=== PATIENT | male | born 1965 | race Caucasian/White ===

== ENCOUNTER 2022-03-11 10:38 | Emergency (ER) | payer OTHER, SELFPAY ==
--- NOTE | ~2022-03-11 | XR_ITS ---
EXAMINATION: XR FOOT, RIGHT CLINICAL INFORMATION: Stepped on screw COMPARISON: None TECHNIQUE: AP, lateral, and oblique views of the right foot. XR/XR foot RT 2V FINDINGS/IMPRESSION: Metallic screw projects into the soft tissues of the underside of the foot. There is no underlying osseous injury. Posterior and plantar calcaneal enthesophytes. No gross ankle joint effusion.
[2022-03-11 10:48] VITALS: BP 127/80; PULSE 82; RESP 16; TEMP 36.5; O2SAT 95; BMI 37.3
--- NOTE | 2022-03-11 10:54 | ED_ITS ---
HPI - General Adult General Chief complaint: General Medical Stated complaint: Screw in R foot Time Seen by Provider: 03/11/22 10:54 Source: patient Mode of arrival: ambulatory Limitations: no limitations History of Present Illness HPI narrative: Patient is a 57 year old male presenting to the emergency department today with a screw in his right foot. Patient states that he was walking barefoot when he stepped on a screw and now it is stuck in his foot. Patient states that his house is currently under construction and that is why a screw was left out. Patient denies any dizziness, lightheadedness, abdominal pain, nausea, vomiting, fever, chills, blurry vision, double vision, loss of vision, chest pain, difficulty breathing, shortness of breath, back pain, night sweats, pain with urination, increased urinary frequency, increased urinary urgency, blood in his urine or stool, syncope or a near syncopal episode, bowel incontinence, bladder incontinence, bowel retention, bladder retention, or any other complaints at this time. Patient states that he is not sure of his last tetanus shot and is considered a pre-diabetic. Onset (ago): minute(s) Location: right and lower extremity (foot) Radiation: non-radiation Severity: mild Severity scale (1-10): 3 Quality: dull Pain Consistency: constant Relieving factors: none Exacerbating factors: none Associated symptoms: denies other symptoms Treatments prior to arrival: none Related Data Previous Rx's Medication Instructions Recorded cephalexin 500 mg capsule 500 mg PO Q6H 10 days #40 caps 03/11/22 ciprofloxacin HCl 500 mg tablet 500 mg PO BID 10 days #20 tabs 03/11/22 (Cipro) Allergies Allergy/AdvReac Type Severity Reaction Status Date / Time No Known Allergies Allergy Unverified 04/01/20 16:10 [No Known Allergies*] Review of Systems Constitutional: Constitutional: Reports no additional constitutional complaints, Denies chills, Denies fever(s) and Denies night sweats Eyes: Eyes: Reports no additional eye complaints, Denies blurry vision, Denies change in vision, Denies diplopia, Denies eye discharge, Denies loss of vision and Denies eye pain ENT: Denies dizziness Cardiovascular: Cardiovascular: Reports no additional cardiovascular complaints, Denies chest pain, Denies lightheadedness, Denies Loss of Consciousness and Denies dyspnea Respiratory: Respiratory: Reports no additional respiratory complaints and Denies dyspnea Gastrointestinal: Gastrointestinal: Reports no additional gastrointestinal complaints, Denies abdominal pain, Denies melena, Denies hematochezia, Denies change in bowel habits and Denies change in stool character Genitourinary: Genitourinary: Reports no additional male genitourinary complaints, Denies hematuria, Denies oliguria, Denies difficulty urinating, Denies dysuria, Denies urinary frequency, Denies urinary hesitancy, Denies urinary incontinence and Denies urinary urgency Musculoskeletal: Musculoskeletal: Reports no additional musculoskeletal complaints, Denies numbness and Denies tingling Comments: screw in bottom of right foot Neurologic: Denies dizziness, Denies loss of vision, Denies numbness and Denies tingling Psychiatric: Psychiatric: Reports no additional psychiatric complaints Endocrine: Endocrine: Reports no additional endocrine complaints Hematologic/Lymphatic: Hematologic/Lymphatic: Reports no additional hematologic/lymphatic complaints Allergic/Immunologic: Allergic/Immunologic: Reports no additional allergic/immunologic complaints PMFSH Past Medical History Attestation statement: The following information was validated with the patient. Source: old records reviewed Social History Social History Advance Directives: Yes Advance Directives Information Provided: Yes Advance Directives on File: No Physical Exam ED Vital Signs: Vital Signs - 24 hr 03/11/22 10:48 Temperature 97.7 F Pulse Rate 82 Respiratory Rate 16 Blood Pressure 127/80 Pulse Oximetry 95 Oxygen Delivery Method Room Air BMI result Body Mass Index 37.3 Const General: cooperative, no acute distress, alert and awake Nutritional Appearance: well nourished Orientation/consciousness: patient oriented x3 Limitations: no limitations HENVT Head: Yes normal to inspection and Yes atraumatic Ears: hearing grossly normal bilaterally and external ears normal General nose exam: Normal external nose present, no nasal discharge noted and no epistaxis Face and sinus: Yes normal facial exam, No abrasion and No laceration Mouth: Normal oral and palatal mucosa present, no drooling and no muffled voice Eyes General: appearance normal, both eyes and all related structures Periorbital: periorbital findings normal Eyelids: Yes eyelids normal Conjunctivae: conjunctivae normal Pupils: Equal, round and reactive pupils present EOM: EOMs intact bilaterally Neck Neck: Yes normal visual inspection, Yes full ROM and Yes no lymphadenopathy Chest Chest palpation & inspection: normal inspection of the chest Resp Effort & Inspection: normal respiratory effort and able to speak in complete sentences Auscultation: clear to auscultation bilaterally Cardio Rate: regular rate Rhythm: regular rhythm GI Inspection: Yes normal to inspection Neuro General: patient oriented x3 and moves all extremities Cranial nerves: Yes Equal, round and reactive pupils present Cognition (Neuro): normal cognition Motor exam (neuro): 5/5 motor strength present throughout Sensory Exam: Normal double simultaneous stimulation for sensation Coordination: [id number] test normal Extrem Other: screw impaled in the plantar aspect of the right foot General: Yes full ROM and Yes capillary refill normal Psych Appearance: grossly normal Mental Status: mental status grossly normal Affect: normal affect Attitude: cooperative Thought process: Normal thought process present Thought content: Normal thought content present Insight: Good insight present (Psych) Procedures Foreign Body Removal Time Out Performed: yes Site: right and foot Description of foreign body: other (screw) Sedation/Analgesia: none Technique: manual removal and irrigation Confirmed by:: direct visualization Complications: none Post-procedure exam: awake, alert Neurovascular: normal distal pulse, normal capillary fill, distal light touch sensation intact, distal motor function normal, no signs of compartment syndrome and no change from pre-procedure Medical Decision Making MDM Narrative Medical decision making narrative: Patient is a 57 year old male presenting to the emergency department today with a screw in his right foot. Patient's physical exam showed a screw impaled in the plantar aspect of the right foot, no active bleeding around the screw. Patient's right foot x-ray showed a metallic screw projecting into the soft tissue. I explained my physical exam findings as well as all test results to the patient. I answered all questions asked by the patient. The screw was removed, without incident. I stressed the importance of the patient taking his medication as prescribed. I stressed the importance of the patient following up with his primary care provider. I stressed the importance of the patient returning to the emergency department immediately if his symptoms were to worsen or if he were to develop any dizziness, shortness of breath, difficulty breathing, chest pain, blurry vision, loss of vision, nausea, vomiting, abdominal pain, fever, chills, back pain, or any other complaints. Patient verbalized agreement and understanding with this treatment plan and discharge. Differential Diagnosis Differential Diagnosis: foreign body removal Medical Records Medical records reviewed: Yes I reviewed the patient's medical records. Imaging Data Right foot x-ray: Attestation: I personally reviewed and interpreted this imaging study as follows: My impression: Screw in soft tissue. Radiologist's impression: Vent. Rate: 078 BPM ? ? Atrial Rate: 078 BPM P-R Int: 160 ms? QRS Dur: 080 ms QT Int: 392 ms ? ? ? P-R-T Axes: 054 057 042 degrees QTc Int: 446 ms ? Normal sinus rhythm Normal ECG When compared with ECG of 10-SEP-2020 06:14, No significant change was found Discharge Plan Discharge Clinical Impression: Foreign body in foot Patient Disposition: Home, Self-Care Instructions: Puncture Wound (ED) Additional Instructions: Do NOT soak the punctured area. Keep the punctured area covered. Perform daily wound checks and daily dressing changes. Follow up with your primary care provider. Return to the emergency department immediately if your symptoms worsen or if you develop any dizziness, shortness of breath, difficulty breathing, ch est pain, blurry vision, loss of vision, nausea, vomiting, abdominal pain, fever, chills, back pain, or any other complaints. Prescriptions: New cephalexin 500 mg capsule 500 mg PO Q6H 10 Days Qty: 40 0RF ciprofloxacin HCl [Cipro] 500 mg tablet 500 mg PO BID 10 Days Qty: 20 0RF Referrals: [facility] [Provider Group] (Call to establish and follow up with a primary care provider. If you already have a primary care provider, please follow up with them. ) [facility] [facility] [place] [Provider Group] (Call to establish and follow up with a primary care provider. If you already have a primary care provider, please follow up with them. ) [facility] [Provider Group] (Call to establish and follow up with a primary care provider. If you already have a primary care provider, please follow up with them. ) Kamron Hyde DPM [Physician] - Interventions: ED Discharge Assessment Last Done: 03/11/22 11:59 Discharge Date/Time: 03/11/22 12:02 Print Language: Azeri
[2022-03-11] MEDS: Diphth,Pertus(ACell),Tet Adult 0.5 ML SYRINGE IM (11:40)
== END 2022-03-11 12:02 | disposition home or self-care (01) ==
PROVIDERS: Emergency Provider Emergency Medicine
DX: S91.341A Puncture wound with foreign body, right foot, initial encounter (principal); W45.8XXA Other foreign body or object entering through skin, initial encounter; Y93.H3 Activity, building and construction; Y92.019 Unspecified place in single-family (private) house as the place of occurrence of the external cause; Y99.9 Unspecified external cause status
CPT/HCPCS: 73620; 90471; 90715; 99282; 99284

== ENCOUNTER 2022-05-04 06:17 | Emergency (ER) | payer OTHER, SELFPAY ==
--- NOTE | ~2022-05-04 | US_ITS ---
EXAMINATION: US VENOUS ULTRASOUND WITH DOPPLER LOWER EXTREMITY, RIGHT CLINICAL INFORMATION: Right lower extremity pain with weightbearing COMPARISON: None TECHNIQUE: Ultrasound of the deep veins is performed from the hip to the calf with compression sonography and color and pulse Doppler assessment. Spectral analysis with color-flow imaging is performed. FINDINGS: There is normal venous compression and respiratory variation and augmented flow. The visualized common femoral vein, superficial femoral vein, profunda femoral vein, popliteal vein, and the trifurcation region shows no evidence of deep venous thrombosis. There is no significant popliteal fossa cyst. The contralateral left common femoral vein appears normal. If the patient's symptoms persist, followup ultrasound in 5 days 7 days might be of value to exclude proximal propagation from a non-visualized calf vein. US/US venous duplex LE RT IMPRESSION: No DVT demonstrated in the right lower extremity.
[2022-05-04 06:24] VITALS: BP 117/75; PULSE 109; RESP 20; TEMP 36.8; O2SAT 97; BMI 36.1
[2022-05-04 08:00] VITALS: BP 105/68; PULSE 91; RESP 14; TEMP 36.8; O2SAT 97
--- NOTE | 2022-05-04 08:12 | ED.EXTPRO ---
HPI - Extremity Problem General Chief complaint: Extremity Problem Stated complaint: leg pain radiates up Time Seen by Provider: 05/04/22 08:02 Source: patient Mode of arrival: ambulatory Limitations: no limitations History of Present Illness HPI Narrative: Patient is a 57-year-old male who presents emergency department for evaluation of atraumatic right leg pain. He reports at 1900 last night he was lying in bed when he realized he began developing right knee pain that was radiating up to the right thigh in towards his right hip. Today he states the pain is mostly within the thigh. He feels it is more painful with weight-bearing. Denies any prior history of pain like this in the past. He trialed Advil this morning without significant improvement. Denies fevers, chills, redness, warmth, rashes, wounds or lesions, numbness, tingling, swelling, fall or injury. Denies chest pain, shortness of breath, difficulty breathing. Denies history of DVT/PE, coagulation disorder, recent prolonged immobilization, surgery, personal history of cancer. Reports a history of arthritis to the knee but this does not feel typical of pain he has experienced in the past. He does report that a few months ago she stepped on a screw that was imbedded into the right foot, he came to the emergency department have that removed and had his tetanus vaccine updated at that time. Related Data Previous Rx's Medication Instructions Recorded cephalexin 500 mg capsule 500 mg PO Q6H 10 days #40 caps 03/11/22 ciprofloxacin HCl 500 mg tablet 500 mg PO BID 10 days #20 tabs 03/11/22 (Cipro) Allergies Allergy/AdvReac Type Severity Reaction Status Date / Time No Known Allergies Allergy Unverified 04/01/20 16:10 [No Known Allergies*] Review of Systems Review of Systems: Constitutional: No weight loss, fever, chills, weakness or fatigue. Skin: No rash or itching. Cardiovascular: No chest pain, chest pressure or chest discomfort. No palpitations or pedal edema. Respiratory: No shortness of breath, cough or sputum production. Gastrointestinal: No anorexia, nausea, vomiting or diarrhea. No abdominal pain or blood in stool. Genitourinary: No burning micturition. No urinary frequency or incontinence. Musculoskeletal: Positive muscle pain. Psychiatric: No depression or anxiety. Yes all other systems are reviewed and are negative PMFSH Past Medical History Attestation statement: The following information was validated with the patient. Source: old records reviewed Social History Social History Advance Directives: Yes Advance Directives Information Provided: Yes Advance Directives on File: No Physical Exam Vital Signs: Vital Signs: Last Vital Signs Temp 98.1 F 05/04/22 12:01 Pulse 101 H 05/04/22 12:01 Resp 15 05/04/22 12:01 BP 115/78 05/04/22 12:01 Pulse Ox 98 05/04/22 12:01 O2 Del Method 05/04/22 12:01 BMI result Body Mass Index 36.1 Appearance: Alert.?Oriented to person, place and time. No acute distress.?Normal affect. Eyes: Pupils equal, round and reactive to light.? ENT: Pharynx normal.?? Neck: Normal inspection.? Neck supple.?? CVS: Heart sounds normal. Normal heart rate and rhythm.? Pulses normal.?? Respiratory: No respiratory distress.? Lung sounds clear to auscultation bilaterally?? Abdomen: Soft and non-tender. Normoactive bowel sounds. Skin: Skin warm and dry.? Normal skin color.? Extremities: No lower extremity edema.? No calf ttp. 2+ DP/PT pulse bilaterally. Full AROM to the right hip knee and ankle intact. Neuro: Moves all extremities spontaneously. Sensation intact bilaterally. CN II-XII intact. No focal neuro deficits. Ambulates with normal steady gait. Course Course Course Narrative: Patient is a 57-year-old male with a past medical history of hypertension, hypercholesterolemia, glucose intolerance, anxiety who presents emergency department for evaluation of atraumatic right leg pain. Upon physical exam there are no abnormal findings. Extremities neurovascularly intact distally. No fevers, chills, redness, warmth, rash, does not appear consistent with an infectious etiology. He is able to ambulate with a steady gait though this does exacerbate his pain. Will obtain CBC, CMP, CPK, ultrasound venous duplex to exclude DVT. Reevaluation(s) Reevaluation #1: CBC reveals a normocytic anemia and leukocytosis at 14.1. No signs of infectious process no fever, chills, recent upper respiratory or GI symptoms, no dysuria or urinary frequency. Denies any recent known tick bites, or history of Lyme. CMP reveals acute kidney injury with BUN of 40 and creatinine of 1.46, patient received 1 L normal saline IVF, magnesium is low at 1.4 will replace with 2 g IV, CK 224. Will plan to repeat labs after IV fluids and magnesium. Ultrasound the right lower extremity reveals no DVT. Reevaluation #2: Magnesium is normalized, renal function with improvement. Suspect that myalgias were secondary to hypomagnesemia was well as dehydration. Patient with improvement in pain, currently 2/10. Ambulatory with a steady gait. Discussed plan of care for discharge home, outpatient follow-up with primary care provider. Reviewed worsens then return to emergency department for. All questions were answered, patient was discharged home in stable condition. Time: 14:24 MDM - Extremity (Nontraumatic) Medical Records Attestation: I reviewed the patient's medical records. Lab Data Attestation: I reviewed the patient's lab results. Result diagrams: 05/04/22 09:18 05/04/22 13:19 Labs: Lab Results 05/04/22 05/04/22 05/04/22 Range/Units 09:18 09:18 09:24 WBC 14.1 H (4.8-10.8) X10*3/uL RBC 4.53 L (4.60-5.80) X10*6/uL Hgb 13.1 L (14.0-18.0) g/dl Hct 38.1 L (42.0-52.0) % MCV 84.1 (80.0-98.0) fL MCH 28.9 (27.0-33.0) pg MCHC 34.4 (31.0-36.0) g/dl RDW 13.2 (11.0-16.0) % Plt Count 211 (160-400) X10*3/uL MPV 10.2 (9.4-12.4) fL Immature Gran % (Auto) 1.5 H (0.0-0.4) % Neut % (Auto) 75.5 H (45-73) % Lymph % (Auto) 12.9 L (20-40) % [place] % (Auto) 8.8 (2-11) % Eos % (Auto) 0.9 (0-4) % Baso % (Auto) 0.4 (0-2) % Lymph # (Auto) 1.8 (1.2-4.9) X10*3/uL [place] # (Auto) 1.2 (0.1-1.2) X10*3/uL Eos # (Auto) 0.1 (0.0-0.4) X10*3/uL Baso # (Auto) 0.1 (0.0-0.2) X10*3/uL Abs Immat Gran (auto) 0.21 H (0.00-0.03) X10*3/uL Absolute Neuts (auto) 10.6 H (2.0-8.3) x10*3/uL Absolute Nucleated RBC 0.000 (0.0-0.012) X10*3/uL Nucleated RBC % (auto) 0.0 (0.0-0.2) /100WBC Sodium 138 (135-145) mmol/L Potassium 3.8 (3.3-5.1) mmol/L Chloride 103 (96-108) mmol/L Carbon Dioxide 22 (22-29) mmol/L Anion Gap 17 (12-20) BUN 40 H (9-16) mg/dL Creatinine 1.46 H (0.5-1.4) mg/dL Estim Creat Clear Calc 64.4 Estimated GFR 50 Random Glucose 124 H (60-115) mg/dL Calcium 9.2 (8.4-10.2) mg/dL Magnesium 1.4 L* (1.6-2.6) mg/dL Total Bilirubin 0.8 (0.0-1.0) mg/dL AST 27 (5-37) U/L ALT 55 H (0-40) U/L Alkaline Phosphatase 82 (39-117) U/L Total Creatine Kinase 224 H (38-174) U/L Total Protein 7.4 (6.5-8.0) g/dL Albumin 4.5 (3.5-5.0) g/dL Urine Color Yellow Urine Appearance Clear Urine pH 5.0 (5.0-9.0) Ur Specific [place] 1.025 (1.005-1.025) Urine Protein Negative (Neg-Trace) mg/dL Urine Glucose (UA) Negative (Negative) mg/dL Urine Ketones Trace (Negative) mg/dL Urine Blood Negative (Negative) Urine Nitrite Negative (Negative) Ur Leukocyte Esterase Negative (Negative) 05/04/22 Range/Units 13:19 WBC (4.8-10.8) X10*3/uL RBC (4.60-5.80) X10*6/uL Hgb (14.0-18.0) g/dl Hct (42.0-52.0) % MCV (80.0-98.0) fL MCH (27.0-33.0) pg MCHC (31.0-36.0) g/dl RDW (11.0-16.0) % Plt Count (160-400) X10*3/uL MPV (9.4-12.4) fL Immature Gran % (Auto) (0.0-0.4) % Neut % (Auto) (45-73) % Lymph % (Auto) (20-40) % [place] % (Auto) (2-11) % Eos % (Auto) (0-4) % Baso % (Auto) (0-2) % Lymph # (Auto) (1.2-4.9) X10*3/uL [place] # (Auto) (0.1-1.2) X10*3/uL Eos # (Auto) (0.0-0.4) X10*3/uL Baso # (Auto) (0.0-0.2) X10*3/uL Abs Immat Gran (auto) (0.00-0.03) X10*3/uL Absolute Neuts (auto) (2.0-8.3) x10*3/uL Absolute Nucleated RBC (0.0-0.012) X10*3/uL Nucleated RBC % (auto) (0.0-0.2) /100WBC Sodium 141 (135-145) mmol/L Potassium 3.8 (3.3-5.1) mmol/L Chloride 103 (96-108) mmol/L Carbon Dioxide 25 (22-29) mmol/L Anion Gap 17 (12-20) BUN 34 H (9-16) mg/dL Creatinine 1.33 (0.5-1.4) mg/dL Estim Creat Clear Calc 70.7 Estimated GFR 55 Random Glucose 107 (60-115) mg/dL Calcium 9.2 (8.4-10.2) mg/dL Magnesium 1.6 (1.6-2.6) mg/dL Total Bilirubin 1.0 (0.0-1.0) mg/dL AST 21 (5-37) U/L ALT 48 H (0-40) U/L Alkaline Phosphatase 75 (39-117) U/L Total Creatine Kinase (38-174) U/L Total Protein 7.1 (6.5-8.0) g/dL Albumin 4.4 (3.5-5.0) g/dL Urine Color Urine Appearance Urine pH (5.0-9.0) Ur Specific [place] (1.005-1.025) Urine Protein (Neg-Trace) mg/dL Urine Glucose (UA) (Negative) mg/dL Urine Ketones (Negative) mg/dL Urine Blood (Negative) Urine Nitrite (Negative) Ur Leukocyte Esterase (Negative) Imaging Data Venous US: Radiologist's impression: US/US venous duplex LE RT IMPRESSION: No DVT demonstrated in the right lower extremity. Discharge Plan Discharge Clinical Impression: Myalgia, Acute dehydration Patient Disposition: Home, Self-Care Instructions: Dehydration (ED), Musculoskeletal Pain (ED) Additional Instructions: As we discussed, your myalgias, muscle aches, or likely secondary to the dehydration and lower magnesium levels. Your magnesium was replaced while in the emergency department any received IV fluids with improvement in her lab work. Please be sure to rest, stay well hydrated, You can take ibuprofen 200 mg, 3 tablets (600mg) every 6-8 hours as needed for pain, in addition to Tylenol 500 mg, 2 tablets (1,000mg) every 4-6 hours as needed for pain, but not to exceed 3 doses daily (3,000mg).? Contact your primary care provider to arrange for a follow-up visit next week, at that time they may consider repeating your blood work. Return to the emergency department with any new or worsening symptoms or concerns. Prescriptions: No Action cephalexin 500 mg capsule 500 mg PO Q6H 10 Days Qty: 40 0RF ciprofloxacin HCl [Cipro] 500 mg tablet 500 mg PO BID 10 Days Qty: 20 0RF Discharge Date/Time: 05/04/22 15:00
[2022-05-04 09:25] LABS: MANUAL DIFF FLAG NO
[2022-05-04 09:27] LABS: Basophils Absolute Auto 0.1 X10*3/uL (0.0-0.2); Basophils Percent Auto 0.4 % (0-2); Eosinophils Absolute Auto 0.1 X10*3/uL (0.0-0.4); Eosinophils Percent Auto 0.9 % (0-4); Hematocrit 38.1 % (42.0-52.0); Hemoglobin 13.1 g/dl (14.0-18.0); Imm Gran Abs Auto 0.21 X10*3/uL (0.00-0.03); Imm Gran Pct Auto 1.5 % (0.0-0.4); Lymphocytes Absolute Auto 1.8 X10*3/uL (1.2-4.9); Lymphocytes Percent Auto 12.9 % (20-40); Mean Corpuscular HGB Conc 34.4 g/dl (31.0-36.0); Mean Corpuscular Hemoglobin 28.9 pg (27.0-33.0); Mean Corpuscular Volume 84.1 fL (80.0-98.0); Mean Platelet Volume 10.2 fL (9.4-12.4); Monocytes Absolute Auto 1.2 X10*3/uL (0.1-1.2); Monocytes Percent Auto 8.8 % (2-11); Neutrophils Absolute Auto 10.6 x10*3/uL (2.0-8.3); Neutrophils Percent Auto 75.5 % (45-73); Platelet Count 211 X10*3/uL (160-400); Red Blood Count 4.53 X10*6/uL (4.60-5.80); Red Cell Distribution Width 13.2 % (11.0-16.0); White Blood Count 14.1 X10*3/uL (4.8-10.8)
[2022-05-04 09:37] LABS: Appearance Urine Clear; Color Urine Yellow; Glucose Urine UA Negative (Negative); Leukocyte Esterase Urine Negative (Negative); Nitrite Urine Negative (Negative); Specific Gravity - Urine 1.025 (1.005-1.025); Urine Blood Negative (Negative); Urine Ketones Trace mg/dL (Negative); Urine Protein Negative (Neg-Trace)
[2022-05-04 09:56] LABS: Alanine Aminotransferase 55 U/L (0-40); Albumin Level 4.5 g/dL (3.5-5.0); Alkaline Phosphatase 82 U/L (39-117); Anion Gap 17 (12-20); Aspartate Amino Transferase 27 U/L (5-37); Bilirubin Total 0.8 mg/dL (0.0-1.0); Blood Urea Nitrogen 40 mg/dL (9-16); Calcium 9.2 mg/dL (8.4-10.2); Carbon Dioxide 22 mmol/L (22-29); Chloride 103 mmol/L (96-108); Creatinine Clr Calc Pharmacy 64.4; Estimated Glomerular Filt Rate 50; Glucose Random 124 mg/dL (60-115); Magnesium 1.4 mg/dL (1.6-2.6); Potassium 3.8 mmol/L (3.3-5.1); Sodium 138 mmol/L (135-145); Total Protein 7.4 g/dL (6.5-8.0)
[2022-05-04] MEDS: Magnesium Sulfate/H2O 2 GM/50 ML PIGGYBACK IV (11:19)
[2022-05-04] MEDS: 0.9 % Sodium Chloride 1,000 ML 999 ML IV (11:23)
[2022-05-04 11:32] VITALS: BP 107/71; PULSE 97; RESP 14; TEMP 36.7; O2SAT 98
[2022-05-04 12:01] VITALS: BP 115/78; PULSE 101; RESP 15; TEMP 36.7; O2SAT 98
[2022-05-04 14:13] LABS: Alanine Aminotransferase 48 U/L (0-40); Albumin Level 4.4 g/dL (3.5-5.0); Alkaline Phosphatase 75 U/L (39-117); Anion Gap 17 (12-20); Aspartate Amino Transferase 21 U/L (5-37); Blood Urea Nitrogen 34 mg/dL (9-16); Calcium 9.2 mg/dL (8.4-10.2); Carbon Dioxide 25 mmol/L (22-29); Chloride 103 mmol/L (96-108); Creatinine Clr Calc Pharmacy 70.7; Estimated Glomerular Filt Rate 55; Glucose Random 107 mg/dL (60-115); Magnesium 1.6 mg/dL (1.6-2.6); Potassium 3.8 mmol/L (3.3-5.1); Sodium 141 mmol/L (135-145); Total Protein 7.1 g/dL (6.5-8.0)
== END 2022-05-04 15:00 | disposition home or self-care (01) ==
PROVIDERS: Nurse Practitioner Family; Emergency Provider Emergency Medicine
DX: M79.661 Pain in right lower leg (principal); R60.0 Localized edema; M79.10 Myalgia, unspecified site; E86.0 Dehydration; Z79.899 Other long term (current) drug therapy
CPT/HCPCS: 36415; 80053; 81003; 82550; 83735; 85025; 93971; 96365; 96366; 99283; 99284; J3475

== ENCOUNTER 2022-11-16 05:24 | Emergency (ER) | payer OTHER, SELFPAY ==
[2022-11-16 05:28] VITALS: BP 98/69; PULSE 107; RESP 18; TEMP 36.3; O2SAT 96; BMI 26.6
[2022-11-16 06:08] LABS: Basophils Absolute Auto 0.1 X10*3/uL (0.0-0.2); Basophils Percent Auto 0.7 % (0-2); Eosinophils Absolute Auto 0.2 X10*3/uL (0.0-0.4); Hematocrit 38.1 % (42.0-52.0); Imm Gran Abs Auto 0.06 X10*3/uL (0.00-0.03); Imm Gran Pct Auto 0.6 % (0.0-0.4); Lymphocytes Percent Auto 19.1 % (20-40); MANUAL DIFF FLAG NO; Mean Corpuscular HGB Conc 34.1 g/dl (31.0-36.0); Mean Corpuscular Hemoglobin 28.7 pg (27.0-33.0); Mean Corpuscular Volume 84.1 fL (80.0-98.0); Monocytes Percent Auto 9.3 % (2-11); Neutrophils Percent Auto 68.3 % (45-73); Platelet Count 235 X10*3/uL (160-400); Red Blood Count 4.53 X10*6/uL (4.60-5.80); Red Cell Distribution Width 13.2 % (11.0-16.0); White Blood Count 10.3 X10*3/uL (4.8-10.8)
[2022-11-16 06:08] LABS: Appearance Urine Clear; Color Urine Yellow; Glucose Urine UA Negative (Negative); Leukocyte Esterase Urine Trace (Negative); Nitrite Urine Negative (Negative); UMIC TRIGGER UACC YES; Urine Blood Negative (Negative); Urine Ketones Negative (Negative); Urine Protein Negative (Neg-Trace)
[2022-11-16 06:11] LABS: Bacteria Urine None Seen (None Seen); Hyaline Casts Urine 0-2 /LPF (0-2); RBC Urine 0-2 /HPF (0-2); Squamous Epithelial Cell Urine 0-2 /HPF (0-2); WBC Urine 0-5 /HPF (0-5)
[2022-11-16 06:28] LABS: Alanine Aminotransferase 30 U/L (0-40); Albumin Level 4.3 g/dL (3.5-5.0); Alkaline Phosphatase 66 U/L (39-117); Anion Gap 15 (12-20); Aspartate Amino Transferase 16 U/L (5-37); Bilirubin Direct 0.2 mg/dL (0.0-0.5); Bilirubin Total 0.8 mg/dL (0.0-1.0); Blood Urea Nitrogen 41 mg/dL (9-16); Calcium 9.6 mg/dL (8.4-10.2); Carbon Dioxide 25 mmol/L (22-29); Chloride 101 mmol/L (96-108); Creatinine Clr Calc Pharmacy 61.7; Estimated Glomerular Filt Rate 56; Glucose Random 146 mg/dL (60-115); Lipase 16 U/L (8-78); Potassium 3.6 mmol/L (3.3-5.1); Sodium 137 mmol/L (135-145); Total Protein 6.6 g/dL (6.5-8.0)
[2022-11-16 06:42] VITALS: BP 114/81; PULSE 101; RESP 14; TEMP 36.6; O2SAT 96
--- NOTE | 2022-11-16 07:09 | ED.ABDPAIN ---
HPI - Abdominal Pain General Chief Complaint: Abdominal Pain Stated Complaint: left sided pain Time Seen by Provider: 11/16/22 07:03 Source: patient Mode of arrival: ambulatory Limitations: no limitations History of Present Illness HPI narrative: 57-year-old male with a history of uncomplicated diverticulitis here with complaints of left lower quadrant abdominal pain which began yesterday with no radiation, no associated fevers, vomiting, urinary symptoms, diarrhea or constipation. Patient reports this pain feels very similar to his previous history of diverticulitis Related Data Previous Rx's Medication Instructions Recorded cephalexin 500 mg capsule 500 mg PO Q6H 10 days #40 caps 03/11/22 ciprofloxacin HCl 500 mg tablet 500 mg PO BID 10 days #20 tabs 03/11/22 (Cipro) amoxicillin 875 mg-potassium 1 tab PO BID #14 tabs 11/16/22 clavulanate 125 mg tablet Allergies Allergy/AdvReac Type Severity Reaction Status Date / Time No Known Allergies Allergy Unverified 04/01/20 16:10 [No Known Allergies*] Review of Systems Review of Systems Yes all other systems are reviewed and are negative Constitutional: Reports no additional constitutional complaints, Denies body ache(s), Denies chills, Denies fever(s), Denies headache(s) and Denies weakness Eyes: Reports no additional eye complaints and Denies change in vision Reports system reviewed and no additional complaints, except as documented, Denies dizziness, Denies headache(s), Denies nasal congestion, Denies nasal discharge and Denies neck pain Cardiovascular: Reports no additional cardiovascular complaints, Denies chest pain, Denies leg edema and Denies dyspnea Respiratory: Reports no additional respiratory complaints, Denies cough and Denies dyspnea Gastrointestinal: Reports no additional gastrointestinal complaints, Reports abdominal pain, Denies diarrhea, Denies nausea and Denies vomiting Genitourinary: Denies urinary incontinence Musculoskeletal: Reports no additional musculoskeletal complaints, Denies back pain, Denies arthralgias, Denies joint swelling, Denies neck pain, Denies numbness and Denies tingling Skin/Breast: Reports system reviewed and no additional complaints, except as docu and Denies rash Reports system reviewed and no additional complaints, except as documented, Denies dizziness, Denies headache(s), Denies numbness, Denies tingling and Denies weakness [facility] Past Medical History Attestation statement: The following information was validated with the patient. Source: old records reviewed and nursing notes reviewed Social History Social History Advance Directives: No Advance Directives Information Provided: Yes Physical Exam ED Vital Signs: Vital Signs - 24 hr 11/16/22 05:28 11/16/22 06:42 Temperature 97.3 F 97.9 F Pulse Rate 107 H 101 H Respiratory Rate 18 14 Blood Pressure 98/69 114/81 Pulse Oximetry 96 96 Oxygen Delivery Method Room Air Room Air BMI result Body Mass Index 26.6 Const General: cooperative, healthy appearing, comfortable and no acute distress Orientation/consciousness: patient oriented x3 Limitations: no limitations HENMT Head: Yes normal to inspection Ears: hearing grossly normal bilaterally Eyes General: appearance normal, both eyes and all related structures Pupils: Equal, round and reactive pupils present Neck Neck: Yes normal visual inspection and Yes full ROM Chest Chest palpation & inspection: normal inspection of the chest Resp Effort & Inspection: normal respiratory effort Auscultation: clear to auscultation bilaterally Cardio Rate: regular rate Rhythm: regular rhythm Peripheral pulses: Peripheral pulses 2+ throughout GI Inspection: Yes normal to inspection Palpation (GI): Soft to palpation, Tenderness to palpation present (GI) in the LLQ; Velasquez's sign negative, obturator sign negative, psoas sign negative, with no rebound tenderness and Rovsing's sign negative and no guarding Auscultation: normal bowel sounds Back/Spine/Pelvis Thoracic/Lumbar Spine: thoracic and lumbar spine normal to inspection Skin General skin exam: no rashes or lesions noted Neuro General: patient oriented x3 and moves all extremities Cranial nerves: Yes Equal, round and reactive pupils present Cognition (Neuro): normal cognition Gait exam (Neuro): Normal gait present Extrem General: Yes normal to inspection, Yes no pedal edema and Yes no calf tenderness Medical Decision Making Medical Decision Making MDM Narrative: 57 yo male with history of uncomplicated diverticulitis here with complaints of left lower quadrant abdominal pain since yesterday with no other associated systemic symptoms. On exam patient has some mild tenderness the left lower quadrant with no rebound or guarding. Overall nontoxic appearing. Patient reports feels very similar to previous episodes of diverticulitis. Patient had labs and a UA ordered from triage. this was reviewed and there is no signs of leukocytosis or shift. Normal BMP. UA negative for infection. Discussed with patient this is likely diverticulitis I have low suspicion for abscess, perforation, appendicitis. discussed with patient at this time I do not feel that a CT scan is necessary. I would initiate oral antibiotics for the next 7 days for presumed diverticulitis as patient clinically has diverticulitis. Patient is agreeable with this plan of care. I did recommend that he return for any worsening pain, fever or vomiting because at that time we may consider obtaining a CT scan. Patient is comfortable with this plan of care Differential Diagnosis Differential Diagnoses: The differential diagnosis associated with the presentation includes see above Lab Data MDM Lab Attestation statement: I reviewed the patient's lab results. 11/16/22 05:55 11/16/22 05:56 Labs: Lab Results 11/16/22 11/16/22 11/16/22 Range/Units 05:55 05:56 05:59 WBC 10.3 (4.8-10.8) X10*3/uL RBC 4.53 L (4.60-5.80) X10*6/uL Hgb 13.0 L (14.0-18.0) g/dl Hct 38.1 L (42.0-52.0) % MCV 84.1 (80.0-98.0) fL MCH 28.7 (27.0-33.0) pg MCHC 34.1 (31.0-36.0) g/dl RDW 13.2 (11.0-16.0) % Plt Count 235 (160-400) X10*3/uL MPV 10.0 (9.4-12.4) fL Immature Gran % (Auto) 0.6 H (0.0-0.4) % Neut % (Auto) 68.3 (45-73) % Lymph % (Auto) 19.1 L (20-40) % [place] % (Auto) 9.3 (2-11) % Eos % (Auto) 2.0 (0-4) % Baso % (Auto) 0.7 (0-2) % Lymph # (Auto) 2.0 (1.2-4.9) X10*3/uL [place] # (Auto) 1.0 (0.1-1.2) X10*3/uL Eos # (Auto) 0.2 (0.0-0.4) X10*3/uL Baso # (Auto) 0.1 (0.0-0.2) X10*3/uL Abs Immat Gran (auto) 0.06 H (0.00-0.03) X10*3/uL Absolute Neuts (auto) 7.0 (2.0-8.3) x10*3/uL Absolute Nucleated RBC 0.000 (0.0-0.012) X10*3/uL Nucleated RBC % (auto) 0.0 (0.0-0.2) /100WBC Sodium 137 (135-145) mmol/L Potassium 3.6 (3.3-5.1) mmol/L Chloride 101 (96-108) mmol/L Carbon Dioxide 25 (22-29) mmol/L Anion Gap 15 (12-20) BUN 41 H (9-16) mg/dL Creatinine 1.32 (0.5-1.4) mg/dL Estim Creat Clear Calc 61.7 Estimated GFR 56 Random Glucose 146 H (60-115) mg/dL Calcium 9.6 (8.4-10.2) mg/dL Total Bilirubin 0.8 (0.0-1.0) mg/dL Direct Bilirubin 0.2 (0.0-0.5) mg/dL AST 16 (5-37) U/L ALT 30 (0-40) U/L Alkaline Phosphatase 66 (39-117) U/L Total Protein 6.6 (6.5-8.0) g/dL Albumin 4.3 (3.5-5.0) g/dL Lipase 16 (8-78) U/L Urine Color Yellow Urine Appearance Clear Urine pH 6.0 (5.0-9.0) Ur Specific [place] 1.020 (1.005-1.025) Urine Protein Negative (Neg-Trace) mg/dL Urine Glucose (UA) Negative (Negative) mg/dL Urine Ketones Negative (Negative) mg/dL Urine Blood Negative (Negative) Urine Nitrite Negative (Negative) Ur Leukocyte Esterase Trace H (Negative) Urine RBC 0-2 (0-2) /HPF Urine WBC 0-5 (0-5) /HPF Ur Squamous Epith Cells 0-2 (0-2) /HPF Urine Bacteria None Seen (None Seen) Hyaline Casts 0-2 (0-2) /LPF Tests considered The following testing was considered but not selected: considered CT scan but low concern for appendicitis, bowel perforation, abscess- this was discussed with patient Prescription Management I considered prescription management with: Antibiotic Discharge Plan Discharge Clinical Impression: Diverticulitis Patient Disposition: Home, Self-Care Instructions: Diverticulitis (ED) Additional Instructions: at this time we do not feel that you need to have a CT scan of your abdomen. However if your pain was to worsen or you were to develop fever or vomiting at that time we would consider obtaining a CT scan. Please return if those symptoms develop Prescriptions: New amoxicillin-pot clavulanate 875-125 mg tablet 1 tab PO BID Qty: 14 0RF No Action cephalexin 500 mg capsule 500 mg PO Q6H 10 Days Qty: 40 0RF ciprofloxacin HCl [Cipro] 500 mg tablet 500 mg PO BID 10 Days Qty: 20 0RF Referrals: Physician,Unknown J [Primary Care Provider] - 1 week Stand Alone Forms: Work/School Release Interventions: ED Discharge Assessment Last Done: 11/16/22 07:14 Discharge Date/Time: 11/16/22 07:16
== END 2022-11-16 07:16 | disposition home or self-care (01) ==
PROVIDERS: Emergency Provider Emergency Medicine
DX: K57.92 Diverticulitis of intestine, part unspecified, without perforation or abscess without bleeding (principal); R10.32 Left lower quadrant pain
CPT/HCPCS: 36415; 80048; 80076; 81001; 83690; 85025; 99283

== ENCOUNTER 2023-02-27 05:36 | Inpatient (IN) | payer OTHER, SELFPAY ==
[2023-02-27] VITALS (8 sets, daily range): BP systolic 103–141; BP diastolic 58–89; PULSE 65–97; RESP 16–18; TEMP 36.3–36.7; O2SAT 94–98; BMI 35.1; BMI 37.5
--- NOTE | ~2023-02-27 | CT_ITS ---
EXAMINATION: CT ABDOMEN AND PELVIS WITH CONTRAST CLINICAL INFORMATION: Left lower quadrant abdominal pain. History of diverticulitis. COMPARISON: None available. TECHNIQUE: Multidetector volumetric images were obtained from the superior aspect of the liver through the pubic symphysis following administration 85 mL of Omnipaque 350 intravenous contrast. Sagittal and coronal reformatted images were obtained on the technologist's workstation. Oral contrast: No This CT examination was performed using dose optimization techniques as appropriate, variously including the following: *Automated exposure control *Adjustment of mA and/or kV according to patient size (this includes techniques or standardized protocols for targeted exams where dose is matched to indication/reason for exam; i.e. extremities or head) *Use of iterative reconstruction technique DLP: 1050 mGy-cm FINDINGS: PROTOZOOLOGIST: Nonobstructive bowel pattern. Mild scoliosis. Degenerative changes mild vertebral body height losses lower thoracic and L1 vertebral bodies. Degenerative changes. LUNG BASES: Bilateral lower lobe atelectasis, right greater than left. 7 mm subpleural medial right lower lobe nodule, 6:23. Nonenlarged heart. No pericardial effusion. LIVER, GALLBLADDER, AND BILIARY TREE: Diffuse hypoattenuation to the liver parenchyma. No focal hepatic lesion or biliary ductal dilatation is present. The gallbladder is unremarkable with no evidence of radiopaque gallstones, gallbladder wall thickening, or obvious pericholecystic inflammatory changes. PANCREAS: Unremarkable. SPLEEN: Splenic calcifications. ADRENAL GLANDS: Unremarkable. KIDNEYS AND URETERS: The kidneys are normal in size, shape, and attenuation. No hydronephrosis, hydroureter, or calculi seen. Nonspecific mild perinephric stranding. BLADDER: Unremarkable. GASTROINTESTINAL TRACT: Stomach is decompressed. Bowel pattern is nonobstructive. Unremarkable appendix is seen. Mild fecal retention. Diverticulosis is seen with diffuse sigmoid colonic wall thickening and pericolonic inflammatory changes. No free fluid or fluid collections/abscesses. Microperforations are suspected but no agustin pneumoperitoneum. ABDOMINAL WALL: Small fat filled umbilical hernia. LYMPH NODES: No pathologic lymphadenopathy. VASCULAR: Atherosclerotic calcifications nonaneurysmal aorta with patency of the mesenteric vessels. Unremarkable inferior vena cava and iliac veins. Patent portal system. PELVIC VISCERA: Unremarkable. OSSEOUS STRUCTURES: Mild scoliosis. Degenerative changes. No suspicious osseous lesions. CT/CT abdomen pelvis w IV con IMPRESSION: Acute diverticulitis. Possible microperforations but no drainable abscess. Hepatic steatosis. 7 mm right lower lobe subpleural pulmonary nodule. Per Fleischner criteria, if patient is low risk,, CT in 18-24 months is optional. In unknown risk and high risk patients, CT at 6-[address] at 18-24 months.
[2023-02-27 06:26] LABS: MANUAL DIFF FLAG NO
[2023-02-27 06:27] LABS: Appearance Urine Clear; Basophils Absolute Auto 0.1 X10*3/uL (0.0-0.2); Basophils Percent Auto 0.5 % (0-2); Color Urine Yellow; Eosinophils Absolute Auto 0.1 X10*3/uL (0.0-0.4); Glucose Urine UA Negative (Negative); Hematocrit 39.4 % (42.0-52.0); Hemoglobin 13.3 g/dl (14.0-18.0); Imm Gran Pct Auto 0.9 % (0.0-0.4); Leukocyte Esterase Urine Negative (Negative); Lymphocytes Absolute Auto 1.7 X10*3/uL (1.2-4.9); Lymphocytes Percent Auto 14.2 % (20-40); Mean Corpuscular HGB Conc 33.8 g/dl (31.0-36.0); Mean Corpuscular Hemoglobin 28.2 pg (27.0-33.0); Mean Corpuscular Volume 83.7 fL (80.0-98.0); Mean Platelet Volume 9.8 fL (9.4-12.4); Monocytes Absolute Auto 1.1 X10*3/uL (0.1-1.2); Monocytes Percent Auto 9.1 % (2-11); Neutrophils Absolute Auto 8.6 x10*3/uL (2.0-8.3); Neutrophils Percent Auto 74.3 % (45-73); Nitrite Urine Negative (Negative); Platelet Count 176 X10*3/uL (160-400); Red Blood Count 4.71 X10*6/uL (4.60-5.80); Specific Gravity - Urine 1.025 (1.005-1.025); Urine Blood Negative (Negative); Urine Ketones Negative (Negative); Urine Protein Trace mg/dL (Neg-Trace); White Blood Count 11.6 X10*3/uL (4.8-10.8)
--- NOTE | 2023-02-27 06:39 | PC.NURSE ---
Pt ambulated from the waiting room, pt states he has a hx of diverticulitis, and that it feels similar to that. Pt reports 9/10 sharp, tender LLQ pain, worsens with movement, LBM 4 am normal per pt. Denies N/V. Urine/blood collected, and sent to lab. [facility]ct[facility].
--- NOTE | 2023-02-27 06:40 | ED_ITS ---
HPI - Abdominal Pain General Chief Complaint: Abdominal Pain Stated Complaint: Abdominal pain Time Seen by Provider: 02/27/23 06:35 Source: patient, RN notes reviewed and old records reviewed Mode of arrival: ambulatory History of Present Illness HPI narrative: 58-year-old male with a past medical history of diverticulitis presenting to the ED complaining of left lower quadrant abdominal pain and nausea since yesterday. Admits pain is similar to prior diverticulitis flares. Denies fever/ chills, vomiting, diarrhea /constipation, dysuria / hematuria, flank pain MD elicited complaint: abdominal pain Related Data Home Medications Medication Instructions Recorded Confirmed acetaminophen 325 mg tablet 650 mg PO Q6H PRN Pain 02/27/23 02/27/23 (Tylenol) bupropion HCl 300 mg 24 hr tablet, 300 mg PO BEDTIME 02/27/23 02/27/23 extended release chlorthalidone 25 mg tablet 25 mg PO BEDTIME 02/27/23 02/27/23 diphenhydramine HCl 25 mg capsule 25 mg PO TID PRN Itching 02/27/23 02/27/23 (Benadryl) ibuprofen 200 mg tablet (Advil) 400 mg PO Q8H PRN Pain 02/27/23 02/27/23 lorazepam 2 mg tablet 2 mg PO BID@2000,0100 PRN Sleep 02/27/23 02/27/23 losartan 50 mg tablet 50 mg PO BEDTIME 02/27/23 02/27/23 metformin 500 mg tablet 500 mg PO BID 02/27/23 02/27/23 sildenafil 50 mg tablet 50 mg PO DAILY PRN intercourse 02/27/23 02/27/23 simvastatin 80 mg tablet 80 mg PO BEDTIME 02/27/23 02/27/23 Allergies Allergy/AdvReac Type Severity Reaction Status Date / Time No Known Allergies Allergy Verified 02/27/23 05:53 [No Known Allergies*] Review of Systems Review of Systems Constitutional: No Fever, No Chills, No Fatigue, No Malaise ENT/Mouth: No Ear Pain, No sore throat, No Rhinorrhea, No Swallowing Difficulty Eyes: No Eye Pain, No Swelling, No Redness, No Vision Changes Cardiovascular: No Chest Pain, No SOB, No Edema, No Palpitations Respiratory: No Cough, No Sputum, No Dyspnea Gastrointestinal: + Nausea, No Vomiting, No Diarrhea, No Constipation, + Abdominal pain Genitourinary: No Dysuria, No Urinary Frequency, No Hematuria, No Flank Pain, No Urinary Flow Changes, No Hesitancy Musculoskeletal: No joint pain, No Myalgias, No Joint Swelling Skin: No Skin Lesions, No rash Neuro: No Weakness, No Dizziness, No Headache Yes all other systems are reviewed and are negative Constitutional: Reports as per [facility] Past Medical History Attestation statement: The following information was validated with the patient. Source: old records reviewed Medical History (Updated 02/27/23 @ 12:48 by GAGAN Emanuel) Acute diverticulitis Borderline diabetes mellitus Erectile dysfunction HLD (hyperlipidemia) HTN (hypertension) Type 2 diabetes mellitus Social History Social History Household Members: Family Housing: House Do you presently have visiting nurse or other home services: No Alcohol intake: never Patient Tobacco Use Status: Never used Tobacco Smoked in Last 30 Days: No Use of substances other than those prescribed or required for medical reasons: No Have you been hit, kicked, punched, or otherwise hurt by someone within the past year? If so, by whom?: No Do you feel safe in your current relationship?: Yes Is there a partner from a previous relationship who is making you feel unsafe now?: No Are you made to feel afraid or neglected: No Advance Directives: No Advance Directives Information Provided: Yes Do you have thoughts of harming others: None Do you have a plan to hurt others: No Plan Recently lost weight without trying: No Poor oral hygiene: No Physical Exam ED Vital Signs: Vital Signs - 24 hr 02/27/23 05:50 02/27/23 07:55 02/27/23 09:26 Temperature 97.9 F 98.1 F 97.9 F Pulse Rate 97 84 85 Respiratory Rate 18 18 18 Blood Pressure 129/83 141/89 H Pulse Oximetry 94 98 96 Oxygen Delivery Method Room Air Room Air Room Air 02/27/23 11:32 Temperature 97.9 F Pulse Rate 77 Respiratory Rate 16 Blood Pressure 136/79 Pulse Oximetry 97 Oxygen Delivery Method Room Air BMI result Body Mass Index 35.1 Const General: cooperative, healthy appearing and no acute distress Orientation/consciousness: patient oriented x3 Limitations: no limitations HENMT Head: Yes normal to inspection and Yes atraumatic Ears: hearing grossly normal bilaterally General nose exam: Normal external nose present Face and sinus: Yes normal facial exam Eyes General: appearance normal, both eyes and all related structures EOM: EOMs intact bilaterally Neck Neck: Yes normal visual inspection and Yes no meningeal signs Resp Effort & Inspection: normal respiratory effort and no respiratory distress Auscultation: clear to auscultation bilaterally Cardio Rate: regular rate Heart sounds: S1 normal heart sound present and S2 normal heart sound present GI Inspection: Yes normal to inspection Palpation (GI): Soft to palpation, Tenderness to palpation present (GI) in the LLQ and suprapubicly; with no rebound tenderness, no guarding and not rigid General: Yes no CVA tenderness Back/Spine/Pelvis Back: no CVA tenderness Skin Rashes: no rashes Wounds: no wounds Neuro General: patient oriented x3, tone normal and no meningeal signs Cranial nerves: Yes CN's II-XII intact bilaterally Gait exam (Neuro): Normal gait present Extrem General: Yes normal to inspection Course Course Course Narrative: -[id number]-- leukocytosis of 11.6. H&H stable. BUN chronically elevated. CT abdomen pelvis w IV con IMPRESSION: Acute diverticulitis. Possible microperforations but no drainable abscess. Hepatic steatosis. 7 mm right lower lobe subpleural pulmonary nodule. Per Fleischner criteria, if patient is low risk,, CT in 18-24 months is optional. In unknown risk and high risk patients, CT at 6-[address] at 18-24 months. > Will consult General surgery Dr. Flores Medical Decision Making Medical Decision Making MDM Narrative: 58-year-old male with a past medical history of diverticulitis presenting to the ED complaining of left lower quadrant abdominal pain and nausea since yesterday. On exam vital signs stable, NAD, nontoxic appearing, abdomen soft left lower quadrant /suprapubic tenderness, no rebound or guarding, no CVAT. Concern for diverticulitis/colitis vs UTI or appendicitis. Lower suspicion for renal stone /pyelo, pancreatitis, cholecystitis /thigh cyst or SBO Plan: Labs, UA, CT AP, IVF, pain control, re-evaluate Please refer to course for remaining clinical decision making, interpretation of labs/imaging results, and discussions with consultants and/or family members. Differential Diagnosis Differential Diagnoses: The differential diagnosis associated with the presentation includes As above Admission/Observation Consideration of admission/observation: Escalation of care including admission/observation considered Lab Data MDM Lab Attestation statement: I reviewed the patient's lab results. 02/27/23 06:19 02/27/23 06:19 Labs: Lab Results 02/27/23 02/27/23 02/27/23 Range/Units 06:19 06:19 06:19 WBC 11.6 H (4.8-10.8) X10*3/uL RBC 4.71 (4.60-5.80) X10*6/uL Hgb 13.3 L (14.0-18.0) g/dl Hct 39.4 L (42.0-52.0) % MCV 83.7 (80.0-98.0) fL MCH 28.2 (27.0-33.0) pg MCHC 33.8 (31.0-36.0) g/dl RDW 13.0 (11.0-16.0) % Plt Count 176 D (160-400) X10*3/uL MPV 9.8 (9.4-12.4) fL Immature Gran % (Auto) 0.9 H (0.0-0.4) % Neut % (Auto) 74.3 H (45-73) % Lymph % (Auto) 14.2 L (20-40) % [place] % (Auto) 9.1 (2-11) % Eos % (Auto) 1.0 (0-4) % Baso % (Auto) 0.5 (0-2) % Lymph # (Auto) 1.7 (1.2-4.9) X10*3/uL [place] # (Auto) 1.1 (0.1-1.2) X10*3/uL Eos # (Auto) 0.1 (0.0-0.4) X10*3/uL Baso # (Auto) 0.1 (0.0-0.2) X10*3/uL Abs Immat Gran (auto) 0.10 H (0.00-0.03) X10*3/uL Absolute Neuts (auto) 8.6 H (2.0-8.3) x10*3/uL Absolute Nucleated RBC 0.000 (0.0-0.012) X10*3/uL Nucleated RBC % (auto) 0.0 (0.0-0.2) /100WBC Sodium 137 (135-145) mmol/L Potassium 3.4 (3.3-5.1) mmol/L Chloride 103 (96-108) mmol/L Carbon Dioxide 25 (22-29) mmol/L Anion Gap 12 (12-20) BUN 26 H (9-16) mg/dL Creatinine 1.31 (0.5-1.4) mg/dL Estim Creat Clear Calc 69.8 Estimated GFR 56 Random Glucose 154 H (60-115) mg/dL Estimat Average Glucose mg/dL Hemoglobin A1c % % Lactic Acid (0.5-2.0) mmol/L Calcium 9.6 (8.4-10.2) mg/dL Total Bilirubin 0.6 (0.0-1.0) mg/dL Direct Bilirubin 0.2 (0.0-0.5) mg/dL AST 12 (5-37) U/L ALT 24 (0-40) U/L Alkaline Phosphatase 84 (39-117) U/L Total Protein 7.2 (6.5-8.0) g/dL Albumin 4.1 (3.5-5.0) g/dL Lipase 14 (8-78) U/L Urine Color Yellow Urine Appearance Clear Urine pH 6.0 (5.0-9.0) Ur Specific [place] 1.025 (1.005-1.025) Urine Protein Trace (Neg-Trace) mg/dL Urine Glucose (UA) Negative (Negative) mg/dL Urine Ketones Negative (Negative) mg/dL Urine Blood Negative (Negative) Urine Nitrite Negative (Negative) Ur Leukocyte Esterase Negative (Negative) 02/27/23 02/27/23 Range/Units 06:19 09:09 WBC (4.8-10.8) X10*3/uL RBC (4.60-5.80) X10*6/uL Hgb (14.0-18.0) g/dl Hct (42.0-52.0) % MCV (80.0-98.0) fL MCH (27.0-33.0) pg MCHC (31.0-36.0) g/dl RDW (11.0-16.0) % Plt Count (160-400) X10*3/uL MPV (9.4-12.4) fL Immature Gran % (Auto) (0.0-0.4) % Neut % (Auto) (45-73) % Lymph % (Auto) (20-40) % [place] % (Auto) (2-11) % Eos % (Auto) (0-4) % Baso % (Auto) (0-2) % Lymph # (Auto) (1.2-4.9) X10*3/uL [place] # (Auto) (0.1-1.2) X10*3/uL Eos # (Auto) (0.0-0.4) X10*3/uL Baso # (Auto) (0.0-0.2) X10*3/uL Abs Immat Gran (auto) (0.00-0.03) X10*3/uL Absolute Neuts (auto) (2.0-8.3) x10*3/uL Absolute Nucleated RBC (0.0-0.012) X10*3/uL Nucleated RBC % (auto) (0.0-0.2) /100WBC Sodium (135-145) mmol/L Potassium (3.3-5.1) mmol/L Chloride (96-108) mmol/L Carbon Dioxide (22-29) mmol/L Anion Gap (12-20) BUN (9-16) mg/dL Creatinine (0.5-1.4) mg/dL Estim Creat Clear Calc Estimated GFR Random Glucose (60-115) mg/dL Estimat Average Glucose 143 mg/dL Hemoglobin A1c % 6.6 % Lactic Acid 1.6 (0.5-2.0) mmol/L Calcium (8.4-10.2) mg/dL Total Bilirubin (0.0-1.0) mg/dL Direct Bilirubin (0.0-0.5) mg/dL AST (5-37) U/L ALT (0-40) U/L Alkaline Phosphatase (39-117) U/L Total Protein (6.5-8.0) g/dL Albumin (3.5-5.0) g/dL Lipase (8-78) U/L Urine Color Urine Appearance Urine pH (5.0-9.0) Ur Specific [place] (1.005-1.025) Urine Protein (Neg-Trace) mg/dL Urine Glucose (UA) (Negative) mg/dL Urine Ketones (Negative) mg/dL Urine Blood (Negative) Urine Nitrite (Negative) Ur Leukocyte Esterase (Negative) Radiology Impression Discussion of test interpretation with radiology: I have reviewed the radiologist's reading. External Record Review External record reviewed: Inpatient record, Office record, Outpatient record, Prior outpatient labs, Prior outpatient radiology, Primary care record and Outside ED record Tests considered The following testing was considered but not selected: As above Prescription Management I considered prescription management with: Pain Medication and Antibiotic Medications Administered Generic Name Dose Route Start Last Admin Trade Name Freq PRN Reason Stop Dose Admin Acetaminophen 650 mg 02/27/23 12:22 02/27/23 12:52 Acetaminophen 325 Mg Tablet PO 650 mg Q6H PRN Administration Pain, Mild (Pain Scale 1-3) Heparin Sodium (Porcine) 5,000 unit 02/27/23 12:30 02/27/23 12:52 Heparin Sodium,Porcine 5,000 Unit/Ml Vial SUBCUT 5,000 unit Q12H ERASTO Administration Piperacillin Sod/Tazobactam 100 mls @ 200 mls/hr 02/27/23 15:30 02/27/23 16:32 Sod 4.5 gm/ Sodium Chloride IV Infused Q6H ERASTO Infusion Morphine Sulfate 2 mg 02/27/23 12:22 02/27/23 14:03 Morphine Sulfate 4 Mg/Ml Cartridge IVPUSH 2 mg Q4H PRN Administration Pain, Severe (Pain Scale 7-10) Protocol Ondansetron HCl 4 mg 02/27/23 12:22 02/27/23 14:03 Ondansetron Hcl 4 Mg/2 Ml Vial IVPUSH 4 mg Q8H PRN Administration Nausea and Vomiting Sodium Chloride 3 ml 02/27/23 16:00 02/27/23 15:03 0.9 % Sodium Chloride Flush 3 Ml Syringe IVFLUSH 3 ml QSHIFT ERASTO Administration Discontinued Medications Generic Name Dose Route Start Last Admin Trade Name Freq PRN Reason Stop Dose Admin Sodium Chloride 1,000 mls @ 999 mls/hr 02/27/23 07:00 02/27/23 08:48 Ns IV 02/27/23 08:00 Infused .Q1H1M ERASTO Infusion Piperacillin Sod/Tazobactam 50 mls @ 100 mls/hr 02/27/23 08:52 08/15/23 10:36 Sod 3.375 gm/ Sodium Chloride IV 02/27/23 09:21 Infused ONCE ONE Infusion Iohexol 85 ml 02/27/23 08:09 02/27/23 08:10 Iohexol 350 Mg/Ml 100 Ml Infus..Btl IV 02/27/23 08:10 85 ml ONCE ONE Administration Ketorolac Tromethamine 15 mg 02/27/23 06:48 02/27/23 07:16 Ketorolac Tromethamine 15 Mg/Ml Vial IVPUSH 02/27/23 06:49 15 mg ONCE ONE Administration Ondansetron HCl 4 mg 02/27/23 06:48 02/27/23 07:16 Ondansetron Hcl 4 Mg/2 Ml Vial IVPUSH 02/27/23 06:49 4 mg ONCE ONE Administration Critical Care Time Critical Care Time Critical Care Time: Yes Total Critical Care Time: 45 Attestation: I have personally provided critical care time exclusive of time spent on separately billable procedures. Time includes review of lab data, radiology results, discussion with consultants, and monitoring for potential decompensation. Intervention performed as documented. Discharge Plan Discharge Clinical Impression: Acute diverticulitis Patient Disposition: Admitted As Inpatient Interventions: Admission Worksheet (ED) Last Done: 02/27/23 16:28 Discharge Date/Time: 02/27/23 16:29
[2023-02-27 06:42] LABS: Alanine Aminotransferase 24 U/L (0-40); Albumin Level 4.1 g/dL (3.5-5.0); Alkaline Phosphatase 84 U/L (39-117); Anion Gap 12 (12-20); Aspartate Amino Transferase 12 U/L (5-37); Bilirubin Direct 0.2 mg/dL (0.0-0.5); Bilirubin Total 0.6 mg/dL (0.0-1.0); Blood Urea Nitrogen 26 mg/dL (9-16); Calcium 9.6 mg/dL (8.4-10.2); Carbon Dioxide 25 mmol/L (22-29); Chloride 103 mmol/L (96-108); Creatinine Clr Calc Pharmacy 69.8; Estimated Glomerular Filt Rate 56; Glucose Random 154 mg/dL (60-115); Lipase 14 U/L (8-78); Potassium 3.4 mmol/L (3.3-5.1); Sodium 137 mmol/L (135-145); Total Protein 7.2 g/dL (6.5-8.0)
[2023-02-27] MEDS: 0.9 % Sodium Chloride 1,000 ML 999 ML IV (07:16)
[2023-02-27] MEDS: Ketorolac Tromethamine 15 MG/ML VIAL IVPUSH (07:16)
[2023-02-27] MEDS: ondansetron HCL 4 MG/2 ML VIAL IVPUSH ×2 (07:16→14:03)
--- NOTE | 2023-02-27 07:22 | PC.NURSE ---
Addendum entered by Allie Harrington RN 02/27/23 07:23: #20 IV placed Original Note: patient resting in bed awaiting ct scan, 18# IV placed in the lateral L AC
[2023-02-27] MEDS: iohexoL 350 MG/ML 100 ML INFUS..BTL 85 ML IV (08:10)
[2023-02-27 09:25] LABS: Lactic Acid 1.6 mmol/L (0.5-2.0)
--- NOTE | 2023-02-27 09:26 | PHA.MEDREC ---
Pharmacy Consult ? Medication Reconciliation Pharmacy has completed the medication reconciliation. Spoke to patient to confirm meds.
--- NOTE | 2023-02-27 09:27 | PM.CNGS ---
History of Present Illness Consult details Consult date: 02/27/23 Narrative: The patient is a 58-year-old gentleman presenting with his 3rd episode of sigmoid diverticulitis. He reports his 1st was approximately 8-10 years ago and does not recall the details of the 2nd episode. Patient notes that there is no family history of inflammatory bowel disease or GI malignancy, and that his last colonoscopy at [facility] was approximately 4 years ago. Patient notes that he started becoming obstipated yesterday morning and had progressive left lower quadrant pain that was localized. He is passing gas but denies any blood per rectum. He notes he had a bowel movement that was nonbloody but then at 04:00 o'clock this morning. Patient's past medical history includes prediabetes, he does not know his hemoglobin A1c, hypertension, hypercholesterolemia, he notes that he believes he has obstructive sleep apnea and the study was done years ago, however he never obtained or receive the results. 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 of Systems Review of Systems: Yes all other systems are reviewed and are negative Constitutional: Constitutional: Reports as per [facility] Social History Social History Alcohol intake: never Smoked in Last 30 Days: No Use of substances other than those prescribed or required for medical reasons: No Advance Directives: No Advance Directives Information Provided: Yes Meds Allergies Allergy/AdvReac Type Severity Reaction Status Date / Time No Known Allergies Allergy Verified 02/27/23 05:53 [No Known Allergies*] Active Medications: Current Medications Pharmacy Consult (Consult Rx Perform Med Rec) 1 each MISCELLANE ONCE STA Stop: 02/27/23 08:57 Home Medications Medication Instructions Recorded Confirmed Last Taken Type acetaminophen 325 mg tablet 650 mg PO Q6H PRN Pain 02/27/23 02/27/23 Unknown History (Tylenol) bupropion HCl 300 mg 24 hr tablet, 300 mg PO BEDTIME 02/27/23 02/27/23 02/26/23 History extended release chlorthalidone 25 mg tablet 25 mg PO BEDTIME 02/27/23 02/27/23 02/26/23 History diphenhydramine HCl 25 mg capsule 25 mg PO TID PRN Itching 02/27/23 02/27/23 Unknown History (Benadryl) ibuprofen 200 mg tablet (Advil) 400 mg PO Q8H PRN Pain 02/27/23 02/27/23 Unknown History lorazepam 2 mg tablet 1 mg PO BID@2000,0100 PRN Sleep 02/27/23 02/27/23 Unknown History losartan 50 mg tablet 50 mg PO BEDTIME 02/27/23 02/27/23 02/26/23 History metformin 500 mg tablet 500 mg PO BID 02/27/23 02/27/23 02/26/23 History sildenafil 50 mg tablet 50 mg PO DAILY PRN intercourse 02/27/23 02/27/23 Unknown History simvastatin 80 mg tablet 80 mg PO BEDTIME 02/27/23 02/27/23 02/26/23 History Physical Exam Vital Signs: Vital Signs: Last Vital Signs Temp 98.1 F 02/27/23 07:55 Pulse 84 02/27/23 07:55 Resp 18 02/27/23 07:55 BP 129/83 02/27/23 05:50 Pulse Ox 98 02/27/23 07:55 O2 Del Method Room Air 02/27/23 07:55 BMI result Body Mass Index 35.1 The patient is non-toxic & in good spirits NC/AT, PERRLA, EOMI Mood, affect & judgment all appear appropriate Sclera anicteric conjunctiva pink and moist Oropharynx is clear with no aphthous ulcers, Mallampati class 4, mucous membranes moist Neck is supple with no masses, adenopathy or bruits Thyroid is nontender and free of dominant masses Heart is regular, normal S1-S2 no rubs or murmurs Lungs are clear and equal anteriorly with no audible wheezing, rubs or dullness to percussion Abdomen is obese with no demonstrable hernias. Localized left lower quadrant pain with no peritoneal sign is present. The remaining abdomen is nontender with no peritoneal sign. No HSM, rebound, rigidity, guarding, masses or bruits are present. Rectal exam is deferred Skin has good turgor and is free of rashes Extremities free of cyanosis clubbing edema Results Labs 02/27/23 06:19 08/15/23 06:19 Labs: Abnormal lab results 02/27/23 02/27/23 Range/Units 06:19 06:19 WBC 11.6 H (4.8-10.8) X10*3/uL Hgb 13.3 L (14.0-18.0) g/dl Hct 39.4 L (42.0-52.0) % Immature Gran % (Auto) 0.9 H (0.0-0.4) % Neut % (Auto) 74.3 H (45-73) % Lymph % (Auto) 14.2 L (20-40) % Abs Immat Gran (auto) 0.10 H (0.00-0.03) X10*3/uL Absolute Neuts (auto) 8.6 H (2.0-8.3) x10*3/uL BUN 26 H (9-16) mg/dL Random Glucose 154 H (60-115) mg/dL Short CBC 02/27/23 Range/Units 06:19 WBC 11.6 H (4.8-10.8) X10*3/uL Hgb 13.3 L (14.0-18.0) g/dl Hct 39.4 L (42.0-52.0) % Plt Count 176 D (160-400) X10*3/uL BMP 02/27/23 06:19 Sodium 137 Potassium 3.4 Chloride 103 Carbon Dioxide 25 BUN 26 H Creatinine 1.31 Calcium 9.6 Liver Function 02/27/23 Range/Units 06:19 Total Bilirubin 0.6 (0.0-1.0) mg/dL Direct Bilirubin 0.2 (0.0-0.5) mg/dL AST 12 (5-37) U/L ALT 24 (0-40) U/L Alkaline Phosphatase 84 (39-117) U/L Albumin 4.1 (3.5-5.0) g/dL Urine 02/27/23 Range/Units 06:19 Urine Color Yellow Urine Appearance Clear Urine pH 6.0 (5.0-9.0) Ur Specific [place] 1.025 (1.005-1.025) Urine Protein Trace (Neg-Trace) mg/dL Urine Glucose (UA) Negative (Negative) mg/dL All other labs normal. HbA1C pending Imaging Abdomen CT scan report/results: report reviewed and image reviewed CT scan - pelvis: report reviewed and image reviewed Assessment and Plan (1) Acute diverticulitis: Status: Acute (2) Borderline diabetes mellitus: Status: Acute (3) HTN (hypertension): Status: Acute (4) Obesity due to excess calories with serious comorbidity: Status: Acute (5) Dehydration: Status: Acute Plan While the CT demonstrates a contained perforation, the patient's abdominal exam is reassuring and the patient does not need emergent exploration. Patient does need an interval colonoscopy in several months given his anemia on today's exam and also to exclude malignancy and confirm the diagnosis. The option of an elective resection can be discussed after that, however, current dated do not endorse sigmoid colectomy based on number of diverticulitis episodes but rather based on patient needs/expectations. Would recommend NPO for 24 hours and reassessment, IV Zosyn and monitoring of his comorbidities. I have ordered a hemoglobin A1c cyst the patient's pre diabetes is being managed with metformin on an outpatient basis. Time Spent With Patient Time: Total time managing care of this patient today ____ minutes. Procedures Date of Service Date of Service: 02/27/23
[2023-02-27] MEDS: Piperacillin Sodium/Tazobactam 3.375 GM in 0.9 % Sodium Chloride 50 ML IV (09:35)
--- NOTE | 2023-02-27 10:09 | PC.NURSE ---
patient resting in bed, shows no signs of distress, call flores within reach.
[2023-02-27 10:19] LABS: Estimated Average Glucose 143 mg/dL; Hemoglobin A1c % 6.6 %
--- NOTE | 2023-02-27 12:35 | PM.IMHP ---
History of Present Illness Date of Service: 02/27/23 Attending physician on admission: Jose Serra Chief Complaint: abd pain 58 year old male with history htn, hld, ed, type 2 diabetes, mood disorder, and history uncomplicated diverticulitis presented to the ED for evaluation of LLQ pain that started around noon yesterday. He is here today with his daughter. OStates today that has been some additional cramping across the low abdomen with radiation to the left side. Reports pain is 10/10 at times. He is passing gas and moving bowels. No fevers, chills, nausea, vomiting, diarrhea, constipation, melena, or hematochezia. Has had diverticulitis 3 times without complication and states feels similar. Last colonoscopy was about 7 years ago and questions polyps. On arrival, VSS. Mild leukocytosis of 11.6. Renal function baseline, lytes normal. Hgb A1c 6.6%. lactic acid 1.6. UA unremarkable. CT abd/pelvis shows acute diverticulitis with possible microperforations but no drainable abscess. There is also 7mm RUL pulmonary nodule, repeat CT 18-24 months. In the ED received IV zosyn, torodol, and IVF. Evaluated by gen surgery who does not feel case is surgical at this time but recommending admission for IV abx and NPO. He is also complaining of right shoulder pain. He is 6w post op from rotator cuff repair. Review of Systems Review of Systems: General: No fevers, malaise, unintentional weight loss HEENT: No blurred vision, diplopia. No sore throat, nasal congestion, rhinorrhea, sinus pain, ear pain Cardiovascular: No chest pain, palpitations, or leg edema Respiratory: No shortness of breath, wheezing, cough GI: +abd pain. No nausea, vomiting, diarrhea, constipation, melena, hematochezia : No dysuria, hematuria, increased urinary frequency, decreased urinary output MSK: No myalgia, back pain Neuro: No headaches, weakness, paresthesias Skin: No rashes or lesions [facility]LY [facility], [facility] Medical History (Updated 02/27/23 @ 12:48 by GAGAN Emanuel) Acute diverticulitis Borderline diabetes mellitus Erectile dysfunction HLD (hyperlipidemia) HTN (hypertension) Type 2 diabetes mellitus Social History Alcohol intake: never Smoked in Last 30 Days: No Use of substances other than those prescribed or required for medical reasons: No Advance Directives: No Advance Directives Information Provided: Yes Meds Allergies Allergy/AdvReac Type Severity Reaction Status Date / Time No Known Allergies Allergy Verified 02/27/23 05:53 [No Known Allergies*] Active Medications: Current Medications Acetaminophen (Acetaminophen 325 Mg Tablet) 650 mg PO Q6H PRN PRN Reason: Pain, Mild (Pain Scale 1-3) Bupropion HCl (Bupropion Hcl Xl 300 Mg Tab.Er.24h) 300 mg PO BEDTIME ERASTO Diphenhydramine HCl (Diphenhydramine Hcl 25 Mg Capsule) 25 mg PO TID PRN PRN Reason: Itching Heparin Sodium (Porcine) (Heparin Sodium,Porcine 5,000 Unit/Ml Vial) 5,000 unit SUBCUT Q12H ERASTO Piperacillin Sod/Tazobactam (Sod 4.5 gm/ Sodium Chloride) 100 mls @ 200 mls/hr IV Q6H ERASTO Lorazepam (Lorazepam 1 Mg Tablet) 2 mg PO BID@2000,0100 PRN PRN Reason: Sleep Losartan Potassium (Losartan Potassium 50 Mg Tablet) 50 mg PO BEDTIME ERASTO; Protocol Morphine Sulfate (Morphine Sulfate 4 Mg/Ml Cartridge) 2 mg IVPUSH Q4H PRN; Protocol PRN Reason: Pain, Severe (Pain Scale 7-10) Non-Formulary Medication (Chlorthalidone) 25 mg PO BEDTIME ERASTO Non-Formulary Medication (Simvastatin) 80 mg PO BEDTIME ERASTO Ondansetron HCl (Ondansetron Hcl 4 Mg/2 Ml Vial) 4 mg IVPUSH Q8H PRN PRN Reason: Nausea and Vomiting Oxycodone HCl (Oxycodone Hcl Immed Release 5 Mg Tablet) 5 mg PO Q6H PRN PRN Reason: Pain, Moderate(Pain Scale 4-6) Sodium Chloride (0.9 % Sodium Chloride Flush 3 Ml Syringe) 3 ml IVFLUSH QSHIFT [facility] Home Medications Medication Instructions Recorded Confirmed Last Taken Type acetaminophen 325 mg tablet 650 mg PO Q6H PRN Pain 02/27/23 02/27/23 Unknown History (Tylenol) bupropion HCl 300 mg 24 hr tablet, 300 mg PO BEDTIME 02/27/23 02/27/23 02/26/23 History extended release chlorthalidone 25 mg tablet 25 mg PO BEDTIME 02/27/23 02/27/23 02/26/23 History diphenhydramine HCl 25 mg capsule 25 mg PO TID PRN Itching 02/27/23 02/27/23 Unknown History (Benadryl) ibuprofen 200 mg tablet (Advil) 400 mg PO Q8H PRN Pain 02/27/23 02/27/23 Unknown History lorazepam 2 mg tablet 2 mg PO BID@2000,0100 PRN Sleep 02/27/23 02/27/23 Unknown History losartan 50 mg tablet 50 mg PO BEDTIME 02/27/23 02/27/23 02/26/23 History metformin 500 mg tablet 500 mg PO BID 02/27/23 02/27/23 02/26/23 History sildenafil 50 mg tablet 50 mg PO DAILY PRN intercourse 02/27/23 02/27/23 Unknown History simvastatin 80 mg tablet 80 mg PO BEDTIME 02/27/23 02/27/23 02/26/23 History Physical Exam Vital Signs and Narrative: Vital Signs: Last Vital Signs Temp 97.9 F 02/27/23 11:32 Pulse 77 02/27/23 11:32 Resp 16 02/27/23 11:32 BP 136/79 02/27/23 11:32 Pulse Ox 97 02/27/23 11:32 O2 Del Method Room Air 02/27/23 11:32 BMI result Body Mass Index 35.1 Results Labs 02/27/23 06:19 02/27/23 06:19 Labs: Laboratory Results - last 24 hr 02/27/23 02/27/23 02/27/23 06:19 06:19 06:19 MCV 83.7 MCH 28.2 MCHC 33.8 RDW 13.0 Plt Count 176 D MPV 9.8 Immature Gran % (Auto) 0.9 H Neut % (Auto) 74.3 H Lymph % (Auto) 14.2 L [place] % (Auto) 9.1 Eos % (Auto) 1.0 Baso % (Auto) 0.5 Lymph # (Auto) 1.7 [place] # (Auto) 1.1 Eos # (Auto) 0.1 Baso # (Auto) 0.1 Abs Immat Gran (auto) 0.10 H Absolute Neuts (auto) 8.6 H Absolute Nucleated RBC 0.000 Nucleated RBC % (auto) 0.0 Anion Gap 12 Estim Creat Clear Calc 69.8 Estimated GFR 56 Random Glucose 154 H Estimat Average Glucose Hemoglobin A1c % Lactic Acid Calcium 9.6 Total Bilirubin 0.6 Direct Bilirubin 0.2 AST 12 ALT 24 Alkaline Phosphatase 84 Total Protein 7.2 Albumin 4.1 Lipase 14 Urine Color Yellow Urine Appearance Clear Urine pH 6.0 Ur Specific [place] 1.025 Urine Protein Trace Urine Glucose (UA) Negative Urine Ketones Negative Urine Blood Negative Urine Nitrite Negative Ur Leukocyte Esterase Negative 02/27/23 02/27/23 06:19 09:09 MCV MCH MCHC RDW Plt Count MPV Immature Gran % (Auto) Neut % (Auto) Lymph % (Auto) [place] % (Auto) Eos % (Auto) Baso % (Auto) Lymph # (Auto) [place] # (Auto) Eos # (Auto) Baso # (Auto) Abs Immat Gran (auto) Absolute Neuts (auto) Absolute Nucleated RBC Nucleated RBC % (auto) Anion Gap Estim Creat Clear Calc Estimated GFR Random Glucose Estimat Average Glucose 143 Hemoglobin A1c % 6.6 Lactic Acid 1.6 Calcium Total Bilirubin Direct Bilirubin AST ALT Alkaline Phosphatase Total Protein Albumin Lipase Urine Color Urine Appearance Urine pH Ur Specific [place] Urine Protein Urine Glucose (UA) Urine Ketones Urine Blood Urine Nitrite Ur Leukocyte Esterase Imaging Radiologist's Impressions: Impressions Abdomen/Pelvis CT 02/27/23 08:10 IMPRESSION: Acute diverticulitis. Possible microperforations but no drainable abscess. Hepatic steatosis. 7 mm right lower lobe subpleural pulmonary nodule. Per Fleischner criteria, if patient is low risk,, CT in 18-24 months is optional. In unknown risk and high risk patients, CT at 6-[address] at 18-24 months. Assessment and Plan (1) Acute diverticulitis: Status: Acute Plan 58 year old male with history htn, hld, ed, type 2 diabetes, mood disorder, and history uncomplicated diverticulitis admitted for diverticulitis with possible microperforation #Acute diverticulitis -CT abd/pelvis shows acute diverticulitis with possible microperforation but no abscess -Mild leukocytosis 11.6. No sepsis -IV zosyn (initiated 02/27) -Keep NPO per general surgery (small sips clears with meds and ice chips ok) -Not surgical at this time, gen surgery will follow -Pain management with pain scale -Follow cbc, cultures #Newly diagnosed type 2 diabetes -A1c 6.6% -POC glucose -advance to diabetetic diet -Humalog on sliding scale, hold metformin (was being managed for prediabetes) #HTN -reasonably controlled -continue home meds #HLD -continue statin #Mood disorder -continue home meds DVT prophylaxis- heparin Full code Pt requires inpt stay at least 2 midnights for management of acute diverticulitis with possible microperforations requiring iv abx and close monitoring as well as expert consultation. Time Spent With Patient Time: Total time managing care of this patient today ____ minutes. Quality Stroke Does the patient have a stroke diagnosis?: No VTE Prior VTE?: No VTE Risk Level:: Medical - moderate - high VTE Device Contraindication: Treatment Not Indicated VTE Drug Contraindication: N/A - Med Ordered
[2023-02-27] MEDS: Heparin Sodium,Porcine 5,000 UNIT/ML VIAL 5000 UNIT SUBCUT (12:52)
[2023-02-27] MEDS: Acetaminophen 325 MG TABLET 650 MG PO ×2 (12:52→20:57)
[2023-02-27] MEDS: Morphine Sulfate 4 MG/ML CARTRIDGE 2 MG IVPUSH ×2 (14:03→19:41)
[2023-02-27 14:46] LABS: Glucose, Whole Blood 105 mg/dL (60-115)
[2023-02-27] MEDS: Piperacillin Sodium/Tazobactam 4.5 GM in 0.9 % Sodium Chloride 100 ML IV ×2 (15:03→20:58)
[2023-02-27] MEDS: 0.9 % Sodium Chloride Flush 3 ML SYRINGE IVFLUSH (15:03)
--- NOTE | 2023-02-27 16:12 | MHC.EDTECH ---
THIS PCT ASSUMED CARE OF PATIENT AT 1500 ,VITALS SIGN TAKEN ,PT HAS A BED ON MED SURGE WAITING TO GO UP .
[2023-02-27 16:44] LABS: Glucose, Whole Blood 107 mg/dL (60-115)
[2023-02-27] MEDS: 0.9 % Sodium Chloride 1,000 ML 100 ML IVCONT (20:00)
[2023-02-27 20:17] LABS: Glucose, Whole Blood 112 mg/dL (60-115)
[2023-02-27] MEDS: Losartan Potassium 50 MG TABLET PO (20:58)
[2023-02-27] MEDS: buPROPion HCl XL 300 MG TAB.ER.24H PO (20:58)
[2023-02-27] MEDS: hydroCHLOROthiazide 25 MG TABLET PO (20:58)
[2023-02-27] MEDS: oxyCODONE HCl Immed Release 5 MG TABLET PO (20:58)
[2023-02-27] MEDS: Atorvastatin Calcium 40 MG TABLET PO (20:58)
[2023-02-28] MEDS: Heparin Sodium,Porcine 5,000 UNIT/ML VIAL 5000 UNIT SUBCUT ×2 (00:43→12:37)
[2023-02-28] MEDS: LORazepam 1 MG TABLET 2 MG PO (00:47)
[2023-02-28] MEDS: Piperacillin Sodium/Tazobactam 4.5 GM in 0.9 % Sodium Chloride 100 ML IV ×4 (03:32→21:22)
[2023-02-28 04:00] VITALS: BP 94/57; PULSE 88; RESP 18; TEMP 36.9; O2SAT 94
[2023-02-28 05:48] LABS: MANUAL DIFF FLAG NO
[2023-02-28 05:57] LABS: Basophils Percent Auto 0.4 % (0-2); Eosinophils Absolute Auto 0.2 X10*3/uL (0.0-0.4); Eosinophils Percent Auto 2.2 % (0-4); Hematocrit 35.1 % (42.0-52.0); Hemoglobin 11.4 g/dl (14.0-18.0); Imm Gran Abs Auto 0.09 X10*3/uL (0.00-0.03); Imm Gran Pct Auto 1.2 % (0.0-0.4); Lymphocytes Absolute Auto 1.8 X10*3/uL (1.2-4.9); Lymphocytes Percent Auto 22.6 % (20-40); Mean Corpuscular HGB Conc 32.5 g/dl (31.0-36.0); Mean Corpuscular Volume 86.2 fL (80.0-98.0); Mean Platelet Volume 9.9 fL (9.4-12.4); Monocytes Absolute Auto 0.6 X10*3/uL (0.1-1.2); Monocytes Percent Auto 7.8 % (2-11); Neutrophils Absolute Auto 5.1 x10*3/uL (2.0-8.3); Neutrophils Percent Auto 65.8 % (45-73); Platelet Count 174 X10*3/uL (160-400); Red Blood Count 4.07 X10*6/uL (4.60-5.80); Red Cell Distribution Width 13.2 % (11.0-16.0); White Blood Count 7.7 X10*3/uL (4.8-10.8)
[2023-02-28 06:13] LABS: Anion Gap 15 (12-20); Blood Urea Nitrogen 24 mg/dL (9-16); Calcium 8.9 mg/dL (8.4-10.2); Carbon Dioxide 25 mmol/L (22-29); Chloride 103 mmol/L (96-108); Creatinine Clr Calc Pharmacy 72.8; Estimated Glomerular Filt Rate 57; Glucose Random 108 mg/dL (60-115); Potassium 3.8 mmol/L (3.3-5.1); Sodium 139 mmol/L (135-145)
[2023-02-28] MEDS: 0.9 % Sodium Chloride 1,000 ML 100 ML IVCONT ×2 (07:35→20:34)
[2023-02-28 07:42] VITALS: BP 111/71; PULSE 76; RESP 17; TEMP 36.2; O2SAT 97
[2023-02-28] MEDS: Morphine Sulfate 4 MG/ML CARTRIDGE 2 MG IVPUSH ×2 (07:43→12:36)
--- NOTE | 2023-02-28 07:47 | PM.PNGS ---
Subjective Subjective Date of Service: 02/28/23 Patient reports: no new complaints, feels better and still having pain Interval history: The patient was admitted overnight and placed on bowel rest. He reports that he is doing better but notes 5/10 pain. He denies any new complaints such as chest pain, difficulty breathing or shortness of breath. He is passing gas at but is not had a bowel movement. He denies any bloating, nausea or vomit Physical Exam Vital Signs: Vital Signs: Last Vital Signs Temp 97.2 F 02/28/23 07:42 Pulse 76 02/28/23 07:42 Resp 17 02/28/23 07:42 BP 111/71 02/28/23 07:42 Pulse Ox 97 02/28/23 07:42 O2 Del Method Room Air 02/28/23 07:42 BMI result Body Mass Index 37.5 On exam, he is nontoxic He is anicteric, he is in no acute respiratory distress His abdomen is obese and soft with slightly less left lower quadrant tenderness. The pain is local with no peritoneal irritation to percussion. Objective Data Active Medications Acetaminophen (Acetaminophen 325 Mg Tablet) 650 mg PO Q6H PRN PRN Reason: Pain, Mild (Pain Scale 1-3) Last Admin: 02/27/23 20:57 Dose: 650 mg Documented By: EDER Atorvastatin Calcium (Atorvastatin Calcium 40 Mg Tablet) 40 mg PO BEDTIME [facility] Last Admin: 02/27/23 20:58 Dose: 40 mg Documented By: EDER Bupropion HCl (Bupropion Hcl Xl 300 Mg Tab.Er.24h) 300 mg PO BEDTIME [facility] Last Admin: 02/27/23 20:58 Dose: 300 mg Documented By: EDER Dextrose (Dextrose 50 % 25 Gm/50 Ml Syringe) 25 gm IVPUSH Q15M PRN; Protocol PRN Reason: per Hypoglycemia Standing Ord. Diphenhydramine HCl (Diphenhydramine Hcl 25 Mg Capsule) 25 mg PO TID PRN PRN Reason: Itching Glucose (Glucose Gel 15 Gm Gel..Gram.) 15 gm PO Q15M PRN; Protocol PRN Reason: per Hypoglycemia Standing Ord. Heparin Sodium (Porcine) (Heparin Sodium,Porcine 5,000 Unit/Ml Vial) 5,000 unit SUBCUT Q12H [facility] Last Admin: 02/28/23 00:43 Dose: 5,000 unit Documented By: EDER Hydrochlorothiazide (Hydrochlorothiazide 25 Mg Tablet) 25 mg PO BEDTIME [facility] Last Admin: 02/27/23 20:58 Dose: 25 mg Documented By: EDER Piperacillin Sod/Tazobactam (Sod 4.5 gm/ Sodium Chloride) 100 mls @ 200 mls/hr IV Q6H [facility] Last Infusion: 02/28/23 04:08 Dose: 0 mls/hr Documented By: EDER Sodium Chloride (Ns) 1,000 mls @ 100 mls/hr IVCONT .Q10H [facility] Last Admin: 02/28/23 07:35 Dose: 100 mls/hr Documented By: JAYDON Insulin Human Lispro (Insulin Lispro 100 Unit/Ml 3 Ml Vial) 0 unit SUBCUT QIDACHS [facility]; Protocol Last Admin: 02/28/23 07:46 Dose: Not Given Documented By: JAYDON Non-Admin Reason: No Insulin Coverage Lorazepam (Lorazepam 1 Mg Tablet) 2 mg PO BID@2000,0100 PRN PRN Reason: Sleep Last Admin: 02/28/23 00:47 Dose: 2 mg Documented By: EDER Losartan Potassium (Losartan Potassium 50 Mg Tablet) 50 mg PO BEDTIME [facility]; Protocol Last Admin: 02/27/23 20:58 Dose: 50 mg Documented By: EDER Morphine Sulfate (Morphine Sulfate 4 Mg/Ml Cartridge) 2 mg IVPUSH Q4H PRN; Protocol PRN Reason: Pain, Severe (Pain Scale 7-10) Last Admin: 02/28/23 07:43 Dose: 2 mg Documented By: JAYDON Ondansetron HCl (Ondansetron Hcl 4 Mg/2 Ml Vial) 4 mg IVPUSH Q8H PRN PRN Reason: Nausea and Vomiting Last Admin: 02/27/23 14:03 Dose: 4 mg Documented By: CAROL ANN Oxycodone HCl (Oxycodone Hcl Immed Release 5 Mg Tablet) 5 mg PO Q6H PRN PRN Reason: Pain, Moderate(Pain Scale 4-6) Last Admin: 02/27/23 20:58 Dose: 5 mg Documented By: EDER Sodium Chloride (0.9 % Sodium Chloride Flush 3 Ml Syringe) 3 ml IVFLUSH QSHIFT [facility] Last Admin: 02/28/23 07:32 Dose: Not Given Documented By: JAYDON Non-Admin Reason: IV Running Labs 02/28/23 05:02 02/28/23 05:02 Labs: Laboratory Results - last 24 hr 02/27/23 02/27/23 02/27/23 06:19 09:09 14:41 MCV MCH MCHC RDW Plt Count MPV Immature Gran % (Auto) Neut % (Auto) Lymph % (Auto) [place] % (Auto) Eos % (Auto) Baso % (Auto) Lymph # (Auto) [place] # (Auto) Eos # (Auto) Baso # (Auto) Abs Immat Gran (auto) Absolute Neuts (auto) Absolute Nucleated RBC Nucleated RBC % (auto) Anion Gap Estim Creat Clear Calc Estimated GFR POC Glucose 105 Random Glucose Estimat Average Glucose 143 Hemoglobin A1c % 6.6 Lactic Acid 1.6 Calcium 02/27/23 02/27/23 02/28/23 16:41 20:07 05:02 MCV 86.2 MCH 28.0 MCHC 32.5 RDW 13.2 Plt Count 174 MPV 9.9 Immature Gran % (Auto) 1.2 H Neut % (Auto) 65.8 Lymph % (Auto) 22.6 [place] % (Auto) 7.8 Eos % (Auto) 2.2 Baso % (Auto) 0.4 Lymph # (Auto) 1.8 [place] # (Auto) 0.6 Eos # (Auto) 0.2 Baso # (Auto) 0.0 Abs Immat Gran (auto) 0.09 H Absolute Neuts (auto) 5.1 Absolute Nucleated RBC 0.000 Nucleated RBC % (auto) 0.0 Anion Gap Estim Creat Clear Calc Estimated GFR POC Glucose 107 112 Random Glucose Estimat Average Glucose Hemoglobin A1c % Lactic Acid Calcium 02/28/23 05:02 MCV MCH MCHC RDW Plt Count MPV Immature Gran % (Auto) Neut % (Auto) Lymph % (Auto) [place] % (Auto) Eos % (Auto) Baso % (Auto) Lymph # (Auto) [place] # (Auto) Eos # (Auto) Baso # (Auto) Abs Immat Gran (auto) Absolute Neuts (auto) Absolute Nucleated RBC Nucleated RBC % (auto) Anion Gap 15 Estim Creat Clear Calc 72.8 Estimated GFR 57 POC Glucose Random Glucose 108 Estimat Average Glucose Hemoglobin A1c % Lactic Acid Calcium 8.9 D Procedures Date of Service Date of Service: 02/28/23 Progress Note: A&P Assessment and plan (1) Acute diverticulitis: Status: Acute (2) Obesity due to excess calories with serious comorbidity: Status: Acute (3) HTN (hypertension): Status: Acute (4) HLD (hyperlipidemia): Status: Acute (5) Dehydration: Status: Acute Plan While the patient reports interval improvement, he still reports pain, so I would continue NPO except for sips of water and ice chips and reassess him in 24 hours. Please contact if there are questions or significant changes in the patient. I also reviewed with him that following discharge she will need a new colonoscopy since his last 1 is several years old and confirming the diagnosis and excluding malignancy is required. Will continue to follow. Time Spent With Patient Time: Total time managing care of this patient today ____ minutes. Quality Stroke Does the patient have a stroke diagnosis?: No VTE Prior VTE?: No VTE Risk Level:: Medical - moderate - high VTE Device Contraindication: Treatment Not Indicated VTE Drug Contraindication: N/A - Med Ordered
[2023-02-28 08:01] LABS: Glucose, Whole Blood 114 mg/dL (60-115)
[2023-02-28] MEDS: Acetaminophen 325 MG TABLET 650 MG PO ×2 (10:35→18:14)
--- NOTE | 2023-02-28 11:19 | MHC.CM.PN ---
pt will be dcd home no servceis
[2023-02-28 11:40] LABS: Glucose, Whole Blood 100 mg/dL (60-115)
--- NOTE | 2023-02-28 13:34 | HO.PM.IMPN ---
Subjective Subjective Date of Service: 02/28/23 Interval History: abd pain Review of Systems Abdominal pain somewhat better still has tenderness. No nausea or vomiting No fever Physical Exam Vital Signs: Vital Signs: Last Vital Signs Temp 97.2 F 02/28/23 07:42 Pulse 76 02/28/23 07:42 Resp 17 02/28/23 07:42 BP 111/71 02/28/23 07:42 Pulse Ox 97 02/28/23 07:42 O2 Del Method Room Air 02/28/23 07:42 BMI result Body Mass Index 37.5 Appearance: Alert.? Oriented X3.? not in distress. cvs: rrr, [id number] , no murmur res: clear to auscultation ,no rhonchii or wheezing abd: no rebound or guarding ,still LLQ tender somewhat improvin, bs present. ext pulses present , no cyanosis. neuro: axo3 , nonfocal. Objective Data Active Medications Acetaminophen (Acetaminophen 325 Mg Tablet) 650 mg PO Q6H PRN PRN Reason: Pain, Mild (Pain Scale 1-3) Last Admin: 02/28/23 10:35 Dose: 650 mg Documented By: JAYDON Atorvastatin Calcium (Atorvastatin Calcium 40 Mg Tablet) 40 mg PO BEDTIME [facility] Last Admin: 02/27/23 20:58 Dose: 40 mg Documented By: EDER Bupropion HCl (Bupropion Hcl Xl 300 Mg Tab.Er.24h) 300 mg PO BEDTIME [facility] Last Admin: 02/27/23 20:58 Dose: 300 mg Documented By: EDER Dextrose (Dextrose 50 % 25 Gm/50 Ml Syringe) 25 gm IVPUSH Q15M PRN; Protocol PRN Reason: per Hypoglycemia Standing Ord. Diphenhydramine HCl (Diphenhydramine Hcl 25 Mg Capsule) 25 mg PO TID PRN PRN Reason: Itching Glucose (Glucose Gel 15 Gm Gel..Gram.) 15 gm PO Q15M PRN; Protocol PRN Reason: per Hypoglycemia Standing Ord. Heparin Sodium (Porcine) (Heparin Sodium,Porcine 5,000 Unit/Ml Vial) 5,000 unit SUBCUT Q12H [facility] Last Admin: 02/28/23 12:37 Dose: 5,000 unit Documented By: JAYDON Hydrochlorothiazide (Hydrochlorothiazide 25 Mg Tablet) 25 mg PO BEDTIME [facility] Last Admin: 02/27/23 20:58 Dose: 25 mg Documented By: EDER Piperacillin Sod/Tazobactam (Sod 4.5 gm/ Sodium Chloride) 100 mls @ 200 mls/hr IV Q6H [facility] Last Infusion: 02/28/23 10:19 Dose: 0 mls/hr Documented By: JAYDON Sodium Chloride (Ns) 1,000 mls @ 100 mls/hr IVCONT .Q10H [facility] Last Admin: 02/28/23 07:35 Dose: 100 mls/hr Documented By: JAYDON Insulin Human Lispro (Insulin Lispro 100 Unit/Ml 3 Ml Vial) 0 unit SUBCUT QIDACHS [facility]; Protocol Last Admin: 02/28/23 11:54 Dose: Not Given Documented By: JAYDON Non-Admin Reason: No Insulin Coverage Lorazepam (Lorazepam 1 Mg Tablet) 2 mg PO BID@2000,0100 PRN PRN Reason: Sleep Last Admin: 02/28/23 00:47 Dose: 2 mg Documented By: EDER Losartan Potassium (Losartan Potassium 50 Mg Tablet) 50 mg PO BEDTIME [facility]; Protocol Last Admin: 02/27/23 20:58 Dose: 50 mg Documented By: EDER Morphine Sulfate (Morphine Sulfate 4 Mg/Ml Cartridge) 2 mg IVPUSH Q4H PRN; Protocol PRN Reason: Pain, Severe (Pain Scale 7-10) Last Admin: 02/28/23 12:36 Dose: 2 mg Documented By: JAYDON Ondansetron HCl (Ondansetron Hcl 4 Mg/2 Ml Vial) 4 mg IVPUSH Q8H PRN PRN Reason: Nausea and Vomiting Last Admin: 02/27/23 14:03 Dose: 4 mg Documented By: CAROL ANN Oxycodone HCl (Oxycodone Hcl Immed Release 5 Mg Tablet) 5 mg PO Q6H PRN PRN Reason: Pain, Moderate(Pain Scale 4-6) Last Admin: 02/27/23 20:58 Dose: 5 mg Documented By: EDER Sodium Chloride (0.9 % Sodium Chloride Flush 3 Ml Syringe) 3 ml IVFLUSH QSHIFT [facility] Last Admin: 02/28/23 07:32 Dose: Not Given Documented By: JAYDON Non-Admin Reason: IV Running Labs 02/28/23 05:02 02/28/23 05:02 Labs: Laboratory Results - last 24 hr 02/27/23 02/27/23 02/27/23 14:41 16:41 20:07 MCV MCH MCHC RDW Plt Count MPV Immature Gran % (Auto) Neut % (Auto) Lymph % (Auto) [place] % (Auto) Eos % (Auto) Baso % (Auto) Lymph # (Auto) [place] # (Auto) Eos # (Auto) Baso # (Auto) Abs Immat Gran (auto) Absolute Neuts (auto) Absolute Nucleated RBC Nucleated RBC % (auto) Anion Gap Estim Creat Clear Calc Estimated GFR POC Glucose 105 107 112 Random Glucose Calcium 02/28/23 02/28/23 02/28/23 05:02 05:02 07:42 MCV 86.2 MCH 28.0 MCHC 32.5 RDW 13.2 Plt Count 174 MPV 9.9 Immature Gran % (Auto) 1.2 H Neut % (Auto) 65.8 Lymph % (Auto) 22.6 [place] % (Auto) 7.8 Eos % (Auto) 2.2 Baso % (Auto) 0.4 Lymph # (Auto) 1.8 [place] # (Auto) 0.6 Eos # (Auto) 0.2 Baso # (Auto) 0.0 Abs Immat Gran (auto) 0.09 H Absolute Neuts (auto) 5.1 Absolute Nucleated RBC 0.000 Nucleated RBC % (auto) 0.0 Anion Gap 15 Estim Creat Clear Calc 72.8 Estimated GFR 57 POC Glucose 114 Random Glucose 108 Calcium 8.9 D 02/28/23 11:27 MCV MCH MCHC RDW Plt Count MPV Immature Gran % (Auto) Neut % (Auto) Lymph % (Auto) [place] % (Auto) Eos % (Auto) Baso % (Auto) Lymph # (Auto) [place] # (Auto) Eos # (Auto) Baso # (Auto) Abs Immat Gran (auto) Absolute Neuts (auto) Absolute Nucleated RBC Nucleated RBC % (auto) Anion Gap Estim Creat Clear Calc Estimated GFR POC Glucose 100 Random Glucose Calcium Microbiology Microbiology Results: Microbiology 02/27/23 09:09 Blood Culture - Preliminary Blood - Venous No growth after 24 hours. 02/27/23 09:09 Blood Culture - Preliminary Blood - Venous No growth after 24 hours. 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 No sepsis Follow cultures Keep NPO per general surgery (small sips clears with meds and ice chips ok),IV zosyn (initiated 02/27),Pain management with pain scale Not surgical at this time, gen surgery -continue above mangement. Newly diagnosed type 2 diabetes -A1c 6.6% -POC glucose -advance to diabetetic diet -Humalog on sliding scale, hold metformin (was being managed for prediabetes) HTN-reasonably controlled -continue home meds HLD -continue statin Mood disorder -continue home meds Ct abd Incidental findin mm right lower lobe subpleural pulmonary nodule. Per Fleischner criteria, if patient is low risk,, CT in 18-24 months is optional. In unknown risk and high risk patients, CT at 6-[address] at 18-24 months. DVT prophylaxis- heparin Full code [facility] need:Acute diverticulitis-need iv antibiotics ,still did not able to take diet ,blood cultures pending Time Spent With Patient Time: Total time managing care of this patient today ____ minutes. Quality Stroke Does the patient have a stroke diagnosis?: No VTE Prior VTE?: No VTE Risk Level:: Medical - moderate - high VTE Device Contraindication: Treatment Not Indicated VTE Drug Contraindication: N/A - Med Ordered
[2023-02-28 15:42] VITALS: BP 134/74; PULSE 73; RESP 20; TEMP 36.3; O2SAT 97
[2023-02-28 16:18] LABS: Glucose, Whole Blood 88 mg/dL (60-115)
[2023-02-28] MEDS: ondansetron HCL 4 MG/2 ML VIAL IVPUSH (17:00)
[2023-02-28 19:32] VITALS: BP 118/69; PULSE 67; RESP 20; TEMP 36.5; O2SAT 96
[2023-02-28 20:14] LABS: Glucose, Whole Blood 90 mg/dL (60-115)
[2023-02-28] MEDS: Atorvastatin Calcium 40 MG TABLET PO (21:22)
[2023-02-28] MEDS: buPROPion HCl XL 300 MG TAB.ER.24H PO (21:22)
[2023-02-28] MEDS: Losartan Potassium 50 MG TABLET PO (21:22)
[2023-03-01] MEDS: Heparin Sodium,Porcine 5,000 UNIT/ML VIAL 5000 UNIT SUBCUT ×3 (00:42→22:19)
[2023-03-01] MEDS: oxyCODONE HCl Immed Release 5 MG TABLET PO (00:42)
[2023-03-01 03:45] VITALS: BP 142/80; PULSE 83; RESP 16; TEMP 36.9; O2SAT 96
[2023-03-01] MEDS: Piperacillin Sodium/Tazobactam 4.5 GM in 0.9 % Sodium Chloride 100 ML IV ×4 (03:45→22:20)
[2023-03-01] MEDS: Acetaminophen 325 MG TABLET 650 MG PO ×2 (03:56→14:22)
[2023-03-01 07:27] VITALS: BP 128/80; PULSE 78; RESP 18; TEMP 36.2; O2SAT 97
[2023-03-01] MEDS: ondansetron HCL 4 MG/2 ML VIAL IVPUSH (07:34)
--- NOTE | 2023-03-01 07:38 | PM.PNGS ---
Subjective Subjective Date of Service: 03/01/23 Patient reports: no new complaints, feels better, pain is less, flatus and bowel movement Interval history: The patient reports that he is improved since his evaluation yesterday. There is some residual left lower quadrant discomfort but no severe pain; he reports that he is passing gas and had a bowel movement. He otherwise denies new complaints of chest pain, difficulty breathing, shortness of breath or localizing neurologic symptoms. He is hopeful to have clear liquids today. Physical Exam Vital Signs: Vital Signs: Last Vital Signs Temp 97.2 F 03/01/23 07:27 Pulse 78 03/01/23 07:27 Resp 18 03/01/23 07:27 BP 128/80 03/01/23 07:27 Pulse Ox 97 03/01/23 07:27 O2 Del Method Room Air 03/01/23 07:27 BMI result Body Mass Index 37.5 On exam he is nontoxic and in surprisingly good spirits His sclera remain anicteric He is in no acute respiratory distress His abdomen remains obese and soft with last left lower quadrant tenderness and no peritoneal signs. There is no diffuse abdominal tenderness and is exam is improved from yesterday Objective Data Active Medications Acetaminophen (Acetaminophen 325 Mg Tablet) 650 mg PO Q6H PRN PRN Reason: Pain, Mild (Pain Scale 1-3) Last Admin: 03/01/23 03:56 Dose: 650 mg Documented By: EDER Atorvastatin Calcium (Atorvastatin Calcium 40 Mg Tablet) 40 mg PO BEDTIME [facility] Last Admin: 02/28/23 21:22 Dose: 40 mg Documented By: EDER Bupropion HCl (Bupropion Hcl Xl 300 Mg Tab.Er.24h) 300 mg PO BEDTIME [facility] Last Admin: 02/28/23 21:22 Dose: 300 mg Documented By: EDER Dextrose (Dextrose 50 % 25 Gm/50 Ml Syringe) 25 gm IVPUSH Q15M PRN; Protocol PRN Reason: per Hypoglycemia Standing Ord. Diphenhydramine HCl (Diphenhydramine Hcl 25 Mg Capsule) 25 mg PO TID PRN PRN Reason: Itching Glucose (Glucose Gel 15 Gm Gel..Gram.) 15 gm PO Q15M PRN; Protocol PRN Reason: per Hypoglycemia Standing Ord. Heparin Sodium (Porcine) (Heparin Sodium,Porcine 5,000 Unit/Ml Vial) 5,000 unit SUBCUT Q12H [facility] Last Admin: 03/01/23 00:42 Dose: 5,000 unit Documented By: EDER Hydrochlorothiazide (Hydrochlorothiazide 25 Mg Tablet) 25 mg PO BEDTIME [facility] Last Admin: 02/28/23 21:23 Dose: Not Given Documented By: EDER Non-Admin Reason: Decreased Blood Pressure Piperacillin Sod/Tazobactam (Sod 4.5 gm/ Sodium Chloride) 100 mls @ 200 mls/hr IV Q6H [facility] Last Infusion: 03/01/23 04:26 Dose: 0 mls/hr Documented By: EDER Sodium Chloride (Ns) 1,000 mls @ 100 mls/hr IVCONT .Q10H [facility] Last Infusion: 03/01/23 04:26 Dose: 100 mls/hr Documented By: EDER Insulin Human Lispro (Insulin Lispro 100 Unit/Ml 3 Ml Vial) 0 unit SUBCUT QIDACHS [facility]; Protocol Last Admin: 03/01/23 07:28 Dose: Not Given Documented By: JADYON Non-Admin Reason: No Insulin Coverage Lorazepam (Lorazepam 1 Mg Tablet) 2 mg PO BID@2000,0100 PRN PRN Reason: Sleep Last Admin: 02/28/23 00:47 Dose: 2 mg Documented By: EDER Losartan Potassium (Losartan Potassium 50 Mg Tablet) 50 mg PO BEDTIME [facility]; Protocol Last Admin: 02/28/23 21:22 Dose: 50 mg Documented By: EDER Morphine Sulfate (Morphine Sulfate 4 Mg/Ml Cartridge) 2 mg IVPUSH Q4H PRN; Protocol PRN Reason: Pain, Severe (Pain Scale 7-10) Last Admin: 02/28/23 12:36 Dose: 2 mg Documented By: JAYDON Ondansetron HCl (Ondansetron Hcl 4 Mg/2 Ml Vial) 4 mg IVPUSH Q8H PRN PRN Reason: Nausea and Vomiting Last Admin: 03/01/23 07:34 Dose: 4 mg Documented By: JAYDON Oxycodone HCl (Oxycodone Hcl Immed Release 5 Mg Tablet) 5 mg PO Q6H PRN PRN Reason: Pain, Moderate(Pain Scale 4-6) Last Admin: 03/01/23 00:42 Dose: 5 mg Documented By: EDER Sodium Chloride (0.9 % Sodium Chloride Flush 3 Ml Syringe) 3 ml IVFLUSH QSHIFT [facility] Last Admin: 03/01/23 06:56 Dose: Not Given Documented By: JAYDON Non-Admin Reason: IV Running Labs 02/28/23 05:02 02/28/23 05:02 Labs: Laboratory Results - last 24 hr 02/28/23 02/28/23 02/28/23 07:42 11:27 16:00 POC Glucose 114 100 88 02/28/23 19:59 POC Glucose 90 Microbiology Microbiology Results: Microbiology 02/27/23 09:09 Blood Culture - Preliminary Blood - Venous No growth after 24 hours. 02/27/23 09:09 Blood Culture - Preliminary Blood - Venous No growth after 24 hours. Procedures Date of Service Date of Service: 03/01/23 Progress Note: A&P Assessment and plan (1) Acute diverticulitis: Status: Acute (2) Obesity due to excess calories with serious comorbidity: Status: Acute (3) Dehydration: Status: Acute (4) HLD (hyperlipidemia): Status: Acute (5) HTN (hypertension): Status: Acute Plan start clears as ordered earlier today The importance of a repeat colonoscopy to confirm the diagnosis of diverticulosis/itis and exclude malignancy was again discussed. Options of aggressive discharge later today if he is tolerating note liquids was discussed; given the presenting pain and symptoms, I would be recommended to advance his diet slowly and reconsider discharge tomorrow. The patient agrees with this plan. Time Spent With Patient Time: Total time managing care of this patient today ____ minutes. Quality Stroke Does the patient have a stroke diagnosis?: No VTE Prior VTE?: No VTE Risk Level:: Medical - moderate - high VTE Device Contraindication: Treatment Not Indicated VTE Drug Contraindication: N/A - Med Ordered
[2023-03-01 07:52] LABS: Glucose, Whole Blood 86 mg/dL (60-115)
--- NOTE | 2023-03-01 11:21 | HO.PM.IMPN ---
Subjective Subjective Date of Service: 03/01/23 Interval History: improving, interested in clears today Physical Exam Vital Signs: Vital Signs: Last Vital Signs Temp 97.2 F 03/01/23 07:27 Pulse 78 03/01/23 07:27 Resp 18 03/01/23 07:27 BP 128/80 03/01/23 07:27 Pulse Ox 97 03/01/23 07:27 O2 Del Method Room Air 03/01/23 07:27 BMI result Body Mass Index 37.5 On exam he is nontoxic and in surprisingly good spirits His sclera remain anicteric He is in no acute respiratory distress His abdomen remains obese and soft with last left lower quadrant tenderness and no peritoneal signs. There is no diffuse abdominal tenderness and is exam is improved from yesterday Objective Data Active Medications Acetaminophen (Acetaminophen 325 Mg Tablet) 650 mg PO Q6H PRN PRN Reason: Pain, Mild (Pain Scale 1-3) Last Admin: 03/01/23 03:56 Dose: 650 mg Documented By: EDER Atorvastatin Calcium (Atorvastatin Calcium 40 Mg Tablet) 40 mg PO BEDTIME [facility]ST[facility] Last Admin: 02/28/23 21:22 Dose: 40 mg Documented By: EDER Bupropion HCl (Bupropion Hcl Xl 300 Mg Tab.Er.24h) 300 mg PO BEDTIME ERASTO Last Admin: 02/28/23 21:22 Dose: 300 mg Documented By: EDER Dextrose (Dextrose 50 % 25 Gm/50 Ml Syringe) 25 gm IVPUSH Q15M PRN; Protocol PRN Reason: per Hypoglycemia Standing Ord. Diphenhydramine HCl (Diphenhydramine Hcl 25 Mg Capsule) 25 mg PO TID PRN PRN Reason: Itching Glucose (Glucose Gel 15 Gm Gel..Gram.) 15 gm PO Q15M PRN; Protocol PRN Reason: per Hypoglycemia Standing Ord. Heparin Sodium (Porcine) (Heparin Sodium,Porcine 5,000 Unit/Ml Vial) 5,000 unit SUBCUT Q12H [facility] Last Admin: 03/01/23 00:42 Dose: 5,000 unit Documented By: EDER Hydrochlorothiazide (Hydrochlorothiazide 25 Mg Tablet) 25 mg PO BEDTIME [facility] Last Admin: 02/28/23 21:23 Dose: Not Given Documented By: EDER Non-Admin Reason: Decreased Blood Pressure Piperacillin Sod/Tazobactam (Sod 4.5 gm/ Sodium Chloride) 100 mls @ 200 mls/hr IV Q6H [facility] Last Infusion: 03/01/23 10:40 Dose: 0 mls/hr Documented By: JAYDON Sodium Chloride (Ns) 1,000 mls @ 100 mls/hr IVCONT .Q10H [facility] Last Infusion: 03/01/23 10:39 Dose: 0 mls/hr Documented By: JAYDON Insulin Human Lispro (Insulin Lispro 100 Unit/Ml 3 Ml Vial) 0 unit SUBCUT QIDACHS [facility]; Protocol Last Admin: 03/01/23 07:28 Dose: Not Given Documented By: JAYDON Non-Admin Reason: No Insulin Coverage Lorazepam (Lorazepam 1 Mg Tablet) 2 mg PO BID@2000,0100 PRN PRN Reason: Sleep Last Admin: 02/28/23 00:47 Dose: 2 mg Documented By: EDER Losartan Potassium (Losartan Potassium 50 Mg Tablet) 50 mg PO BEDTIME [facility]; Protocol Last Admin: 02/28/23 21:22 Dose: 50 mg Documented By: EDER Morphine Sulfate (Morphine Sulfate 4 Mg/Ml Cartridge) 2 mg IVPUSH Q4H PRN; Protocol PRN Reason: Pain, Severe (Pain Scale 7-10) Last Admin: 02/28/23 12:36 Dose: 2 mg Documented By: JAYDON Ondansetron HCl (Ondansetron Hcl 4 Mg/2 Ml Vial) 4 mg IVPUSH Q8H PRN PRN Reason: Nausea and Vomiting Last Admin: 03/01/23 07:34 Dose: 4 mg Documented By: JAYDON Oxycodone HCl (Oxycodone Hcl Immed Release 5 Mg Tablet) 5 mg PO Q6H PRN PRN Reason: Pain, Moderate(Pain Scale 4-6) Last Admin: 03/01/23 00:42 Dose: 5 mg Documented By: EDER Sodium Chloride (0.9 % Sodium Chloride Flush 3 Ml Syringe) 3 ml IVFLUSH QSHIFT [facility] Last Admin: 03/01/23 06:56 Dose: Not Given Documented By: JAYDON Non-Admin Reason: IV Running Labs 02/28/23 05:02 02/28/23 05:02 Labs: Laboratory Results - last 24 hr 02/28/23 02/28/23 02/28/23 11:27 16:00 19:59 POC Glucose 100 88 90 03/01/23 07:27 POC Glucose 86 Microbiology Microbiology Results: Microbiology 02/27/23 09:09 Blood Culture - Preliminary Blood - Venous No growth after 48 hours. 02/27/23 09:09 Blood Culture - Preliminary Blood - Venous No growth after 48 hours. Assessment and Plan (1) Acute diverticulitis: Status: Acute (2) Obesity due to excess calories with serious comorbidity: Status: Acute Assessment and Plan: 58 year old male with history htn, hld, ed, type 2 diabetes, mood disorder, and history uncomplicated diverticulitis admitted with abd pain, found to have diverticulitis with possible microperforation Acute diverticulitis CT abd/pelvis shows acute diverticulitis with possible microperforation but no abscess zosyn, advancing to clears gen surgery following - no indication for surgery at this time Newly diagnosed type 2 diabetes -A1c 6.6% -POC glucose -advance to diabetetic diet -Humalog on sliding scale, hold metformin (was being managed for prediabetes) HTN-reasonably controlled -continue losartan HLD -continue statin Mood disorder -continue wellbutrin Ct abd Incidental findin mm right lower lobe subpleural pulmonary nodule. Per Fleischner criteria, if patient is low risk,, CT in 18-24 months is optional. In unknown risk and high risk patients, CT at 6-[address] at 18-24 months. DVT prophylaxis- heparin Full code reason for continued hospitalization:awaiting tolerance of po Time Spent With Patient Time: Total time managing care of this patient today ____ minutes. Quality Stroke Does the patient have a stroke diagnosis?: No VTE Prior VTE?: No VTE Risk Level:: Medical - moderate - high VTE Device Contraindication: Treatment Not Indicated VTE Drug Contraindication: N/A - Med Ordered
[2023-03-01 11:40] LABS: Glucose, Whole Blood 101 mg/dL (60-115)
[2023-03-01 15:26] VITALS: BP 142/80; PULSE 67; RESP 20; TEMP 36.3; O2SAT 98
[2023-03-01 16:22] LABS: Glucose, Whole Blood 114 mg/dL (60-115)
[2023-03-01 20:00] VITALS: BP 132/69; PULSE 78; RESP 20; TEMP 36.3; O2SAT 98
[2023-03-01 20:51] LABS: Glucose, Whole Blood 127 mg/dL (60-115)
[2023-03-01] MEDS: LORazepam 1 MG TABLET 2 MG PO (22:19)
[2023-03-01] MEDS: buPROPion HCl XL 300 MG TAB.ER.24H PO (22:19)
[2023-03-01] MEDS: Losartan Potassium 50 MG TABLET PO (22:19)
[2023-03-01] MEDS: Atorvastatin Calcium 40 MG TABLET PO (22:19)
[2023-03-01] MEDS: hydroCHLOROthiazide 25 MG TABLET PO (22:19)
[2023-03-01] MEDS: 0.9 % Sodium Chloride Flush 3 ML SYRINGE IVFLUSH (22:21)
[2023-03-02] MEDS: Piperacillin Sodium/Tazobactam 4.5 GM in 0.9 % Sodium Chloride 100 ML IV ×2 (03:39→09:39)
[2023-03-02 03:45] VITALS: BP 125/85; PULSE 80; RESP 20; TEMP 36.3; O2SAT 95
[2023-03-02 04:00] VITALS: RESP 18
[2023-03-02 05:45] LABS: Hematocrit 37.8 % (42.0-52.0); Hemoglobin 12.8 g/dl (14.0-18.0); Mean Corpuscular HGB Conc 33.9 g/dl (31.0-36.0); Mean Corpuscular Hemoglobin 28.4 pg (27.0-33.0); Mean Platelet Volume 10.1 fL (9.4-12.4); Platelet Count 206 X10*3/uL (160-400); Red Cell Distribution Width 12.8 % (11.0-16.0); White Blood Count 6.9 X10*3/uL (4.8-10.8)
[2023-03-02 06:02] LABS: Anion Gap 15 (12-20); Blood Urea Nitrogen 18 mg/dL (9-16); Carbon Dioxide 26 mmol/L (22-29); Chloride 102 mmol/L (96-108); Creatinine Clr Calc Pharmacy 76.3; Estimated Glomerular Filt Rate 60; Glucose Fasting 122 mg/dL (60-99); Potassium 3.7 mmol/L (3.3-5.1); Sodium 139 mmol/L (135-145)
--- NOTE | 2023-03-02 07:05 | PM.PNGS ---
Subjective Subjective Date of Service: 03/02/23 Patient reports: no new complaints, feels better and tolerating a regular diet Interval history: The patient is tolerating his advanced diet and having no other symptoms such as chest pain, difficulty breathing, shortness of breath. His abdominal pain is completely resolved and he is passing gas and moving his bowels. Physical Exam Vital Signs: Vital Signs: Last Vital Signs Temp 97.3 F 03/02/23 03:45 Pulse 80 03/02/23 03:45 Resp 18 03/02/23 04:00 BP 125/85 03/02/23 03:45 Pulse Ox 95 03/02/23 03:45 O2 Del Method Room Air 03/02/23 03:45 BMI result Body Mass Index 37.5 On exam, he is nontoxic He is in good spirits He is anicteric He is in no acute respiratory distress His abdomen remains obese and is soft with no tenderness. No peritoneal sign is pressed Objective Data Active Medications Acetaminophen (Acetaminophen 325 Mg Tablet) 650 mg PO Q6H PRN PRN Reason: Pain, Mild (Pain Scale 1-3) Last Admin: 03/01/23 14:22 Dose: 650 mg Documented By: JAYDON Atorvastatin Calcium (Atorvastatin Calcium 40 Mg Tablet) 40 mg PO BEDTIME [facility] Last Admin: 03/01/23 22:19 Dose: 40 mg Documented By: EDER Bupropion HCl (Bupropion Hcl Xl 300 Mg Tab.Er.24h) 300 mg PO BEDTIME [facility] Last Admin: 03/01/23 22:19 Dose: 300 mg Documented By: EDER Dextrose (Dextrose 50 % 25 Gm/50 Ml Syringe) 25 gm IVPUSH Q15M PRN; Protocol PRN Reason: per Hypoglycemia Standing Ord. Diphenhydramine HCl (Diphenhydramine Hcl 25 Mg Capsule) 25 mg PO TID PRN PRN Reason: Itching Glucose (Glucose Gel 15 Gm Gel..Gram.) 15 gm PO Q15M PRN; Protocol PRN Reason: per Hypoglycemia Standing Ord. Heparin Sodium (Porcine) (Heparin Sodium,Porcine 5,000 Unit/Ml Vial) 5,000 unit SUBCUT Q12H [facility] Last Admin: 03/01/23 22:19 Dose: 5,000 unit Documented By: EDER Hydrochlorothiazide (Hydrochlorothiazide 25 Mg Tablet) 25 mg PO BEDTIME [facility] Last Admin: 03/01/23 22:19 Dose: 25 mg Documented By: EDER Piperacillin Sod/Tazobactam (Sod 4.5 gm/ Sodium Chloride) 100 mls @ 200 mls/hr IV Q6H [facility] Last Infusion: 03/02/23 04:09 Dose: 0 mls/hr Documented By: EDER Insulin Human Lispro (Insulin Lispro 100 Unit/Ml 3 Ml Vial) 0 unit SUBCUT QIDACHS [facility]; Protocol Last Admin: 03/01/23 20:52 Dose: Not Given Documented By: EDER Non-Admin Reason: No Insulin Coverage Lorazepam (Lorazepam 1 Mg Tablet) 2 mg PO BID@2000,0100 PRN PRN Reason: Sleep Last Admin: 03/01/23 22:19 Dose: 2 mg Documented By: EDER Losartan Potassium (Losartan Potassium 50 Mg Tablet) 50 mg PO BEDTIME [facility]; Protocol Last Admin: 03/01/23 22:19 Dose: 50 mg Documented By: EDER Morphine Sulfate (Morphine Sulfate 4 Mg/Ml Cartridge) 2 mg IVPUSH Q4H PRN; Protocol PRN Reason: Pain, Severe (Pain Scale 7-10) Last Admin: 02/28/23 12:36 Dose: 2 mg Documented By: JAYDON Ondansetron HCl (Ondansetron Hcl 4 Mg/2 Ml Vial) 4 mg IVPUSH Q8H PRN PRN Reason: Nausea and Vomiting Last Admin: 03/01/23 07:34 Dose: 4 mg Documented By: JAYDON Oxycodone HCl (Oxycodone Hcl Immed Release 5 Mg Tablet) 5 mg PO Q6H PRN PRN Reason: Pain, Moderate(Pain Scale 4-6) Last Admin: 03/01/23 00:42 Dose: 5 mg Documented By: EDER Sodium Chloride (0.9 % Sodium Chloride Flush 3 Ml Syringe) [facility] Last Admin: 03/01/23 22:21 Dose: 3 ml Documented By: EDER Labs 03/02/23 05:06 03/02/23 05:06 Labs: Laboratory Results - last 24 hr 03/01/23 03/01/23 03/01/23 07:27 11:32 16:14 MCV MCH MCHC RDW Plt Count MPV Absolute Nucleated RBC Nucleated RBC % (auto) Anion Gap Estim Creat Clear Calc Estimated GFR POC Glucose 86 101 114 Fasting Glucose Calcium 03/01/23 03/02/23 03/02/23 20:37 05:06 05:06 MCV 84.0 MCH 28.4 MCHC 33.9 RDW 12.8 Plt Count 206 MPV 10.1 Absolute Nucleated RBC 0.000 Nucleated RBC % (auto) 0.0 Anion Gap 15 Estim Creat Clear Calc 76.3 Estimated GFR 60 POC Glucose 127 H Fasting Glucose 122 H Calcium 10.0 D Microbiology Microbiology Results: Microbiology 02/27/23 09:09 Blood Culture - Preliminary Blood - Venous No growth after 48 hours. 02/27/23 09:09 Blood Culture - Preliminary Blood - Venous No growth after 48 hours. Procedures Date of Service Date of Service: 03/02/23 Progress Note: A&P Assessment and plan (1) Acute diverticulitis: Status: Acute (2) Obesity due to excess calories with serious comorbidity: Status: Acute (3) HTN (hypertension): Status: Acute (4) HLD (hyperlipidemia): Status: Acute Plan Instructions regarding diet, stool softeners or laxatives like MiraLax were reviewed and apparently understood. The importance of follow-up with his PCP for referral back to [facility] regarding colonoscopy to confirm the diagnosis was discussed. The patient's obesity and increased risk for polyps and colorectal cancer was discussed and the patient seems to understand the importance. Alternately, the patient wishes to transfer his care to a local GI, he has than option. Surgically stable for discharge. Time Spent With Patient Time: Total time managing care of this patient today ____ minutes. Quality Stroke Does the patient have a stroke diagnosis?: No VTE Prior VTE?: No VTE Risk Level:: Medical - moderate - high VTE Device Contraindication: Treatment Not Indicated VTE Drug Contraindication: N/A - Med Ordered
[2023-03-02 07:30] VITALS: BP 131/81; PULSE 68; RESP 18; TEMP 36.2; O2SAT 95
[2023-03-02 07:54] LABS: Glucose, Whole Blood 135 mg/dL (60-115)
--- NOTE | 2023-03-02 08:17 | HO.PM.IMPN ---
Subjective Subjective Date of Service: 03/02/23 Physical Exam Vital Signs: Vital Signs: Last Vital Signs Temp 97.2 F 03/02/23 07:30 Pulse 68 03/02/23 07:30 Resp 18 03/02/23 07:30 BP 131/81 03/02/23 07:30 Pulse Ox 95 03/02/23 07:30 O2 Del Method Room Air 03/02/23 07:30 BMI result Body Mass Index 37.5 Objective Data Active Medications Acetaminophen (Acetaminophen 325 Mg Tablet) 650 mg PO Q6H PRN PRN Reason: Pain, Mild (Pain Scale 1-3) Last Admin: 03/01/23 14:22 Dose: 650 mg Documented By: JAYDON Atorvastatin Calcium (Atorvastatin Calcium 40 Mg Tablet) 40 mg PO BEDTIME [facility] Last Admin: 03/01/23 22:19 Dose: 40 mg Documented By: EDER Bupropion HCl (Bupropion Hcl Xl 300 Mg Tab.Er.24h) 300 mg PO BEDTIME [facility] Last Admin: 03/01/23 22:19 Dose: 300 mg Documented By: EDER Dextrose (Dextrose 50 % 25 Gm/50 Ml Syringe) 25 gm IVPUSH Q15M PRN; Protocol PRN Reason: per Hypoglycemia Standing Ord. Diphenhydramine HCl (Diphenhydramine Hcl 25 Mg Capsule) 25 mg PO TID PRN PRN Reason: Itching Glucose (Glucose Gel 15 Gm Gel..Gram.) 15 gm PO Q15M PRN; Protocol PRN Reason: per Hypoglycemia Standing Ord. Heparin Sodium (Porcine) (Heparin Sodium,Porcine 5,000 Unit/Ml Vial) 5,000 unit SUBCUT Q12H [facility] Last Admin: 03/01/23 22:19 Dose: 5,000 unit Documented By: EDER Hydrochlorothiazide (Hydrochlorothiazide 25 Mg Tablet) 25 mg PO BEDTIME [facility] Last Admin: 03/01/23 22:19 Dose: 25 mg Documented By: EDER Piperacillin Sod/Tazobactam (Sod 4.5 gm/ Sodium Chloride) 100 mls @ 200 mls/hr IV Q6H [facility] Last Infusion: 03/02/23 04:09 Dose: 0 mls/hr Documented By: EDER Insulin Human Lispro (Insulin Lispro 100 Unit/Ml 3 Ml Vial) 0 unit SUBCUT QIDACHS [facility]; Protocol Last Admin: 03/01/23 20:52 Dose: Not Given Documented By: EDER Non-Admin Reason: No Insulin Coverage Lorazepam (Lorazepam 1 Mg Tablet) 2 mg PO BID@2000,0100 PRN PRN Reason: Sleep Last Admin: 03/01/23 22:19 Dose: 2 mg Documented By: EDER Losartan Potassium (Losartan Potassium 50 Mg Tablet) 50 mg PO BEDTIME [facility]; Protocol Last Admin: 03/01/23 22:19 Dose: 50 mg Documented By: EDER Morphine Sulfate (Morphine Sulfate 4 Mg/Ml Cartridge) 2 mg IVPUSH Q4H PRN; Protocol PRN Reason: Pain, Severe (Pain Scale 7-10) Last Admin: 02/28/23 12:36 Dose: 2 mg Documented By: JAYDON Ondansetron HCl (Ondansetron Hcl 4 Mg/2 Ml Vial) 4 mg IVPUSH Q8H PRN PRN Reason: Nausea and Vomiting Last Admin: 03/01/23 07:34 Dose: 4 mg Documented By: JAYDON Oxycodone HCl (Oxycodone Hcl Immed Release 5 Mg Tablet) 5 mg PO Q6H PRN PRN Reason: Pain, Moderate(Pain Scale 4-6) Last Admin: 03/01/23 00:42 Dose: 5 mg Documented By: EDER Sodium Chloride (0.9 % Sodium Chloride Flush 3 Ml Syringe) 3 ml IVFLUSH [facility] Last Admin: 03/01/23 22:21 Dose: 3 ml Documented By: EDER Labs 03/02/23 05:06 03/02/23 05:06 Labs: Laboratory Results - last 24 hr 03/01/23 03/01/23 03/01/23 11:32 16:14 20:37 MCV MCH MCHC RDW Plt Count MPV Absolute Nucleated RBC Nucleated RBC % (auto) Anion Gap Estim Creat Clear Calc Estimated GFR POC Glucose 101 114 127 H Fasting Glucose Calcium 03/02/23 03/02/23 03/02/23 05:06 05:06 07:29 MCV 84.0 MCH 28.4 MCHC 33.9 RDW 12.8 Plt Count 206 MPV 10.1 Absolute Nucleated RBC 0.000 Nucleated RBC % (auto) 0.0 Anion Gap 15 Estim Creat Clear Calc 76.3 Estimated GFR 60 POC Glucose 135 H Fasting Glucose 122 H Calcium 10.0 D Microbiology Microbiology Results: Microbiology 02/27/23 09:09 Blood Culture - Preliminary Blood - Venous No growth after 48 hours. 02/27/23 09:09 Blood Culture - Preliminary Blood - Venous No growth after 48 hours. Assessment and Plan Time Spent With Patient Time: Total time managing care of this patient today ____ minutes. Quality Stroke Does the patient have a stroke diagnosis?: No VTE Prior VTE?: No VTE Risk Level:: Medical - moderate - high VTE Device Contraindication: Treatment Not Indicated VTE Drug Contraindication: N/A - Med Ordered
[2023-03-02] MEDS: 0.9 % Sodium Chloride Flush 3 ML SYRINGE IVFLUSH (09:39)
[2023-03-02 11:44] LABS: Glucose, Whole Blood 162 mg/dL (60-115)
[2023-03-02] MEDS: Insulin Lispro 100 UNIT/ML 3 ML VIAL SUBCUT (11:51)
[2023-03-02] MEDS: Heparin Sodium,Porcine 5,000 UNIT/ML VIAL 5000 UNIT SUBCUT (11:59)
--- NOTE | 2023-03-02 12:15 | P.DS_ITS ---
DS: Providers Provider Date of Service: 03/02/23 Date of admission: 02/27/23 12:23 Date of discharge: 03/02/23 Primary care physician: Unknown Physician Admitting clinician: Meli Khanna Attending physician on admission: Jose Serra Consults: 02/27/23 08:56 Consult to General Surgery Stat Consulting Provider: [facility] General Surgeons Reason for consultation: Acute diverticulitis with microperforation Has provider been notified: Yes Attending physician on discharge: Jose Serra Discharging clinician: Meli Khanna DS: Diagnosis Discharge Diagnosis (1) Acute diverticulitis: Status: Acute (2) Obesity due to excess calories with serious comorbidity: Status: Acute (3) HTN (hypertension): Status: Acute (4) HLD (hyperlipidemia): Status: Acute DS: Summary Hospital Course Hospital Course: HPI and admission 02/27/23 by this author: Chief Complaint: abd pain 58 year old male with history htn, hld, ed, type 2 diabetes, mood disorder, and history uncomplicated diverticulitis presented to the ED for evaluation of LLQ pain that started around noon yesterday. He is here today with his daughter. OStates today that has been some additional cramping across the low abdomen with radiation to the left side. Reports pain is 10/10 at times. He is passing gas and moving bowels. No fevers, chills, nausea, vomiting, diarrhea, constipation, melena, or hematochezia. Has had diverticulitis 3 times without complication and states feels similar. Last colonoscopy was about 7 years ago and questions polyps. On arrival, VSS. Mild leukocytosis of 11.6. Renal function baseline, lytes normal. Hgb A1c 6.6%. lactic acid 1.6. UA unremarkable. CT abd/pelvis shows acute diverticulitis with possible microperforations but no drainable abscess. There is also 7mm RUL pulmonary nodule, repeat CT 18-24 months. In the ED received IV zosyn, torodol, and IVF. Evaluated by gen surgery who does not feel case is surgical at this time but recommending admission for IV abx and NPO. He is also complaining of right shoulder pain. He is 6w post op from rotator cuff repair. Hospital course: Hospital course uneventful. Patient was evaluated by General surgery given ques tion of micro perforation noted with the acute diverticulitis on CT scan though no drainable abscess was appreciated. Abdominal exam was benign and he is not felt to be a surgical candidate. He was treated conservatively with IV Zosyn as well as antiemetics and IV pain medication. He was initially NPO but diet was gradually advanced to clear liquids tendon soft low residue diet with good tolerance. Mild leukocytosis on admission of 11.6 resolved. Pain is well controlled on day of discharge and he has not required any narcotic medication in the last 30 hours. Patient reported having ?prediabetes? on admission there was being treated with metformin. Hemoglobin A1c was obtained and was 6.6% consistent with type 2 diabetes. Glucose levels remained well controlled throughout admission with 1 episode of hyperglycemia 162 treated with Humalog per sliding scale. The patient is advised that he should follow up with Gastroenterology for repeat colonoscopy as this is his 3rd recurrence of diverticulitis and he is at increased risk for colorectal cancer given history of polyps. Referral has been placed to gastroenterology. He is advised to follow-up with his PCP soon. Patient is also noted to be severely obese with BMI greater than 37 and weight loss efforts were discussed. Status at Discharge Functional status at discharge: independent ambulation Overall status at discharge: patient is progressing back to baseline Time Spent with Patient Time attestation: Total time managing care of this patient today ____ minutes. Discharge coordination time: Greater than 30 minutes Quality: Safe Use of Opioids Does Pt have an Active Cancer Diagnosis on the Problem List?: No Quality: Stroke Does the patient have a stroke diagnosis?: No Physical Exam Vital Signs: Vital Signs: Last Vital Signs Temp 97.2 F 03/02/23 07:30 Pulse 68 03/02/23 07:30 Resp 18 03/02/23 07:30 BP 131/81 03/02/23 07:30 Pulse Ox 95 03/02/23 07:30 O2 Del Method Room Air 03/02/23 07:30 BMI result Body Mass Index 37.5 Constitutional - Awake and Alert, No apparent distress Eyes - PERRLA, EOMI Cardiovascular - S1S2, RRR, No edema Respiratory - Normal lung expansion, Normal respiratory effort, No respiratory distress, CTA bilaterally Gastrointestinal - NT / ND; +BS; No rebound or guarding Extremities - no calf tenderness bilaterally, no swelling Skin - Warm/Dry Neurological - Alert & oriented x3 Psychological - Appropriate affect DS: Data Data Completed and Pending Labs on day of discharge: Laboratory Results - last 24 hr 03/01/23 03/01/23 03/02/23 16:14 20:37 05:06 WBC 6.9 RBC 4.50 L Hgb 12.8 L Hct 37.8 L MCV 84.0 MCH 28.4 MCHC 33.9 RDW 12.8 Plt Count 206 MPV 10.1 Absolute Nucleated RBC 0.000 Nucleated RBC % (auto) 0.0 Sodium Potassium Chloride Carbon Dioxide Anion Gap BUN Creatinine Estim Creat Clear Calc Estimated GFR POC Glucose 114 127 H Fasting Glucose Calcium 03/02/23 03/02/23 03/02/23 05:06 07:29 11:40 WBC RBC Hgb Hct MCV MCH MCHC RDW Plt Count MPV Absolute Nucleated RBC Nucleated RBC % (auto) Sodium 139 Potassium 3.7 Chloride 102 Carbon Dioxide 26 Anion Gap 15 BUN 18 H Creatinine 1.24 Estim Creat Clear Calc 76.3 Estimated GFR 60 POC Glucose 135 H 162 H Fasting Glucose 122 H Calcium 10.0 D Preliminary micro results at discharge 02/27/23 09:09 Blood Culture - Preliminary Blood - Venous No growth after 48 hours. 02/27/23 09:09 Blood Culture - Preliminary Blood - Venous No growth after 48 hours. Discharge Plan Discharge Anticipated Discharge Date/Time: 03/02/23 12:06 Patient Disposition: Home, Self-Care Discharge Diagnosis: diverticulitis Referrals: Physician,Unknown J [Primary Care Provider] - 1 Week Discharge Medications: New amoxicillin-pot clavulanate 875-125 mg tablet 1 tab PO Q12H Qty: 14 0RF Rx Instructions: Take with food Continued losartan 50 mg tablet 50 mg PO BEDTIME metformin 500 mg tablet 500 mg PO BID sildenafil 50 mg tablet 50 mg PO DAILY PRN (Reason: intercourse) chlorthalidone 25 mg tablet 25 mg PO BEDTIME simvastatin 80 mg tablet 80 mg PO BEDTIME lorazepam 2 mg tablet 2 mg PO BID@2000,0100 PRN (Reason: Sleep) bupropion HCl 300 mg tablet extended release 24 hr 300 mg PO BEDTIME acetaminophen [Tylenol] 325 mg Tablet 650 mg PO Q6H PRN (Reason: Pain) diphenhydramine HCl [Benadryl] 25 mg Capsule 25 mg PO TID PRN (Reason: Itching) ibuprofen [Advil] 200 mg Tablet 400 mg PO Q8H PRN (Reason: Pain) Discharge Orders: Discharge Order (Routine); Ordered 03/02/23 Ordered By: Meli Khanna Diet: Diabetic diet Activity on Discharge: As tolerated Stand Alone Forms: Patient Portal Discharge page Care Plan Goals: Continue treating diverticulitis with antibiotics Health Concerns: Acute, recurrent diverticulitis Plan of Treatment: Diverticulitis -treated with IV Zosyn for management of the acute diverticulitis with resolution of pain -weaned from pain medication -diet advanced with good tolerance -complete course of antibiotics with Augmentin 875 mg twice daily. Recommend taking this medication with food and eating yogurt for probiotics on a daily basis. The most common side effect with this medication is diarrhea. -follow-up with Gastroenterology soon for colonoscopy. Referral has been placed. Depending on insurance, PCP may need to place referral as well Type 2 diabetes -well controlled -highest glucose level while inpatient was 162. You manage with insulin in the hospital. Resume metformin as prescribed on discharge Severe obesity -BMI greater than 37 -continue working on healthy lifestyle modifications with strict compliance to diabetic diet and increase activity levels as tolerated. Limit calorie intake Assessment: As above Patient Instructions: Diverticulitis Diet (DC)
--- NOTE | 2023-03-02 12:52 | MHC.CM.PN ---
PT WILL DC HOME TODAY WITH NO SERVICES PT TO ARRANGE TRANSPORT
== END 2023-03-02 14:45 | disposition home or self-care (01) | DRG 244 ==
LOC: HO.ED 08:56 → HO.EDOVER 12:38 → HO.S3 14:47
PROVIDERS: Internal Medicine; Physician Assistant; Admitting Provider Physician Assistant; Emergency Provider Internal Medicine; Visit Provider Physician Assistant
DX: K57.20 Diverticulitis of large intestine with perforation and abscess without bleeding (principal); E11.9 Type 2 diabetes mellitus without complications; E78.5 Hyperlipidemia, unspecified; F39 Unspecified mood [affective] disorder; E66.09 Other obesity due to excess calories; Z68.37 Body mass index [BMI] 37.0-37.9, adult; E86.0 Dehydration; I10 Essential (primary) hypertension; Z79.84 Long term (current) use of oral hypoglycemic drugs; Z79.899 Other long term (current) drug therapy
CPT/HCPCS: 36415; 74177; 80048; 80076; 81003; 82947; 83036; 83605; 83690; 85025; 85027; 87040; 99285; J1643; J1885; J2270; J2405; J2543; Q9967

== ENCOUNTER → 2023-02-27 06:13 | Outpatient (BNV) | payer OTHER, SELFPAY | PROVIDERS: Emergency Provider Internal Medicine; Visit Provider Surgery | DX: K57.92 Diverticulitis of intestine, part unspecified, without perforation or abscess without bleeding (principal); E66.09 Other obesity due to excess calories; I10 Essential (primary) hypertension; E78.5 Hyperlipidemia, unspecified | CPT/HCPCS: 99231; 99232; 99284 ==

== ENCOUNTER → 2023-02-27 12:23 | Outpatient (BNV) | payer OTHER, SELFPAY | PROVIDERS: Admitting Provider Physician Assistant; Emergency Provider Internal Medicine; Visit Provider Physician Assistant | DX: K57.92 Diverticulitis of intestine, part unspecified, without perforation or abscess without bleeding (principal); I10 Essential (primary) hypertension; E66.09 Other obesity due to excess calories; Z68.37 Body mass index [BMI] 37.0-37.9, adult; E78.5 Hyperlipidemia, unspecified | CPT/HCPCS: 99223; 99232; 99239 ==

== ENCOUNTER 2023-06-26 15:00 | Outpatient (AMB) | payer OTHER, SELFPAY ==
--- NOTE | 2023-06-26 15:25 | MHC.PC.OV ---
Vital Signs 06/26/23 15:30 Height 5 ft 7 in Weight 221 lb BMI 34.6 BP 112/86 Blood Pressure Location Lt brachial Position Sitting Pulse 78 Pulse Source Palpation Intake Visit Reasons: LEAK HUNTER/Diverticulitis Intake Note: Patient is a new patient here to establish care for HTN, Insomnia and ТАТЬЯНА. Transferring care from [facility]. Medical records have been requested and received. Biometric Screener Required: No Accompanied by: Self / Same As Patient Allergies No Known Allergies [No Known Allergies*] Allergy (Verified 06/26/23 15:47) Medication List - Last Reconciled 06/26/23 by Jas Byrd PA-C acetaminophen (Tylenol) 650 mg PO Q6H PRN bupropion HCl 300 mg PO BEDTIME chlorthalidone 25 mg PO BEDTIME lorazepam 2 mg PO BID@1999,0100 PRN losartan 50 mg PO BEDTIME metformin 500 mg PO BID sildenafil 50 mg PO DAILY PRN simvastatin 80 mg PO BEDTIME Tobacco use date assessed: 06/26/23 Dental Screening Dental Screen Date: 06/26/23 Did you have a dental visit in the last 12 months?: Yes Did you have a dental problem in the last 6 months where you did not have access to dental care?: No Was dental information given to patient?: Patient has dentist HPI LEAK HUNTER/Diverticulitis HPI Details Patient is a 58-year-old male here today for new patient visit. Most recent primary care was at [facility]. Patient has a past medical history significant for hypertension, hyperlipidemia, diverticulosis ТАТЬЯНА type 2 diabetes. .. Type 2 diabetes: Patient continues on metformin 500 b.i.d.. Today's A1c is 6.5. .. Obesity: He does understand his BMI is over 30 and understands he needs to be more physically active in order to reduce his weight. He has been able to lose a significant amount of weight in the past by dieting and exercising. He would like to try this again. We did discuss new diabetic medication with added benefit of weight loss like Ozempic or Trulicity a patient would like to consider at a later date. .. ELIJAH: Continues to suffer with the generalized anxiety disorder. He continues on Wellbutrin which has been helpful for his anxiety. Was prescribed lorazepam 4 mg at night to help sleep. He reports he continues to have anxiety due to stress concerning his son battles with addiction.. He does understand benzodiazepines are habit-forming and is likely already dependent on benzodiazepine. He is interested weaning down on lower dose and trying a different medication for his insomnia. -- > of note he is concerned about some memory issues otherwise no other neurological deficits. We did discuss benzodiazepine use again and this likely the cause of his memory issue. .. Diverticulitis: Has had 2 episodes of diverticulitis that required ER evaluation and antibiotics. He is interested in establishing care with a gas line servicer. Did have a colonoscopy at age 50. PLAN: Advised to continue high-fiber diet, will supply patient with antibiotics for emergency use only. .. Hypertension: Blood pressure today in office acceptable. He continues on losartan 50 mg with good effect. .. Pulmonary nodule: Does report having a history of a pulmonary nodule in the left lung at 7 mm. He would like to continue following this. He is a previous smoker for 30 years and quit 8 years ago. [facility] Medical History (Updated 06/27/23 @ 07:27 by Jas Byrd PA-C) Erectile dysfunction HLD (hyperlipidemia) Type 2 diabetes mellitus HTN (hypertension) Borderline diabetes mellitus Acute diverticulitis Family History Mother Lung cancer Father Diabetes Bladder cancer Heart attack Brother Hypertension Diabetes Maternal Grandmother Hypertension Arthritis Maternal Aunt Family history of malignant neoplasm of female breast Social History Household Members: Family Housing: House Do you presently have visiting nurse or other home services: No Alcohol intake: never Patient Tobacco Use Status: Former Tobacco user (8 years ago) Tobacco use type: Cigarette e-Cigarette/Vaping Use: Never Used service: No Current occupational status: employed Cognitive needs: No Hearing needs: No Vision needs: Yes Questionnaire PHQ-9 Over the last 2 weeks, how often have you been bothered by any of the following problems? 1. Little interest or pleasure in doing things: not at all 2. Feeling down, depressed, or hopeless: not at all 3. Trouble falling or staying asleep, or sleeping too much: not at all 4. Feeling tired or having little energy: not at all 5. Poor appetite or overeating: not at all 6. Feeling bad about yourself - or that you are a failure or have let yourself or your family down: not at all 7. Trouble concentrating on things, such as reading the newspaper or watching television: not at all 8. Moving or speaking so slowly that other people could have noticed. Or the opposite - being so fidgety or restless that you have been moving around a lot more than usual: not at all 9. Thoughts that you would be better off or of hurting yourself in some way: not at all Total score: 0 Depression Screening Interpretation: Negative Depression Screening Done: Yes [id number] - PHQ-9 Billing: Yes Source: Developed by Drs. Hoang Sheffield, Samantha Barreto, Ben Niño and colleagues, with an educational salomon from [employer]. Thrive Questionnaire Date Thrive assessed: 06/26/23 I am a: Patient What is your living situation today?: I have a steady place to live Within the past 12 months, did the food you bought not last and you didn't have the money to get more?: Never true Within the past 12 months, did you worry whether your food would run out before you got money to buy more?: Never true Do you have trouble paying for medicines?: No Do you have trouble getting transportation to medical appointments?: No Do you have trouble paying your heating and electricity bill?: No Do you have trouble taking care of your child, family member or friend?: No Do you have trouble with day-to-day activities such as bathing, preparing meals, shopping, managing finances, etc.?: No Are you currently unemployed and looking for a job?: No Are you interested in more education?: No Please select the resources that you would like help with: None Currently or been in a relationship where the following occur: no concerns reported AUDIT C Alcohol Use Questionnaire (AUDIT-C) 1. How often do you have a drink containing alcohol?: Never 3. How often do you have six or more drinks on one occasion?: Never Total Score: 0 ELIJAH-7 AMB Questionnaire ELIJAH-7 Date ELIJAH - 7 assessed: 06/26/23 Feeling nervous, anxious, or on edge: 2 = More than half the days Not being able to stop or control worryin = Not at all Worrying too much about different things: 2 = More than half the days Trouble relaxin = More than half the days Being so restless that it is hard to sit still: 0 = Not at all Becoming easily annoyed or irritable: 0 = Not at all Feeling afraid as if something awful might happen: 0 = Not at all Total ELIJAH-7 score (0-4 normal; 5-9 mild; 10-14 moderate; 15-21 severe): 6 Source: Developed by Drs. Hoang Sheffield, Samantha Barreto, Ben Niño and colleagues, with an educational salomon from [employer]. ELIJAH-7 Assessment Billing ELIJAH-7 Assessment Tool: ELIJAH-7 Assessment 62163 Review of Systems Const Denies headache(s) Eyes Denies loss of vision ENT Denies vertigo, Denies dizziness, Denies headache(s) and Denies sore throat Card Denies chest pain, Denies leg edema and Denies lightheadedness Resp Denies cough, Denies hemoptysis and Denies wheezing GI Denies abdominal pain, Denies melena, Denies constipation, Denies diarrhea and Denies vomiting Denies dysuria, Denies urinary frequency and Denies urinary urgency Musc Denies arthralgias, Denies joint swelling, Denies numbness and Denies tingling Neuro Denies Abnormal speech present, Denies behavioral changes, Denies vertigo, Denies dizziness, Denies headache(s), Denies loss of vision, Denies memory loss, Denies numbness and Denies tingling Psych Denies anxiety, Denies behavioral changes, Denies depression, Denies memory loss and Denies panic attacks Awais/Lymph Denies easy bleeding and Denies easy bruising Aller/Immun Denies wheezing Physical exam (Primary Care) Vital Signs: Last Vital Signs Pulse 78 06/26/23 15:30 BP 112/86 06/26/23 15:30 BMI result Body Mass Index 34.6 BMI Assessment/Plan discussion: High Tobacco/Smoking Status: Tobacco use Status Tobacco use date assessed 06/26/23 06/26/23 15:36 Patient Tobacco Use Status Former Tobacco user (8 years 06/26/23 15:36 ago) Tobacco use type Cigarette 06/26/23 15:36 e-Cigarette/Vaping Use Never Used 06/26/23 15:36 PHQ-9: PHQ-9 Score PHQ-9: Total score 0 06/26/23 16:23 Depression Screening Interpretation: Negative Thrive Assessment: Date of Thrive Assessment Date Thrive assessed 06/26/23 06/26/23 15:36 Currently or been in a relationship where the following occur: no concerns reported Const Other: Obese General: healthy appearing, no acute distress, alert and awake Nutritional Appearance: well nourished Orientation/consciousness: oriented to person, oriented to place and oriented to time HENMT Ears: TM's normal bilaterally General nose exam: Normal nasal mucous membranes and turbinates present Eyes Conjunctivae: conjunctivae normal Sclerae: sclerae normal Pupils: Equal, round and reactive pupils present Neck Neck: Yes no lymphadenopathy and Yes no JVD Thyroid: Thyroid normal Carotids: no bruits Resp Effort & Inspection: normal respiratory effort and not tachypneic Auscultation: no crackles, no rales, no rhonchi and no wheezes Cardio Rate: regular rate Rhythm: regular rhythm Heart sounds: no murmurs and normal S1 and S2 GI Palpation (GI): Soft to palpation, nontender, no hepatomegaly and no splenomegaly Auscultation: normal bowel sounds Skin General skin exam: no rashes or lesions noted and dry skin Neuro General: oriented to person, oriented to place and oriented to time Cranial nerves: Yes Equal, round and reactive pupils present Speech: No Abnormal speech present Gait exam (Neuro): Normal gait present Motor exam (neuro): no tremor noted Extrem Right upper extremity: full ROM Left upper extremity: full ROM Right lower extremity: full ROM; no edema Left lower extremity: full ROM; no edema Psych Mental Status: mental status grossly normal Speech and movement: Normal speech and movement present Affect: normal affect Attitude: cooperative Thought process: Normal thought process present Office Procedures Flu Questionnaire Does the patient have a severe egg allergy?: No Does the patient have severe life threatening allergies?: No Does the patient have a fever or illness today?: No Has the patient ever had Guillain-Cofield Syndrome?: No Has the patient ever had any past reaction to a flu shot?: No Results AMB Hemoglobin A1c AMB Hemoglobin A1c 6.5 % Last Edit by ALEX Patterson on 06/26/23 15:39 Immunizations flu vacc [id number] 6mos up(PF) 60 mcg(15 mcgx4)/0.5 mL IM syringe Performing Provider: Jas Byrd PA-C [facility] Administered by: ALEX Patterson on 06/26/23 16:30 Dose Route Admin Location Dispensed Lot Number Expiration Date NDC Water Restoration Technician 0.5 mL IM Left Deltoid 0.5 mL [id number] 01/13/24 [id number] CISSOID VIS Given Date VIS Provided VIS Publication Date 06/26/23 Single Vaccine 21 Eligibility Eligibility Date Funding Source Not [facility] Eligible 06/26/23 Private Results Reviewed Results Reviewed: Laboratory Last Values Hgb A1c (Clinic) 6.5 % (4.0-6.0) H 06/26/23 15:24 Assessment and Plan Assessment & Plan (1) HTN (hypertension): Code(s): I10 - Essential (primary) hypertension Qualifiers: Hypertension type: primary hypertension Qualified Code(s): I10 - Essential (primary) hypertension Plan: Blood pressure today in office acceptable. Will continue his current dose of antihypertensive medication with goal blood pressure to remain below 140/90 (2) ТАТЬЯНА (obstructive sleep apnea): Code(s): G47.33 - Obstructive sleep apnea (adult) (pediatric) Plan: Patient does report getting sleep study that did show obstructive sleep apnea. Has not been able to establish care with a security control room officer. He does have a history of smoking and has a pulmonary nodule in his left lung that should be followed due to his years of smoking. Will refer to pulmonology (3) ELIJAH (generalized anxiety disorder): Code(s): F41.1 - Generalized anxiety disorder Plan: He does continue to suffer with anxiety we, worse at night with racing thoughts and difficulties with sleeping. Has been using lorazepam 2-4 mg at night for quite a while now and does understand he is likely dependent on benzodiazepines. He would like to wean down to lower dose of benzodiazepines. Prescribe lorazepam 1 mg b.i.d. to start using a lower dose of 1 mg in hopes he can wean down to lower doses.. Will like to try trazodone 50 mg at night to help him sleep. (4) Insomnia: Code(s): G47.00 - Insomnia, unspecified Qualifiers: Insomnia type: primary Qualified Code(s): F51.01 - Primary insomnia Plan: As above will try trazodone 50 mg to help sleep. (5) Memory impairment: Code(s): R41.3 - Other amnesia Plan: Has been noting memory impairment over last few months. We did discuss that this could be a side effect of benzodiazepines. He is somewhat concerned about brain tumor as his mother had brain tumor that was metastatic from lung.. This is fairly rare and patient does understand this. No other neurological deficits reported. (6) Type 2 diabetes mellitus: Code(s): E11.9 - Type 2 diabetes mellitus without complications Qualifiers: Diabetes mellitus complication status: with hyperglycemia Diabetes mellitus half-way insulin use: without half-way use Qualified Code(s): E11.65 - Type 2 diabetes mellitus with hyperglycemia Plan: Patient's type 2 diabetes well controlled. Today's A1c is 6.5. Patient continues on metformin 500 mg b.i.d.. Advised on being more adherent to a diabetic diet and trying to be more physically active to reduce his weight. Goal A1c is to remain below 7.0. (7) Pulmonary nodules: Code(s): R91.8 - Other nonspecific abnormal finding of lung field Plan: As per HPI patient does have a history of pulmonary nodule 7 mm in the left lung. He was followed by his previous PCP. He would like to establish care with a security control room officer due to his obstructive sleep apnea as well. (8) Obese: Code(s): E66.9 - Obesity, unspecified Qualifiers: Obesity type: due to excess calories Obesity classification: adult class 1 (BMI 30 - 34.9) Serious obesity comorbidity presence: with serious comorbidity Body mass index: BMI 34.0-34.9 Qualified Code(s): E66.09 - Other obesity due to excess calories; Z68.34 - Body mass index [BMI] 34.0-34.9, adult Plan: Patient does understand his BMI is over 30 will work on being more physically active and adapting to better eating habits to reduce his weight (9) Acute diverticulitis: Code(s): K57.92 - Diverticulitis of intestine, part unspecified, without perforation or abscess without bleeding Plan: Patient has had 2 episodes of acute diverticulitis over the last 2 years that required ER evaluation and antibiotics. He has had colonoscopy at age 50. He would like to establish care with a gas line servicer for new colonoscopy Currently doing well without any abdominal pain or diarrhea. . Advised on continuing high-fiber diet, will supply patient with emergency antibiotic as he is well aware of his symptoms of acute flare of diverticulitis per Orders: Orders Comprehensive Woodman. Panel Fast 06/26/23 I10 - Essential (primary) hypertension Influenza [id number] Immunization 06/26/23 Z23 - Encounter for immunization AMB Hemoglobin A1c 06/26/23 E11.9 - Type 2 diabetes mellitus without complications Lipid Panel 06/26/23 E78.5 - Hyperlipidemia, unspecified Microalbumin, Random (w Creat) 06/26/23 I10 - Essential (primary) hypertension Prostate Specific Antigen Scr 06/26/23 R91.8 - Other nonspecific abnormal finding of lung field, Z12.5 - Encounter for screening for malignant neoplasm of prostate Referrals Gastroenterology Referral K57.92 - Diverticulitis of intestine, part unspecified, without perforation or abscess without bleeding Pulmonology Referral R91.8 - Other nonspecific abnormal finding of lung field Medications: New amoxicillin-pot clavulanate 875-125 mg 1 tab PO Q12H 7 days 14 tabs 0RF K57.92 - Diverticulitis of intestine, part unspecified, without perforation or abscess without bleeding trazodone 50 mg PO BEDTIME 90 days 90 tabs 1RF F51.01 - Primary insomnia lorazepam 1 mg PO BID 30 days 60 tabs 2RF anxiety F41.1 - Generalized anxiety disorder Coding Level of Care Code New Pt Level 4 (39097) Diagnoses Primary hypertension I10 Hypertension type: primary hypertension ТАТЬЯНА (obstructive sleep apnea) G47.33 ELIJAH (generalized anxiety disorder) F41.1 Primary insomnia F51.01 Insomnia type: primary Memory impairment R41.3 Type 2 diabetes mellitus with hyperglycemia, without long-term current use of insulin E11.65 Diabetes mellitus complication status: with hyperglycemia Diabetes mellitus half-way insulin use: without half-way use Pulmonary nodules R91.8 Class 1 obesity due to excess calories with serious comorbidity and body mass index (BMI) of 34.0 to 34.9 in adult E66.09; Z68.34 Obesity type: due to excess calories Obesity classification: adult class 1 (BMI 30 - 34.9) Serious obesity comorbidity presence: with serious comorbidity Body mass index: BMI 34.0-34.9 Acute diverticulitis K57.92 Additional Codes ELIJAH-7 Assessment Billing - ELIJAH-7 Assessment Tool: ELIJAH-7 Assessment [id number] ([id number])
[2023-06-26 15:30] VITALS: BP 112/86; PULSE 78; BMI 34.6
== END 2023-06-26 16:28 | disposition home or self-care (01) ==
PROVIDERS: PCP Physician Assistant; Visit Provider Physician Assistant
DX: E11.9 Type 2 diabetes mellitus without complications (principal); Z23 Encounter for immunization
CPT/HCPCS: 83036; 90471; 90686; 99204

== ENCOUNTER 2023-08-14 09:38 | Outpatient (AMB) | payer OTHER, SELFPAY ==
[2023-08-14 10:08] VITALS: BP 122/82; PULSE 87; O2SAT 98; BMI 34.2
--- NOTE | 2023-08-14 10:08 | MHC.PC.OV ---
Vital Signs 08/14/23 10:08 Height 5 ft 7 in Weight 218 lb 6 oz BMI 34.2 BP 122/82 Blood Pressure Location Lt brachial Position Sitting Pulse 87 Pulse Source Pulse Oximeter Pulse Oximetry (%) 98 Oxygen Delivery Method Room Air Intake Visit Reasons: Cataract surgery-08/15 Intake Note: Patient is here for a Pre-op for Cataract surgery scheduled with Dr. Coates on 08/15/23. 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: No Accompanied by: Self / Same As Patient Allergies No Known Allergies [No Known Allergies*] Allergy (Verified 08/14/23 10:27) Medication List - Last Reconciled 08/14/23 by Jas Byrd PA-C bupropion HCl 300 mg PO BEDTIME chlorthalidone 25 mg PO BEDTIME lorazepam 1 mg PO BID 30 days losartan 50 mg PO BEDTIME meloxicam 15 mg PO DAILY metformin 500 mg PO BID sildenafil 50 mg PO DAILY PRN simvastatin 80 mg PO BEDTIME trazodone 50 mg PO BEDTIME 90 days Tobacco use date assessed: 08/14/23 Dental Screening Dental Screen Date: 08/14/23 Did you have a dental visit in the last 12 months?: Yes Did you have a dental problem in the last 6 months where you did not have access to dental care?: No Was dental information given to patient?: Patient has dentist HPI Cataract surgery-08/15 HPI Details Patient is a 58-year-old male here today for a preop visit. Patient has a past medical history significant for hypertension, hyperlipidemia, diverticulosis ТАТЬЯНА type 2 diabetes. Patient has no history of CVA, VT or Congestive heart failure. Patient not on any anticoagulation or anti-platelet therapy. .. Type 2 diabetes: Patient continues on metformin 500 b.i.d.. Most recent A1c of 6.5 . .. Hypertension: Patient's blood pressure acceptable today in office. Continues on losartan 50 mg daily. .. Obesity: Has lost a few lb since last office visit. He recently started a vegetarian diet . [facility] Medical History (Updated 08/14/23 @ 10:38 by Jas Byrd PA-C) Erectile dysfunction HLD (hyperlipidemia) Type 2 diabetes mellitus HTN (hypertension) Borderline diabetes mellitus Acute diverticulitis Family History Mother Lung cancer Father Diabetes Bladder cancer Heart attack Brother Hypertension Diabetes Maternal Grandmother Hypertension Arthritis Maternal Aunt Family history of malignant neoplasm of female breast Social History Household Members: Family Housing: House Do you presently have visiting nurse or other home services: No Alcohol intake: never Patient Tobacco Use Status: Former Tobacco user (8 years ago) Tobacco use type: Cigarette e-Cigarette/Vaping Use: Never Used service: No Current occupational status: employed Cognitive needs: No Hearing needs: No Vision needs: Yes Questionnaire PHQ-9 Over the last 2 weeks, how often have you been bothered by any of the following problems? 1. Little interest or pleasure in doing things: not at all 2. Feeling down, depressed, or hopeless: not at all 3. Trouble falling or staying asleep, or sleeping too much: not at all 4. Feeling tired or having little energy: not at all 5. Poor appetite or overeating: not at all 6. Feeling bad about yourself - or that you are a failure or have let yourself or your family down: not at all 7. Trouble concentrating on things, such as reading the newspaper or watching television: not at all 8. Moving or speaking so slowly that other people could have noticed. Or the opposite - being so fidgety or restless that you have been moving around a lot more than usual: not at all 9. Thoughts that you would be better off or of hurting yourself in some way: not at all Total score: 0 Depression Screening Interpretation: Negative Depression Screening Done: Yes 53558 - PHQ-9 Billing: Yes Source: Developed by Drs. Hoang Sheffield, Samantha Barreto, Ben Niño and colleagues, with an educational salomon from [employer]. Thrive Questionnaire Date Thrive assessed: 08/14/23 I am a: Patient What is your living situation today?: I have a steady place to live Within the past 12 months, did the food you bought not last and you didn't have the money to get more?: Never true Within the past 12 months, did you worry whether your food would run out before you got money to buy more?: Never true Do you have trouble paying for medicines?: No Do you have trouble getting transportation to medical appointments?: No Do you have trouble paying your heating and electricity bill?: No Do you have trouble taking care of your child, family member or friend?: No Do you have trouble with day-to-day activities such as bathing, preparing meals, shopping, managing finances, etc.?: No Are you currently unemployed and looking for a job?: No Are you interested in more education?: No Please select the resources that you would like help with: None Currently or been in a relationship where the following occur: no concerns reported THRIVE Score: 0 AUDIT C Alcohol Use Questionnaire (AUDIT-C) 1. How often do you have a drink containing alcohol?: Never 3. How often do you have six or more drinks on one occasion?: Never Total Score: 0 ELIJAH-7 AMB Questionnaire ELIJAH-7 Date ELIJAH - 7 assessed: 08/14/23 Feeling nervous, anxious, or on edge: 0 = Not at all Not being able to stop or control worryin = Not at all Worrying too much about different things: 0 = Not at all Trouble relaxin = Not at all Being so restless that it is hard to sit still: 0 = Not at all Becoming easily annoyed or irritable: 0 = Not at all Feeling afraid as if something awful might happen: 0 = Not at all Total ELIJAH-7 score (0-4 normal; 5-9 mild; 10-14 moderate; 15-21 severe): 0 Source: Developed by Drs. Hoang Sheffield, Samantha Barreto, Ben Niño and colleagues, with an educational salomon from [employer]. ELIJAH-7 Assessment Billing ELIJAH-7 Assessment Tool: ELIJAH-7 Assessment 61826 Review of Systems Const Denies headache(s) Eyes Denies loss of vision ENT Denies vertigo, Denies dizziness, Denies headache(s) and Denies sore throat Card Denies chest pain, Denies leg edema and Denies lightheadedness Resp Denies cough, Denies hemoptysis and Denies wheezing GI Denies abdominal pain, Denies melena, Denies constipation, Denies diarrhea and Denies vomiting Denies dysuria, Denies urinary frequency and Denies urinary urgency Musc Denies arthralgias, Denies joint swelling, Denies numbness and Denies tingling Neuro Denies Abnormal speech present, Denies behavioral changes, Denies vertigo, Denies dizziness, Denies headache(s), Denies loss of vision, Denies memory loss, Denies numbness and Denies tingling Psych Denies anxiety, Denies behavioral changes, Denies depression, Denies memory loss and Denies panic attacks Awais/Lymph Denies easy bleeding and Denies easy bruising Aller/Immun Denies wheezing Physical exam (Primary Care) Vital Signs: Last Vital Signs Pulse 87 08/14/23 10:08 BP 122/82 08/14/23 10:08 Pulse Ox 98 08/14/23 10:08 Oxygen Delivery Method Room Air 08/14/23 10:08 BMI result Body Mass Index 34.2 BMI Assessment/Plan discussion: High Tobacco/Smoking Status: Tobacco use Status Tobacco use date assessed 08/14/23 08/14/23 10:15 Patient Tobacco Use Status Former Tobacco user (8 years 08/14/23 10:15 ago) Tobacco use type Cigarette 08/14/23 10:15 e-Cigarette/Vaping Use Never Used 08/14/23 10:15 PHQ-9: PHQ-9 Score PHQ-9: Total score 0 08/14/23 10:22 Depression Screening Interpretation: Negative Thrive Assessment: Date of Thrive Assessment Date Thrive assessed 08/14/23 08/14/23 10:15 Currently or been in a relationship where the following occur: no concerns reported Const Other: Obese General: healthy appearing, no acute distress, alert and awake Nutritional Appearance: well nourished Orientation/consciousness: oriented to person, oriented to place and oriented to time HENMT Ears: TM's normal bilaterally General nose exam: Normal nasal mucous membranes and turbinates present Eyes Conjunctivae: conjunctivae normal Sclerae: sclerae normal Pupils: Equal, round and reactive pupils present Neck Neck: Yes no lymphadenopathy and Yes no JVD Thyroid: Thyroid normal Carotids: no bruits Resp Effort & Inspection: normal respiratory effort and not tachypneic Auscultation: no crackles, no rales, no rhonchi and no wheezes Cardio Rate: regular rate Rhythm: regular rhythm Heart sounds: no murmurs and normal S1 and S2 GI Palpation (GI): Soft to palpation, nontender, no hepatomegaly and no splenomegaly Auscultation: normal bowel sounds Skin General skin exam: no rashes or lesions noted and dry skin Neuro General: oriented to person, oriented to place and oriented to time Cranial nerves: Yes Equal, round and reactive pupils present Speech: No Abnormal speech present Gait exam (Neuro): Normal gait present Motor exam (neuro): no tremor noted Extrem Right upper extremity: full ROM Left upper extremity: full ROM Right lower extremity: full ROM; no edema Left lower extremity: full ROM; no edema Psych Mental Status: mental status grossly normal Speech and movement: Normal speech and movement present Affect: normal affect Attitude: cooperative Thought process: Normal thought process present Assessment and Plan Assessment & Plan (1) Pre-op evaluation: Code(s): Z01.818 - Encounter for other preprocedural examination Plan: Patient's most recent labs and vitals are stable. Patient is medically clear for needed cataract removal. (2) Type 2 diabetes mellitus: Code(s): E11.9 - Type 2 diabetes mellitus without complications Qualifiers: Diabetes mellitus halfway insulin use: without manager long term care use Diabetes mellitus complication status: with hyperglycemia Qualified Code(s): E11.65 - Type 2 diabetes mellitus with hyperglycemia Plan: Patient's type 2 diabetes well controlled on current therapies. Goal A1c is to remain below 7.0. (3) Cataract: Code(s): H26.9 - Unspecified cataract Qualifiers: Cataract type: age-related Age-related cataract type: other Laterality: right Qualified Code(s): H25.89 - Other age-related cataract Plan: As above Coding Level of Care Code Est Pt Level 3 (40772) Diagnoses Pre-op evaluation Z01.818 Type 2 diabetes mellitus with hyperglycemia, without long-term current use of insulin E11.65 Diabetes mellitus halfway insulin use: without halfway use Diabetes mellitus complication status: with hyperglycemia Other age-related cataract of right eye H25.89 Cataract type: age-related Age-related cataract type: other Laterality: right Additional Codes ELIJAH-7 Assessment Billing - ELIJAH-7 Assessment Tool: ELIJAH-7 Assessment 98263 ([id number])
== END 2023-08-14 10:37 | disposition home or self-care (01) ==
PROVIDERS: PCP Physician Assistant; Visit Provider Physician Assistant
DX: Z01.818 Encounter for other preprocedural examination (principal); E11.65 Type 2 diabetes mellitus with hyperglycemia; H25.89 Other age-related cataract
CPT/HCPCS: 99213

== ENCOUNTER 2023-08-17 14:56 | Outpatient (REF) | payer OTHER, SELFPAY ==
[2023-08-17 18:15] LABS: Iron 76 mcg/dL (45-160); Percent Iron Saturation 22 % (15-50); Total Iron Binding Capacity 338 mcg/dL (228-428); Unsaturated Iron Binding 262 ug/dL
[2023-08-17 18:32] LABS: Ferritin 340 ng/mL (20-250)
[2023-08-17 18:43] LABS: Folate 11.6 ng/mL (> or = 4.0); Vitamin B12 1058 pg/mL (200-900)
[2023-08-20 13:54] LABS: Immunoglobulin A 276 mg/dL (47-310)
[2023-08-20 19:18] LABS: Transglutaminase IgA <1.0 U/mL
== END 2023-08-17 14:57 | disposition home or self-care (01) ==
LOC: HO.LAB 14:56
PROVIDERS: PCP Physician Assistant; Visit Provider Internal Medicine
DX: D64.9 Anemia, unspecified (principal); K57.92 Diverticulitis of intestine, part unspecified, without perforation or abscess without bleeding
CPT/HCPCS: 36415; 82607; 82728; 82746; 82784; 83540; 86364

== ENCOUNTER 2023-08-17 14:56 | Outpatient (AMB) | payer OTHER, SELFPAY ==
--- NOTE | 2023-08-17 15:17 | MHC.OFFVIS ---
Intake Vital Signs 08/17/23 15:18 Height 5 ft 7 in Weight 220 lb 7.396 oz BMI 34.5 BP 137/87 Blood Pressure Location Lt brachial Position Sitting Pulse 88 Intake Visit Reasons: Diverticulitis of intestine, part unspecified Intake Note: Ross presents in the office as a new patient for diverticulitis. CC: He states that he is not having pains in the stomach usually but today he has gotten a weird feeling in the left side of his abdomen. He states he has had 3 episodes and he knows when they are coming on but he does not think this pain is related. Health Director Required: No Allergies No Known Allergies [No Known Allergies*] Allergy (Verified 08/17/23 15:18) HPI HPI Comments History of Present Illness Details This is a 58-year-old gentleman with past medical history of lung nodules, hyperlipidemia, cataracts, prediabetes, who presents to our office to establish care after current diverticulitis. Patient was admitted to [facility] last year for acute complicated diverticulitis with contained microperforation. This was managed conservatively with IV antibiotics. He reports that was his 3rd attack of acute diverticulitis over the past 5 years. He otherwise does not report any abdominal pain, nausea, vomiting, changes in bowel habits or blood in stool. Has not noticed any association of food with his flare-ups, but has cut down on meat since his last admission. Last colo was when he was 50 at [facility], was given a 10 year recall. No family history of colorectal cancer. Labs show chronic anemia since 2021, however this is normocytic with a normal RDW. [facility] Medical History Erectile dysfunction HLD (hyperlipidemia) Type 2 diabetes mellitus HTN (hypertension) Borderline diabetes mellitus Acute diverticulitis Surgical History Hx of colonoscopy Family History Mother Lung cancer Father Diabetes Bladder cancer Heart attack Brother Hypertension Diabetes Maternal Grandmother Hypertension Arthritis Maternal Aunt Family history of malignant neoplasm of female breast Social History Household Members: Family Housing: House Do you presently have visiting nurse or other home services: No Alcohol intake: never Patient Tobacco Use Status: Former Tobacco user (8 years ago) Tobacco use type: Cigarette e-Cigarette/Vaping Use: Never Used service: No Current occupational status: employed Cognitive needs: No Hearing needs: No Vision needs: Yes Review of Systems Const All systems reviewed & are unremarkable except as noted in HPI and below Physical Exam Vital Signs: Last Vital Signs Pulse 88 08/17/23 15:18 BP 137/87 08/17/23 15:18 BMI result Body Mass Index 34.5 Gen appear: NAD HEENT: nonicteric, no cervical lymphadenopathy Chest: CTA CVS: Regular S1/S2 Abd: soft, nontender, nondistended, bowel sounds + Ext: no peripheral edema Neuro: A/Ox3, noted to move all extremities spontaneously Psych: interacting appropriately Assessment & Plan Assessment & Plan (1) Anemia: Code(s): D64.9 - Anemia, unspecified (2) Acute diverticulitis: Code(s): K57.92 - Diverticulitis of intestine, part unspecified, without perforation or abscess without bleeding Plan Patient was informed that due to history of recent diverticulitis, he will need a follow-up colonoscopy to ensure no underlying malignancy. Since he also has concurrent anemia, we will also check iron studies and celiac serology. An EGD will be added on if either of these is clinically significant. Split PEG prep instructions were reviewed with the patient and handout was provided in written. He was also counseled on other general measures to reduce his risk of future diverticulitis such as - Healthy lifestyle involving low-moderate intake of red meat - High intake of dietary fiber (~20g/day). Can be supplemented with psyllium, methylcellulose, wheat dextrin. - Vigorous physical activity roughly 20 mins per day - Maintain normal BMI - Avoid smoking. Avoid NSAIDs. - colonoscopy to be scheduled as above +/- EGD, depending on results of the blood work Follow-up after endoscopy Orders: Orders Immunoglobulin A Today D64.9 - Anemia, unspecified Ferritin Today D64.9 - Anemia, unspecified IRON PROFILE Today D64.9 - Anemia, unspecified Vitamin B12 and Folate Today D64.9 - Anemia, unspecified Transglutaminase IgA Today D64.9 - Anemia, unspecified Medications: New peg 3350-electrolytes 236-22.74-6.74 -5.86 gram (Golytely) as per split prep instructions, until fecal effluent is clear 240 mL PO Q10M 4,000 mL 0RF colonoscopy Coding Level of Care Code New Pt Level 4 (34997) Diagnoses Anemia D64.9 Acute diverticulitis K57.92
[2023-08-17 15:18] VITALS: BP 137/87; PULSE 88; BMI 34.5
== END 2023-08-17 16:48 | disposition home or self-care (01) ==
PROVIDERS: PCP Physician Assistant; Visit Provider Internal Medicine
DX: D64.9 Anemia, unspecified (principal); K57.92 Diverticulitis of intestine, part unspecified, without perforation or abscess without bleeding
CPT/HCPCS: 99204

== ENCOUNTER 2023-08-21 07:13 | Outpatient (REF) | payer OTHER, SELFPAY ==
[2023-08-21 08:34] LABS: Alanine Aminotransferase 20 U/L (0-40); Albumin Level 4.5 g/dL (3.5-5.0); Alkaline Phosphatase 76 U/L (39-117); Anion Gap 16 (12-20); Aspartate Amino Transferase 13 U/L (5-37); Blood Urea Nitrogen 26 mg/dL (9-16); Carbon Dioxide 28 mmol/L (22-29); Chloride 99 mmol/L (96-108); Cholesterol 164 mg/dL (<200); Estimated Glomerular Filt Rate 51; Glucose Fasting 118 mg/dL (60-99); HDL Cholesterol 55 mg/dL (>40); LDL Cholesterol Calculated 80 mg/dL (<100); Potassium 3.8 mmol/L (3.3-5.1); Sodium 139 mmol/L (135-145); Total Protein 7.5 g/dL (6.5-8.0); Triglycerides 145 mg/dL (<150)
[2023-08-21 08:51] LABS: Prostate Specific Antigen Scr 0.66 ng/mL (<0.05-4.0)
== END 2023-08-21 07:14 | disposition home or self-care (01) ==
LOC: HO.LAB 07:13
PROVIDERS: PCP Physician Assistant; Visit Provider Physician Assistant
DX: Z12.5 Encounter for screening for malignant neoplasm of prostate (principal); I10 Essential (primary) hypertension; E78.5 Hyperlipidemia, unspecified; R91.8 Other nonspecific abnormal finding of lung field
CPT/HCPCS: 36415; 80053; 80061; 84153

== ENCOUNTER 2023-09-11 08:17 | Outpatient (AMB) | payer OTHER, SELFPAY ==
--- NOTE | 2023-09-11 08:25 | MHC.OFFVIS ---
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 The patient is a 50-year-old gentleman former smoker who presents for evaluation of underlying pulmonary nodules and sleep apnea. Apparently the patient quit smoking many years ago. He has been taking part in the lung cancer screening program. Initially started at [place] and then ultimately moved to [facility]. We did look at his CT scan from 2021 and also from [email or web address] reason April 2023. He does have multiple pulmonary nodules some that I calcified. The largest nodule measuring 67 mm in size appears to be a granuloma. He also has granulomas in the spleen. He does have a history of living in [place] and therefore is at risk for endemic fungal infections such as histoplasmosis. He also should get tested for tuberculosis. The patient is doing well denies any respiratory complaints. He does not use any inhalers. The patient does have daytime drowsiness. He was diagnosed sleep apnea in the past and had a CPAP machine that he has not difficulty with. Therefore he stopped using it. Subsequently after that he has had some weight loss after lifestyle changes. He is lost about 10 lb. He also underwent shoulder surgery and has been sleeping on his side and avoiding sleeping on his back because of the shoulder discomfort and has also been helping his snoring. Although, he still wakes up tired and he still wakes up snoring and his Peak score is elevated 10/24. Therefore, we did talk about different alternative therapy such as mandibular device positional therapy but at the end he does need to have a sleep study. We have him get a home sleep study at this time. The patient also undergo blood work to assess for histoplasmosis serology and also T spot. As far as his CT scans he is scheduled to the lung cancer screening program at [facility] would wishes to move it to [place]. Therefore refer him to the lung cancer screening program here at [place] in order for him to get the CT scan next at our facility. [facility] Medical History (Updated 09/11/23 @ 12:58 by Kane Ceron MD) Screening for lung cancer Pulmonary nodule Erectile dysfunction HLD (hyperlipidemia) Type 2 diabetes mellitus HTN (hypertension) Borderline diabetes mellitus Acute diverticulitis Surgical History Hx of colonoscopy Family History Mother Lung cancer Father Diabetes Bladder cancer Heart attack Brother Hypertension Diabetes Maternal Grandmother Hypertension Arthritis Maternal Aunt Family history of malignant neoplasm of female breast Social History Household Members: Family Housing: House Do you presently have visiting nurse or other home services: No Alcohol intake: never Patient Tobacco Use Status: Former Tobacco user (8 years ago) Tobacco use type: Cigarette e-Cigarette/Vaping Use: Never Used service: No Current occupational status: employed Cognitive needs: No Hearing needs: No Vision needs: Yes Review of Systems Const Reports daytime sleepiness, Reports snoring and Reports weight loss ENT Denies nasal congestion Card Denies chest pain Resp Reports snoring and Denies wheezing GI Reports no additional complaints Musc Reports no additional complaints Skin/Breast Denies rash Neuro Reports no additional complaints Endo Reports no additional complaints Awais/Lymph Denies lymphadenopathy Aller/Immun Denies wheezing Physical Exam Vital Signs: Last Vital Signs Pulse 79 09/11/23 08:27 BP 118/70 09/11/23 08:27 Pulse Ox 95 09/11/23 08:27 Oxygen Delivery Method Room Air 09/11/23 08:27 BMI result Body Mass Index 32.7 Const General: comfortable HEENT Head: Yes normocephalic Neck Neck: Yes supple Chest Chest palpation & inspection: normal inspection of the chest Resp Effort & Inspection: normal respiratory effort Auscultation: clear to auscultation bilaterally Cardio Heart sounds: S1 normal heart sound present and S2 normal heart sound present GI Palpation (GI): Soft to palpation Skin General skin exam: no rashes or lesions noted Extrem General: Yes no clubbing, cyanosis or edema Assessment & Plan Assessment & Plan (1) Pulmonary nodule: Comment: calcified and non calcified nodules. +Family history, h/o smoking Code(s): R91.1 - Solitary pulmonary nodule (2) ТАТЬЯНА (obstructive sleep apnea): Code(s): G47.33 - Obstructive sleep apnea (adult) (pediatric) (3) Screening for lung cancer: Code(s): Z12.2 - Encounter for screening for malignant neoplasm of respiratory organs Plan Bloodwork Home PSG LDCT at [facility], next due 04/2024 F/U 2-3 months Orders: Orders T Spot TB Today R91.1 - Solitary pulmonary nodule RT home sleep study Today G47.33 - Obstructive sleep apnea (adult) (pediatric) Other Ref Test - [facility] Today R91.1 - Solitary pulmonary nodule Referrals Thoracic Surgery Referral Z12.2 - Encounter for screening for malignant neoplasm of respiratory organs Coding Level of Care Code New Pt Level 4 (11422) Diagnoses Pulmonary nodule R91.1 ТАТЬЯНА (obstructive sleep apnea) G47.33 Screening for lung cancer Z12.2 Time Spent (min) 40
[2023-09-11 08:27] VITALS: BP 118/70; PULSE 79; O2SAT 95; BMI 32.7
== END 2023-09-11 09:00 | disposition home or self-care (01) ==
PROVIDERS: PCP Physician Assistant; Visit Provider Hospitalist
DX: R91.1 Solitary pulmonary nodule (principal); G47.33 Obstructive sleep apnea (adult) (pediatric); Z12.2 Encounter for screening for malignant neoplasm of respiratory organs
CPT/HCPCS: 99204

== ENCOUNTER 2023-09-11 08:17 | Outpatient (REF) | payer OTHER, SELFPAY ==
[2023-09-13 21:48] LABS: TS Negative Control Passed; TS Panel A 2; TS Panel B 1; TS Positive Control Passed; TSpotTB Negative (Negative)
== END 2023-09-11 08:18 | disposition home or self-care (01) ==
LOC: HO.LAB 08:17
PROVIDERS: PCP Physician Assistant; Visit Provider Hospitalist
DX: Z11.1 Encounter for screening for respiratory tuberculosis (principal); R91.1 Solitary pulmonary nodule; G47.33 Obstructive sleep apnea (adult) (pediatric)
CPT/HCPCS: 86481; 86698

== ENCOUNTER 2023-09-20 09:01 | Outpatient (REF) | payer OTHER, SELFPAY ==
[2023-09-20 10:41] LABS: Anion Gap 11 (12-20); Blood Urea Nitrogen 26 mg/dL (9-16); Calcium 9.9 mg/dL (8.4-10.2); Carbon Dioxide 27 mmol/L (22-29); Chloride 104 mmol/L (96-108); Estimated Glomerular Filt Rate > 60; Glucose Random 112 mg/dL (60-115); Potassium 3.6 mmol/L (3.3-5.1); Sodium 138 mmol/L (135-145)
[2023-09-20 11:01] LABS: Creatinine Urine 253.53 mg/dL; Microalbum/Creatinine Ratio Ur 59.1 ug/mg cr (<30)
== END 2023-09-20 09:02 | disposition home or self-care (01) ==
LOC: HO.LAB 09:01
PROVIDERS: PCP Physician Assistant; Visit Provider Physician Assistant
DX: I10 Essential (primary) hypertension (principal); R79.89 Other specified abnormal findings of blood chemistry
CPT/HCPCS: 36415; 80048; 82043; 82570

== ENCOUNTER 2023-09-26 08:07 | Outpatient (AMB) | payer OTHER, SELFPAY ==
[2023-09-26 08:14] VITALS: BP 122/76; PULSE 80; O2SAT 98; BMI 32.7
--- NOTE | 2023-09-26 08:14 | A.OFFPC_ITS ---
Vital Signs 09/26/23 08:14 Height 5 ft 7 in Weight 209 lb BMI 32.7 BP 122/76 Blood Pressure Location Lt brachial Position Sitting Pulse 80 Pulse Source Pulse Oximeter Pulse Oximetry (%) 98 Oxygen Delivery Method Room Air Intake Visit Reasons: f/u dmii/ HLD Allergies No Known Allergies [No Known Allergies*] Allergy (Verified 09/26/23 08:40) Medication List - Last Reconciled 09/26/23 by Jas Byrd PA-C bupropion HCl 300 mg PO BEDTIME chlorthalidone 25 mg PO BEDTIME lorazepam 1 mg PO BID 30 days losartan 50 mg PO BEDTIME meloxicam 15 mg PO DAILY PRN metformin 500 mg PO BID peg 3350-electrolytes 236-22.74-6.74 -5.86 gram (Golytely) 240 mL PO Q10M sildenafil 50 mg PO DAILY PRN simvastatin 80 mg PO BEDTIME trazodone 50 mg PO BEDTIME 90 days Tobacco use date assessed: 08/14/23 Dental Screening Dental Screen Date: 09/26/23 Did you have a dental visit in the last 12 months?: Yes Did you have a dental problem in the last 6 months where you did not have access to dental care?: No Was dental information given to patient?: Patient has dentist HPI f/u dmii/ HLD HPI Details Patient is a 58-year-old male here today for a follow-up visit Patient has a past medical history significant for hypertension, hyperlipidemia, diverticulosis ТАТЬЯНА type 2 diabetes. He is recently adapting to a vegetarian diet over last 2 months and feels good. He has plateaued with his weight loss and will increase his intensity of exercise. .. Type 2 diabetes: Patient continues on metformin 500 b.i.d.. Most recent A1c of 6.2 . Noted microalbuminuria- will follow in 6 months .. Hypertension: Patient's blood pressure acceptable today in office. Continues on losartan 50 mg daily. .. Obesity: Has lost a few lb since last office visit. He recently started a vegetarian diet . Laboratory Tests 03/02/23 03/02/23 06/26/23 05:06 11:40 15:24 RBC 4.50 L Hgb 12.8 L BUN Creatinine POC Glucose 162 H Hgb A1c (Clinic) 6.5 H Cholesterol Urine Microalbumin 08/21/23 09/20/23 09/20/23 07:27 09:05 09:19 RBC Hgb BUN 26 H Creatinine 1.03 POC Glucose Hgb A1c (Clinic) Cholesterol 164 Urine Microalbumin 150.0 09/26/23 08:19 RBC Hgb BUN Creatinine POC Glucose Hgb A1c (Clinic) 6.2 H Cholesterol Urine Microalbumin [facility] Medical History (Updated 09/27/23 @ 08:43 by Jas Byrd PA-C) Screening for lung cancer Pulmonary nodule Erectile dysfunction HLD (hyperlipidemia) Type 2 diabetes mellitus HTN (hypertension) Borderline diabetes mellitus Acute diverticulitis Surgical History Hx of colonoscopy Family History Mother Lung cancer Father Diabetes Bladder cancer Heart attack Brother Hypertension Diabetes Maternal Grandmother Hypertension Arthritis Maternal Aunt Family history of malignant neoplasm of female breast Social History Household Members: Family Housing: House Do you presently have visiting nurse or other home services: No Alcohol intake: never Patient Tobacco Use Status: Former Tobacco user (8 years ago) Tobacco use type: Cigarette e-Cigarette/Vaping Use: Never Used service: No Current occupational status: employed Cognitive needs: No Hearing needs: No Vision needs: Yes Questionnaire PHQ-9 Over the last 2 weeks, how often have you been bothered by any of the following problems? 1. Little interest or pleasure in doing things: not at all 2. Feeling down, depressed, or hopeless: not at all 3. Trouble falling or staying asleep, or sleeping too much: not at all 4. Feeling tired or having little energy: not at all 5. Poor appetite or overeating: not at all 6. Feeling bad about yourself - or that you are a failure or have let yourself or your family down: not at all 7. Trouble concentrating on things, such as reading the newspaper or watching television: not at all 8. Moving or speaking so slowly that other people could have noticed. Or the opposite - being so fidgety or restless that you have been moving around a lot more than usual: not at all 9. Thoughts that you would be better off or of hurting yourself in some way: not at all Total score: 0 Depression Screening Interpretation: Negative Depression Screening Done: Yes 61102 - PHQ-9 Billing: Yes Source: Developed by Drs. Hoang Sheffield, Ben Evans and colleagues, with an educational salomon from [employer]. Thrive Questionnaire Date Thrive assessed: 08/14/23 AUDIT C Alcohol Use Questionnaire (AUDIT-C) 1. How often do you have a drink containing alcohol?: Never 3. How often do you have six or more drinks on one occasion?: Never Total Score: 0 ELIJAH-7 AMB Questionnaire ELIJAH-7 Date ELIJAH - 7 assessed: 08/14/23 Source: Developed by Drs. Hoang Sheffield, Ben Evans and colleagues, with an educational salomon from [employer]. Review of Systems Const Denies headache(s) Eyes Denies loss of vision ENT Denies vertigo, Denies dizziness, Denies headache(s) and Denies sore throat Card Denies chest pain, Denies leg edema and Denies lightheadedness Resp Denies cough, Denies hemoptysis and Denies wheezing GI Denies abdominal pain, Denies melena, Denies constipation, Denies diarrhea and Denies vomiting Denies dysuria, Denies urinary frequency and Denies urinary urgency Musc Denies arthralgias, Denies joint swelling, Denies numbness and Denies tingling Neuro Denies Abnormal speech present, Denies behavioral changes, Denies vertigo, Denie s dizziness, Denies headache(s), Denies loss of vision, Denies memory loss, Denies numbness and Denies tingling Psych Denies anxiety, Denies behavioral changes, Denies depression, Denies memory loss and Denies panic attacks Awais/Lymph Denies easy bleeding and Denies easy bruising Aller/Immun Denies wheezing Physical exam (Primary Care) Vital Signs: Last Vital Signs Pulse 80 09/26/23 08:14 BP 122/76 09/26/23 08:14 Pulse Ox 98 09/26/23 08:14 Oxygen Delivery Method Room Air 09/26/23 08:14 BMI result Body Mass Index 32.7 Tobacco/Smoking Status: Tobacco use Status Tobacco use date assessed 08/14/23 09/26/23 08:18 Patient Tobacco Use Status Former Tobacco user (8 years 09/26/23 08:18 ago) Tobacco use type Cigarette 09/26/23 08:18 e-Cigarette/Vaping Use Never Used 09/26/23 08:18 PHQ-9: PHQ-9 Score PHQ-9: Total score 0 09/26/23 08:39 Depression Screening Interpretation: Negative Thrive Assessment: Date of Thrive Assessment Date Thrive assessed 08/14/23 09/26/23 08:18 Const General: healthy appearing, no acute distress, alert and awake Nutritional Appearance: well nourished Orientation/consciousness: oriented to person, oriented to place and oriented to time HENMT Ears: TM's normal bilaterally General nose exam: Normal nasal mucous membranes and turbinates present Eyes Conjunctivae: conjunctivae normal Sclerae: sclerae normal Pupils: Equal, round and reactive pupils present Neck Neck: Yes no lymphadenopathy and Yes no JVD Thyroid: Thyroid normal Carotids: no bruits Resp Effort & Inspection: normal respiratory effort and not tachypneic Auscultation: no crackles, no rales, no rhonchi and no wheezes Cardio Rate: regular rate Rhythm: regular rhythm Heart sounds: no murmurs and normal S1 and S2 GI Palpation (GI): Soft to palpation, nontender, no hepatomegaly and no splenomegaly Auscultation: normal bowel sounds Skin General skin exam: no rashes or lesions noted and dry skin Neuro General: oriented to person, oriented to place and oriented to time Cranial nerves: Yes Equal, round and reactive pupils present Speech: No Abnormal speech present Gait exam (Neuro): Normal gait present Motor exam (neuro): no tremor noted Extrem Right upper extremity: full ROM Left upper extremity: full ROM Right lower extremity: full ROM; no edema Left lower extremity: full ROM; no edema Psych Mental Status: mental status grossly normal Speech and movement: Normal speech and movement present Affect: normal affect Attitude: cooperative Thought process: Normal thought process present Results AMB Hemoglobin A1c AMB Hemoglobin A1c 6.2 % Last Edit by PASQUALE Valadez on 09/26/23 08:3 2 Results Reviewed Results Reviewed: Laboratory Last Values Hgb A1c (Clinic) 6.2 % (4.0-6.0) H 09/26/23 08:19 Assessment and Plan Assessment & Plan (1) HTN (hypertension): Code(s): I10 - Essential (primary) hypertension Qualifiers: Hypertension type: primary hypertension Qualified Code(s): I10 - Essential (primary) hypertension Plan: Blood pressure today in office acceptable. Will continue his current dose of antihypertensive medication with goal blood pressure to remain below 140/90 (2) ELIJAH (generalized anxiety disorder): Code(s): F41.1 - Generalized anxiety disorder Plan: He does continue to suffer with anxiety we, worse at night with racing thoughts and difficulties with sleeping. Has been using lorazepam 2-4 mg at night for quite a while now and does understand he is likely dependent on benzodiazepines. He would like to wean down to lower dose of benzodiazepines. Prescribe lorazepam 1 mg b.i.d. to start using a lower dose of 1 mg in hopes he can wean down to lower doses.. Will like to try trazodone 50 mg at night to help him sleep. (3) Type 2 diabetes mellitus: Code(s): E11.9 - Type 2 diabetes mellitus without complications Qualifiers: Diabetes mellitus complication status: with hyperglycemia Diabetes mellitus prison insulin use: without prison use Qualified Code(s): E11.65 - Type 2 diabetes mellitus with hyperglycemia Plan: Patient's type 2 diabetes well controlled. Most recent A1c acceptable. Will reduce his metformin to 500 q.d.... Advised on being more adherent to a diabetic diet and trying to be more physically active to reduce his weight. Goal A1c is to remain below 7.0. (4) Obese: Code(s): E66.9 - Obesity, unspecified Qualifiers: Body mass index: BMI 34.0-34.9 Obesity classification: adult class 1 (BMI 30 - 34.9) Obesity type: due to excess calories Serious obesity comorbidity presence: with serious comorbidity Qualified Code(s): E66.09 - Other obesity due to excess calories; Z68.34 - Body mass index [BMI] 34.0-34.9, adult Plan: Patient does understand his BMI is over 30 will work on being more physically active and adapting to better eating habits to reduce his weight. Continues on a vegetarian diet (5) Microalbuminuria: Code(s): R80.9 - Proteinuria, unspecified Plan: Noted moderate microalbuminuria. Will continue to follow. Continues on Arb. Diabetes and hypertension seemingly to be controlled. Orders: Orders Lipid Panel 6 Months E78.5 - Hyperlipidemia, unspecified AMB Hemoglobin A1c 09/26/23 Z13.9 - Encounter for screening, unspecified Hemoglobin A1c 6 Months E11 - Type 2 diabetes mellitus with hyperglycemia Comprehensive [place]. Panel Fast 6 Months - Type 2 diabetes mellitus with hyperglycemia Microalbumin, Random (w Creat) 6 Months I10 - Essential (primary) hypertension Medications: Changed From metformin 500 mg PO BID - Type 2 diabetes mellitus with hyperglycemia To metformin 500 mg PO DAILY - Type 2 diabetes mellitus with hyperglycemia Coding Level of Care Code Est Pt Level 4 (90417) Diagnoses Primary hypertension I10 Hypertension type: primary hypertension ELIJAH (generalized anxiety disorder) F41.1 Type 2 diabetes mellitus with hyperglycemia, without long-term current use of insulin Diabetes mellitus complication status: with hyperglycemia 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
== END 2023-09-26 08:56 | disposition home or self-care (01) ==
PROVIDERS: PCP Physician Assistant; Visit Provider Physician Assistant
DX: E11.65 Type 2 diabetes mellitus with hyperglycemia (principal)
CPT/HCPCS: 83036; 99214

== ENCOUNTER 2023-10-23 07:02 | Day surgery (SDC) | payer OTHER, SELFPAY ==
[2023-10-19 07:45] VITALS: BMI 34.5
--- NOTE | 2023-10-22 10:46 | HO.ANESPROP2 ---
Documented by User: Shwetha Gomez NP 10/22/23 10:46 HPI - Anesthesia Eval Consult details Narrative: 58yo M for Colonoscopy PMFSH Active Problems Active Problems: All Active Problems Microalbuminuria (Acute) Screening for lung cancer (Acute) Pulmonary nodule (Acute) Elevated serum creatinine (Acute) Anemia (Acute) Cataract (Acute) Pre-op evaluation (Acute) Obese (Acute) Pulmonary nodules (Acute) Type 2 diabetes mellitus (Acute) Memory impairment (Acute) Insomnia (Acute) ELIJAH (generalized anxiety disorder) (Acute) ТАТЬЯНА (obstructive sleep apnea) (Acute) Acute diverticulitis (Acute) Obesity due to excess calories with serious comorbidity (Acute) Dehydration (Acute) HLD (hyperlipidemia) (Acute) HTN (hypertension) (Acute) Past Medical History Medical History Screening for lung cancer Pulmonary nodule Erectile dysfunction HLD (hyperlipidemia) Type 2 diabetes mellitus HTN (hypertension) Borderline diabetes mellitus Acute diverticulitis Family History Family History Mother Lung cancer Father Diabetes Bladder cancer Heart attack Brother Hypertension Diabetes Maternal Grandmother Hypertension Arthritis Maternal Aunt Family history of malignant neoplasm of female breast Surgical History Surgical History Hx of colonoscopy Social History Social History Household Members: Family Housing: House Do you presently have visiting nurse or other home services: No Alcohol intake: never Patient Tobacco Use Status: Former Tobacco user Tobacco use type: Cigarette e-Cigarette/Vaping Use: Never Used Are you DNR?: No Advance Directives: No Advance Directives Information Provided: Yes Nutrition Risks: No Nutritional Risk service: No Current occupational status: employed Cognitive needs: No Hearing needs: No Vision needs: Yes Meds Allergies Allergy/AdvReac Type Severity Reaction Status Date / Time No Known Allergies Allergy Verified 10/23/23 07:14 [No Known Allergies*] Home Medications ?Medication ?Instructions ?Recorded ?Confirmed ?Last Taken ?Type bupropion HCl 300 mg 24 hr tablet, 150 mg PO BEDTIME 02/27/23 10/23/23 02/26/23 History extended release chlorthalidone 25 mg tablet 25 mg PO BEDTIME 02/27/23 10/23/23 02/26/23 History simvastatin 80 mg tablet 80 mg PO BEDTIME 02/27/23 10/23/23 02/26/23 History meloxicam 15 mg tablet 15 mg PO DAILY PRN Pain, Mild 09/11/23 10/23/23 Unknown History metformin 500 mg tablet 500 mg PO DAILY 09/26/23 10/23/23 Unknown History Exam Height,Weight and Vital Signs: Height 5 ft 7 in Weight 99.79 kg Assessment and Plan Assessment Anesthesia Assessment: Chart Reviewed Documented by User: Elisha Mayes MD 10/23/23 08:08 [facility] Past Medical History Medical History Screening for lung cancer Pulmonary nodule Erectile dysfunction HLD (hyperlipidemia) Type 2 diabetes mellitus HTN (hypertension) Borderline diabetes mellitus Acute diverticulitis Family History Family History Mother Lung cancer Father Diabetes Bladder cancer Heart attack Brother Hypertension Diabetes Maternal Grandmother Hypertension Arthritis Maternal Aunt Family history of malignant neoplasm of female breast Surgical History Surgical History Hx of colonoscopy History of Problems with Anesthesia: No Social History Social History Household Members: Family Housing: House Do you presently have visiting nurse or other home services: No Alcohol intake: never Patient Tobacco Use Status: Former Tobacco user Tobacco use type: Cigarette e-Cigarette/Vaping Use: Never Used Are you DNR?: No Advance Directives: No Advance Directives Information Provided: Yes Nutrition Risks: No Nutritional Risk service: No Current occupational status: employed Cognitive needs: No Hearing needs: No Vision needs: Yes Meds Allergies Allergy/AdvReac Type Severity Reaction Status Date / Time No Known Allergies Allergy Verified 10/23/23 07:14 [No Known Allergies*] Home Medications ?Medication ?Instructions ?Recorded ?Confirmed ?Last Taken ?Type bupropion HCl 300 mg 24 hr tablet, 150 mg PO BEDTIME 02/27/23 10/23/23 02/26/23 History extended release chlorthalidone 25 mg tablet 25 mg PO BEDTIME 02/27/23 10/23/23 02/26/23 History simvastatin 80 mg tablet 80 mg PO BEDTIME 02/27/23 10/23/23 02/26/23 History meloxicam 15 mg tablet 15 mg PO DAILY PRN Pain, Mild 09/11/23 10/23/23 Unknown History metformin 500 mg tablet 500 mg PO DAILY 09/26/23 10/23/23 Unknown History Exam Airway Mallampati Class: III TM Dist: >3cm Neck ROM: Full Loose/Missing/Broken Teeth: No Heart: RRR Lungs: CTA Assessment and Plan Assessment Anesthesia Assessment: Anesthesia Plan Discussed Final Anesthetic Review History of Problems with Anesthesia: No NPO: Yes ASA Class: II Final Preanesthetic Review: Meds/Allgs Chart Reviewed, Consent Obtained/Reviewed and Anes Risks/Benef Reviewed Patient Risk: Low Procedure Risk: Low Anesthetic Plan Anesthetic Plan: MAC: Disposition: Standard PACU
[2023-10-23 07:16] VITALS: BMI 33.4
[2023-10-23] MEDS: Lactated Ringers 1,000 ML 100 ML IVCONT (07:20)
[2023-10-23 07:29] LABS: Glucose, Whole Blood 120 mg/dL (60-115)
[2023-10-23 07:45] VITALS: BP 101/74; PULSE 95; RESP 18; TEMP 36.7; O2SAT 97
--- NOTE | 2023-10-23 08:22 | P.OP_ITS ---
Operative Note Operative Note Date of Service: 10/23/23 Narrative: Procedure: Colonoscopy Indication: Hx of diverticulitis Endoscopist: Sruthi Piña MD Anesthesia Provider: Herminia Chirinos CRNA Anesthesia type: MAC Instrument: Olympus [id number]-H190L Consent: Indication, risks vs benefits, and alternatives were discussed with the patient who gave written informed consent to proceed. EKG, pulse, pulse oximetry and blood pressure were monitored throughout the procedure. Please see anesthesia flowsheet. Procedure: The patient was brought to the procedure room and placed in the left lateral decubitus position. IV medications were administered by the anesthesia provider in attendance. A digital rectal exam was performed which was normal. A distal attachment cap was affixed to the tip of the scope and the colonoscope was then inserted through the anus and advanced through the colon to the cecum at 80cm,and terminal ileum. Ileocecal valve and appendiceal orifice were identified. Mucosa was carefully examined under high definition white light as the instrument was slowly withdrawn in a retrograde panoramic fashion. Retroflexion was performed in rectum. The procedure was not difficult. There were no immediate obvious complications. The quality of the prep was BBPS: 3+2+3 = adequate Withdrawal time 8 minutes. Limitations: No limitations. Findings: Mucosa: Normal to cecum and terminal ileum. Protruding lesions: * Large internal hemorrhoids without stigmata of recent bleeding. Excavated lesions: * Moderate to severe diverticulosis of left colon. Impression: 1. Normal colon and terminal ileum mucosa 2. Diverticulosis 3. Internal hemorrhoids Recommendations: -increase fiber intake -avoid constipation and straining -consider surgical referral if has >2 attacks of diverticulitis in a year -repeat colonoscopy in 10 years for asymptomatic colorectal cancer screening
--- NOTE | 2023-10-23 08:22 | MHC.SHP ---
Pre-Procedural Eval Section A - 24 Hr Update-Section A only Date of Service: 10/23/23 Section B - Complete if H&P > 30 days Chief Complaint: Diverticulitis of intestine, part unspecified Details of Present Illness: Erectile dysfunction HLD (hyperlipidemia) Type 2 diabetes mellitus HTN (hypertension) Borderline diabetes mellitus Acute diverticulitis Surgical History Hx of colonoscopy Family History Mother Lung cancer Father Diabetes Bladder cancer Heart attack Brother Hypertension Diabetes Maternal Grandmother Hypertension Arthritis Maternal Aunt Family history of malignant neoplasm of female breast Allergies: Allergies Allergy/AdvReac Type Severity Reaction Status Date / Time No Known Allergies Allergy Verified 10/23/23 07:14 [No Known Allergies*] Review of Systems Review of Systems Comment: Ten point ROS negative Exam Exam Comment: Gen appear: No acute distress HEENT: no icterus Chest: No overt resp distress Abd: soft, nontender, nondistended Psych: Stable affect, answering questions appropriately Neuro: A/Ox3 noted to move all extremities spontaneously Ext: no peripheral edema Plan Diagnosis/Plan: Unchanged I have reviewed the history and physical and performed a pertinent physical examination on my patient. No changes have occurred unless specified. Time Spent With Patient Time: Total time managing care of this patient today ____ minutes.
[2023-10-23 08:59] VITALS: BP 98/56; PULSE 86; RESP 16; TEMP 36.8; O2SAT 95
[2023-10-23 09:14] VITALS: BP 99/63; PULSE 74; RESP 20; TEMP 36.6; O2SAT 95
== END 2023-10-23 09:55 | disposition home or self-care (01) ==
PROVIDERS: PCP Physician Assistant; Visit Provider Internal Medicine
PROC: 0DJD8ZZ Inspection of Lower Intestinal Tract, Via Natural or Artificial Opening Endoscopic (ICD-10-PCS; CPT 45378; principal; 2023-10-23 08:20)
DX: Z12.11 Encounter for screening for malignant neoplasm of colon (principal); Z87.19 Personal history of other diseases of the digestive system; K57.30 Diverticulosis of large intestine without perforation or abscess without bleeding; D64.9 Anemia, unspecified; K64.8 Other hemorrhoids; I10 Essential (primary) hypertension; E78.5 Hyperlipidemia, unspecified; E11.9 Type 2 diabetes mellitus without complications; N52.9 Male erectile dysfunction, unspecified; R91.8 Other nonspecific abnormal finding of lung field; Z79.84 Long term (current) use of oral hypoglycemic drugs; Z79.899 Other long term (current) drug therapy; Z87.891 Personal history of nicotine dependence
CPT/HCPCS: 45378; 82947; J2704

== ENCOUNTER → 2023-10-23 07:02 | Outpatient (BNV) | payer OTHER, SELFPAY | PROVIDERS: PCP Physician Assistant; Visit Provider Internal Medicine | DX: K57.92 Diverticulitis of intestine, part unspecified, without perforation or abscess without bleeding (principal); K64.8 Other hemorrhoids | CPT/HCPCS: 45378 ==

== ENCOUNTER → 2023-10-24 08:56 | Outpatient (REF) | payer OTHER, SELFPAY | LOC: HO.SL 08:56 | PROVIDERS: PCP Physician Assistant; Visit Provider Hospitalist | DX: G47.33 Obstructive sleep apnea (adult) (pediatric) (principal) | CPT/HCPCS: 95806 ==

== ENCOUNTER → 2023-10-24 09:10 | Outpatient (BNV) | payer OTHER, SELFPAY | PROVIDERS: PCP Physician Assistant; Visit Provider Internal Medicine | DX: G47.33 Obstructive sleep apnea (adult) (pediatric) (principal) | CPT/HCPCS: 95806 ==

== ENCOUNTER 2023-11-15 13:00 | Outpatient (AMB) | payer OTHER, SELFPAY ==
--- NOTE | 2023-11-15 13:10 | MHC.OFFVIS ---
Vital Signs 11/15/23 13:11 Height 5 ft 7 in Weight 207 lb BMI 32.4 Pulse 92 Pulse Source Pulse Oximeter Pulse Oximetry (%) 97 Oxygen Delivery Method Room Air Intake Visit Reasons: ТАТЬЯНА/Sleep Study Follow Up Dolly Pusher Required: No Allergies No Known Allergies [No Known Allergies*] Allergy (Verified 11/15/23 13:12) HPI Comments Details: The patient is a 58-year-old gentleman former smoker who presents for evaluation of underlying pulmonary nodules and sleep apnea. Apparently the patient quit smoking many years ago. He has been taking part in the lung cancer screening program. Initially started at [place] and then ultimately moved to [facility]. We did look at his CT scan from 2021 and also from [facility] reason April 2023. He does have multiple pulmonary nodules some that I calcified. The largest nodule measuring 67 mm in size appears to be a granuloma. He also has granulomas in the spleen. He does have a history of living in [place] and therefore is at risk for endemic fungal infections such as histoplasmosis. He also should get tested for tuberculosis. The patient is doing well denies any respiratory complaints. He does not use any inhalers. The patient does have daytime drowsiness. He was diagnosed sleep apnea in the past and had a CPAP machine that he has not difficulty with. Therefore he stopped using it. Subsequently after that he has had some weight loss after lifestyle changes. He is lost about 10 lb. He also underwent shoulder surgery and has been sleeping on his side and avoiding sleeping on his back because of the shoulder discomfort and has also been helping his snoring. Although, he still wakes up tired and he still wakes up snoring and his [place] score is elevated 10/24. Therefore, we did talk about different alternative therapy such as mandibular device positional therapy but at the end he does need to have a sleep study. We have him get a home sleep study at this time. The patient also undergo blood work to assess for histoplasmosis serology and also T spot. As far as his CT scans he is scheduled to the lung cancer screening program at [facility] would wishes to move it to [place]. Therefore refer him to the lung cancer screening program here at [place] in order for him to get the CT scan next at our facility. 11/15/2023 the patient is here for a pulmonary follow-up visit. He continues to have daytime drowsiness. His [place] score still elevated 11/24. The patient did have a sleep study done which we reviewed in the office. His AHI is about 15 he did desaturate down to 77%. In addition to that he had episodes of tachycardia. The patient definitely needs to start CPAP therapy as soon as possible. Will go ahead and arranged with local [employer] company. In the meantime the patient did have his blood work done is T spot was negative and also the histoplasmosis serology was negative for any exposure. Therefore the etiology of the pulmonary nodules at this point is unclear. He will continue participating in the lung cancer screening program. His next CT scans going to be April 2024. the patient does have some mild crackles on examination primarily at the bases. Looking at the imaging studies last CT scan did have some slight atelectasis at the bases likely corresponding to the findings. Will plan to follow-up in 4 months. The patient will start using CPAP if he has any difficulties with the he will call for an earlier assessment. [facility] Medical History Screening for lung cancer Pulmonary nodule Erectile dysfunction HLD (hyperlipidemia) Type 2 diabetes mellitus HTN (hypertension) Borderline diabetes mellitus Acute diverticulitis Surgical History Hx of colonoscopy Family History Mother Lung cancer Father Diabetes Bladder cancer Heart attack Brother Hypertension Diabetes Maternal Grandmother Hypertension Arthritis Maternal Aunt Family history of malignant neoplasm of female breast Social History Household Members: Family Housing: House Do you presently have visiting nurse or other home services: No Alcohol intake: never Patient Tobacco Use Status: Former Tobacco user Tobacco use type: Cigarette e-Cigarette/Vaping Use: Never Used service: No Current occupational status: employed Cognitive needs: No Hearing needs: No Vision needs: Yes Review of Systems Const Reports daytime sleepiness, Reports snoring and Reports weight loss ENT Denies nasal congestion Card Denies chest pain Resp Reports snoring and Denies wheezing GI Reports no additional complaints Musc Reports no additional complaints Skin/Breast Denies rash Neuro Reports no additional complaints Endo Reports no additional complaints Awais/Lymph Denies lymphadenopathy Aller/Immun Denies wheezing Physical Exam Vital Signs: Last Vital Signs Pulse 92 11/15/23 13:11 Pulse Ox 97 11/15/23 13:11 Oxygen Delivery Method Room Air 11/15/23 13:11 BMI result Body Mass Index 32.4 Const General: comfortable HEENT Head: Yes normocephalic Neck Neck: Yes supple Chest Chest palpation & inspection: normal inspection of the chest Resp Effort & Inspection: normal respiratory effort Auscultation: rales on the left at the base Cardio Heart sounds: S1 normal heart sound present and S2 normal heart sound present GI Palpation (GI): Soft to palpation Skin General skin exam: no rashes or lesions noted Extrem General: Yes no clubbing, cyanosis or edema Assessment & Plan Assessment & Plan (1) Pulmonary nodule: Comment: calcified and non calcified nodules. +Family history, h/o smoking Code(s): R91.1 - Solitary pulmonary nodule Category: Medical (2) ТАТЬЯНА (obstructive sleep apnea): Code(s): G47.33 - Obstructive sleep apnea (adult) (pediatric) Category: Medical (3) Screening for lung cancer: Code(s): Z12.2 - Encounter for screening for malignant neoplasm of respiratory organs Category: Medical Plan start APAP ASHLI LDCT at [facility], next due 04/2024 F/U 4 months Coding Level of Care Code Est Pt Level 4 (40063) Diagnoses Pulmonary nodule R91.1 ТАТЬЯНА (obstructive sleep apnea) G47.33 Screening for lung cancer Z12.2 Time Spent (min) 18
[2023-11-15 13:11] VITALS: PULSE 92; O2SAT 97; BMI 32.4
== END 2023-11-15 13:31 | disposition home or self-care (01) ==
PROVIDERS: PCP Physician Assistant; Visit Provider Hospitalist
DX: R91.1 Solitary pulmonary nodule (principal); G47.33 Obstructive sleep apnea (adult) (pediatric); Z12.2 Encounter for screening for malignant neoplasm of respiratory organs
CPT/HCPCS: 99214

== ENCOUNTER → 2023-11-15 13:00 | Outpatient (BNVA) | payer OTHER, SELFPAY | PROVIDERS: PCP Physician Assistant; Visit Provider Hospitalist ==

== ENCOUNTER 2024-02-01 15:45 | Outpatient (AMB) | payer OTHER, SELFPAY ==
[2024-02-01 15:50] VITALS: PULSE 84; O2SAT 97; BMI 33.4
--- NOTE | 2024-02-01 15:50 | A.OFFVIS_ITS ---
Vital Signs 02/01/24 15:50 Height 5 ft 7 in Weight 213 lb BMI 33.4 Pulse 84 Pulse Source Pulse Oximeter Pulse Oximetry (%) 97 Oxygen Delivery Method Room Air Intake Visit Reasons: татьяна Processor Inspector Required: No Allergies No Known Allergies [No Known Allergies*] Allergy (Verified 02/01/24 15:51) HPI Comments Details: The patient is a 58-year-old gentleman former smoker who presents for evaluation of underlying pulmonary nodules and sleep apnea. Apparently the patient quit smoking many years ago. He has been taking part in the lung cancer screening program. Initially started at [place] and then ultimately moved to [facility]. We did look at his CT scan from 2021 and also from [facility] reason April 2023. He does have multiple pulmonary nodules some that I calcified. The largest nodule measuring 67 mm in size appears to be a granuloma. He also has granulomas in the spleen. He does have a history of living in [place] and therefore is at risk for endemic fungal infections such as histoplasmosis. He also should get tested for tuberculosis. The patient is doing well denies any respiratory complaints. He does not use any inhalers. The patient does have daytime drowsiness. He was diagnosed sleep apnea in the past and had a CPAP machine that he has not difficulty with. Therefore he stopped using it. Subsequently after that he has had some weight loss after lifestyle changes. He is lost about 10 lb. He also underwent shoulder surgery and has been sleeping on his side and avoiding sleeping on his back because of the shoulder discomfort and has also been helping his snoring. Although, he still wakes up tired and he still wakes up snoring and his [place] score is elevated 10/24. Therefore, we did talk about different alternative therapy such as mandibular device positional therapy but at the end he does need to have a sleep study. We have him get a home sleep study at this time. The patient also undergo blood work to assess for histoplasmosis serology and also T spot. As far as his CT scans he is scheduled to the lung cancer screening program at [facility] would wishes to move it to [place]. Therefore refer him to the lung cancer screening program here at [place] in order for him to get the CT scan next at our facility. 11/15/2023 the patient is here for a pulmonary follow-up visit. He continues to have daytime drowsiness. His [place] score still elevated 11/24. The patient did have a sleep study done which we reviewed in the office. His AHI is about 15 he did desaturate down to 77%. In addition to that he had episodes of tac hycardia. The patient definitely needs to start CPAP therapy as soon as possible. Will go ahead and arranged with local [employer] company. In the meantime the patient did have his blood work done is T spot was negative and also the histoplasmosis serology was negative for any exposure. Therefore the etiology of the pulmonary nodules at this point is unclear. He will continue participating in the lung cancer screening program. His next CT scans going to be April 2024. the patient does have some mild crackles on examination primarily at the bases. Looking at the imaging studies last CT scan did have some slight atelectasis at the bases likely corresponding to the findings. Will plan to follow-up in 4 months. The patient will start using CPAP if he has any difficulties with the he will call for an earlier assessment. 02/01/2024 the patient is here for a pulmonary follow-up visit. He still struggling with the CPAP some. He does want to use it he does feel better when he uses it. But he struggles with the pressure. He did try different mask currently has an N30 I mask. He feels like it fits better and he can sleep more comfortably with it. Although he has a significant air leakage because of the mouth being open. We did talk about chinstrap. I will order 1 from the [employer]. May also consider buying 1. The patient will start using it regularly. If he can not get used to the chinstrap that he may need to consider other alternatives such as mouth tape or just going back to the fullface mask. He did very well with a fullface mask as far as the pressures he has needed a pressure of 8-9 cm where with the nasal mask he needs a pressure of 12 cm. Likely from opening his mouth. The patient will be switched over to just a CPAP setting of 9 cm to minimize on the pressure and he will try this setting. He will call me a week or 2 to adjust the pressures accordingly. As far as his CT scan he is due for CAT scan soon. He is participating in the lung cancer sc reening program will arrange that for him. His respiratory exam is better he did have some crackles before but I do not appreciate any at this time. [facility] Medical History Screening for lung cancer Pulmonary nodule Erectile dysfunction HLD (hyperlipidemia) Type 2 diabetes mellitus HTN (hypertension) Borderline diabetes mellitus Acute diverticulitis Surgical History Hx of colonoscopy Family History Mother Lung cancer Father Diabetes Bladder cancer Heart attack Brother Hypertension Diabetes Maternal Grandmother Hypertension Arthritis Maternal Aunt Family history of malignant neoplasm of female breast Social History Household Members: Family Housing: House Do you presently have visiting nurse or other home services: No Alcohol intake: never Patient Tobacco Use Status: Former Tobacco user Tobacco use type: Cigarette e-Cigarette/Vaping Use: Never Used service: No Current occupational status: employed Cognitive needs: No Hearing needs: No Vision needs: Yes Review of Systems Const Reports daytime sleepiness, Reports snoring and Reports weight loss ENT Denies nasal congestion Card Denies chest pain Resp Reports snoring and Denies wheezing GI Reports no additional complaints Musc Reports no additional complaints Skin/Breast Denies rash Neuro Reports no additional complaints Endo Reports no additional complaints Awais/Lymph Denies lymphadenopathy Aller/Immun Denies wheezing Physical Exam Vital Signs: Last Vital Signs Pulse 84 02/01/24 15:50 Pulse Ox 97 02/01/24 15:50 Oxygen Delivery Method Room Air 02/01/24 15:50 BMI result Body Mass Index 33.4 Const General: comfortable HEENT Head: Yes normocephalic Neck Neck: Yes supple Chest Chest palpation & inspection: normal inspection of the chest Resp Effort & Inspection: normal respiratory effort Auscultation: clear to auscultation bilaterally and no rales Cardio Heart sounds: S1 normal heart sound present and S2 normal heart sound present GI Palpation (GI): Soft to palpation Skin General skin exam: no rashes or lesions noted Extrem General: Yes no clubbing, cyanosis or edema Assessment & Plan Assessment & Plan (1) Pulmonary nodule: Comment: calcified and non calcified nodules. +Family history, h/o smoking Code(s): R91.1 - Solitary pulmonary nodule Category: Medical (2) ТАТЬЯНА (obstructive sleep apnea): Code(s): G47.33 - Obstructive sleep apnea (adult) (pediatric) Category: Medical (3) Screening for lung cancer: Code(s): Z12.2 - Encounter for screening for malignant neoplasm of respiratory organs Category: Medical Plan adjusted APAP ->CPAP 9, needs chin strap or go back on FM LDCT at [facility], next due 04/2024 F/U 4 months Coding Level of Care Code Est Pt Level 4 (41696) Diagnoses Pulmonary nodule R91.1 ТАТЬЯНА (obstructive sleep apnea) G47.33 Screening for lung cancer Z12.2 Time Spent (min) 17
== END 2024-02-01 16:10 | disposition home or self-care (01) ==
PROVIDERS: PCP Physician Assistant; Visit Provider Hospitalist
DX: R91.1 Solitary pulmonary nodule (principal); G47.33 Obstructive sleep apnea (adult) (pediatric); Z12.2 Encounter for screening for malignant neoplasm of respiratory organs
CPT/HCPCS: 99214

== ENCOUNTER → 2024-02-01 15:45 | Outpatient (BNVA) | payer OTHER, SELFPAY | PROVIDERS: PCP Physician Assistant; Visit Provider Hospitalist ==

== ENCOUNTER 2024-03-10 12:59 | Outpatient (AMB) | payer OTHER, SELFPAY ==
--- NOTE | 2024-03-10 13:04 | MHC.OFFWIV ---
Intake Vital Signs 03/10/24 13:06 Height 5 ft 7 in Weight 236 lb BMI 37.0 BP 128/80 Blood Pressure Location Rt brachial Position Sitting Pulse 88 Pulse Source Pulse Oximeter Temp 98.5 F Temp Source Oral Pulse Oximetry (%) 97 Oxygen Delivery Method Room Air Intake Visit Reasons: EP- cramps in hands and feet Intake Note: pt c/o hands and feet cramping. Ongoing, intermittent. Patient Tobacco Use Status: Former Tobacco user Allergies No Known Allergies [No Known Allergies*] Allergy (Verified 03/10/24 13:05) Do you need a note to return to daycare/school/sports/work: No HPI EP- cramps in hands and feet HPI Details This note is constructed using voice recognition software. While every effort has been made to ensure accuracy, aerial installer errors may have been included. The patient is a 59 year old male who presents to the clinic today with bilateral hand and feet cramping intermittently for the past 3 months. 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 He has not had any numbness or tingling, injury, redness, joint swelling to the areas. Nothing seems to make it worse, and he will randomly have cramping that makes the hand feel locked. He has no history of surgery or injury to the areas. Incidentally, he also notes he had a rash onset last night where the skin felt dry and warm. He took benadryl and it seemed to help the symptoms. [facility] Medical History Screening for lung cancer Pulmonary nodule Erectile dysfunction HLD (hyperlipidemia) Type 2 diabetes mellitus HTN (hypertension) Borderline diabetes mellitus Acute diverticulitis Surgical History Hx of colonoscopy Family History Mother Lung cancer Father Diabetes Bladder cancer Heart attack Brother Hypertension Diabetes Maternal Grandmother Hypertension Arthritis Maternal Aunt Family history of malignant neoplasm of female breast Social History Household Members: Family Housing: House Do you presently have visiting nurse or other home services: No Alcohol intake: never Patient Tobacco Use Status: Former Tobacco user Tobacco use type: Cigarette e-Cigarette/Vaping Use: Never Used service: No Current occupational status: employed Cognitive needs: No Hearing needs: No Vision needs: Yes Review of Systems Const All systems reviewed & are unremarkable except as noted in HPI and below Physical Exam Vital Signs: Last Vital Signs Temp 98.5 F 03/10/24 13:06 Pulse 88 03/10/24 13:06 BP 128/80 03/10/24 13:06 Pulse Ox 97 03/10/24 13:06 Oxygen Delivery Method Room Air 03/10/24 13:06 BMI result Body Mass Index 37.0 Const General: cooperative, healthy appearing, comfortable, no acute distress and alert Orientation/consciousness: patient oriented x3 Limitations: no limitations Skin Other: Dry, flat skin to hands dorsal aspect bilaterally. General skin exam: elasticity normal and turgor normal Neuro General: patient oriented x3 Extrem Other: Strength 5/5 all extremities. No palpable deformity. Achiles intact. Negative Heather's, tinels. General: Yes normal to inspection, Yes full ROM, Yes capillary refill normal and Yes normal exam except as noted Psych Appearance: grossly normal Mental Status: mental status grossly normal Speech and movement: Normal speech and movement present Affect: normal affect Assessment & Plan Assessment & Plan (1) Hand cramp: Code(s): R25.2 - Cramp and spasm Plan: Etiology unclear, will obtain labs to rule electrolyte disturbance, especially in setting of thiazide diuretic use. Imaging deferred at this time. Advised follow up with pcp as he may require additional work up for symptoms to identify source if electrolytes normal. Plan See above for full details and plan. Orders: Orders Basic Metabolic Panel Today R25.2 - Cramp and spasm Coding Level of Care Code Est Pt Level 4 (02194) Diagnoses Hand cramp R25.2
[2024-03-10 13:06] VITALS: BP 128/80; PULSE 88; TEMP 36.9; O2SAT 97; BMI 37.0
== END 2024-03-10 13:32 | disposition home or self-care (01) ==
PROVIDERS: PCP Physician Assistant; Visit Provider Registered Nurse
DX: R25.2 Cramp and spasm (principal)
CPT/HCPCS: 99214

== ENCOUNTER 2024-03-10 13:27 | Outpatient (REF) | payer OTHER, SELFPAY ==
[2024-03-10 16:41] LABS: Anion Gap 17 (12-20); Blood Urea Nitrogen 36 mg/dL (9-16); Calcium 9.8 mg/dL (8.4-10.2); Carbon Dioxide 22 mmol/L (22-29); Chloride 102 mmol/L (96-108); Estimated Glomerular Filt Rate 48; Glucose Random 169 mg/dL (60-115); Potassium 3.5 mmol/L (3.3-5.1); Sodium 137 mmol/L (135-145)
== END 2024-03-10 13:28 | disposition home or self-care (01) ==
LOC: HO.HMGCLDS 13:27
PROVIDERS: PCP Physician Assistant; Visit Provider Registered Nurse
DX: R25.2 Cramp and spasm (principal)
CPT/HCPCS: 36415; 80048

== ENCOUNTER 2024-04-10 08:21 | Outpatient (REF) | payer OTHER, SELFPAY ==
--- NOTE | ~2024-04-10 | XR_ITS ---
EXAMINATION: XR ABDOMEN KUB CLINICAL INDICATION: Abdominal pain COMPARISON: CT abdomen and pelvis on 02/27/2023 TECHNIQUE: AP view of the abdomen. FINDINGS: The bowel gas pattern is normal with no evidence of ileus or obstruction. No unusual soft tissue calcifications are noted. The bones are unremarkable. XR/XR KUB IMPRESSION: Unremarkable examination. Electronically signed by: Shikha Haas MD 04/22/2024 04:43 PM EDT
[2024-04-10 11:03] LABS: Estimated Average Glucose 160 mg/dL; Hemoglobin A1c % 7.2 % (<6.0); Total Hemoglobin (HGBA1C) 3550.5885 umol/L
[2024-04-10 11:15] LABS: Appearance Urine Clear; Color Urine Yellow; Glucose Urine UA Negative (Negative); Leukocyte Esterase Urine Negative (Negative); Nitrite Urine Negative (Negative); PH 5.5 (5.0-9.0); Urine Blood Negative (Negative); Urine Ketones Negative (Negative); Urine Protein Trace mg/dL (Neg-Trace)
[2024-04-10 11:24] LABS: Alanine Aminotransferase 39 U/L (0-40); Albumin Level 4.4 g/dL (3.5-5.0); Alkaline Phosphatase 85 U/L (39-117); Anion Gap 14 (12-20); Aspartate Amino Transferase 16 U/L (5-37); Bilirubin Total 0.8 mg/dL (0.0-1.0); Blood Urea Nitrogen 38 mg/dL (9-16); Calcium 10.4 mg/dL (8.4-10.2); Carbon Dioxide 25 mmol/L (22-29); Chloride 102 mmol/L (96-108); Cholesterol 213 mg/dL (<200); Estimated Glomerular Filt Rate 51; Glucose Fasting 132 mg/dL (60-99); HDL Cholesterol 47 mg/dL (>40); LDL Cholesterol Calculated 135 mg/dL (<100); Potassium 3.4 mmol/L (3.3-5.1); Sodium 138 mmol/L (135-145); Total Protein 7.8 g/dL (6.5-8.0); Triglycerides 159 mg/dL (<150)
[2024-04-10 11:37] LABS: Prostate Specific Antigen Scr 0.89 ng/mL (<0.05-4.0)
[2024-04-10 11:39] LABS: Creatinine Urine 128.17 mg/dL; Microalbum/Creatinine Ratio Ur 53.8 ug/mg cr (<30)
== END 2024-04-10 08:22 | disposition home or self-care (01) ==
LOC: HO.XRAY 08:21
PROVIDERS: PCP Physician Assistant; Visit Provider Physician Assistant
DX: I10 Essential (primary) hypertension (principal); R30.0 Dysuria; N39.43 Post-void dribbling; Z12.5 Encounter for screening for malignant neoplasm of prostate; E78.5 Hyperlipidemia, unspecified; E11.65 Type 2 diabetes mellitus with hyperglycemia; R10.9 Unspecified abdominal pain
CPT/HCPCS: 36415; 74018; 80053; 80061; 81003; 82043; 82570; 83036; 84153

== ENCOUNTER 2024-04-10 08:21 | Outpatient (AMB) | payer OTHER, SELFPAY ==
--- NOTE | 2024-04-10 08:36 | MHC.PC.OV ---
Vital Signs 04/10/24 08:38 Height 5 ft 7 in Weight 226 lb BMI 35.4 BP 128/82 Blood Pressure Location Lt brachial Position Sitting Pulse 116 H Pulse Source Pulse Oximeter Pulse Oximetry (%) 95 Intake Visit Reasons: f/u DMII/ HTN Allergies No Known Allergies [No Known Allergies*] Allergy (Verified 04/10/24 08:44) Medication List - Last Reconciled 04/10/24 by Jas Byrd PA-C bupropion HCl XL 150 mg PO BEDTIME buspirone 5 mg PO BID 30 days chlorthalidone 25 mg PO BEDTIME 90 days CPAP (CPAP Machine/Device) As directed fluticasone propionate 50 mcg/actuation 2 sprays intranasal DAILY 30 days lorazepam 1 mg PO BID 30 days losartan 50 mg PO BEDTIME meloxicam 15 mg PO DAILY PRN metformin 500 mg PO DAILY sildenafil 50 mg PO DAILY PRN simvastatin 80 mg PO BEDTIME trazodone 50 mg PO BEDTIME 90 days Tobacco use date assessed: 08/14/23 Dental Screening Dental Screen Date: 09/26/23 HPI f/u DMII/ HTN HPI Details Patient is a 59-year-old male here today for a follow-up visit Patient has a past medical history significant for hypertension, hyperlipidemia, diverticulosis ТАТЬЯНА type 2 diabetes. Concern--> reports continues to have concerned about his memory. We did discuss his uncontrolled obstructive sleep apnea and years of being on a benzodiazepine may be the cause of his memory issues. He is willing to try to wean his dose of lorazepam down to 0.5 mg b.i.d. speak with his masonry teacher about other methods on treating his obstructive sleep apnea. He also reports having some urinary leakage over last few months in his concerned about this also had episode of left lower back and flank pain when he came back from in overseas trip to [place]. PLAN: Will send for x-ray of kidneys urinary bladder evaluate for kidney stone .. Type 2 diabetes: Patient continues on metformin 500 b.i.d.. Most recent A1c of 6.2 . Noted microalbuminuria- will follow in 6 months. Most recent labs do show a small increase in his creatinine. Will hold his chlorthalidone for now to see if renal functions improved. He also does report having muscle cramps in his hands and lower extremities which may be related to chlorthalidone. .. Hypertension: Patient's blood pressure acceptable today in office. Continues on losartan 50 mg daily. .. Obesity: He has unfortunately gained weight since last office visit. He is not on a vegetarian diet anymore. He does understand he needs to work on lifestyle modifications to reduce his weight. [facility] Medical History Screening for lung cancer Pulmonary nodule Erectile dysfunction HLD (hyperlipidemia) Type 2 diabetes mellitus HTN (hypertension) Borderline diabetes mellitus Acute diverticulitis Surgical History Hx of colonoscopy Family History Mother Lung cancer Father Diabetes Bladder cancer Heart attack Brother Hypertension Diabetes Maternal Grandmother Hypertension Arthritis Maternal Aunt Family history of malignant neoplasm of female breast Social History Household Members: Family Housing: House Do you presently have visiting nurse or other home services: No Alcohol intake: never Patient Tobacco Use Status: Former Tobacco user Tobacco use type: Cigarette e-Cigarette/Vaping Use: Never Used service: No Current occupational status: employed Cognitive needs: No Hearing needs: No Vision needs: Yes Questionnaire Thrive Questionnaire Date Thrive assessed: 08/14/23 Are you currently unemployed and looking for a job?: No ELIJAH-7 AMB Questionnaire ELIJAH-7 Date ELIJAH - 7 assessed: 08/14/23 Source: Developed by Drs. Hoang Sheffield, Samantha Barreto, Ben Niño and colleagues, with an educational salomon from [employer]. Review of Systems Const Denies headache(s) Eyes Denies loss of vision ENT Denies vertigo, Denies dizziness, Denies headache(s) and Denies sore throat Card Denies chest pain, Denies leg edema and Denies lightheadedness Resp Denies cough, Denies hemoptysis and Denies wheezing GI Denies abdominal pain, Denies melena, Denies constipation, Denies diarrhea and Denies vomiting Denies dysuria, Denies urinary frequency and Denies urinary urgency Musc Denies arthralgias, Denies joint swelling, Denies numbness and Denies tingling Neuro Denies Abnormal speech present, Denies behavioral changes, Denies vertigo, Denies dizziness, Denies headache(s), Denies loss of vision, Denies memory loss, Denies numbness and Denies tingling Psych Denies anxiety, Denies behavioral changes, Denies depression, Denies memory loss and Denies panic attacks Awais/Lymph Denies easy bleeding and Denies easy bruising Aller/Immun Denies wheezing Physical exam (Primary Care) Vital Signs: Last Vital Signs Pulse 116 H 04/10/24 08:38 BP 128/82 04/10/24 08:38 Pulse Ox 95 04/10/24 08:38 BMI result Body Mass Index 35.4 Tobacco/Smoking Status: Tobacco use Status Tobacco use date assessed 08/14/23 04/10/24 08:37 Patient Tobacco Use Status Former Tobacco user 04/10/24 08:37 Tobacco use type Cigarette 04/10/24 08:37 e-Cigarette/Vaping Use Never Used 04/10/24 08:37 Thrive Assessment: Date of Thrive Assessment Date Thrive assessed 08/14/23 04/10/24 08:37 Const General: healthy appearing, no acute distress, alert and awake Nutritional Appearance: well nourished Orientation/consciousness: oriented to person, oriented to place and oriented to time HENMT Ears: TM's normal bilaterally General nose exam: Normal nasal mucous membranes and turbinates present Eyes Conjunctivae: conjunctivae normal Sclerae: sclerae normal Pupils: Equal, round and reactive pupils present Neck Neck: Yes no lymphadenopathy and Yes no JVD Thyroid: Thyroid normal Carotids: no bruits Resp Effort & Inspection: normal respiratory effort and not tachypneic Auscultation: no crackles, no rales, no rhonchi and no wheezes Cardio Rate: regular rate Rhythm: regular rhythm Heart sounds: no murmurs and normal S1 and S2 GI Palpation (GI): Soft to palpation, nontender, no hepatomegaly and no splenomegaly Auscultation: normal bowel sounds Skin General skin exam: no rashes or lesions noted and dry skin Neuro General: oriented to person, oriented to place and oriented to time Cranial nerves: Yes Equal, round and reactive pupils present Speech: No Abnormal speech present Gait exam (Neuro): Normal gait present Motor exam (neuro): no tremor noted Extrem Right upper extremity: full ROM Left upper extremity: full ROM Right lower extremity: full ROM; no edema Left lower extremity: full ROM; no edema Psych Mental Status: mental status grossly normal Speech and movement: Normal speech and movement present Affect: normal affect Attitude: cooperative Thought process: Normal thought process present Results AMB Hemoglobin A1c AMB Hemoglobin A1c 7.2 % Last Edit by Maggie Dawson CMA on 04/10/24 08:48 Results Reviewed Results Reviewed: Laboratory Last Values Hgb A1c (Clinic) 7.2 % (4.0-6.0) H 04/10/24 08:44 Assessment and Plan Assessment & Plan (1) HTN (hypertension): Code(s): I10 - Essential (primary) hypertension Qualifiers: Hypertension type: primary hypertension Qualified Code(s): I10 - Essential (primary) hypertension Plan: Blood pressure today in office acceptable. Will hold his chlorthalidone as he has been having some muscle cramps in his hands and lower extremities. Also was found a small impairment in his renal function. Will get repeat labs Goal blood pressure to be below 140/90 (2) ELIJAH (generalized anxiety disorder): Code(s): F41.1 - Generalized anxiety disorder Plan: He does continue to suffer with anxiety we, worse at night with racing thoughts and difficulties with sleeping. Has been using lorazepam 2-4 mg at night for quite a while now and does understand he is likely dependent on benzodiazepines. He would like to wean down to lower dose of benzodiazepines. He is now willing to reduce his lorazepam down to 0.5 mg b.i.d... He has been started on BuSpar 5 mg b.i.d. though only takes it once a day. He unfortunately continues to have difficulty with his sleep and does not feel trazodone has been helpful. Was transitioned to using hydroxyzine 25-50 mg before bed to help sleep. (3) Type 2 diabetes mellitus: Code(s): E11.9 - Type 2 diabetes mellitus without complications Qualifiers: Diabetes mellitus complication status: with hyperglycemia Diabetes mellitus mcfp insulin use: without termite control representative use Qualified Code(s): E11.65 - Type 2 diabetes mellitus with hyperglycemia Plan: Patient's type 2 diabetes well controlled. Today's A1c up at 7.2 from 6.2. He understands his lifestyle and diet has been poor as of late. Advised on being more adherent to a diabetic diet and trying to be more physically active to reduce his weight. Goal A1c is to remain below 7.0. (4) Obese: Code(s): E66.9 - Obesity, unspecified Qualifiers: Body mass index: BMI 34.0-34.9 Obesity classification: adult class 1 (BMI 30 - 34.9) Obesity type: due to excess calories Serious obesity comorbidity presence: with serious comorbidity Qualified Code(s): E66.09 - Other obesity due to excess calories; Z68.34 - Body mass index [BMI] 34.0-34.9, adult Plan: Unfortunately has gained weight since last office visit. Patient does understand his BMI is over 30 will work on being more physically active and adapting to better eating habits to reduce his weight. Has stopped his vegetarian diet (5) Microalbuminuria: Code(s): R80.9 - Proteinuria, unspecified Plan: Noted moderate microalbuminuria. Will continue to follow. Continues on Arb. Diabetes and hypertension seemingly to be controlled. (6) Urinary leakage: Code(s): R32 - Unspecified urinary incontinence Qualifiers: Urinary Incontinence type: post-void dribbling Qualified Code(s): N39.43 - Post-void dribbling (7) Left flank pain: Code(s): R10.9 - Unspecified abdominal pain (8) Memory impairment: Code(s): R41.3 - Other amnesia Plan: We did discuss his family history of Alzheimer's. He does report his mom had brain cancer due to Mets from lung. We had long discussion about the possibility of benzodiazepines and uncontrolled obstructive sleep apnea causing some cognitive impairment for him. Will try to work on weaning his benzodiazepine dose. Orders: Orders XR KUB Today R10.9 - Unspecified abdominal pain UA CC w/rflx Micro + Cult Today N39.43 - Post-void dribbling, R30.0 - Dysuria AMB Hemoglobin A1c Today E11.65 - Type 2 diabetes mellitus with hyperglycemia Prostate Specific Antigen Scr Today N39.43 - Post-void dribbling, Z12.5 - Encounter for screening for malignant neoplasm of prostate Medications: New hydroxyzine HCl 25 mg PO BEDTIME 30 tabs 0RF 30 days F51.01 - Primary insomnia lorazepam 0.5 mg PO BID 60 tabs 1RF anxiety 30 days F41.1 - Generalized anxiety disorder Discontinued lorazepam Discontinued Reason: Doctor's Order 1 mg PO BID 30 days 60 tabs 2RF anxiety F41.1 - Generalized anxiety disorder On Hold trazodone Hold Comment: Doctor's Order 50 mg PO BEDTIME 90 days 90 tabs 1RF F51.01 - Primary insomnia chlorthalidone Hold Comment: Doctor's Order 25 mg PO BEDTIME 90 days 90 tabs 1RF I10 - Essential (primary) hypertension Patient Instructions: Goal: Blood pressure to be below 140/90 Barriers: Adherence to physical activity and healthy eating habits Coding Level of Care Code Est Pt Level 4 (78569) Diagnoses Primary hypertension I10 Hypertension type: primary hypertension ELIJAH (generalized anxiety disorder) F41.1 Type 2 diabetes mellitus with hyperglycemia, without long-term current use of insulin E11.65 Diabetes mellitus complication status: with hyperglycemia Diabetes mellitus termite control representative insulin use: without termite control representative use Class 1 obesity due to excess calories with serious comorbidity and body mass index (BMI) of 34.0 to 34.9 in adult E66.09; Z68.34 Body mass index: BMI 34.0-34.9 Obesity classification: adult class 1 (BMI 30 - 34.9) Obesity type: due to excess calories Serious obesity comorbidity presence: with serious comorbidity Microalbuminuria R80.9 Post-void dribbling N39.43 Urinary Incontinence type: post-void dribbling Left flank pain R10.9 Memory impairment R41.3
[2024-04-10 08:38] VITALS: BP 128/82; PULSE 116; O2SAT 95; BMI 35.4
== END 2024-04-10 10:48 | disposition home or self-care (01) ==
PROVIDERS: PCP Physician Assistant; Visit Provider Physician Assistant
DX: I10 Essential (primary) hypertension (principal); F41.1 Generalized anxiety disorder; E11.65 Type 2 diabetes mellitus with hyperglycemia; E66.09 Other obesity due to excess calories; Z68.34 Body mass index [BMI] 34.0-34.9, adult; R80.9 Proteinuria, unspecified; N39.43 Post-void dribbling; R10.9 Unspecified abdominal pain; R41.3 Other amnesia

== ENCOUNTER 2024-04-25 09:18 | Outpatient (AMB) | payer OTHER, SELFPAY ==
--- NOTE | 2024-04-25 07:45 | A.OFFVIS_ITS ---
Intake Visit Reasons: Former Smoker Allergies No Known Allergies [No Known Allergies*] Allergy (Verified 04/10/24 08:44) HPI HPI Former Smoker: Details: Initial visit for this 59yo former smoker with a 50PYH. Patient started smoking at age 16 for 35 years at 1.5ppd. He quit 8 years ago in 2016. . Denies marijuana use. Denies second hand smoke exposure. Denies exposure to chemicals or substances like asbestos. . Reports family history of lung cancer. Mother passed at 59yo. Phi week is the 30yr anniversary of her passing. Patient feeling anxious. Denies personal history of cancers. . Denies chest CT in last year. 04/18/[address] [place] [facility] showed multiple small nodules . Denies recent travel outside the [place]. Denies recent respiratory illness or recent hospitalization for respiratory issues. Denies testing positive for COVID. Admits receiving COVID Vaccine. . Histroy of ТАТЬЯНА - not tolerating CPAP. Has follow up with tmd teacher next week to discuss alternatives. Denies fever, chills, new/worsening cough, hemoptysis, hoarseness or dysphagia. Denies significant chest pain, significant dyspnea or unintentional weight loss. Patient Lung Cancer Screening Questionnaire reviewed with patient by provider. . Shared Decision Making Completed. Patient meets criteria. Discussed in detail with patient, the risk vs benefit of LDCT screening. Patient consents to proceed with scan. Discussed smoking cessation. [facility] Medical History (Updated 04/25/24 @ 09:30 by Meli Orta PA-C) ТАТЬЯНА (obstructive sleep apnea) Pulmonary nodules Obese Personal history of nicotine dependence Erectile dysfunction HLD (hyperlipidemia) Type 2 diabetes mellitus HTN (hypertension) Acute diverticulitis Surgical History (Updated 04/25/24 @ 09:39 by Meli Orta PA-C) History of repair of right rotator cuff History of left knee surgery History of colonoscopy Family History Mother Lung cancer Father Diabetes Bladder cancer Heart attack Brother Hypertension Diabetes Maternal Grandmother Hypertension Arthritis Maternal Aunt Family history of malignant neoplasm of female breast Social History (Updated 04/25/24 @ 09:30 by Meli Orta PA-C) Household Members: Family Housing: House Do you presently have visiting nurse or other home services: No Alcohol intake: never Patient Tobacco Use Status: Former Tobacco user Years Smoked: (onset 16yo, 1.5ppd x 35yrs, 50pyh, quit 2016) e-Cigarette/Vaping Use: Never Used service: No Current occupational status: employed Cognitive needs: No Hearing needs: No Vision needs: Yes Assessment & Plan Assessment & Plan (1) Personal history of nicotine dependence: Comment: (onset 16yo, 1.5ppd x 35yrs, 50pyh, quit 2016, +fam hx lung ca mom) Code(s): Z87.891 - Personal history of nicotine dependence Category: Medical Plan: - SDM visit completed today in office. - Patient meets criteria for LDCT for lung cancer screening purposes and is asymptomatic. - Smoking cessation counseling offered. Patients can always call [phone]. - Will arrange for a LDCT scan of the chest for screening purposes at [facility]. - Risks, benefits, and alternatives were discussed in detail and the patient agrees to proceed. - Risks discussed include but are not limited to: radiation exposure, anxiety during testing and while awaiting results, false negatives, false positives and possibility of additional intervention such as further imaging or surgical procedures for benign disease. - Benefits are obviously detection of lung cancer at an early stage which can lead to improved outcomes. - Discussed the importance of screening program compliance with adherence to yearly LDCT scan as scheduled - or sooner interval scans for personalized screening regimen. - Discussed follow up plan. Our office will send a letter discussing results and if needed set up phone call and office visit based on CT findings. - Patient educated on results categorization and the management decisions for suspicious findings potentially found on the screening LDCT scan. Any patient with a Lung RADS score of 3 or 4 will be reviewed by a multidisciplinary team at [facility] to form a plan of action in regards to scan findings. - If further work up is warranted for a suspicious lung finding this will be followed by the Lung Cancer Screening program in conjunction with the Thoracic Surgery Department at [facility]. - A copy of the office note and LDCT will be sent to the patient's PCP - as well as documentation on any associated further plans of care. - Incidental findings on LDCT are the PCP's responsibility. These findings are indicated with an S finding on the LDCT Assessment. A note discussing the findings will be sent to the PCP who is then responsible for further management. - All questions answered.? Coding Level of Care Code Lung Cancer Screening G0296 Diagnoses Personal history of nicotine dependence Z87.891
== END 2024-04-25 09:27 | disposition home or self-care (01) ==
PROVIDERS: PCP Physician Assistant; Visit Provider Physician Assistant Medical
DX: Z87.891 Personal history of nicotine dependence (principal)
CPT/HCPCS: G0296

== ENCOUNTER → 2024-04-25 09:18 | Outpatient (BNVA) | payer OTHER, SELFPAY | PROVIDERS: PCP Physician Assistant; Visit Provider Physician Assistant Medical | DX: Z87.891 Personal history of nicotine dependence (principal) | CPT/HCPCS: G0296 ==

== ENCOUNTER 2024-05-01 10:05 | Outpatient (AMB) | payer OTHER, SELFPAY ==
[2024-05-01 10:10] VITALS: BP 134/78; PULSE 87; O2SAT 98; BMI 38.1
--- NOTE | 2024-05-01 10:10 | MHC.OFFVIS ---
Vital Signs 05/01/24 10:10 Height 5 ft 7 in Weight 243 lb 2.718 oz BMI 38.1 BP 134/78 Blood Pressure Location Lt brachial Position Sitting Pulse 87 Pulse Source Pulse Oximeter Pulse Oximetry (%) 98 Oxygen Delivery Method Room Air Intake Visit Reasons: татьяна Coffee Grower Required: No Allergies No Known Allergies [No Known Allergies*] Allergy (Verified 05/01/24 10:13) HPI Comments Details: The patient is a 59-year-old gentleman former smoker who presents for evaluation of underlying pulmonary nodules and sleep apnea. Apparently the patient quit smoking many years ago. He has been taking part in the lung cancer screening program. Initially started at [place] and then ultimately moved to [facility]. We did look at his CT scan from 2021 and also from [facility] reason April 2023. He does have multiple pulmonary nodules some that I calcified. The largest nodule measuring 67 mm in size appears to be a granuloma. He also has granulomas in the spleen. He does have a history of living in [place] and therefore is at risk for endemic fungal infections such as histoplasmosis. He also should get tested for tuberculosis. The patient is doing well denies any respiratory complaints. He does not use any inhalers. The patient does have daytime drowsiness. He was diagnosed sleep apnea in the past and had a CPAP machine that he has not difficulty with. Therefore he stopped using it. Subsequently after that he has had some weight loss after lifestyle changes. He is lost about 10 lb. He also underwent shoulder surgery and has been sleeping on his side and avoiding sleeping on his back because of the shoulder discomfort and has also been helping his snoring. Although, he still wakes up tired and he still wakes up snoring and his Pine Top score is elevated 05/08. Therefore, we did talk about different alternative therapy such as mandibular device positional therapy but at the end he does need to have a sleep study. We have him get a home sleep study at this time. The patient also undergo blood work to assess for histoplasmosis serology and also T spot. As far as his CT scans he is scheduled to the lung cancer screening program at [facility] would wishes to move it to [place]. Therefore refer him to the lung cancer screening program here at [place] in order for him to get the CT scan next at our facility. 11/15/2023 the patient is here for a pulmonary follow-up visit. He continues to have daytime drowsiness. His Pine Top score still elevated 11/24. The patient did have a sleep study done which we reviewed in the office. His AHI is about 15 he did desaturate down to 77%. In addition to that he had episodes of tachycardia. The patient definitely needs to start CPAP therapy as soon as possible. Will go ahead and arranged with local [employer] company. In the meantime the patient did have his blood work done is T spot was negative and also the histoplasmosis serology was negative for any exposure. Therefore the etiology of the pulmonary nodules at this point is unclear. He will continue participating in the lung cancer screening program. His next CT scans going to be April 2024. the patient does have some mild crackles on examination primarily at the bases. Looking at the imaging studies last CT scan did have some slight atelectasis at the bases likely corresponding to the findings. Will plan to follow-up in 4 months. The patient will start using CPAP if he has any difficulties with the he will call for an earlier assessment. 02/01/2024 the patient is here for a pulmonary follow-up visit. He still struggling with the CPAP some. He does want to use it he does feel better when he uses it. But he struggles with the pressure. He did try different mask currently has an N30 I mask. He feels like it fits better and he can sleep more comfortably with it. Although he has a significant air leakage because of the mouth being open. We did talk about chinstrap. I will order 1 from the [employer]. May also consider buying 1. The patient will start using it regularly. If he can not get used to the chinstrap that he may need to consider other alternatives such as mouth tape or just going back to the fullface mask. He did very well with a fullface mask as far as the pressures he has needed a pressure of 8-9 cm where with the nasal mask he needs a pressure of 12 cm. Likely from opening his mouth. The patient will be switched over to just a CPAP setting of 9 cm to minimize on the pressure and he will try this setting. He will call me a week or 2 to adjust the pressures accordingly. As far as his CT scan he is due for CAT scan soon. He is participating in the lung cancer screening program will arrange that for him. His respiratory exam is better he did have some crackles before but I do not appreciate any at this time. 05/01/2024 the patient is here for a pulmonary follow-up visit. He has been having issues with CPAP. He has been having hard time using specially since she had a sick family member. His dog is been sick with seizures. Been keeping him up at nighttime. Hopefully we can start using the CPAP soon. He has been noticing some increased weight gain to increased daytime drowsiness with an Pine Top elevated Pine Top score of 12/24. In addition to that he has been noticing increasing tachycardia and lower extremity edema. This left lower extremity also has some area of tenderness over the medial lower part of the ankle. He does have some pitting edema. He has not had a cardiac workup in some time. The patient does take cardioprotective medications. I explained to him the importance of using CPAP specially if there is a cardiac issue going on. He is going to start using it. In addition to that he is waiting for the lung cancer screening CT scan. Scheduled for April. He has a 0.5 cm pulmonary nodule that needs follow-up. Will again call his insurance company to make sure his approve in order to order it. Once he gets it done will compare. The patient also has been developing shortness of breath with activity. Moderate severity. Will plan to do pulmonary function studies prior to the next visit. In addition to that the patient is going to work on weight management. And again the cardiac workup would be helpful. [facility] Medical History (Updated 05/01/24 @ 10:41 by Kane Ceron MD) Dyspnea ТАТЬЯНА (obstructive sleep apnea) Pulmonary nodules Obese Personal history of nicotine dependence Erectile dysfunction HLD (hyperlipidemia) Type 2 diabetes mellitus HTN (hypertension) Acute diverticulitis Surgical History (Updated 04/25/24 @ 09:45 by Meli Orta PA-C) History of repair of right rotator cuff History of left knee surgery History of colonoscopy Family History Mother Lung cancer Father Diabetes Bladder cancer Heart attack Brother Hypertension Diabetes Maternal Grandmother Hypertension Arthritis Maternal Aunt Family history of malignant neoplasm of female breast Social History (Updated 04/25/24 @ 09:30 by Meli Orta PA-C) Household Members: Family Housing: House Do you presently have visiting nurse or other home services: No Alcohol intake: never Patient Tobacco Use Status: Former Tobacco user Years Smoked: (onset 16yo, 1.5ppd x 35yrs, 50pyh, quit 2016) e-Cigarette/Vaping Use: Never Used service: No Current occupational status: employed Cognitive needs: No Hearing needs: No Vision needs: Yes Review of Systems Const Reports daytime sleepiness, Reports snoring and Reports weight gain ENT Denies nasal congestion Card Denies chest pain Resp Reports snoring and Denies wheezing GI Reports no additional complaints Musc Reports no additional complaints Skin/Breast Denies rash Neuro Reports no additional complaints Endo Reports no additional complaints Awais/Lymph Denies lymphadenopathy Aller/Immun Denies wheezing Physical Exam Const General: comfortable HEENT Head: Yes normocephalic Neck Neck: Yes supple Chest Chest palpation & inspection: normal inspection of the chest Resp Effort & Inspection: normal respiratory effort Auscultation: clear to auscultation bilaterally and no rales Cardio Heart sounds: S1 normal heart sound present and S2 normal heart sound present GI Palpation (GI): Soft to palpation Skin General skin exam: no rashes or lesions noted Extrem General: Yes no clubbing, cyanosis or edema Assessment & Plan Assessment & Plan (1) Pulmonary nodule: Comment: (calcified and non calcified nodules; former smoker +family hx lung ca mom) Code(s): R91.1 - Solitary pulmonary nodule Category: Medical (2) ТАТЬЯНА (obstructive sleep apnea): Comment: (not tolerating CPAP) Code(s): G47.33 - Obstructive sleep apnea (adult) (pediatric) Category: Medical (3) Screening for lung cancer: Code(s): Z12.2 - Encounter for screening for malignant neoplasm of respiratory organs Category: Medical (4) Dyspnea: Code(s): R06.00 - Dyspnea, unspecified Category: Medical Qualifiers: Dyspnea type: dyspnea on exertion Qualified Code(s): R06.09 - Other forms of dyspnea Plan adjusted APAP ->CPAP 9-->APAP 6-8, needs chin strap or go back [place] [facility] [place] due 04/2024 EKG, likely will need a cardiac evaluation PFTs in 3 months F/U 3-4 months Orders: Orders PFT pulmonary function test 3 Months R06.09 - Other forms of dyspnea Coding Level of Care Code Est Pt Level 4 (15317) Diagnoses Pulmonary nodule R91.1 АТТЬЯНА (obstructive sleep apnea) G47.33 Screening for lung cancer Z12.2 Dyspnea on exertion R06.09 Dyspnea type: dyspnea on exertion Time Spent (min) 17
== END 2024-05-01 10:30 | disposition home or self-care (01) ==
PROVIDERS: PCP Physician Assistant; Visit Provider Hospitalist
DX: R91.1 Solitary pulmonary nodule (principal); G47.33 Obstructive sleep apnea (adult) (pediatric); Z12.2 Encounter for screening for malignant neoplasm of respiratory organs; R06.09 Other forms of dyspnea
CPT/HCPCS: 99214

== ENCOUNTER → 2024-05-01 10:05 | Outpatient (BNVA) | payer OTHER, SELFPAY | PROVIDERS: PCP Physician Assistant; Visit Provider Hospitalist ==

== ENCOUNTER 2024-05-09 08:18 | Outpatient (AMB) | payer OTHER, SELFPAY ==
--- NOTE | 2024-05-09 08:24 | MHC.OFFWIV ---
Intake Vital Signs 05/09/24 08:26 Height 5 ft 7 in Weight 240 lb 2 oz BMI 37.6 BP 122/80 Blood Pressure Location Rt brachial Position Sitting Pulse 79 Pulse Source Pulse Oximeter Pulse Oximetry (%) 98 Oxygen Delivery Method Room Air Intake Visit Reasons: EP pain & swollen LT ankle Intake Note: Patient here for left ankle swelling that has been present for a few weeks. he also mentions having slight SOB. Patient Tobacco Use Status: Former Tobacco user Allergies No Known Allergies [No Known Allergies*] Allergy (Verified 05/09/24 08:26) Do you need a note to return to daycare/school/sports/work: No HPI HPI Comments History of Present Illness Details This is a 59-year-old male who presented to the walk-in clinic complaining of left lower extremity swelling and pain. He states he first noticed this about 1 week ago while pulmonology appointment. He denies any trauma/injury to the left lower extremity. He denies any recent surgeries but he did travel to [place] approximately 1 month prior to his symptoms starting. Patient states he did start to develop mild shortness of breath approximately 1 week ago, as well He states his shortness of breath mostly occurs with exertion and is very mild at this point. Patient states he called his primary care physician as well as his chief construction inspector who recommended he go to the emergency room or the walk-in clinic to rule out DVT. Patient's recent pulmonology note from 05/01/2024 was reviewed and the patient did complain of some shortness of breath with exertion at that appointment, as well. The patient's chief construction inspector thought that this could be related to his inability to use CPAP overnight. The patient also informed the chief construction inspector of his lower extremity edema and weight gain and the patient's chief construction inspector recommended a cardiology workup. [facility] Medical History (Updated 05/07/24 @ 10:26 by Kane Ceron MD) Lower extremity edema Dyspnea ТАТЬЯНА (obstructive sleep apnea) Pulmonary nodules Obese Personal history of nicotine dependence Erectile dysfunction HLD (hyperlipidemia) Type 2 diabetes mellitus HTN (hypertension) Acute diverticulitis Surgical History (Updated 04/25/24 @ 09:45 by Meli Orta PA-C) History of repair of right rotator cuff History of left knee surgery History of colonoscopy Family History Mother Lung cancer Father Diabetes Bladder cancer Heart attack Brother Hypertension Diabetes Maternal Grandmother Hypertension Arthritis Maternal Aunt Family history of malignant neoplasm of female breast Social History (Updated 04/25/24 @ 09:30 by Meli Orta PA-C) Household Members: Family Housing: House Do you presently have visiting nurse or other home services: No Alcohol intake: never Patient Tobacco Use Status: Former Tobacco user Years Smoked: (onset 16yo, 1.5ppd x 35yrs, 50pyh, quit 2016) e-Cigarette/Vaping Use: Never Used service: No Current occupational status: employed Cognitive needs: No Hearing needs: No Vision needs: Yes Review of Systems Const All systems reviewed & are unremarkable except as noted in HPI and below Reports no additional complaints Eyes Reports no additional complaints ENT Reports no additional complaints Card Reports no additional complaints Resp Reports no additional complaints GI Reports no additional complaints Reports no additional complaints Musc Reports no additional complaints Skin/Breast Reports system reviewed and no additional complaints, except as documented Neuro Reports no additional complaints Psych Reports no additional complaints Endo Reports no additional complaints Awais/Lymph Reports no additional complaints Aller/Immun Reports no additional complaints Physical Exam Vital Signs: Last Vital Signs Pulse 79 05/09/24 08:26 BP 122/80 05/09/24 08:26 Pulse Ox 98 05/09/24 08:26 Oxygen Delivery Method Room Air 05/09/24 08:26 BMI result Body Mass Index 37.6 Const Other: Vital signs reviewed. Constitutional: Non-toxic appearing. No acute distress. Well-developed and well-nourished. HEENT: Normocephalic and atraumatic. Skin: Warm and dry. No rashes or lesions noted. Neck: Full and painless range of motion. No cervical lymphadenopathy. Cardio: Regular rate and rhythm. No murmurs, gallops, or rubs. No lower extremity edema. No JVD. There is 1+ pitting edema of the left lower extremity and the left calf is greater in circumference than the right calf. There is some tenderness to palpation of the medial aspect of the left ankle but no calf tenderness to palpation. Pulmonary: No respiratory distress. No accessory muscle usage. Clear to auscultation bilaterally without wheezing, crackles, or rhonchi. Patient walked from his examination room to the radiology department without any evidence of dyspnea or increased work of breathing. Gastrointestinal: Soft, nontender, and nondistended in all 4 quadrants. Musculoskeletal: Normal range of motion in joints throughout the body. No deformity or other signs of injury. Neuro: Alert and oriented x4. Cranial nerves 2-12 grossly intact. No focal deficits appreciated. Psych: Normal mood and affect. Office Procedures EKG Details: Normal sinus rhythm at 78 beats per minute with left axis deviation, no acute ischemic changes, no ST elevations or ST-T wave changes [id number], Complete Assessment & Plan Assessment & Plan (1) Dyspnea: Code(s): R06.00 - Dyspnea, unspecified Qualifiers: Dyspnea type: dyspnea on exertion Qualified Code(s): R06.09 - Other forms of dyspnea (2) Left leg swelling: Code(s): M79.89 - Other specified soft tissue disorders Plan This is a 59-year-old male with history of essential hypertension, hyperlipidemia, type 2 diabetes mellitus who presented to the walk-in clinic complaining of left lower extremity swelling and mild dyspnea with exertion x1 week. The patient had been evaluated as pulmonology office 1 week ago who recommended cardiology workup although this has not been done as of yet. Patient called his primary care physician as well as his chief construction inspector who recommended he present to the walk-in clinic for an ultrasound to rule out DVT. I did explain to the patient that there is also concern for pulmonary embolism given his shortness of breath and this can not be ruled out at the walk-in clinic. Patient would prefer to have the ultrasound done here. The patient is not tachycardic or hypoxic at this time. His lungs are clear to auscultation bilaterally. A two-view chest x-ray was obtained at the walk-in clinic, which shows some possible atelectasis but otherwise negative for acute cardiopulmonary process. An ultrasound venous duplex of left lower extremity obtained to rule out deep vein thrombosis. If positive, patient will require emergency room evaluation to rule out pulmonary embolism and the patient was made aware of this. I did encourage the patient to proceed directly to the emergency room so he can have the ultrasound and CTA at the same time; however, patient again would prefer to start with the ultrasound and only proceed to the ER if necessary. Orders: Orders XR chest 2V Today R06.02 - Shortness of breath US venous duplex LE LT Today M79.89 - Other specified soft tissue disorders AMB EKG-In Office Today R06.02 - Shortness of breath Coding Level of Care Code Est Pt Level 3 (27094) Diagnoses Dyspnea on exertion R06.09 Dyspnea type: dyspnea on exertion Left leg swelling M79.89 CPT Codes EKG - CPT: 23901-[id number], Complete ([id number])
[2024-05-09 08:26] VITALS: BP 122/80; PULSE 79; O2SAT 98; BMI 37.6
== END 2024-05-09 09:15 | disposition home or self-care (01) ==
PROVIDERS: PCP Physician Assistant; Visit Provider Physician Assistant Medical
DX: R06.09 Other forms of dyspnea (principal); M79.89 Other specified soft tissue disorders

== ENCOUNTER → 2024-05-09 08:18 | Outpatient (BNVA) | payer OTHER, SELFPAY | PROVIDERS: PCP Physician Assistant; Visit Provider Physician Assistant Medical ==

== ENCOUNTER 2024-05-09 08:48 | Outpatient (REF) | payer OTHER, SELFPAY ==
--- NOTE | ~2024-05-09 | US_ITS ---
EXAMINATION: US TRIPLEX LOWER EXTREMITY, LEFT CLINICAL INFORMATION: Left lower extremity duplex COMPARISON: Left lower extremity duplex on 02/29/2020 TECHNIQUE: Color-flow triplex imaging with spectral analysis and compression Doppler were performed on the left lower extremity. FINDINGS: Respiratory variation, normal compression and augmented flow are noted throughout the left lower extremity. The visualized common femoral vein, superficial femoral vein, profunda femoral vein, popliteal vein and midcalf peroneal and posterior tibial venous segments show no evidence of deep venous thrombosis. There is no Ruffin's cyst. Left groin lymph node- prominent but stable. US/US venous duplex LE LT IMPRESSION: No evidence of deep venous thrombosis involving the left lower extremity. Electronically signed by: Shikha Haas MD 05/09/2024 10:54 AM EDT
--- NOTE | ~2024-05-09 | XR_ITS ---
EXAMINATION: XR CHEST CLINICAL INFORMATION: Shortness of breath. COMPARISON: CT chest dated 05/28/2019. TECHNIQUE: 2 views of the chest were obtained. FINDINGS: Hypoinflation of the lungs. No focal airspace consolidation. No pleural effusion or pneumothorax. Stable cardiomediastinal silhouette. XR/XR chest 2V IMPRESSION: Hypoinflation of the lungs without focal airspace consolidation. Electronically signed by: Travis Villarreal MD 05/09/2024 10:13 AM EDT
== END 2024-05-09 08:49 | disposition home or self-care (01) ==
LOC: HO.HMGCX 08:48
PROVIDERS: PCP Physician Assistant; Visit Provider Physician Assistant Medical
DX: R06.02 Shortness of breath (principal); M79.89 Other specified soft tissue disorders; R06.09 Other forms of dyspnea
CPT/HCPCS: 71046; 93005; 93971

== ENCOUNTER 2024-05-09 09:34 | Outpatient (REF) | payer OTHER, SELFPAY | END 2024-05-09 09:35 | disposition home or self-care (01) | LOC: HO.US 09:34 | PROVIDERS: PCP Physician Assistant; Visit Provider Physician Assistant Medical | DX: Z13.89 Encounter for screening for other disorder (principal) ==

== ENCOUNTER 2024-06-10 16:19 | Outpatient (REF) | payer OTHER, SELFPAY ==
--- NOTE | ~2024-06-10 | CT_ITS ---
EXAMINATION: CT LOW-DOSE SCREENING CHEST WITHOUT CONTRAST CLINICAL INFORMATION: Personal history of nicotine dependence. The patient has a 45 pack-year history of smoking, having quit 8 years ago. COMPARISON: X-ray chest 05/09/2024. CT chest 05/28/2019. TECHNIQUE: Multidetector volumetric CT imaging of the chest is performed on a Siemens SOMATOM Definition scanner without contrast using low dose technique. Additional 2D coronal and sagittal reformatted images and axial 3D maximum intensity projection (MIP) images are generated on the CT workstation. This CT examination was performed using dose optimization techniques as appropriate, variously including the following: *Automated exposure control *Adjustment of mA and/or kV according to patient size (this includes techniques or standardized protocols for targeted exams where dose is matched to indication/reason for exam; i.e. extremities or head) *Use of iterative reconstruction technique TOTAL EXAM DLP: 70 mGy-cm. CTDIvol: 2.35 mGy. FINDINGS: PULMONARY NODULES: -5 mm nodule anterolateral right upper lobe (series 5, image 140), possibly within a bronchus. -4 mm calcified granuloma abutting the anterior pleural surface right upper lobe (series 5, image 166). There are a few additional calcified granuloma in both lungs. Largest is in the right costophrenic sulcus medially. These are benign. -4 mm nodule superior segment right lower lobe, possibly within a bronchus (series 5, image 215). -2 mm nodule right middle lobe anteriorly (series 5, image 244). -5 mm average diameter nodule left upper lobe, lingular segment (series 5, image 224). -Average diameter is 6 mm nodule left costophrenic sulcus (series 5, image 331). LUNGS: -There is minimal centrilobular emphysema. -Lungs otherwise clear. Minor atelectasis or scarring in the inferior right middle lobe and lingula. Minor gravity dependent atelectasis lower lobes. -Small airways appear normal. -Central airways are patent. -No effusion or pneumothorax. No pleural abnormalities. MEDIASTINUM: -Normal thyroid. -No adenopathy. -Aorta demonstrates mild calcific atheromatous change without aneurysm. -Name pulmonary artery is normal in size. -Heart size is normal. No pericardial effusion. -Mild thickening of the mid and distal esophagus present suggesting possible esophagitis. GE junction is normal. CORONARY ARTERY CALCIFICATION: Mild to moderate calcification present, most significant RCA and LAD. CHEST WALL/AXILLA: Unremarkable. UPPER ABDOMEN: -There are granulomas in the spleen. -Remainder upper abdominal structures appear normal. OSSEOUS STRUCTURES: -No suspicious lytic or blastic bone lesions. -Mild degenerative spinal changes. CT/CT lung screening IMPRESSION: 1. Scattered pulmonary nodules measuring up to 6 mm in the left costophrenic sulcus. 2. Scattered calcified granuloma which are benign. 3. Mild centrilobular emphysema. No active lung disease seen. 4. Additional ancillary findings as discussed. ASSESSMENT: 1. Lung-RADS Category 3: Probably benign findings. Six-month follow-up CT recommended. If stable becomes Lung-RADS category 2. 2. Lung-RADS Category S: None. RECOMMENDATION: A 6-month follow up low-dose lung CT scan is recommended. An order for CT LUNG CANCER SCREENING SHORT INTERVAL FOLLOWUP ([id number]) can be placed. Electronically signed by: Obdulio Rodriguez MD 06/25/2024 09:18 AM MARISOL LARSON
== END 2024-06-10 16:20 | disposition home or self-care (01) ==
LOC: HO.CT 16:19
PROVIDERS: PCP Physician Assistant; Visit Provider Physician Assistant Medical
DX: Z12.2 Encounter for screening for malignant neoplasm of respiratory organs (principal); Z87.891 Personal history of nicotine dependence
CPT/HCPCS: 71271

== ENCOUNTER → 2024-06-10 16:20 | Outpatient (BNV) | payer OTHER, SELFPAY | PROVIDERS: PCP Physician Assistant; Visit Provider Radiology Diagnostic Radiology | DX: R91.8 Other nonspecific abnormal finding of lung field (principal); Z87.891 Personal history of nicotine dependence | CPT/HCPCS: 71271 ==

== ENCOUNTER 2024-07-02 13:57 | Outpatient (AMB) | payer OTHER, SELFPAY ==
--- OUTSIDE RECORDS SUMMARY | 2024-07-02 14:00 | XMS_ITS ---
Author Name [facility] Organization Unknown History of Medication Use Medication Directions Dispensed Refills Start Date End Date Stat sildenafil (VIAGRA) 50 MG tablet Take 1 tablet (50 mg total) by mouth daily as needed for erectile dysfunction. 12/14/2022 active buPROPion (WELLBUTRIN XL) 300 MG 24 hr tablet TAKE 1 TABLET (300 MG TOTAL) BY MOUTH EVERY MORNING. SWALLOW WHOLE DO NOT CRUSH, CHEW, OR DIVIDE. 12/14/2022 aborted losartan (COZAAR) 50 MG tablet TAKE 1 TABLET BY MOUTH EVERY DAY 12/14/2022 active diclofenac enteric coated (VOLTAREN) 75 MG EC tablet Take 1 tablet (75 mg total) by mouth 2 (two) times a day. 12/14/2022 active sildenafil (VIAGRA) 50 MG tablet TAKE 1 TABLET BY MOUTH DAILY NEEDED FOR ERECTILE DYSFUNCTION 04/21/2023 active amoxicillin-clavulana te (AUGMENTIN) 875-125 MG per tablet Take 1 tablet by mouth 2 (two) times a day. 04/21/2023 active LORazepam (ATIVAN) 2 MG tablet TAKE 1 TABLET BY MOUTH AT 8PM FOR SLEEP. THEN TAKE A SECOND TABLET NEEDED UPON AWAKENING AT 1AM 12/14/2022 active metFORMIN (GLUCOPHAGE) 500 MG tablet TAKE 1 TABLET BY MOUTH TWICE A DAY WITH MEALS 12/14/2022 active mometasone (ELOCON) 0.1 % lotion APPLY TO AFFECTED AREAS ON SCALP TWICE DAILY FOR 2 WEEKS, BREAK 1 WEEK AND REPEAT NEEDED 12/14/2022 active losartan (COZAAR) 50 MG tablet Take 1 tablet (50 mg total) by mouth daily. 04/21/2023 active simvastatin (ZOCOR) 80 MG tablet TAKE 1 TABLET BY MOUTH EVERY DAY EVERY NIGHT 12/14/2022 active calcium gluconate 9.3 mg/mL Ca++ Take 1 capsule by mouth daily. 04/21/2023 active chlorthalidone (HYGROTON) 25 MG tablet Take 1 tablet (25 mg total) by mouth daily. 12/14/2022 active Problems Problem Status Onset Date Problem Type Date of Resoluti on Source BMI 36.0-36.9,adult active 2022-06-09 [facility] Type 2 diabetes mellitus without complication, without long-term current use of insulin active 2022-06-09 ProblemAct [facility] Erectile dysfunction active 2021-07-18 ProblemAct [facility] Lung nodule active 2019-05-21 ProblemAct [facility] Insomnia active 2019-04-07 ProblemAct [facility] Lumbar radiculopathy active 2020-08-23 ProblemAct [facility] Nocturia active 2021-06-08 ProblemAct [facility] Elevated serum creatinine active 2022-06-09 ProblemAct [facility] Hypertension active 2021-06-08 ProblemAct [facility] ТАТЬЯНА (obstructive sleep apnea) active 2019-03-13 ProblemAct [facility] Chronic pain of left knee active 2019-04-07 ProblemAct [facility] COPD (chronic obstructive pulmonary disease) active 2019-05-21 [facility] Immun[facility] Vaccine Date Source Lot Number Status Influenza (AFLURIA/FLUZONE) Inactivated/Split Quadrivalent with Preservative IM 03/19/2012 [facility] [id number] completed Covid-19 MRNA Vaccine - Pfiz er 12+ (Purple Cap) 09/29/2020 [facility] [id number] completed Covid-19 MRNA Vaccine - Pfiz er 12+ (Purple Cap) 10/20/2020 [facility] [id number] completed Tdap 03/31/2008 [facility] completed Covid-19 MRNA Vaccine - Pfiz er 12+ (Purple Cap) 07/18/2021 [facility] [id number] completed Influenza Inactivated/Split Preservative Free IM 07/18/2021 [facility] [id number] completed
[2024-07-02 14:24] VITALS: BP 146/88; PULSE 84; O2SAT 97; BMI 37.0
--- NOTE | 2024-07-02 14:24 | MHC.PC.OV ---
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 Required: No Accompanied by: Self / Same As Patient Allergies No Known Allergies [No Known Allergies*] Allergy (Verified 07/02/24 14:34) Medication List - Last Reconciled 07/02/24 by Jas Byrd PA-C bupropion HCl XL 150 mg PO BEDTIME buspirone 5 mg PO BID 30 days chlorthalidone 25 mg PO BEDTIME 90 days CPAP (CPAP Machine/Device) As directed fluticasone propionate 50 mcg/actuation 2 sprays intranasal DAILY 30 days hydroxyzine HCl 25 mg PO BEDTIME 30 days lorazepam 0.5 mg PO BID 30 days losartan 50 mg PO BEDTIME meloxicam 15 mg PO DAILY PRN metformin 500 mg PO DAILY semaglutide (Ozempic) 0.5 mg (0.736 mL) subcut QWEEK 4 weeks sildenafil 50 mg PO DAILY PRN simvastatin 80 mg PO BEDTIME trazodone 50 mg PO BEDTIME 90 days Tobacco use date assessed: 08/14/23 Dental Screening Dental Screen Date: 09/26/23 HPI Follow-up labs, hypertension HPI Details Patient is a 59-year-old male here today for a follow-up visit Patient has a past medical history significant for hypertension, hyperlipidemia, diverticulosis ТАТЬЯНА type 2 diabetes. Recently got low-dose CT scan of chest is which did show multiple nodules. Repeat CT recommended in 6 months. .. Anxiety: Has drastically reduce the amount of lorazepam using. Has tried buspirone 5 mg b.i.d. though had side effect of sleeping disturbance. He would like to return back to trazodone 50 mg which had helped him with his sleep in the past. .. Type 2 diabetes: Patient continues on metformin 500 b.i.d.. Today's A1c is 7.5. Will increase his Ozempic dose to 1 mg weekly for better glycemic control. Noted microalbuminuria- will follow in 6 months. Most recent labs do show a small increase in his creatinine. .. Hypertension: Patient's blood pressure acceptable today in office. Continues on losartan 50 mg daily. Has return back to using chlorthalidone and reports his blood pressures have been better. .. Obesity: He has unfortunately gained weight since last office visit. He is not on a vegetarian diet anymore. He does understand he needs to work on lifestyle modifications to reduce his weight. [facility] Medical History (Updated 07/02/24 @ 14:53 by Jas Byrd PA-C) Lower extremity edema Dyspnea ТАТЬЯНА (obstructive sleep apnea) Pulmonary nodules Obese Personal history of nicotine dependence Erectile dysfunction HLD (hyperlipidemia) Type 2 diabetes mellitus HTN (hypertension) Acute diverticulitis Surgical History History of repair of right rotator cuff History of left knee surgery History of colonoscopy Family History Mother Lung cancer Father Diabetes Bladder cancer Heart attack Brother Hypertension Diabetes Maternal Grandmother Hypertension Arthritis Maternal Aunt Family history of malignant neoplasm of female breast Social History Household Members: Family Housing: House Do you presently have visiting nurse or other home services: No Alcohol intake: never Patient Tobacco Use Status: Former Tobacco user Years Smoked: (onset 16yo, 1.5ppd x 35yrs, 50pyh, quit 2015) e-Cigarette/Vaping Use: Never Used service: No Current occupational status: employed Cognitive needs: No Hearing needs: No Vision needs: Yes Questionnaire Thrive Questionnaire Date Thrive assessed: 08/14/23 Are you currently unemployed and looking for a job?: No AUDIT C Alcohol Use Questionnaire (AUDIT-C) 2. How many drinks containing alcohol do you have on a typical day when you are drinking?: 1 or 2 3. How often do you have six or more drinks on one occasion?: Never Total Score: 0 ELIJAH-7 AMB Questionnaire ELIJAH-7 Date ELIJAH - 7 assessed: 08/14/23 Source: Developed by Drs. Hoang Sheffield, Samantha Barreto, Ben Niño and colleagues, with an educational salomon from [employer]. Review of Systems Const Denies headache(s) Eyes Denies loss of vision ENT Denies vertigo, Denies dizziness, Denies headache(s) and Denies sore throat Card Denies chest pain, Denies leg edema and Denies lightheadedness Resp Denies cough, Denies hemoptysis and Denies wheezing GI Denies abdominal pain, Denies melena, Denies constipation, Denies diarrhea and Denies vomiting Denies dysuria, Denies urinary frequency and Denies urinary urgency Musc Denies arthralgias, Denies joint swelling, Denies numbness and Denies tingling Neuro Denies Abnormal speech present, Denies behavioral changes, Denies vertigo, Denies dizziness, Denies headache(s), Denies loss of vision, Denies memory loss, Denies numbness and Denies tingling Psych Denies anxiety, Denies behavioral changes, Denies depression, Denies memory loss and Denies panic attacks Awais/Lymph Denies easy bleeding and Denies easy bruising Aller/Immun Denies wheezing Physical exam (Primary Care) Vital Signs: Last Vital Signs Pulse 84 07/02/24 14:24 BP 146/88 H 07/02/24 14:24 Pulse Ox 97 07/02/24 14:24 Oxygen Delivery Method Room Air 07/02/24 14:24 BMI result Body Mass Index 37.0 BMI Assessment/Plan discussion: High BMI High, discussed plan: lifestyle, weight reduction, dietary and physical activity Tobacco/Smoking Status: Tobacco use Status Tobacco use date assessed 08/14/23 07/02/24 14:26 Patient Tobacco Use Status Former Tobacco user 07/02/24 14:26 Tobacco use type 05/01/24 10:06 e-Cigarette/Vaping Use Never Used 07/02/24 14:26 Thrive Assessment: Date of Thrive Assessment Date Thrive assessed 08/14/23 07/02/24 14:26 Const General: healthy appearing, no acute distress, alert and awake Nutritional Appearance: well nourished Orientation/consciousness: oriented to person, oriented to place and oriented to time HENMT Ears: TM's normal bilaterally General nose exam: Normal nasal mucous membranes and turbinates present Eyes Conjunctivae: conjunctivae normal Sclerae: sclerae normal Pupils: Equal, round and reactive pupils present Neck Neck: Yes no lymphadenopathy and Yes no JVD Thyroid: Thyroid normal Carotids: no bruits Resp Effort & Inspection: normal respiratory effort and not tachypneic Auscultation: no crackles, no rales, no rhonchi and no wheezes Cardio Rate: regular rate Rhythm: regular rhythm Heart sounds: no murmurs and normal S1 and S2 GI Palpation (GI): Soft to palpation, nontender, no hepatomegaly and no splenomegaly Auscultation: normal bowel sounds Skin General skin exam: no rashes or lesions noted and dry skin Neuro General: oriented to person, oriented to place and oriented to time Cranial nerves: Yes Equal, round and reactive pupils present Speech: No Abnormal speech present Gait exam (Neuro): Normal gait present Motor exam (neuro): no tremor noted Extrem Right upper extremity: full ROM Left upper extremity: full ROM Right lower extremity: full ROM; no edema Left lower extremity: full ROM; no edema Psych Mental Status: mental status grossly normal Speech and movement: Normal speech and movement present Affect: normal affect Attitude: cooperative Thought process: Normal thought process present Office Procedures Flu Questionnaire Does the patient have a severe egg allergy?: No Does the patient have severe life threatening allergies?: No Does the patient have a fever or illness today?: No Has the patient ever had Guillain-[place] Syndrome?: No Has the patient ever had any past reaction to a flu shot?: No Results AMB Hemoglobin A1c AMB Hemoglobin A1c 7.5 % Last Edit by ALEX Patterson on 07/02/24 15:20 Immunizations Fluarix Triv [id number] (PF) 45 mcg (15 mcg x 3)/0.5 mL IM syringe Performing Provider: Jas Byrd PA-C [facility] Administered by: ALEX Patterson on 07/02/24 14:33 Dose Route Admin Location Dispensed Lot Number Expiration Date [facility] Valve Tester 0.5 mL IM Left Deltoid 0.5 mL [id number] 01/12/25 [id number] [facility] VIS Given Date VIS Provided VIS Publication Date 07/02/24 Single Vaccine 21 Eligibility Eligibility Date Funding Source Not [facility] Eligible 07/02/24 Private Coding Level of Care Code Est Pt Level 4 (44801) Diagnoses Type 2 diabetes mellitus with hyperglycemia, without long-term current use of insulin E11.65 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 insulin use: without [place] use Diabetes mellitus complication status: with hyperglycemia Gastroesophageal reflux disease without esophagitis K21.9 Esophagitis presence: without esophagitis Mixed hyperlipidemia E78.2 Hyperlipidemia type: mixed hyperlipidemia Primary hypertension I10 Hypertension type: primary hypertension Class 2 obesity E66.812 ELIJAH (generalized anxiety disorder) F41.1 Assessment & Plan Assessment & Plan (1) Type 2 diabetes mellitus: Code(s): E11.9 - Type 2 diabetes mellitus without complications Category: Medical Qualifiers: 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 insulin use: without [place] [facility] use Diabetes mellitus complication status: with hyperglycemia Qualified Code(s): E11.65 - Type 2 diabetes mellitus with hyperglycemia Plan: Patient's type 2 diabetes suboptimally controlled with an A1c today is 7.5. Will increase his Ozempic dose to 1 mg weekly for better glycemic control and more weight loss. Goal A1c is to be below 7.0 (2) GERD (gastroesophageal reflux disease): Code(s): K21.9 - Gastro-esophageal reflux disease without esophagitis Category: Medical Qualifiers: Esophagitis presence: without esophagitis Qualified Code(s): K21.9 - Gastro-esophageal reflux disease without esophagitis Plan: Patient reports having GERD symptoms as of late. Will supply patient with a omeprazole to use on a daily/ p.r.n. basis. (3) HLD (hyperlipidemia): Code(s): E78.5 - Hyperlipidemia, unspecified Category: Medical Qualifiers: Hyperlipidemia type: mixed hyperlipidemia Qualified Code(s): E78.2 - Mixed hyperlipidemia Plan: Patient's most recent lipid panel showing elevated total cholesterol and LDL. Patient continues on high dose statin. He will continue working on lifestyle and dietary modifications. Goal LDL to be below 100 (4) HTN (hypertension): Code(s): I10 - Essential (primary) hypertension Category: Medical Qualifiers: Hypertension type: primary hypertension Qualified Code(s): I10 - Essential (primary) hypertension Plan: Patient's blood pressure acceptable today in office. Will continue him on his current dose of losartan and chlorthalidone. Goal blood pressures to remain below 140/90 (5) Class 2 obesity: Code(s): E66.812 - Obesity, class 2 Category: Medical Plan: Patient does understand his BMI is over 35 and will work on being more physically active and adapting to better eating habits to reduce his weight (6) ELIJAH (generalized anxiety disorder): Code(s): F41.1 - Generalized anxiety disorder Category: Medical Plan: Patient reports his anxiety has been fairly well controlled though still from time to time has several sleeping. Will like to return back to using trazodone 50 mg before bed. He is drastically reduced the amount of benzodiazepine he was using though still will like to have lorazepam on hand . Orders: Orders Influenza [id number] Immunization Today Z23 - Encounter for immunization AMB Hemoglobin A1c Today E11.65 - Type 2 diabetes mellitus with hyperglycemia Medications: New omeprazole 20 mg PO DAILY 90 days 90 caps 1RF K21.9 - Gastro-esophageal reflux disease without esophagitis semaglutide (Ozempic) 1 mg (0.75 mL) subcut QWEEK 4 weeks 3 mL 1RF E11.65 - Type 2 diabetes mellitus with hyperglycemia Refilled lorazepam 0.5 mg PO BID 30 days 60 tabs 1RF anxiety F41.1 - Generalized anxiety disorder Discontinued buspirone Discontinued Reason: Doctor's Order 5 mg PO BID 30 days 60 tabs 3RF F41.1 - Generalized anxiety disorder On Hold semaglutide (Ozempic) Hold Comment: Doctor's Order 0.5 mg (0.736 mL) subcut QWEEK 4 weeks 3 mL 3RF E11.65 - Type 2 diabetes mellitus with hyperglycemia Resumed trazodone 50 mg PO BEDTIME 90 days 90 tabs 1RF F51.01 - Primary insomnia trazodone 50 mg PO BEDTIME 90 days 90 tabs 1RF F51.01 - Primary insomnia
[2024-07-02 14:43] VITALS: BP 136/80
== END 2024-07-02 14:52 | disposition home or self-care (01) ==
PROVIDERS: PCP Physician Assistant; Visit Provider Physician Assistant
DX: E11.65 Type 2 diabetes mellitus with hyperglycemia (principal); K21.9 Gastro-esophageal reflux disease without esophagitis; E66.812 Obesity, class 2; Z68.37 Body mass index [BMI] 37.0-37.9, adult; F41.1 Generalized anxiety disorder; E78.2 Mixed hyperlipidemia; I10 Essential (primary) hypertension; Z23 Encounter for immunization

== ENCOUNTER → 2024-07-02 13:57 | Outpatient (BNVA) | payer OTHER, SELFPAY | PROVIDERS: PCP Physician Assistant; Visit Provider Physician Assistant | DX: I10 Essential (primary) hypertension (principal); E11.65 Type 2 diabetes mellitus with hyperglycemia; K21.9 Gastro-esophageal reflux disease without esophagitis; E78.2 Mixed hyperlipidemia; E66.812 Obesity, class 2; Z68.37 Body mass index [BMI] 37.0-37.9, adult; F41.1 Generalized anxiety disorder; Z23 Encounter for immunization; G47.33 Obstructive sleep apnea (adult) (pediatric); R91.8 Other nonspecific abnormal finding of lung field; Z79.84 Long term (current) use of oral hypoglycemic drugs; Z79.899 Other long term (current) drug therapy | CPT/HCPCS: 83036; 90471; 90656 ==

== ENCOUNTER 2024-09-02 08:28 | Outpatient (AMB) | payer OTHER, SELFPAY ==
[2024-09-02 08:34] VITALS: BP 108/70; PULSE 84; O2SAT 97; BMI 38.0
--- NOTE | 2024-09-02 08:34 | A.OFFVIS_ITS ---
Vital Signs 09/02/24 08:34 Height 5 ft 7 in Weight 242 lb 8.136 oz BMI 38.0 BP 108/70 Blood Pressure Location Rt brachial Position Sitting Pulse 84 Pulse Source Pulse Oximeter Pulse Oximetry (%) 97 Oxygen Delivery Method Room Air Intake Visit Reasons: татьяна Allergies No Known Allergies [No Known Allergies*] Allergy (Verified 09/02/24 08:36) HPI Comments Details: The patient is a 59-year-old gentleman former smoker who presents for evaluation of underlying pulmonary nodules and sleep apnea. Apparently the patient quit smoking many years ago. He has been taking part in the lung cancer screening program. Initially started at [facility] and then ultimately moved to [facility]. We did look at his CT scan from 2021 and also from [facility] April 2023. He does have multiple pulmonary nodules some that I calcified. The largest nodule measuring 67 mm in size appears to be a granuloma. He also has granulomas in the spleen. He does have a history of living in [place] and therefore is at risk for endemic fungal infections such as histoplasmosis. He also should get tested for tuberculosis. The patient is doing well denies any respiratory complaints. He does not use any inhalers. The patient does have daytime drowsiness. He was diagnosed sleep apnea in the past and had a CPAP machine that he has not difficulty with. Therefore he stopped using it. Subsequently after that he has had some weight loss after lifestyle changes. He is lost about 10 lb. He also underwent shoulder surgery and has been sleeping on his side and avoiding sleeping on his back because of the shoulder discomfort and has also been helping his snoring. Although, he still wakes up tired and he still wakes up snoring and his [place] score is elevated 10/24. Therefore, we did talk about different alternative therapy such as mandibular device positional therapy but at the end he does need to have a sleep study. We have him get a home sleep study at this time. The patient also undergo blood work to assess for histoplasmosis serology and also T spot. As far as his CT scans he is scheduled to the lung cancer screening program at [facility] would wishes to move it to [facility]. Therefore refer him to the lung cancer screening program here at [facility] in order for him to get the CT scan next at our facility. 11/15/2023 the patient is here for a pulmonary follow-up visit. He continues to have daytime drowsiness. His [place] score still elevated 11/24. The patient did have a sleep study done which we reviewed in the office. His AHI is about 15 he did desaturate down to 77%. In addition to that he had episodes of tachycardia. The patient definitely needs to start CPAP therapy as soon as possible. Will go ahead and arranged with local [employer] company. In the meantime the patient did have his blood work done is T spot was negative and also the histoplasmosis serology was negative for any exposure. Therefore the etiology of the pulmonary nodules at this point is unclear. He will continue participating in the lung cancer screening program. His next CT scans going to be April 2024. the patient does have some mild crackles on examination primarily at the bases. Looking at the imaging studies last CT scan did have some slight atelectasis at the bases likely corresponding to the findings. Will plan to follow-up in 4 months. The patient will start using CPAP if he has any difficulties with the he will call for an earlier assessment. 02/01/2024 the patient is here for a pulmonary follow-up visit. He still struggling with the CPAP some. He does want to use it he does feel better when he uses it. But he struggles with the pressure. He did try different mask currently has an N30 I mask. He feels like it fits better and he can sleep more comfortably with it. Although he has a significant air leakage because of the mouth being open. We did talk about chinstrap. I will order 1 from the [employer]. May also consider buying 1. The patient will start using it regularly. If he can not get used to the chinstrap that he may need to consider other alternatives such as mouth tape or just going back to the fullface mask. He did very well with a fullface mask as far as the pressures he has needed a pressure of 8-9 cm where with the nasal mask he needs a pressure of 12 cm. Likely from opening his mouth. The patient will be switched over to just a CPAP setting of 9 cm to minimize on the pressure and he will try this setting. He will call me a week or 2 to adjust the pressures accordingly. As far as his CT scan he is due for CAT scan soon. He is participating in the lung cancer screening program will arrange that for him. His respiratory exam is better he did have some crackles before but I do not appreciate any at this time. 05/01/2024 the patient is here for a pulmonary follow-up visit. He has been having issues with CPAP. He has been having hard time using specially since she had a sick family member. His dog is been sick with seizures. Been keeping him up at nighttime. Hopefully we can start using the CPAP soon. He has been noticing some increased weight gain to increased daytime drowsiness with an [place] elevated [place] score of 12/24. In addition to that he has been noticing increasing tachycardia and lower extremity edema. This left lower ex tremity also has some area of tenderness over the medial lower part of the ankle. He does have some pitting edema. He has not had a cardiac workup in some time. The patient does take cardioprotective medications. I explained to him the importance of using CPAP specially if there is a cardiac issue going on. He is going to start using it. In addition to that he is waiting for the lung cancer screening CT scan. Scheduled for April. He has a 0.5 cm pulmonary nodule that needs follow-up. Will again call his insurance company to make sure his approve in order to order it. Once he gets it done will compare. The patient also has been developing shortness of breath with activity. Moderate severity. Will plan to do pulmonary function studies prior to the next visit. In addition to that the patient is going to work on weight management. And again the cardiac workup would be helpful. 09/02/2024 the patient is here for a pulmonary follow-up visit. Overall he is doing okay. He has not been able to tolerate CPAP and actually returned it. He can not tolerate multiple masks and he just can not get used to it. He is trying positional therapy. We did talk about oral mandibular device. He is going to talk to his dentist. In the meantime we did repeat his sleep study and he did have significant hypoxia. Once he continues to lose weight and considers different alternative therapies for sleep apnea we can consider perform an overnight oximetry to make sure that he is not as hypoxic. Patient already has significant cardiovascular risk factors with diabetes and hypertension. The patient also had a CT scan of the chest to the lung cancer screening program. He had multiple pulmonary nodules. Largest 1 6 mm in size. It was consider rests 3 is going to have a CT scan sometime in September. He is also scheduled for PFTs coming up. The patient quit smoking which is reassuring. He is going to work on lifestyle changes. Will follow-up in 6 months. If any issues arise prior to that he will call for an earlier assessment. For [facility] Medical History (Updated 07/02/24 @ 14:53 by Jas Byrd PA-C) Lower extremity edema Dyspnea ТАТЬЯНА (obstructive sleep apnea) Pulmonary nodules Obese Personal history of nicotine dependence Erectile dysfunction HLD (hyperlipidemia) Type 2 diabetes mellitus HTN (hypertension) Acute diverticulitis Surgical History History of repair of right rotator cuff History of left knee surgery History of colonoscopy Family History Mother Lung cancer Father Diabetes Bladder cancer Heart attack Brother Hypertension Diabetes Maternal Grandmother Hypertension Arthritis Maternal Aunt Family history of malignant neoplasm of female breast Social History Household Members: Family Housing: House Do you presently have visiting nurse or other home services: No Alcohol intake: never Patient Tobacco Use Status: Former Tobacco user Years Smoked: (onset 16yo, 1.5ppd x 35yrs, 50pyh, quit 2015) e-Cigarette/Vaping Use: Never Used service: No Current occupational status: employed Cognitive needs: No Hearing needs: No Vision needs: Yes Review of Systems Const Reports daytime sleepiness, Reports snoring and Reports weight gain ENT Denies nasal congestion Card Denies chest pain Resp Reports snoring and Denies wheezing GI Reports no additional complaints Musc Reports no additional complaints Skin/Breast Denies rash Neuro Reports no additional complaints Endo Reports no additional complaints Awais/Lymph Denies lymphadenopathy Aller/Immun Denies wheezing Physical Exam Vital Signs: Last Vital Signs Pulse 84 09/02/24 08:34 BP 108/70 09/02/24 08:34 Pulse Ox 97 09/02/24 08:34 Oxygen Delivery Method Room Air 09/02/24 08:34 BMI result Body Mass Index 38.0 Const General: comfortable HEENT Head: Yes normocephalic Neck Neck: Yes supple Chest Chest palpation & inspection: normal inspection of the chest Resp Effort & Inspection: normal respiratory effort Auscultation: clear to auscultation bilaterally and no rales Cardio Heart sounds: S1 normal heart sound present and S2 normal heart sound present GI Palpation (GI): Soft to palpation Skin General skin exam: no rashes or lesions noted Extrem General: Yes no clubbing, cyanosis or edema Assessment & Plan Assessment & Plan (1) Pulmonary nodule: Comment: (calcified and non calcified nodules; former smoker +family hx lung ca mom) Code(s): R91.1 - Solitary pulmonary nodule Category: Medical (2) ТАТЬЯНА (obstructive sleep apnea): Comment: (not tolerating CPAP) Code(s): G47.33 - Obstructive sleep apnea (adult) (pediatric) Category: Medical (3) Screening for lung cancer: Code(s): Z12.2 - Encounter for screening for malignant neoplasm of respiratory organs Category: Medical (4) Dyspnea: Code(s): R06.00 - Dyspnea, unspecified Category: Medical Qualifiers: Dyspnea type: dyspnea on exertion Qualified Code(s): R06.09 - Other forms of dyspnea Plan stopped APAP, positoinal therapy consider repeating overnight oximetry in the future LDCT at [facility] [place], CT chest in the Spring 2024 F/U 4-6 months Coding Level of Care Code Est Pt Level 4 (81329) Diagnoses Pulmonary nodule R91.1 ТАТЬЯНА (obstructive sleep apnea) G47.33 Screening for lung cancer Z12.2 Dyspnea on exertion R06.09 Dyspnea type: dyspnea on exertion Time Spent (min) 16
--- OUTSIDE RECORDS SUMMARY | 2024-09-02 08:47 | XMS_ITS | Encounter Summary ---
Author Organization [facility] Address [address] [place] [address] Care Team Providers Care Media Developer Name Role Phone Orlin Chambers MD Primary Care Provider [phone] Encounter Details Date Type Department Care Team (Late st Contact Info) Description 09/05/2022 Scanned Document [facility] 10 100 [facility] 203 [place] [address] Orlin Chambers MD 100 [facility] 203 [place] [address] Social History Tobacco Use Types Packs/Day Years Used Date Smoking Tobacco: Former Cigarettes 1.5 30 0 04/06/1985 - 04/06/2015 Smokeless Tobacco: Never Alcohol Use Standard Drinks/Week Comments Not Currently 0 (1 standard drink = 0.6 oz pur e alcohol) Sex and Gender Information Value Date Recorded Sex Assigned at Not on file Gender Identity Male 06/07/2021 6:00 PM EST Sexual Orientation Homosexual (lesbian or chopra) 0 07/17/2021 6:18 PM EST documented as of this encounter Plan of Treatment Not on file documented as of this encounter Visit Diagnoses Not on filedocumented in this encounter Care Teams Media Developer Relationship Specialty Start Date End Date Orlin Chambers MD [address] [address] PCP - General Family Medicine 01/29/19 08/16/23 Juma Harrington [facility] Pulmonary Medicine 11/23/21 documented as of this encounter
--- OUTSIDE RECORDS SUMMARY | 2024-09-02 08:47 | XMS_ITS | Encounter Summary ---
Author Organization [facility] Address [address] [place] [address] Care Team Providers Care Inspector [employer] Name Role Phone Orlin Chambers MD Primary Care Provider [phone] Reason for Visit * Reason Comments Medication Refill Encounter Details Date Type Department Care Team (Late st Contact Info) Description 04/10/2023 Refill [facility] [address] [address] Orlin Chambers MD 100 [facility] 203 [place] [address] Insomnia, unspecified type Social History Tobacco Use Types Packs/Day Years [...] documented as of this encounter Visit Diagnoses Diagnosis Insomnia, unspecified type documented in this encounter Care Teams Inspector [employer] Relationship Specialty Start Date End Date Orlin Chambers MD 100 [place] [address] PCP - General Family Medicine 01/29/19 08/16/23 Juma Harrington [facility] Pulmonary Medicine 11/23/21 documented as of this encounter
--- OUTSIDE RECORDS SUMMARY | 2024-09-02 08:47 | XMS_ITS | Encounter Summary ---
Author Organization [facility] Address [address] [place] [address] Care Team Providers Care Instruments Sales Representative Name Role Phone Orlin Chambers MD Primary Care Provider Encounter Details Date Type Department Care Team (Late st Contact Info) Description 10/06/2022 Scanned Document [facility] [address] [place] [address] [facility] [address] [address] Social History Tobacco Use Types Packs/Day Years [...] on filedocumented in this encounter Care Teams Instruments Sales Representative Relationship Specialty Start Date End Date Orlin Chambers MD [address] [address] PCP - General Family Medicine 01/29/19 08/16/23 Juma Harrington [facility] Pulmonary Medicine 11/23/21 documented as of this encounter
--- OUTSIDE RECORDS SUMMARY | 2024-09-02 08:47 | XMS_ITS | Encounter Summary ---
Author Organization [facility] Address [address] [place] [address] Care Team Providers Care Teletype Telegrapher Name Role Phone Orlin Chambers MD Primary Care Provider [phone] Encounter Details Date Type Department Care Team (Late st Contact Info) Description 02/27/2023 Scanned Document [facility] EMERGENCY MED SCAN Emergency Medicine, Scan Social History Tobacco Use Types Packs/Day Years [...] on filedocumented in this encounter Care Teams Teletype Telegrapher Relationship Specialty Start Date End Date Orlin Chambers MD [address] [place] [address] PCP - General Family Medicine 01/29/19 08/16/23 Juma Harrington [facility] Pulmonary Medicine 11/23/21 documented as of this encounter
--- OUTSIDE RECORDS SUMMARY | 2024-09-02 08:47 | XMS_ITS | Encounter Summary ---
Author Organization [facility] Address [address] [place] [address] Care Team Providers Care Locate Technician Name Role Phone Orlin Chambers MD Primary Care Provider [phone] Reason for Visit * Reason Onset Date Comments Medication Refill 04/12/2023 Encounter Details Date Type Department Care Team (Late st Contact Info) Description 04/12/2023 Refill [facility] [address] [place] [address] 203 [place] [address] Orlin Chambers MD 100 [facility] Liam 203 [place], [place] [phone] Insomnia, unspecified type Social History Tobacco Use [...] type documented in this encounter Care Teams Locate Technician Relationship Specialty Start Date End Date Orlin Chambers MD 100 [place] [address] PCP - General Family Medicine 01/29/19 08/16/23 Juma Harrington [facility] Pulmonary Medicine 11/23/21 documented as of this encounter
--- OUTSIDE RECORDS SUMMARY | 2024-09-02 08:47 | XMS_ITS | Encounter Summary ---
Author Organization [facility] Address [address] [place] [address] Care Team Providers Care Dry Chain Operator Name Role Phone Orlin Chambers MD Primary Care Provider [phone] Reason for Visit * Reason Onset Date Comments Medication Refill 04/10/2023 Encounter Details Date Type Department Care Team (Late st Contact Info) Description 04/10/2023 Refill [facility] [address] [place] [address] 203 [place] [address] Orlin Chambers MD 100 [facility] Liam 203 [place], [place] [id number] Insomnia, unspecified type Social History Tobacco Use [...] type documented in this encounter Care Teams Dry Chain Operator Relationship Specialty Start Date End Date Orlin Chambers MD 100 [place] [address] PCP - General Family Medicine 01/29/19 08/16/23 Juma Harrington [facility] Pulmonary Medicine 11/23/21 documented as of this encounter
--- OUTSIDE RECORDS SUMMARY | 2024-09-02 08:47 | XMS_ITS | Encounter Summary ---
Author Organization [facility] Address [address] [place] [address] Care Team Providers Care Maintenance Clerk Name Role Phone Orlin Chambers MD Primary Care Provider Encounter Details Date Type Department Care Team (Late st Contact Info) Description 08/29/2022 Scanned Document [facility] ORTHO SURGERY SCAN [place], [facility] [address] [address] Social History Tobacco Use Types Packs/Day Years [...] on filedocumented in this encounter Care Teams Maintenance Clerk Relationship Specialty Start Date End Date Orlin Chambers MD [address] [place] [address] 203 [place] [address] PCP - General Family Medicine 01/29/19 08/16/23 Juma Harrington [facility] Pulmonary Medicine 11/23/21 documented as of this encounter
--- OUTSIDE RECORDS SUMMARY | 2024-09-02 08:47 | XMS_ITS | Encounter Summary ---
Author Organization [facility] Address [address] [place] [address] Care Team Providers Care Director Of Restaurant Name Role Phone Orlin Chambers MD Primary Care Provider Encounter Details Date Type Department Care Team (Late st Contact Info) Description 10/06/2022 Scanned Document [facility] ORTHO SURGERY SCAN [place], [facility] [address] [address] Social History Tobacco Use Types Packs/Day Years [...] on filedocumented in this encounter Care Teams Director Of Restaurant Relationship Specialty Start Date End Date Orlin Chambers MD [address] [place] [address] 203 [place] [address] PCP - General Family Medicine 01/29/19 08/16/23 Juma Harrington [facility] Pulmonary Medicine 11/23/21 documented as of this encounter
--- OUTSIDE RECORDS SUMMARY | 2024-09-02 08:47 | XMS_ITS | Encounter Summary ---
Author Organization [facility] Address [address] [place] [address] Care Team Providers Care Brass Instrument Repair Technician Name Role Phone Orlin Chambers MD Primary Care Provider [phone] Reason for Visit * Reason Comments Medication Refill Encounter Details Date Type Department Care Team (Late st Contact Info) Description 04/12/2023 Refill [facility] [address] [address] Orlin Chambers MD 100 [facility] Liam 203 [place] [address] Insomnia, unspecified type Social History Tobacco Use [...] type documented in this encounter Care Teams Brass Instrument Repair Technician Relationship Specialty Start Date End Date Orlin Chambers MD 100 [place] [address] PCP - General Family Medicine 01/29/19 08/16/23 Juma Harrington [facility] Pulmonary Medicine 11/23/21 documented as of this encounter
--- OUTSIDE RECORDS SUMMARY | 2024-09-02 08:47 | XMS_ITS | Encounter Summary ---
Author Organization [facility] Address [address] [place] [address] Care Team Providers Care Sales And Events Coordinator Name Role Phone Orlin Chambers MD Primary Care Provider Reason for Visit * Reason Comments Medication Refill Encounter Details Date Type Department Care Team (Late st Contact Info) Description 10/09/2022 Refill [facility] 10 100 [facility] [address] [place] [address] Anayeli Del Rosario APRN 100 [facility] Liam 203 [place], [place] [phone] Anxiety Social History Tobacco Use Types Packs/Day Years [...] as of this encounter Visit Diagnoses Diagnosis Anxiety Anxiety state, unspecified documented in this encounter Care Teams Sales And Events Coordinator Relationship Specialty Start Date End Date Orlin Chambers MD [address] [address] PCP - General Family Medicine 01/29/19 08/16/23 Juma Harrington [facility] Pulmonary Medicine 11/23/21 documented as of this encounter
--- OUTSIDE RECORDS SUMMARY | 2024-09-02 08:47 | XMS_ITS | Encounter Summary ---
Author Organization [facility] Address [address] [place] [address] Care Team Providers Care Clinical Systems Educator Name Role Phone Orlin Chambers MD Primary Care Provider [phone] Encounter Details Date Type Department Care Team (Late st Contact Info) Description 02/27/2023 Scanned Document [facility] EMERGENCY MED SCAN Emergency Medicine, Scan [...] on filedocumented in this encounter Care Teams Clinical Systems Educator Relationship Specialty Start Date End Date Orlin Chambers MD [address] [place] [address] PCP - General Family Medicine 01/29/19 08/16/23 Juma Harrington [facility] Pulmonary Medicine 11/23/21 documented as of this encounter
--- OUTSIDE RECORDS SUMMARY | 2024-09-02 08:48 | XMS_ITS | Encounter Summary ---
Author Organization [facility] Address [address] [place] [address] Care Team Providers Care Plate Molder Name Role Phone Orlin Chambers MD Primary Care Provider Encounter Details Date Type Department Care Team (Late st Contact Info) Description 01/30/2023 Scanned Document [facility] ORTHO SURGERY SCAN [place], [facility] [address] [address] Social History Tobacco Use Types Packs/Day Years [...] on filedocumented in this encounter Care Teams Plate Molder Relationship Specialty Start Date End Date Orlin Chambers MD [address] [place] [address] 203 [place] [address] PCP - General Family Medicine 01/29/19 08/16/23 Juma Harrington [facility] Pulmonary Medicine 11/23/21 documented as of this encounter
--- OUTSIDE RECORDS SUMMARY | 2024-09-02 08:48 | XMS_ITS | Encounter Summary ---
Author Organization [facility] Address [address] [place] [id number] Care Team Providers Care One Piece Expansion Maker Hand Name Role Phone Orlin Chambers MD Primary Care Provider [phone] Reason for Visit * Reason Comments Medication Refill Encounter Details Date Type Department Care Team (Late st Contact Info) Description 09/12/[address] [facility] 10 100 [facility] [address] [place] [address] Anayeli Del Rosario, SYSTEMS ANALYST DEVELOPER 100 [facility] [address] [place], [place] [phone] Anxiety Social History Tobacco Use Types Packs/Day Years Used Date Smoking Tobacco: Never Smokeless Tobacco: Never Alcohol Use Standard Drinks/Week Comments Not Currently 0 (1 standard drink = 0.6 oz pur e alcohol) Sex and Gender Information Value Date Recorded Sex Assigned at Not on file Gender Identity Male 06/07/2021 6:00 PM EST Sexual Orientation Homosexual (lesbian or chopra) 0 07/17/2021 6:18 PM EST documented as of this encounter Miscellaneous Notes * Telephone Encounter - Sabine Garcia RN - 09/14/2019 2:48 PM EST already sent documented in this encounter Plan of Treatment Not on file documented as of this encounter Visit Diagnoses Diagnosis Anxiety Anxiety state, unspecified documented in this encounter Care Teams One Piece Expansion Maker Hand Relationship Specialty Start Date End Date Orlin Chambers MD [address] [id number] PCP - General Family Medicine 01/29/19 08/16/23 Juma Harrington [facility] Pulmonary Medicine 11/23/21 documented as of this encounter
--- OUTSIDE RECORDS SUMMARY | 2024-09-02 08:48 | XMS_ITS | Encounter Summary ---
Author Organization [facility] Address [address] [place] [id number] Care Team Providers Care Automatic Beam Warper Tender Name Role Phone Orlin Chambers MD Primary Care Provider Encounter Details Date Type Department Care Team (Late st Contact Info) Description 06/03/2019 Scanned Document [facility] [address] [address] Provider, Generic Social History Tobacco Use Types Packs/Day Years [...] on filedocumented in this encounter Care Teams Automatic Beam Warper Tender Relationship Specialty Start Date End Date Orlin Chambers MD 100 [facility] [address] [place], [place] [phone] PCP - General Family Medicine 01/29/19 08/16/23 Juma Harrington [facility] Pulmonary Medicine 11/23/21 documented as of this encounter
--- OUTSIDE RECORDS SUMMARY | 2024-09-02 08:48 | XMS_ITS | Data Portability ---
Author Organization [facility], Main Office Address [address] [place] [address] Care Team Providers Care Employment Recruiter Name Role Phone RYAN BUSTOS Primary Care Provider Assessment Encounter Date Assessment Date Assessment LastModified by Organization Details LastModified Time 05/12/2014 05/12/2014 Obesity and smoking remain most concerning risks.? ? ? phelmuth Not available 05/14/2014 19:51:49 08/25/2015 08/25/2015 Reviewed concerns about CV risk. will repeat labs as ordered and have him follow home BP. Return with BP readings in 3 mos.? ? ? phelmuth Not available 08/25/2015 21:59:58 Plan of Treatment Reminders Order Date Submit Date Provider Last Modified By Organization Details Last Modified Time Details Appointments None recor ded. Lab lipid panel , serum 2015 016 [email or web address] os Not available 6 16:16:21 BMP, serum or plasm a 2015 016 [email or web address] os Not available 6 16:16:21 HbA1c (hemo globi n A1c), blood 2015 016 [email or web address] os Not available 6 16:16:21 CBC w/ auto diff 2015 016 [email or web address] os Not available 6 16:16:21 CBC w/ auto diff 2014 015 phelmuth Not available 5 12:23:20 CMP, serum or plasm a 2014 015 phelmuth Not available 5 12:23:20 lipid panel , serum 2013 014 phelmuth Not available 4 19:52:00 ALT (harshad ine amino trans feras e), body fluid 2013 014 pheuth Not available 4 19:52:00 BMP, serum or plasm a 2013 014 [facility] Not available 4 19:52:00 Referral gastr marjorie fong ist refer ral 2015 016 jourdan [facility], [address] [place], [address], 6 11:02:[address]/di etiti an refer ral 2015 016 [facility] Not available 6 21:59:[address]/di etiti an refer ral 2013 014 [facility] Not available 4 19:52:00 Procedures colon oscop y scree farhana (PROC ) - Due for scree nign colon oscop y and has had diver tic x 2 in last 6 month s. 2014 [facility] [address] [place] [address], [address], 6 11:22:40 Surgeries None recor ded. Imaging elect arvin lópez am 2015 016 [facility] In-Office Order, Internal Use Only DO Not Attach Compendium DO Not Attach Compendium, Do Not Delete/merge, [id number] 6 21:59:57 Medication Orders bupro pion HCl XL 300 mg 24 hr table t, exten ded relea se 2015 016 [id number], [address] [facility], [place], [address], 6 21:59:58 omepr azole 20 mg table t,bryan ny relea se 2015 016 [id number], [address] [place], [address], 6 21:59:57 simva stati n 80 mg table t 2015 016 [id number], [address] [place], [address], 6 21:59:57 chlor thali done 25 mg table t 2015 016 [id number], [address] [place], [address], 6 21:59:57 Cipro 500 mg table t 2014 015 bsolivanmatt os [id number], [address] [place], [address], 6 09:13:40 metro nidaz ole 500 mg table t 2014 015 bsolivanmatt os [id number], [address] [place], [address], 6 09:13:40 Patient Targets Encounter Date Encounter Id Patient Goals Patient Target Last Modified By Organization Details Last Modified Time 05/12/2014 [id number] Ongoing of Microalbumin/Cr eatinine Ratio yearly Not available Not available Not available Ongoing of Blood Pressure 140 / 90 Not available Not available Not available Ongoing of Hemoglobin A1C 2 times per yr Not available Not available Not available Ongoing of Hemoglobin A1C <7 Not available Not available Not available Ongoing of LDL Direct < 100 Not available Not available Not available Pt advised and agrees to weekly aerobic exercise of 150 minutes to lower blood glucose, decrease carbohydrate intake to no more than 25 % of total carbs per day adopt the plate method of eating , and monitor blood glucose as directed Bring meter and/or readings to your appointments [facility] Not available 05/14/2014 19:51:49 08/25/2015 [id number] care home goal of Blood Pressure 140 / 90 Not available Not available Not available [employer] goal of Exercise level Not available Not available Not available care home goal of Tobacco Smoking Status Not available Not available Not available Pt advised and agrees to eat a low salt low fat diet; to do moderate exercise (such as walking) 150 minutes per week; to limit alcohol intake (goal of 2 drinks per day or less for men or 1 for woman). and to monitor dietary sodium. Will monitor home blood pressures and bring readings to appointments. [facility] Not available 08/25/2015 21:59:58 Patient Instructions Encounter Date Encounter Id Patient Instructions Last Modified By Organization Details Last Modified Time 05/12/2014 [id number] deciding about u sing medicines to quit smoking phelmuth Not available 05/14/2014 19:52:00 Quitting Tobacco : [facility] 05/14/2014 19:52:00 low back pain: exercises pheuth Not available 05/14/2014 19:52:00 exercise program : getting started pheuth Not available 05/14/2014 19:52:00 high blood press ure: care instructions [facility] Not available 05/14/2014 19:52:00 learning about h igh blood pressure [facility] available 05/14/2014 19:52:00 starting a weigh t loss plan: care instructions [facility] Not available 05/14/2014 19:52:00 Nutrition Referr al and Weight Management Follow-up Information [facility] Not available 05/14/2014 19:52:00 Medications were reviewed at this visit and reconciled. Changes in the active medications are reflected in the current medication list and discussed with patient (or caregiver) with instructions for follow up as needed. Printed medication list provided to the patient as part of the visit summary. [facility] Not [facility] 05/14/2014 19:51:49 11/02/2014 [id number] diverticulitis: care instructions [email or web address] Not available 11/02/2014 10:30:33 learning about diverticulosis and diverticulitis [email or web address] Not available 11/02/2014 10:30:33 PT to FU with PC P in 1 month, beforehand if persistent of worsening pain, fever, vomiting, bloody/black stool.? ? ? [email or web address] Not available 11/02/2014 10:30:02 05/28/2015 [id number] Colon Cancer Screening [facility] [email or web address] Not available 05/31/2015 15:33:50 learning about c olon cancer phelmuth Not available 05/29/2015 12:23:20 To call or retur n for worsening or concerns [email or web address] Not available 05/28/2015 16:41:03 Go to ER if worsening abdominal pain, fever or persistent vomiting. I have reviewed the note and agree with the assessment and plan of care. phelmuth Not available 05/29/2015 12:23:21 08/25/2015 [id number] deciding about u sing medicines to quit smoking phelmuth Not available 08/25/2015 21:59:57 Quitting Tobacco : Care Instructions phelmuth Not available 08/25/2015 21:59:58 gastroesophageal reflux disease (GERD): care instructions [facility] 08/25/2015 21:59:57 learning about h igh blood sugar phelmuth Not available 08/25/2015 21:59:57 fatigue: care instructions [facility] Not available 08/25/2015 21:59:57 Colon Cancer Screening [facility] phelmuth Not available 08/25/2015 21:59:57 learning about c olon cancer phelmuth Not available 08/25/2015 21:59:57 high blood press ure: care instructions [facility] Not available 08/25/2015 21:59:57 learning about h igh blood pressure phelmuth Not available 08/25/2015 21:59:57 starting a weigh t loss plan: care instructions [facility] Not available 08/25/2015 21:59:57 Nutrition Referr al and Weight Management Follow-up Information [facility] Not available 08/25/2015 21:59:57 Continue to emi tor home blood pressures and bring to next appointment. [facility] Not available 08/25/2015 10:11:42 Medications were reviewed at this visit and reconciled. Changes in the active medications are reflected in the current medication list and discussed with patient (or caregiver) with instructions for follow up as needed. Printed medication list provided to the patient as part of the visit summary. [facility] Not available 08/25/2015 10:11:42 Reason for Referral Food Technology Teacher/dietitian Refer ral for Body mass index 30+ - obesity Referring Physician: Ryan Bustos, Internal Medicine, Encounter Date: 05/12/2014 Referring Physician: Ryan dean, Internal Medicine, Encounter Date: 08/25/2015 Food Technology Teacher/dietitian Refer ral for Body mass index 30+ - obesity Referring Physician: Ryan Bustos, Internal Medicine, Encounter Date: 08/25/2015 Results Created Date Observation Date Name Description Value Unit Range Abnormal Flag Note LastModifiedBy Organization Detail LastModifiedTime 08/25/19 16 08/25/2015 elect rocar diogr am Rate & Rhythm Not Available In-Off ice Order Internal Use Only DO Not Attach Compendium DO Not Attach Compendium, Do Not Delete/merge, [id number] 08/25/2015 09:20:03 08/25/19 16 08/25/2015 elect rocar diogr am QRS Not Available In-Office Order Internal Use Only DO Not Attach Compendium DO Not Attach Compendium, Do Not Delete/merge, [id number] 08/25/2015 09:20:03 08/25/19 16 08/25/2015 elect rocar diogr am GA Interval Not Available In-Off ice Order Internal Use Only DO Not Attach Compendium DO Not Attach Compendium, Do Not Delete/merge, [id number] 08/25/2015 09:20:03 08/25/19 16 08/25/2015 elect rocar diogr am QRS Duration Not Available In-Of fice Order Internal Use Only DO Not Attach Compendium DO Not Attach Compendium, Do Not Delete/merge, [id number] 08/25/2015 09:20:03 08/25/19 16 08/25/2015 elect rocar diogr am QT Interval Not Available In-Off ice Order Internal Use Only DO Not Attach Compendium DO Not Attach Compendium, Do Not Delete/merge, [id number] 08/25/2015 09:20:03 05/12/20 14 05/12/2014 lipid panel , serum cholesterol, total 154 mg/dL (<200) Not Available [facility] [address] [place], [address], 05/25/2014 15:11:14 05/12/20 14 05/12/2014 lipid panel , serum triglyceride 118 mg/dL (<150) Not Available [facility] [address] [place], [address], 05/25/2014 15:11:14 05/12/20 14 05/12/2014 lipid panel , serum HDL chol 45 mg/dL (>39) Not Available [facility] [address] [place], [address], 05/25/2014 15:11:14 05/12/20 14 05/12/2014 lipid panel , serum LDL cholesterol, calculated 85 mg/dL (0-130 ) Not Available [facility] [address] [place], [address], 05/25/2014 15:11:14 05/12/20 14 05/12/2014 lipid panel , serum non HDL cholesterol (calc) 109 mg/dL (<160) Not Available [facility] [address] [place], [address], 05/25/2014 15:11:14 05/12/20 14 05/12/2014 BMP, serum or plasm a glucose 89 mg/dL (70-99 ) Not Available [facility] [address] [place], [address], 05/25/2014 15:11:13 05/12/20 14 05/12/2014 BMP, serum or plasm a BUN 21 mg/dL (6-20) high Not Available [facility] [address] [place], [address], 05/25/2014 15:11:13 05/12/20 14 05/12/2014 BMP, serum or plasm a creatinine 1.1 mg/dL (0.7-1 .2) Not Available [facility] [address] [place], [address], 05/25/2014 15:11:13 05/12/20 14 05/12/2014 BMP, serum or plasm a sodium 140 mmol/ L (133-1 45) Not Available [facility] [address] [place], [address], 05/25/2014 15:11:13 05/12/20 14 05/12/2014 BMP, serum or plasm a potassium 4.3 mmol/ L (3.6-5 .2) Not Available [facility] [address] [place], [address], 05/25/2014 15:11:13 05/12/20 14 05/12/2014 BMP, serum or plasm a chloride 99 mmol/ L (98-10 7) Not Available [facility] [address] [place], [address], 05/25/2014 15:11:13 05/12/20 14 05/12/2014 BMP, serum or plasm a bicarbonate 30 mmol/ L (22-29 ) high Not Available [facility] [address] [place], [address], 05/25/2014 15:11:13 05/12/20 14 05/12/2014 BMP, serum or plasm a anion gap 11 (4-17) Not Available [facility] [address] [place], [address], 05/25/2014 15:11:13 05/12/20 14 05/12/2014 BMP, serum or plasm a calcium 9.9 mg/dL (8.6-1 0.5) Not Available [facility] [address] [place], [address], 05/25/2014 15:11:13 05/12/20 14 05/12/2014 BMP, serum or plasm a est GFR non >60 mL/mi n/1.7 3_M2 THE MDRD STUDY 'S ESTIM ATED GFR EQUAT ION HAS NOT BEEN VALID ATED IN CHILD MOOSE (<18 YRS), PREGN ANT WOMEN , THE ELDER LY (AGE >70 YRS), RACIA L OR ETHNI C SUBGR OUPS OTHER THAN CAUCA SIANS AND AFRIC AN AMERI CANS. Not Available [facility] [address] [place], [address], 05/25/2014 15:11:13 05/12/20 14 05/12/2014 BMP, serum or plasm a est GFR >60 mL/mi n/1.7 3_M2 THE MDRD STUDY 'S ESTIM ATED GFR EQUAT ION HAS NOT BEEN VALID ATED IN CHILD MOOSE (<18 YRS), PREGN ANT WOMEN , THE ELDER LY (AGE >70 YRS), RACIA L OR ETHNI C SUBGR OUPS OTHER THAN CAUCA SIASOSA AND AFRIC AN AMERI CANS. Not Available [facility] [address] [place], [address], 05/25/2014 15:11:13 05/12/20 14 05/12/2014 ALT (harshad ine amino trans feras e), serum or plasm a ALT 23 U/L (0-41) Not Available [facility] [address] [place], [address], 05/25/2014 15:11:12 05/28/20 15 05/28/2015 CBC w/ auto diff WBC 13.5 K/mm3 (4.0-1 1.0) high Not Available [facility] [address] [place], [address], 05/28/2015 19:59:07 05/28/20 15 05/28/2015 CBC w/ auto diff RBC 5.12 M/mm3 (4.70- 6.10) Not Available [facility] [address] [place], [address], 05/28/2015 19:59:07 05/28/20 15 05/28/2015 CBC w/ auto diff HGB 15.2 gm/dL (14.0- 18.0) Not Available [facility] [address] [place], [address], 05/28/2015 19:59:07 05/28/20 15 05/28/2015 CBC w/ auto diff HCT 44.2 % (42.0- 52.0) Not Available [facility] [address] [place], [address], 05/28/2015 19:59:07 05/28/20 15 05/28/2015 CBC w/ auto diff MCV 86.3 fL (80.0- 94.0) Not Available [facility] [address] [place], [address], 05/28/2015 19:59:07 05/28/20 15 05/28/2015 CBC w/ auto diff MCH 29.7 pg (27.0- 34.0) Not Available [facility] [address] [place], [address], 05/28/2015 19:59:07 05/28/20 15 05/28/2015 CBC w/ auto diff MCHC 34.4 % (33.0- 37.0) Not Available [facility] [address] [place], [address], 05/28/2015 19:59:07 05/28/20 15 05/28/2015 CBC w/ auto diff plt 198 K/mm3 (150-4 60) Not Available [facility] [address] [place], [address], 05/28/2015 19:59:07 05/28/20 15 05/28/2015 CBC w/ auto diff RDW-SD 39.5 fL (<47.0 ) Not Available [facility] [address] [place], [address], 05/28/2015 19:59:07 05/28/20 15 05/28/2015 CBC w/ auto diff MPV 11.2 fL (9.4-1 2.4) Not Available [facility] [address] [place], [address], 05/28/2015 19:59:07 05/28/20 15 05/28/2015 CBC w/ auto diff automated NRBC 0.0 #/100 _WBC' s Not Available [facility] [address] [place], [address], 05/28/2015 19:59:07 05/28/20 15 05/28/2015 CBC w/ auto diff abs. NRBC 0.0 K/mm3 Not Available [facility] [address] [place], [address], 05/28/2015 19:59:07 05/28/20 15 05/28/2015 CBC w/ auto diff neut # 10.2 K/mm3 (1.3-7 .0) high Not Available [facility] [address] [place], [address], 05/28/2015 19:59:07 05/28/20 15 05/28/2015 CBC w/ auto diff lymph # 2.2 K/mm3 (0.8-3 .1) Not Available [facility] [address] [place], [address], 05/28/2015 19:59:07 05/28/20 15 05/28/2015 CBC w/ auto diff mono# 1.0 K/mm3 (0.4-1 .3) Not Available [facility] [address] [place], [address], 05/28/2015 19:59:07 05/28/20 15 05/28/2015 CBC w/ auto diff eo # 0.1 K/mm3 (0.0-0 .4) Not Available [facility] [address] [place], [address], 05/28/2015 19:59:07 05/28/20 15 05/28/2015 CBC w/ auto diff baso # 0.0 K/mm3 (0.0-0 .1) Not Available [facility] [address], [address], 05/28/2015 19:59:07 05/28/20 15 05/28/2015 CBC w/ auto diff abs. imm gran 0.1 K/mm3 Not Available [facility] [address] [place], [address], 05/28/2015 19:59:07 05/28/20 15 05/28/2015 CBC w/ auto diff neut 74.5 % (44-76 ) Not Available [facility] [address] [place], [address], 05/28/2015 19:59:07 05/28/20 15 05/28/2015 CBC w/ auto diff lymph 15.9 % (15-43 ) Not Available [facility] [address] [place], [address], 05/28/2015 19:59:07 05/28/20 15 05/28/2015 CBC w/ auto diff monocyte 7.7 % (4.5-1 0.5) Not Available [facility] [address] [place], [address], 05/28/2015 19:59:07 05/28/20 15 05/28/2015 CBC w/ auto diff eo 0.9 % (0-6) Not Available [facility] [address] [place], [address], 05/28/2015 19:59:07 05/28/20 15 05/28/2015 CBC w/ auto diff baso 0.3 % (0-2) Not Available [facility] [address] [place], [address], 05/28/2015 19:59:07 05/28/20 15 05/28/2015 CBC w/ auto diff imm gran 0.7 % (0.0-0 .6) high Not Available [facility] [address] [place], [address], 05/28/2015 19:59:07 05/28/20 15 05/28/2015 CMP, serum or plasm a glucose 121 mg/dL (70-99 ) high Not Available [facility] [address] [place], [address], 05/28/2015 20:18:24 05/28/20 15 05/28/2015 CMP, serum or plasm a BUN 23 mg/dL (6-20) high Not Available [facility] [address] [place], [address], 05/28/2015 20:18:24 05/28/20 15 05/28/2015 CMP, serum or plasm a creatinine 1.2 mg/dL (0.7-1 .2) Not Available [facility] [address] [place], [address], 05/28/2015 20:18:24 05/28/20 15 05/28/2015 CMP, serum or plasm a sodium 141 mmol/ L (133-1 45) Not Available [facility] [address] [place], [address], 05/28/2015 20:18:24 05/28/20 15 05/28/2015 CMP, serum or plasm a potassium 3.7 mmol/ L (3.6-5 .2) Not Available [facility] [address] [place], [address], 05/28/2015 20:18:24 05/28/20 15 05/28/2015 CMP, serum or plasm a chloride 98 mmol/ L (98-10 7) Not Available [facility] [address] [place], [address], 05/28/2015 20:18:24 05/28/20 15 05/28/2015 CMP, serum or plasm a bicarbonate 30 mmol/ L (22-29 ) high Not Available [facility] [address] [place], [address], 05/28/2015 20:18:24 05/28/20 15 05/28/2015 CMP, serum or plasm a anion gap 13 (4-17) Not Available [facility] [address] [place], [address], 05/28/2015 20:18:24 05/28/20 15 05/28/2015 CMP, serum or plasm a albumin 4.8 gm/dL (3.4-4 .8) Not Available [facility] [address] [place], [address], 05/28/2015 20:18:24 05/28/20 15 05/28/2015 CMP, serum or plasm a calcium 9.8 mg/dL (8.6-1 0.5) Not Available [facility] [address] [place], [address], 05/28/2015 20:18:24 05/28/20 15 05/28/2015 CMP, serum or plasm a bilirubin,to gregory 0.7 mg/dL (0-1.2 ) Not Available [facility] [address] [place], [address], 05/28/2015 20:18:24 05/28/20 15 05/28/2015 CMP, serum or plasm a total protein 7.4 gm/dL (6.2-8 .2) Not Available [facility] [address] [place], [address], 05/28/2015 20:18:24 05/28/20 15 05/28/2015 CMP, serum or plasm a Ag ratio 1.8 Not Available [facility] [address] [place], [address], 05/28/2015 20:18:24 05/28/20 15 05/28/2015 CMP, serum or plasm a AST 19 U/L (0-38) Not Available [facility] [address] [place], [address], 05/28/2015 20:18:24 05/28/20 15 05/28/2015 CMP, serum or plasm a alk phos 63 U/L (40-12 9) Not Available [facility] [address] [place], [address], 05/28/2015 20:18:24 05/28/20 15 05/28/2015 CMP, serum or plasm a ALT 28 U/L (0-41) Not Available [facility] [address] [place], [address], 05/28/2015 20:18:24 05/28/20 15 05/28/2015 CMP, serum or plasm a est GFR non >60 mL/mi n/1.7 3_M2 THE MDRD STUDY 'S ESTIM ATED GFR EQUAT ION HAS NOT BEEN VALID ATED IN CHILD MOOSE (<18 YRS), PREGN ANT WOMEN , THE ELDER LY (AGE >70 YRS), RACIA L OR ETHNI C SUBGR OUPS OTHER THAN CAUCA SIASOSA AND AFRIC AN AMERI CANS. Not Available [facility] [address] [place], [address], 05/28/2015 20:18:24 05/28/20 15 05/28/2015 CMP, serum or plasm a est GFR >60 mL/mi n/1.7 3_M2 THE MDRD STUDY 'S ESTIM ATED GFR EQUAT ION HAS NOT BEEN VALID ATED IN CHILD MOOSE (<18 YRS), PREGN ANT WOMEN , THE ELDER LY (AGE >70 YRS), RACIA L OR ETHNI C SUBGR OUPS OTHER THAN CAUCA SIANS AND AFRIC AN AMERI CANS. Not Available [facility] [address] [place], [address], 05/28/2015 20:18:24 11/10/19 15 10/30/2014 imagi ng/di ledaos tic resul t No observ ation record ed. phelmuth Not Available 2015 09:50:37 08/25/19 16 elect arvin diogr am No observ ation record ed. [email or web address] Not Available 2015 09:41:39 Result Notes None recorded. Problems Name Problem SNOMED Code Status Onset Date Resolution Date Notes Provider Name and Address Organization Details Recorded Time Sprains and strains of joints and adjacent muscles Completed 201102/19/2014 RECORDED 04/23/20 12 9:33AM BY DIXON HOLLAND MA, ANNOTATI ON/ADDEN DUM BLAYNE Hurtado [facility] 6 09:33:55 Bicipita l tenosyno vitis [id number] Completed 201202/19/2014 IMPRESSI ON: AT ATTACHME NT AT ELBOW. CONTINUE ALEVE; RECORDED 10/24/19 13 10:00AM BY HIEN MANNING MA, ANNOTATI ON/ADDEN DUM BLAYNE Hrutado [facility] 6 09:33:55 Carpal tunnel syndrome [id number] Active [address] [facility] 6 09:33:55 Chest pain [id number] Completed 201102/19/2014 RECORDED 04/23/20 12 9:33AM BY DIXON HOLLAND MA, LETTY ON/[facility] Closed fracture of lower end of radius AND ulna 74298502 Completed 200802/19/2014 RECORDED 05/20/20 09 8:20AM BY RYAN BUSTOS MD, LETTY ON/ADDEN [facility]UM [facility] 6 09:[facility]:55 Disorder of kidney and/or ureter [id number] Completed 200802/19/2014 IMPRESSI ON: CREATINI NE 1.4 (11/2006) ; RECORDED 05/20/20 09 8:20AM BY RYAN BUSTOS MD, LETTY ON/ADDEN DUM [facility] 6 09:33:55 Edema [id number] Completed 200802/19/2014 RECORDED 05/20/20 09 7:44AM BY HIEN MANNING MA, ANNOTATI ON/ADDEN DUM [facility] 6 09:33:55 Influenz a vaccine needed [id number] Completed 201102/19/2014 RECORDED 03/19/20 12 8:37AM BY NADYA CAMILO, OFFICE VISIT [facility] 6 09:33:55 Follow-u p encounte r Completed 201102/19/2014 RECORDED 03/19/20 12 8:24AM BY LETTY LUNA ON/ADDEN DUM [facility] 6 09:[facility]:55 Adult health examinat ion Completed 201102/19/2014 RECORDED 04/23/20 12 9:33AM BY DIXON HOLLAND MA, ANNOTJEANNIE ON/ADDEN DUM [place] Hurtado, [facility] 6 09:33:55 General examinat ion of patient Completed 200702/19/2014 RECORDED 07/14/20 08 7:03AM BY LETTY FU ON/ADDEN DUM [place] Hurtado, [facility] 6 09:33:55 Hypercho lesterol emia [id number] Completed 201202/19/2014 RECORDED 11/26/19 13 1:46PM BY DIXON HOLLAND MA, LETTY ON/ADDEN DUM Hien Rivera-M B[place]NE rico, [facility] 6 09:33:54 Hypersom donis 84435388 Completed 201102/19/2014 RECORDED 06/18/20 12 7:23AM BY LETTY BERNAL ON/ADDEN DUM Hien Rivera-BLAYNE Humphrey, [facility] 6 09:33:55 Epidermo id cyst of skin [id number] Completed 201102/19/2014 RECORDED 03/19/20 12 8:24AM BY LETTY LUNA ON/ADDEN DUM [place] Hurtado, [facility] 6 09:33:55 Renewal of prescrip tion Completed 201202/19/2014 RECORDED 11/26/19 13 1:46PM BY DIXON HOLLAND MA, LETTY ON/ADDEN DUM [place] Hurtado, [facility] 6 09:33:55 Administ ration of bacteria l and viral vaccine Completed 200702/19/2014 RECORDED 03/31/20 08 7:18AM BY HIEN MANNING MA, OFFICE VISIT BLAYNE Hurtado [facility] 6 09:33:55 Hyperhid rosis [id number] Completed 201102/19/2014 RECORDED 04/23/20 12 9:33AM BY DIXON HOLLAND MA, ANNOTJEANNIE ON/ADDEN DUM [place]NE Hurtado, [facility] 6 09:33:55 Tobacco user [id number] Completed 201102/19/2014 RECORDED 03/19/20 12 8:24AM BY LETTY LUNA ON/ADDEN DUM BLAYNE Hurtado, [facility] 6 09:33:55 Sprain of foot 41157923 Completed 201102/19/2014 RECORDED 03/19/20 12 8:24AM BY LETTY LUNA ON/ADDEN DUM BLAYNE Hurtado, [facility] 6 09:33:55 Sprains and strains of joints and adjacent muscles Completed 201102/20/2014 RECORDED 04/23/20 12 9:33AM BY DIXON HOLLAND MA, ANNOTATI ON/ADDEN DUM [place] Hurtado, [facility] 6 09:33:55 Bicipita l tenosyno vitis [id number] Completed 201202/20/2014 IMPRESSI ON: AT ATTACHME NT AT ELBOW. CONTINUE ALEVE; RECORDED 10/24/19 13 10:00AM BY HIEN MANNING MA, LETTY ON/ADDEN DUM [place] Hurtado, [facility] 6 09:33:55 Chest pain 83947131 Completed 201102/20/2014 RECORDED 04/23/20 12 9:33AM BY DIXON HOLLAND MA, LETTY ON/ADDEN DUM BLAYNE Hurtado, [facility] 6 09:33:55 Closed fracture of lower end of radius AND ulna 01990743 Completed 200802/20/2014 RECORDED 05/20/20 09 8:20AM BY RYAN BUSTOS MD, ANNOTJEANNIE ON/ADDEN DUM BLAYNE Hurtado, [facility] 6 09:33:55 Disorder of kidney and/or ureter 782090187 Completed 200802/20/2014 IMPRESSI ON: CREATINI NE 1.4 (11/2006) ; RECORDED 05/20/20 09 8:20AM BY RYAN BUSTOS MD, LETTY ON/ADDEN DUM BLAYNE Hurtado, [facility] 6 09:33:55 Edema [id number] Completed 200802/20/2014 RECORDED 05/20/20 09 7:44AM BY HIEN MANNING MA, ANNOTATI ON/ADDEN DUM BLAYNE Hurtado, [facility] 6 09:33:55 Influenz a vaccine needed [id number] 06 Completed 201102/20/2014 RECORDED 03/19/20 12 8:37AM BY NADYA CAMILO, OFFICE VISIT BLAYNE Hurtado, [facility] 6 09:33:55 Follow-u p encounte r Completed 201102/20/2014 RECORDED 03/19/20 12 8:24AM BY LETTY LUNA ON/ADDEN DUM BLAYNE Hurtado, [facility] 6 09:33:55 Adult health examinat ion Completed 201102/20/2014 RECORDED 04/23/20 12 9:33AM BY DIXON HOLLAND MA, LETTY ON/ADDEN DUM BLAYNE Hurtado, [facility] 6 09:33:55 General examinat ion of patient Completed 200702/20/2014 RECORDED 07/14/20 08 7:03AM BY LETTY FU ON/ADDEN DUM BLAYNE Hurtado, [facility] 6 09:33:55 Hypercho lesterol emia 01111016 Completed 201202/20/2014 RECORDED 11/26/19 13 1:46PM BY DIXON HOLLAND MA, LETTY ON/ADDEN DUM BLAYNE Hurtado, [facility] 6 09:33:54 Hypersom donis 36459895 Completed 201102/20/2014 RECORDED 06/18/20 12 7:23AM BY LETTY BERNAL ON/ADDEN DUM [facility] 6 09:[facility] Epidermo id cyst of skin 767224628 Completed 201102/20/2014 RECORDED 03/19/20 12 8:24AM BY LETTY LUNA ON/ADDEN DUM BLAYNE Hurtado, [facility] 6 09:33:55 Renewal of prescrip tion Completed 201202/20/2014 RECORDED 11/26/19 13 1:46PM BY DIXON HOLLAND MA, LETTY ON/ADDEN DUM BLAYNE Hurtado, [facility] 6 09:33:55 Administ ration of bacteria l and viral vaccine Completed 200702/20/2014 RECORDED 03/31/20 08 7:18AM BY HIEN MANNING MA, OFFICE VISIT BLAYNE Hurtado, [facility] 6 09:33:55 Hyperhid rosis 927864089 Completed 201102/20/2014 RECORDED 04/23/20 12 9:33AM BY DIXON HOLLAND MA, LETTY ON/ADDEN DUM BLAYNE Hurtado, [facility] 6 09:33:55 Tobacco user [id number] Completed 201102/20/2014 RECORDED 03/19/20 12 8:24AM BY LETTY LUNA ON/ADDEN DUM [facility] 6 09:[facility]:55 Sprain of foot 87877844 Completed 201102/20/2014 RECORDED 03/19/20 12 8:24AM BY LETTY LUNA ON/ADDEN DUM BLAYNE Hurtado, [facility] 6 09:33:55 Body mass index 30+ - obesity 711252841 Active BLAYNE Hurtado, [facility] 6 09:33:55 Low back pain 252794684 Active BLAYNE Hurtado, [facility] 6 09:33:55 Divertic ulitis of colon 031990285 Active BLAYNE Hurtado, [facility] 6 09:33:55 Fatigue 53936315 [facility] 6 09:[facility]:55 Hypergly cemia 92913689 Active BLAYNE Hurtado, [facility] 6 09:33:55 Sprains and strains of joints and adjacent muscles Completed 201101/27/2014 RECORDED 04/23/20 12 9:33AM BY DIXON HOLLAND MA, ANNOTATI ON/ADDEN DUM BLAYNE Hurtado, [facility] 6 09:33:55 Acute prostati tis 31800091 Active 2013 IMPRESSI ON: WE DISCUSSE D TREATING FOR STD OR NOT GIVEN THAT HE IS MSM AND IS AT RISK. HE DOES NOT FEEL HE IS AT RISK AND WOULD LIKE TO DO THE NON-STD TREATMEN T. WILL TEST. HE WILL CALL IN 3 DAYS IF NOT IMPROVIN G AND WOULD CONSIDER STD PROSTATI TS TREATMEN T IF NOT IMPROVIN G. CASE DISCUSSE D WITH DR. BUSTOS; RECORDED 01/10/20 14 1:21PM BY HIEN MANNING MA, OFFICE VISIT BLAYNE Hurtado, [facility] 6 09:33:55 Bicipita l tenosyno vitis 37706809 Completed 201201/27/2014 IMPRESSI ON: AT ATTACHME NT AT ELBOW. CONTINUE ALEVE; RECORDED 10/24/19 13 10:00AM BY HIEN MANNING MA, ANNOTATI ON/ADDEN DUM BLAYNE Hurtado, [facility] 6 09:33:55 Biliuria 43390077 Active 2013 BLAYNE Hurtado, [facility] 6 09:33:55 Carpal tunnel syndrome 63107964 Completed 200801/27/2014 RECORDED 05/20/20 09 8:20AM BY RYAN BUSTOS MD, ANNOTATI ON/ADDEN DUM BLAYNE Hurtado, [facility] 6 09:33:55 Chest pain 53734655 Completed 201101/27/2014 RECORDED 04/23/20 12 9:33AM BY DIXON HOLLAND MA, ANNOTATI ON/ADDEN DUM BLAYNE Hurtado, [facility] 6 09:33:55 Chronic tension- type headache 442299138 Active 2013 BLAYNE Hurtado, [facility] 6 09:33:55 Closed fracture of lower end of radius AND ulna 42585724 Completed 200801/27/2014 RECORDED 05/20/20 09 8:20AM BY RYAN BUSTOS MD, ANNOTATI ON/ADDEN DUM BLAYNE Hurtado, [facility] 6 09:33:55 Depressi ve disorder 76492460 Active 2013 BLAYNE Hurtado, [facility] 6 09:33:55 Disorder of kidney and/or ureter 308787503 Completed 200801/27/2014 IMPRESSI ON: CREATINI NE 1.4 (11/2006) ; RECORDED 05/20/20 09 8:20AM BY RYAN BUSTOS MD, ANNOTJEANNIE ON/ADDEN DUM BLAYNE Hurtado [facility] 6 09:33:55 Edema 650033100 Completed 200801/27/2014 RECORDED 05/20/20 09 7:44AM BY HIEN MANNING MA, ANNOTATI ON/ADDEN DUM BLAYNE Hurtado [facility] 6 09:33:55 Gastroes ophageal reflux disease 778275228 Active 2013 BLAYNE Hurtado, [facility] 6 09:33:55 Malaise and fatigue 132593059 Active [address] [facility] 6 09:33:55 Influenz a vaccine needed 73496764107 06 Completed 201101/27/2014 RECORDED 03/19/20 12 8:37AM BY NADYA CAMILO, OFFICE VISIT BLAYNE Hurtado [facility] 6 09:33:55 Follow-u p encounte r Completed 201101/27/2014 RECORDED 03/19/20 12 8:24AM BY LETTY LUNA ON/ADDEN DUM BLAYNE Hurtado [facility] 6 09:33:55 Adult health examinat ion Completed 201101/27/2014 RECORDED 04/23/20 12 9:33AM BY DIXON HOLLAND MA, ANNOTATI ON/ADDEN DUM Hien Nicole-M BLAYNE rico, [facility] 6 09:33:55 General examinat ion of patient Completed 200701/27/2014 RECORDED 07/14/20 08 7:03AM BY BLAYNE [place], ANNOTATI ON/ADDEN DUM Hien Nicole-M BLAYNE rico, [facility] 6 09:33:55 Hypercho lesterol emia 54747853 Completed 201201/27/2014 RECORDED 11/26/19 13 1:46PM BY DIXON HOLLAND MA, ANNOTJEANNIE ON/ADDEN DUM Hien Rivera-M BLAYNE rico, [facility] 6 09:33:54 Hyperlip idemia 06791663 Active 2013 Hien Rivera-BLAYNE Humphrey, [facility] 6 09:33:54 Hypersom donis 84505707 Completed 201101/27/2014 RECORDED 06/18/20 12 7:23AM BY JERAMIE MUNIZ I, ANNOTATI ON/ADDEN DUM Hien Rivera-BLAYNE Humphrey, [facility] 6 09:33:55 Essentia l hyperten duglas 68420038 Active 2013 Hien Rivera-M BLAYNE rico, [facility] 6 09:33:55 Epidermo id cyst of skin 905902955 Completed 201101/27/2014 RECORDED 03/19/20 12 8:24AM BY NADYA CAMILO, ANNOTJEANNIE ON/ADDEN DUM Hien Sevillaivan-M BLAYNE rico, [facility] 6 09:33:55 Insomnia 901008950 Active 2013 HienBLAYNE Sloan, [facility] 6 09:33:55 Renewal of prescrip tion Completed 201201/27/2014 RECORDED 11/26/19 13 1:46PM BY DIXON HOLLAND MA, ANNOTATI ON/ADDEN DUM BLAYNE Hurtado, [facility] 6 09:33:55 Fibromyo sitis 82171176 Active 2013 BLAYNE Hurtado, [facility] 6 09:33:55 Administ ration of bacteria l and viral vaccine Completed 200701/27/2014 RECORDED 03/31/20 08 7:18AM BY HIEN MANNING MA, OFFICE VISIT BLAYNE Hurtado, [facility] 6 09:33:55 Hyperhid rosis 737369891 Completed 201101/27/2014 RECORDED 04/23/20 12 9:33AM BY DIXON HOLLAND MA, LETTY ON/ADDEN DUM BLAYNE Hurtado, [facility] 6 09:33:55 Obesity 301345099 Active 2013 STORY: RECENT INCREASE IN HIS WEIGHT.; RECORDED 01/10/20 14 1:21PM BY HIEN MANNING MA, OFFICE VISIT BLAYNE Hurtado, [facility] 6 09:33:55 Tobacco user [id number] Completed 201101/27/2014 RECORDED 03/19/20 12 8:24AM BY LETTY LUNA ON/ADDEN DUM BLAYNE Hurtado, [facility] 6 09:33:55 History of clinical finding in subject 169733382 Active 2011 BLAYNE Hurtado, [facility] 6 09:33:55 Proteinu brandon 25595135 Active 2013 BLAYNE Hurtado, [facility] 6 09:33:55 Psychose xual dysfunct ion associat ed with inhibite d libido 029174636 Active [address] [facility] 6 09:33:55 Sprain of foot 56521383 Completed 201101/27/2014 RECORDED 03/19/20 12 8:24AM BY LETTY LUNA ON/ADDEN DUM BLAYNE Hurtado [facility] 6 09:33:55 Tobacco dependen ce syndrome 55117651 Active [address] [facility] 6 09:33:55 Problem Notes None recorded. Procedures Surgical History Date Name Laterality Status Provider Name and Address Organization Details Recorded Time 6 Colonoscopy completed Analisa Miller [facility] 12/06/2015 16:58:34 3 Vasectomy completed [facility] 05/12/2014 08:16:32 5 Circumcision completed [facility] 05/12/2014 08:16:32 Imaging Results Imaging Date Name Status LastModified by Organization Details LastModified Time 10/30/2014 imaging/diagnostic result completed [facility] Information not available 08/25/2015 09:50:37 08/25/2015 electrocardiogram completed [facility] Informa tion not available 08/25/2015 09:41:39 Procedure Notes None recorded. Medical Equipment None Reported. Allergies Allergen ID Allergen Name Allergen Category Reaction Reaction Severity Criticality Documentation Date Start Date Code Code System Note Provider Name and Address Organization Details Recorded Time 1997 aspirin medicatio n nausea Not available Not available 01/27/2014 1191 [employer] Pat Lemos, [facility] [address] [address], [place], [id number], [facility] [place] 5 16:39:27 Medications Name Sig Start Date Stop Date Status Note LastModified by Organization Details LastModified Time cyclobenz aprine 10 mg tablet active Not Available Not Available No t Available Viagra 50 mg tablet Take 1 tablet every day by oral route as needed for 30 days. 2013 active Not Available Not Available Not Avai lable topiramat e 25 mg tablet ESCALATI NG DOSE BELOW 09/21 completed RECORDED 11/29/19 11 9:47AM BY RYAN BUSTOS MD, MEDICATI ON AUTO-KAMLESH CTIVATIO N;TAKE ONE AT BEDTIME FOR 7 DAYS, THEN ONE 2 TIMES DAILY FOR 7 DAYS, THEN 1 IN THE AM AND 2 AT BEDTIME FOR 7 DAYS, THEN SWITCH TO 50MG PRESCRIP TION. Not Available Not Available Not Available metronida zole 500 mg tablet Take 1 tablet every 8 hours by oral route as directed for 10 days. 2014 active Not Available Not Available Not Avai lable chlorthal idone 25 mg tablet TAKE 1 TABLET BY MOUTH EVERY DAY active Not Available Not Available No t Available simvastat in 80 mg tablet TAKE 1 TABLET BY MOUTH EVERY DAY active Not Available Not Available No t Available butalbita l-acetami nophen-ca ffeine 50 mg-325 mg-40 mg tablet EVERY 4 HOURS NEEDED FOR TENSION HEADACHE 08/31 completed RECORDED 09/05/19 11 5:15PM BY JERAMIE MUNIZ I, MEDICATI ON AUTO-KAMLESH CTIVATIO N; Not Available Not Available Not Available Flagyl 250 mg tablet Take 1 tablet every 6 hours by oral route. active Not Available Not Available No t Available lorazepam 2 mg tablet TAKE 1 TABLET BY MOUTH AT BEDTIME active Not Available Not Available No t Available cephalexi n 500 mg capsule Take 1 capsule 6 times a day by oral route. active Not Available Not Available No t Available Cipro 500 mg tablet Take 1 tablet every 12 hours by oral route as directed for 10 days. 2014 active Not Available Not Available Not Avai lable omeprazol e 20 mg capsule,d elayed release TAKE ONE CAPSULE BY MOUTH EVERY DAY active Not Available Not Available No t Available isomethep tene-dich loralphen -acetamin ophen 65 mg-100 mg-325 mg capsule FOUR TIMES DAILY, NEEDED 11/20 completed RECORDED 11/21/19 12 9:02AM BY RYAN BUSTOS MD, ANNOTATI ON/ADDEN DUM; Not Available Not Available Not Available cephalexi n 500 mg tablet THREE TIMES DAILY 12/29 completed RECORDED 01/07/20 10 10:46AM BY LESA MARINELLI PA-C, MEDICATI ON AUTO-KAMLESH CTIVATIO N; Not Available Not Available Not Available lorazepam 1 mg tablet THREE TIMES DAILY, NEEDED 03/19 completed RECORDED 03/19/20 12 8:31AM BY NADYA CAMILO, OFFICE VISIT;#9 GIVEN AT ER VISIT Not Available Not Available Not Available lisinopri l 10 mg-hydroc hlorothia zide 12.5 mg tablet QD 05/20 completed RECORDED 05/20/20 09 8:31AM BY HIEN MANNING MA, OFFICE VISIT; Not Available Not Available Not Available naproxen 500 mg tablet active Not Available Not Available Not Available bupropion HCl XL 300 mg 24 hr tablet, extended release Take 1 tablet every day by oral route for 90 days. active Not Available Not Available No t Available topiramat e 50 mg tablet TWO TIMES DAILY 11/20 completed RECORDED 11/21/19 12 9:02AM BY RYAN BUSTOS MD, ANNOTATI ON/ADDEN DUM; Not Available Not Available Not Available Roxicodon e 1-2 tabs po every 4 hr as needed active Not Available Not Available No t Available omeprazol e TWO TIMES DAILY 2012 active RECORDED 11/28/19 13 1:03PM BY RYAN BUSTOS MD, REFILL REQUEST; Not Available Not Available Not Available blood pressure monitor DAILY MONITORI NG OF BP FOR HTN 10/04 completed RECORDED 10/08/19 10 8:36AM BY HIEN MANNING MA, MEDICATI ON AUTO-KAMLESH CTIVATIO N; Not Available Not Available Not Available varenicli ne tartrate 1 mg tablet BID 08/19 completed RECORDED 08/19/19 13 3:34PM BY DIXON HOLLAND MA, OFFICE VISIT; Not Available Not Available Not Available Chantix Starting Month Toni 0.5 mg (11)-1 mg (42) tablets in dose pack TWO TIMES DAILY, NEEDED 07/18 completed RECORDED 07/19/19 13 8:38AM BY RYAN BUSTOS MD, MEDICATI ON AUTO-KAMLESH CTIVATIO N; Not Available Not Available Not Available Elastic Wrist Splint Support QHS, DX: CARPAL TUNNEL SYNDROME 12/19 completed RECORDED 12/23/19 10 8:48AM BY HIEN MANNING MA, MEDICATI ON AUTO-KAMLESH CTIVATIO N; Not Available Not Available Not Available omeprazol e 20 mg tablet,de layed release Take 1 tablet every day by oral route for 90 days. 2015 active Not Available Not Available Not Avai lable Vitals Date Recorded Oxygen saturation Oxygen saturation in Arterial blood by Pulse oximetry Body weight Body temperature Heart rate Body mass index (BMI) Body height Systolic blood pressure Diastolic blood pressure Provider Name and Address Organization Details Last Updated DateTime 4 97 % 97 % 08114.6 5874 g 98.1 [degF] 64 /min 31.2 kg/m2 171.45 cm 115 mm[Hg] 74 mm[Hg] Dixon Holland [facility] [place] 4 08:21:21 Date Recorded Oxygen saturation Oxygen saturation in Arterial blood by Pulse oximetry Body weight Heart rate Body mass index (BMI) Body height Body temperature Systolic blood pressure Diastolic blood pressure Provider Name and Address Organization Details Last Updated DateTime 5 96 % 96 % 966580. 80383 g 80 /min 36.1 kg/m2 171.45 cm 97.9 [degF] 110 mm[Hg] 70 mm[Hg] Elsa Conrad MA [facility] [place] 5 09:52:32 Date Recorded Body weight Oxygen saturation Oxygen saturation in Arterial blood by Pulse oximetry Body height Body mass index (BMI) Body temperature Heart rate Systolic blood pressure Diastolic blood pressure Provider Name and Address Organization Details Last Updated DateTime 5 277825. 03005 g 96 % 96 % 171.45 cm 36.7 kg/m2 96.3 [degF] 98 /min 117 mm[Hg] 80 mm[Hg] Elsa Conrad MA [facility] 5 16:28:18 Date Recorded Body height Body mass index (BMI) Body weight Oxygen saturation Oxygen saturation in Arterial blood by Pulse oximetry Heart rate Body temperature Systolic blood pressure Diastolic blood pressure Provider Name and Address Organization Details Last Updated DateTime 6 171.45 cm 36.3 kg/m2 041270. 77489 g 97 % 97 % 88 /min 98.1 [degF] 134 mm[Hg] 82 mm[Hg] Hien rico MA [facility] 6 09:20:03 Social History Question Answer Notes LastModified by Organizat ion Details LastModified Time Tobacco Smoking Status Current Every Day Smoker Dixon nagel [facility] 05/12/2014 08:16:25 Do You Have An Advance Directive? No Information not available 05/12/2014 What Is Your Level Of Alcohol Consumption? Occasional Information not available 05/12/2014 Animal Exposure? Yes Informat ion not available 05/12/2014 Is Blood Transfusion Acceptable In An Emergency? Yes Information not available 05/12/2014 What Is Your Level Of Caffeine Consumption? Moderate Information not available 05/12/2014 How Much Tobacco Do You Chew? None Information not available 05/12/2014 Are You Currently Employed? Yes Information not available 05/12/2014 What Type Of Diet Are You Following? REGULAR Information not available 05/12/2014 Which Illicit Or Recreational Drugs Have You Used? 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 No Information not available 05/12/2014 Are There Any Guns Present In Your Home? No Information not available 05/12/2014 What Is Your Home Situation? Other Information not available 05/12/2014 Legally Blind In One Or Both Eyes? No Information not available 05/12/2014 Live Alone Or With Others? With Others Information not available 08/25/2015 Do You Take Precautions To Prevent Distracted Driving? Yes Information not available 08/25/2015 How Often Do You Need To Have Someone Help You When You Read Instructions, Pamphlets, Or Other Written Material From Your Doctor Or Pharmacy? Never Information not available 08/25/2015 Marital Status Informatio n not available 05/12/2014 Total Number Of Stairs In Home 10 Information not available 05/12/2014 How Many Children Do You Have? 3 Information not available 05/12/2014 Do You Use Protection During Sex? Usually Information not available 05/12/2014 Difficulty Reading? No Information not available 05/12/2014 What Is Your Relationship Status? Information not available 05/12/2014 Seat Belts Used Routinely Yes Information not available 05/12/2014 Are You Sexually Active? Yes Information not available 08/25/2015 Smoke Alarm In Home Yes Information not available 08/25/2015 At What Age Did You Start Smoking Tobacco? 16 Information not available 08/25/2015 Are You Passively Exposed To Smoke? No Information not available 08/25/2015 How Much Tobacco Do You Smoke? 1 PPD Information not available 08/25/2015 Do You Use Any Illicit Or Recreational Drugs? No Information not available 05/12/2014 Do You Use Sunscreen Routinely? No Information not available 05/12/2014 How Many Years Have You Smoked Tobacco? 34 Information not available 08/25/2015 Sex: Unknown Functional Status Question Answer Note LastModified by Organization D etails LastModified Time Do you have difficulty walking or climbing stairs? No Information not available 05/12/2014 [address]y [address] at night? Yes Information not available 05/12/2014 Are you able to care for yourself? Yes Information n ot available 05/12/2014 Do you have difficulty dressing or bathing? No Information not available 05/12/2014 What is your exercise level? None Information not available 05/12/2014 Mental Status Question Answer Note LastModified by Organization D etails LastModified Time Do you have difficulty concentrating, remembering or making decisions? Yes Information no t available 05/12/2014 Family History Relationship Description Onset Age of this Age Resolved Age Notes LastModified by Organization Details LastModified Time Son Alcohol abuse 17 abolcun Not available 2014 16:28:18 Son Substance abuse 17 abolcun Not available 2014 16:28:18 Mother Malignant tumor of lung 58 59 abolcun Not available 2014 09:55:52 Father Diabetes mellitus 60 73 abolcun Not available 2014 09:55:52 Father Heart disease abolcun Not available 2014 16:28:18 Brother Diabetes mellitus 40 abolcun Not available 2014 16:28:18 Brother Allergy abolcun Not available 05/28/2015 16:28:18 Medical History Condition Response Other N Gout N Kidney Stones N Blood Diseases N Hyperthyroidism N Breast Cancer N Depression N COPD N Lung Disease N Hypothyroidism N Defects or Inherited Disease N Anesthesia Complications N Headaches/Migraines N Varicose Veins N Anxiety Disorder N Obesity N Vision or Eye Problems Y Arthritis N Head Injury/Concussion N Polyps N Infertility N Congenital Anomalies N Acid Reflux (GERD) Y Cancer N Stroke N ADHD N Endometriosis N High Cholesterol Y Liver Disease N Fibromyalgia N Kidney Disease N Heart Problems N Ear or Hearing Problems N Hospitalizations N Thyroid Problems N GI Problems N Acne N Eating Disorder N Skin Problems N Anemia N Constipation N Bladder Problems N Mental Illness N Ovarian Cancer N Diabetes N Blood Transfusions N Seizures/Epilepsy N Tuberculosis N AIDS/HIV N Congestive Heart Failure (CHF) N Eczema N Diverticulitis N Abuse/Domestic Violence N Asthma N Allergies N Reflux/GERD N Hepatitis N Pulmonary Embolism N Hypertension Y Chicken Pox N Autism Spectrum Disorder (ASD) N Osteoporosis N Immunizations Vaccine Type Date Status Note Provider Nam e and Address Organization Details Recorded Time Tdap 8 completed Not Available [facility] 01/27/2014 13:31:33 Influenza, split virus, trivalent, preservative 2 completed Not Available [facility] 01/27/2014 13:31:33 Influenza, split virus, trivalent, PF 4 completed Not Available [facility] 08/02/2019 02:21:57 Past Encounters Encounter ID Performer Location Encounter Start Date Encounter Closed Date Diagnosis/Indication Diagnosis SNOMED-CT Code Diagnosis ICD10 Code Diagnosis Note [id number] [facility] [address] [place] [address] 11/14/2006 00:00:00 [id number] [facility] [address] [facility] [address] [place] [address] 03/31/2008 00:00:00 [id number] [facility] [address] [facility],[address] [place] [address] 07/14/2008 00:00:00 [id number] [facility] [address] [facility] [address] [place] [address] 09/23/2008 00:00:00 [id number] [facility] [address] [facility] [address] [place] [address] 10/09/2008 00:00:00 [id number] [facility] [address] [facility] [address] [place] [address] 10/29/2008 00:00:00 [id number] [facility] [address] [facility] [address] [place] [address] 12/24/2008 00:00:00 [id number] [facility] [address] [place] [address] 02/01/2009 00:00:00 [id number] [facility] [address] [place] [address] 05/20/2009 00:00:00 [id number] [facility] [address] [facility] [address] [place] [address] 08/26/2009 00:00:00 [id number] [facility] [address] [place] [address] 09/30/2009 00:00:00 [id number] [facility] [address] [place] [address] 12/22/2009 00:00:00 [id number] [facility] [address] [place] [address] 01/24/2010 00:00:00 [id number] [facility] [address] [place] [address] 06/07/2010 00:00:00 [id number] [facility] [address] [facility] [address] [place] [address] 08/30/2010 00:00:00 [id number] [facility] [address] [facility],[address] [place] [address] 11/21/2011 00:00:00 [id number] [facility] [address] [facility] [address] [place] [address] 03/19/2012 00:00:00 [id number] [facility] [address] [facility],[address] [place] [address] 04/23/2012 00:00:00 [id number] [facility] [address] [facility],[address] [place] [address] 06/18/2012 00:00:00 [id number] [facility] [address] [facility] [address] [place] [address] 08/19/2012 00:00:00 [id number] [facility] [address] [facility],[address] [place] [id number] 11/25/2012 00:00:00 [id number] [employer] [address] [facility] [place] [address] 01/09/2014 00:00:00 [id number] Main Office [address] [place] [address] 05/12/2014 08:03:54 05/12/2014 09:32:08 Adult health examination [id number] Needs infl uenza immunization 279021477 Body mass index 30+ - obesity 496264159 Tobacco de pendence syndrome 68023181 Essential hypertension 19454021 Low back pain 640640657 Hyperlipidemia 27333793 [id number] Ryan Bustos MD Main Office [address] [address] [place] [address] 11/02/2014 09:42:42 11/02/2014 10:19:22 Diverticulitis of colon 783521311 symptomati c improvemen t on abx, complete course of antibiotic [id number] Ryan Bustos MD Main Office [address] [address] [place] [address] 05/28/2015 16:19:08 05/28/2015 16:57:55 Diverticulitis of colon 439666136 K57.32 Patient w/ hx diverticul itis via CT in October, presents with the same symptoms. He does meet criterai for outpatient treatment. Will treat with cipro and flagyl x 10 days and have him f/u at that point. Should he have worsenign sx- fever > 102.5, N/V/D, unable to keep anything down he will go to ED. Stay well hydrated, clear liquids/ bland foods and advance as tolerated. He will need to see GI for screeing colonoscop y and for f/u of this. He verbalizes understand ing and agrees with plan. Screening for malignant neoplasm of colon 379858410 Z12.11 [id number] Ryan Bustos MD Main Office [address] [address] [place] [address] 08/25/2015 09:09:08 08/25/2015 10:14:52 Essential hypertension 40824763 I10 Screening for malignant neoplasm of colon 650464178 Z12.11 Hyperglycemia 26494405 R 73.9 Hyperlipidemia 20541591 E78.5 Malaise and fatigue 2717 01919 R53.83 Tobacco de pendence syndrome 62011962 F17.290 Gastroesop hageal reflux disease 712889827 K21.9 Body mass index 30+ - obesity 744919676 Z68.36 Health Concerns Section Related Observation LastModified by Organization Detai ls LastModified Time None Recorded Concern Status LastModified by Organization Details LastModified Time None Recorded Advance Directives Directive N: Payers Encounter Date Sequence Insurance Name Policy Number Policy Salazar Covered Member ID Salazar Member ID Guarantor Name 05/12/2014 1 [facility] (PPO) [id number] Ross PalBro [place] [id number] Ross Gilbert s 11/02/2014 1 [facility] (PPO) [id number] Ross PalBro ok [id number] Ross Gilbert s 05/28/2015 1 [facility] (PPO) [id number] Ross PalBro ok [id number] Ross Gilbert s 08/25/2015 1 [facility] (PPO) [id number] Ross PalBro ok [id number] Ross Gilbert s Notes Date Note Type Note Provider Name and Address Organization Details Recorded Time 11/02/2014 text/html H/o LLQ abdomina l pain started 3 days ago while visiting family in [place], progressively worsened within 2 hours. He went to ER, CT/labs done(in chart), dx with diverticulitis, given IVF/abx, sent home with PO cephalexin and metronidazole. Today he reports that pain has improved but still has some LLQ discomfort and that worsens when he stands up. No previous h/o diverticulitis but he did has similar but less severe symptoms about 2 months ago that resolved on its own within a few days without medical intervention. He denies fever, vomiting, diarrhea, hematachezia, melena. He is tolerating PO fluids. Ryan Bustos MD [address] [facility] [address], [place], [address], [facility] 11/02/2014 12:34:39 08/25/2015 text/html Notes symptoms o f chest pain over the last day. no association with exercise, eating, stress. Some GERD symptoms. notes no dyspnea, nausea, vomiting, diaphoresis. Dejuan has not been here for routine care in some time. Discussed need to monitor labs while he is being treated for HTN and hyperlipidemia. Notes that he is still smoking. Hoping to quit and reports high motivation. Did not tolerate Chantix because of distressing dreams. Ryan Bustos MD [address] [address], [place], [address], [facility] 08/25/2015 22:00:19 08/25/2015 text/html HeadacheReported bypatient.Notes:Notes posterior headaches without aura approx 2 times per week. Respond to OTC NSAIDs.Hypertension F/UReported bypatient.Associated Symptoms:no dizziness; no lightheadedness; no chest pain; no shortness of breath; no palpitations; no edema; no calf pain with exertion Lifestyle:limiting/bhavesh iding salt;not exercising regularly Medications:taking medications as directed; no side effects from medicationNotes:Not following home BP. Reports good medication adherence. Reviewed concerns about weight gain. Ryan Bustos MD [address] [address], [place], [address], [facility] 08/25/2015 22:00:19
--- OUTSIDE RECORDS SUMMARY | 2024-09-02 08:48 | XMS_ITS | Encounter Summary ---
Author Organization [facility] Address [address] [place] [address] Care Team Providers Care Vegetable Tester Name Role Phone Orlin Chambers MD Primary Care Provider [phone] Reason for Visit * Reason Comments Medication Refill Encounter Details Date Type Department Care Team (Late st Contact Info) Description 11/04/2019 Refill [facility]rell[facility] 10 100 [facility] 203 [place] [id number] Anayeli Del Rosario APRN 100 [facility] Liam [address] [place], [place] [id number] Anxiety Social History Tobacco Use Types Packs/Day [...] unspecified documented in this encounter Care Teams Vegetable Tester Relationship Specialty Start Date End Date Orlin Chambers MD [address] [address] PCP - General Family Medicine 01/29/19 08/16/23 Juma Harrington [facility] Pulmonary Medicine 11/23/21 documented as of this encounter
--- OUTSIDE RECORDS SUMMARY | 2024-09-02 08:48 | XMS_ITS | Encounter Summary ---
Author Organization [facility] Address [address] [place] [address] Care Team Providers Care Electronic Controls Repairer Supervisor Name Role Phone Orlin Chambers MD Primary Care Provider Encounter Details Date Type Department Care Team (Late st Contact Info) Description 01/25/2023 Scanned Document [facility] ORTHO SURGERY SCAN [place] [address] [address] Social History Tobacco Use Types Packs/Day Years [...] on filedocumented in this encounter Care Teams Electronic Controls Repairer Supervisor Relationship Specialty Start Date End Date Orlin Chambers MD [address] [place] [address] 203 [place] [address] PCP - General Family Medicine 01/29/19 08/16/23 Juma Harrington [facility] Pulmonary Medicine 11/23/21 documented as of this encounter
--- OUTSIDE RECORDS SUMMARY | 2024-09-02 08:48 | XMS_ITS | Encounter Summary ---
Author Organization [facility] Address [address] [place] [address] Care Team Providers Care Emergency Department Physician Name Role Phone Orlin Chambers MD Primary Care Provider [phone] Reason for Visit * Reason Comments Medication Refill Encounter Details Date Type Department Care Team (Late st Contact Info) Description 08/04/2019 Refill [facility] [address] [address] Orlin Chambers MD 100 [facility] [address] [place] [address] Insomnia, unspecified type Social History Tobacco Use [...] encounter Miscellaneous Notes * Telephone Encounter - Jenna Willett LPN - 08/05/2019 9:05 AM EST Please refill if appropriate. documented in this encounter Plan of Treatment Not on file documented as of this encounter Visit Diagnoses Diagnosis Insomnia, unspecified type documented in this encounter Care Teams Emergency Department Physician Relationship Specialty Start Date End Date Orlin Chambers MD [address] [address] PCP - General Family Medicine 01/29/19 08/16/23 Juma Harrington [facility] Pulmonary Medicine 11/23/21 documented as of this encounter
--- OUTSIDE RECORDS SUMMARY | 2024-09-02 08:48 | XMS_ITS | Encounter Summary ---
Author Organization [facility] Address [address] [place] [address] Care Team Providers Care Lens Blank Gauger Name Role Phone Orlin Chambers MD Primary Care Provider [phone] Reason for Visit * Reason Onset Date Comments Medication Refill 11/10/2022 Encounter Details Date Type Department Care Team (Late st Contact Info) Description 11/10/2022 Refill [facility] [address] [place] [address] 203 [place] [address] Orlin Chambers MD 100 [facility] Liam [address] [place], [place] [phone] Insomnia, unspecified type Social History Tobacco Use [...] encounter Miscellaneous Notes * Telephone Encounter - Pa Walden RN - 11/13/2022 11:27 AM EDT Duplicate documented in this encounter Plan of Treatment Not on file documented as of this encounter Visit Diagnoses Diagnosis Insomnia, unspecified type documented in this encounter Care Teams Lens Blank Gauger Relationship Specialty Start Date End Date Orlin Chambers MD 100 [place] [address] PCP - General Family Medicine 01/29/19 08/16/23 Juma Harrington [facility] Pulmonary Medicine 11/23/21 documented as of this encounter
--- OUTSIDE RECORDS SUMMARY | 2024-09-02 08:48 | XMS_ITS | Encounter Summary ---
Author Organization [facility] Address [address] [place] [address] Care Team Providers Care Editor Publications Name Role Phone Unavailable Primary Care Provider Unavailabl e Encounter Details Date Type Department Care Team ([facility] st Contact Info) Description 11/05/2023 Scanned Document [facility] CARDIOLOGY SCAN Cardiology, Scan Social History Tobacco Use Types Packs/Day [...] on filedocumented in this encounter Care Teams Editor Publications Relationship Specialty Start Date End Date Juma Harrington [facility] Pulmonary Medicine 11/23/21 documented as of this encounter
--- OUTSIDE RECORDS SUMMARY | 2024-09-02 08:48 | XMS_ITS | Encounter Summary ---
Author Organization [facility] Address [address] [place] [address] Care Team Providers Care Retort Engineer Name Role Phone Orlin Chambers MD Primary Care Provider [phone] Reason for Visit * Reason Onset Date Comments Medication Refill 11/13/2022 Encounter Details Date Type Department Care Team (Late st Contact Info) Description 11/13/2022 Refill [facility] [address] [place] [address] 203 [place] [address] Orlin Chambers MD 100 [facility] [address] [place], [place] [phone] Insomnia, unspecified type Social History Tobacco Use [...] type documented in this encounter Care Teams Retort Engineer Relationship Specialty Start Date End Date Orlin Chambers MD 100 [place] [address] PCP - General Family Medicine 01/29/19 08/16/23 Juma Harrington [facility] Pulmonary Medicine 11/23/21 documented as of this encounter
--- OUTSIDE RECORDS SUMMARY | 2024-09-02 08:48 | XMS_ITS | Encounter Summary ---
Author Organization [facility] Address [address] [place] [address] Care Team Providers Care Vacuum System Tester Name Role Phone Orlin Chambers MD Primary Care Provider [phone] Encounter Details Date Type Department Care Team (Late st Contact Info) Description 02/27/2023 Scanned Document [facility] EMERGENCY MED SCAN Emergency Medicine, Scan [...] on filedocumented in this encounter Care Teams Vacuum System Tester Relationship Specialty Start Date End Date Orlin Chambers MD [address] [place] [address] PCP - General Family Medicine 01/29/19 08/16/23 Juma Harrington [facility] Pulmonary Medicine 11/23/21 documented as of this encounter
--- OUTSIDE RECORDS SUMMARY | 2024-09-02 08:48 | XMS_ITS | Clinical Summary ---
Author Organization [facility] Address [address] [place] [address] Care Team Providers Care Golf Manager Name Role Phone Pcp, No MD Primary Care Provider Unavailabl e Medications chlorthalidone (HYGROTON) 25 mg tablet TAKE 1 TABLET BY ORAL ROUTE EVERY DAY 90 tablet 1 01/21/2018 Active meloxicam (MOBIC) 15 mg tablet TAKE 1 TABLET BY MOUTH EVERY DAY 30 tablet 02/11/2018 Active LORazepam (ATIVAN) 1 mg tablet Take 1 mg by mouth daily. 05/10/2017 Active simvastatin (ZOCOR) 80 mg tablet TAKE 1 TABLET BY MOUTH EVERY DAY AT NIGHT 30 tablet 08/27/2018 Active Social History Tobacco Use Types Packs/Day Years Used Date Smoking Tobacco: Never Assessed Sex and Gender Information Value Date Recorded Sex Assigned at Not on file Legal Sex Male 12:04 PM EST Gender Identity Not on file Sexual Orientation Not on file Plan of Treatment Health Maintenance Due Date Last Done Comments CT Colonography 1965 Colonoscopy 1965 Colorectal Cancer Screening 1965 FIT-DNA (Cologuard) 1965 FIT 1965 FOBT 1965 Flex Sigmoidoscopy - 5y 1965 HIV Screening 1965 Hepatitis B Vaccines (1 of 3 - 19+ 3-dose series) 02/16/1984 Zoster Vaccines (1 of 2) 2015 COVID-19 Vaccine ( - 2023-2 5 season) 2024 Influenza Vaccine (#1) 2024 07/18/2021 DTaP,Tdap,and Td Vaccines (2 - Td or Tdap) 06/20/2026 06/20/2016 HPV Vaccines Aged Out No longer eligi ble based on patient's age to complete this topic Hepatitis A Vaccines Aged Out No long er eligible based on patient's age to complete this topic MMR Vaccines Aged Out No longer eligi ble based on patient's age to complete this topic Meningococcal Vaccine Aged Out No silver svitlana eligible based on patient's age to complete this topic Pneumococcal Vaccine: Pediat rics (0 to 5 Years) and At-Risk Patients (6 to 64 Years) Aged Out No longer eligi ble based on patient's age to complete this topic Care Teams Golf Manager Relationship Specialty Start Date End Date PcpVonda MD [address] [place] [address] PCP - General Internal Medicine 02/21/21
--- OUTSIDE RECORDS SUMMARY | 2024-09-02 08:48 | XMS_ITS | Clinical Summary ---
Author Organization [facility] Address [address] [place] [address] Care Team Providers Care Program Rep Name Role Phone Unavailable Primary Care Provider Unavailabl e Allergies Active Allergy Reactions Criticality Noted Date Comments Aspirin GI Intolerance/Nausea/Vomiting Low 05/01 Medications Medication Sig Dispensed Refills Start Date End Date Status metFORMIN (GLUCOPHAGE) 500 MG tabletIndications:Typ e 2 diabetes mellitus without complication, without long-term current use of insulin (HCC) TAKE 1 TABLET BY MOUTH TWICE A DAY WITH MEALS 180 tablet 1 10/10/2022 Active chlorthalidone (HYGROTON) 25 MG tabletIndications:Ess ential hypertension Take 1 tablet (25 mg total) by mouth daily. 90 tablet 1 02/25/2023 Active amoxicillin-clavulana te (AUGMENTIN) 875-125 MG per tabletIndications:LLQ pain Take 1 tablet by mouth 2 (two) times a day. 20 tablet 02/27/2023 Active calcium gluconate 9.3 mg/mL Ca++ Take 1 capsule by mouth daily. Active buPROPion (WELLBUTRIN XL) 300 MG 24 hr tabletIndications:Anx iety Take 1 tablet (300 mg total) by mouth every morning. Swallow whole; do not crush, chew, or divide. 90 tablet 1 04/17/2023 Active simvastatin (ZOCOR) 80 MG tabletIndications:Hyp erlipidemia, unspecified hyperlipidemia type TAKE 1 TABLET BY MOUTH EVERY NIGHT 90 tablet 3 04/27/2023 Active LORazepam (ATIVAN) 2 MG tabletIndications:Ins omnia, unspecified type TAKE 1 TABLET BY MOUTH AT 8PM FOR SLEEP. THEN TAKE A SECOND TABLET NEEDED UPON AWAKENING AT 1AM 60 tablet 05/31/2023 Active sildenafil (VIAGRA) 50 MG tabletIndications:Ere ctile dysfunction, unspecified erectile dysfunction type TAKE 1 TABLET BY MOUTH DAILY NEEDED FOR ERECTILE DYSFUNCTION. 10 tablet 1 05/31/2023 Active losartan (COZAAR) 50 MG tabletIndications:Hyp ertension, unspecified type TAKE 1 TABLET BY MOUTH EVERY DAY 90 tablet 1 08/17/2023 Active Active Problems Problem Noted Date Diagnosed Date BMI 36.0-36.9,adult 06/09/2022 Type 2 diabetes mellitus wit hout complication, without long-term current use of insulin 06/09/2022 Elevated serum creatinine 06/09/2022 Erectile dysfunction 07/18/2021 Hypertension 06/08/2021 Nocturia 06/08/2021 Lumbar radiculopathy 08/23/2020 COPD (chronic obstructive pulmonary disease) 12/2018 Lung nodule 05/21/2019 Chronic pain of left knee 04/07/2019 Overview (04/07/2019): Referral to ortho Insomnia 04/07/2019 ТАТЬЯНА (obstructive sleep apnea) 03/13/2019 Assessment & Plan (03/13/2019 3:12 PM EDT): Consider CPAP once sleep study has been reviewed. Resolved Problems Problem Noted Date Diagnosed Date Resolved Date Depression 06/08/2021 07/18/2021 Simple chronic bronchitis 03/13/2019 Assessment & Plan (03/13/2019 3:13 PM EDT): Plan is to monitor no active medications Immunizations Name Administration Dates Next Due Covid-19 MRNA Vaccine - Pfiz er 12+ (Purple Cap) 07/18/2021,10/20/2020,09/29/2020 Influenza (AFLURIA/FLUZONE) Inactivated/Split Quadrivalent with Preservative IM 03/19/2012 Influenza Inactivated/Split Preservative Free IM 07/18/2021 Tdap 03/31/2008 Family History Medical History Relation Name Comments Diabetes Brother Jacobo Hypertension Brother Jacobo Cancer, Bladder Father Sloan Diabetes Father Sloan Heart attack Father Sloan Breast cancer Maternal Aunt Karsten Arthritis Maternal Grandmother Sari Hypertension Maternal Grandmother Sari Lung cancer Mother Karishma Relation Name Status Comments Brother Jacobo Alive Father Sloan Maternal Aunt Karsten Maternal Grandmother Sari Mother Karishma Social History Tobacco Use Types Packs/Day Years Used Date Smoking Tobacco: Former Cigarettes 1.5 30 0 04/06/1985 - 04/06/2015 Smokeless Tobacco: Never Tobacco Cessation:Counseling Given: Not Answered Alcohol Use Standard Drinks/Week Comments Not Currently 0 (1 standard drink = 0.6 oz pur e alcohol) Sex and Gender Information Value Date Recorded Sex Assigned at Not on file Gender Identity Male 06/07/2021 6:00 PM EST Sexual Orientation Homosexual (lesbian or chopra) 0 07/17/2021 6:18 PM EST Last Filed Vital Signs Vital Sign Reading Time Taken Comments Blood Pressure 108/80 03/08/2023 8:34 AM EDT Pulse 93 03/08/2023 8:34 AM EDT Temperature 36.2 ??C (97.2 ??F) 03/08/2023 8:34 AM ED T Respiratory Rate 16 03/08/2023 8:34 AM EDT Oxygen Saturation 97% 03/08/2023 8:34 AM EDT Inhaled Oxygen Concentration - - Weight 102 kg (225 lb 3.2 oz) 03/08/2023 8:34 AM EDT Height 168.9 cm (5' 6.5 ) 03/08/2023 8:34 AM EDT Body Mass Index 35.8 03/08/2023 8:34 AM EDT Plan of Treatment Health Maintenance Due Date Last Done Comments Hepatitis C Virus Screening 1965 Pneumococcal Vaccine: Pediat junito (0-5 Years) and At-Risk Patients (6 to 49 Years) (1 of 2 - PCV) 1971 Foot Exam 1975 Ophthalmology Exam 1975 HIV Screening 1978 Hepatitis B Vaccines (1 of 3 - 19+ 3-dose series) 02/16/1984 Pneumococcal Vaccines 50+ (1 of 2 - PCV) 02/16/1984 Colonoscopy 2010 Zoster (Shingles) Vaccine (1 of 2) 2015 DTaP/Tdap/Td Vaccines (2 - T d or Tdap) 03/31/2018 03/31/2008 Lung Cancer Screening (LDCT) 05/29/2020 05/29/2019, 05/28/2019 Hemoglobin A1C 12/04/2022 06/06/2022, 12/07/2021 Lipid Panel 12/07/2022 12/07/2021, 07/16, 07/02/2020 Creatinine with GFR 06/06/2023 06/06/2022, 12/07/2021, 07/29/2021, Additional history exists Microalbumin/Creatinine Rati o Urine 06/06/2023 06/06/2022 Influenza Vaccine 02/14/2024 07/18/2021, , 03/19/2012 COVID-19 Vaccine (2023-2 5 season) 2024 07/18/2021, 10/20/2020, 09/29/2020 Procedures Procedure Name Priority Date/Time Associated Diagnosis Comments MICROALBUMIN, CREATININE, URINE, RANDOM Routine 06/06/2022 8:55 AM EST Type 2 diabetes mellitus without complication, without long-term current use of insulin (HCC) HEMOGLOBIN A1C Routine 06/06/2022 8:55 AM EST Type 2 diabetes mellitus without complication, without long-term current use of insulin (HCC) BASIC METABOLIC PANEL Routine 06/06/2022 8:55 AM EST Type 2 diabetes mellitus without complication, without long-term current use of insulin (HCC) LIPID PANEL REFLEX DIRECT LDL Routine 12/07/2021 8:13 AM EDT Hypertension, unspecified type Adult BMI 37.0-37.9 kg/sq m CT THORAX W/O CONTRAST Routine 05/29/2019 9:23 AM EST Lung nodule from Last 3 Months or Most Recently Relevant to Health Maintenance Results * (ABNORMAL) Microalbumin, Creatinine, Urine, Random (06/06/2022 8:55 AM EST) Pathologist [facility] [place] Creatinine, Urine, Random 242 20 - 320 mg/dL [facility] Microalbumin, Urine, Random 12.1 See Note: mg/dL [facility] Comment: Reference Range: Reference Range Not established Microalbumin/Creat inine Ratio 50(H) <30 mcg/mg creat [facility] Comment: The ADA defines abnormalities in albumin excretion as follows: Albuminuria Category ?Result (mcg/mg creatinine) Normal to Mildly increased ?? <30 Moderately increased ? 30-299 Severely increased ? > OR = 300 The ADA recommends that at least two of three specimens collected within a 3-6 month period be abnormal before considering a patient to be within a diagnostic category. Urine 06/06/2022 8:55 AM EST 06/06/2022 8:55 AM EST Narrative [facility] - 06/07/2022 4:59 PM EST FASTING:YES FASTING: YES Orlin Chambers MD URINE ORDERABLES [employer] [employer] [address] [place] [address], [place] [address] * (ABNORMAL) Hemoglobin A1c (06/06/2022 8:55 AM EST) Hemoglobin A1C 6.5(H) <5.7 % of total Hgb [facility] Comment: For someone without known diabetes, a hemoglobin A1c value of 6.5% or greater indicates that they may have diabetes and this should be confirmed with a follow-up test. For someone with known diabetes, a value <7% indicates that their diabetes is well controlled and a value greater than or equal to 7% indicates suboptimal control. A1c targets should be individualized based on duration of diabetes, age, comorbid conditions, and other considerations. Currently, no consensus exists regarding use of hemoglobin A1c for diagnosis of diabetes for children. ?? Blood specimen (specimen) Blood specimen / Unknown 06/06/2022 8:55 AM EST 06/06/2022 8:55 AM EST Narrative [facility] - 06/07/2022 4:59 PM EST FASTING:YES FASTING: YES Orlin Chambers MD LAB BLOOD ORDERABLES Performing Organization Address City/[facility]/ZIP Co de Phone Number [employer] [address] [address] * (ABNORMAL) Basic Metabolic Panel (06/06/2022 8:55 AM EST) Glucose 129(H) 65 - 99 mg/dL [facility] Comment: ? Fasting reference interval For someone without known diabetes, a glucose value >125 mg/dL indicates that they may have diabetes and this should be confirmed with a follow-up test. Blood Urea Nitrogen (BUN) 33(H) 7 - 25 mg/dL [facility] Creatinine 1.49(H) 0.70 - 1.30 mg/dL [facility] Creatinine w/ eGFR 54(L) > OR = 60 mL/min/1.7 3m2 [facility] Comment: The eGFR is based on the CKD-EPI 2020 equation. To calculate the new eGFR from a previous Creatinine or Cystatin C result, go to https://www.kidney.org/professionals/ kdoqi/gfr%5Fcalculator BUN/Creatinine Ratio 22 6 - 22 (calc) [facility] Sodium 139 135 - 146 mmol/L [facility] Potassium 4.1 3.5 - 5.3 mmol/L [facility] Chloride 102 98 - 110 mmol/L [facility] CO2 27 20 - 32 mmol/L [facility] Calcium 9.5 8.6 - 10.3 mg/dL [facility] Blood specimen (specimen) 06/06/2022 8:55 AM EST 06/06/2022 8:55 AM EST Narrative [facility] - 06/07/2022 4:59 PM EST FASTING:YES FASTING: YES Orlin Chambers MD LAB BLOOD ORDERABLES Performing Organization Address City/[facility]/ZIP Co de Phone Number [employer] [address], [place] [address] * (ABNORMAL) Lipid Panel [facility] Direct LDL (12/07/2021 8:13 AM EDT) Cholesterol, Total 191 <200 mg/dL [facility] Cholesterol, HDL 48 > OR = 40 mg/dL [facility] Triglycerides 237(H) <150 mg/dL [facility] Comment: If a non-fasting specimen was collected, consider repeat triglyceride testing on a fasting specimen if clinically indicated. Chris et al. J. of Clin. Lipidol. 2015;9:129-169. LDL Cholesterol 107(H) mg/dL (calc) [facility] Comment: Reference range: <100 Desirable range <100 mg/dL for primary prevention; ?? <70 mg/dL for patients with CHD or diabetic patients with > or = 2 CHD risk factors. LDL-C is now calculated using the Michael-Rosario calculation, which is a validated novel method providing better accuracy than the Friedewald equation in the estimation of LDL-C. Michael SS et al. ELSY. 2013;310(19): 5929-2889 (http://education.[employer]/faq/AMA247) Cholesterol/HDL Ratio 4.0 <5.0 (calc) [facility] Non HDL Chol. (LDL+VLDL) 143(H) <130 mg/dL (calc) [facility] Comment: For patients with diabetes plus 1 major ASCVD risk factor, treating to a non-HDL-C goal of <100 mg/dL (LDL-C of <70 mg/dL) is considered a therapeutic option. Blood specimen (specimen) 12/07/2021 8:13 AM EDT 12/07/2021 8:13 AM EDT Narrative [facility] - 12/08/2021 12:09 AM EDT FASTING:YES FASTING: YES Orlin Chambers MD LAB BLOOD ORDERABLES [employer] [address], [place] [address] * CT Thorax w/o contrast (05/29/2019 9:23 AM EST) Anatomical Region Laterality Modality Chest Computed Tomogra phy 05/28/2019 9:15 AM EST 05/28/2019 9:15 AM EST Impressions 05/29/2019 9:23 AM EST 1. Multiple small bilateral pulmonary nodules measuring up to 7 mm within the left costophrenic angle. Comparison to prior imaging is recommended to evaluate for interval change. According to the UPDATED 2017 Fleischner Society recommendations, the advised follow up imaging for multiple solid nodules, the largest measuring 6 mm or greater, is: LOW-RISK PATIENT: CT at 3-6 months, then consider CT at 18-24 months from initial examination. HIGH-RISK PATIENT: CT at 3-6 months, then at 18-24 months from initial examination. 2. Tiny splenic calcifications, consistent with prior granulomatous disease. 3. Diverticulosis. Thank you for referring your patient to us, Travis Villarreal MD [phone] (Electronically Signed - 05/29/2019 09:23) Copy: ORLIN CHAMBERS DO [facility] [address] [employer] [facility] [facility] [place] [address] PATIENT , ?? Narrative 05/29/2019 9:23 AM EST EXAMINATION: CT CHEST WITHOUT CONTRAST CLINICAL INFORMATION: Left lower lobe pulmonary nodule. COMPARISON: No relevant prior studies are available for comparison. TECHNIQUE: Multidetector volumetric CT imaging of the chest was done. Axial MIP volume rendering provided. Sagittal and coronal reformatted images were obtained. DLP: 523.69 mGy-cm FINDINGS: SUPERVISOR RIPRAP PLACING: Unremarkable. LUNGS: There is a 3 mm nodule medially within the right upper lobe (axial image 151/505). There is an adjacent 1-2 mm nodule (axial image 158/505). There is an irregular 0.6 cm nodule within the right upper lobe (axial image 180/505). There is a 3 mm subpleural nodule along the superior aspect of the right mediastinum (axial image 207/505). There is a 2-3 mm central right upper lobe nodule (axial image 271/505). There is a 2 mm right upper lobe nodule more anteriorly (axial image 279/505). There is a 6 mm subpleural calcified granuloma within the right costophrenic angle (axial image 398/505). There is a 2 mm anterior left upper lobe pulmonary nodule (axial image 117/505). There is a 3 mm nodule within the apex of the left lower lobe (axial image 187/505). There is a 2 mm nodule anteriorly within the left upper lobe (axial image 217/505). There is a 4 mm nodule laterally within the left upper lobe (axial image 259/505). There is a 3 mm nodule within the left costophrenic angle (axial image 335/505). There is a 7 mm subpleural nodule within the left costophrenic angle (axial image 363/505). No large pulmonary mass or confluent airspace consolidation. ?? PLEURA: No pleural effusion or pneumothorax. No pleural mass or thickening. MEDIASTINUM: No cardiomegaly. No significant pericardial effusion. No thoracic aortic dilatation. No significant mediastinal or hilar lymphadenopathy. CHEST WALL/AXILLAE: No lymphadenopathy. ?? THYROID: Atrophic. UPPER ABDOMEN: Tiny calcifications within the splenic parenchyma, consistent with prior granulomatous disease. Diverticulosis. Otherwise, the visualized upper abdominal structures are unremarkable. ?? OSSEOUS STRUCTURES: No lytic or blastic osseous lesion. ?? Procedure Note Travis Villarreal MD - 05/29/2019 EXAMINATION: CT CHEST WITHOUT CONTRAST CLINICAL INFORMATION: Left lower lobe pulmonary nodule. COMPARISON: No relevant prior studies are available for comparison. TECHNIQUE: Multidetector volumetric CT imaging of the chest was done. Axial MIPvolume rendering provided. Sagittal and coronal reformatted images were obtained. DLP: 523.69 mGy-cm FINDINGS: SUPERVISOR RIPRAP PLACING: Unremarkable. LUNGS: There is a 3 mm nodule medially within the right upper lobe(axial image 151/505). There is an adjacent 1-2 mm nodule (axial /505). There is an irregular 0.6 cm nodule within the right upper lobe (axialimage 180/505). There is a 3 mm subpleural nodule along the superior aspect ofthe right mediastinum (axial image 207/505). There is a 2-3 mm central rightupper lobe nodule (axial image 271/505). There is a 2 mm right upper lobenodule more anteriorly (axial image 279/505). There is a 6 mm subpleuralcalcified granuloma within the right costophrenic angle (axial image 398/505). There is a 2 mm anterior left upper lobe pulmonary nodule (axial image 117/505). There is a 3 mm nodule within the apex of the left lower lobe(axial image 187/505). There is a 2 mm nodule anteriorly within the left upperlobe (axial image 217/505). There is a 4 mm nodule laterally within the leftupper lobe (axial image 259/505). There is a 3 mm nodule within the left costophrenic angle (axial image 335/505). There is a 7 mm subpleuralnodule within the left costophrenic angle (axial image 363/505). No large pulmonary mass or confluent airspace consolidation. PLEURA: No pleural effusion or pneumothorax. No pleural mass orthickening. MEDIASTINUM: No cardiomegaly. No significant pericardial effusion. Nothoracic aortic dilatation. No significant mediastinal or hilar lymphadenopathy. CHEST WALL/AXILLAE: No lymphadenopathy. THYROID: Atrophic. UPPER ABDOMEN: Tiny calcifications within the splenic parenchyma,consistent with prior granulomatous disease. Diverticulosis. Otherwise, thevisualized upper abdominal structures are unremarkable. OSSEOUS STRUCTURES: No lytic or blastic osseous lesion. IMPRESSION: 1. Multiple small bilateral pulmonary nodules measuring up to 7 mm withinthe left costophrenic angle. Comparison to prior imaging is recommended to evaluate for interval change. According to the UPDATED 2017 [facility] recommendations, the advised follow up imaging for multiple solid nodules,the largest measuring 6 mm or greater, is: LOW-RISK PATIENT: CT at 3-6 months, then consider CT at 18-24 monthsfrom initial examination. HIGH-RISK PATIENT: CT at 3-6 months, then at 18-24 months from initial examination. 2. Tiny splenic calcifications, consistent with prior granulomatousdisease. 3. Diverticulosis. Thank you for referring your patient to us, Travis Villarreal MD [phone] (Electronically Signed - 05/29/2019 09:23) Copy: ORLIN CHAMBERS DO [facility] [address] [facility] [address] PATIENT , Kelly Bustillo MD IMG CT ORDERABLES from Last 3 Months or Most Recently Relevant to Health Maintenance Care Teams Program Rep Relationship Specialty Start Date End Date Juma Harrington [facility] Pulmonary Medicine 11/23/21
--- OUTSIDE RECORDS SUMMARY | 2024-09-02 08:48 | XMS_ITS | Encounter Summary ---
Author Organization [facility] Address [address] [place] [address] Care Team Providers Care Manager Inventory Name Role Phone Orlin Chambers MD Primary Care Provider [phone] Reason for Visit * Reason Comments Medication Refill Encounter Details Date Type Department Care Team (Late st Contact Info) Description 08/04/2019 Refill [facility] 10 100 [facility] [address] [place] [address] Anayeli Del Rosario, FRYLINE ATTENDANT 100 [facility] [address] [place], [place] [id number] Hyperlipidemia, unspecified hyperlipidemia type Social History Tobacco Use Types Packs/Day [...] Encounter - Jenna Willett LPN - 08/05/2019 9:04 AM EST Please refill if appropriate. No lipid panel on file. documented in this encounter Plan of Treatment Not on file documented as of this encounter Visit Diagnoses Diagnosis Hyperlipidemia, unspecified hyperlipidemia type documented in this encounter Care Teams Manager Inventory Relationship Specialty Start Date End Date Orlin Chambers MD [address] [place] [address] PCP - General Family Medicine 01/29/19 08/16/23 Juma Harrington [facility] Pulmonary Medicine 11/23/21 documented as of this encounter
--- OUTSIDE RECORDS SUMMARY | 2024-09-02 08:49 | XMS_ITS | Encounter Summary ---
Author Organization [facility] Address [address] [place] [address] Care Team Providers Care Toy Trains And Accessories Salesperson Name Role Phone Orlin Chambers MD Primary Care Provider Encounter Details Date Type Department Care Team (Late st Contact Info) Description 09/08/2020 Scanned Document [facility] [address] [place] [id number] Provider, External, [address] [place] [address] Social History Tobacco Use Types Packs/Day Years Used Date Smoking Tobacco: Never Smokeless Tobacco: Never Alcohol Use Standard Drinks/Week Comments Not Currently 0 (1 standard drink = 0.6 oz pur e alcohol) Sex and Gender Information Value Date Recorded Sex Assigned at Not on file Gender Identity Male 06/07/2021 6:00 PM EST Sexual Orientation Homosexual (lesbian or chopra) 0 07/17/2021 6:18 PM EST COVID-19 Exposure Response Date Recorded In the last month, have you been in contact with someone who was confirmed or suspected to have Coronavirus / COVID-19? Unable to assess 08/23/2020 1:36 PM EST documented as of this encounter Plan of Treatment Not on file documented as of this encounter Visit Diagnoses Not on filedocumented in this encounter Care Teams Toy [employer] Accessories Salesperson Relationship Specialty Start Date End Date Orlin Chambers MD [address] [place] [address] PCP - General Family Medicine 01/29/19 08/16/23 Juma Harrington [facility] Pulmonary Medicine 11/23/21 documented as of this encounter
--- OUTSIDE RECORDS SUMMARY | 2024-09-02 08:49 | XMS_ITS | Clinical Summary ---
Author Organization [facility] Address [address] [place] [address] Care Team Providers Care Materials Branch Chief Name Role Phone Orlin Chambers Primary Care Provider [phone] Allergies No known active allergies Medications Medication Sig Dispensed Refills Start Date End Date Status chlorthalidone (HYGROTON) 25 MG tablet daily. 0 01/21/2018 Active simvastatin (ZOCOR) 80 MG tablet daily. 0 08/27/2018 Active LORazepam (ATIVAN) 1 MG tablet Take 1 mg by mouth. 0 05/10/2017 Active oxyCODONE-acetaminophe n (PERCOCET) 5-325 MG per tablet 1-2 PO Q4-6 HOURS PRN 20 tablet 0 06/03/2019 Active Active Problems No known active problems Social History Tobacco Use Types Packs/Day Years Used Date Smoking Tobacco: Former Smokeless Tobacco: Never Comments:Mar 2017 Alcohol Use Standard Drinks/Week Comments Yes 0 (1 standard drink = 0.6 oz pur e alcohol) rare < 1 per month Sex and Gender Information Value Date Recorded Sex Assigned at Male 05/08/2019 9:46 AM EDT Gender Identity Male 05/09/2019 3:57 PM EDT Sexual Orientation Not on file Last Filed Vital Signs Vital Sign Reading Time Taken Comments Blood Pressure 110/80 06/03/2019 10:18 AM EST Pulse 73 06/03/2019 10:18 AM EST Temperature 36.1 ??C (97 ??F) 06/03/2019 10:00 AM EST Respiratory Rate 14 06/03/2019 10:18 AM EST Oxygen Saturation 97% 06/03/2019 10:18 AM EST Inhaled Oxygen Concentration - - Weight 99.8 kg (220 lb) 05/29/2019 4:15 PM EST Height 171.5 cm (5' 7.5 ) 05/29/2019 4:15 PM EST Body Mass Index 33.95 05/29/2019 4:15 PM EST Plan of Treatment Health Maintenance Due Date Last Done Comments Hepatitis B Vaccines (1 of 3 - 3-dose series) 1965 Hepatitis C Screening 1965 COVID-19 Vaccine (#1) 1965 Depression Screening 1977 BMI Counseling 1983 Preventative Health Evaluation 1983 Colon Cancer Screening (Colonoscopy) 2010 Shingrix-Zoster Vaccine (1 of 2) 2015 DTap / Tdap / Td (2 - Td or Tdap) 03/31/2018 008 Influenza Vaccine (#1) 2024 03/19/2012 Pneumococcal Vaccine Aged Out No long er eligible based on patient's age to complete this topic RSV Ped < 20 months Aged Out No longe r eligible based on patient's age to complete this topic Care Teams Materials Branch Chief Relationship Specialty Start Date End Date Orlin Chambers DO PCP - General Family Medicine 06/17/18
--- OUTSIDE RECORDS SUMMARY | 2024-09-02 08:49 | XMS_ITS | Encounter Summary ---
Author Organization [facility] Address [address] [place] [address] Care Team Providers Care Paste Mixer Liquid Name Role Phone Orlin Chambers MD Primary Care Provider [phone] Encounter Details Date Type Department Care Team (Late st Contact Info) Description 10/18/2020 Scanned Document [facility] 10 100 [facility] 203 [place] [address] Michael Sweeney MD [address] [place] [address] [address] [place] [address] Social History Tobacco Use Types Packs/Day Years [...] on filedocumented in this encounter Care Teams Paste Mixer Liquid Relationship Specialty Start Date End Date Orlin Chambers MD 100 [facility] [address] [place], [place] [id number] PCP - General Family Medicine 01/29/19 08/16/23 Juma Harrington [facility] Pulmonary Medicine 11/23/21 documented as of this encounter
--- OUTSIDE RECORDS SUMMARY | 2024-09-02 08:49 | XMS_ITS | Encounter Summary ---
Author Organization [facility] Address [address] [place] [address] Care Team Providers Care Rn Ed Name Role Phone Orlin Chambers MD Primary Care Provider [phone] Encounter Details Date Type Department Care Team (Late st Contact Info) Description 11/01/2020 Scanned Document [facility] ORTHO SURGERY SCAN Orthopedic Surgery, Scan Social History Tobacco Use Types Packs/Day [...] on filedocumented in this encounter Care Teams Rn Ed Relationship Specialty Start Date End Date Orlin Chambers MD [address] [address] PCP - General Family Medicine 01/29/19 08/16/23 Juma Harrington [facility] Pulmonary Medicine 11/23/21 documented as of this encounter
--- OUTSIDE RECORDS SUMMARY | 2024-09-02 08:49 | XMS_ITS | Encounter Summary ---
Author Organization [facility] Address [address] [place] [address] Care Team Providers Care Needle Punch Machine Operator Name Role Phone Orlin Chambers MD Primary Care Provider Encounter Details Date Type Department Care Team (Late st Contact Info) Description 08/24/2020 Scanned Document [facility] [address] [place] [phone] Provider, External, [address] [place] [address] Social History Tobacco Use Types Packs/Day Years [...] on filedocumented in this encounter Care Teams Needle Punch Machine Operator Relationship Specialty Start Date End Date Orlin Chambers MD 100 [place] [address] PCP - General Family Medicine 01/29/19 08/16/23 Juma Harrington [facility] Pulmonary Medicine 11/23/21 documented as of this encounter
--- OUTSIDE RECORDS SUMMARY | 2024-09-02 08:49 | XMS_ITS | Encounter Summary ---
Author Organization [facility] Address [address] [place] [address] Care Team Providers Care Parcel Post Delivery Name Role Phone Orlin Chambers MD Primary Care Provider [phone] Encounter Details Date Type Department Care Team (Late st Contact Info) Description 05/25/2019 Scanned Document [facility] Pulmonary and Critical Care- [address] [phone] Kelly Bustillo MD [address] [place] [address] Social History Tobacco Use Types Packs/Day Years [...] on filedocumented in this encounter Care Teams Parcel Post Delivery Relationship Specialty Start Date End Date Orlin Chambers MD [address] [place] [id number] PCP - General Family Medicine 01/29/19 08/16/23 Juma Harrington [facility] Pulmonary Medicine 11/23/21 documented as of this encounter
--- OUTSIDE RECORDS SUMMARY | 2024-09-02 08:49 | XMS_ITS | Encounter Summary ---
Author Organization [facility] Address [address] [place] [address] Care Team Providers Care Rehanger Name Role Phone Orlin Chambers MD Primary Care Provider [phone] Encounter Details Date Type Department Care Team (Late st Contact Info) Description 01/29/2019 Scanned Document [facility] 10 100 [facility] [address] [place] [address] Provider, Hortencia, [address] [place] [address] Social History Tobacco Use Types Packs/Day Years [...] on filedocumented in this encounter Care Teams Rehanger Relationship Specialty Start Date End Date Orlin Chambers MD 100 [facility] [address] [place], [place] [id number] PCP - General Family Medicine 01/29/19 08/16/23 Juma Harrington [facility] Pulmonary Medicine 11/23/21 documented as of this encounter
--- OUTSIDE RECORDS SUMMARY | 2024-09-02 08:49 | XMS_ITS | Encounter Summary ---
Author Organization [facility] Address [address] [place] [address] Care Team Providers Care Engineering Design Supervisor Name Role Phone Orlin Chambers MD Primary Care Provider Reason for Visit * Reason Comments Medication Refill Encounter Details Date Type Department Care Team (Late st Contact Info) Description 02/01/2020 Refill [facility] 10 100 [facility] [address] [place] [address] Anayeli Del Rosario, REY 100 [facility] [address] [place], [place] [phone] Anxiety Social History Tobacco Use Types Packs/Day [...] encounter Miscellaneous Notes * Telephone Encounter - Lauryn Palumbo RN - 02/01/2020 9:55 PM EDT appt needed last visit May 2019 documented in this encounter Plan of Treatment Not on file documented as of this encounter Visit Diagnoses Diagnosis Anxiety Anxiety state, unspecified documented in this encounter Care Teams Engineering Design Supervisor Relationship Specialty Start Date End Date Orlin Chambers MD [address] [address] PCP - General Family Medicine 01/29/19 08/16/23 Juma Harrington [facility] Pulmonary Medicine 11/23/21 documented as of this encounter
--- OUTSIDE RECORDS SUMMARY | 2024-09-02 08:49 | XMS_ITS | Clinical Summary ---
Author Organization [facility] Address [address] [place] [address] Care Team Providers Care Chief Yeoman Name Role Phone Orlin Chambers DO Primary Care Provider [phone] Surgical History Surgery Date Site/Laterality Comments WISDOM TOOTH EXTRACTION PROCEDURE:WISDOM TOOTH EXTRACTION KNEE ARTHROSCOPY 06/03/2019 Left PROCEDURE:KNEE ARTHROSCOPY;COMMENT:Procedure: LEFT KNEE ARTHROSCOPY, PARTIAL MEDIAL MENISCECTOMY; Surgeon: David Pack MD; Location: [facility] AMBULATORY SURGERY; Service: CSMI; Laterality: Left; Medical History Medical History Date Comments Hypertension DX:Hypertension Hyperlipidemia DX:Hyperlipidemi a Anxiety DX:Anxiety Social History Tobacco Use Types Packs/Day Years Used Date Smoking Tobacco: Former Smokeless Tobacco: Never Alcohol Use Standard Drinks/Week Comments Yes 0 (1 standard drink = 0.6 oz pur e alcohol) Sex and Gender Information Value Date Recorded Sex Assigned at Not on file Legal Sex Male 7:47 PM EST Gender Identity Not on file Sexual Orientation Not on file Obstetrics History Plan of Treatment Health Maintenance Due Date Last Done Comments DTaP,Tdap,and Td Vaccines (1 - Tdap) 02/16/1984 Hepatitis B Vaccines (1 of 3 - 19+ 3-dose series) 02/16/1984 Pneumococcal Vaccine: 50+ Ye ars (1 of 1 - PCV) 2015 Zoster Vaccines (1 of 2) 2015 COVID-19 Vaccine ( - 2023-2 5 season) 2024 Influenza Vaccine (#1) 2024 RSV Immunization Patients 60 + Years Old (1 - 1-dose 75+ series) 02/16/2040 HIB Vaccines Aged Out No longer eligi ble based on patient's age to complete this topic HPV Vaccines Aged Out No longer eligi ble based on patient's age to complete this topic Hepatitis A Vaccines Aged Out No long er eligible based on patient's age to complete this topic IPV Vaccines Aged Out No longer eligi ble based on patient's age to complete this topic MMR Vaccines Aged Out No longer eligi ble based on patient's age to complete this topic Meningococcal ACWY Vaccine Aged Out N o longer eligible based on patient's age to complete this topic Meningococcal B Vacine Aged Out No lo nger eligible based on patient's age to complete this topic Pneumococcal Vaccine: Pediat rics (0 to 5 Years) and At-Risk Patients (6 to 64 Years) Aged Out No longer eligible b ased on patient's age to complete this topic RSV Immunization Patients Un cindy 20 months Aged Out No longer eligible b ased on patient's age to complete this topic Varicella Vaccines Aged Out No longer eligible based on patient's age to complete this topic Care Teams Chief Yeoman Relationship Specialty Start Date End Date Orlin Chambers DO [address] [place] [id number] PCP - General Family Medicine 06/17/18
--- OUTSIDE RECORDS SUMMARY | 2024-09-02 08:49 | XMS_ITS | Encounter Summary ---
Author Organization [facility] Address [address] [place] [address] Care Team Providers Care Solar Sales Associate Name Role Phone Orlin Chambers MD Primary Care Provider [phone] Encounter Details Date Type Department Care Team (Late st Contact Info) Description 12/06/2022 Scanned Document [facility] [address] [place] [phone] Cardiology, Scan Social History Tobacco Use Types [...] Exposure Response Date Recorded In the last 10 days, have yo u been in contact with someone who was confirmed or suspected to have Coronavirus/COVID-19? No / Unsure 12/06/2022 8:22 AM EDT documented as of this encounter Plan of Treatment Not on file documented as of this encounter Visit Diagnoses Not on filedocumented in this encounter Care Teams Solar Sales Associate Relationship Specialty Start Date End Date Orlin Chambers MD [address] [address] PCP - General Family Medicine 01/29/19 08/16/23 Juma Harrington [facility] Pulmonary Medicine 11/23/21 documented as of this encounter
== END 2024-09-02 09:00 | disposition home or self-care (01) ==
PROVIDERS: PCP Physician Assistant; Visit Provider Hospitalist
DX: R91.1 Solitary pulmonary nodule (principal); G47.33 Obstructive sleep apnea (adult) (pediatric); Z12.2 Encounter for screening for malignant neoplasm of respiratory organs; R06.09 Other forms of dyspnea
CPT/HCPCS: 99214

== ENCOUNTER → 2024-09-02 08:28 | Outpatient (BNVA) | payer OTHER, SELFPAY | PROVIDERS: PCP Physician Assistant; Visit Provider Hospitalist ==

== ENCOUNTER 2024-09-12 07:48 | Outpatient (REF) | payer OTHER, SELFPAY ==
--- NOTE | 2024-09-12 08:11 | PFT_ITS ---
Flows: FEV1: 100 % of predicted at 3.26 L FVC: 102 % of predicted at 4.27 L FEV1/FVC: 76 % Bronchodilator response: Absent Volumes: Total lung capacity: 92 % of predicted at 6.01 L Residual volume: 86 % of predicted at 1.70 L Slow vital capacity: 93 % of predicted at 4.30 L Expiratory reserve volume: 8 % of predicted at 0.09 L Diffusion capacity: Normal Impression: No obstructive or restrictive ventilatory defect. No bronchodilator response. Decreased expiratory reserve volume suggests extrathoracic restriction likely secondary to abdominal obesity. MTDD
[2024-09-12 08:48] VITALS: PULSE 98
[2024-09-12 10:56] LABS: Anion Gap 14 (12-20); Blood Urea Nitrogen 33 mg/dL (9-16); Calcium 10.1 mg/dL (8.4-10.2); Carbon Dioxide 25 mmol/L (22-29); Chloride 105 mmol/L (96-108); Estimated Glomerular Filt Rate > 60; Glucose Random 126 mg/dL (60-115); Potassium 3.7 mmol/L (3.3-5.1); Sodium 140 mmol/L (135-145)
== END 2024-09-12 07:49 | disposition home or self-care (01) ==
LOC: HO.RESP 07:48
PROVIDERS: Absent Provider Physician Assistant; PCP Physician Assistant; Visit Provider Hospitalist
DX: R06.09 Other forms of dyspnea (principal); R79.89 Other specified abnormal findings of blood chemistry
CPT/HCPCS: 36415; 80048; 94010; 94640; 94727; 94729

== ENCOUNTER → 2024-09-12 08:11 | Outpatient (BNV) | payer OTHER, SELFPAY | PROVIDERS: Absent Provider Physician Assistant; PCP Physician Assistant; Visit Provider Internal Medicine Pulmonary Disease | DX: R06.09 Other forms of dyspnea (principal) | CPT/HCPCS: 94060; 94727; 94729 ==

== ENCOUNTER 2024-09-30 09:03 | Outpatient (AMB) | payer OTHER, SELFPAY ==
[2024-09-30 09:12] VITALS: BP 144/84; PULSE 89; O2SAT 98; BMI 38.5
--- NOTE | 2024-09-30 09:12 | MHC.PC.OV ---
Vital Signs 09/30/24 09:12 Height 5 ft 7 in Weight 246 lb BMI 38.5 BP 144/84 H Blood Pressure Location Lt brachial Position Sitting Pulse 89 Pulse Source Pulse Oximeter Pulse Oximetry (%) 98 Oxygen Delivery Method Room Air Intake Visit Reasons: f/u DMII/ HTN Decorating Consultant Required: No Accompanied by: Self / Same As Patient Allergies No Known Allergies [No Known Allergies*] Allergy (Verified 09/30/24 09:35) Medication List - Last Reconciled 09/30/24 by Jas Byrd PA-C bupropion HCl XL 150 mg PO BEDTIME chlorthalidone 25 mg PO BEDTIME 90 days CPAP (CPAP Machine/Device) As directed fluticasone propionate 50 mcg/actuation 2 sprays intranasal DAILY 30 days hydroxyzine HCl 25 mg PO BEDTIME 30 days lorazepam 0.5 mg PO BID 30 days losartan 50 mg PO BEDTIME meloxicam 15 mg PO DAILY PRN metformin 500 mg PO DAILY omeprazole 20 mg PO DAILY 90 days semaglutide (Ozempic) 0.5 mg (0.736 mL) subcut QWEEK 4 weeks semaglutide (Ozempic) 1 mg (0.75 mL) subcut QWEEK 4 weeks sildenafil 50 mg PO DAILY PRN simvastatin 80 mg PO BEDTIME trazodone 50 mg PO BEDTIME 90 days Tobacco use date assessed: 09/30/24 Dental Screening Dental Screen Date: 09/30/24 Did you have a dental visit in the last 12 months?: Yes Did you have a dental problem in the last 6 months where you did not have access to dental care?: No Was dental information given to patient?: Patient has dentist HPI f/u DMII/ HTN HPI Details Patient is a 59-year-old male here today for a follow-up visit Patient has a past medical history significant for hypertension, obesity, anxiety hyperlipidemia, diverticulosis ТАТЬЯНА type 2 diabetes. .. Anxiety: Has drastically reduce the amount of lorazepam using. Has tried buspirone 5 mg b.i.d. though had side effect of sleeping disturbance. 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 The patient is on Ativan for anxiety-related insomnia, which contributes to memory concerns. There is a notable family history of neoplasms, specifically the patient's mother having been diagnosed with brain cancer originating in the lungs at age 59, resulting in increased apprehension concerning his identical age and memory issues. . .. Type 2 diabetes: Patient continues on metformin 500 b.i.d.. Today's A1c is 6.9. We have increased his Ozempic to 1 mg which seems to have offered him better glycemic control Noted microalbuminuria- will follow in 6 months. Most recent labs do show a small increase in his creatinine. .. Hypertension: Patient's blood pressure elevated today office. Continues on losartan 50 mg daily. Has return back to using chlorthalidone and reports his blood pressures have been better. Patient's BUN continues to be elevated over last several years. Unclear etiology to this thus will try to have him evaluated by Nephrology for possible kidney issue. Will send for renal ultrasound. PLAN: Due to the elevation in his blood pressure will start hydrochlorothiazide for better blood pressure control .. Obesity: He has unfortunately gained weight since last office visit. He is not on a vegetarian diet anymore. He does understand he needs to work on lifestyle modifications to reduce his weight. [facility] Medical History (Updated 10/01/24 @ 07:35 by Jas Byrd PA-C) Lower extremity edema Dyspnea ТАТЬЯНА (obstructive sleep apnea) Pulmonary nodules Obese Personal history of nicotine dependence Erectile dysfunction HLD (hyperlipidemia) Type 2 diabetes mellitus HTN (hypertension) Surgical History History of repair of right rotator cuff History of left knee surgery History of colonoscopy Family History Mother Lung cancer Father Diabetes Bladder cancer Heart attack Brother Hypertension Diabetes Maternal Grandmother Hypertension Arthritis Maternal Aunt Family history of malignant neoplasm of female breast Social History Household Members: Family Housing: House Do you presently have visiting nurse or other home services: No Alcohol intake: never Patient Tobacco Use Status: Former Tobacco user Years Smoked: (onset 16yo, 1.5ppd x 35yrs, 50pyh, quit 2015) e-Cigarette/Vaping Use: Never Used service: No Current occupational status: employed Cognitive needs: No Hearing needs: No Vision needs: Yes Questionnaire PHQ-9 Over the last 2 weeks, how often have you been bothered by any of the following problems? 1. Little interest or pleasure in doing things: not at all 2. Feeling down, depressed, or hopeless: not at all 3. Trouble falling or staying asleep, or sleeping too much: not at all 4. Feeling tired or having little energy: not at all 5. Poor appetite or overeating: not at all 6. Feeling bad about yourself - or that you are a failure or have let yourself or your family down: not at all 7. Trouble concentrating on things, such as reading the newspaper or watching television: not at all 8. Moving or speaking so slowly that other people could have noticed. Or the opposite - being so fidgety or restless that you have been moving around a lot more than usual: not at all 9. Thoughts that you would be better off or of hurting yourself in some way: not at all Total score: 0 Depression Screening Interpretation: Negative Depression Screening Done: Yes 18464 - PHQ-9 Billing: Yes Source: Developed by Drs. Hoang Sheffield, Samantha Barreto, Ben Niño and colleagues, with an educational salomon from [employer]. Thrive Questionnaire Date Thrive assessed: 09/30/24 I am a: Patient What is your living situation today?: I have a steady place to live Within the past 12 months, did the food you bought not last and you didn't have the money to get more?: Never true Within the past 12 months, did you worry whether your food would run out before you got money to buy more?: Never true Do you have trouble paying for medicines?: No Do you have trouble getting transportation to medical appointments?: No Do you have trouble paying your heating and electricity bill?: No Do you have trouble taking care of your child, family member or friend?: No Do you have trouble with day-to-day activities such as bathing, preparing meals, shopping, managing finances, etc.?: No Are you currently unemployed and looking for a job?: No Are you interested in more education?: No Please select the resources that you would like help with: None Currently or been in a relationship where the following occur: No concerns reported THRIVE Score: 0 AUDIT C Alcohol Use Questionnaire (AUDIT-C) 1. How often do you have a drink containing alcohol?: Monthly or less 2. How many drinks containing alcohol do you have on a typical day when you are drinking?: 1 or 2 3. How often do you have six or more drinks on one occasion?: Never Total Score: 1 ELIJAH-7 AMB Questionnaire ELIJAH-7 Date ELIJAH - 7 assessed: 09/30/24 Feeling nervous, anxious, or on edge: 0 = Not at all Not being able to stop or control worryin = Not at all Worrying too much about different things: 0 = Not at all Trouble relaxin = Not at all Being so restless that it is hard to sit still: 0 = Not at all Becoming easily annoyed or irritable: 0 = Not at all Feeling afraid as if something awful might happen: 0 = Not at all Total ELIJAH-7 score (0-4 normal; 5-9 mild; 10-14 moderate; 15-21 severe): 0 Source: Developed by Drs. Hoang Sheffield, Samantha Barreto, Ben Niño and colleagues, with an educational salomon from [employer]. ELIJAH-7 Assessment Billing ELIJAH-7 Assessment Tool: ELIJAH-7 Assessment 80145 Review of Systems Const Denies headache(s) Eyes Denies loss of vision ENT Denies vertigo, Denies dizziness, Denies headache(s) and Denies sore throat Card Denies chest pain, Denies leg edema and Denies lightheadedness Resp Denies cough, Denies hemoptysis and Denies wheezing GI Denies abdominal pain, Denies melena, Denies constipation, Denies diarrhea and Denies vomiting Denies dysuria, Denies urinary frequency and Denies urinary urgency Musc Denies arthralgias, Denies joint swelling, Denies numbness and Denies tingling Neuro Denies Abnormal speech present, Denies behavioral changes, Denies vertigo, Denies dizziness, Denies headache(s), Denies loss of vision, Denies memory loss, Denies numbness and Denies tingling Psych Denies anxiety, Denies behavioral changes, Denies depression, Denies memory loss and Denies panic attacks Awais/Lymph Denies easy bleeding and Denies easy bruising Aller/Immun Denies wheezing Physical exam (Primary Care) Vital Signs: Last Vital Signs Pulse 89 09/30/24 09:12 BP 144/84 H 09/30/24 09:12 Pulse Ox 98 09/30/24 09:12 Oxygen Delivery Method Room Air 09/30/24 09:12 BMI result Body Mass Index 38.5 BMI Assessment/Plan discussion: High BMI High, discussed plan: lifestyle, weight reduction, dietary and physical activity Tobacco/Smoking Status: Tobacco use Status Tobacco use date assessed 09/30/24 09/30/24 09:25 Patient Tobacco Use Status Former Tobacco user 09/30/24 09:13 Tobacco use type 05/01/24 10:06 e-Cigarette/Vaping Use Never Used 09/30/24 09:13 PHQ-9: PHQ-9 Score PHQ-9: Total score 0 09/30/24 09:37 Depression Screening Interpretation: Negative Thrive Assessment: Date of Thrive Assessment Date Thrive assessed 09/30/24 09/30/24 09:13 Currently or been in a relationship where the following occur: No concerns reported Const General: healthy appearing, no acute distress, alert and awake Nutritional Appearance: well nourished Orientation/consciousness: oriented to person, oriented to place and oriented to time HENMT Ears: TM's normal bilaterally General nose exam: Normal nasal mucous membranes and turbinates present Eyes Conjunctivae: conjunctivae normal Sclerae: sclerae normal Pupils: Equal, round and reactive pupils present Neck Neck: Yes no lymphadenopathy and Yes no JVD Thyroid: Thyroid normal Carotids: no bruits Resp Effort & Inspection: normal respiratory effort and not tachypneic Auscultation: no crackles, no rales, no rhonchi and no wheezes Cardio Rate: regular rate Rhythm: regular rhythm Heart sounds: no murmurs and normal S1 and S2 GI Palpation (GI): Soft to palpation, nontender, no hepatomegaly and no splenomegaly Auscultation: normal bowel sounds Skin General skin exam: no rashes or lesions noted and dry skin Neuro General: oriented to person, oriented to place and oriented to time Cranial nerves: Yes Equal, round and reactive pupils present Speech: No Abnormal speech present Gait exam (Neuro): Normal gait present Motor exam (neuro): no tremor noted Extrem Right upper extremity: full ROM Left upper extremity: full ROM Right lower extremity: full ROM; no edema Left lower extremity: full ROM; no edema Psych Mental Status: mental status grossly normal Speech and movement: Normal speech and movement present Affect: normal affect Attitude: cooperative Thought process: Normal thought process present Results AMB Hemoglobin A1c AMB Hemoglobin A1c 6.9 % Last Edit by ALEX Patterson on 09/30/24 09:35 Results Reviewed Results Reviewed: Laboratory Last Values Hgb A1c (Clinic) 6.9 % (4.0-6.0) H 09/30/24 09:17 Coding Level of Care Code Est Pt Level 4 (37284) Diagnoses Type 2 diabetes mellitus with hyperglycemia, without long-term current use of insulin E11.65 Diabetes mellitus complication status: with hyperglycemia Diabetes mellitus snf insulin use: without termite renewal inspector use Mixed hyperlipidemia E78.2 Hyperlipidemia type: mixed hyperlipidemia Primary hypertension I10 Hypertension type: primary hypertension Class 2 obesity E66.812 ELIJAH (generalized anxiety disorder) F41.1 Elevated BUN R79.9 Memory impairment R41.3 Additional Codes ELIJAH-7 Assessment Billing - ELIJAH-7 Assessment Tool: ELIJAH-7 Assessment 31004 ([id number]) PHQ-9 - 68451 - PHQ-9 Billing: Yes ([id number]) Assessment & Plan Assessment & Plan (1) Type 2 diabetes mellitus: Code(s): E11.9 - Type 2 diabetes mellitus without complications Category: Medical Qualifiers: Diabetes mellitus complication status: with hyperglycemia Diabetes mellitus termite renewal inspector insulin use: without termite renewal inspector use Qualified Code(s): E11.65 - Type 2 diabetes mellitus with hyperglycemia Plan: Patient's type 2 diabetes suboptimally controlled with an A1c today is 6.9 from 7.5. Will continue current dose of Ozempic 1 mg as it has offered better glycemic control. Goal A1c is to remain below 7.0 (2) HLD (hyperlipidemia): Code(s): E78.5 - Hyperlipidemia, unspecified Category: Medical Qualifiers: Hyperlipidemia type: mixed hyperlipidemia Qualified Code(s): E78.2 - Mixed hyperlipidemia Plan: Patient's most recent lipid panel showing elevated total cholesterol and LDL. Patient continues on high dose statin. He will continue working on lifestyle and dietary modifications. Goal LDL to be below 100 (3) HTN (hypertension): Code(s): I10 - Essential (primary) hypertension Category: Medical Qualifiers: Hypertension type: primary hypertension Qualified Code(s): I10 - Essential (primary) hypertension Plan: Patient's blood pressure slightly elevated today in office. Will add hydrochlorothiazide to his blood pressure med regime. Will consider increasing losartan dose if blood pressures remain above 140/90. Due to his chronic elevated BUN will try to set him up with a gravity prospector for further evaluation of a kidney disease. Goal blood pressures to remain below 140/90 (4) Class 2 obesity: Code(s): E66.812 - Obesity, class 2 Category: Medical Plan: Has gained weight since last office visit Patient does understand his BMI is over 35 and will work on being more physically active and adapting to better eating habits to reduce his weight (5) ELIJAH (generalized anxiety disorder): Code(s): F41.1 - Generalized anxiety disorder Category: Medical Plan: Plans include stress mitigation strategies and possibly switching to a longer-acting benzodiazepine. (6) Elevated BUN: Code(s): R79.9 - Abnormal finding of blood chemistry, unspecified Category: Medical Plan: As above Advised renal ultrasound and increased hydration to address persistent BUN level elevation. (7) Memory impairment: Code(s): R41.3 - Other amnesia Category: Medical Plan: As per HPI patient has a family history of brain cancer though was secondary to metastasis. He has been having worsening memory issues to which we are attributing to his anxiety. Recommended brain MRI due to familial neoplasm history impacting cognition. Orders: Orders MR head/brain wo con 09/30/24 R41.3 - Other amnesia, Z80.8 - Family history of malignant neoplasm of other organs or systems Complete Blood Count no Diff 3 Months I10 - Essential (primary) hypertension Comprehensive [place]. Panel Fast 3 Months I10 - Essential (primary) hypertension AMB Hemoglobin A1c 09/30/24 E11.65 - Type 2 diabetes mellitus with hyperglycemia US renal BI 09/30/24 R79.9 - Abnormal finding of blood chemistry, unspecified Lipid Panel 3 Months E78.2 - Mixed hyperlipidemia Referrals Counseling Referral F41.1 - Generalized anxiety disorder Nephrology Referral R79.9 - Abnormal finding of blood chemistry, unspecified Medications: New clonazepam 0.5 mg PO DAILY 14 tabs 0RF 14 days F41.1 - Generalized anxiety disorder hydrochlorothiazide 12.5 mg PO DAILY 90 tabs 0RF I10 - Essential (primary) hypertension Patient Instructions: Goal: A1c to remain below 7.0, blood pressure to remain below 140/90 Barrier: Adherence to physical activity and healthy eating habits
--- OUTSIDE RECORDS SUMMARY | 2024-09-30 09:37 | XMS_ITS | Encounter Summary ---
Author Organization [facility] Address [address] [place] [address] Care Team Providers Care Scouring Train Operator Name Role Phone Orlin Chambers MD Primary Care Provider [phone] Reason for Visit * Reason Onset Date Comments Medication Refill 04/12/2023 Encounter Details Date Type Department Care Team (Late st Contact Info) Description 04/12/2023 Refill [facility] [address] [place] [address] [address] [place] [address] Orlin Chambers MD 100 [facility] Liam [address] [place], [place] [id number] Insomnia, unspecified type Social History Tobacco Use [...] type documented in this encounter Care Teams Scouring Train Operator Relationship Specialty Start Date End Date Orlin Chambers MD 100 [place] [address] PCP - General Family Medicine 01/29/19 08/16/23 Juma Harrington [facility] Pulmonary Medicine 11/23/21 documented as of this encounter
--- OUTSIDE RECORDS SUMMARY | 2024-09-30 09:37 | XMS_ITS | Encounter Summary ---
Author Organization [facility] Address [address] [place] [address] Care Team Providers Care Makeup Artistry Instructor Name Role Phone Orlin Chambers MD Primary Care Provider [phone] Encounter Details Date Type Department Care Team (Late st Contact Info) Description 02/27/[address] [facility] EMERGENCY MED SCAN Emergency Medicine, Scan [...] on filedocumented in this encounter Care Teams Makeup Artistry Instructor Relationship Specialty Start Date End Date Orlin Chambers MD [address] [place] [address] PCP - General Family Medicine 01/29/19 08/16/23 Juma Harrington [facility] Pulmonary Medicine 11/23/21 documented as of this encounter
--- OUTSIDE RECORDS SUMMARY | 2024-09-30 09:37 | XMS_ITS | Encounter Summary ---
Author Organization [facility] Address [address] [place] [address] Care Team Providers Care Principal Statistical Scientist Name Role Phone Orlin Chambers MD Primary Care Provider [phone] Reason for Visit * Reason Onset Date Comments Medication Refill 04/10/2023 Encounter Details Date Type Department Care Team (Late st Contact Info) Description 04/10/2023 Refill [facility] [address] [place] [address] [address] [place] [address] Orlin Chambers MD 100 [facility] Liam [address] [place], [place] [id number] Insomnia, unspecified type Social History Tobacco Use [...] type documented in this encounter Care Teams Principal Statistical Scientist Relationship Specialty Start Date End Date Orlin Chambers MD 100 [place] [address] PCP - General Family Medicine 01/29/19 08/16/23 Juma Harrington [facility] Pulmonary Medicine 11/23/21 documented as of this encounter
--- OUTSIDE RECORDS SUMMARY | 2024-09-30 09:37 | XMS_ITS | Encounter Summary ---
Author Organization [facility] Address [address] [place] [address] Care Team Providers Care Radiation Protection Specialist Name Role Phone Orlin Chambers MD Primary Care Provider [phone] Reason for Visit * Reason Comments Medication Refill Encounter Details Date Type Department Care Team (Late st Contact Info) Description 04/12/2023 Refill [facility] [address] [address] Orlin Chambers MD 100 [facility] Liam [address] [place] [address] Insomnia, unspecified type Social History Tobacco Use [...] type documented in this encounter Care Teams Radiation Protection Specialist Relationship Specialty Start Date End Date Orlin Chambers MD 100 [place] [address] PCP - General Family Medicine 01/29/19 08/16/23 Juma Harrington [facility] Pulmonary Medicine 11/23/21 documented as of this encounter
--- OUTSIDE RECORDS SUMMARY | 2024-09-30 09:37 | XMS_ITS | Encounter Summary ---
Author Organization [facility] Address [address] [place] [address] Care Team Providers Care Preparation Supervisor Freezing Name Role Phone Orlin Chambers MD Primary Care Provider [phone] Encounter Details Date Type Department Care Team (Late st Contact Info) Description 02/27/2023 Scanned Document [facility] EMERGENCY MED SCAN Emergency Medicine, Scan Social [...] on filedocumented in this encounter Care Teams Preparation Supervisor Freezing Relationship Specialty Start Date End Date Orlin Chambers MD [address] [place] [address] PCP - General Family Medicine 01/29/19 08/16/23 Juma Harrington [facility] Pulmonary Medicine 11/23/21 documented as of this encounter
--- OUTSIDE RECORDS SUMMARY | 2024-09-30 09:38 | XMS_ITS | Encounter Summary ---
Author Organization [facility] Address [address] [place] [address] Care Team Providers Care Pig Lead Melter Helper Name Role Phone Orlin Chambers MD Primary Care Provider [phone] Reason for Visit * Reason Comments Medication Refill Encounter Details Date Type Department Care Team (Late st Contact Info) Description 04/10/2023 Refill [facility] [address] [address] Orlin Chambers MD 100 [facility] Liam [address] [place] [address] Insomnia, unspecified type Social History Tobacco Use [...] type documented in this encounter Care Teams Pig Lead Melter Helper Relationship Specialty Start Date End Date Orlin Chambers MD [address] [place] [address] PCP - General Family Medicine 01/29/19 08/16/23 Juma Harrington [facility] Pulmonary Medicine 11/23/21 documented as of this encounter
--- OUTSIDE RECORDS SUMMARY | 2024-09-30 09:38 | XMS_ITS | Clinical Summary ---
Author Organization [facility] Address [address] [place] [address] Care Team Providers Care Brands Editor Name Role Phone Pcp, No MD Primary [...] age to complete this topic Care Teams Brands Editor Relationship Specialty Start Date End Date PcpVonda MD [address] [place] [address] PCP - General Internal Medicine 02/21/21
--- OUTSIDE RECORDS SUMMARY | 2024-09-30 09:38 | XMS_ITS | Encounter Summary ---
Author Organization [facility] Address [address] [place] [address] Care Team Providers Care Field Sales Representative Name Role Phone Orlin Chambers MD Primary Care Provider [phone] Encounter Details Date Type Department Care Team (Late st Contact Info) Description 10/06/2022 Scanned Document [facility] ORTHO SURGERY SCAN [place] [address] [address] Social History Tobacco Use Types Packs/Day Years [...] on filedocumented in this encounter Care Teams Field Sales Representative Relationship Specialty Start Date End Date Orlin Chambers MD [address] [place] [address] [address] [place] [address] PCP - General Family Medicine 01/29/19 08/16/23 Juma Harrington [facility] Pulmonary Medicine 11/23/21 documented as of this encounter
--- OUTSIDE RECORDS SUMMARY | 2024-09-30 09:38 | XMS_ITS | Encounter Summary ---
Author Organization [facility] Address [address] [place] [address] Care Team Providers Care Horse Show Manager Name Role Phone Orlin Chambers MD Primary Care Provider [phone] Reason for Visit * Reason Onset Date Comments Medication Refill 11/10/2022 Encounter Details Date Type Department Care Team (Late st Contact Info) Description 11/10/2022 Refill [facility] [address] [place] [address] [address] [place] [address] Orlin Chambers MD 100 [facility] Liam [address] [place], [place] [phone] Insomnia, unspecified type Social History Tobacco Use [...] type documented in this encounter Care Teams Horse Show Manager Relationship Specialty Start Date End Date Orlin Chambers MD [address] [place] [address] PCP - General Family Medicine 01/29/19 08/16/23 Juma Harrington [facility] Pulmonary Medicine 11/23/21 documented as of this encounter
--- OUTSIDE RECORDS SUMMARY | 2024-09-30 09:38 | XMS_ITS | Encounter Summary ---
Author Organization [facility] Address [address] [place] [address] Care Team Providers Care Crane Oiler Name Role Phone Orlin Chambers MD Primary Care Provider [phone] Reason for Visit * Reason Comments Medication Refill Encounter Details Date Type Department Care Team (Late st Contact Info) Description 08/04/2019 Refill [facility] [address] [address] Orlin Chambers MD 100 [facility] Liam [address] [place] [address] Insomnia, unspecified type Social History [...] type documented in this encounter Care Teams Crane Oiler Relationship Specialty Start Date End Date Orlin Chambers MD [address] [address] PCP - General Family Medicine 01/29/19 08/16/23 Juma Harrington [facility] Pulmonary Medicine 11/23/21 documented as of this encounter
--- OUTSIDE RECORDS SUMMARY | 2024-09-30 09:38 | XMS_ITS | Encounter Summary ---
Author Organization [facility] Address [address] [place] [address] Care Team Providers Care Core Cutter And Reamer Name Role Phone Orlin Chambers MD Primary Care Provider Encounter Details Date Type Department Care Team (Late st Contact Info) Description 06/03/2019 Scanned Document [facility] [address] [address] Provider, Generic Social History Tobacco [...] on filedocumented in this encounter Care Teams Core Cutter And Reamer Relationship Specialty Start Date End Date Orlin Chambers MD 100 [facility] Liam 203 [place], [place] [phone] PCP - General Family Medicine 01/29/19 08/16/23 Juma Harrington [facility] Pulmonary Medicine 11/23/21 documented as of this encounter
--- OUTSIDE RECORDS SUMMARY | 2024-09-30 09:38 | XMS_ITS | Encounter Summary ---
Author Organization [facility] Address [address] [place] [address] Care Team Providers Care Wage And Salary Specialist Name Role Phone Orlin Chambers MD Primary Care Provider [phone] Reason for Visit * Reason Onset Date Comments Medication Refill 11/13/2022 Encounter Details Date Type Department Care Team (Late st Contact Info) Description 11/13/2022 Refill [facility] [address] [place] [address] 203 [place] [address] Orlin Chambers MD 100 [facility] Liam 203 [place], [place] [phone] Insomnia, unspecified type Social History Tobacco Use [...] type documented in this encounter Care Teams Wage And Salary Specialist Relationship Specialty Start Date End Date Orlin Chambers MD 100 [place] [address] PCP - General Family Medicine 01/29/19 08/16/23 Juma Harrington [facility] Pulmonary Medicine 11/23/21 documented as of this encounter
--- OUTSIDE RECORDS SUMMARY | 2024-09-30 09:38 | XMS_ITS | Encounter Summary ---
Author Organization [facility] Address [address] [place] [address] Care Team Providers Care Metal Melter Name Role Phone Orlin Chambers MD Primary Care Provider [phone] Encounter Details Date Type Department Care Team (Late st Contact Info) Description 08/29/2022 Scanned Document [facility] ORTHO SURGERY SCAN [place] [address] [address] Social History Tobacco Use Types Packs/Day Years [...] on filedocumented in this encounter Care Teams Metal Melter Relationship Specialty Start Date End Date Orlin Chambers MD [address] [place] [address] 203 [place] [address] PCP - General Family Medicine 01/29/19 08/16/23 Juma Harrington [facility] Pulmonary Medicine 11/23/21 documented as of this encounter
--- OUTSIDE RECORDS SUMMARY | 2024-09-30 09:38 | XMS_ITS | Encounter Summary ---
Author Organization [facility] Address [address] [place] [address] Care Team Providers Care Flat Sheet Maker Name Role Phone Unavailable Primary Care Provider Unavailabl e Encounter Details Date Type Department Care Team ([facility] st Contact Info) Description 11/05/[address] [facility] CARDIOLOGY SCAN Cardiology, Scan Social History [...] on filedocumented in this encounter Care Teams Flat Sheet Maker Relationship Specialty Start Date End Date Juma Harrington [facility] Pulmonary Medicine 11/23/21 documented as of this encounter
--- OUTSIDE RECORDS SUMMARY | 2024-09-30 09:38 | XMS_ITS | Encounter Summary ---
Author Organization [facility] Address [address] [place] [address] Care Team Providers Care Regional Airline Pilot Name Role Phone Orlin Chambers MD Primary Care Provider [phone] Reason for Visit * Reason Comments Medication Refill Encounter Details Date Type Department Care Team (Late st Contact Info) Description 10/09/[address] [facility] 10 100 [facility] [address] [place] [address] Anayeli Del Rosario APRN 100 [facility] Liam [address] [place], [place] [phone] Anxiety Social History Tobacco Use Types Packs/Day [...] unspecified documented in this encounter Care Teams Regional Airline Pilot Relationship Specialty Start Date End Date Orlin Chambers MD [address] [address] PCP - General Family Medicine 01/29/19 08/16/23 Juma Harrington [facility] Pulmonary Medicine 11/23/21 documented as of this encounter
--- OUTSIDE RECORDS SUMMARY | 2024-09-30 09:38 | XMS_ITS | Encounter Summary ---
Author Organization [facility] Address [address] [place] [address] Care Team Providers Care Conical Mixer Name Role Phone Orlin Chambers MD Primary Care Provider [phone] Reason for Visit * Reason Comments Medication Refill Encounter Details Date Type Department Care Team (Late st Contact Info) Description 09/12/2019 Refill [facility] 10 100 [facility] [address] [place] [address] Anayeli Del Rosario, CABLE ARMORER 100 [facility] Liam 203 [place], [place] [phone] Anxiety Social History Tobacco Use Types Packs/Day [...] unspecified documented in this encounter Care Teams Conical Mixer Relationship Specialty Start Date End Date Orlin Chambers MD [address] [address] PCP - General Family Medicine 01/29/19 08/16/23 Juma Harrington [facility] Pulmonary Medicine 11/23/21 documented as of this encounter
--- OUTSIDE RECORDS SUMMARY | 2024-09-30 09:38 | XMS_ITS | Encounter Summary ---
Author Organization [facility] Address [address] [place] [address] Care Team Providers Care Game Advisor Name Role Phone Orlin Chambers MD Primary Care Provider [phone] Reason for Visit * Reason Comments Medication Refill Encounter Details Date Type Department Care Team (Late st Contact Info) Description 08/04/2019 Refill [facility] 10 100 [facility] [address] [place] [address] Anayeli Del Rosario, TYPO MACHINE OPERATOR 100 [facility] Liam 203 [place], [place] [phone] Hyperlipidemia, unspecified hyperlipidemia type Social History Tobacco [...] type documented in this encounter Care Teams Game Advisor Relationship Specialty Start Date End Date Orlin Chambers MD 100 [place] [address] PCP - General Family Medicine 01/29/19 08/16/23 Juma Harrington [facility] Pulmonary Medicine 11/23/21 documented as of this encounter
--- OUTSIDE RECORDS SUMMARY | 2024-09-30 09:38 | XMS_ITS | Encounter Summary ---
Author Organization [facility] Address [address] [place] [address] Care Team Providers Care Head Of Ethics And Compliance Name Role Phone Orlin Chambers MD Primary Care Provider [phone] Reason for Visit * Reason Comments Medication Refill Encounter Details Date Type Department Care Team (Late st Contact Info) Description 11/04/2019 Refill [facility] 10 100 [facility] 203 [place] [phone] Anayeli Del Rosario APRN 100 [facility] 203 [place], [place] [phone] Anxiety Social History Tobacco Use Types Packs/Day [...] unspecified documented in this encounter Care Teams Head Of Ethics And Compliance Relationship Specialty Start Date End Date Orlin Chambers MD [address] [address] PCP - General Family Medicine 01/29/19 08/16/23 Juma Harrington [facility] Pulmonary Medicine 11/23/21 documented as of this encounter
--- OUTSIDE RECORDS SUMMARY | 2024-09-30 09:38 | XMS_ITS | Encounter Summary ---
Author Organization [facility] Address [address] [place] [address] Care Team Providers Care Electrical Service Technician Name Role Phone Orlin Chambers MD Primary Care Provider Encounter Details Date Type Department Care Team (Late st Contact Info) Description 09/05/2022 Scanned Document [facility] 10 100 [facility] 203 [place] [address] Orlin Chambers MD 100 [facility] 203 [place] [address] Social History Tobacco Use Types Packs/Day Years [...] on filedocumented in this encounter Care Teams Electrical Service Technician Relationship Specialty Start Date End Date Orlin Chambers MD [address] [address] PCP - General Family Medicine 01/29/19 08/16/23 Juma Harrington [facility] Pulmonary Medicine 11/23/21 documented as of this encounter
--- OUTSIDE RECORDS SUMMARY | 2024-09-30 09:38 | XMS_ITS | Clinical Summary ---
Author Organization [facility] Address [address] [place] [address] Care Team Providers Care Plasterer Stucco Name Role Phone Unavailable Primary Care Provider [...] Urine, Random (06/06/2022 8:55 AM EST) Pathologist [facility] Creatinine, Urine, Random 242 20 - 320 mg/dL [facility] Microalbumin, Urine, Random 12.1 See Note: mg/dL [facility] Comment: Reference Range: Reference Range Not established Microalbumin/Creat inine Ratio 50(H) <30 mcg/mg creat [facility] Comment: The ADA defines abnormalities in albumin [...] FASTING: YES Orlin Chambers MD URINE ORDERABLES [facility] [address] [place] [address], [place] [address] * (ABNORMAL) Hemoglobin A1c (06/06/2022 8:55 AM EST) Hemoglobin A1C 6.5(H) <5.7 % of total Hgb [facility] Comment: For someone without known diabetes, a [...] MD LAB BLOOD ORDERABLES Performing Organization Address City/[facility]/ZIP Co de Phone Number [facility] [address] [address] * (ABNORMAL) Basic Metabolic Panel (06/06/2022 8:55 AM EST) Glucose 129(H) 65 - 99 mg/dL [facility] Comment: ? Fasting reference interval For someone without known diabetes, a glucose value >125 mg/dL indicates that they may have diabetes and this should be confirmed with a follow-up test. Blood Urea Nitrogen (BUN) 33(H) 7 - 25 mg/dL [facility] Creatinine 1.49(H) 0.70 - 1.30 mg/dL [facility] Creatinine w/ eGFR 54(L) > OR = 60 mL/min/1.7 3m2 [facility] Comment: The eGFR is based on the CKD-EPI 2020 equation. To calculate the new eGFR from a previous Creatinine or Cystatin C result, go to https://www.kidney.org/professionals/ kdoqi/gfr%5Fcalculator BUN/Creatinine Ratio 22 6 - 22 (calc) [facility] Sodium 139 135 - 146 mmol/L [facility] Potassium 4.1 3.5 - 5.3 mmol/L [facility] Chloride 102 98 - 110 mmol/L [facility] CO2 27 20 - 32 mmol/L [facility] Calcium 9.5 8.6 - 10.3 mg/dL [facility] Blood specimen (specimen) 06/06/2022 8:55 AM EST 06/06/2022 8:55 AM EST Narrative [facility] - 06/07/2022 4:59 PM EST FASTING:YES FASTING: YES Orlin Chambers MD LAB BLOOD ORDERABLES Performing Organization Address City/[facility]/ZIP Co de Phone Number [facility] [address], [place] [address] * (ABNORMAL) Lipid Panel Reflex Direct LDL (12/07/2021 8:13 AM EDT) Cholesterol, Total 191 <200 mg/dL [facility] Cholesterol, HDL 48 > OR = 40 mg/dL [facility] Triglycerides 237(H) <150 mg/dL [facility] Comment: If a non-fasting specimen was collected, consider repeat triglyceride testing on a fasting specimen if clinically indicated. Chris et al. J. of Clin. Lipidol. 2015;9:129-169. LDL Cholesterol 107(H) mg/dL (calc) [facility] Comment: Reference range: <100 Desirable range <100 mg/dL for primary prevention; ?? <70 mg/dL for patients with CHD or diabetic patients with > or = 2 CHD risk factors. LDL-C is now calculated using the Michael-Rosario calculation, which is a validated novel method providing better accuracy than the Friedewald equation in the estimation of LDL-C. Michael SS et al. ELSY. 2013;310(19): 0026-3220 (http://education.Becovillage/faq/LEJ848) Cholesterol/HDL Ratio 4.0 <5.0 (calc) [facility] Non HDL Chol. (LDL+VLDL) 143(H) <130 mg/dL (calc) [facility] Comment: For patients with diabetes plus 1 major ASCVD risk factor, treating to a non-HDL-C goal of <100 mg/dL (LDL-C of <70 mg/dL) is considered a therapeutic option. Blood specimen (specimen) 12/07/2021 8:13 AM EDT 12/07/2021 8:13 AM EDT Narrative [facility] - 12/08/2021 12:09 AM EDT FASTING:YES FASTING: YES Orlin Chambers MD LAB BLOOD ORDERABLES [facility] [address], [place] [address] * CT Thorax w/o contrast (05/29/2019 9:23 [...] your patient to us, Travis Villarreal MD [id number] (Electronically Signed - 05/29/2019 09:23) Copy: ORLIN CHAMBERS DO [facility] 10 100 [facility] [place] [address] PATIENT , ?? Narrative 05/29/2019 9:23 AM EST EXAMINATION: CT CHEST WITHOUT CONTRAST CLINICAL INFORMATION: Left lower lobe pulmonary nodule. COMPARISON: No relevant prior studies are available for comparison. TECHNIQUE: Multidetector volumetric CT imaging of the chest was done. Axial MIP volume rendering provided. Sagittal and coronal reformatted images were obtained. DLP: 523.69 mGy-cm FINDINGS: VALIDATION INTERN: Unremarkable. LUNGS: There is a 3 mm [...] images were obtained. DLP: 523.69 mGy-cm FINDINGS: VALIDATION INTERN: Unremarkable. LUNGS: There is a 3 mm nodule medially within the right upper lobe(axial image 151/505). There is an adjacent 1-2 mm nodule (axial [id number]). There is an irregular 0.6 cm nodule [...] interval change. According to the UPDATED 2017 [facility] recommendations, the advised follow up imaging for [...] your patient to us, Travis Villarreal MD [id number] (Electronically Signed - 05/29/2019 09:23) Copy: ORLIN CHAMBERS DO [facility] 10 100 [facility] [place] [address] PATIENT , Kelly Bustillo MD IMG CT ORDERABLES from Last 3 Months or Most Recently Relevant to Health Maintenance Care Teams Plasterer Stucco Relationship Specialty Start Date End Date Juma Harrington [facility] Pulmonary Medicine 11/23/21
--- OUTSIDE RECORDS SUMMARY | 2024-09-30 09:38 | XMS_ITS | Encounter Summary ---
Author Organization [facility] Address [address] [place] [address] Care Team Providers Care Distillery Laborer Name Role Phone Orlin Chambers MD Primary Care Provider Encounter Details Date Type Department Care Team (Late st Contact Info) Description 10/06/2022 Scanned Document [facility] [address] [place] [address] [facility] [address] [address] Social History Tobacco Use Types Packs/Day Years [...] on filedocumented in this encounter Care Teams Distillery Laborer Relationship Specialty Start Date End Date Orlin Chambers MD [address] [address] PCP - General Family Medicine 01/29/19 08/16/23 Juma Harrington [facility] Pulmonary Medicine 11/23/21 documented as of this encounter
--- OUTSIDE RECORDS SUMMARY | 2024-09-30 09:39 | XMS_ITS | Encounter Summary ---
Author Organization [facility] Address [address] [place] [address] Care Team Providers Care Senior Sales Manager Name Role Phone Orlin Chambers MD Primary Care Provider [phone] Reason for Visit * Reason Comments Medication Refill Encounter Details Date Type Department Care Team (Late st Contact Info) Description 02/01/2020 Refill [facility] 10 100 [facility] [address] [place] [address] Anayeli Del Rosario, REY 100 [facility] Liam 203 [place], [place] [address] Anxiety Social History Tobacco Use Types Packs/Day [...] unspecified documented in this encounter Care Teams Senior Sales Manager Relationship Specialty Start Date End Date Orlin Chambers MD [address] [address] PCP - General Family Medicine 01/29/19 08/16/23 Juma Harrington [facility] Pulmonary Medicine 11/23/21 documented as of this encounter
--- OUTSIDE RECORDS SUMMARY | 2024-09-30 09:39 | XMS_ITS | Encounter Summary ---
Author Organization [facility] Address [address] [place] [address] Care Team Providers Care Apartment Hotel Manager Name Role Phone Orlin Chambers MD Primary Care Provider [phone] Encounter Details Date Type Department Care Team (Late st Contact Info) Description 05/25/2019 Scanned Document [facility] Pulmonary and Critical Care- [address] [address] Kelly Bustillo MD [address] [place] [address] Social History Tobacco Use Types Packs/Day Years [...] on filedocumented in this encounter Care Teams Apartment Hotel Manager Relationship Specialty Start Date End Date Orlin Chambers MD [address] [place] [id number] PCP - General Family Medicine 01/29/19 08/16/23 Juma Harrington [facility] Pulmonary Medicine 11/23/21 documented as of this encounter
--- OUTSIDE RECORDS SUMMARY | 2024-09-30 09:39 | XMS_ITS | Encounter Summary ---
Author Organization [facility] Address [address] [place] [address] Care Team Providers Care Senior Medical Writer Name Role Phone Orlin Chambers MD Primary Care Provider [phone] Encounter Details Date Type Department Care Team (Late st Contact Info) Description 11/01/2020 Scanned Document [facility] ORTHO SURGERY SCAN Orthopedic Surgery, Scan Social [...] on filedocumented in this encounter Care Teams Senior Medical Writer Relationship Specialty Start Date End Date Orlin Chambers MD [address] [address] PCP - General Family Medicine 01/29/19 08/16/23 Juma Harrington [facility] Pulmonary Medicine 11/23/21 documented as of this encounter
--- OUTSIDE RECORDS SUMMARY | 2024-09-30 09:39 | XMS_ITS | Encounter Summary ---
Author Organization [facility] Address [address] [place] [address] Care Team Providers Care Asphalt Mixing Machine Operator Name Role Phone Orlin Chambers MD Primary Care Provider Encounter Details Date Type Department Care Team (Late st Contact Info) Description 01/30/2023 Scanned Document [facility] ORTHO SURGERY SCAN [place] [address] [address] Social History Tobacco Use Types Packs/Day Years [...] on filedocumented in this encounter Care Teams Asphalt Mixing Machine Operator Relationship Specialty Start Date End Date Orlin Chambers MD [address] [place] [address] 203 [place] [address] PCP - General Family Medicine 01/29/19 08/16/23 Juma Harrington [facility] Pulmonary Medicine 11/23/21 documented as of this encounter
--- OUTSIDE RECORDS SUMMARY | 2024-09-30 09:39 | XMS_ITS | Encounter Summary ---
Author Organization [facility] Address [address] [place] [address] Care Team Providers Care Underground Production Foreperson Name Role Phone Orlin Chambers MD Primary Care Provider Encounter Details Date Type Department Care Team (Late st Contact Info) Description 09/08/2020 Scanned Document [facility] [address] [place] [address] Provider, External, [address] [place] [address] Social History Tobacco Use Types Packs/Day Years [...] on filedocumented in this encounter Care Teams Underground Production Foreperson Relationship Specialty Start Date End Date Orlin Chambers MD 100 [place] [address] PCP - General Family Medicine 01/29/19 08/16/23 Juma Harrington [facility] Pulmonary Medicine 11/23/21 documented as of this encounter
--- OUTSIDE RECORDS SUMMARY | 2024-09-30 09:39 | XMS_ITS | Encounter Summary ---
Author Organization [facility] Address [address] [place] [address] Care Team Providers Care Retail Analyst Name Role Phone Orlin Chambers MD Primary Care Provider [phone] Encounter Details Date Type Department Care Team (Late st Contact Info) Description 10/18/2020 Scanned Document [facility] 10 100 [facility] 203 [place] [address] Michael Sweeney MD [address] [place] [address] 201 [place] [address] Social History Tobacco Use Types Packs/Day Years [...] on filedocumented in this encounter Care Teams Retail Analyst Relationship Specialty Start Date End Date Orlin Chambers MD 100 [facility] Liam [address] [place], [place] [phone] PCP - General Family Medicine 01/29/19 08/16/23 Juma Harrington [facility] Pulmonary Medicine 11/23/21 documented as of this encounter
--- OUTSIDE RECORDS SUMMARY | 2024-09-30 09:39 | XMS_ITS | Encounter Summary ---
Author Organization [facility] Address [address] [place] [address] Care Team Providers Care Central Office Equipment Installer Name Role Phone Orlin Chambers MD Primary Care Provider Encounter Details Date Type Department Care Team (Late st Contact Info) Description 08/24/2020 Scanned Document [facility] [address] [place] [address] Provider, External, [address] [place] [address] Social History Tobacco Use Types Packs/Day Years [...] on filedocumented in this encounter Care Teams Central Office Equipment Installer Relationship Specialty Start Date End Date Orlin Chambers MD 100 [place] [address] PCP - General Family Medicine 01/29/19 08/16/23 Juma Harrington [facility] Pulmonary Medicine 11/23/21 documented as of this encounter
--- OUTSIDE RECORDS SUMMARY | 2024-09-30 09:39 | XMS_ITS | Encounter Summary ---
Author Organization [facility] Address [address] [place] [address] Care Team Providers Care Examination Grader Name Role Phone Orlin Chambers MD Primary Care Provider [phone] Encounter Details Date Type Department Care Team (Late st Contact Info) Description 02/27/2023 Scanned Document [facility] EMERGENCY MED SCAN Emergency Medicine, Scan [...] on filedocumented in this encounter Care Teams Examination Grader Relationship Specialty Start Date End Date Orlin Chambers MD [address] [place] [address] PCP - General Family Medicine 01/29/19 08/16/23 Juma Harrington [facility] Pulmonary Medicine 11/23/21 documented as of this encounter
--- OUTSIDE RECORDS SUMMARY | 2024-09-30 09:39 | XMS_ITS | Encounter Summary ---
Author Organization [facility] Address [address] [place] [address] Care Team Providers Care Rn Clinical Documentation Name Role Phone Orlin Chambers MD Primary Care Provider [phone] Encounter Details Date Type Department Care Team (Late st Contact Info) Description 12/06/2022 Scanned Document [facility] [address] [place] [address] Cardiology, Scan Social History Tobacco Use [...] filedocumented in this encounter Care Teams Rn Clinical Documentation Relationship Specialty Start Date End Date Orlin Chambers MD [address] [address] PCP - General Family Medicine 01/29/19 08/16/23 Juma Harrington [facility] Pulmonary Medicine 11/23/21 documented as of this encounter
--- OUTSIDE RECORDS SUMMARY | 2024-09-30 09:39 | XMS_ITS | Clinical Summary ---
Author Organization [facility] Address [address] [place] [address] Care Team Providers Care Auto Service Station Attendant Name Role Phone Orlin Chambers Primary Care Provider [phone] Allergies No known active allergies Medications Medication [...] age to complete this topic Care Teams Auto Service Station Attendant Relationship Specialty Start Date End Date Orlin Chambers DO PCP - General Family Medicine 06/17/18
--- OUTSIDE RECORDS SUMMARY | 2024-09-30 09:39 | XMS_ITS | Encounter Summary ---
Author Organization [facility] Address [address] [place] [address] Care Team Providers Care Tufter Hand Name Role Phone Orlin Chambers MD Primary Care Provider [phone] Encounter Details Date Type Department Care Team (Late st Contact Info) Description 01/29/2019 Scanned Document [facility] [place] [address] [facility] [address] [place] [address] Provider, Hortencia, [address] [place] [address] Social History Tobacco Use Types Packs/Day Years [...] on filedocumented in this encounter Care Teams Tufter Hand Relationship Specialty Start Date End Date Orlin Chambers MD [address] [facility] [address] [place], [place] [id number] PCP - General Family Medicine 01/29/19 08/16/23 Juma Harrington [facility] Pulmonary Medicine 11/23/21 documented as of this encounter
--- OUTSIDE RECORDS SUMMARY | 2024-09-30 09:39 | XMS_ITS | Encounter Summary ---
Author Organization [facility] Address [address] [place] [id number] Care Team Providers Care Residential Appraiser Name Role Phone Orlin Chambers MD Primary Care Provider Encounter Details Date Type Department Care Team (Late st Contact Info) Description 01/25/2023 Scanned Document [facility] [place] [address] [address] Social History Tobacco Use Types Packs/Day Years [...] on filedocumented in this encounter Care Teams Residential Appraiser Relationship Specialty Start Date End Date Orlin Chambers MD [address] [place] [address] [address] [place] [address] PCP - General Family Medicine 01/29/19 08/16/23 Juma Harrington [facility] Pulmonary Medicine 11/23/21 documented as of this encounter
--- OUTSIDE RECORDS SUMMARY | 2024-09-30 09:39 | XMS_ITS | Data Portability ---
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, [address] [place], [address], 6 11:02:[address]/di etiti an refer ral 2015 016 [facility] Not available 6 21:59:[address]/di etiti an refer ral 2013 014 [facility] Not available 4 19:52:00 Procedures colon oscop y scree farhana (PROC ) - Due for scree nign colon oscop y and has had diver tic x 2 in last 6 month s. 2014 [facility] [address] [place] [address], [address], 6 11:22:40 Surgeries None recor ded. Imaging elect arvin lópez am 2015 016 [facility] In-Office Order, Internal Use Only DO Not Attach Compendium DO Not Attach Compendium, Do Not Delete/merge, [id number] 6 21:59:57 Medication Orders bupro pion HCl XL 300 mg 24 hr table t, exten ded relea se 2015 016 [id number], [address], [place], [address], 6 21:59:58 omepr azole 20 mg table t,bryan ny relea se 2015 016 [id number], [address] [place], [address], 6 21:59:57 simva stati n 80 mg table t 2015 016 [id number], [address] [place], [address], 6 21:59:57 chlor thali done 25 mg table t 2015 016 [id number], [address] [place], [address], 6 21:59:57 Cipro 500 mg table t 2014 015 [email or web address] os [id number], [address] [place], [address], 6 09:13:40 metro nidaz ole 500 mg table t 2014 015 [email or web address] os [id number], [address] [place], [address], 6 09:13:40 Patient Targets Encounter Date Encounter Id Patient Goals Patient Target Last Modified By Organization Details Last Modified Time 05/12/2014 [id number] Ongoing of Microalbumin/Cr eatinine Ratio yearly Not [...] Bring meter and/or readings to your appointments [facility] Not available 05/14/2014 19:51:49 08/25/2015 [id number] residential goal of Blood Pressure 140 / 90 Not available Not available Not available 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 [facility] Not available 08/25/2015 21:59:58 Patient Instructions Encounter Date Encounter Id Patient Instructions Last Modified By Organization Details Last Modified Time 05/12/2014 [id number] deciding about u sing medicines to quit smoking phelmuth Not available 05/14/2014 19:52:00 Quitting Tobacco : [facility] 05/14/2014 19:52:00 low back pain: exercises pheuth Not available 05/14/2014 19:52:00 exercise program : getting started pheuth Not available 05/14/2014 19:52:00 high blood press ure: care instructions [facility] Not available 05/14/2014 19:52:00 learning about h igh blood pressure [facility] Not available 05/14/2014 19:52:00 starting a weigh t loss plan: care instructions [facility] Not available 05/14/2014 19:52:00 Nutrition Referr al and Weight Management Follow-up Information [facility] Not available 05/14/2014 19:52:00 Medications were reviewed at this visit and reconciled. Changes in the active medications are reflected in the current medication list and discussed with patient (or caregiver) with instructions for follow up as needed. Printed medication list provided to the patient as part of the visit summary. [facility] Not available 05/14/2014 19:51:49 11/02/2014 [id number] diverticulitis: care instructions [email or web address] Not available 11/02/2014 10:30:33 learning about diverticulosis and diverticulitis [email or web address] Not available 11/02/2014 10:30:33 PT to FU with PC P in 1 month, beforehand if persistent of worsening pain, fever, vomiting, bloody/black stool.? ? ? [email or web address] Not available 11/02/2014 10:30:02 05/28/2015 [id number] Colon Cancer Screening [facility] [email or web address] Not available 05/31/2015 15:33:50 learning about c olon cancer phelmuth Not available 05/29/2015 12:23:20 To call or retur n for worsening or concerns [email or web address] Not available 05/28/2015 16:41:03 Go to ER if worsening abdominal pain, fever or persistent vomiting. I have reviewed the note and agree with the assessment and plan of care. phelmuth Not available 05/29/2015 12:23:21 08/25/2015 [id number] deciding about u sing medicines to quit smoking phelmuth Not available 08/25/2015 21:59:57 Quitting Tobacco : Care Instructions phelmuth Not available 08/25/2015 21:59:58 gastroesophageal reflux disease (GERD): care [facility] available 08/25/2015 21:59:57 learning about h igh blood sugar phelmuth Not available 08/25/2015 21:59:57 fatigue: [facility] 08/25/2015 21:59:57 Colon Cancer Screening [facility] phelmuth Not available 08/25/2015 21:59:57 learning about c olon cancer phelmuth Not available 08/25/2015 21:59:57 high blood press ure: care instructions [facility] Not available 08/25/2015 21:59:57 learning about h igh blood pressure phelmuth Not available 08/25/2015 21:59:57 starting a weigh t loss plan: care instructions [facility] Not available 08/25/2015 21:59:57 Nutrition Referr al and Weight Management Follow-up Information [facility] Not available 08/25/2015 21:59:57 Continue to emi tor home blood pressures and bring to next appointment. [facility] Not available 08/25/2015 10:11:42 Medications were reviewed at this visit and reconciled. Changes in the active medications are reflected in the current medication list and discussed with patient (or caregiver) with instructions for follow up as needed. Printed medication list provided to the patient as part of the visit summary. 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 Refer ral for Body mass index 30+ - obesity Referring Physician: Ryan Bustos, Internal Medicine, Encounter Date: 05/12/2014 Referring Physician: Ryan dean, Internal Medicine, Encounter Date: 08/25/2015 Dry Press Operator/dietitian Refer ral for Body mass index 30+ [...] DO Not Attach Compendium, Do Not Delete/merge, [id number] 08/25/2015 09:20:03 08/25/19 16 08/25/2015 elect rocar diogr am QRS Not Available In-Office Order Internal Use Only DO Not Attach Compendium DO Not Attach Compendium, Do Not Delete/merge, [id number] 08/25/2015 09:20:03 08/25/19 16 08/25/2015 elect rocar diogr am FL Interval Not Available In-Off ice Order Internal Use Only DO Not Attach Compendium DO Not Attach Compendium, Do Not Delete/merge, [id number] 08/25/2015 09:20:03 08/25/19 16 08/25/2015 elect rocar diogr am QRS Duration Not Available In-Of fice Order Internal Use Only DO Not Attach Compendium DO Not Attach Compendium, Do Not Delete/merge, [id number] 08/25/2015 09:20:03 08/25/19 16 08/25/2015 elect rocar diogr am QT Interval Not Available In-Off ice Order Internal Use Only DO Not Attach Compendium DO Not Attach Compendium, Do Not Delete/merge, [id number] 08/25/2015 09:20:03 05/12/20 14 05/12/2014 lipid panel , serum cholesterol, total 154 mg/dL (<200) Not Available [facility] (Centralized Electronic Ordering - All Locations) Patient Can Go To The Location Of Their Choice, [id number] 05/25/2014 15:11:14 05/12/20 14 05/12/2014 lipid panel , serum triglyceride 118 mg/dL (<150) Not Available [facility] ([facility] Ordering - All Locations) Patient Can Go To The Location Of Their Choice, [id number] 05/25/2014 15:11:14 05/12/20 14 05/12/2014 lipid panel , serum HDL chol 45 mg/dL (>39) Not Available [facility] (Centralized Electronic Ordering - All Locations) Patient Can Go To The Location Of Their Choice, [id number] 05/25/2014 15:11:14 05/12/20 14 05/12/2014 lipid panel , serum LDL cholesterol, calculated 85 mg/dL (0-130 ) Not Available [facility] (Centralized Electronic Ordering - All Locations) Patient Can Go To The Location Of Their Choice, [id number] 05/25/2014 15:11:14 05/12/20 14 05/12/2014 lipid panel , serum non HDL cholesterol (calc) 109 mg/dL (<160) Not Available [facility] (Centralized Electronic Ordering - All Locations) Patient Can Go To The Location Of Their Choice, [id number] 05/25/2014 15:11:14 05/12/20 14 05/12/2014 BMP, serum or plasm a glucose 89 mg/dL (70-99 ) Not Available [facility] (Centralized Electronic Ordering - All Locations) Patient Can Go To The Location Of Their Choice, [id number] 05/25/2014 15:11:13 05/12/20 14 05/12/2014 BMP, serum or plasm a BUN 21 mg/dL (6-20) high Not Available [facility] (Centralized Electronic Ordering - All Locations) Patient Can Go To The Location Of Their Choice, [id number] 05/25/2014 15:11:13 05/12/20 14 05/12/2014 BMP, serum or plasm a creatinine 1.1 mg/dL (0.7-1 .2) Not Available [facility] (Centralized Electronic Ordering - All Locations) Patient Can Go To The Location Of Their Choice, [id number] 05/25/2014 15:11:13 05/12/20 14 05/12/2014 BMP, serum or plasm a sodium 140 mmol/ L (133-1 45) Not Available [facility] (Centralized Electronic Ordering - All Locations) Patient Can Go To The Location Of Their Choice, [id number] 05/25/2014 15:11:13 05/12/20 14 05/12/2014 BMP, serum or plasm a potassium 4.3 mmol/ L (3.6-5 .2) Not Available [facility] (Centralized Electronic Ordering - All Locations) Patient Can Go To The Location Of Their Choice, [id number] 05/25/2014 15:11:13 05/12/20 14 05/12/2014 BMP, serum or plasm a chloride 99 mmol/ L (98-10 7) Not Available [facility] (Centralized Electronic Ordering - All Locations) Patient Can Go To The Location Of Their Choice, [id number] 05/25/2014 15:11:13 05/12/20 14 05/12/2014 BMP, serum or plasm a bicarbonate 30 mmol/ L (22-29 ) high Not Available [facility] (Centralized Electronic Ordering - All Locations) Patient Can Go To The Location Of Their Choice, [id number] 05/25/2014 15:11:13 05/12/20 14 05/12/2014 BMP, serum or plasm a anion gap 11 (4-17) Not Available [facility] (Centralized Electronic Ordering - All Locations) Patient Can Go To The Location Of Their Choice, [id number] 05/25/2014 15:11:13 05/12/20 14 05/12/2014 BMP, serum or plasm a calcium 9.9 mg/dL (8.6-1 0.5) Not Available [facility] (Centralized Electronic Ordering - All Locations) Patient Can Go To The Location Of Their Choice, [id number] 05/25/2014 15:11:13 05/12/20 14 05/12/2014 BMP, serum [...] AFRIC AN AMERI CANS. Not Available [facility] (Centralized Electronic Ordering - All Locations) Patient Can Go To The Location Of Their Choice, [id number] 05/25/2014 15:11:13 05/12/20 14 05/12/2014 BMP, serum [...] AFRIC AN AMERI CANS. Not Available [facility] (Centralized Electronic Ordering - All Locations) Patient Can Go To The Location Of Their Choice, 05/25/2014 15:11:13 05/12/20 14 05/12/2014 ALT (harshad ine amino trans feras e), serum or plasm a ALT 23 U/L (0-41) Not Available [facility] (Centralized Electronic Ordering - All Locations) Patient Can Go To The Location Of Their Choice, 05/25/2014 15:11:12 05/28/20 15 05/28/2015 CBC w/ auto diff WBC 13.5 K/mm3 (4.0-1 1.0) high Not Available [facility] (Centralized Electronic Ordering - All Locations) Patient Can Go To The Location Of Their Choice, 05/28/2015 19:59:07 05/28/2005/28/2015 CBC w/ auto diff RBC 5.12 M/mm3 (4.70- 6.10) Not Available [facility] (Centralized Electronic Ordering - All Locations) Patient Can Go To The Location Of Their Choice, 05/28/2015 19:59:07 05/28/2005/28/2015 CBC w/ auto diff HGB 15.2 gm/dL (14.0- 18.0) Not Available [facility] (Centralized Electronic Ordering - All Locations) Patient Can Go To The Location Of Their Choice, 05/28/2015 19:59:07 05/28/2005/28/2015 CBC w/ auto diff HCT 44.2 % (42.0- 52.0) Not Available [facility] (Centralized Electronic Ordering - All Locations) Patient Can Go To The Location Of Their Choice, 05/28/2015 19:59:07 05/28/2005/28/2015 CBC w/ auto diff MCV 86.3 fL (80.0- 94.0) Not Available [facility] (Centralized Electronic Ordering - All Locations) Patient Can Go To The Location Of Their Choice, 05/28/2015 19:59:07 05/28/2005/28/2015 CBC w/ auto diff MCH 29.7 pg (27.0- 34.0) Not Available [facility] (Centralized Electronic Ordering - All Locations) Patient Can Go To The Location Of Their Choice, 05/28/2015 19:59:07 05/28/20 15 05/28/2015 CBC w/ auto diff MCHC 34.4 % (33.0- 37.0) Not Available [facility] (Centralized Electronic Ordering - All Locations) Patient Can Go To The Location Of Their Choice, [id number] 05/28/2015 19:59:07 05/28/2005/28/2015 CBC w/ auto diff plt 198 K/mm3 (150-4 60) Not Available [facility] (Centralized Electronic Ordering - All Locations) Patient Can Go To The Location Of Their Choice, 05/28/2015 19:59:07 05/28/2005/28/2015 CBC w/ auto diff RDW-SD 39.5 fL (<47.0 ) Not Available [facility] (Centralized Electronic Ordering - All Locations) Patient Can Go To The Location Of Their Choice, 05/28/2015 19:59:07 05/28/2005/28/2015 CBC w/ auto diff MPV 11.2 fL (9.4-1 2.4) Not Available [facility] (Centralized Electronic Ordering - All Locations) Patient Can Go To The Location Of Their Choice, 05/28/2015 19:59:07 05/28/2005/28/2015 CBC w/ auto diff automated NRBC 0.0 #/100 _WBC' s Not Available [facility] (Centralized Electronic Ordering - All Locations) Patient Can Go To The Location Of Their Choice, 05/28/2015 19:59:07 05/28/2005/28/2015 CBC w/ auto diff abs. NRBC 0.0 K/mm3 Not Available [facility] (Centralized Electronic Ordering - All Locations) Patient Can Go To The Location Of Their Choice, 05/28/2015 19:59:07 05/28/2005/28/2015 CBC w/ auto diff neut # 10.2 K/mm3 (1.3-7 .0) high Not Available [facility] (Centralized Electronic Ordering - All Locations) Patient Can Go To The Location Of Their Choice, 05/28/2015 19:59:07 05/28/2005/28/2015 CBC w/ auto diff lymph # 2.2 K/mm3 (0.8-3 .1) Not Available [facility] (Centralized Electronic Ordering - All Locations) Patient Can Go To The Location Of Their Choice, 05/28/2015 19:59:07 05/28/2005/28/2015 CBC w/ auto diff mono# 1.0 K/mm3 (0.4-1 .3) Not Available [facility] (Centralized Electronic Ordering - All Locations) Patient Can Go To The Location Of Their Choice, 05/28/2015 19:59:07 05/28/2005/28/2015 CBC w/ auto diff eo # 0.1 K/mm3 (0.0-0 .4) Not Available [facility] (Centralized Electronic Ordering - All Locations) Patient Can Go To The Location Of Their Choice, 05/28/2015 19:59:07 05/28/2005/28/2015 CBC w/ auto diff baso # 0.0 K/mm3 (0.0-0 .1) Not Available [facility] (Centralized Electronic Ordering - All Locations) Patient Can Go To The Location Of Their Choice, 05/28/2015 19:59:07 05/28/2005/28/2015 CBC w/ auto diff abs. imm gran 0.1 K/mm3 Not Available [facility] ([facility]ized [facility] Ordering - All Locations) Patient Can Go To The Location Of Their Choice, 05/28/2015 19:59:07 05/28/2005/28/2015 CBC w/ auto diff neut 74.5 % (44-76 ) Not Available [facility] (Centralized Electronic Ordering - All Locations) Patient Can Go To The Location Of Their Choice, 05/28/2015 19:59:07 05/28/2005/28/2015 CBC w/ auto diff lymph 15.9 % (15-43 ) Not Available [facility] (Centralized Electronic Ordering - All Locations) Patient Can Go To The Location Of Their Choice, 05/28/2015 19:59:07 05/28/2005/28/2015 CBC w/ auto diff monocyte 7.7 % (4.5-1 0.5) Not Available [facility] (Centralized Electronic Ordering - All Locations) Patient Can Go To The Location Of Their Choice, 05/28/2015 19:59:07 05/28/2005/28/2015 CBC w/ auto diff eo 0.9 % (0-6) Not Available [facility] (Centralized Electronic Ordering - All Locations) Patient Can Go To The Location Of Their Choice, 05/28/2015 19:59:07 05/28/2005/28/2015 CBC w/ auto diff baso 0.3 % (0-2) Not Available [facility] (Centralized Electronic Ordering - All Locations) Patient Can Go To The Location Of Their Choice, 05/28/2015 19:59:07 05/28/2005/28/2015 CBC w/ auto diff imm gran 0.7 % (0.0-0 .6) high Not Available [facility] (Centralized Electronic Ordering - All Locations) Patient Can Go To The Location Of Their Choice, 05/28/2015 19:59:07 05/28/2005/28/2015 CMP, serum or plasm a glucose 121 mg/dL (70-99 ) high Not Available [facility] (Centralized Electronic Ordering - All Locations) Patient Can Go To The Location Of Their Choice, 05/28/2015 20:18:24 05/28/2005/28/2015 CMP, serum or plasm a BUN 23 mg/dL (6-20) high Not Available [facility] (Centralized Electronic Ordering - All Locations) Patient Can Go To The Location Of Their Choice, 05/28/2015 20:18:24 05/28/2005/28/2015 CMP, serum or plasm a creatinine 1.2 mg/dL (0.7-1 .2) Not Available [facility] (Centralized Electronic Ordering - All Locations) Patient Can Go To The Location Of Their Choice, 05/28/2015 20:18:24 05/28/2005/28/2015 CMP, serum or plasm a sodium 141 mmol/ L (133-1 45) Not Available [facility] (Centralized Electronic Ordering - All Locations) Patient Can Go To The Location Of Their Choice, 05/28/2015 20:18:24 05/28/2005/28/2015 CMP, serum or plasm a potassium 3.7 mmol/ L (3.6-5 .2) Not Available [facility] (Centralized Electronic Ordering - All Locations) Patient Can Go To The Location Of Their Choice, 05/28/2015 20:18:24 05/28/2005/28/2015 CMP, serum or plasm a chloride 98 mmol/ L (98-10 7) Not Available [facility] (Centralized Electronic Ordering - All Locations) Patient Can Go To The Location Of Their Choice, 05/28/2015 20:18:24 05/28/2005/28/2015 CMP, serum or plasm a bicarbonate 30 mmol/ L (22-29 ) high Not Available [facility] (Centralized Electronic Ordering - All Locations) Patient Can Go To The Location Of Their Choice, 05/28/2015 20:18:24 05/28/2005/28/2015 CMP, serum or plasm a anion gap 13 (4-17) Not Available [facility] (Centralized Electronic Ordering - All Locations) Patient Can Go To The Location Of Their Choice, 05/28/2015 20:18:24 05/28/2005/28/2015 CMP, serum or plasm a albumin 4.8 gm/dL (3.4-4 .8) Not Available [facility] (Centralized Electronic Ordering - All Locations) Patient Can Go To The Location Of Their Choice, 05/28/2015 20:18:24 05/28/2005/28/2015 CMP, serum or plasm a calcium 9.8 mg/dL (8.6-1 0.5) Not Available [facility] (Centralized Electronic Ordering - All Locations) Patient Can Go To The Location Of Their Choice, 05/28/2015 20:18:24 05/28/2005/28/2015 CMP, serum or plasm a bilirubin,to gregory 0.7 mg/dL (0-1.2 ) Not Available [facility] (Centralized Electronic Ordering - All Locations) Patient Can Go To The Location Of Their Choice, 05/28/2015 20:18:24 05/28/2005/28/2015 CMP, serum or plasm a total protein 7.4 gm/dL (6.2-8 .2) Not Available [facility] (Centralized [facility] Ordering - All Locations) Patient Can Go To The Location Of Their Choice, 05/28/2015 20:18:24 05/28/2005/28/2015 CMP, serum or plasm a Ag ratio 1.8 Not Available [facility] (Centralized Electronic Ordering - All Locations) Patient Can Go To The Location Of Their Choice, 05/28/2015 20:18:24 05/28/2005/28/2015 CMP, serum or plasm a AST 19 U/L (0-38) Not Available [facility] (Centralized Electronic Ordering - All Locations) Patient Can Go To The Location Of Their Choice, 05/28/2015 20:18:24 05/28/20 15 05/28/2015 CMP, serum or plasm a alk phos 63 U/L (40-12 9) Not Available [facility] (Centralized Electronic Ordering - All Locations) Patient Can Go To The Location Of Their Choice, 05/28/2015 20:18:24 05/28/20 15 05/28/2015 CMP, serum or plasm a ALT 28 U/L (0-41) Not Available [facility] (Centralized Electronic Ordering - All Locations) Patient Can Go To The Location Of Their Choice, 05/28/2015 20:18:24 05/28/2005/28/2015 CMP, serum or plasm a est GFR non >60 mL/mi n/1.7 3_M2 THE MDRD STUDY 'S ESTIM ATED GFR EQUAT ION HAS NOT BEEN VALID ATED IN CHILD MOOSE (<18 YRS), PREGN ANT WOMEN , THE ELDER LY (AGE >70 YRS), RACIA L OR ETHNI C SUBGR OUPS OTHER THAN CAUCA SIANS AND AFRIC AN AMERI CANS. Not Available [facility] (Centralized Electronic Ordering - All Locations) Patient Can Go To The Location Of Their Choice, 05/28/2015 20:18:24 05/28/2005/28/2015 CMP, serum or plasm a est GFR >60 mL/mi n/1.7 3_M2 THE MDRD STUDY 'S ESTIM ATED GFR EQUAT ION HAS NOT BEEN VALID ATED IN CHILD MOOSE (<18 YRS), PREGN ANT WOMEN , THE ELDER LY (AGE >70 YRS), RACIA L OR ETHNI C SUBGR OUPS OTHER THAN CAUCA SIANS AND AFRIC AN AMERI CANS. Not Available [facility] (Centralized Electronic Ordering - All Locations) Patient Can Go To The Location Of Their Choice, 05/28/2015 20:18:24 11/10/19 15 10/30/2014 imagi ng/di agnos tic resul t No observ ation record ed. [facility] Not Available 2015 09:50:37 08/25/19 16 carol lópez am No observ ation record ed. [facility] Not Available 2015 09:41:39 Result Notes None recorded. Problems Name Problem SNOMED Code Status Onset Date Resolution Date Notes Provider Name and Address Organization Details Recorded Time Sprains and strains of joints and adjacent muscles Completed 201102/19/2014 RECORDED 04/23/20 12 9:33AM BY DIXON HOLLAND MA, ANNOTATI ON/ADDEN DUM BLAYNE Hurtado, [facility] 6 09:33:55 Bicipita l tenosyno vitis [id number] Completed 201202/19/2014 IMPRESSI ON: AT ATTACHME NT AT ELBOW. CONTINUE ALEVE; RECORDED 10/24/19 13 10:00AM BY HIEN MANNING MA, ANNOTATI ON/ADDEN DUM BLAYNE Hurtado, [facility] 6 09:33:55 Carpal tunnel syndrome [id number] Active 2013 BLAYNE Hurtado, [facility] 6 09:33:55 Chest pain [id number] Completed 201102/19/2014 RECORDED 04/23/20 12 9:33AM BY DIXON HOLLAND MA, ANNOTATI ON/ADDEN DUM BLAYNE Hurtado, [facility] 6 09:33:55 Closed fracture of lower end of radius AND ulna [id number] Completed 200802/19/2014 RECORDED 05/20/20 09 8:20AM BY RYAN BUSTOS MD, ANNOTATI ON/ADDEN DUM BLAYNE Hurtado, [facility] 6 09:33:55 Disorder of kidney and/or ureter [id number] Completed 200802/19/2014 IMPRESSI ON: CREATINI NE 1.4 (11/2006) ; RECORDED 05/20/20 09 8:20AM BY RYAN BUSTOS MD, ANNOTJEANNIE ON/ADDEN DUM BLAYNE Hurtado, [facility] 6 09:33:55 Edema [id number] Completed 200802/19/2014 RECORDED 05/20/20 09 7:44AM BY HIEN MANNING MA, ANNOTATI ON/ADDEN DUM BLAYNE Hurtado, [facility] 6 09:33:55 Influenz a vaccine needed [id number] Completed 201102/19/2014 RECORDED 03/19/20 12 8:37AM BY NADYA CAMILO, OFFICE VISIT BLAYNE Hurtado, [facility] 6 09:33:55 Follow-u p encounte r Completed 201102/19/2014 RECORDED 03/19/20 12 8:24AM BY LETTY LUNA ON/ADDEN DUM BLAYNE Hurtado, [facility] 6 09:33:55 Adult health examinat ion Completed 201102/19/2014 RECORDED 04/23/20 12 9:33AM BY DIXON HOLLAND MA, ANNOTATI ON/ADDEN DUM BLAYNE Hurtado, [facility] 6 09:33:55 General examinat ion of patient Completed 200702/19/2014 RECORDED 07/14/20 08 7:03AM BY LETTY FU ON/ADDEN DUM BLAYNE Hurtado, [facility] 6 09:33:55 Hypercho lesterol emia [id number] Completed 201202/19/2014 RECORDED 11/26/19 13 1:46PM BY DIXON HOLLAND MA ANNOTJEANNIE ON/ADDEN DUM HienBLAYNE Sloan [facility] 6 09:33:54 Hypersom donis [id number] Completed 201102/19/2014 RECORDED 06/18/20 12 7:23AM BY LETTY BERNAL ON/[facility] 09:[facility] Epidermo id cyst of skin [id number] Completed 201102/19/2014 RECORDED 03/19/20 12 8:24AM BY LETTY LUNA ON/[facility]EN [facility] 6 09:33[facility]55 Renewal of prescrip tion Completed 201202/19/2014 RECORDED 11/26/19 13 1:46PM BY DIXON HOLLAND MA, LETTY ON/ADDEN [facility] 6 09:33:[facility] Administ ration of bacteria l and viral vaccine Completed 200702/19/2014 RECORDED 03/31/20 08 7:18AM BY HIEN MANNING MA, OFFICE VISIT [facility] 6 09:33:55 Hyperhid rosis [id number] Completed 201102/19/2014 RECORDED 04/23/20 12 9:33AM BY DIXON HOLLAND MA, LETTY ON/ADDEN [facility] 6 09:33:[facility] Tobacco user [id number] Completed 201102/19/2014 RECORDED 03/19/20 12 8:24AM BY LETTY LUNA ON/ADDEN DUM BLAYNE Hurtado, [facility] 6 09:33:55 Sprain of foot 38704386 Completed 201102/19/2014 RECORDED 03/19/20 12 8:24AM BY LETTY LUNA ON/ADDEN D[facility] 09:[facility] Sprains and strains of joints and adjacent muscles Completed 201102/20/2014 RECORDED 04/23/20 12 9:33AM BY DIXON HOLLAND MA, LETTY ON/ADDEN DUM BLAYNE Hurtado, [facility] 6 09:33:55 Bicipita l tenosyno vitis 72053855 Completed 201202/20/2014 IMPRESSI ON: AT ATTACHME NT AT ELBOW. CONTINUE ALEVE; RECORDED 10/24/19 13 10:00AM BY HIEN MANNING MA, LETTY ON/ADDEN DUM BLAYNE Hurtado, [facility] 6 09:33:55 Chest pain 54814219 Completed 201102/20/2014 RECORDED 04/23/20 12 9:33AM BY DIXON HOLLAND MA, LETTY ON/ADDEN DUM [facility] 6 09:33:55 Closed fracture of lower end of radius AND ulna 27568887 Completed 200802/20/2014 RECORDED 05/20/20 09 8:20AM BY RYAN BUSTOS MD, LETTY ON/ADDEN DUM BLAYNE Hurtado, [facility] 6 09:33:55 Disorder of kidney and/or ureter 342169310 Completed 200802/20/2014 IMPRESSI ON: CREATINI NE 1.4 (11/2006) ; RECORDED 05/20/20 09 8:20AM BY RYAN BUSTOS MD, ANNOTJEANNIE ON/ADDEN DUM BLAYNE Hurtado, [facility] 6 09:33:55 Edema 080969845 Completed 200802/20/2014 RECORDED 05/20/20 09 7:44AM BY HIEN MANNING MA, ANNOTATI ON/ADDEN DUM Hien Nicole-M BLAYNE rico, [facility] 6 09:33:55 Influenz a vaccine needed [id number] 06 Completed 201102/20/2014 RECORDED 03/19/20 12 8:37AM BY NADYA CAMILO, OFFICE VISIT BLAYNE Hurtado, [facility] 6 09:33:55 Follow-u p encounte r Completed 201102/20/2014 RECORDED 03/19/20 12 8:24AM BY LETTY LUNA ON/ADDEN DUM [facility]ien Rivera[facility] 6 09:33:55 Adult health examinat ion Completed 201102/20/2014 RECORDED 04/23/20 12 9:33AM BY DIXON HOLLAND MA, ANNOTATI ON/ADDEN DUM [facility] 6 09:33:55 General examinat ion of patient Completed 200702/20/2014 RECORDED 07/14/20 08 7:03AM BY LETTY FU ON/ADDEN DUM Hien Nicole-BLAYNE Humphrey, [facility] 6 09:33:55 Hypercho lesterol emia 38109914 Completed 201202/20/2014 RECORDED 11/26/19 13 1:46PM BY DIXON HOLLAND MA, ANNOTATI ON/ADDEN DUM Hien Nicole[facility] 6 09:33:54 Hypersom donis 12785464 Completed 201102/20/2014 RECORDED 06/18/20 12 7:23AM BY LETTY BERNAL ON/ADDBLAYNE Neri, [facility] 6 09:33:55 Epidermo id cyst of skin 102156991 Completed 201102/20/2014 RECORDED 03/19/20 12 8:24AM BY LETTY LUNA ON/ADDEN DUM BLAYNE Hurtado, [facility] 6 09:33:55 Renewal of prescrip tion Completed 201202/20/2014 RECORDED 11/26/19 13 1:46PM BY DIXON HOLLAND MA, LETTY ON/ADDEN DUM BLAYNE Hurtado, [facility] 6 09:33:55 Administ ration of bacteria l and viral vaccine Completed 200702/20/2014 RECORDED 03/31/20 08 7:18AM BY HIEN MANNING MA, OFFICE VISIT BLAYNE Hurtado, [facility] 6 09:33:55 Hyperhid rosis 579108009 Completed 201102/20/2014 RECORDED 04/23/20 12 9:33AM BY DIXON HOLLAND MA, LETTY ON/ADDEN DUM [facility] 6 09:33:55 Tobacco user [id number] Completed 201102/20/2014 RECORDED 03/19/20 12 8:24AM BY LETTY LUNA ON/ADDEN DUM BLAYNE Hurtado, [facility] 6 09:33:55 Sprain of foot 76106612 Completed 201102/20/2014 RECORDED 03/19/20 12 8:24AM BY LETTY LUNA ON/ADDEN DUM BLAYNE Hurtado, [facility] 6 09:33:55 Body mass index 30+ - obesity 252159631 Active BLAYNE Hurtado, [facility] 6 09:33:55 Low back pain 386132373 Active Hien rico BLAYNE nagel, [facility] 6 09:33:55 Divertic ulitis of colon 793084934 Active Hien rico BLAYNE nagel, [facility] 6 09:33:55 Fatigue 79554894 Active Hienlynette rico BLAYNE nagel, [facility] 6 09:33:55 Hypergly cemia 78915461 Active Hien rico BLAYNE shona, [facility] 6 09:33:55 Sprains and strains of joints and adjacent muscles Completed 201101/27/2014 RECORDED 04/23/20 12 9:33AM BY DIXON HOLLAND MA, ANNOTATI ON/ADDEN DUM Hien rico BLAYNE shona, [facility] 6 09:33:55 Acute prostati tis 21708922 Active 2013 IMPRESSI ON: WE DISCUSSE D [...] HIEN MANNING MA, OFFICE VISIT BLAYNE Hurtado, [facility] 6 09:33:55 Bicipita l nonaosyno vitis 18840154 Completed 201201/27/2014 IMPRESSI ON: AT ATTACHME NT AT ELBOW. CONTINUE ALEVE; RECORDED 10/24/19 13 10:00AM BY HIEN MANNING MA, ANNOTATI ON/ADDEN DUM BLAYNE Hurtado, [facility] 6 09:33:55 Biliuria 56672426 Active 2013 BLAYNE Hurtado, [facility] 6 09:33:55 Carpal tunnel syndrome 78493814 Completed 200801/27/2014 RECORDED 05/20/20 09 8:20AM BY RYAN BUSTOS MD, ANNOTATI ON/ADDEN DUM BLAYNE Hurtado, [facility] 6 09:33:55 Chest pain 89968146 Completed 201101/27/2014 RECORDED 04/23/20 12 9:33AM BY DIXON HOLLAND MA, ANNOTATI ON/ADDEN DUM BLAYNE Hurtado, [facility] 6 09:33:55 Chronic tension- type headache 844817759 Active 2013 BLAYNE Hurtado, [facility] 6 09:33:55 Closed fracture of lower end of radius AND ulna 70199625 Completed 200801/27/2014 RECORDED 05/20/20 09 8:20AM BY RYAN BUSTOS MD, ANNOTATI ON/ADDEN DUM BLAYNE Hurtado, [facility] 6 09:33:55 Depressi ve disorder 73931659 Active 2013 BLAYNE Hurtado, [facility] 6 09:33:55 Disorder of kidney and/or ureter 066379724 Completed 200801/27/2014 IMPRESSI ON: CREATINI NE 1.4 (11/2006) ; RECORDED 05/20/20 09 8:20AM BY RYAN BUSTOS MD, ANNOTATI ON/ADDEN DUM BLAYNE Hurtado, [facility] 6 09:33:55 Edema 955824614 Completed 200801/27/2014 RECORDED 05/20/20 09 7:44AM BY HIEN MANNING MA, LETTY ON/ADDEN DUM BLAYNE Hurtado, [facility] 6 09:33:55 Gastroes ophageal reflux disease 172301718 Active 2013 BLAYNE Hurtado, [facility] 6 09:33:55 Malaise and fatigue 056176963 Active 2013 BLAYNE Hurtado, [facility] 6 09:33:55 Influenz a vaccine needed 91375217208 06 Completed 201101/27/2014 RECORDED 03/19/20 12 8:37AM BY NADYA CAMILO, OFFICE VISIT BLAYNE Hurtado, [facility] 6 09:33:55 Follow-u p encounte r Completed 201101/27/2014 RECORDED 03/19/20 12 8:24AM BY LETTY LUNA ON/ADDEN DUM [facility] 6 09:33:55 Adult health examinat ion Completed 201101/27/2014 RECORDED 04/23/20 12 9:33AM BY DIXON HOLLAND MA, ANNOTATI ON/ADDEN DUM BLAYNE Hurtado, [facility] 6 09:33:55 General examinat ion of patient Completed 200701/27/2014 RECORDED 07/14/20 08 7:03AM BY LETTY FU ON/ADDEN DUM BLAYNE Hurtado, [facility] 6 09:33:55 Hypercho lesterol emia 51059184 Completed 201201/27/2014 RECORDED 11/26/19 13 1:46PM BY DIXON HOLLAND MA, ANNOTATI ON/ADDEN DUM BLAYNE Hurtado, [facility] 6 09:33:54 Hyperlip idemia 36264834 Active 2013 BLAYNE Hurtado, [facility] 6 09:33:54 Hypersom donis 43885247 Completed 201101/27/2014 RECORDED 06/18/20 12 7:23AM BY LETTY BERNAL ON/ADDEN DUM BLAYNE Hurtado, [facility] 6 09:33:55 Essentia l hyperten duglas 24781925 Active 2013 BLAYNE Hurtado, [facility] 6 09:33:55 Epidermo id cyst of skin 415637661 Completed 201101/27/2014 RECORDED 03/19/20 12 8:24AM BY LETTY LUNA ON/ADDEN DUM BLAYNE Hurtado, [facility] 6 09:33:55 Insomnia 097060574 Active 2013 BLAYNE Hurtado, [facility] 6 09:33:55 Renewal of prescrip tion Completed 201201/27/2014 RECORDED 11/26/19 13 1:46PM BY DIXON HOLLAND MA, LETTY ON/ADDEN DUM BLAYNE Hurtado, [facility] 6 09:33:55 Fibromyo sitis 31581433 Active 2013 BLAYNE Hurtado, [facility] 6 09:33:55 Administ ration of bacteria l and viral vaccine Completed 200701/27/2014 RECORDED 03/31/20 08 7:18AM BY HIEN MANNING MA, OFFICE VISIT BLAYNE Hurtado, [facility] 6 09:33:55 Hyperhid rosis 600867278 Completed 201101/27/2014 RECORDED 04/23/20 12 9:33AM BY DIXON HOLLAND MA, ANNOTATI ON/ADDEN DUM BLAYNE Hurtado, [facility] 6 09:33:55 Obesity 366230866 Active 2013 STORY: RECENT INCREASE IN HIS WEIGHT.; RECORDED 01/10/20 14 1:21PM BY HIEN MANNING MA, OFFICE VISIT BLAYNE Hurtado, [facility] 6 09:33:55 Tobacco user [id number] Completed 201101/27/2014 RECORDED 03/19/20 12 8:24AM BY LETTY LUNA ON/ADDEN DUM BLAYNE Hurtado, [facility] 6 09:33:55 History of clinical finding in subject 543699071 Active 2011 BLAYNE Hurtado, [facility] 6 09:33:55 Proteinu brandon 22912428 Active 2013 BLAYNE Hurtado, [facility] 6 09:33:55 Psychose xual dysfunct ion associat ed with inhibite d libido 968715868 Active 2013 BLAYNE Hurtado, [facility] 6 09:33:55 Sprain of foot 15542290 Completed 201101/27/2014 RECORDED 03/19/20 12 8:24AM BY LETTY LUNA ON/ADDEN DUM BLAYNE Hurtado, [facility] 6 09:33:55 Tobacco dependen ce syndrome 83079054 Active 2013 Hien rico MA null, [facility] 6 09:33:55 Problem Notes None recorded. Procedures Surgical History Date Name Laterality Status Provider Name and Address Organization Details Recorded Time 6 Colonoscopy completed Analisa Degutis [facility] 12/06/2015 16:58:34 3 [facility] 05/12/2014 08:16:32 5 Circumcision completed [facility] 05/12/2014 08:16:32 Imaging Results Imaging Date Name Status LastModified by Organization Details LastModified Time 10/30/2014 imaging/diagnostic result completed [facility] Information not available 08/25/2015 09:50:37 08/25/2015 electrocardiogram completed [facility] Informa tion not available 08/25/2015 09:41:39 Procedure Notes None recorded. Medical Equipment None Reported. Allergies Allergen ID Allergen Name Allergen Category Reaction Reaction Severity Criticality Documentation Date Start Date Code Code System Note Provider Name and Address Organization Details Recorded Time 1997 aspirin medicatio n nausea Not available Not available 01/27/2014 1191 RxNorm DANIS Bah [address] [address], [place], [address] [place] [address] 5 16:39:27 Medications Name Sig Start Date [...] Updated DateTime 4 97 % 97 % 66941.6 5874 g 98.1 [degF] 64 /min 31.2 kg/m2 171.45 cm 115 mm[Hg] 74 mm[Hg] [facility] 4 08:21:21 Date Recorded Oxygen saturation Oxygen saturation in Arterial blood by Pulse oximetry Body weight Heart rate Body mass index (BMI) Body height Body temperature Systolic blood pressure Diastolic blood pressure Provider Name and Address Organization Details Last Updated DateTime 5 96 % 96 % 613814. 97985 g 80 /min 36.1 kg/m2 171.45 cm 97.9 [degF] 110 mm[Hg] 70 mm[Hg] Elsa Conrad MA [facility] 5 09:52:32 Date Recorded Body weight Oxygen saturation Oxygen saturation in Arterial blood by Pulse oximetry Body height Body mass index (BMI) Body temperature Heart rate Systolic blood pressure Diastolic blood pressure Provider Name and Address Organization Details Last Updated DateTime 5 697058. 85717 g 96 % 96 % 171.45 cm 36.7 kg/m2 96.3 [degF] 98 /min 117 mm[Hg] 80 mm[Hg] Elsa Conrad MA [facility] 5 16:28:18 Date Recorded Body height Body mass index (BMI) Body weight Oxygen saturation Oxygen saturation in Arterial blood by Pulse oximetry Heart rate Body temperature Systolic blood pressure Diastolic blood pressure Provider Name and Address Organization Details Last Updated DateTime 6 171.45 cm 36.3 kg/m2 985164. 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 Information not available 08/25/2015 Have There Been [...] available 05/28/2015 16:28:18 Medical History Condition Response Gout N Other N Kidney Stones N Blood Diseases N Hyperthyroidism N Breast Cancer N COPD N Depression N Lung Disease N Hypothyroidism N Defects or Inherited Disease N Anesthesia Complications N Headaches/Migraines N Anxiety Disorder N Varicose Veins N Obesity N Vision or Eye Problems [...] N Bladder Problems N Mental Illness N Diabetes N Ovarian Cancer N Blood Transfusions N Seizures/Epilepsy N Tuberculosis N AIDS/HIV N Congestive Heart Failure (CHF) N Eczema N Abuse/Domestic Violence N Diverticulitis N Asthma N Allergies N Reflux/GERD N Hepatitis N Pulmonary Embolism N Hypertension Y Chicken Pox N Autism Spectrum Disorder (ASD) N Osteoporosis N Immunizations Vaccine Type Date Status Note Provider Nam e and Address Organization Details Recorded Time Tdap 8 completed Not Available [facility] 01/27/2014 13:31:33 Influenza, split virus, trivalent, preservative 2 completed Not Available [facility] 01/27/2014 13:31:33 Influenza, split virus, trivalent, PF 4 completed Not Available [facility] 08/02/2019 02:21:57 Past Encounters Encounter ID Performer Location Encounter Start Date Encounter Closed Date Diagnosis/Indication Diagnosis SNOMED-CT Code Diagnosis ICD10 Code Diagnosis Note [id number] autoEComm erce [address] [facility] [place] [address] 11/14/2006 00:00:00 [id number] autoEComm erce [address] [facility] [place] [address] 03/31/2008 00:00:00 [id number] [place] [address] 07/14/2008 00:00:00 [id number] [address] [place] [address] 09/23/2008 00:00:00 [id number] [address] [address] [place] [address] 10/09/2008 00:00:00 [id number] [address] [address] [place] [address] 10/29/2008 00:00:[id number] [facility] [address] [place] [address] 12/24/2008 00:00:00 [id number] autoEComm erce [address] [facility] [place] [address] 02/01/2009 00:00:00 [id number] autoEComm erce [address] [facility] [place] [address] 05/20/2009 00:00:00 [id number] autoEComm erce [address] [facility] [place] [address] 08/26/2009 00:00:00 [id number] autoEComm erce [address] [facility] [place] [address] 09/30/2009 00:00:00 [id number] autoEComm erce [address] [facility] [place] [address] 12/22/2009 00:00:00 [id number] autoEComm erce [address] [facility] [place] [address] 01/24/2010 00:00:[id number] [facility] [address] [place] [address] 06/07/2010 00:00:00 [id number] autoEComm erce [address] [facility] [place] [address] 08/30/2010 00:00:00 [id number] autoEComm erce [address] [facility] [place] [address] 11/21/2011 00:00:[id number] [facility] [address] [place] [address] 03/19/2012 00:00:00 [id number] autoEComm erce [address] [facility] [place] [address] 04/23/2012 00:00:00 [id number] autoEComm erce [address] [facility] [place] [address] 06/18/2012 00:00:00 [id number] autoEComm erce [address] [facility] [place] [address] 08/19/2012 00:00:00 [id number] autoEComm erce [address] [facility] [place] [address] 11/25/2012 00:00:00 [id number] autoEComm erce [address] [facility] [place] [address] 01/09/2014 00:00:00 [id number] Main Office [address] [address] LUISANA MENDEZ, BLAYNE [address] 05/12/2014 08:03:54 05/12/2014 09:32:08 Adult health examination 437550781 Needs infl uenza immunization 217435490 Body mass index 30+ - obesity 764990153 Tobacco de pendence syndrome 83294585 Essential hypertension 17033106 Low back pain 509844492 Hyperlipidemia 11942062 [id number] Ryan Bustos MD Main Office [address] [address] LUISANA MENDEZ, BLAYNE [address] 11/02/2014 09:42:42 11/02/2014 10:19:22 Diverticulitis of colon 569933038 symptomati c improvemen t on abx, complete course of antibiotic [id number] Ryan Bustos MD Main Office [address] [address] LUISANA MENDEZ, BLAYNE [address] 05/28/2015 16:19:08 05/28/2015 16:57:55 Diverticulitis of colon 782804503 K57.32 Patient w/ hx diverticul itis via [...] plan. Screening for malignant neoplasm of colon 598793475 Z12.11 [id number] Ryan Bustos MD Main Office [address] [address] 08/25/2015 09:09:08 08/25/2015 10:14:52 Essential hypertension 09755739 I10 Screening for malignant neoplasm of colon 193655722 Z12.11 Hyperglycemia 04963384 R 73.9 Hyperlipidemia 90461779 E78.5 Malaise and fatigue 2717 [address] R53.83 Tobacco de pendence syndrome 36849798 F17.290 Gastroesop hageal reflux disease 092411881 K21.9 Body mass index 30+ - obesity 651118421 Z68.36 Health Concerns Section Related Observation LastModified by Organization Detai ls LastModified Time None Recorded Concern Status LastModified by Organization Details LastModified Time None Recorded Advance Directives Directive N: Payers Encounter Date Sequence Insurance Name Policy Number Policy Salazar Covered Member ID Salazar Member ID Guarantor Name 05/12/2014 1 [facility] [id number] Ross Mosley oks [id number] Ross Desai ks 11/02/2014 1 [facility]PPO[facility] [id number] Ross Mosley oks [id number] Ross Desai ks 05/28/2015 1 [facility]PPO[facility] [id number] Ross Chatman-Praful oks [id number] Ross Desai ks 08/25/2015 1 [facility] (O) [id number] Ross Mosley [facility] [id number] Ross Desai ks Notes Date Note Type Note Provider Name and Address Organization Details Recorded Time 11/02/2014 text/html H/o LLQ abdomina l pain started 3 days ago while visiting family in [place], progressively worsened within 2 hours. He went [...] is tolerating PO fluids. Ryan Bustos MD [address], [address], [facility] 11/02/2014 12:34:39 08/25/2015 text/html Notes symptoms o [...] of distressing dreams. Ryan Bustos MD [address], [address], [facility] 08/25/2015 22:00:19 08/25/2015 text/html HeadacheReported bypatient.Notes:Notes posterior [...] concerns about weight gain. Ryan Bustos MD [address] [address], [place], [address], [facility] 08/25/2015 22:00:19
--- OUTSIDE RECORDS SUMMARY | 2024-09-30 09:39 | XMS_ITS | Clinical Summary ---
Author Organization [facility] Address [address] [place] [address] Care Team Providers Care Clinical Advisor Name Role Phone Orlin Chambers DO Primary Care Provider [phone] Surgical History Surgery Date Site/Laterality Comments WISDOM TOOTH EXTRACTION PROCEDURE:WISDOM TOOTH EXTRACTION KNEE ARTHROSCOPY 06/03/2019 Left PROCEDURE:KNEE ARTHROSCOPY;COMMENT:Procedure: LEFT KNEE ARTHROSCOPY, PARTIAL MEDIAL MENISCECTOMY; Surgeon: David Pack MD; Location: [facility] AMBULATORY SURGERY; Service: CSMI; Laterality: Left; Medical [...] age to complete this topic Care Teams Clinical Advisor Relationship Specialty Start Date End Date Orlin Chambers DO [address] [place] [address] PCP - General Family Medicine 06/17/18
== END 2024-09-30 10:06 | disposition home or self-care (01) ==
LOC: HO.HMCH 09:03
PROVIDERS: PCP Physician Assistant; Visit Provider Physician Assistant
DX: E11.65 Type 2 diabetes mellitus with hyperglycemia (principal)

== ENCOUNTER → 2024-09-30 09:03 | Outpatient (BNVA) | payer OTHER, SELFPAY | PROVIDERS: PCP Physician Assistant; Visit Provider Physician Assistant | DX: E11.65 Type 2 diabetes mellitus with hyperglycemia (principal); E78.2 Mixed hyperlipidemia; I10 Essential (primary) hypertension; E66.812 Obesity, class 2; Z68.38 Body mass index [BMI] 38.0-38.9, adult; F41.1 Generalized anxiety disorder; R79.9 Abnormal finding of blood chemistry, unspecified; R41.3 Other amnesia | CPT/HCPCS: 83036; 96127 ==

== ENCOUNTER → 2024-10-02 19:33 | Outpatient (BNV) | payer OTHER, SELFPAY | PROVIDERS: PCP Physician Assistant; Visit Provider Radiology Diagnostic Radiology | DX: R41.3 Other amnesia (principal) | CPT/HCPCS: 70551 ==

== ENCOUNTER 2024-10-02 19:34 | Outpatient (REF) | payer OTHER, SELFPAY ==
--- NOTE | ~2024-10-02 | MR_ITS ---
EXAMINATION: MR BRAIN WITHOUT CONTRAST CLINICAL INFORMATION: Amnesia COMPARISON: None available. TECHNIQUE: MRI of the brain was obtained using routine sequences without contrast. FINDINGS: Patient's motion artifact. No acute intracranial hemorrhage, mass effect, midline shift, hydrocephalus or herniation. Negrete-white matter differentiation is normal. No restricted diffusion. Posterior cranial fossa contents demonstrated no signal abnormality or gross masses. No signal abnormality or gross volume loss in the hippocampi. Bilateral multifocal patchy and punctate deep periventricular white matter subcortical and deep white matter hyperintense T2 FLAIR signal involving centrum semiovale and alfred radiata. Flow-void signal within the main cerebral vessels is normal. Sellar/suprasellar region demonstrated no signal abnormality or masses. Craniocervical junction is intact and normal. MR/MR head/brain wo con IMPRESSION: White matter disease likely related to small vessel occlusive disease. No acute brain abnormality. No gross volume loss in the hippocampi. Electronically signed by: John Bashir MD 10/03/2024 07:51 AM EDT
--- OUTSIDE RECORDS SUMMARY | 2024-10-02 19:41 | XMS_ITS | Encounter Summary ---
Author Organization [facility] Address [address] [place] [address] Care Team Providers Care Oracle Webcenter Consultant Name Role Phone Orlin Chambers MD Primary Care Provider [phone] Encounter Details Date Type Department Care Team (Late st Contact Info) Description 10/06/2022 Scanned Document [facility] [address] [place] [address] [facility] [address] [address] Social History Tobacco Use Types Packs/Day Years [...] on filedocumented in this encounter Care Teams [employer] Consultant Relationship Specialty Start Date End Date Orlin Chambers MD [address] [address] PCP - General Family Medicine 01/29/19 08/16/23 Juma Harrington [facility] Pulmonary Medicine 11/23/21 documented as of this encounter
--- OUTSIDE RECORDS SUMMARY | 2024-10-02 19:41 | XMS_ITS | Encounter Summary ---
Author Organization [facility] Address [address] [place] [address] Care Team Providers Care Processes Chemical Design Engineer Name Role Phone Orlin Chambers MD Primary Care Provider [phone] Reason for Visit * Reason Comments Medication Refill Encounter Details Date Type Department Care Team (Late st Contact Info) Description 08/04/2019 Refill [facility] [address] [address] Orlin Chambers MD 100 [facility] [address] [place] [address] Insomnia, unspecified type Social History [...] type documented in this encounter Care Teams Processes Chemical Design Engineer Relationship Specialty Start Date End Date Orlin Chambers MD [address] [address] PCP - General Family Medicine 01/29/19 08/16/23 Juma Harrington [facility] Pulmonary Medicine 11/23/21 documented as of this encounter
--- OUTSIDE RECORDS SUMMARY | 2024-10-02 19:41 | XMS_ITS | Encounter Summary ---
Author Organization [facility] Address [address] [place] [address] Care Team Providers Care Metal Bonder Name Role Phone Orlin Chambers MD Primary Care Provider [phone] Encounter Details Date Type Department Care Team (Late st Contact Info) Description 02/27/2023 Scanned Document [facility] EMERGENCY [facility]AN Emergency Medicine, Scan [...] filedocumented in this encounter Care Teams Metal Bonder Relationship Specialty Start Date End Date Orlin Chambers MD [address] [place] [address] PCP - General Family Medicine 01/29/19 08/16/23 Juma Harrington [facility] Pulmonary Medicine 11/23/21 documented as of this encounter
--- OUTSIDE RECORDS SUMMARY | 2024-10-02 19:41 | XMS_ITS | Encounter Summary ---
Author Organization [facility] Address [address] [place] [address] Care Team Providers Care Home Teaching Grades 9 Thru 12 Teacher Name Role Phone Orlin Chambers MD Primary Care Provider Encounter Details Date Type Department Care Team (Late st Contact Info) Description 08/29/2022 Scanned Document [facility] ORTHO SURGERY [facility]AN [place] [address] [address] Social History Tobacco Use Types Packs/Day Years [...] on filedocumented in this encounter Care Teams Home Teaching Grades 9 Thru 12 Teacher Relationship Specialty Start Date End Date Orlin Chambers MD [address] [place] [address] [address] [place] [address] PCP - General Family Medicine 01/29/19 08/16/23 Juma Harrington [facility] Pulmonary Medicine 11/23/21 documented as of this encounter
--- OUTSIDE RECORDS SUMMARY | 2024-10-02 19:41 | XMS_ITS | Encounter Summary ---
Author Organization [facility] Address [address] [place] [address] Care Team Providers Care Glaze Supervisor Name Role Phone Orlin Chambers MD Primary Care Provider [phone] Reason for Visit * Reason Comments Medication Refill Encounter Details Date Type Department Care Team (Late st Contact Info) Description 08/04/2019 Refill [facility] [address] [facility] [address] [place] [address] Anayeli Del Rosario, MANAGER COUNCIL 100 [facility] [address] [place], [place] [phone] Hyperlipidemia, unspecified hyperlipidemia type Social History Tobacco [...] type documented in this encounter Care Teams Glaze Supervisor Relationship Specialty Start Date End Date Orlin Chambers MD 100 [place] [address] PCP - General Family Medicine 01/29/19 08/16/23 Juma Harrington [facility] Pulmonary Medicine 11/23/21 documented as of this encounter
--- OUTSIDE RECORDS SUMMARY | 2024-10-02 19:41 | XMS_ITS | Encounter Summary ---
Author Organization [facility] Address [address] [place] [address] Care Team Providers Care Administrative Support Technician Name Role Phone Orlin Chambers MD Primary Care Provider Encounter Details Date Type Department Care Team (Late st Contact Info) Description 06/03/2019 Scanned Document [facility] [address] [address] Provider, Generic Social History Tobacco [...] on filedocumented in this encounter Care Teams Administrative Support Technician Relationship Specialty Start Date End Date Orlin Chambers MD 100 [facility] [address] 203 [place], [place] [phone] PCP - General Family Medicine 01/29/19 08/16/23 Juma Harrington [facility] Pulmonary Medicine 11/23/21 documented as of this encounter
--- OUTSIDE RECORDS SUMMARY | 2024-10-02 19:41 | XMS_ITS | Encounter Summary ---
Author Organization [facility] Address [address] [place] [address] Care Team Providers Care Manager Center Name Role Phone Orlin Chambers MD Primary Care Provider [phone] Reason for Visit * Reason Comments Medication Refill Encounter Details Date Type Department Care Team (Late st Contact Info) Description 04/12/2023 Refill [facility] [address] [address] Orlin Chambers MD 100 [facility] [address] [place] [address] Insomnia, unspecified type Social History Tobacco Use [...] documented in this encounter Care Teams Manager Center Relationship Specialty Start Date End Date Orlin Chambers MD 100 [place] [address] PCP - General Family Medicine 01/29/19 08/16/23 Juma Harrington [facility] Pulmonary Medicine 11/23/21 documented as of this encounter
--- OUTSIDE RECORDS SUMMARY | 2024-10-02 19:41 | XMS_ITS | Encounter Summary ---
Author Organization [facility] Address [address] [place] [address] Care Team Providers Care Border Patrol Agent Name Role Phone Orlin Chambers MD Primary Care Provider [phone] Reason for Visit * Reason Comments Medication Refill Encounter Details Date Type Department Care Team (Late st Contact Info) Description 09/12/2019 Refill [facility] 10 100 [facility] [address] [place] [address] Anayeli Del Rosario, SAMPLE CHECKER 100 [facility] Liam [address] [place], [place] [phone] Anxiety Social History Tobacco Use Types Packs/Day [...] unspecified documented in this encounter Care Teams Border Patrol Agent Relationship Specialty Start Date End Date Orlin Chambers MD [address] [address] PCP - General Family Medicine 01/29/19 08/16/23 Juma Harrington [facility] Pulmonary Medicine 11/23/21 documented as of this encounter
--- OUTSIDE RECORDS SUMMARY | 2024-10-02 19:41 | XMS_ITS | Clinical Summary ---
Author Organization [facility] Address [address] [place] [address] Care Team Providers Care Kit Assembler Name Role Phone Pcp, No MD Primary [...] 3 - 19+ 3-dose series) 02/16/1984 Pneumococcal Vaccine, 50+ Ye ars (1 of 1 - [...] age to complete this topic Care Teams Kit Assembler Relationship Specialty Start Date End Date PcpVonda MD [address] [place], [place] [id number] PCP - General Internal Medicine 02/21/21
--- OUTSIDE RECORDS SUMMARY | 2024-10-02 19:41 | XMS_ITS | Encounter Summary ---
Author Organization [facility] Address [address] [place] [address] Care Team Providers Care Import Customs Clearing Agent Name Role Phone Orlin Chambers MD Primary Care Provider [phone] Encounter Details Date Type Department Care Team (Late st Contact Info) Description 10/06/2022 Scanned Document [facility] ORTHO SURGERY SCAN [place] [address] [address] Social History Tobacco Use Types Packs/Day Years [...] on filedocumented in this encounter Care Teams Import Customs Clearing Agent Relationship Specialty Start Date End Date Orlin Chambers MD [address] [place] [address] 203 [place] [address] PCP - General Family Medicine 01/29/19 08/16/23 Juma Harrington [facility] Pulmonary Medicine 11/23/21 documented as of this encounter
--- OUTSIDE RECORDS SUMMARY | 2024-10-02 19:41 | XMS_ITS | Encounter Summary ---
Author Organization [facility] Address [address] [place] [address] Care Team Providers Care Emergency Nurse Name Role Phone Orlin Chambers MD Primary Care Provider [phone] Reason for Visit * Reason Onset Date Comments Medication Refill 04/10/2023 Encounter Details Date Type Department Care Team (Late st Contact Info) Description 04/10/2023 Refill [facility] [address] [place] [address] 203 [place] [address] Orlin Chambers MD 100 [facility] Liam 203 [place], [place] [phone] Insomnia, unspecified type Social History Tobacco Use [...] documented in this encounter Care Teams Emergency Nurse Relationship Specialty Start Date End Date Orlin Chambers MD 100 [place] [address] PCP - General Family Medicine 01/29/19 08/16/23 Juma Harrington [facility] Pulmonary Medicine 11/23/21 documented as of this encounter
--- OUTSIDE RECORDS SUMMARY | 2024-10-02 19:41 | XMS_ITS | Encounter Summary ---
Author Organization [facility] Address [address] [place] [address] Care Team Providers Care Dealer Account Manager Name Role Phone Unavailable Primary Care Provider Unavailabl e Encounter Details Date Type Department Care Team ([facility] st Contact Info) Description 11/05/2023 Scanned Document [facility] CARDIOLOGY SCAN Cardiology, Scan Social History Tobacco [...] PM EST Sexual Orientation Homosexual (lesbian or chpora) 0 07/17/2021 6:18 PM EST documented as of this encounter Plan of Treatment Not on file documented as of this encounter Visit Diagnoses Not on filedocumented in this encounter Care Teams Dealer Account Manager Relationship Specialty Start Date End Date Juma Harrington [facility] Pulmonary Medicine 11/23/21 documented as of this encounter
--- OUTSIDE RECORDS SUMMARY | 2024-10-02 19:41 | XMS_ITS | Encounter Summary ---
Author Organization [facility] Address [address] [place] [address] Care Team Providers Care Nuisance Wildlife Trapper Name Role Phone Orlin Chambers MD Primary Care Provider Encounter Details Date Type Department Care Team (Late st Contact Info) Description 09/05/2022 Scanned Document [facility] 10 100 [facility] 203 [place] [address] Orlin Chambers MD 100 [facility] 203 [place] [address] Social History Tobacco Use Types Packs/Day Years [...] on filedocumented in this encounter Care Teams Nuisance Wildlife Trapper Relationship Specialty Start Date End Date Orlin Chambers MD [address] [address] PCP - General Family Medicine 01/29/19 08/16/23 Juma Harrington [facility] Pulmonary Medicine 11/23/21 documented as of this encounter
--- OUTSIDE RECORDS SUMMARY | 2024-10-02 19:41 | XMS_ITS | Encounter Summary ---
Author Organization [facility] Address [address] [place] [address] Care Team Providers Care Basket Hand Braider Name Role Phone Orlin Chambers MD Primary Care Provider [phone] Reason for Visit * Reason Onset Date Comments Medication Refill 11/13/2022 Encounter Details Date Type Department Care Team (Late st Contact Info) Description 11/13/2022 Refill [facility] [address] [place] [address] 203 [place] [address] Orlin Chambers MD 100 [facility] Liam 203 [place], [place] [phone] Insomnia, unspecified type Social History Tobacco Use [...] type documented in this encounter Care Teams Basket Hand Braider Relationship Specialty Start Date End Date Orlin Chambers MD 100 [place] [address] PCP - General Family Medicine 01/29/19 08/16/23 Juma Harrington [facility] Pulmonary Medicine 11/23/21 documented as of this encounter
--- OUTSIDE RECORDS SUMMARY | 2024-10-02 19:41 | XMS_ITS | Clinical Summary ---
Author Organization [facility] Address [address] [place] [address] Care Team Providers Care Academic Vice President Name Role Phone Unavailable Primary Care Provider [...] Urine, Random (06/06/2022 8:55 AM EST) Pathologist [facility] Creatinine, Urine, Random 242 20 - 320 mg/dL [employer] Microalbumin, Urine, Random 12.1 See Note: mg/dL [employer] Comment: Reference Range: Reference Range Not established Microalbumin/Creat inine Ratio 50(H) <30 mcg/mg creat [employer] Comment: The ADA defines abnormalities in albumin [...] FASTING: YES Orlin Chambers MD URINE ORDERABLES [employer] [address] [place] [address], [place] [address] * (ABNORMAL) Hemoglobin A1c (06/06/2022 8:55 AM EST) Hemoglobin A1C 6.5(H) <5.7 % of total Hgb [employer] Comment: For someone without known diabetes, a [...] MD LAB BLOOD ORDERABLES Performing Organization Address City/[facility] [place]/ZIP Co de Phone Number [employer] [address] [address] * (ABNORMAL) Basic Metabolic Panel (06/06/2022 8:55 AM EST) Glucose 129(H) 65 - 99 mg/dL [employer] Comment: ? Fasting reference interval For someone without known diabetes, a glucose value >125 mg/dL indicates that they may have diabetes and this should be confirmed with a follow-up test. Blood Urea Nitrogen (BUN) 33(H) 7 - 25 mg/dL [employer] Creatinine 1.49(H) 0.70 - 1.30 mg/dL [employer] Creatinine w/ eGFR 54(L) > OR = 60 mL/min/1.7 3m2 [employer] Comment: The eGFR is based on the CKD-EPI 2020 equation. To calculate the new eGFR from a previous Creatinine or Cystatin C result, go to https://www.kidney.org/professionals/ kdoqi/gfr%5Fcalculator BUN/Creatinine Ratio 22 6 - 22 (calc) [employer] Sodium 139 135 - 146 mmol/L [employer] Potassium 4.1 3.5 - 5.3 mmol/L [employer] Chloride 102 98 - 110 mmol/L [employer] CO2 27 20 - 32 mmol/L [employer] Calcium 9.5 8.6 - 10.3 mg/dL [employer] Blood specimen (specimen) 06/06/2022 8:55 AM EST 06/06/2022 8:55 AM EST Narrative [facility] - 06/07/2022 4:59 PM EST FASTING:YES FASTING: YES Orlin Chambers MD LAB BLOOD ORDERABLES Performing Organization Address City/[facility] [place]/ZIP Co de Phone Number [employer] [address], [place] [address] * (ABNORMAL) Lipid Panel [facility] Direct LDL (12/07/2021 8:13 AM EDT) Cholesterol, Total 191 <200 mg/dL [employer] Cholesterol, HDL 48 > OR = 40 mg/dL [employer] Triglycerides 237(H) <150 mg/dL [employer] Comment: If a non-fasting specimen was collected, consider repeat triglyceride testing on a fasting specimen if clinically indicated. Chris et al. J. of Clin. Lipidol. 2015;9:129-169. LDL Cholesterol 107(H) mg/dL (calc) [employer] Comment: Reference range: <100 Desirable range <100 mg/dL for primary prevention; ?? <70 mg/dL for patients with CHD or diabetic patients with > or = 2 CHD risk factors. LDL-C is now calculated using the Michael-Rosario calculation, which is a validated novel method providing better accuracy than the Friedewald equation in the estimation of LDL-C. Michael SS et al. ELSY. 2013;310(19): 3311-1616 (http://education.mobiManage/faq/QSZ834) Cholesterol/HDL Ratio 4.0 <5.0 (calc) [employer] Non HDL Chol. (LDL+VLDL) 143(H) <130 mg/dL (calc) [employer] Comment: For patients with diabetes plus 1 major ASCVD risk factor, treating to a non-HDL-C goal of <100 mg/dL (LDL-C of <70 mg/dL) is considered a therapeutic option. Blood specimen (specimen) 12/07/2021 8:13 AM EDT 12/07/2021 8:13 AM EDT Narrative [facility] - 12/08/2021 12:09 AM EDT FASTING:YES FASTING: YES Orlin Chambers MD LAB BLOOD ORDERABLES [employer] [address], [place] [address] * CT Thorax w/o contrast (05/29/2019 9:23 [...] your patient to us, Travis Villarreal MD [id number] (Electronically Signed - 05/29/2019 09:23) Copy: ORLIN CHAMBERS DO [facility] 10 100 [facility] [place] [address] PATIENT , ?? Narrative 05/29/2019 9:23 AM EST EXAMINATION: CT CHEST WITHOUT CONTRAST CLINICAL INFORMATION: Left lower lobe pulmonary nodule. COMPARISON: No relevant prior studies are available for comparison. TECHNIQUE: Multidetector volumetric CT imaging of the chest was done. Axial MIP volume rendering provided. Sagittal and coronal reformatted images were obtained. DLP: 523.69 mGy-cm FINDINGS: CYTOGENETIC TECHNOLOGIST: Unremarkable. LUNGS: There is a 3 mm [...] images were obtained. DLP: 523.69 mGy-cm FINDINGS: CYTOGENETIC TECHNOLOGIST: Unremarkable. LUNGS: There is a 3 mm nodule medially within the right upper lobe(axial image 151/505). There is an adjacent 1-2 mm nodule (axial minbd152/505). There is an irregular 0.6 cm nodule [...] interval change. According to the UPDATED 2017 [facility] recommendations, the advised follow up imaging for [...] your patient to us, Travis Villarreal MD [id number] (Electronically Signed - 05/29/2019 09:23) Copy: ORLIN CHAMBERS DO [facility] 10 100 [place] [address] PATIENT , Kelly Bustillo MD IMG CT ORDERABLES from Last 3 Months or Most Recently Relevant to Health Maintenance Care Teams Academic Vice President Relationship Specialty Start Date End Date Juma Harrington [facility] Pulmonary Medicine 11/23/21
--- OUTSIDE RECORDS SUMMARY | 2024-10-02 19:41 | XMS_ITS | Encounter Summary ---
Author Organization [facility] Address [address] [place] [address] Care Team Providers Care X Ray Developing Machine Operator Name Role Phone Orlin Chmabers MD Primary Care Provider [phone] Reason for Visit * Reason Comments Medication Refill Encounter Details Date Type Department Care Team (Late st Contact Info) Description 11/04/2019 Refill [facility] 10 100 [facility] 203 [place] [phone] Anayeli Del Rosario APRN 100 [facility] Liam 203 [place], [place] [phone] Anxiety Social History Tobacco Use Types Packs/Day [...] unspecified documented in this encounter Care Teams X Ray Developing Machine Operator Relationship Specialty Start Date End Date Orlin Chambers MD [address] [address] PCP - General Family Medicine 01/29/19 08/16/23 Juma Harrington [facility] Pulmonary Medicine 11/23/21 documented as of this encounter
--- OUTSIDE RECORDS SUMMARY | 2024-10-02 19:41 | XMS_ITS | Encounter Summary ---
Author Organization [facility] Address [address] [place] [address] Care Team Providers Care Net Sql Developer Name Role Phone Orlin Chambers MD Primary Care Provider [phone] Reason for Visit * Reason Comments Medication Refill Encounter Details Date Type Department Care Team (Late st Contact Info) Description 04/10/2023 Refill [facility] [address] [address] Orlin Chambers MD 100 [facility] Liam 203 [place] [address] Insomnia, unspecified type Social History Tobacco Use [...] type documented in this encounter Care Teams Net Sql Developer Relationship Specialty Start Date End Date Orlin Chambers MD 100 [place] [address] PCP - General Family Medicine 01/29/19 08/16/23 Juma Harrington [facility] Pulmonary Medicine 11/23/21 documented as of this encounter
--- OUTSIDE RECORDS SUMMARY | 2024-10-02 19:41 | XMS_ITS | Encounter Summary ---
Author Organization [facility] Address [address] [place] [address] Care Team Providers Care Newspaper Copy Editor Name Role Phone Orlin Chambers MD Primary Care Provider [phone] Reason for Visit * Reason Onset Date Comments Medication Refill 11/10/2022 Encounter Details Date Type Department Care Team (Late st Contact Info) Description 11/10/2022 Refill [facility] [address] [place] [address] 203 [place] [address] Orlin Chambers MD 100 [facility] Liam 203 [place], [place] [phone] Insomnia, unspecified type Social History Tobacco Use [...] type documented in this encounter Care Teams Newspaper Copy Editor Relationship Specialty Start Date End Date Orlin Chambers MD 100 [place] [address] PCP - General Family Medicine 01/29/19 08/16/23 Juma Harrington [facility] Pulmonary Medicine 11/23/21 documented as of this encounter
--- OUTSIDE RECORDS SUMMARY | 2024-10-02 19:41 | XMS_ITS | Encounter Summary ---
Author Organization [facility] Address [address] [place] [address] Care Team Providers Care Construction Electrician Name Role Phone Orlin Chambers MD Primary Care Provider [phone] Reason for Visit * Reason Comments Medication Refill Encounter Details Date Type Department Care Team (Late st Contact Info) Description 10/09/2022 Refill [facility] 10 100 [facility] [address] [place] [address] Anayeli Del Rosario APRN 100 [facility] Liam 203 [place], [place] [phone] Anxiety Social History Tobacco Use Types Packs/Day [...] PM EST Sexual Orientation Homosexual (lesbian or hcopra) 0 07/17/2021 6:18 PM EST documented as of this encounter Plan of Treatment Not on file documented as of this encounter Visit Diagnoses Diagnosis Anxiety Anxiety state, unspecified documented in this encounter Care Teams Construction Electrician Relationship Specialty Start Date End Date Orlin Chambers MD [address] [address] PCP - General Family Medicine 01/29/19 08/16/23 Juma Harrington [facility] Pulmonary Medicine 11/23/21 documented as of this encounter
--- OUTSIDE RECORDS SUMMARY | 2024-10-02 19:41 | XMS_ITS | Encounter Summary ---
Author Organization [facility] Address [address] [place] [address] Care Team Providers Care Daub Color Mixer Name Role Phone Orlin Chambers MD Primary Care Provider Reason for Visit * Reason Onset Date Comments Medication Refill 04/12/2023 Encounter Details Date Type Department Care Team (Late st Contact Info) Description 04/12/2023 Refill [facility] [address] [place] [address] 203 [place] [address] Orlin Chambers MD 100 [facility] Liam 203 [place], [place] [address] Insomnia, unspecified type Social History Tobacco Use [...] type documented in this encounter Care Teams Daub Color Mixer Relationship Specialty Start Date End Date Orlin Chambers MD 100 [place] [address] PCP - General Family Medicine 01/29/19 08/16/23 Juma Harrington [facility] Pulmonary Medicine 11/23/21 documented as of this encounter
--- OUTSIDE RECORDS SUMMARY | 2024-10-02 19:42 | XMS_ITS | Clinical Summary ---
Author Organization [facility] Address [address] [place] [address] Care Team Providers Care Administrative Specialist Name Role Phone Orlin Chambers Primary Care Provider [phone] Allergies No known active allergies Medications Medication [...] age to complete this topic Care Teams Administrative Specialist Relationship Specialty Start Date End Date Orlin Chambers DO PCP - General Family Medicine 06/17/18
--- OUTSIDE RECORDS SUMMARY | 2024-10-02 19:42 | XMS_ITS | Encounter Summary ---
Author Organization [facility] Address [address] [place] [address] Care Team Providers Care Wax Cutter Name Role Phone Orlin Chambers MD Primary Care Provider Encounter Details Date Type Department Care Team (Late st Contact Info) Description 12/06/2022 Scanned Document [facility] [address] [place] [address] Cardiology, Scan Social History Tobacco Use [...] on filedocumented in this encounter Care Teams Wax Cutter Relationship Specialty Start Date End Date Orlin Chambers MD [address] [address] PCP - General Family Medicine 01/29/19 08/16/23 Juma Harrington [facility] Pulmonary Medicine 11/23/21 documented as of this encounter
--- OUTSIDE RECORDS SUMMARY | 2024-10-02 19:42 | XMS_ITS | Encounter Summary ---
Author Organization [facility] Address [address] [place] [address] Care Team Providers Care Construction Area Manager Name Role Phone Orlin Chambers MD Primary Care Provider [phone] Encounter Details Date Type Department Care Team (Late st Contact Info) Description 05/25/2019 Scanned Document [facility] Pulmonary and Critical Care- [address] [address] Kelly Bustillo MD [address] [place] [address] Social History Tobacco Use Types Packs/Day Years [...] on filedocumented in this encounter Care Teams Construction Area Manager Relationship Specialty Start Date End Date Orlin Chambers MD [address] [place] [id number] PCP - General Family Medicine 01/29/19 08/16/23 Juma Harrington [facility] Pulmonary Medicine 11/23/21 documented as of this encounter
--- OUTSIDE RECORDS SUMMARY | 2024-10-02 19:42 | XMS_ITS | Encounter Summary ---
Author Organization [facility] Address [address] [place] [address] Care Team Providers Care Spring Fitter Name Role Phone Orlin Chambers MD Primary Care Provider [phone] Encounter Details Date Type Department Care Team (Late st Contact Info) Description 02/27/2023 Scanned Document [facility] EMERGENCY MED SCAN Emergency Medicine, [...] on filedocumented in this encounter Care Teams Spring Fitter Relationship Specialty Start Date End Date Orlin Chambers MD [address] [place] [address] PCP - General Family Medicine 01/29/19 08/16/23 Juma Harrington [facility] Pulmonary Medicine 11/23/21 documented as of this encounter
--- OUTSIDE RECORDS SUMMARY | 2024-10-02 19:42 | XMS_ITS | Encounter Summary ---
Author Organization [facility] Address [address] [place] [address] Care Team Providers Care Sorting Livestock Worker Name Role Phone Orlin Chambers MD Primary Care Provider [phone] Encounter Details Date Type Department Care Team (Late st Contact Info) Description 01/30/2023 Scanned Document [facility] ORTHO SURGERY SCAN [place], [facility] [address] [address] Social History Tobacco Use Types Packs/Day Years [...] on filedocumented in this encounter Care Teams Sorting Livestock Worker Relationship Specialty Start Date End Date Orlin Chambers MD [address] [place] [address] [address] [place] [address] PCP - General Family Medicine 01/29/19 08/16/23 Juma Harrington [facility] Pulmonary Medicine 11/23/21 documented as of this encounter
--- OUTSIDE RECORDS SUMMARY | 2024-10-02 19:42 | XMS_ITS | Encounter Summary ---
Author Organization [facility] Address [address] [place] [address] Care Team Providers Care Campus Dean Name Role Phone Orlin Chambers MD Primary Care Provider Encounter Details Date Type Department Care Team (Late st Contact Info) Description 08/24/2020 Scanned Document [facility] [address] [place] [id number] Provider, External, [address] [place] [address] Social History Tobacco Use Types Packs/Day Years [...] on filedocumented in this encounter Care Teams Campus Dean Relationship Specialty Start Date End Date Orlin Chambers MD [address] [place] [address] PCP - General Family Medicine 01/29/19 08/16/23 Juma Harrington [facility] Pulmonary Medicine 11/23/21 documented as of this encounter
--- OUTSIDE RECORDS SUMMARY | 2024-10-02 19:42 | XMS_ITS | Clinical Summary ---
Author Organization [facility] Address [address] [place] [address] Care Team Providers Care Credit Authorizer Name Role Phone Orlin Chambers DO Primary Care Provider [phone] Surgical History Surgery Date Site/Laterality Comments WISDOM TOOTH EXTRACTION PROCEDURE:WISDOM TOOTH EXTRACTION KNEE ARTHROSCOPY 06/03/2019 Left PROCEDURE:KNEE ARTHROSCOPY;COMMENT:Procedure: LEFT KNEE ARTHROSCOPY, PARTIAL MEDIAL MENISCECTOMY; Surgeon: David Pack MD; Location: [facility]; Service: [facility]; Laterality: Left; Medical [...] age to complete this topic Care Teams Credit Authorizer Relationship Specialty Start Date End Date Orlin Chambers DO [address] [place] [address] PCP - General Family Medicine 06/17/18
--- OUTSIDE RECORDS SUMMARY | 2024-10-02 19:42 | XMS_ITS | Encounter Summary ---
Author Organization [facility] Address [address] [place] [address] Care Team Providers Care Vending Technician Name Role Phone Orlin Chambers MD Primary Care Provider [phone] Reason for Visit * Reason Comments Medication Refill Encounter Details Date Type Department Care Team (Late st Contact Info) Description 02/01/2020 Refill [facility] [address] [facility] [address] [place] [address] Anayeli Del Rosario, REY 100 [facility] [address] [place], [place] [id number] Anxiety Social History Tobacco Use Types Packs/Day [...] unspecified documented in this encounter Care Teams Vending Technician Relationship Specialty Start Date End Date Orlin Chambers MD [address] [address] PCP - General Family Medicine 01/29/19 08/16/23 Juma Harrington [facility] Pulmonary Medicine 11/23/21 documented as of this encounter
--- OUTSIDE RECORDS SUMMARY | 2024-10-02 19:42 | XMS_ITS | Encounter Summary ---
Author Organization [facility] Address [address] [place] [address] Care Team Providers Care Vulcan Crewmember Name Role Phone Orlin Chambers MD Primary Care Provider Encounter Details Date Type Department Care Team (Late st Contact Info) Description 09/08/2020 Scanned Document [facility] [address] [place] [phone] Provider, External, [address] [place] [address] Social History Tobacco Use Types Packs/Day Years [...] on filedocumented in this encounter Care Teams Vulcan Crewmember Relationship Specialty Start Date End Date Orlin Chambers MD 100 [place] [address] PCP - General Family Medicine 01/29/19 08/16/23 Juma Harrington [facility] Pulmonary Medicine 11/23/21 documented as of this encounter
--- OUTSIDE RECORDS SUMMARY | 2024-10-02 19:42 | XMS_ITS | Encounter Summary ---
Author Organization [facility] Address [address] [place] [address] Care Team Providers Care Quarry Extraction Worker Name Role Phone Orlin Chambers MD Primary Care Provider Encounter Details Date Type Department Care Team (Late st Contact Info) Description 01/25/2023 Scanned Document [facility] ORTHO SURGERY SCAN [place], [facility] [address] [address] Social History Tobacco Use Types Packs/Day Years [...] on filedocumented in this encounter Care Teams Quarry Extraction Worker Relationship Specialty Start Date End Date Orlin Chambers MD [address] [place] [address] [address] [place] [address] PCP - General Family Medicine 01/29/19 08/16/23 Juma Harrington [facility] Pulmonary Medicine 11/23/21 documented as of this encounter
--- OUTSIDE RECORDS SUMMARY | 2024-10-02 19:42 | XMS_ITS | Encounter Summary ---
Author Organization [facility] Address [address] [place] [address] Care Team Providers Care Air Analysis Engineering Technician Name Role Phone Orlin Chambers MD Primary Care Provider [phone] Encounter Details Date Type Department Care Team (Late st Contact Info) Description 01/29/2019 Scanned Document [facility] 10 100 [facility] [address] [place] [address] Provider, [place], [address] [place] [address] Social History Tobacco Use Types Packs/Day Years [...] on filedocumented in this encounter Care Teams Air Analysis Engineering Technician Relationship Specialty Start Date End Date Orlin Chambers MD 100 [facility] [address] [place], [place] [phone] PCP - General Family Medicine 01/29/19 08/16/23 Juma Harrington [facility] Pulmonary Medicine 11/23/21 documented as of this encounter
--- OUTSIDE RECORDS SUMMARY | 2024-10-02 19:42 | XMS_ITS | Encounter Summary ---
Author Organization [facility] Address [address] [place] [address] Care Team Providers Care Operator Supply Name Role Phone Orlin Chambers MD Primary Care Provider [phone] Encounter Details Date Type Department Care Team (Late st Contact Info) Description 10/18/2020 Scanned Document [facility] 10 100 [facility] 203 [place] [address] Michael Sweeney MD [address] [place] [address] 201 [place] [address] Social History Tobacco Use Types Packs/Day Years [...] on filedocumented in this encounter Care Teams Operator Supply Relationship Specialty Start Date End Date Orlin Chambers MD 100 [facility] [address] [place], [place] [phone] PCP - General Family Medicine 01/29/19 08/16/23 Juma Harrington [facility] Pulmonary Medicine 11/23/21 documented as of this encounter
--- OUTSIDE RECORDS SUMMARY | 2024-10-02 19:42 | XMS_ITS | Data Portability ---
Author Organization [facility], Main Office Address [address] [place] [address] Care Team Providers Care Hot Roll Inspector Name Role Phone RYAN BUSTOS Primary Care [...] BMP, serum or plasm a 2013 014 [facility] Not available 4 19:52:00 Referral gastr marjorie fong ist refer ral 2015 016 jourdan [facility], [address] [place], [address], 6 11:02:[address]/di etiti an refer ral 2015 016 [facility] Not available 6 21:59:[address]/di etiti an refer ral 2013 014 [facility] Not available 4 19:52:00 Procedures colon oscop y scree farhana (PROC ) - Due for scree nign colon oscop y and has had diver tic x 2 in last 6 month s. 2014 015 [email or web address], [address] [place] [address], [address], 6 11:22:40 Surgeries None recor ded. Imaging elect arvin lópez am 2015 016 [facility] In-Office Order, Internal Use Only DO Not Attach Compendium DO Not Attach Compendium, Do Not Delete/merge, [id number] 6 21:59:57 Medication Orders bupro pion HCl XL 300 mg 24 hr table t, exten ded relea se 2015 016 [id number], [address], [place], [address], 6 21:59:58 omepr azole 20 mg table t,bryan ny relea se 2015 016 [id number], [address] [place], [address], 6 21:59:57 simva stati n 80 mg table t 2015 016 [id number], [address] [place], [address], 6 21:59:57 chlor thali done 25 mg table t 2015 016 [id number], [address] [place], [address], 6 21:59:57 Cipro 500 mg table t 2014 015 [email or web address] os [id number], [address] [place], [address], 6 09:13:40 metro nidaz ole 500 mg table t 2014 015 [email or web address] os [id number], [address] [place], [address], 6 09:13:40 Patient Targets Encounter Date Encounter Id Patient Goals Patient Target Last Modified By Organization Details Last Modified Time 05/12/2014 [id number] Ongoing of Microalbumin/Cr eatinine Ratio yearly Not [...] Bring meter and/or readings to your appointments [facility] Not available 05/14/2014 19:51:49 08/25/2015 [id number] snf goal of Blood Pressure 140 / 90 Not available Not available Not available couturiere goal of Exercise level Not available Not available Not available snf goal of Tobacco Smoking Status Not available [...] blood pressures and bring readings to appointments. [facility] Not available 08/25/2015 21:59:58 Patient Instructions Encounter Date Encounter Id Patient Instructions Last Modified By Organization Details Last Modified Time 05/12/2014 [id number] deciding about u sing medicines to quit smoking [facility] Not available 05/14/2014 19:52:00 Quitting Tobacco : [facility] 05/14/2014 19:52:00 low back pain: exercises pheuth Not available 05/14/2014 19:52:00 exercise program : getting started [facility] Not available 05/14/2014 19:52:00 high blood press ure: care instructions [facility] Not available 05/14/2014 19:52:00 learning about h igh blood pressure [facility] Not available 05/14/2014 19:52:00 starting a weigh t loss plan: care instructions [facility] Not available 05/14/2014 19:52:00 Nutrition Referr al and Weight Management Follow-up Information [facility] Not available 05/14/2014 19:52:00 Medications were reviewed at this visit and reconciled. Changes in the active medications are reflected in the current medication list and discussed with patient (or caregiver) with instructions for follow up as needed. Printed medication list provided to the patient as part of the visit summary. [facility] 05/14/2014 19:51:49 11/02/2014 [id number] diverticulitis: care instructions [email or web address] Not available 11/02/2014 10:30:33 learning about diverticulosis and diverticulitis [email or web address] Not available 11/02/2014 10:30:33 PT to FU with PC P in 1 month, beforehand if persistent of worsening pain, fever, vomiting, bloody/black stool.? ? ? [email or web address] Not available 11/02/2014 10:30:02 05/28/2015 [id number] Colon Cancer Screening [facility] Not available 05/31/2015 15:33:50 learning about c olon cancer phelmuth Not available 05/29/2015 12:23:20 To call or retur n for worsening or concerns [email or web address] Not available 05/28/2015 16:41:03 Go to ER if worsening abdominal pain, fever or persistent vomiting. I have reviewed the note and agree with the assessment and plan of care. [facility] Not available 05/29/2015 12:23:21 08/25/2015 [id number] deciding about u sing medicines to quit smoking p[facility] Not available 08/25/2015 21:59:57 Quitting Tobacco : Care Instructions [facility] Not available 08/25/2015 21:59:58 gastroesophageal reflux disease (GERD): care instructions [facility] Not available 08/25/2015 21:59:57 learning about h igh blood sugar [facility] Not available 08/25/2015 21:59:57 fatigue: [facility] Not [facility] 08/25/2015 21:59:57 Colon Cancer Screening [facility] Not available 08/25/2015 21:59:57 learning about c olon cancer phelm[facility] Not available 08/25/2015 21:59:57 high blood press ure: care instructions [facility] Not available 08/25/2015 21:59:57 learning about h igh blood pressure [facility] Not available 08/25/2015 21:59:57 starting a weigh t loss plan: care instructions [facility] Not available 08/25/2015 21:59:57 Nutrition Referr al and Weight Management Follow-up Information [facility] Not available 08/25/2015 21:59:57 Continue to emi tor home blood pressures and bring to next appointment. [facility] Not available 08/25/2015 10:11:42 Medications were reviewed at this visit and reconciled. Changes in the active medications are reflected in the current medication list and discussed with patient (or caregiver) with instructions for follow up as needed. Printed medication list provided to the patient as part of the visit summary. [facility] Not available 08/25/2015 10:11:42 Reason for Referral Sas Administrator/dietitian Refer ral for Body mass index 30+ - obesity Referring Physician: Ryan Bustos, Internal Medicine, Encounter Date: 05/12/2014 Referring Physician: Ryan dean, Internal Medicine, Encounter Date: 08/25/2015 Sas Administrator/dietitian Refer ral for Body mass index 30+ [...] DO Not Attach Compendium, Do Not Delete/merge, [id number] 08/25/2015 09:20:03 08/25/19 16 08/25/2015 elect rocar diogr am QRS Not Available In-Office Order Internal Use Only DO Not Attach Compendium DO Not Attach Compendium, Do Not Delete/merge, [id number] 08/25/2015 09:20:03 08/25/19 16 08/25/2015 elect rocar diogr am WI Interval Not Available In-Off ice Order Internal Use Only DO Not Attach Compendium DO Not Attach Compendium, Do Not Delete/merge, [id number] 08/25/2015 09:20:03 08/25/19 16 08/25/2015 elect rocar diogr am QRS Duration Not Available In-Of fice Order Internal Use Only DO Not Attach Compendium DO Not Attach Compendium, Do Not Delete/merge, [id number] 08/25/2015 09:20:03 08/25/19 16 08/25/2015 elect rocar diogr am QT Interval Not Available In-Off ice Order Internal Use Only DO Not Attach Compendium DO Not Attach Compendium, Do Not Delete/merge, [id number] 08/25/2015 09:20:03 05/12/20 14 05/12/2014 lipid panel , serum cholesterol, total 154 mg/dL (<200) Not Available [facility] (Centralized Electronic Ordering - All Locations) Patient Can Go To The Location Of Their Choice, [id number] 05/25/2014 15:11:14 05/12/20 14 05/12/2014 lipid panel , serum triglyceride 118 mg/dL (<150) Not Available [facility] (Centralized Electronic Ordering - All Locations) Patient Can Go To The Location Of Their Choice, [id number] 05/25/2014 15:11:14 05/12/20 14 05/12/2014 lipid panel , serum HDL chol 45 mg/dL (>39) Not Available [facility] (Centralized Electronic Ordering - All Locations) Patient Can Go To The Location Of Their Choice, [id number] 05/25/2014 15:11:14 05/12/20 14 05/12/2014 lipid panel , serum LDL cholesterol, calculated 85 mg/dL (0-130 ) Not Available [facility] (Centralized Electronic Ordering - All Locations) Patient Can Go To The Location Of Their Choice, [id number] 05/25/2014 15:11:14 05/12/20 14 05/12/2014 lipid panel , serum non HDL cholesterol (calc) 109 mg/dL (<160) Not Available [facility] (Centralized Electronic Ordering - All Locations) Patient Can Go To The Location Of Their Choice, [id number] 05/25/2014 15:11:14 05/12/20 14 05/12/2014 BMP, serum or plasm a glucose 89 mg/dL (70-99 ) Not Available [facility] (Centralized Electronic Ordering - All Locations) Patient Can Go To The Location Of Their Choice, [id number] 05/25/2014 15:11:13 05/12/20 14 05/12/2014 BMP, serum or plasm a BUN 21 mg/dL (6-20) high Not Available [facility] (Centralized Electronic Ordering - All Locations) Patient Can Go To The Location Of Their Choice, [id number] 05/25/2014 15:11:13 05/12/20 14 05/12/2014 BMP, serum or plasm a creatinine 1.1 mg/dL (0.7-1 .2) Not Available [facility] (Centralized Electronic Ordering - All Locations) Patient Can Go To The Location Of Their Choice, [id number] 05/25/2014 15:11:13 05/12/20 14 05/12/2014 BMP, serum or plasm a sodium 140 mmol/ L (133-1 45) Not Available [facility] (Centralized Electronic Ordering - All Locations) Patient Can Go To The Location Of Their Choice, [id number] 05/25/2014 15:11:13 05/12/20 14 05/12/2014 BMP, serum or plasm a potassium 4.3 mmol/ L (3.6-5 .2) Not Available [facility] (Centralized Electronic Ordering - All Locations) Patient Can Go To The Location Of Their Choice, [id number] 05/25/2014 15:11:13 05/12/20 14 05/12/2014 BMP, serum or plasm a chloride 99 mmol/ L (98-10 7) Not Available [facility] (Centralized Electronic Ordering - All Locations) Patient Can Go To The Location Of Their Choice, [id number] 05/25/2014 15:11:13 05/12/20 14 05/12/2014 BMP, serum or plasm a bicarbonate 30 mmol/ L (22-29 ) high Not Available [facility] (Centralized Electronic Ordering - All Locations) Patient Can Go To The Location Of Their Choice, [id number] 05/25/2014 15:11:13 05/12/20 14 05/12/2014 BMP, serum or plasm a anion gap 11 (4-17) Not Available [facility] (Centralized Electronic Ordering - All Locations) Patient Can Go To The Location Of Their Choice, [id number] 05/25/2014 15:11:13 05/12/20 14 05/12/2014 BMP, serum or plasm a calcium 9.9 mg/dL (8.6-1 0.5) Not Available [facility] (Centralized Electronic Ordering - All Locations) Patient Can Go To The Location Of Their Choice, [id number] 05/25/2014 15:11:13 05/12/20 14 05/12/2014 BMP, serum [...] Go To The Location Of Their Choice, [id number] 05/25/2014 15:11:13 05/12/20 14 05/12/2014 BMP, serum [...] Go To The Location Of Their Choice, [id number] 05/28/2015 19:59:07 05/28/2005/28/2015 CBC w/ auto diff [...] resul t No observ ation record ed. [facility] Not Available 2015 09:50:37 08/25/19 16 carol lópez am No observ ation record ed. [facility] Not Available 2015 09:41:39 Result Notes None recorded. Problems Name Problem SNOMED Code Status Onset Date Resolution Date Notes Provider Name and Address Organization Details Recorded Time Sprains and strains of joints and adjacent muscles Completed 201102/19/2014 RECORDED 04/23/20 12 9:33AM BY DIXON HOLLAND MA, ANNOTATI ON/ADDEN DUM BLAYNE Hurtado, [facility] 6 09:33:55 Bicipita l tenosyno vitis [id number] Completed 201202/19/2014 IMPRESSI ON: AT ATTACHME NT AT ELBOW. CONTINUE ALEVE; RECORDED 10/24/19 13 10:00AM BY HIEN MANNING MA, ANNOTATI ON/ADDEN DUM BLAYNE Hurtado, [facility] 6 09:33:55 Carpal tunnel syndrome 10182102 Active 2013 BLAYNE Hurtado, [facility] 6 09:33:55 Chest pain 70544366 Completed 201102/19/2014 RECORDED 04/23/20 12 9:33AM BY DIXON HOLLAND MA, ANNOTATI ON/ADDEN DUM BLAYNE Hurtado, [facility] 6 09:33:55 Closed fracture of lower end of radius AND ulna 71383814 Completed 200802/19/2014 RECORDED 05/20/20 09 8:20AM BY RYAN BUSTOS MD, ANNOTATI ON/ADDEN DUM BLAYNE Hurtado, [facility] 6 09:33:55 Disorder of kidney and/or ureter 122363775 Completed 200802/19/2014 IMPRESSI ON: CREATINI NE 1.4 (11/2006) ; RECORDED 05/20/20 09 8:20AM BY RYAN BUSTOS MD, ANNOTJEANNIE ON/ADDEN DUM BLAYNE Hurtado, [facility] 6 09:33:55 Edema [id number] Completed 200802/19/2014 RECORDED 05/20/20 09 7:44AM BY HIEN MANNING MA, ANNOTATI ON/ADDEN DUM BLAYNE Hurtado, [facility] 6 09:33:55 Influenz a vaccine needed [id number] 06 Completed 201102/19/2014 RECORDED 03/19/20 12 8:37AM BY NADYA CAMILO, OFFICE VISIT BLAYNE Hurtado, [facility] 6 09:33:55 Follow-u p encounte r Completed 201102/19/2014 RECORDED 03/19/20 12 8:24AM BY LETTY LUNA ON/ADDEN DUM BLAYNE Hurtado, [facility] 6 09:33:55 Adult health examinat ion Completed 201102/19/2014 RECORDED 04/23/20 12 9:33AM BY DIXON HOLLAND MA, ANNOTATI ON/ADDEN DUM BLAYNE Hurtado, [facility] 6 09:33:55 General examinat ion of patient Completed 200702/19/2014 RECORDED 07/14/20 08 7:03AM BY LETTY FU ON/ADDEN DUM BLAYNE Hurtado, [facility] 6 09:33:55 Hypercho lesterol emia 46131602 Completed 201202/19/2014 RECORDED 11/26/19 13 1:46PM BY DIXON HOLLAND MA ANNOTJEANNIE ON/ADDEN DUM HienBLAYNE Sloan [facility] 6 09:33:54 Hypersom donis 07754622 Completed 201102/19/2014 RECORDED 06/18/20 12 7:23AM BY LETTY BERNAL ON/[facility] 09:[facility] Epidermo id cyst of skin 972632552 Completed 201102/19/2014 RECORDED 03/19/20 12 8:24AM BY LETTY LUNA ON/ADDEN [facility] 09:[facility]:55 Renewal of prescrip tion Completed 201202/19/2014 RECORDED 11/26/19 13 1:46PM BY DIXON HOLLAND MA, LETTY ON/ADDEN DUM [facility] 6 09:[facility] Administ ration of bacteria l and viral vaccine Completed 200702/19/2014 RECORDED 03/31/20 08 7:18AM BY HIEN MANNING MA, OFFICE VISIT [facility] 09:[facility]:55 Hyperhid rosis 535555793 Completed 201102/19/2014 RECORDED 04/23/20 12 9:33AM BY DIXON HOLLAND MA, LETTY ON/ADDEN DUM [facility] 6 09:[facility]:55 Tobacco user [id number] Completed 201102/19/2014 RECORDED 03/19/20 12 8:24AM BY LETTY LUNA ON/ADDEN DUM BLAYNE Hurtado, [facility] 6 09:33:55 Sprain of foot 40680304 Completed 201102/19/2014 RECORDED 03/19/20 12 8:24AM BY LETTY LUNA ON/ADDEN DUM [facility] 6 09:[facility]:55 Sprains and strains of joints and adjacent muscles Completed 201102/20/2014 RECORDED 04/23/20 12 9:33AM BY DIXON HOLLAND MA, LETTY ON/ADDEN DUM BLAYNE Hurtado, [facility] 6 09:33:55 Bicipita l tenosyno vitis 72061401 Completed 201202/20/2014 IMPRESSI ON: AT ATTACHME NT AT ELBOW. CONTINUE ALEVE; RECORDED 10/24/19 13 10:00AM BY HIEN MANNING MA, LETTY ON/ADDEN DUM BLAYNE Hurtado, [facility] 6 09:33:55 Chest pain 05159822 Completed 201102/20/2014 RECORDED 04/23/20 12 9:33AM BY DIXON HOLLAND MA, LETTY ON/ADDEN DUM [facility] 6 09:33:55 Closed fracture of lower end of radius AND ulna 10819795 Completed 200802/20/2014 RECORDED 05/20/20 09 8:20AM BY RYAN BUSTOS MD, LETTY ON/ADDEN DUM BLAYNE Hurtado, [facility] 6 09:33:55 Disorder of kidney and/or ureter 670420040 Completed 200802/20/2014 IMPRESSI ON: CREATINI NE 1.4 (11/2006) ; RECORDED 05/20/20 09 8:20AM BY RYAN BUSTOS MD, ANNOTJEANNIE ON/ADDEN DUM BLAYNE Hurtado, [facility] 6 09:33:55 Edema 367293396 Completed 200802/20/2014 RECORDED 05/20/20 09 7:44AM BY HIEN MANNING MA, ANNOTATI ON/ADDEN DUM Hien Nicole-M BLAYNE rico, [facility] 6 09:33:55 Influenz a vaccine needed [id number] 06 Completed 201102/20/2014 RECORDED 03/19/20 12 8:37AM BY NADYA CAMILO, OFFICE VISIT BLAYNE Hurtado, [facility] 6 09:33:55 Follow-u p encounte r Completed 201102/20/2014 RECORDED 03/19/20 12 8:24AM BY LETTY LUNA ON/ADDEN DUM Hien Rivera[facility] 09:[facility] Adult health examinat ion Completed 201102/20/2014 RECORDED 04/23/20 12 9:33AM BY DIXON HOLLAND MA, ANNOTATI ON/ADDEN DUM [facility] 6 09:[facility] General examinat ion of patient Completed 200702/20/2014 RECORDED 07/14/20 08 7:03AM BY LETTY UF ON/ADDEN DUM Hien Nicole-BLAYNE Humphrey, [facility] 6 09:33:55 Hypercho lesterol emia 37131230 Completed 201202/20/2014 RECORDED 11/26/19 13 1:46PM BY DIXON HOLLAND MA, ANNOTATI ON/ADDEN DUM Hien [facility] 09:[facility]:54 Hypersom donis 92976825 Completed 201102/20/2014 RECORDED 06/18/20 12 7:23AM BY LETTY BERNAL ON/ADDBLAYNE Neri, [facility] 6 09:33:55 Epidermo id cyst of skin 152443995 Completed 201102/20/2014 RECORDED 03/19/20 12 8:24AM BY LETTY LUNA ON/ADDEN DUM BLAYNE Hurtado, [facility] 6 09:33:55 Renewal of prescrip tion Completed 201202/20/2014 RECORDED 11/26/19 13 1:46PM BY DIXON HOLLAND MA, LETTY ON/ADDEN DUM BLAYNE Hurtado, [facility] 6 09:33:55 Administ ration of bacteria l and viral vaccine Completed 200702/20/2014 RECORDED 03/31/20 08 7:18AM BY HIEN MANNING MA, OFFICE VISIT BLAYNE Hurtado, [facility] 6 09:33:55 Hyperhid rosis 033570436 Completed 201102/20/2014 RECORDED 04/23/20 12 9:33AM BY DIXON HOLLAND MA, LETTY ON/ADDEN DUM [facility] 09:[facility] Tobacco user [id number] Completed 201102/20/2014 RECORDED 03/19/20 12 8:24AM BY LETTY LUNA ON/ADDEN DUM BLAYNE Hurtado, [facility] 6 09:33:55 Sprain of foot 82077669 Completed 201102/20/2014 RECORDED 03/19/20 12 8:24AM BY LETTY LUNA ON/ADDEN DUM BLAYNE Hurtado, [facility] 6 09:33:55 Body mass index 30+ - obesity 009830358 Active BLAYNE Hurtado, [facility] 6 09:33:55 Low back pain 793879610 Active Hien rico BLAYNE nagel, [facility] 6 09:33:55 Divertic ulitis of colon 854781248 Active Hien rico BLAYNE nagel, [facility] 6 09:33:55 Fatigue 74788357 Active Hienlynette rico BLAYNE nagel, [facility] 6 09:33:55 Hypergly cemia 83262133 Active Hien rico BLAYNE shona, [facility] 6 09:33:55 Sprains and strains of joints and adjacent muscles Completed 201101/27/2014 RECORDED 04/23/20 12 9:33AM BY DIXON HOLLAND MA, ANNOTATI ON/ADDEN DUM Hien rico BLAYNE shona, [facility] 6 09:33:55 Acute prostati tis 02954009 Active 2013 IMPRESSI ON: WE DISCUSSE D [...] HIEN MANNING MA, OFFICE VISIT BLAYNE Hurtado, [facility] 6 09:33:55 Bicipita l nonaosyno vitis 24539458 Completed 201201/27/2014 IMPRESSI ON: AT ATTACHME NT AT ELBOW. CONTINUE ALEVE; RECORDED 10/24/19 13 10:00AM BY HIEN MANNING MA, ANNOTATI ON/ADDEN DUM BLAYNE Hurtado, [facility] 6 09:33:55 Biliuria 80013021 Active 2013 BLAYNE Hurtado, [facility] 6 09:33:55 Carpal tunnel syndrome 98318118 Completed 200801/27/2014 RECORDED 05/20/20 09 8:20AM BY RYAN BUSTOS MD, ANNOTATI ON/ADDEN DUM BLAYNE Hurtado, [facility] 6 09:33:55 Chest pain 79943745 Completed 201101/27/2014 RECORDED 04/23/20 12 9:33AM BY DIXON HOLLAND MA, ANNOTATI ON/ADDEN DUM BLAYNE Hurtado, [facility] 6 09:33:55 Chronic tension- type headache 462116004 Active 2013 BLAYNE Hurtado, [facility] 6 09:33:55 Closed fracture of lower end of radius AND ulna 81642203 Completed 200801/27/2014 RECORDED 05/20/20 09 8:20AM BY RYAN BUSTOS MD, ANNOTATI ON/ADDEN DUM BLAYNE Hurtado, [facility] 6 09:33:55 Depressi ve disorder 45331000 Active 2013 BLAYNE Hurtado, [facility] 6 09:33:55 Disorder of kidney and/or ureter 119335983 Completed 200801/27/2014 IMPRESSI ON: CREATINI NE 1.4 (11/2006) ; RECORDED 05/20/20 09 8:20AM BY RYAN BUSTOS MD, ANNOTATI ON/ADDEN DUM BLAYNE Hurtado, [facility] 6 09:33:55 Edema 519985486 Completed 200801/27/2014 RECORDED 05/20/20 09 7:44AM BY HIEN MANNING MA, LETTY ON/ADDEN DUM BLAYNE Hurtado, [facility] 6 09:33:55 Gastroes ophageal reflux disease 888796885 Active 2013 BLAYNE Hurtado, [facility] 6 09:33:55 Malaise and fatigue 173184896 Active 2013 BLAYNE Hurtado, [facility] 6 09:33:55 Influenz a vaccine needed 85382493484 06 Completed 201101/27/2014 RECORDED 03/19/20 12 8:37AM BY NADYA CAMILO, OFFICE VISIT BLAYNE Hurtado, [facility] 6 09:33:55 Follow-u p encounte r Completed 201101/27/2014 RECORDED 03/19/20 12 8:24AM BY LETTY LUNA ON/ADDEN DUM [facility] 09:[facility] Adult health examinat ion Completed 201101/27/2014 RECORDED 04/23/20 12 9:33AM BY DIXON HOLLAND MA, ANNOTATI ON/ADDEN DUM BLAYNE Hurtado, [facility] 6 09:33:55 General examinat ion of patient Completed 200701/27/2014 RECORDED 07/14/20 08 7:03AM BY LETTY FU ON/ADDEN DUM BLAYNE Hurtado, [facility] 6 09:33:55 Hypercho lesterol emia 46790401 Completed 201201/27/2014 RECORDED 11/26/19 13 1:46PM BY DIXON HOLLAND MA, ANNOTATI ON/ADDEN DUM BLAYNE Hurtado, [facility] 6 09:33:54 Hyperlip idemia 06270930 Active 2013 BLAYNE Hurtado, [facility] 6 09:33:54 Hypersom donis 24425649 Completed 201101/27/2014 RECORDED 06/18/20 12 7:23AM BY LETTY BERNAL ON/ADDEN DUM BLAYNE Hurtado, [facility] 6 09:33:55 Essentia l hyperten duglas 58025061 Active 2013 BLAYNE Hurtado, [facility] 6 09:33:55 Epidermo id cyst of skin 919530397 Completed 201101/27/2014 RECORDED 03/19/20 12 8:24AM BY LETTY LUNA ON/ADDEN DUM BLAYNE Hurtado, [facility] 6 09:33:55 Insomnia 402744890 Active 2013 BLAYNE Hurtado, [facility] 6 09:33:55 Renewal of prescrip tion Completed 201201/27/2014 RECORDED 11/26/19 13 1:46PM BY DIXON HOLLAND MA, LETTY ON/ADDEN DUM BLAYNE Hurtado, [facility] 6 09:33:55 Fibromyo sitis 85691252 Active 2013 BLAYNE Hurtado, [facility] 6 09:33:55 Administ ration of bacteria l and viral vaccine Completed 200701/27/2014 RECORDED 03/31/20 08 7:18AM BY HIEN MANNING MA, OFFICE VISIT BLAYNE Hurtado, [facility] 6 09:33:55 Hyperhid rosis 617167392 Completed 201101/27/2014 RECORDED 04/23/20 12 9:33AM BY DIXON HOLLAND MA, ANNOTATI ON/ADDEN DUM BLAYNE Hurtado, [facility] 6 09:33:55 Obesity 311702530 Active 2013 STORY: RECENT INCREASE IN HIS WEIGHT.; RECORDED 01/10/20 14 1:21PM BY HIEN MANNING MA, OFFICE VISIT BLAYNE Hurtado, [facility] 6 09:33:55 Tobacco user [id number] Completed 201101/27/2014 RECORDED 03/19/20 12 8:24AM BY LETTY LUNA ON/ADDEN DUM BLAYNE Hurtado, [facility] 6 09:33:55 History of clinical finding in subject 990845334 Active 2011 BLAYNE Hurtado, [facility] 6 09:33:55 Proteinu brandon 78537092 Active 2013 BLAYNE Hurtado, [facility] 6 09:33:55 Psychose xual dysfunct ion associat ed with inhibite d libido 400484115 Active 2013 BLAYNE Hurtado, [facility] 6 09:33:55 Sprain of foot 14281014 Completed 201101/27/2014 RECORDED 03/19/20 12 8:24AM BY LETTY LUNA ON/ADDEN DUM BLAYNE Hurtado, [facility] 6 09:33:55 Tobacco dependen ce syndrome 78293466 Active 2013 Hien rico MA null, [facility] 6 09:33:55 Problem Notes None recorded. Procedures Surgical History Date Name Laterality Status Provider Name and Address Organization Details Recorded Time 6 Colonoscopy completed Analisa Degutis [facility] 12/06/2015 16:58:34 3 Vasectomy completed [facility] 05/12/2014 08:16:32 5 [facility] [facility] 05/12/2014 08:16:32 Imaging Results Imaging Date Name Status LastModified by Organization Details LastModified Time 10/30/2014 imaging/diagnostic result completed trios Information not available 08/25/2015 09:50:37 08/25/2015 electrocardiogram completed trios Informa tion not available 08/25/2015 09:41:39 Procedure Notes None recorded. Medical Equipment None Reported. Allergies Allergen ID Allergen Name Allergen Category Reaction Reaction Severity Criticality Documentation Date Start Date Code Code System Note Provider Name and Address Organization Details Recorded Time 1997 aspirin medicatio n nausea Not available Not available 01/27/2014 1191 RxNorm DANIS Bah [address] [address], [place], [address] [place] [address] 5 16:39:27 Medications Name Sig Start Date [...] Updated DateTime 4 97 % 97 % 58809.6 5874 g 98.1 [degF] 64 /min 31.2 kg/m2 171.45 cm 115 mm[Hg] 74 mm[Hg] Dixon Rockt [facility] 4 08:21:21 Date Recorded Oxygen saturation Oxygen saturation in Arterial blood by Pulse oximetry Body weight Heart rate Body mass index (BMI) Body height Body temperature Systolic blood pressure Diastolic blood pressure Provider Name and Address Organization Details Last Updated DateTime 5 96 % 96 % 621027. 83775 g 80 /min 36.1 kg/m2 171.45 cm 97.9 [degF] 110 mm[Hg] 70 mm[Hg] Elsa Conrad MA [facility] 5 09:52:32 Date Recorded Body weight Oxygen saturation Oxygen saturation in Arterial blood by Pulse oximetry Body height Body mass index (BMI) Body temperature Heart rate Systolic blood pressure Diastolic blood pressure Provider Name and Address Organization Details Last Updated DateTime 5 169926. 42238 g 96 % 96 % 171.45 cm 36.7 kg/m2 96.3 [degF] 98 /min 117 mm[Hg] 80 mm[Hg] Elsa Conrad MA [facility] 5 16:28:18 Date Recorded Body height Body mass index (BMI) Body weight Oxygen saturation Oxygen saturation in Arterial blood by Pulse oximetry Heart rate Body temperature Systolic blood pressure Diastolic blood pressure Provider Name and Address Organization Details Last Updated DateTime 6 171.45 cm 36.3 kg/m2 812751. 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 Information not available 08/25/2015 Have There Been [...] History Condition Response Gout N Other N Blood Diseases N Kidney Stones N Hyperthyroidism N Breast Cancer N Depression [...] Recorded Time Tdap 8 completed Not Available [facility] 01/27/2014 13:31:33 Influenza, split virus, trivalent, preservative 2 completed Not Available [facility] 01/27/2014 13:31:33 Influenza, split virus, trivalent, PF 4 completed Not Available [facility] 08/02/2019 02:21:57 Past Encounters Encounter ID Performer Location Encounter Start Date Encounter Closed Date Diagnosis/Indication Diagnosis SNOMED-CT Code Diagnosis ICD10 Code Diagnosis Note [id number] autoEComm erce [address] [facility] [place] [address] 11/14/2006 00:00:00 [id number] autoEComm erce [address] [facility] [place] [address] 03/31/2008 00:00:00 [id number] [place] [address] 07/14/2008 00:00:00 [id number] [address] [place] [address] 09/23/2008 00:00:00 [id number] [address] [place] [address] 10/09/2008 00:00:00 [id number] [address] [place] [address] 10/29/2008 00:00:00 [id number] autoEComm erce [address] [facility] [address] [place] [address] 12/24/2008 00:00:00 [id number] autoEComm erce [address] [facility] [place] [address] 02/01/2009 00:00:00 [id number] autoEComm erce [address] [facility] [place] [address] 05/20/2009 00:00:00 [id number] autoEComm erce [address] [facility] [place] [address] 08/26/2009 00:00:00 [id number] autoEComm erce [address] [facility] [place] [address] 09/30/2009 00:00:00 [id number] autoEComm erce [address] [facility] [place] [address] 12/22/2009 00:00:00 [id number] autoEComm erce [address] [facility] [place] [address] 01/24/2010 00:00:00 [id number] autoEComm erce [address] [facility] [address] [place] [address] 06/07/2010 00:00:00 [id number] autoEComm erce [address] [facility] [place] [address] 08/30/2010 00:00:00 [id number] autoEComm erce [address] [facility] [place] [address] 11/21/2011 00:00:00 [id number] autoEComm erce [address] [facility] [address] [place] [address] 03/19/2012 00:00:00 [id number] autoEComm erce [address] [facility] [place] [address] 04/23/2012 00:00:00 [id number] autoEComm erce [address] [facility] [place] [address] 06/18/2012 00:00:00 [id number] autoEComm erce [address] [facility] [place] [address] 08/19/2012 00:00:00 [id number] autoEComm erce [address] [facility] [place] [address] 11/25/2012 00:00:00 [id number] autoEComm erce [address] [facility] [place] [address] 01/09/2014 00:00:00 [id number] Main Office [address] [address] [place], [place] [address] 05/12/2014 08:03:54 05/12/2014 09:32:08 Adult health examination 968288850 Needs infl uenza immunization 109150878 Body mass index 30+ - obesity 506554385 Tobacco de pendence syndrome 86019862 Essential hypertension 11439679 Low back pain 502720252 Hyperlipidemia 47723893 [id number] Ryan Bustos MD Main Office [address] [address] [place], [place] [address] 11/02/2014 09:42:42 11/02/2014 10:19:22 Diverticulitis of colon 824800677 symptomati c improvemen t on abx, complete course of antibiotic [id number] Ryan Bustos MD Main Office [address] [address] [place], [place] [address] 05/28/2015 16:19:08 05/28/2015 16:57:55 Diverticulitis of colon 698764891 K57.32 Patient w/ hx diverticul itis via [...] plan. Screening for malignant neoplasm of colon 046796989 Z12.11 [id number] Ryan Bustos MD Main Office [address] [address] 08/25/2015 09:09:08 08/25/2015 10:14:52 Essential hypertension 79204672 I10 Screening for malignant neoplasm of colon 841500231 Z12.11 Hyperglycemia 65415966 R 73.9 Hyperlipidemia 19292051 E78.5 Malaise and fatigue 2717 83536 R53.83 Tobacco de pendence syndrome 20771849 F17.290 Gastroesop hageal reflux disease 351640016 K21.9 Body mass index 30+ - obesity 622233464 Z68.36 Health Concerns Section Related Observation LastModified by Organization Detai ls LastModified Time None Recorded Concern Status LastModified by Organization Details LastModified Time None Recorded Advance Directives Directive N: Payers Encounter Date Sequence Insurance Name Policy Number Policy Salazar Covered Member ID Salazar Member ID Guarantor Name 05/12/2014 1 [facility] [id number] Ross Mosley oks [id number] Ross Desai ks 11/02/2014 [facility]PPO[facility] [id number] Ross Mosley oks [id number] Ross Desai ks 05/28/2015 1 [facility] (PPO[facility] [id number] Ross Chatman-Praful oks [id number] Ross Desai ks 08/25/2015 1 [facility] (O) [id number] [address] Mosley [facility] [id number] Ross Desai ks Notes Date Note Type Note Provider Name and Address Organization Details Recorded Time 11/02/2014 text/html H/o LLQ abdomina l pain started 3 days ago while visiting family in [place], progressively worsened within 2 hours. He went [...] tolerating PO fluids. Ryan Bustos MD [address], [address], [facility] 11/02/2014 12:34:39 08/25/2015 text/html Notes symptoms o [...] of distressing dreams. Ryan Bustos MD [address], [address], [facility] 08/25/2015 22:00:19 08/25/2015 text/html HeadacheReported bypatient.Notes:Notes posterior [...] concerns about weight gain. Ryan Bustos MD [address] [address], [place], [address], [facility] 08/25/2015 22:00:19
--- OUTSIDE RECORDS SUMMARY | 2024-10-02 19:42 | XMS_ITS | Encounter Summary ---
Author Organization [facility] Address [address] [place] [address] Care Team Providers Care Chief Credit Officer Name Role Phone Orlin Chambers MD Primary Care Provider [phone] Encounter Details Date Type Department Care Team (Late st Contact Info) Description 11/01/2020 Scanned Document [facility] ORTHO SURGERY SCAN Orthopedic Surgery, Scan Social [...] on filedocumented in this encounter Care Teams Chief Credit Officer Relationship Specialty Start Date End Date Orlin Chambers MD [address] [address] PCP - General Family Medicine 01/29/19 08/16/23 Juma Harrington [facility] Pulmonary Medicine 11/23/21 documented as of this encounter
== END 2024-10-02 19:35 | disposition home or self-care (01) ==
LOC: HO.MRI 19:34
PROVIDERS: PCP Physician Assistant; Visit Provider Physician Assistant
DX: R41.3 Other amnesia (principal); Z80.8 Family history of malignant neoplasm of other organs or systems
CPT/HCPCS: 70551

== ENCOUNTER 2024-10-17 14:33 | Outpatient (AMB) | payer OTHER, SELFPAY ==
--- NOTE | 2024-10-17 14:39 | HO.NEPHOV_ITS ---
Vital Signs 10/17/24 14:41 Height 5 ft 7 in Weight 244 lb 2 oz BMI 38.2 BP 100/70 Blood Pressure Location Rt brachial Position Sitting Pulse 106 H Pulse Source Pulse Oximeter Pulse Oximetry (%) 97 Oxygen Delivery Method Room Air Intake Visit Reasons: Abnormal finding of blood chemistry, unspecified Furniture Manager Required: No Accompanied by: Self / Same As Patient Allergies No Known Allergies [No Known Allergies*] Allergy (Verified 10/17/24 14:41) HPI Comments Details: I had the privilege of seeing Dejuan who is a 59-year-old male for CKD,hypertension and proteinuria. He has high BMI as well as ТАТЬЯНА. He had higher HbA1c which has improved. He is on GLP 1 agonist as well as metformin. His serum creatinine had been fluctuant. His BUN also has been high. He is on losartan and his BP has been at goal. He denies retinopathy, CAD, CVA, CHF, PAD, carotid stenosis or GARTH. His brother has CKD 3 and is in [place]. He does not take excessive NSAID's. He has no new bone or back pain, epistaxis, recurrent sinusitis, sore throat, skin rashes or infections. He denies using drugs and does not have any hepatitis or HIV. He maintains good hydration. He has no H/O cancer but has H/O pulmonary nodules. He denies any prostatic issues. His renal USS is pending. His serum creatinine had gone up to 1.49 [facility] Medical History (Updated 10/17/24 @ 15:11 by Dexter Serna MD) Lower extremity edema Dyspnea ТАТЬЯНА (obstructive sleep apnea) Pulmonary nodules Obese Personal history of nicotine dependence Erectile dysfunction HLD (hyperlipidemia) Type 2 diabetes mellitus HTN (hypertension) Surgical History History of repair of right rotator cuff History of left knee surgery History of colonoscopy Family History Mother Lung cancer Father Diabetes Bladder cancer Heart attack Brother Hypertension Diabetes Maternal Grandmother Hypertension Arthritis Maternal Aunt Family history of malignant neoplasm of female breast Social History Household Members: Family Housing: House Do you presently have visiting nurse or other home services: No Alcohol intake: never Patient Tobacco Use Status: Former Tobacco user Years Smoked: (onset 16yo, 1.5ppd x 35yrs, 50pyh, quit 2016) e-Cigarette/Vaping Use: Never Used service: No Current occupational status: employed Cognitive needs: No Hearing needs: No Vision needs: Yes Review of Systems Const All systems reviewed & are unremarkable except as noted in HPI and below Physical Exam Vital Signs: Last Vital Signs Pulse 106 H 10/17/24 14:41 BP 100/70 10/17/24 14:41 Pulse Ox 97 10/17/24 14:41 Oxygen Delivery Method Room Air 10/17/24 14:41 BMI result Body Mass Index 38.2 Const General: comfortable and no acute distress Orientation/consciousness: patient oriented x3 HEENT Head: Yes normocephalic Mouth: Normal oral and palatal mucosa present Eyes EOM: EOMs intact bilaterally Neck Neck: Yes supple Resp Auscultation: clear to auscultation bilaterally Cardio Jugular venous distension: no JVD Rate: regular rate GI Palpation (GI): Soft to palpation Auscultation: normal bowel sounds General: Yes no CVA tenderness Back/Spine/Pelvis Back: no CVA tenderness Skin General skin exam: no rashes or lesions noted Neuro General: patient oriented x3 and moves all extremities Extrem General: Yes no pedal edema Results Reviewed Nephrology Results: Sodium 140 mmol/L (135-145) 09/12/24 Potassium 3.7 mmol/L (3.3-5.1) 09/12/24 Chloride 105 mmol/L (96-108) 09/12/24 Carbon Dioxide 25 mmol/L (22-29) 09/12/24 BUN 33 mg/dL (9-16) H 09/12/24 Creatinine 1.19 mg/dL (0.5-1.4) 09/12/24 Calcium 10.1 mg/dL (8.4-10.2) 09/12/24 Assessment & Plan Assessment & Plan (1) CKD stage 3a, GFR 45-59 ml/min: Code(s): N18.31 - Chronic kidney disease, stage 3a Category: Medical (2) HTN (hypertension): Code(s): I10 - Essential (primary) hypertension Category: Medical Qualifiers: Hypertension type: primary hypertension Qualified Code(s): I10 - Essential (primary) hypertension (3) Microalbuminuria: Code(s): R80.9 - Proteinuria, unspecified Category: Medical Plan 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 His brother has CKD 3. His renal functions are currently stable. His BP is at goal. He has proteinuria. He is on ARB. He does not take excess NSAID's and maintains good hydration. His renal USS is pending. I ordered further work up including 24 hour urine for cr clearance. I shall consider switching his metformin to Jardiance later. I did not make any medication changes today. Answered all questions. F/U given Orders: Orders Creatinine Clearance Urine 24U 3 Weeks N18.31 - Chronic kidney disease, stage 3a Creatinine 3 Weeks N18.31 - Chronic kidney disease, stage 3a Vitamin D 25-OH Total 3 Weeks N18.31 - Chronic kidney disease, stage 3a Blood Urea Nitrogen 3 Weeks N18.31 - Chronic kidney disease, stage 3a Electrolytes 3 Weeks N18.31 - Chronic kidney disease, stage 3a Parathyroid Hormone Intact 3 Weeks N18.31 - Chronic kidney disease, stage 3a Phosphorus 3 Weeks N18.31 - Chronic kidney disease, stage 3a Coding Level of Care Code New Pt Level 4 (22368) Diagnoses CKD stage 3a, GFR 45-59 ml/min N18.31 Primary hypertension I10 Hypertension type: primary hypertension Microalbuminuria R80.9
[2024-10-17 14:41] VITALS: BP 100/70; PULSE 106; O2SAT 97; BMI 38.2
--- OUTSIDE RECORDS SUMMARY | 2024-10-17 16:05 | XMS_ITS | Encounter Summary ---
Author Organization [facility] Address [address] [place] [address] Care Team Providers Care Manager Renewable Energy Name Role Phone Orlin Chambers MD Primary Care Provider [phone] Reason for Visit * Reason Onset Date Comments Medication Refill 04/10/2023 Encounter Details Date Type Department Care Team (Late st Contact Info) Description 04/10/2023 Refill [facility] [address] [place] [address] 203 [place] [address] Orlin Chambers MD 100 [facility] [address] [place], [place] [id number] Insomnia, unspecified type Social History Tobacco Use [...] documented in this encounter Care Teams Manager Renewable Energy Relationship Specialty Start Date End Date Orlin Chambers MD 100 [place] [address] PCP - General Family Medicine 01/29/19 08/16/23 Juma Harrington [facility] Pulmonary Medicine 11/23/21 documented as of this encounter
--- OUTSIDE RECORDS SUMMARY | 2024-10-17 16:05 | XMS_ITS | Encounter Summary ---
Author Organization [facility] Address [address] [place] [address] Care Team Providers Care Quenching Machine Operator Name Role Phone Orlin Chambers MD Primary Care Provider Encounter Details Date Type Department Care Team (Late st Contact Info) Description 08/29/2022 Scanned Document [facility] ORTHO SURGERY SCAN [place] [address] [address] Social History Tobacco Use Types Packs/Day Years [...] on filedocumented in this encounter Care Teams Quenching Machine Operator Relationship Specialty Start Date End Date Orlin Chambers MD [address] [place] [address] 203 [place] [address] PCP - General Family Medicine 01/29/19 08/16/23 Juma Harrington [facility] Pulmonary Medicine 11/23/21 documented as of this encounter
--- OUTSIDE RECORDS SUMMARY | 2024-10-17 16:05 | XMS_ITS | Encounter Summary ---
Author Organization [facility] Address [address] [place] [address] Care Team Providers Care Professor Of History Name Role Phone Orlin Chambers MD Primary Care Provider [phone] Reason for Visit * Reason Comments Medication Refill Encounter Details Date Type Department Care Team (Late st Contact Info) Description 04/10/2023 Refill [facility] [address] [address] Orlin Chambers MD 100 [facility] [address] [place] [address] Insomnia, unspecified type Social History Tobacco Use [...] type documented in this encounter Care Teams Professor Of History Relationship Specialty Start Date End Date Orlin Chambers MD 100 [place] [address] PCP - General Family Medicine 01/29/19 08/16/23 Juma Harrington [facility] Pulmonary Medicine 11/23/21 documented as of this encounter
--- OUTSIDE RECORDS SUMMARY | 2024-10-17 16:05 | XMS_ITS | Encounter Summary ---
Author Organization [facility] Address [address] [place] [address] Care Team Providers Care Gravity Prospecting Observer Name Role Phone Orlni Chambers MD Primary Care Provider [phone] Encounter Details Date Type Department Care Team (Late st Contact Info) Description 02/27/2023 Scanned Document [facility] EMERGENCY MED SCAN Emergency Medicine, [...] on filedocumented in this encounter Care Teams Gravity Prospecting Observer Relationship Specialty Start Date End Date Oriln Chambers MD [address] [place] [address] PCP - General Family Medicine 01/29/19 08/16/23 Juma Harrington [facility] Pulmonary Medicine 11/23/21 documented as of this encounter
--- OUTSIDE RECORDS SUMMARY | 2024-10-17 16:05 | XMS_ITS | Encounter Summary ---
Author Organization [facility] Address [address] [place] [address] Care Team Providers Care Gum Mixer Name Role Phone Orlin Chambers MD Primary Care Provider [phone] Encounter Details Date Type Department Care Team (Late st Contact Info) Description 10/06/2022 Scanned Document [facility] ORTHO SURGERY SCAN [place], [facility] [address] [address] Social History Tobacco Use Types Packs/Day Years [...] on filedocumented in this encounter Care Teams Gum Mixer Relationship Specialty Start Date End Date Orlin Chambers MD [address] [place] [address] 203 [place] [address] PCP - General Family Medicine 01/29/19 08/16/23 Juma Harrington [facility] Pulmonary Medicine 11/23/21 documented as of this encounter
--- OUTSIDE RECORDS SUMMARY | 2024-10-17 16:05 | XMS_ITS | Encounter Summary ---
Author Organization [facility] Address [address] [place] [address] Care Team Providers Care Product Manager Name Role Phone Orlin Chambers MD Primary Care Provider [phone] Reason for Visit * Reason Onset Date Comments Medication Refill 04/12/2023 Encounter Details Date Type Department Care Team (Late st Contact Info) Description 04/12/2023 Refill [facility] [address] [place] [address] 203 [place] [address] Orlin Chambers MD 100 [facility] [address] [place], [place] [phone] Insomnia, unspecified type Social History Tobacco Use [...] type documented in this encounter Care Teams Product Manager Relationship Specialty Start Date End Date Orlin Chambers MD 100 [place] [address] PCP - General Family Medicine 01/29/19 08/16/23 Juma Harrington [facility] Pulmonary Medicine 11/23/21 documented as of this encounter
--- OUTSIDE RECORDS SUMMARY | 2024-10-17 16:05 | XMS_ITS | Encounter Summary ---
Author Organization [facility] Address [address] [place] [address] Care Team Providers Care Nursing Clinical Director Name Role Phone Orlin Chambers MD Primary Care Provider [phone] Encounter Details Date Type Department Care Team (Late st Contact Info) Description 02/27/2023 Scanned Document [facility] EMERGENCY MED SCAN Emergency Medicine, Scan [...] on filedocumented in this encounter Care Teams Nursing Clinical Director Relationship Specialty Start Date End Date Orlin Chambers MD [address] [place] [address] PCP - General Family Medicine 01/29/19 08/16/23 Juma Harrington [facility] Pulmonary Medicine 11/23/21 documented as of this encounter
--- OUTSIDE RECORDS SUMMARY | 2024-10-17 16:05 | XMS_ITS | Encounter Summary ---
Author Organization [facility] Address [address] [place] [address] Care Team Providers Care Privacy Compliance Manager Name Role Phone Orlin Chambers MD Primary Care Provider [phone] Reason for Visit * Reason Comments Medication Refill Encounter Details Date Type Department Care Team (Late st Contact Info) Description 04/12/2023 Refill [facility] [address] [address] Orlin Chambers MD 100 [facility] [address] 203 [place] [address] Insomnia, unspecified type Social History Tobacco Use [...] type documented in this encounter Care Teams Privacy Compliance Manager Relationship Specialty Start Date End Date Orlin Chambers MD 100 [place] [address] PCP - General Family Medicine 01/29/19 08/16/23 Juma Harrington [facility] Pulmonary Medicine 11/23/21 documented as of this encounter
--- OUTSIDE RECORDS SUMMARY | 2024-10-17 16:06 | XMS_ITS | Encounter Summary ---
Author Organization [facility] Address [address] [place] [address] Care Team Providers Care Legal Paraprofessional Name Role Phone Orlin Chambers MD Primary Care Provider Encounter Details Date Type Department Care Team (Late st Contact Info) Description 09/05/2022 Scanned Document [facility] [place] 10 100 [facility] [address] [place] [address] Orlin Chambers MD 100 [facility] [address] [place] [address] Social History Tobacco Use Types Packs/Day Years [...] on filedocumented in this encounter Care Teams Legal Paraprofessional Relationship Specialty Start Date End Date Orlin Chambers MD [address] [place] [address] [address] PCP - General Family Medicine 01/29/19 08/16/23 Juma [facility] Pulmonary Medicine 11/23/21 documented as of this encounter
--- OUTSIDE RECORDS SUMMARY | 2024-10-17 16:06 | XMS_ITS | Data Portability ---
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 Name Role Phone RYAN BUSTOS Primary Care [...] BMP, serum or plasm a 2013 014 [facility] Not available 4 19:52:00 Referral gastr marjorie fong ist refer ral 2015 016 jourdan [facility], [address] [place], [address], 6 11:02:[address]/di etiti an refer ral 2015 016 [facility] Not available 6 21:59:[address]/di etiti an refer ral 2013 014 [facility] Not available 4 19:52:00 Procedures colon oscop y scree farhana (PROC ) - Due for scree nign colon oscop y and has had diver tic x 2 in last 6 month s. 2014 [facility] [address] [place] [address], [address], 6 11:22:40 Surgeries None recor ded. Imaging elect arvin lópez am 2015 016 [facility] In-Office Order, Internal Use Only DO Not Attach Compendium DO Not Attach Compendium, Do Not Delete/merge, [id number] 6 21:59:57 Medication Orders bupro pion HCl XL 300 mg 24 hr table t, exten ded relea se 2015 016 [id number], [address] [facility], [place], [address], 6 21:59:58 omepr azole 20 mg table t,bryan ny relea se 2015 016 [id number], [address] [place], [address], 6 21:59:57 simva stati n 80 mg table t 2015 016 [id number], [address] [place], [address], 6 21:59:57 chlor thali done 25 mg table t 2015 016 [id number], [address] [place], [address], 6 21:59:57 Cipro 500 mg table t 2014 015 [email or web address] os [id number], [address] [place], [address], 6 09:13:40 metro nidaz ole 500 mg table t 2014 015 [email or web address] os [id number], [address] [place], [address], 6 09:13:40 Patient Targets Encounter Date Encounter Id Patient Goals Patient Target Last Modified By Organization Details Last Modified Time 05/12/2014 [id number] Ongoing of Microalbumin/Cr eatinine Ratio yearly Not [...] Bring meter and/or readings to your appointments [facility] Not available 05/14/2014 19:51:49 08/25/2015 [id number] 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 [facility] Not available 08/25/2015 21:59:58 Patient Instructions Encounter Date Encounter Id Patient Instructions Last Modified By Organization Details Last Modified Time 05/12/2014 [id number] deciding about u sing medicines to quit smoking p[facility] Not available 05/14/2014 19:52:00 Quitting Tobacco : [facility] available 05/14/2014 19:52:00 low back pain: exercises pheuth Not available 05/14/2014 19:52:00 exercise program : getting started pheuth Not available 05/14/2014 19:52:00 high blood press ure: care instructions [facility] Not available 05/14/2014 19:52:00 learning about h igh blood pressure [facility] Not available 05/14/2014 19:52:00 starting a weigh t loss plan: care instructions [facility] Not available 05/14/2014 19:52:00 Nutrition Referr al and Weight Management Follow-up Information [facility] Not available 05/14/2014 19:52:00 Medications were reviewed at this visit and reconciled. Changes in the active medications are reflected in the current medication list and discussed with patient (or caregiver) with instructions for follow up as needed. Printed medication list provided to the patient as part of the visit summary. [facility] Not available 05/14/2014 19:51:49 11/02/2014 [id number] diverticulitis: care instructions [email or web address] Not available 11/02/2014 10:30:33 learning about diverticulosis and diverticulitis Not available 11/02/2014 10:30:33 PT to FU with PC P in 1 month, beforehand if persistent of worsening pain, fever, vomiting, bloody/black stool.? ? ? [email or web address] Not available 11/02/2014 10:30:02 05/28/2015 [id number] Colon Cancer Screening [facility] Not available 05/31/2015 15:33:50 learning about c olon cancer [facility] Not available 05/29/2015 12:23:20 To call or retur n for worsening or concerns [email or web address] Not available 05/28/2015 16:41:03 Go to ER if worsening abdominal pain, fever or persistent vomiting. I have reviewed the note and agree with the assessment and plan of care. [facility] Not available 05/29/2015 12:23:21 08/25/2015 [id number] deciding about u sing medicines to quit smoking [facility] Not available 08/25/2015 21:59:57 Quitting Tobacco : Care Instructions [facility] Not available 08/25/2015 21:59:58 gastroesophageal reflux disease (GERD): care [facility] Not available 08/25/2015 21:59:57 learning about h igh blood sugar [facility] Not available 08/25/2015 21:59:57 fatigue: [facility] Not available 08/25/2015 21:59:57 Colon Cancer Screening [facility] Not available 08/25/2015 21:59:57 learning about c olon cancer [facility] Not available 08/25/2015 21:59:57 high blood press ure: care instructions [facility] Not available 08/25/2015 21:59:57 learning about h igh blood pressure [facility] Not available 08/25/2015 21:59:57 starting a weigh t loss plan: care instructions [facility] Not available 08/25/2015 21:59:57 Nutrition Referr al and Weight Management Follow-up Information [facility] Not available 08/25/2015 21:59:57 Continue to emi tor home blood pressures and bring to next appointment. [facility] Not available 08/25/2015 10:11:42 Medications were reviewed at this visit and reconciled. Changes in the active medications are reflected in the current medication list and discussed with patient (or caregiver) with instructions for follow up as needed. Printed medication list provided to the patient as part of the visit summary. 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 Body mass index 30+ - obesity Referring Physician: Ryan Bustos, Internal Medicine, Encounter Date: 05/12/2014 Referring Physician: Ryan dean, Internal Medicine, Encounter Date: 08/25/2015 Day Worker/dietitian Refer ral for Body mass index 30+ [...] DO Not Attach Compendium, Do Not Delete/merge, [id number] 08/25/2015 09:20:03 08/25/19 16 08/25/2015 elect rocar diogr am QRS Not Available In-Office Order Internal Use Only DO Not Attach Compendium DO Not Attach Compendium, Do Not Delete/merge, [id number] 08/25/2015 09:20:03 08/25/19 16 08/25/2015 elect rocar diogr am [place] Interval Not Available In-Off ice Order Internal Use Only DO Not Attach Compendium DO Not Attach Compendium, Do Not Delete/merge, [id number] 08/25/2015 09:20:03 08/25/19 16 08/25/2015 elect rocar diogr am QRS Duration Not Available In-Of fice Order Internal Use Only DO Not Attach Compendium DO Not Attach Compendium, Do Not Delete/merge, [id number] 08/25/2015 09:20:03 08/25/19 16 08/25/2015 elect rocar diogr am QT Interval Not Available In-Off ice Order Internal Use Only DO Not Attach Compendium DO Not Attach Compendium, Do Not Delete/merge, [id number] 08/25/2015 09:20:03 05/12/20 14 05/12/2014 lipid panel , serum cholesterol, total 154 mg/dL (<200) Not Available [facility] (Centralized Electronic Ordering - All Locations) Patient Can Go To The Location Of Their Choice, [id number] 05/25/2014 15:11:14 05/12/20 14 05/12/2014 lipid panel , serum triglyceride 118 mg/dL (<150) Not Available [facility] (Centralized Electronic Ordering - All Locations) Patient Can Go To The Location Of Their Choice, [id number] 05/25/2014 15:11:14 05/12/20 14 05/12/2014 lipid panel , serum HDL chol 45 mg/dL (>39) Not Available [facility] (Centralized Electronic Ordering - All Locations) Patient Can Go To The Location Of Their Choice, [id number] 05/25/2014 15:11:14 05/12/20 14 05/12/2014 lipid panel , serum LDL cholesterol, calculated 85 mg/dL (0-130 ) Not Available [facility] (Centralized Electronic Ordering - All Locations) Patient Can Go To The Location Of Their Choice, [id number] 05/25/2014 15:11:14 05/12/20 14 05/12/2014 lipid panel , serum non HDL cholesterol (calc) 109 mg/dL (<160) Not Available [facility] (Centralized Electronic Ordering - All Locations) Patient Can Go To The Location Of Their Choice, [id number] 05/25/2014 15:11:14 05/12/20 14 05/12/2014 BMP, serum or plasm a glucose 89 mg/dL (70-99 ) Not Available [facility] (Centralized Electronic Ordering - All Locations) Patient Can Go To The Location Of Their Choice, [id number] 05/25/2014 15:11:13 05/12/20 14 05/12/2014 BMP, serum or plasm a BUN 21 mg/dL (6-20) high Not Available [facility] (Centralized Electronic Ordering - All Locations) Patient Can Go To The Location Of Their Choice, [id number] 05/25/2014 15:11:13 05/12/20 14 05/12/2014 BMP, serum or plasm a creatinine 1.1 mg/dL (0.7-1 .2) Not Available [facility] (Centralized Electronic Ordering - All Locations) Patient Can Go To The Location Of Their Choice, [id number] 05/25/2014 15:11:13 05/12/20 14 05/12/2014 BMP, serum or plasm a sodium 140 mmol/ L (133-1 45) Not Available [facility] (Centralized Electronic Ordering - All Locations) Patient Can Go To The Location Of Their Choice, [id number] 05/25/2014 15:11:13 05/12/20 14 05/12/2014 BMP, serum or plasm a potassium 4.3 mmol/ L (3.6-5 .2) Not Available [facility] (Centralized Electronic Ordering - All Locations) Patient Can Go To The Location Of Their Choice, [id number] 05/25/2014 15:11:13 05/12/20 14 05/12/2014 BMP, serum or plasm a chloride 99 mmol/ L (98-10 7) Not Available [facility] (Centralized Electronic Ordering - All Locations) Patient Can Go To The Location Of Their Choice, [id number] 05/25/2014 15:11:13 05/12/20 14 05/12/2014 BMP, serum or plasm a bicarbonate 30 mmol/ L (22-29 ) high Not Available [facility] (Centralized Electronic Ordering - All Locations) Patient Can Go To The Location Of Their Choice, [id number] 05/25/2014 15:11:13 05/12/20 14 05/12/2014 BMP, serum or plasm a anion gap 11 (4-17) Not Available [facility] (Centralized Electronic Ordering - All Locations) Patient Can Go To The Location Of Their Choice, [id number] 05/25/2014 15:11:13 05/12/20 14 05/12/2014 BMP, serum or plasm a calcium 9.9 mg/dL (8.6-1 0.5) Not Available [facility] (Centralized Electronic Ordering - All Locations) Patient Can Go To The Location Of Their Choice, [id number] 05/25/2014 15:11:13 05/12/20 14 05/12/2014 BMP, serum [...] Go To The Location Of Their Choice, [id number] 05/25/2014 15:11:13 05/12/20 14 05/12/2014 BMP, serum [...] Go To The Location Of Their Choice, [id number] 05/28/2015 19:59:07 05/28/2005/28/2015 CBC w/ auto diff [...] resul t No observ ation record ed. [facility] Not Available 2015 09:50:37 08/25/19 16 carol lópez am No observ ation record ed. [facility] Not Available 2015 09:41:39 Result Notes None recorded. Problems Name Problem SNOMED Code Status Onset Date Resolution Date Notes Provider Name and Address Organization Details Recorded Time Sprains and strains of joints and adjacent muscles Completed 201102/19/2014 RECORDED 04/23/20 12 9:33AM BY DIXON HOLLAND MA, ANNOTATI ON/ADDEN DUM BLAYNE Hurtado, [facility] 6 09:33:55 Bicipita l tenosyno vitis 69156609 Completed 201202/19/2014 IMPRESSI ON: AT ATTACHME NT AT ELBOW. CONTINUE ALEVE; RECORDED 10/24/19 13 10:00AM BY HIEN MANNING MA, ANNOTATI ON/ADDEN DUM BLAYNE Hurtado, [facility] 6 09:33:55 Carpal tunnel syndrome 45871571 Active 2013 BLAYNE Hurtado, [facility] 6 09:33:55 Chest pain 51523991 Completed 201102/19/2014 RECORDED 04/23/20 12 9:33AM BY DIXON HOLLAND MA, ANNOTATI ON/ADDEN DUM BLAYNE Hurtado, [facility] 6 09:33:55 Closed fracture of lower end of radius AND ulna 70541797 Completed 200802/19/2014 RECORDED 05/20/20 09 8:20AM BY RYAN BUSTOS MD, ANNOTATI ON/ADDEN DUM BLAYNE Hurtado, [facility] 6 09:33:55 Disorder of kidney and/or ureter 999234922 Completed 200802/19/2014 IMPRESSI ON: CREATINI NE 1.4 (11/2006) ; RECORDED 05/20/20 09 8:20AM BY RYAN BUSTOS MD, ANNOTJEANNIE ON/ADDEN DUM BLAYNE Hurtado, [facility] 6 09:33:55 Edema 716088963 Completed 200802/19/2014 RECORDED 05/20/20 09 7:44AM BY HIEN MANNING MA, ANNOTATI ON/ADDEN DUM BLAYNE Hurtado, [facility] 6 09:33:55 Influenz a vaccine needed [id number] 06 Completed 201102/19/2014 RECORDED 03/19/20 12 8:37AM BY NADYA CAMILO, OFFICE VISIT BLAYNE Hurtado, [facility] 6 09:33:55 Follow-u p encounte r Completed 201102/19/2014 RECORDED 03/19/20 12 8:24AM BY LETTY LUNA ON/ADDEN DUM BLAYNE Hurtado, [facility] 6 09:33:55 Adult health examinat ion Completed 201102/19/2014 RECORDED 04/23/20 12 9:33AM BY DIXON HOLLAND MA, ANNOTATI ON/ADDEN DUM BLAYNE Hurtado, [facility] 6 09:33:55 General examinat ion of patient Completed 200702/19/2014 RECORDED 07/14/20 08 7:03AM BY LETTY FU ON/ADDEN DUM BLAYNE Hurtado, [facility] 6 09:33:55 Hypercho lesterol emia 31106850 Completed 201202/19/2014 RECORDED 11/26/19 13 1:46PM BY DIXON HOLLAND MA ANNOTJEANNIE ON/ADDEN DUM HienBLAYNE Sloan [facility] 6 09:33:54 Hypersom donis 97535376 Completed 201102/19/2014 RECORDED 06/18/20 12 7:23AM BY LETTY BERNAL [facility] 09:[facility] Epidermo id cyst of skin 667926442 Completed 201102/19/2014 RECORDED 03/19/20 12 8:24AM BY LETTY LUNA ON/ADDEN [facility] 6 09:33:55 Renewal of prescrip tion Completed 201202/19/2014 RECORDED 11/26/19 13 1:46PM BY DIXON HOLLAND MA, LETTY ON/ADDEN [facility] 6 09:33:55 Administ ration of bacteria l and viral vaccine Completed 200702/19/2014 RECORDED 03/31/20 08 7:18AM BY HIEN MANNING MA, OFFICE VISIT [facility] 6 09:33:55 Hyperhid rosis 505397625 Completed 201102/19/2014 RECORDED 04/23/20 12 9:33AM BY DIXON HOLLAND MA, LETTY ON/ADDEN [facility] 6 09:33:55 Tobacco user 624676105 Completed 201102/19/2014 RECORDED 03/19/20 12 8:24AM BY LETTY LUNA ON/ADDEN DUM BLAYNE Hurtado, [facility] 6 09:33:55 Sprain of foot 83857721 Completed 201102/19/2014 RECORDED 03/19/20 12 8:24AM BY LETTY LUNA ON/ADDEN [facility] 6 09:33:55 Sprains and strains of joints and adjacent muscles Completed 201102/20/2014 RECORDED 04/23/20 12 9:33AM BY DIXON HOLLAND MA, LETTY ON/ADDEN DUM BLAYNE Hurtado, [facility] 6 09:33:55 Bicipita l tenosyno vitis 24562789 Completed 201202/20/2014 IMPRESSI ON: AT ATTACHME NT AT ELBOW. CONTINUE ALEVE; RECORDED 10/24/19 13 10:00AM BY HIEN MANNING MA, LETTY ON/ADDEN DUM BLAYNE Hurtado, [facility] 6 09:33:55 Chest pain 70765955 Completed 201102/20/2014 RECORDED 04/23/20 12 9:33AM BY DIXON HOLLAND MA, LETTY ON/ADDEN [facility] 6 09:33:55 Closed fracture of lower end of radius AND ulna 40383543 Completed 200802/20/2014 RECORDED 05/20/20 09 8:20AM BY RYAN BUSTOS MD, LETTY ON/ADDEN DUM BLAYNE Hurtado, [facility] 6 09:33:55 Disorder of kidney and/or ureter 921765246 Completed 200802/20/2014 IMPRESSI ON: CREATINI NE 1.4 (11/2006) ; RECORDED 05/20/20 09 8:20AM BY RYAN BUSTOS MD, ANNOTJEANNIE ON/ADDEN DUM BLAYNE Hurtado, [facility] 6 09:33:55 Edema 306479803 Completed 200802/20/2014 RECORDED 05/20/20 09 7:44AM BY HIEN MANNING MA, ANNOTATI ON/ADDEN DUM Hien Nicole-M BLAYNE rico, [facility] 6 09:33:55 Influenz a vaccine needed [id number] 06 Completed 201102/20/2014 RECORDED 03/19/20 12 8:37AM BY NADYA CAMILO, OFFICE VISIT BLAYNE Hurtado, [facility] 6 09:33:55 Follow-u p encounte r Completed 201102/20/2014 RECORDED 03/19/20 12 8:24AM BY LETTY LUNA ON/ADDEN DUM [facility]ien [facility] 09:33:55 Adult health examinat ion Completed 201102/20/2014 RECORDED 04/23/20 12 9:33AM BY DIXON HOLLAND MA, ANNOTATI ON/ADDEN [facility] 6 09:33:55 General examinat ion of patient Completed 200702/20/2014 RECORDED 07/14/20 08 7:03AM BY LETTY FU ON/ADDEN DUM Hien Nicole-BLAYNE Humphrey, [facility] 6 09:33:55 Hypercho lesterol emia 49227608 Completed 201202/20/2014 RECORDED 11/26/19 13 1:46PM BY DIXON HOLLAND MA, ANNOTATI ON/ADDEN DUM [facility] 6 09:33:54 Hypersom donis 16518245 Completed 201102/20/2014 RECORDED 06/18/20 12 7:23AM BY LETTY BERNAL ON/ADDBLAYNE Neri, [facility] 6 09:33:55 Epidermo id cyst of skin 900843549 Completed 201102/20/2014 RECORDED 03/19/20 12 8:24AM BY LETTY LUNA ON/ADDEN DUM BLAYNE Hurtado, [facility] 6 09:33:55 Renewal of prescrip tion Completed 201202/20/2014 RECORDED 11/26/19 13 1:46PM BY DIXON HOLLAND MA, LETTY ON/ADDEN DUM BLAYNE Hurtado, [facility] 6 09:33:55 Administ ration of bacteria l and viral vaccine Completed 200702/20/2014 RECORDED 03/31/20 08 7:18AM BY HIEN MANNING MA, OFFICE VISIT BLAYNE Hurtado, [facility] 6 09:33:55 Hyperhid rosis 273047013 Completed 201102/20/2014 RECORDED 04/23/20 12 9:33AM BY DIXON HOLLAND MA, LETTY ON/ADDEN [facility] 6 09:33:55 Tobacco user [id number] Completed 201102/20/2014 RECORDED 03/19/20 12 8:24AM BY LETTY LUNA ON/ADDEN DUM BLAYNE Hurtado, [facility] 6 09:33:55 Sprain of foot 16930969 Completed 201102/20/2014 RECORDED 03/19/20 12 8:24AM BY LETTY LUNA ON/ADDEN DUM BLAYNE Hurtado, [facility] 6 09:33:55 Body mass index 30+ - obesity 211102827 Active BLAYNE Hurtado, [facility] 6 09:33:55 Low back pain 113442991 Active Hien rico BLAYNE nagel, [facility] 6 09:33:55 Divertic ulitis of colon 069804462 Active Hien rico BLAYNE nagel, [facility] 6 09:33:55 Fatigue 21257248 Active Hienlynette rico BLAYNE nagel, [facility] 6 09:33:55 Hypergly cemia 25916065 Active Hien rico BLAYNE shona, [facility] 6 09:33:55 Sprains and strains of joints and adjacent muscles Completed 201101/27/2014 RECORDED 04/23/20 12 9:33AM BY DIXON HOLLAND MA, ANNOTATI ON/ADDEN DUM Hien rico BLAYNE shona, [facility] 6 09:33:55 Acute prostati tis 81482703 Active 2013 IMPRESSI ON: WE DISCUSSE D [...] HIEN MANNING MA, OFFICE VISIT BLAYNE Hurtado, [facility] 6 09:33:55 Bicipita l nonaosyno vitis 48484380 Completed 201201/27/2014 IMPRESSI ON: AT ATTACHME NT AT ELBOW. CONTINUE ALEVE; RECORDED 10/24/19 13 10:00AM BY HIEN MANNING MA, ANNOTATI ON/ADDEN DUM BLAYNE Hurtado, [facility] 6 09:33:55 Biliuria 03706597 Active 2013 BLAYNE Hurtado, [facility] 6 09:33:55 Carpal tunnel syndrome 14715853 Completed 200801/27/2014 RECORDED 05/20/20 09 8:20AM BY RYAN BUSTOS MD, ANNOTATI ON/ADDEN DUM BLAYNE Hurtado, [facility] 6 09:33:55 Chest pain 82364500 Completed 201101/27/2014 RECORDED 04/23/20 12 9:33AM BY DIXON HOLLAND MA, ANNOTATI ON/ADDEN DUM BLAYNE Hurtado, [facility] 6 09:33:55 Chronic tension- type headache 876900437 Active 2013 BLAYNE Hurtado, [facility] 6 09:33:55 Closed fracture of lower end of radius AND ulna 39468734 Completed 200801/27/2014 RECORDED 05/20/20 09 8:20AM BY RYAN BUSTOS MD, ANNOTATI ON/ADDEN DUM BLAYNE Hurtado, [facility] 6 09:33:55 Depressi ve disorder 82413566 Active 2013 BLAYNE Hurtado, [facility] 6 09:33:55 Disorder of kidney and/or ureter 778963058 Completed 200801/27/2014 IMPRESSI ON: CREATINI NE 1.4 (11/2006) ; RECORDED 05/20/20 09 8:20AM BY RYAN BUSTOS MD, ANNOTATI ON/ADDEN DUM BLAYNE Hurtado, [facility] 6 09:33:55 Edema 062217740 Completed 200801/27/2014 RECORDED 05/20/20 09 7:44AM BY HIEN MANNING MA, LETTY ON/ADDEN DUM BLAYNE Hurtado, [facility] 6 09:33:55 Gastroes ophageal reflux disease 301882732 Active 2013 BLAYNE Hurtado, [facility] 6 09:33:55 Malaise and fatigue 607454162 Active 2013 BLAYNE Hurtado, [facility] 6 09:33:55 Influenz a vaccine needed 25114920834 06 Completed 201101/27/2014 RECORDED 03/19/20 12 8:37AM BY NADYA CAMILO, OFFICE VISIT BLAYNE Hurtado, [facility] 6 09:33:55 Follow-u p encounte r Completed 201101/27/2014 RECORDED 03/19/20 12 8:24AM BY LETTY LUNA ON/ADDEN [facility] 09:[facility] Adult health examinat ion Completed 201101/27/2014 RECORDED 04/23/20 12 9:33AM BY DIXON HOLLAND MA, ANNOTATI ON/ADDEN DUM BLAYNE Hurtado, [facility] 6 09:33:55 General examinat ion of patient Completed 200701/27/2014 RECORDED 07/14/20 08 7:03AM BY LETTY FU ON/ADDEN DUM BLAYNE Hurtado, [facility] 6 09:33:55 Hypercho lesterol emia 70086753 Completed 201201/27/2014 RECORDED 11/26/19 13 1:46PM BY DIXON HOLLAND MA, ANNOTATI ON/ADDEN DUM BLAYNE Hurtado, [facility] 6 09:33:54 Hyperlip idemia 61253826 Active 2013 BLAYNE Hurtado, [facility] 6 09:33:54 Hypersom donis 63470430 Completed 201101/27/2014 RECORDED 06/18/20 12 7:23AM BY LETTY BERNAL ON/ADDEN DUM BLAYNE Hurtado, [facility] 6 09:33:55 Essentia l hyperten duglas 95095480 Active 2013 BLAYNE Hurtado, [facility] 6 09:33:55 Epidermo id cyst of skin 392250344 Completed 201101/27/2014 RECORDED 03/19/20 12 8:24AM BY LETTY LUNA ON/ADDEN DUM BLAYNE Hurtado, [facility] 6 09:33:55 Insomnia 356083661 Active 2013 BLAYNE Hurtado, [facility] 6 09:33:55 Renewal of prescrip tion Completed 201201/27/2014 RECORDED 11/26/19 13 1:46PM BY DIXON HOLLAND MA, LETTY ON/ADDEN DUM BLAYNE Hurtado, [facility] 6 09:33:55 Fibromyo sitis 17927958 Active 2013 BLAYNE Hurtado, [facility] 6 09:33:55 Administ ration of bacteria l and viral vaccine Completed 200701/27/2014 RECORDED 03/31/20 08 7:18AM BY HIEN MANNING MA, OFFICE VISIT BLAYNE Hurtado, [facility] 6 09:33:55 Hyperhid rosis 054938812 Completed 201101/27/2014 RECORDED 04/23/20 12 9:33AM BY DIXON HOLLAND MA, ANNOTATI ON/ADDEN DUM BLAYNE Hurtado, [facility] 6 09:33:55 Obesity 457212484 Active 2013 STORY: RECENT INCREASE IN HIS WEIGHT.; RECORDED 01/10/20 14 1:21PM BY HIEN MANNING MA, OFFICE VISIT BLAYNE Hurtado, [facility] 6 09:33:55 Tobacco user [id number] Completed 201101/27/2014 RECORDED 03/19/20 12 8:24AM BY LETTY LUNA ON/ADDEN DUM BLAYNE Hurtado, [facility] 6 09:33:55 History of clinical finding in subject 411390364 Active 2011 BLAYNE Hurtado, [facility] 6 09:33:55 Proteinu brandon 00102390 Active 2013 BLAYNE Hurtado, [facility] 6 09:33:55 Psychose xual dysfunct ion associat ed with inhibite d libido 317510120 Active 2013 BLAYNE Hurtado, [facility] 6 09:33:55 Sprain of foot 22382666 Completed 201101/27/2014 RECORDED 03/19/20 12 8:24AM BY LETTY LUNA ON/ADDEN DUM BLAYNE Hurtado, [facility] 6 09:33:55 Tobacco dependen ce syndrome 07287036 Active 2013 Hien rico MA null, [facility] 6 09:33:55 Problem Notes None recorded. Procedures Surgical History Date Name Laterality Status Provider Name and Address Organization Details Recorded Time 6 Colonoscopy completed Analias Degutis [facility] 12/06/2015 16:58:34 3 Vasectomy completed [facility] 05/12/2014 08:16:32 5 Circumcision completed [facility] 05/12/2014 08:16:32 Imaging Results Imaging Date Name Status LastModified by Organization Details LastModified Time 10/30/2014 imaging/diagnostic result completed [facility] Information not available 08/25/2015 09:50:37 08/25/2015 electrocardiogram completed [facility] Informa tion not available 08/25/2015 09:41:39 Procedure Notes None recorded. Medical Equipment None Reported. Allergies Allergen ID Allergen Name Allergen Category Reaction Reaction Severity Criticality Documentation Date Start Date Code Code System Note Provider Name and Address Organization Details Recorded Time 1997 aspirin medicatio n nausea Not available Not available 01/27/2014 1191 RxNorm DANIS Bah [address] [address], [place], [address] [place] [address] 5 16:39:27 Medications Name Sig Start Date [...] Updated DateTime 4 97 % 97 % 77322.6 5874 g 98.1 [degF] 64 /min 31.2 kg/m2 171.45 cm 115 mm[Hg] 74 mm[Hg] Dixon Rockt [facility] 4 08:21:21 Date Recorded Oxygen saturation Oxygen saturation in Arterial blood by Pulse oximetry Body weight Heart rate Body mass index (BMI) Body height Body temperature Systolic blood pressure Diastolic blood pressure Provider Name and Address Organization Details Last Updated DateTime 5 96 % 96 % 939826. 86012 g 80 /min 36.1 kg/m2 171.45 cm 97.9 [degF] 110 mm[Hg] 70 mm[Hg] Elsa Conrad MA [facility] 5 09:52:32 Date Recorded Body weight Oxygen saturation Oxygen saturation in Arterial blood by Pulse oximetry Body height Body mass index (BMI) Body temperature Heart rate Systolic blood pressure Diastolic blood pressure Provider Name and Address Organization Details Last Updated DateTime 5 976520. 72097 g 96 % 96 % 171.45 cm 36.7 kg/m2 96.3 [degF] 98 /min 117 mm[Hg] 80 mm[Hg] Elsa Conrad MA [facility] 5 16:28:18 Date Recorded Body height Body mass index (BMI) Body weight Oxygen saturation Oxygen saturation in Arterial blood by Pulse oximetry Heart rate Body temperature Systolic blood pressure Diastolic blood pressure Provider Name and Address Organization Details Last Updated DateTime 6 171.45 cm 36.3 kg/m2 925891. 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 Information not available 08/25/2015 Have There Been [...] Recorded Time Tdap 8 completed Not Available [facility] 01/27/2014 13:31:33 Influenza, split virus, trivalent, preservative 2 completed Not Available [facility] 01/27/2014 13:31:33 Influenza, split virus, trivalent, PF 4 completed Not Available [facility] 08/02/2019 02:21:57 Past Encounters Encounter ID Performer Location Encounter Start Date Encounter Closed Date Diagnosis/Indication Diagnosis SNOMED-CT Code Diagnosis ICD10 Code Diagnosis Note [id number] autoEComm erce [address] [facility] [place] [address] 11/14/2006 00:00:00 [id number] autoEComm erce [address] [facility] [place] [address] 03/31/2008 00:00:00 [id number] [place] [address] 07/14/2008 00:00:00 [id number] [address]Comm [address] [place] [address] 09/23/2008 00:00:00 [id number] auto[address]Comm erce [address] [place] [address] 10/09/2008 00:00:00 [id number] auto[address]Comm erce [address] [place] [address] 10/29/2008 00:00:00 [id number] autoEComm erce [address] [facility] [address] [place] [address] 12/24/2008 00:00:00 [id number] autoEComm erce [address] [facility] [place] [address] 02/01/2009 00:00:00 [id number] autoEComm erce [address] [facility] [place] [address] 05/20/2009 00:00:00 [id number] autoEComm erce [address] [facility] [place] [address] 08/26/2009 00:00:00 [id number] autoEComm erce [address] [facility] [place] [address] 09/30/2009 00:00:00 [id number] autoEComm erce [address] [facility] [place] [address] 12/22/2009 00:00:00 [id number] autoEComm erce [address] [facility] [place] [address] 01/24/2010 00:00:00 [id number] autoEComm erce [address] [facility] [address] [place] [address] 06/07/2010 00:00:00 [id number] autoEComm erce [address] [facility] [place] [address] 08/30/2010 00:00:00 [id number] autoEComm erce [address] [facility] [place] [address] 11/21/2011 00:00:00 [id number] autoEComm erce [address] [facility] [address] [place] [address] 03/19/2012 00:00:00 [id number] autoEComm erce [address] [facility] [place] [address] 04/23/2012 00:00:00 [id number] autoEComm erce [address] [facility] [place] [address] 06/18/2012 00:00:00 [id number] autoEComm erce [address] [facility] [place] [address] 08/19/2012 00:00:00 [id number] autoEComm erce [address] [facility] [place] [address] 11/25/2012 00:00:00 [id number] autoEComm erce [address] [facility] [place] [address] 01/09/2014 00:00:00 [id number] Main Office [address] [address] [place], [place] [address] 05/12/2014 08:03:54 05/12/2014 09:32:08 Adult health examination [id number] Needs infl uenza immunization 968994857 Body mass index 30+ - obesity 962069493 Tobacco de pendence syndrome 73555381 Essential hypertension 30114771 Low back pain 046898353 Hyperlipidemia 05076605 [id number] Ryan Bustos MD Main Office [address] [address] [place] MENDE[place], [place] [address] 11/02/2014 09:42:42 11/02/2014 10:19:22 Diverticulitis of colon 027277763 symptomati c improvemen t on abx, complete course of antibiotic [id number] Ryan Bustos MD Main Office [address] [address] [place] MEN[place], [place] [address] 05/28/2015 16:19:08 05/28/2015 16:57:55 Diverticulitis of colon 193790289 K57.32 Patient w/ hx diverticul itis via [...] plan. Screening for malignant neoplasm of colon 207151565 Z12.11 [id number] Ryan Bustos MD Main Office [address] [address] 08/25/2015 09:09:08 08/25/2015 10:14:52 Essential hypertension 30315750 I10 Screening for malignant neoplasm of colon 904595788 Z12.11 Hyperglycemia 28256133 R 73.9 Hyperlipidemia 77901487 E78.5 Malaise and fatigue 2717 13205 R53.83 Tobacco de pendence syndrome 42649117 F17.290 Gastroesop hageal reflux disease 766344026 K21.9 Body mass index 30+ - obesity 078696082 Z68.36 Health Concerns Section Related Observation LastModified by Organization Detai ls LastModified Time None Recorded Concern Status LastModified by Organization Details LastModified Time None Recorded Advance Directives Directive N: Payers Encounter Date Sequence Insurance Name Policy Number Policy Salazar Covered Member ID Salazar Member ID Guarantor Name 05/12/2014 1 [facility]PPO[facility] [id number] Ross Mosley oks [id number] Ross Desai ks 11/02/2014 1 [facility] (PPO[facility] [id number] Ross Mosley oks [id number] Ross Desai ks 05/28/2015 1 [facility] (PPO) [id number] Ross Chatman-Praful oks [id number] Ross Desai ks 08/25/2015 1 [facility] (O) [id number] Ross Mosley [facility] [id number] Ross Desai ks Notes Date Note Type Note Provider Name and Address Organization Details Recorded Time 11/02/2014 text/html H/o LLQ abdomina l pain started 3 days ago while visiting family in [place], progressively worsened within 2 hours. He went [...] tolerating PO fluids. Ryan Bustos MD [address], [address], [facility] 11/02/2014 12:34:39 08/25/2015 text/html Notes symptoms o [...] of distressing dreams. Ryan Bustos MD [address], [address], [facility] 08/25/2015 22:00:19 08/25/2015 text/html HeadacheReported bypatient.Notes:Notes posterior [...] concerns about weight gain. Ryan Bustos MD [address] [address], [place], [address], [facility] 08/25/2015 22:00:19
--- OUTSIDE RECORDS SUMMARY | 2024-10-17 16:06 | XMS_ITS | Encounter Summary ---
Author Organization [facility] Address [address] [place] [address] Care Team Providers Care Lending Activities Supervisor Name Role Phone Orlin Chambers MD Primary Care Provider Encounter Details Date Type Department Care Team (Late st Contact Info) Description 01/25/2023 Scanned Document [facility] ORTHO SURGERY SCAN [facility] [address] [address] Social History Tobacco Use Types Packs/Day Years [...] on filedocumented in this encounter Care Teams Lending Activities Supervisor Relationship Specialty Start Date End Date Orlin Chambers MD [address] [place] [address] 203 [place] [address] PCP - General Family Medicine 01/29/19 08/16/23 Juma Harrington [facility] Pulmonary Medicine 11/23/21 documented as of this encounter
--- OUTSIDE RECORDS SUMMARY | 2024-10-17 16:06 | XMS_ITS | Encounter Summary ---
Author Organization [facility] Address [address] [place] [address] Care Team Providers Care Sand Miller Name Role Phone Unavailable Primary Care Provider Unavailabl e Encounter Details Date Type Department Care Team ([facility] st Contact Info) Description 11/05/2023 Scanned Document [facility] Cardiology, Scan Social [...] on filedocumented in this encounter Care Teams Sand Miller Relationship Specialty Start Date End Date Juma Harrington [facility] Pulmonary Medicine 11/23/21 documented as of this encounter
--- OUTSIDE RECORDS SUMMARY | 2024-10-17 16:06 | XMS_ITS | Encounter Summary ---
Author Organization [facility] Address [address] [place] [address] Care Team Providers Care On Site Soil Evaluator Name Role Phone Orlin Chambers MD Primary Care Provider Encounter Details Date Type Department Care Team (Late st Contact Info) Description 01/30/2023 Scanned Document [facility] ORTHO SURGERY SCAN [place] [address] [address] Social History Tobacco Use Types Packs/Day Years [...] on filedocumented in this encounter Care Teams On Site Soil Evaluator Relationship Specialty Start Date End Date Orlin Chambers MD [address] [place] [address] [address] [place] [address] PCP - General Family Medicine 01/29/19 08/16/23 Juma Harrington [facility] Pulmonary Medicine 11/23/21 documented as of this encounter
--- OUTSIDE RECORDS SUMMARY | 2024-10-17 16:06 | XMS_ITS | Encounter Summary ---
Author Organization [facility] Address [address] [place] [address] Care Team Providers Care Senior Marketing Manager Name Role Phone Orlin Chambers MD Primary Care Provider Encounter Details Date Type Department Care Team (Late st Contact Info) Description 10/06/2022 Scanned Document [facility] [address] [place] [address] [facility] [address] [address] Social History Tobacco Use Types Packs/Day Years [...] filedocumented in this encounter Care Teams Senior Marketing Manager Relationship Specialty Start Date End Date Orlin Chambers MD [address] [address] PCP - General Family Medicine 01/29/19 08/16/23 Juma Harrington [facility] Pulmonary Medicine 11/23/21 documented as of this encounter
--- OUTSIDE RECORDS SUMMARY | 2024-10-17 16:06 | XMS_ITS | Encounter Summary ---
Author Organization [facility] Address [address] [place] [address] Care Team Providers Care Pediatric Immunologist Name Role Phone Orlin Chambers MD Primary Care Provider [phone] Reason for Visit * Reason Comments Medication Refill Encounter Details Date Type Department Care Team (Late st Contact Info) Description 08/04/2019 Refill [facility] [address] [address] Orlin Chambers MD 100 [facility] [address] [place] [address] Insomnia, unspecified type Social History [...] type documented in this encounter Care Teams Pediatric Immunologist Relationship Specialty Start Date End Date Orlin Chambers MD [address] [address] PCP - General Family Medicine 01/29/19 08/16/23 Juma Harrington [facility] Pulmonary Medicine 11/23/21 documented as of this encounter
--- OUTSIDE RECORDS SUMMARY | 2024-10-17 16:06 | XMS_ITS | Clinical Summary ---
Author Organization [facility] Address [address] [place] [address] Care Team Providers Care Despatching And Receiving Clerk Name Role Phone Pcp, No MD Primary [...] - 2023-2 5 season) 2024 Influenza Vaccine (Season Ended) 2025 07/18/19 22 DTaP,Tdap,and Td Vaccines (2 - Td or [...] age to complete this topic Care Teams Despatching And Receiving Clerk Relationship Specialty Start Date End Date PcpVonda MD [address] [place], [place] [id number] PCP - General Internal Medicine 02/21/21
--- OUTSIDE RECORDS SUMMARY | 2024-10-17 16:06 | XMS_ITS | Encounter Summary ---
Author Organization [facility] Address [address] [place] [address] Care Team Providers Care Psychosocial Rehabilitation Counselor Name Role Phone Orlin Chambers MD Primary Care Provider [phone] Reason for Visit * Reason Comments Medication Refill Encounter Details Date Type Department Care Team (Late st Contact Info) Description 09/12/2019 Refill [facility] [address] [facility] [address] [place] [address] Anayeli Del Rosario, GRINDER AND HONER OPERATOR AUTOMATIC 100 [facility] [address] [place], [place] [id number] Anxiety Social History Tobacco Use Types Packs/Day [...] unspecified documented in this encounter Care Teams Psychosocial Rehabilitation Counselor Relationship Specialty Start Date End Date Orlin Chambers MD [address] [address] PCP - General Family Medicine 01/29/19 08/16/23 Juma Harrington [facility] Pulmonary Medicine 11/23/21 documented as of this encounter
--- OUTSIDE RECORDS SUMMARY | 2024-10-17 16:06 | XMS_ITS | Encounter Summary ---
Author Organization [facility] Address [address] [place] [address] Care Team Providers Care Lactation Specialist Name Role Phone Orlin Chambers MD Primary Care Provider [phone] Encounter Details Date Type Department Care Team (Late st Contact Info) Description 11/01/2020 Scanned Document [facility] ORTHO SURGERY SCAN Orthopedic Surgery, Scan Social [...] on filedocumented in this encounter Care Teams Lactation Specialist Relationship Specialty Start Date End Date Orlin Chambers MD [address] [address] PCP - General Family Medicine 01/29/19 08/16/23 Juma Harrington [facility] Pulmonary Medicine 11/23/21 documented as of this encounter
--- OUTSIDE RECORDS SUMMARY | 2024-10-17 16:06 | XMS_ITS | Clinical Summary ---
Author Organization [facility] Address [address] [place] [address] Care Team Providers Care Warning Analyst Name Role Phone Unavailable Primary Care Provider [...] Urine, Random (06/06/2022 8:55 AM EST) Pathologist [facility] Creatinine, Urine, Random 242 20 - 320 mg/dL [facility] Microalbumin, Urine, Random 12.1 See Note: mg/dL [facility] Comment: Reference Range: Reference Range Not established Microalbumin/Creat inine Ratio 50(H) <30 mcg/mg creat [facility] Comment: The ADA defines abnormalities in albumin [...] FASTING: YES Orlin Chambers MD URINE ORDERABLES [facility] [address] [place] [address], [place] [address] * (ABNORMAL) Hemoglobin A1c (06/06/2022 8:55 AM EST) Hemoglobin A1C 6.5(H) <5.7 % of total Hgb [facility] Comment: For someone without known diabetes, a [...] MD LAB BLOOD ORDERABLES Performing Organization Address City/[facility]/ZIP Co de Phone Number [facility] [address] [address] * (ABNORMAL) Basic Metabolic Panel (06/06/2022 8:55 AM EST) Glucose 129(H) 65 - 99 mg/dL [facility] Comment: ? Fasting reference interval For someone without known diabetes, a glucose value >125 mg/dL indicates that they may have diabetes and this should be confirmed with a follow-up test. Blood Urea Nitrogen (BUN) 33(H) 7 - 25 mg/dL [facility] Creatinine 1.49(H) 0.70 - 1.30 mg/dL [facility] Creatinine w/ eGFR 54(L) > OR = 60 mL/min/1.7 3m2 [facility] Comment: The eGFR is based on the CKD-EPI 2020 equation. To calculate the new eGFR from a previous Creatinine or Cystatin C result, go to https://www.kidney.org/professionals/ kdoqi/gfr%5Fcalculator BUN/Creatinine Ratio 22 6 - 22 (calc) [facility] Sodium 139 135 - 146 mmol/L [facility] Potassium 4.1 3.5 - 5.3 mmol/L [facility] Chloride 102 98 - 110 mmol/L [facility] CO2 27 20 - 32 mmol/L [facility] Calcium 9.5 8.6 - 10.3 mg/dL [facility] Blood specimen (specimen) 06/06/2022 8:55 AM EST 06/06/2022 8:55 AM EST Narrative [facility] - 06/07/2022 4:59 PM EST FASTING:YES FASTING: YES Orlin Chambers MD LAB BLOOD ORDERABLES Performing Organization Address City/[facility]/ZIP Co de Phone Number [facility] [address], [place] [address] * (ABNORMAL) Lipid Panel Reflex Direct LDL (12/07/2021 8:13 AM EDT) Cholesterol, Total 191 <200 mg/dL [facility] Cholesterol, HDL 48 > OR = 40 mg/dL [facility] Triglycerides 237(H) <150 mg/dL [facility] Comment: If a non-fasting specimen was collected, consider repeat triglyceride testing on a fasting specimen if clinically indicated. Chris et al. J. of Clin. Lipidol. 2015;9:129-169. LDL Cholesterol 107(H) mg/dL (calc) [facility] Comment: Reference range: <100 Desirable range <100 mg/dL for primary prevention; ?? <70 mg/dL for patients with CHD or diabetic patients with > or = 2 CHD risk factors. LDL-C is now calculated using the Michael-Rosario calculation, which is a validated novel method providing better accuracy than the Friedewald equation in the estimation of LDL-C. Michael SS et al. ELSY. 2013;310(19): 9979-2756 (http://education.Financeit/faq/XHP549) Cholesterol/HDL Ratio 4.0 <5.0 (calc) [facility] Non HDL Chol. (LDL+VLDL) 143(H) <130 mg/dL (calc) [facility] Comment: For patients with diabetes plus 1 major ASCVD risk factor, treating to a non-HDL-C goal of <100 mg/dL (LDL-C of <70 mg/dL) is considered a therapeutic option. Blood specimen (specimen) 12/07/2021 8:13 AM EDT 12/07/2021 8:13 AM EDT Narrative [facility] - 12/08/2021 12:09 AM EDT FASTING:YES FASTING: YES Orlin Chambers MD LAB BLOOD ORDERABLES [facility] [address], [place] [address] * CT Thorax w/o contrast (05/29/2019 9:23 [...] your patient to us, Travis Villarreal MD [id number] (Electronically Signed - 05/29/2019 09:23) Copy: ORLIN CHAMBERS DO [facility] 10 100 [facility] [address] PATIENT , ?? Narrative 05/29/2019 9:23 AM EST EXAMINATION: CT CHEST WITHOUT CONTRAST CLINICAL INFORMATION: Left lower lobe pulmonary nodule. COMPARISON: No relevant prior studies are available for comparison. TECHNIQUE: Multidetector volumetric CT imaging of the chest was done. Axial MIP volume rendering provided. Sagittal and coronal reformatted images were obtained. DLP: 523.69 mGy-cm FINDINGS: FIRER WATERTENDER: Unremarkable. LUNGS: There is a 3 mm [...] images were obtained. DLP: 523.69 mGy-cm FINDINGS: FIRER WATERTENDER: Unremarkable. LUNGS: There is a 3 mm nodule medially within the right upper lobe(axial image 151/505). There is an adjacent 1-2 mm nodule (axial [id number]/505). There is an irregular 0.6 cm nodule [...] interval change. According to the UPDATED 2017 [facility] recommendations, the advised follow up imaging for [...] your patient to us, Travis Villarreal MD [phone] (Electronically Signed - 05/29/2019 09:23) Copy: ORLIN CHAMBERS DO [facility] 10 100 [place] [address] PATIENT , Kelly Bustillo MD IMG CT ORDERABLES from Last 3 Months or Most Recently Relevant to Health Maintenance Care Teams Warning Analyst Relationship Specialty Start Date End Date Juma Harrington [facility] Pulmonary Medicine 11/23/21
--- OUTSIDE RECORDS SUMMARY | 2024-10-17 16:06 | XMS_ITS | Encounter Summary ---
Author Organization [facility] Address [address] [place] [address] Care Team Providers Care Commissary Agent Name Role Phone Orlin Chambers MD Primary Care Provider [phone] Reason for Visit * Reason Comments Medication Refill Encounter Details Date Type Department Care Team (Late st Contact Info) Description 08/04/2019 Refill [facility] 10 100 [facility] [address] [place] [address] Anayeli Del Rosario, SPRINKLER TRUCK DRIVER 100 [facility] [address] [place], [place] [phone] Hyperlipidemia, unspecified hyperlipidemia type Social History Tobacco [...] type documented in this encounter Care Teams Commissary Agent Relationship Specialty Start Date End Date Orlin Chambers MD 100 [place] [address] PCP - General Family Medicine 01/29/19 08/16/23 Juma Harrington [facility] Pulmonary Medicine 11/23/21 documented as of this encounter
--- OUTSIDE RECORDS SUMMARY | 2024-10-17 16:06 | XMS_ITS | Encounter Summary ---
Author Organization [facility] Address [address] [place] [address] Care Team Providers Care Bdr Name Role Phone Orlin Chambers MD Primary Care Provider [phone] Encounter Details Date Type Department Care Team (Late st Contact Info) Description 09/08/2020 Scanned Document [facility] [address] [place] [address] Provider, External, [address] [place] [address] Social History Tobacco Use Types Packs/Day Years [...] on filedocumented in this encounter Care Teams Bdr Relationship Specialty Start Date End Date Orlin Chambers MD 100 [place] [address] PCP - General Family Medicine 01/29/19 08/16/23 Juma Harrington [facility] Pulmonary Medicine 11/23/21 documented as of this encounter
--- OUTSIDE RECORDS SUMMARY | 2024-10-17 16:06 | XMS_ITS | Encounter Summary ---
Author Organization [facility] Address [address] [place] [address] Care Team Providers Care Director Community Health Nursing Name Role Phone Orlin Chambers MD Primary Care Provider [phone] Reason for Visit * Reason Onset Date Comments Medication Refill 11/10/2022 Encounter Details Date Type Department Care Team (Late st Contact Info) Description 11/10/2022 Refill [facility] [address] [place] [address] 203 [place] [address] Orlin Chambers MD 100 [facility] [address] [place], [place] [phone] Insomnia, unspecified type Social History Tobacco Use [...] type documented in this encounter Care Teams Director Community Health Nursing Relationship Specialty Start Date End Date Orlin Chambers MD 100 [place] [address] PCP - General Family Medicine 01/29/19 08/16/23 Juma Harrington [facility] Pulmonary Medicine 11/23/21 documented as of this encounter
--- OUTSIDE RECORDS SUMMARY | 2024-10-17 16:06 | XMS_ITS | Encounter Summary ---
Author Organization [facility] Address [address] [place] [address] Care Team Providers Care Film Cleaner Name Role Phone Orlin Chambers MD Primary Care Provider Encounter Details Date Type Department Care Team (Late st Contact Info) Description 08/24/2020 Scanned Document [facility] [address] [place] [address] Provider, External, [address] [place] [address] Social History Tobacco Use Types Packs/Day Years [...] on filedocumented in this encounter Care Teams Film Cleaner Relationship Specialty Start Date End Date Orlin Chambers MD 100 [place] [address] PCP - General Family Medicine 01/29/19 08/16/23 Juma Harrington [facility] Pulmonary Medicine 11/23/21 documented as of this encounter
--- OUTSIDE RECORDS SUMMARY | 2024-10-17 16:06 | XMS_ITS | Encounter Summary ---
Author Organization [facility] Address [address] [place] [address] Care Team Providers Care Forming Machine Adjuster Name Role Phone Orlin Chambers MD Primary Care Provider [phone] Encounter Details Date Type Department Care Team (Late st Contact Info) Description 06/03/2019 Scanned Document [facility] [place] [address] [address] Provider, Generic Social History Tobacco [...] on filedocumented in this encounter Care Teams Forming Machine Adjuster Relationship Specialty Start Date End Date Orlin Chambers MD 100 [facility] Liam 203 [place], [place] [phone] PCP - General Family Medicine 01/29/19 08/16/23 Juma Harrington [facility] Pulmonary Medicine 11/23/21 documented as of this encounter
--- OUTSIDE RECORDS SUMMARY | 2024-10-17 16:06 | XMS_ITS | Encounter Summary ---
Author Organization [facility] Address [address] [place] [address] Care Team Providers Care Lead Javascript Engineer Name Role Phone Orlin Chambers MD Primary Care Provider [phone] Encounter Details Date Type Department Care Team (Late st Contact Info) Description 05/25/2019 Scanned Document [facility] Pulmonary and Critical Care- [address] [address] Kelly Bustillo MD [address] [place] [address] Social History Tobacco Use Types Packs/Day Years [...] on filedocumented in this encounter Care Teams Lead Javascript Engineer Relationship Specialty Start Date End Date Orlin Chambers MD [address] [place] [id number] PCP - General Family Medicine 01/29/19 08/16/23 Juma Harrington [facility] Pulmonary Medicine 11/23/21 documented as of this encounter
--- OUTSIDE RECORDS SUMMARY | 2024-10-17 16:06 | XMS_ITS | Encounter Summary ---
Author Organization [facility] Address [address] [place] [address] Care Team Providers Care Carton Liner Name Role Phone Orlin Chambers MD Primary Care Provider Reason for Visit * Reason Comments Medication Refill Encounter Details Date Type Department Care Team (Late st Contact Info) Description 11/04/2019 Refill [facility] [place] 10 100 [facility] 203 [place] [phone] Anayeli Del Rosario APRN 100 [facility] Liam 203 [place], [place] [phone] Anxiety Social History Tobacco Use Types Packs/Day [...] unspecified documented in this encounter Care Teams Carton Liner Relationship Specialty Start Date End Date Orlin Chambers MD [address] [address] PCP - General Family Medicine 01/29/19 08/16/23 Juma Harrington [facility] Pulmonary Medicine 11/23/21 documented as of this encounter
--- OUTSIDE RECORDS SUMMARY | 2024-10-17 16:06 | XMS_ITS | Encounter Summary ---
Author Organization [facility] Address [address] [place] [address] Care Team Providers Care Electronics Engineering Technologist Name Role Phone Orlin Chambers MD Primary Care Provider [phone] Encounter Details Date Type Department Care Team (Late st Contact Info) Description 10/18/[address] [facility] [place] 10 100 [facility] 203 [place] [address] Michael Sweeney MD [address] [place] [address] 201 [place] [address] Social History Tobacco Use Types Packs/Day Years [...] on filedocumented in this encounter Care Teams Electronics Engineering Technologist Relationship Specialty Start Date End Date Orlin Chambers MD [address] [facility] Liam [address] [place], [place] [phone] PCP - General Family Medicine 01/29/19 08/16/23 Juma Harrington [facility] Pulmonary Medicine 11/23/21 documented as of this encounter
--- OUTSIDE RECORDS SUMMARY | 2024-10-17 16:06 | XMS_ITS | Encounter Summary ---
Author Organization [facility] Address [address] [place] [address] Care Team Providers Care Personal Investment Adviser Name Role Phone Orlin Chambers MD Primary Care Provider [phone] Encounter Details Date Type Department Care Team (Late st Contact Info) Description 12/06/2022 Scanned Document [facility] [address] [place] [address] Cardiology, Scan Social History Tobacco Use [...] on filedocumented in this encounter Care Teams Personal Investment Adviser Relationship Specialty Start Date End Date Orlin Chambers MD [address] [address] PCP - General Family Medicine 01/29/19 08/16/23 Juma Harrington [facility] Pulmonary Medicine 11/23/21 documented as of this encounter
--- OUTSIDE RECORDS SUMMARY | 2024-10-17 16:06 | XMS_ITS | Encounter Summary ---
Author Organization [facility] Address [address] [place] [address] Care Team Providers Care Yard Driver Name Role Phone Orlin Chambers MD Primary Care Provider Encounter Details Date Type Department Care Team (Late st Contact Info) Description 01/29/2019 Scanned Document [facility] [place] 10 100 [facility] [address] [place] [address] Provider, Hortencia, [address] [place] [address] Social History Tobacco Use Types Packs/Day Years [...] on filedocumented in this encounter Care Teams Yard Driver Relationship Specialty Start Date End Date Orlin Chambers MD 100 [facility] Liam 203 [place], [place] [phone] PCP - General Family Medicine 01/29/19 08/16/23 Juma Harrington [facility] Pulmonary Medicine 11/23/21 documented as of this encounter
--- OUTSIDE RECORDS SUMMARY | 2024-10-17 16:06 | XMS_ITS | Encounter Summary ---
Author Organization [facility] Address [address] [place] [address] Care Team Providers Care Cabbage Salter Name Role Phone Orlin Chambers MD Primary Care Provider Encounter Details Date Type Department Care Team (Late st Contact Info) Description 02/27/2023 Scanned Document [facility] Emergency Medicine, Scan [...] on filedocumented in this encounter Care Teams Cabbage Salter Relationship Specialty Start Date End Date Orlin Chambers MD [address] [place] [address] PCP - General Family Medicine 01/29/19 08/16/23 Juma Harrington [facility] Pulmonary Medicine 11/23/21 documented as of this encounter
--- OUTSIDE RECORDS SUMMARY | 2024-10-17 16:06 | XMS_ITS | Clinical Summary ---
Author Organization [facility] Address [address] [place] [address] Care Team Providers Care Mergers And Acquisitions Manager Name Role Phone Orlin Chambers DO Primary Care Provider [phone] Surgical History Surgery Date Site/Laterality Comments WISDOM TOOTH EXTRACTION PROCEDURE:WISDOM TOOTH EXTRACTION KNEE ARTHROSCOPY 06/03/2019 Left PROCEDURE:KNEE ARTHROSCOPY;COMMENT:Procedure: LEFT KNEE ARTHROSCOPY, PARTIAL MEDIAL MENISCECTOMY; Surgeon: David Pack MD; Location: [facility]; Service: [facility]; Laterality: Left; [...] 2024 Influenza Vaccine (#1) 2024 RSV Immunization Adult Patie nts (1 - 1-dose 75+ series) 02/16/2040 HIB [...] age to complete this topic Care Teams Mergers And Acquisitions Manager Relationship Specialty Start Date End Date Orlin Chambers DO [address] [place] [address] PCP - General Family Medicine 06/17/18
--- OUTSIDE RECORDS SUMMARY | 2024-10-17 16:06 | XMS_ITS | Encounter Summary ---
Author Organization [facility] Address [address] [place] [address] Care Team Providers Care Racker Octave Board Name Role Phone Orlin Chambers MD Primary Care Provider [phone] Reason for Visit * Reason Onset Date Comments Medication Refill 11/13/2022 Encounter Details Date Type Department Care Team (Late st Contact Info) Description 11/13/2022 Refill [facility] [address] [place] [address] 203 [place] [address] Orlin Chambers MD 100 [facility] Liam 203 [place], [place] [phone] Insomnia, unspecified type Social History Tobacco Use [...] type documented in this encounter Care Teams Racker Octave Board Relationship Specialty Start Date End Date Orlin Chambers MD 100 [place] [address] PCP - General Family Medicine 01/29/19 08/16/23 Juma Harrington [facility] Pulmonary Medicine 11/23/21 documented as of this encounter
--- OUTSIDE RECORDS SUMMARY | 2024-10-17 16:06 | XMS_ITS | Clinical Summary ---
Author Organization [facility] Address [address] [place] [address] Care Team Providers Care Die Trimmer Name Role Phone Orlin Chambers Primary Care Provider Allergies No known active allergies Medications Medication [...] age to complete this topic Care Teams Die Trimmer Relationship Specialty Start Date End Date Orlin Chambers DO PCP - General Family Medicine 06/17/18
--- OUTSIDE RECORDS SUMMARY | 2024-10-17 16:06 | XMS_ITS | Encounter Summary ---
Author Organization [facility] Address [address] [place] [address] Care Team Providers Care Stewardesses Teacher Name Role Phone Orlin Chambers MD Primary Care Provider [phone] Reason for Visit * Reason Comments Medication Refill Encounter Details Date Type Department Care Team (Late st Contact Info) Description 02/01/2020 Refill [facility] 10 100 [facility] [address] [place] [address] Anayeli Del Rosario, REY 100 [facility] Liam 203 [place], [place] [phone] Anxiety Social History Tobacco Use Types Packs/Day [...] unspecified documented in this encounter Care Teams Stewardesses Teacher Relationship Specialty Start Date End Date Orlin Chambers MD [address] [address] PCP - General Family Medicine 01/29/19 08/16/23 Juma Harrington [facility] Pulmonary Medicine 11/23/21 documented as of this encounter
== END 2024-10-17 15:13 | disposition home or self-care (01) ==
LOC: HO.HKA 14:33
PROVIDERS: PCP Physician Assistant; Referring Provider Physician Assistant; Visit Provider Internal Medicine Nephrology
DX: N18.31 Chronic kidney disease, stage 3a (principal); I10 Essential (primary) hypertension; R80.9 Proteinuria, unspecified
CPT/HCPCS: 99204

== ENCOUNTER → 2024-10-17 14:33 | Outpatient (BNVA) | payer OTHER, SELFPAY | PROVIDERS: PCP Physician Assistant; Referring Provider Physician Assistant; Visit Provider Internal Medicine Nephrology ==

== ENCOUNTER 2024-10-20 10:22 | Outpatient (REF) | payer OTHER, SELFPAY ==
--- NOTE | ~2024-10-20 | US_ITS ---
EXAMINATION: US KIDNEY BILATERAL HISTORY: R79.9 - Abnormal finding of blood chemistry, unspecified TECHNIQUE: Real-time grayscale ultrasound imaging of the kidneys was performed and images were reviewed. COMPARISON: Correlation is made with a CT of the abdomen with contrast dated 02/27/2023. FINDINGS: Right kidney: The right kidney measures 12.1 x 6.2 x 5.2 cm. There is mild renal cortical thinning. There are no masses. There is no hydronephrosis or renal calculi. Left Kidney: The left kidney measures 12.5 x 6.2 x 5.2 cm. There is mild renal cortical thinning. There are no masses. There is no hydronephrosis or renal calculi. US/US renal BI IMPRESSION: Mild bilateral renal cortical thinning. Otherwise unremarkable renal ultrasound. Electronically signed by: Hoang Riley MD 10/20/2024 10:50 AM EDT
--- OUTSIDE RECORDS SUMMARY | 2024-10-20 12:08 | XMS_ITS | Encounter Summary ---
Author Organization [facility] Address [address] [place] [address] Care Team Providers Care Label Machine Operator Name Role Phone Orlin Chambers MD Primary Care Provider [phone] Encounter Details Date Type Department Care Team (Late st Contact Info) Description 02/27/2023 Scanned Document [facility] EMERGENCY MED SCAN Emergency Medicine, Scan Social [...] on filedocumented in this encounter Care Teams Label Machine Operator Relationship Specialty Start Date End Date Orlin Chambers MD [address] [place] [address] PCP - General Family Medicine 01/29/19 08/16/23 Juma Harrington [facility] Pulmonary Medicine 11/23/21 documented as of this encounter
--- OUTSIDE RECORDS SUMMARY | 2024-10-20 12:08 | XMS_ITS | Encounter Summary ---
Author Organization [facility] Address [address] [place] [address] Care Team Providers Care Piano Mover Name Role Phone Orlin Chambers MD Primary Care Provider [phone] Reason for Visit * Reason Onset Date Comments Medication Refill 04/12/2023 Encounter Details Date Type Department Care Team (Late st Contact Info) Description 04/12/2023 Refill [facility] [address] [place] [address] 203 [place] [address] Orlin Chambers MD 100 [facility] Liam 203 [place], [place] [phone] Insomnia, unspecified type Social History Tobacco Use [...] type documented in this encounter Care Teams Piano Mover Relationship Specialty Start Date End Date Orlin Chambers MD 100 [place] [address] PCP - General Family Medicine 01/29/19 08/16/23 Juma Harrington [facility] Pulmonary Medicine 11/23/21 documented as of this encounter
--- OUTSIDE RECORDS SUMMARY | 2024-10-20 12:08 | XMS_ITS | Encounter Summary ---
Author Organization [facility] Address [address] [place] [address] Care Team Providers Care Collar Trimmer Name Role Phone Orlin Chambers MD Primary Care Provider Encounter Details Date Type Department Care Team (Late st Contact Info) Description 09/05/2022 Scanned Document [facility] 10 100 [facility] 203 [place] [address] Orlin Chambers MD 100 [facility] 203 [place] [address] Social History Tobacco Use Types Packs/Day Years [...] on filedocumented in this encounter Care Teams Collar Trimmer Relationship Specialty Start Date End Date Orlin Chambers MD [address] [address] PCP - General Family Medicine 01/29/19 08/16/23 Juma Harrington [facility] Pulmonary Medicine 11/23/21 documented as of this encounter
--- OUTSIDE RECORDS SUMMARY | 2024-10-20 12:08 | XMS_ITS | Encounter Summary ---
Author Organization [facility] Address [address] [place] [address] Care Team Providers Care Custom Dressmaker Name Role Phone Orlin Chambers MD Primary Care Provider [phone] Encounter Details Date Type Department Care Team (Late st Contact Info) Description 10/06/2022 Scanned Document [facility] [address] [place] [address] [facility] [address] [address] Social History Tobacco Use Types Packs/Day Years [...] on filedocumented in this encounter Care Teams Custom Dressmaker Relationship Specialty Start Date End Date Orlin Chambers MD [address] [address] PCP - General Family Medicine 01/29/19 08/16/23 Juma Harrington [facility] Pulmonary Medicine 11/23/21 documented as of this encounter
--- OUTSIDE RECORDS SUMMARY | 2024-10-20 12:08 | XMS_ITS | Encounter Summary ---
Author Organization [facility] Address [address] [place] [address] Care Team Providers Care Coding Technician Name Role Phone Orlin Chambers MD Primary Care Provider [phone] Reason for Visit * Reason Onset Date Comments Medication Refill 04/10/2023 Encounter Details Date Type Department Care Team (Late st Contact Info) Description 04/10/2023 Refill [facility] [address] [place] [address] 203 [place] [address] Orlin Chambers MD 100 [facility] Liam 203 [place], [place] [phone] Insomnia, unspecified type Social History Tobacco Use [...] type documented in this encounter Care Teams Coding Technician Relationship Specialty Start Date End Date Orlin Chambers MD 100 [place] [address] PCP - General Family Medicine 01/29/19 08/16/23 Juma Harrington [facility] Pulmonary Medicine 11/23/21 documented as of this encounter
--- OUTSIDE RECORDS SUMMARY | 2024-10-20 12:08 | XMS_ITS | Encounter Summary ---
Author Organization [facility] Address [address] [place] [address] Care Team Providers Care Stand Up Comedian Name Role Phone Orlin Chambers MD Primary Care Provider Encounter Details Date Type Department Care Team (Late st Contact Info) Description 08/29/2022 Scanned Document [facility] ORTHO SURGERY SCAN [place] [address] [address] Social History Tobacco Use Types Packs/Day Years [...] on filedocumented in this encounter Care Teams Stand Up Comedian Relationship Specialty Start Date End Date Orlin Chambers MD [address] [place] [address] 203 [place] [address] PCP - General Family Medicine 01/29/19 08/16/23 Juma Harrington [facility] Pulmonary Medicine 11/23/21 documented as of this encounter
--- OUTSIDE RECORDS SUMMARY | 2024-10-20 12:08 | XMS_ITS | Encounter Summary ---
Author Organization [facility] Address [address] [place] [address] Care Team Providers Care Business Office Associate Name Role Phone Orlin Chambers MD Primary Care Provider [phone] Reason for Visit * Reason Comments Medication Refill Encounter Details Date Type Department Care Team (Late st Contact Info) Description 10/09/2022 Refill [facility] 10 100 [facility] [address] [place] [address] Anayeli Del Rosario APRN 100 [facility] Liam 203 [place], [place] [phone] Anxiety Social History Tobacco Use Types Packs/Day [...] unspecified documented in this encounter Care Teams Business Office Associate Relationship Specialty Start Date End Date Orlin Chambers MD [address] [address] PCP - General Family Medicine 01/29/19 08/16/23 Juma Harrington [facility] Pulmonary Medicine 11/23/21 documented as of this encounter
--- OUTSIDE RECORDS SUMMARY | 2024-10-20 12:08 | XMS_ITS | Encounter Summary ---
Author Organization [facility] Address [address] [place] [address] Care Team Providers Care Senior Buyer Planner Name Role Phone Orlin Chambers MD Primary Care Provider [phone] Reason for Visit * Reason Comments Medication Refill Encounter Details Date Type Department Care Team (Late st Contact Info) Description 04/10/2023 Refill [facility] [address] [address] Orlin Chambers MD 100 [facility] Liam 203 [place] [address] Insomnia, unspecified type Social History Tobacco Use [...] type documented in this encounter Care Teams Senior Buyer Planner Relationship Specialty Start Date End Date Orlin Chambers MD 100 [place] [address] PCP - General Family Medicine 01/29/19 08/16/23 Juma Harrington [facility] Pulmonary Medicine 11/23/21 documented as of this encounter
--- OUTSIDE RECORDS SUMMARY | 2024-10-20 12:08 | XMS_ITS | Encounter Summary ---
Author Organization [facility] Address [address] [place] [address] Care Team Providers Care Rent Control Office Manager Name Role Phone Orlin Chambers MD Primary Care Provider [phone] Encounter Details Date Type Department Care Team (Late st Contact Info) Description 02/27/2023 Scanned Document [facility] EMERGENCY MED SCAN Emergency Medicine, [...] on filedocumented in this encounter Care Teams Rent Control Office Manager Relationship Specialty Start Date End Date Orlin Chambers MD [address] [place] [address] PCP - General Family Medicine 01/29/19 08/16/23 Juma Harrington [facility] Pulmonary Medicine 11/23/21 documented as of this encounter
--- OUTSIDE RECORDS SUMMARY | 2024-10-20 12:08 | XMS_ITS | Encounter Summary ---
Author Organization [facility] Address [address] [place] [address] Care Team Providers Care Freelance Translator Name Role Phone Orlin Chambers MD Primary Care Provider [phone] Reason for Visit * Reason Comments Medication Refill Encounter Details Date Type Department Care Team (Late st Contact Info) Description 04/12/2023 Refill [facility] [address] [address] Orlin Chambers MD 100 [facility] Liam 203 [place] [address] Insomnia, unspecified type Social History Tobacco Use [...] type documented in this encounter Care Teams Freelance Translator Relationship Specialty Start Date End Date Orlin Chambers MD 100 [place] [address] PCP - General Family Medicine 01/29/19 08/16/23 Juma Harrington [facility] Pulmonary Medicine 11/23/21 documented as of this encounter
--- OUTSIDE RECORDS SUMMARY | 2024-10-20 12:08 | XMS_ITS | Encounter Summary ---
Author Organization [facility] Address [address] [place] [address] Care Team Providers Care Ground School Instructor Name Role Phone Orlin Chambers MD Primary Care Provider Encounter Details Date Type Department Care Team (Late st Contact Info) Description 10/06/2022 Scanned Document [facility] ORTHO SURGERY SCAN [place], [facility] [address] [address] Social History Tobacco Use Types Packs/Day Years [...] on filedocumented in this encounter Care Teams Ground School Instructor Relationship Specialty Start Date End Date Orlin Chambers MD [address] [place] [address] 203 [place] [address] PCP - General Family Medicine 01/29/19 08/16/23 Juma Harrington [facility] Pulmonary Medicine 11/23/21 documented as of this encounter
--- OUTSIDE RECORDS SUMMARY | 2024-10-20 12:09 | XMS_ITS | Encounter Summary ---
Author Organization [facility] Address [address] [place] [address] Care Team Providers Care Lead Android Developer Name Role Phone Orlin Chambers MD Primary Care Provider [phone] Encounter Details Date Type Department Care Team (Late st Contact Info) Description 10/18/2020 Scanned Document [facility] 10 100 [facility] 203 [place] [address] Michael Sweeney MD [address] [place] [address] 201 [place] [address] Social History Tobacco Use Types Packs/Day Years [...] filedocumented in this encounter Care Teams Lead Android Developer Relationship Specialty Start Date End Date Orlin Chambers MD 100 [facility] Liam 203 [place], [place] [phone] PCP - General Family Medicine 01/29/19 08/16/23 Juma Harrington [facility] Pulmonary Medicine 11/23/21 documented as of this encounter
--- OUTSIDE RECORDS SUMMARY | 2024-10-20 12:09 | XMS_ITS | Encounter Summary ---
Author Organization [facility] Address [address] [place] [address] Care Team Providers Care Workforce Management Coordinator Name Role Phone Orlin Chambers MD Primary Care Provider [phone] Reason for Visit * Reason Onset Date Comments Medication Refill 11/10/2022 Encounter Details Date Type Department Care Team (Late st Contact Info) Description 11/10/2022 Refill [facility] [address] [place] [address] 203 [place] [address] Orlin Chambers MD 100 [facility] Liam 203 [place], [place] [phone] Insomnia, unspecified type Social History Tobacco Use [...] type documented in this encounter Care Teams Workforce Management Coordinator Relationship Specialty Start Date End Date Orlin Chambers MD 100 [place] [address] PCP - General Family Medicine 01/29/19 08/16/23 Juma Harrington [facility] Pulmonary Medicine 11/23/21 documented as of this encounter
--- OUTSIDE RECORDS SUMMARY | 2024-10-20 12:09 | XMS_ITS | Clinical Summary ---
Author Organization [facility] Address [address] [place] [address] Care Team Providers Care Piped Buttonhole Machine Operator Name Role Phone Unavailable Primary Care Provider [...] Urine, Random (06/06/2022 8:55 AM EST) Pathologist [facility] Creatinine, Urine, Random 242 20 - 320 mg/dL [facility] Microalbumin, Urine, Random 12.1 See Note: mg/dL [facility] Comment: Reference Range: Reference Range Not established Microalbumin/Creat inine Ratio 50(H) <30 mcg/mg creat [facility] Comment: The ADA defines abnormalities in albumin [...] FASTING: YES Orlin Chambers MD URINE ORDERABLES [facility] [address] [place] [address], [place] [address] * (ABNORMAL) Hemoglobin A1c (06/06/2022 8:55 AM EST) Hemoglobin A1C 6.5(H) <5.7 % of total Hgb [facility] Comment: For someone without known diabetes, a [...] MD LAB BLOOD ORDERABLES Performing Organization Address City/[facility]/ZIP Co de Phone Number [facility] [address] [phone] * (ABNORMAL) Basic Metabolic Panel (06/06/2022 8:55 AM EST) Glucose 129(H) 65 - 99 mg/dL [facility] Comment: ? Fasting reference interval For someone without known diabetes, a glucose value >125 mg/dL indicates that they may have diabetes and this should be confirmed with a follow-up test. Blood Urea Nitrogen (BUN) 33(H) 7 - 25 mg/dL [facility] Creatinine 1.49(H) 0.70 - 1.30 mg/dL [facility] Creatinine w/ eGFR 54(L) > OR = 60 mL/min/1.7 3m2 [facility] Comment: The eGFR is based on the CKD-EPI 2020 equation. To calculate the new eGFR from a previous Creatinine or Cystatin C result, go to https://www.kidney.org/professionals/ kdoqi/gfr%5Fcalculator BUN/Creatinine Ratio 22 6 - 22 (calc) [facility] Sodium 139 135 - 146 mmol/L [facility] Potassium 4.1 3.5 - 5.3 mmol/L [facility] Chloride 102 98 - 110 mmol/L [facility] CO2 27 20 - 32 mmol/L [facility] Calcium 9.5 8.6 - 10.3 mg/dL [facility] Blood specimen (specimen) 06/06/2022 8:55 AM EST 06/06/2022 8:55 AM EST Narrative [facility] - 06/07/2022 4:59 PM EST FASTING:YES FASTING: YES Orlin Chambers MD LAB BLOOD ORDERABLES Performing Organization Address City/[facility]/ZIP Co de Phone Number [facility] [address], [place] [address] * (ABNORMAL) Lipid Panel [facility] LDL (12/07/2021 8:13 AM EDT) Cholesterol, Total 191 <200 mg/dL [facility] Cholesterol, HDL 48 > OR = 40 mg/dL [facility] Triglycerides 237(H) <150 mg/dL [facility] Comment: If a non-fasting specimen was collected, consider repeat triglyceride testing on a fasting specimen if clinically indicated. Chris et al. J. of Clin. Lipidol. 2015;9:129-169. LDL Cholesterol 107(H) mg/dL (calc) [facility] Comment: Reference range: <100 Desirable range <100 mg/dL for primary prevention; ?? <70 mg/dL for patients with CHD or diabetic patients with > or = 2 CHD risk factors. LDL-C is now calculated using the Michael-Rosario calculation, which is a validated novel method providing better accuracy than the Friedewald equation in the estimation of LDL-C. Michael SS et al. ELSY. 2013;310(19): 8746-4949 (http://education.Crew/faq/IWS515) Cholesterol/HDL Ratio 4.0 <5.0 (calc) [facility] Non HDL Chol. (LDL+VLDL) 143(H) <130 mg/dL (calc) [facility] Comment: For patients with diabetes plus 1 major ASCVD risk factor, treating to a non-HDL-C goal of <100 mg/dL (LDL-C of <70 mg/dL) is considered a therapeutic option. Blood specimen (specimen) 12/07/2021 8:13 AM EDT 12/07/2021 8:13 AM EDT Narrative [facility] - 12/08/2021 12:09 AM EDT FASTING:YES FASTING: YES Orlin Chambers MD LAB BLOOD ORDERABLES [facility] [address], [place] [address] * CT Thorax w/o contrast (05/29/2019 9:23 [...] your patient to us, Travis Villarreal MD [id number] (Electronically Signed - 05/29/2019 09:23) Copy: ORLIN CHAMBERS DO [facility] [address] [place] [address] PATIENT , ?? Narrative 05/29/2019 9:23 AM EST EXAMINATION: CT CHEST WITHOUT CONTRAST CLINICAL INFORMATION: Left lower lobe pulmonary nodule. COMPARISON: No relevant prior studies are available for comparison. TECHNIQUE: Multidetector volumetric CT imaging of the chest was done. Axial MIP volume rendering provided. Sagittal and coronal reformatted images were obtained. DLP: 523.69 mGy-cm FINDINGS: DRAFT ROLLER PICKER: Unremarkable. LUNGS: There is a 3 mm [...] images were obtained. DLP: 523.69 mGy-cm FINDINGS: DRAFT ROLLER PICKER: Unremarkable. LUNGS: There is a 3 mm [...] interval change. According to the UPDATED 2017 [facility] recommendations, the advised follow up [...] your patient to us, Travis Villarreal MD [id number] (Electronically Signed - 05/29/2019 09:23) Copy: ORLIN CHAMBERS DO [facility] [address] [facility] [place] [address] PATIENT , Kelly Bustillo MD IMG CT ORDERABLES from Last 3 Months or Most Recently Relevant to Health Maintenance Care Teams Piped Buttonhole Machine Operator Relationship Specialty Start Date End Date Juma Harrington [facility] Pulmonary Medicine 11/23/21
--- OUTSIDE RECORDS SUMMARY | 2024-10-20 12:09 | XMS_ITS | Clinical Summary ---
[facility] Address [address] [place] [address] Care Team Providers Care French Comber Name Role Phone Orlin Chambers DO Primary Care Provider [phone] Surgical History Surgery Date Site/Laterality Comments WISDOM TOOTH EXTRACTION PROCEDURE:WISDOM TOOTH EXTRACTION KNEE ARTHROSCOPY 06/03/2019 Left PROCEDURE:KNEE ARTHROSCOPY;COMMENT:Procedure: LEFT KNEE ARTHROSCOPY, PARTIAL MEDIAL MENISCECTOMY; Surgeon: David Pack MD; Location: [facility]; Service: [facility]; Laterality: Left; Medical [...] age to complete this topic Care Teams French Comber Relationship Specialty Start Date End Date Orlin Chambers DO [address] [place] [id number] PCP - General Family Medicine 06/17/18
--- OUTSIDE RECORDS SUMMARY | 2024-10-20 12:09 | XMS_ITS | Encounter Summary ---
Author Organization [facility] Address [address] [place] [address] Care Team Providers Care Dredge Operator Name Role Phone Orlin Chambers MD Primary Care Provider [phone] Encounter Details Date Type Department Care Team (Late st Contact Info) Description 01/29/[address] [facility] [place] [address] [facility] [address] [place] [address] Provider, Hortencia, [address] [place] [address] Social History Tobacco Use Types Packs/Day Years [...] on filedocumented in this encounter Care Teams Dredge Operator Relationship Specialty Start Date End Date Orlin Chambers MD [address] [facility] [address] [place], [place] [phone] PCP - General Family Medicine 01/29/19 08/16/23 Juma Harrington [facility] Pulmonary Medicine 11/23/21 documented as of this encounter
--- OUTSIDE RECORDS SUMMARY | 2024-10-20 12:09 | XMS_ITS | Data Portability ---
Author Organization [facility], Main Office Address [address] [place] [address] Care Team Providers Care Sander Portable Machine Name Role Phone RYAN BUSTOS Primary Care [...] BMP, serum or plasm a 2013 014 [facility] Not available 4 19:52:00 Referral gastr marjorie fong ist refer ral 2015 016 jourdan [facility], [address] [place], [address], 6 11:02:[address]/di etiti an refer ral 2015 016 [facility] Not available 6 21:59:[address]/di etiti an refer ral 2013 014 [facility] Not available 4 19:52:00 Procedures colon oscop y scree farhana (PROC ) - Due for scree nign colon oscop y and has had diver tic x 2 in last 6 month s. 2014 [email or web address] [address] [place] [address], [address], 6 11:22:40 Surgeries None recor ded. Imaging elect arvin lópez am 2015 016 [facility] In-Office Order, Internal Use Only DO Not Attach Compendium DO Not Attach Compendium, Do Not Delete/merge, [id number] 6 21:59:57 Medication Orders bupro pion HCl XL 300 mg 24 hr table t, exten ded relea se 2015 016 [id number], [address], [place], [address], 6 21:59:58 omepr azole 20 mg table t,bryan ny relea se 2015 016 [id number], [address] [place], [address], 6 21:59:57 simva stati n 80 mg table t 2015 016 [id number], [address] [place], [address], 6 21:59:57 chlor thali done 25 mg table t 2015 016 [id number], [address] [place], [address], 6 21:59:57 Cipro 500 mg table t 2014 015 [email or web address] os [id number], [address] [place], [address], 6 09:13:40 metro nidaz ole 500 mg table t 2014 015 [email or web address] os [id number], [address] [place], [address], 6 09:13:40 Patient Targets Encounter Date Encounter Id Patient Goals Patient Target Last Modified By Organization Details Last Modified Time 05/12/2014 [id number] Ongoing of Microalbumin/Cr eatinine Ratio yearly Not [...] Bring meter and/or readings to your appointments [facility] Not available 05/14/2014 19:51:49 08/25/2015 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 [facility] Not available 08/25/2015 21:59:58 Patient Instructions Encounter Date Encounter Id Patient Instructions Last Modified By Organization Details Last Modified Time 05/12/2014 [id number] deciding about u sing medicines to quit smoking phelmuth Not available 05/14/2014 19:52:00 Quitting Tobacco : [facility] Not available 05/14/2014 19:52:00 low back pain: exercises pheuth Not available 05/14/2014 19:52:00 exercise program : getting started pheuth Not available 05/14/2014 19:52:00 high blood press ure: care instructions [facility] Not available 05/14/2014 19:52:00 learning about h igh blood pressure [facility] Not available 05/14/2014 19:52:00 starting a weigh t loss plan: care instructions [facility] Not available 05/14/2014 19:52:00 Nutrition Referr al and Weight Management Follow-up Information [facility] Not available 05/14/2014 19:52:00 Medications were reviewed at this visit and reconciled. Changes in the active medications are reflected in the current medication list and discussed with patient (or caregiver) with instructions for follow up as needed. Printed medication list provided to the patient as part of the visit summary. [facility] Not available 05/14/2014 19:51:49 11/02/2014 [id number] diverticulitis: care instructions [email or web address] Not available 11/02/2014 10:30:33 learning about diverticulosis and diverticulitis Not available 11/02/2014 10:30:33 PT to FU with PC P in 1 month, beforehand if persistent of worsening pain, fever, vomiting, bloody/black stool.? ? ? [email or web address] Not available 11/02/2014 10:30:02 05/28/2015 [id number] Colon Cancer Screening [facility] [email or web address] Not available 05/31/2015 15:33:50 learning about c olon cancer phelmuth Not available 05/29/2015 12:23:20 To call or retur n for worsening or concerns [email or web address] Not available 05/28/2015 16:41:03 Go to ER if worsening abdominal pain, fever or persistent vomiting. I have reviewed the note and agree with the assessment and plan of care. phelmuth Not available 05/29/2015 12:23:21 08/25/2015 [id number] deciding about u sing medicines to quit smoking phelmuth Not available 08/25/2015 21:59:57 Quitting Tobacco : Care Instructions phelmuth Not available 08/25/2015 21:59:58 gastroesophageal reflux disease (GERD): care instructions [facility] Not available 08/25/2015 21:59:57 learning about h igh blood sugar phelm[facility] Not available 08/25/2015 21:59:57 fatigue: care [facility] Not available 08/25/2015 21:59:57 Colon Cancer Screening [facility] Not available 08/25/2015 21:59:57 learning about c olon cancer phelmuth Not available 08/25/2015 21:59:57 high blood press ure: care instructions [facility] Not available 08/25/2015 21:59:57 learning about h igh blood pressure phelmuth Not available 08/25/2015 21:59:57 starting a weigh t loss plan: care instructions [facility] Not available 08/25/2015 21:59:57 Nutrition Referr al and Weight Management Follow-up Information [facility] Not available 08/25/2015 21:59:57 Continue to emi tor home blood pressures and bring to next appointment. [facility] Not available 08/25/2015 10:11:42 Medications were reviewed at this visit and reconciled. Changes in the active medications are reflected in the current medication list and discussed with patient (or caregiver) with instructions for follow up as needed. Printed medication list provided to the patient as part of the visit summary. [facility] Not available 08/25/2015 10:11:42 Reason for Referral Controlled Area Checker/dietitian Refer ral for Body mass index 30+ - obesity Referring Physician: Ryan Bustos, Internal Medicine, Encounter Date: 05/12/2014 Referring Physician: Ryan dean, Internal Medicine, Encounter Date: 08/25/2015 Controlled Area Checker/dietitian Refer ral for Body mass index 30+ [...] DO Not Attach Compendium, Do Not Delete/merge, [id number] 08/25/2015 09:20:03 08/25/19 16 08/25/2015 elect rocar diogr am QRS Not Available In-Office Order Internal Use Only DO Not Attach Compendium DO Not Attach Compendium, Do Not Delete/merge, [id number] 08/25/2015 09:20:03 08/25/19 16 08/25/2015 elect rocar diogr am OK Interval Not Available In-Off ice Order Internal Use Only DO Not Attach Compendium DO Not Attach Compendium, Do Not Delete/merge, [id number] 08/25/2015 09:20:03 08/25/19 16 08/25/2015 elect rocar diogr am QRS Duration Not Available In-Of fice Order Internal Use Only DO Not Attach Compendium DO Not Attach Compendium, Do Not Delete/merge, [id number] 08/25/2015 09:20:03 08/25/19 16 08/25/2015 elect rocar diogr am QT Interval Not Available In-Off ice Order Internal Use Only DO Not Attach Compendium DO Not Attach Compendium, Do Not Delete/merge, [id number] 08/25/2015 09:20:03 05/12/20 14 05/12/2014 lipid panel , serum cholesterol, total 154 mg/dL (<200) Not Available [facility] (Centralized Electronic Ordering - All Locations) Patient Can Go To The Location Of Their Choice, [id number] 05/25/2014 15:11:14 05/12/20 14 05/12/2014 lipid panel , serum triglyceride 118 mg/dL (<150) Not Available [facility] (Centralized Electronic Ordering - All Locations) Patient Can Go To The Location Of Their Choice, [id number] 05/25/2014 15:11:14 05/12/20 14 05/12/2014 lipid panel , serum HDL chol 45 mg/dL (>39) Not Available [facility] (Centralized Electronic Ordering - All Locations) Patient Can Go To The Location Of Their Choice, [id number] 05/25/2014 15:11:14 05/12/20 14 05/12/2014 lipid panel , serum LDL cholesterol, calculated 85 mg/dL (0-130 ) Not Available [facility] (Centralized Electronic Ordering - All Locations) Patient Can Go To The Location Of Their Choice, [id number] 05/25/2014 15:11:14 05/12/20 14 05/12/2014 lipid panel , serum non HDL cholesterol (calc) 109 mg/dL (<160) Not Available [facility] (Centralized Electronic Ordering - All Locations) Patient Can Go To The Location Of Their Choice, [id number] 05/25/2014 15:11:14 05/12/20 14 05/12/2014 BMP, serum or plasm a glucose 89 mg/dL (70-99 ) Not Available [facility] (Centralized Electronic Ordering - All Locations) Patient Can Go To The Location Of Their Choice, [id number] 05/25/2014 15:11:13 05/12/20 14 05/12/2014 BMP, serum or plasm a BUN 21 mg/dL (6-20) high Not Available [facility] (Centralized Electronic Ordering - All Locations) Patient Can Go To The Location Of Their Choice, [id number] 05/25/2014 15:11:13 05/12/20 14 05/12/2014 BMP, serum or plasm a creatinine 1.1 mg/dL (0.7-1 .2) Not Available [facility] (Centralized Electronic Ordering - All Locations) Patient Can Go To The Location Of Their Choice, [id number] 05/25/2014 15:11:13 05/12/20 14 05/12/2014 BMP, serum or plasm a sodium 140 mmol/ L (133-1 45) Not Available [facility] (Centralized Electronic Ordering - All Locations) Patient Can Go To The Location Of Their Choice, [id number] 05/25/2014 15:11:13 05/12/20 14 05/12/2014 BMP, serum or plasm a potassium 4.3 mmol/ L (3.6-5 .2) Not Available [facility] (Centralized Electronic Ordering - All Locations) Patient Can Go To The Location Of Their Choice, [id number] 05/25/2014 15:11:13 05/12/20 14 05/12/2014 BMP, serum or plasm a chloride 99 mmol/ L (98-10 7) Not Available [facility] (Centralized Electronic Ordering - All Locations) Patient Can Go To The Location Of Their Choice, [id number] 05/25/2014 15:11:13 05/12/20 14 05/12/2014 BMP, serum or plasm a bicarbonate 30 mmol/ L (22-29 ) high Not Available [facility] (Centralized Electronic Ordering - All Locations) Patient Can Go To The Location Of Their Choice, [id number] 05/25/2014 15:11:13 05/12/20 14 05/12/2014 BMP, serum or plasm a anion gap 11 (4-17) Not Available [facility] (Centralized Electronic Ordering - All Locations) Patient Can Go To The Location Of Their Choice, [id number] 05/25/2014 15:11:13 05/12/20 14 05/12/2014 BMP, serum or plasm a calcium 9.9 mg/dL (8.6-1 0.5) Not Available [facility] (Centralized Electronic Ordering - All Locations) Patient Can Go To The Location Of Their Choice, [id number] 05/25/2014 15:11:13 05/12/20 14 05/12/2014 BMP, serum [...] Go To The Location Of Their Choice, [id number] 05/25/2014 15:11:13 05/12/20 14 05/12/2014 BMP, serum [...] Go To The Location Of Their Choice, [id number] 05/28/2015 19:59:07 05/28/2005/28/2015 CBC w/ auto diff [...] resul t No observ ation record ed. [facility] Not Available 2015 09:50:37 08/25/19 16 carol lópez am No observ ation record ed. [facility] Not Available 2015 09:41:39 Result Notes None recorded. Problems Name Problem SNOMED Code Status Onset Date Resolution Date Notes Provider Name and Address Organization Details Recorded Time Sprains and strains of joints and adjacent muscles Completed 201102/19/2014 RECORDED 04/23/20 12 9:33AM BY DIXON HOLLAND MA, ANNOTATI ON/ADDEN DUM BLAYNE Hurtado, [facility] 6 09:33:55 Bicipita l tenosyno vitis [id number] Completed 201202/19/2014 IMPRESSI ON: AT ATTACHME NT AT ELBOW. CONTINUE ALEVE; RECORDED 10/24/19 13 10:00AM BY HIEN MANNING MA, ANNOTATI ON/ADDEN DUM BLAYNE Hurtado, [facility] 6 09:33:55 Carpal tunnel syndrome 35426678 Active 2013 BLAYNE Hurtado, [facility] 6 09:33:55 Chest pain 56139294 Completed 201102/19/2014 RECORDED 04/23/20 12 9:33AM BY DIXON HOLLAND MA, ANNOTATI ON/ADDEN DUM BLAYNE Hurtado, [facility] 6 09:33:55 Closed fracture of lower end of radius AND ulna 20664888 Completed 200802/19/2014 RECORDED 05/20/20 09 8:20AM BY RYAN BUSTOS MD, ANNOTATI ON/ADDEN DUM BLAYNE Hurtado, [facility] 6 09:33:55 Disorder of kidney and/or ureter 765893195 Completed 200802/19/2014 IMPRESSI ON: CREATINI NE 1.4 (11/2006) ; RECORDED 05/20/20 09 8:20AM BY RYAN BUSTOS MD, ANNOTJEANNIE ON/ADDEN DUM BLAYNE Hurtado, [facility] 6 09:33:55 Edema 467379477 Completed 200802/19/2014 RECORDED 05/20/20 09 7:44AM BY HIEN MANNING MA, ANNOTATI ON/ADDEN DUM BLAYNE Hurtado, [facility] 6 09:33:55 Influenz a vaccine needed [id number] 06 Completed 201102/19/2014 RECORDED 03/19/20 12 8:37AM BY NADYA CAMILO, OFFICE VISIT BLAYNE Hurtado, [facility] 6 09:33:55 Follow-u p encounte r Completed 201102/19/2014 RECORDED 03/19/20 12 8:24AM BY LETTY LUNA ON/ADDEN DUM BLAYNE Hurtado, [facility] 6 09:33:55 Adult health examinat ion Completed 201102/19/2014 RECORDED 04/23/20 12 9:33AM BY DIXON HOLLAND MA, ANNOTATI ON/ADDEN DUM BLAYNE Hurtado, [facility] 6 09:33:55 General examinat ion of patient Completed 200702/19/2014 RECORDED 07/14/20 08 7:03AM BY LETTY FU ON/ADDEN DUM BLAYNE Hurtado, [facility] 6 09:33:55 Hypercho lesterol emia 28186387 Completed 201202/19/2014 RECORDED 11/26/19 13 1:46PM BY DIXON HOLLAND MA ANNOTJEANNIE ON/ADDEN DUM HienBLAYNE Sloan [facility] 6 09:33:54 Hypersom donis 56450064 Completed 201102/19/2014 RECORDED 06/18/20 12 7:23AM BY LETTY BERNAL ON[facility] 6 09:33:55 Epidermo id cyst of skin 811460640 Completed 201102/19/2014 RECORDED 03/19/20 12 8:24AM BY LETTY LUNA ON/ADDEN [facility]UM [facility] 6 09:33:55 Renewal of prescrip tion Completed 201202/19/2014 RECORDED 11/26/19 13 1:46PM BY DIXON HOLLAND MA, LETTY ON/ADDEN DUM [facility] 6 09:33:55 Administ ration of bacteria l and viral vaccine Completed 200702/19/2014 RECORDED 03/31/20 08 7:18AM BY HIEN MANNING MA, OFFICE VISIT [facility] 6 09:33:55 Hyperhid rosis 940701688 Completed 201102/19/2014 RECORDED 04/23/20 12 9:33AM BY DIXON HOLLAND MA, LETTY ON/ADDEN DUM [facility] 6 09:33:55 Tobacco user [id number] Completed 201102/19/2014 RECORDED 03/19/20 12 8:24AM BY LETTY LUNA ON/ADDEN DUM BLAYNE Hurtado, [facility] 6 09:33:55 Sprain of foot 82427858 Completed 201102/19/2014 RECORDED 03/19/20 12 8:24AM BY LETTY LUNA ON/ADDEN DUM [facility] 6 09:33:55 Sprains and strains of joints and adjacent muscles Completed 201102/20/2014 RECORDED 04/23/20 12 9:33AM BY DIXON HOLLAND MA, LETTY ON/ADDEN DUM BLAYNE Hurtado, [facility] 6 09:33:55 Bicipita l tenosyno vitis 20974517 Completed 201202/20/2014 IMPRESSI ON: AT ATTACHME NT AT ELBOW. CONTINUE ALEVE; RECORDED 10/24/19 13 10:00AM BY HIEN MANNING MA, LETTY ON/ADDEN DUM BLAYNE Hurtado, [facility] 6 09:33:55 Chest pain 27840280 Completed 201102/20/2014 RECORDED 04/23/20 12 9:33AM BY DIXON HOLLAND MA, LETTY ON/ADDEN [facility] 6 09:33:55 Closed fracture of lower end of radius AND ulna 69226530 Completed 200802/20/2014 RECORDED 05/20/20 09 8:20AM BY RYAN BUSTOS MD, LETTY ON/ADDEN DUM BLAYNE Hurtado, [facility] 6 09:33:55 Disorder of kidney and/or ureter 975010695 Completed 200802/20/2014 IMPRESSI ON: CREATINI NE 1.4 (11/2006) ; RECORDED 05/20/20 09 8:20AM BY RYAN BUSTOS MD, ANNOTJEANNIE ON/ADDEN DUM BLAYNE Hurtado, [facility] 6 09:33:55 Edema 578913517 Completed 200802/20/2014 RECORDED 05/20/20 09 7:44AM BY HIEN MANNING MA, ANNOTATI ON/ADDEN DUM Hien Nicole-M BLAYNE rico, [facility] 6 09:33:55 Influenz a vaccine needed [id number] 06 Completed 201102/20/2014 RECORDED 03/19/20 12 8:37AM BY NADYA CAMILO, OFFICE VISIT BLAYNE Hurtado, [facility] 6 09:33:55 Follow-u p encounte r Completed 201102/20/2014 RECORDED 03/19/20 12 8:24AM BY LETTY LUNA ON/ADDEN DUM [facility]ien Rivera[facility] 6 09:33:55 Adult health examinat ion Completed 201102/20/2014 RECORDED 04/23/20 12 9:33AM BY DIXON HOLLAND MA, ANNOTATI ON/ADDEN DUM [facility] 6 09:33:55 General examinat ion of patient Completed 200702/20/2014 RECORDED 07/14/20 08 7:03AM BY LETTY FU ON/ADDEN DUM Hien Nicole-BLAYNE Humphrey, [facility] 6 09:33:55 Hypercho lesterol emia 70261760 Completed 201202/20/2014 RECORDED 11/26/19 13 1:46PM BY DIXON HOLLAND MA, ANNOTATI ON/ADDEN DUM Hien Nicole[facility] 6 09:33:54 Hypersom donis 54978329 Completed 201102/20/2014 RECORDED 06/18/20 12 7:23AM BY LETTY BERNAL ON/ADDBLAYNE Neri, [facility] 6 09:33:55 Epidermo id cyst of skin 433144654 Completed 201102/20/2014 RECORDED 03/19/20 12 8:24AM BY LETTY LUNA ON/ADDEN DUM BLAYNE Hurtado, [facility] 6 09:33:55 Renewal of prescrip tion Completed 201202/20/2014 RECORDED 11/26/19 13 1:46PM BY DIXON HOLLAND MA, LETTY ON/ADDEN DUM BLAYNE Hurtado, [facility] 6 09:33:55 Administ ration of bacteria l and viral vaccine Completed 200702/20/2014 RECORDED 03/31/20 08 7:18AM BY HIEN MANNING MA, OFFICE VISIT BLAYNE Hurtado, [facility] 6 09:33:55 Hyperhid rosis 616294730 Completed 201102/20/2014 RECORDED 04/23/20 12 9:33AM BY DIXON HOLLAND MA, LETTY ON/ADDEN DUM [facility] 6 09:33:55 Tobacco user [id number] Completed 201102/20/2014 RECORDED 03/19/20 12 8:24AM BY LETTY LUNA ON/ADDEN DUM BLAYNE Hurtado, [facility] 6 09:33:55 Sprain of foot 24225118 Completed 201102/20/2014 RECORDED 03/19/20 12 8:24AM BY LETTY LUNA ON/ADDEN DUM BLAYNE Hurtado, [facility] 6 09:33:55 Body mass index 30+ - obesity 513261409 Active BLAYNE Hurtado, [facility] 6 09:33:55 Low back pain 171902889 Active Hien rico BLAYNE nagel, [facility] 6 09:33:55 Divertic ulitis of colon 425190614 Active Hien rico BLAYNE nagel, [facility] 6 09:33:55 Fatigue 97894911 Active Hienlynette rico BLAYNE nagel, [facility] 6 09:33:55 Hypergly cemia 34573619 Active Hien rico BLAYNE shona, [facility] 6 09:33:55 Sprains and strains of joints and adjacent muscles Completed 201101/27/2014 RECORDED 04/23/20 12 9:33AM BY DIXON HOLLAND MA, ANNOTATI ON/ADDEN DUM Hien rico BLAYNE shona, [facility] 6 09:33:55 Acute prostati tis 54225667 Active 2013 IMPRESSI ON: WE DISCUSSE D [...] HIEN MANNING MA, OFFICE VISIT BLAYNE Hurtado, [facility] 6 09:33:55 Bicipita l nonaosyno vitis 65738937 Completed 201201/27/2014 IMPRESSI ON: AT ATTACHME NT AT ELBOW. CONTINUE ALEVE; RECORDED 10/24/19 13 10:00AM BY HIEN MANNING MA, ANNOTATI ON/ADDEN DUM BLAYNE Hurtado, [facility] 6 09:33:55 Biliuria 88623750 Active 2013 BLAYNE Hurtado, [facility] 6 09:33:55 Carpal tunnel syndrome 78608030 Completed 200801/27/2014 RECORDED 05/20/20 09 8:20AM BY RYAN BUSTOS MD, ANNOTATI ON/ADDEN DUM BLAYNE Hurtado, [facility] 6 09:33:55 Chest pain 56422495 Completed 201101/27/2014 RECORDED 04/23/20 12 9:33AM BY DIXON HOLLAND MA, ANNOTATI ON/ADDEN DUM BLAYNE Hurtado, [facility] 6 09:33:55 Chronic tension- type headache 600291914 Active 2013 BLAYNE Hurtado, [facility] 6 09:33:55 Closed fracture of lower end of radius AND ulna 83085676 Completed 200801/27/2014 RECORDED 05/20/20 09 8:20AM BY RYAN BUSTOS MD, ANNOTATI ON/ADDEN DUM BLAYNE Hurtado, [facility] 6 09:33:55 Depressi ve disorder 42957454 Active 2013 BLAYNE Hurtado, [facility] 6 09:33:55 Disorder of kidney and/or ureter 014920738 Completed 200801/27/2014 IMPRESSI ON: CREATINI NE 1.4 (11/2006) ; RECORDED 05/20/20 09 8:20AM BY RYAN BUSTOS MD, ANNOTATI ON/ADDEN DUM BLAYNE Hurtado, [facility] 6 09:33:55 Edema 167498116 Completed 200801/27/2014 RECORDED 05/20/20 09 7:44AM BY HIEN MANNING MA, LETTY ON/ADDEN DUM BLAYNE Hurtado, [facility] 6 09:33:55 Gastroes ophageal reflux disease 287128952 Active 2013 BLAYNE Hurtado, [facility] 6 09:33:55 Malaise and fatigue 409291459 Active 2013 BLAYNE Hurtado, [facility] 6 09:33:55 Influenz a vaccine needed [id number] 06 Completed 201101/27/2014 RECORDED 03/19/20 12 8:37AM BY NADYA CAMILO, OFFICE VISIT BLAYNE Hurtado, [facility] 6 09:33:55 Follow-u p encounte r Completed 201101/27/2014 RECORDED 03/19/20 12 8:24AM BY LETTY LUNA ON/ADDEN DUM [facility] 6 09:33:55 Adult health examinat ion Completed 201101/27/2014 RECORDED 04/23/20 12 9:33AM BY DIXON HOLLAND MA, ANNOTATI ON/ADDEN DUM BLAYNE Hurtado, [facility] 6 09:33:55 General examinat ion of patient Completed 200701/27/2014 RECORDED 07/14/20 08 7:03AM BY LETTY FU ON/ADDEN DUM BLAYNE Hurtado, [facility] 6 09:33:55 Hypercho lesterol emia 91103102 Completed 201201/27/2014 RECORDED 11/26/19 13 1:46PM BY DIXON HOLLAND MA, ANNOTATI ON/ADDEN DUM BLAYNE Hurtado, [facility] 6 09:33:54 Hyperlip idemia 15524112 Active 2013 LBAYNE Hurtado, [facility] 6 09:33:54 Hypersom donis 26787936 Completed 201101/27/2014 RECORDED 06/18/20 12 7:23AM BY LETTY BERNAL ON/ADDEN DUM BLAYNE Hurtado, [facility] 6 09:33:55 Essentia l hyperten duglas 28102760 Active 2013 BLAYNE Hurtado, [facility] 6 09:33:55 Epidermo id cyst of skin 319042100 Completed 201101/27/2014 RECORDED 03/19/20 12 8:24AM BY LETTY LUNA ON/ADDEN DUM BLAYNE Hurtado, [facility] 6 09:33:55 Insomnia 873741854 Active 2013 BLAYNE Hurtado, [facility] 6 09:33:55 Renewal of prescrip tion Completed 201201/27/2014 RECORDED 11/26/19 13 1:46PM BY DIXON HOLLAND MA, LETTY ON/ADDEN DUM BLAYNE Hurtado, [facility] 6 09:33:55 Fibromyo sitis 89568149 Active 2013 BLAYNE Hurtado, [facility] 6 09:33:55 Administ ration of bacteria l and viral vaccine Completed 200701/27/2014 RECORDED 03/31/20 08 7:18AM BY HIEN MANNING MA, OFFICE VISIT BLAYNE Hurtado, [facility] 6 09:33:55 Hyperhid rosis 461269572 Completed 201101/27/2014 RECORDED 04/23/20 12 9:33AM BY DIXON HOLLAND MA, ANNOTATI ON/ADDEN DUM BLAYNE Hurtado, [facility] 6 09:33:55 Obesity 813265526 Active 2013 STORY: RECENT INCREASE IN HIS WEIGHT.; RECORDED 01/10/20 14 1:21PM BY HIEN MANNING MA, OFFICE VISIT BLAYNE Hurtado, [facility] 6 09:33:55 Tobacco user [id number] Completed 201101/27/2014 RECORDED 03/19/20 12 8:24AM BY LETTY LUNA ON/ADDEN DUM BLAYNE Hurtado, [facility] 6 09:33:55 History of clinical finding in subject 226637245 Active 2011 BLAYNE Hurtado, [facility] 6 09:33:55 Proteinu brandon 44908822 Active 2013 BLAYNE Hurtado, [facility] 6 09:33:55 Psychose xual dysfunct ion associat ed with inhibite d libido 251447224 Active 2013 BLAYNE Hurtado, [facility] 6 09:33:55 Sprain of foot 60405777 Completed 201101/27/2014 RECORDED 03/19/20 12 8:24AM BY LETTY LUNA ON/ADDEN DUM BLAYNE Hurtado, [facility] 6 09:33:55 Tobacco dependen ce syndrome 09075130 Active 2013 Hien rico [place] null, [facility] [facility] 6 09:33:55 Problem Notes None recorded. Procedures Surgical History Date Name Laterality Status Provider Name and Address Organization Details Recorded Time 6 Colonoscopy completed Analisa Degutis [facility] 12/06/2015 16:58:34 3 Vasectomy completed [facility] 05/12/2014 08:16:32 5 Circumcision completed [facility] 05/12/2014 08:16:32 Imaging Results Imaging Date Name Status LastModified by Organization Details LastModified Time 10/30/2014 imaging/diagnostic result completed [facility] Information not available 08/25/2015 09:50:37 08/25/2015 electrocardiogram completed [facility] Informa tion not available 08/25/2015 09:41:39 Procedure Notes None recorded. Medical Equipment None Reported. Allergies Allergen ID Allergen Name Allergen Category Reaction Reaction Severity Criticality Documentation Date Start Date Code Code System Note Provider Name and Address Organization Details Recorded Time 1997 aspirin medicatio n nausea Not available Not available 01/27/2014 1191 RxNorm DANIS Bah [address] [address], [place], [address] [place] [address] 5 16:39:27 Medications Name Sig Start Date [...] Updated DateTime 4 97 % 97 % 31721.6 5874 g 98.1 [degF] 64 /min 31.2 kg/m2 171.45 cm 115 mm[Hg] 74 mm[Hg] Dixon Rockt [facility] [place] 4 08:21:21 Date Recorded Oxygen saturation Oxygen saturation in Arterial blood by Pulse oximetry Body weight Heart rate Body mass index (BMI) Body height Body temperature Systolic blood pressure Diastolic blood pressure Provider Name and Address Organization Details Last Updated DateTime 5 96 % 96 % 962892. 70588 g 80 /min 36.1 kg/m2 171.45 cm 97.9 [degF] 110 mm[Hg] 70 mm[Hg] Elsa Conrad MA [facility] 5 09:52:32 Date Recorded Body weight Oxygen saturation Oxygen saturation in Arterial blood by Pulse oximetry Body height Body mass index (BMI) Body temperature Heart rate Systolic blood pressure Diastolic blood pressure Provider Name and Address Organization Details Last Updated DateTime 5 971720. 02209 g 96 % 96 % 171.45 cm 36.7 kg/m2 96.3 [degF] 98 /min 117 mm[Hg] 80 mm[Hg] Elsa Conrad MA [facility] 5 16:28:18 Date Recorded Body height Body mass index (BMI) Body weight Oxygen saturation Oxygen saturation in Arterial blood by Pulse oximetry Heart rate Body temperature Systolic blood pressure Diastolic blood pressure Provider Name and Address Organization Details Last Updated DateTime 6 171.45 cm 36.3 kg/m2 043507. 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 08/25/2015 Have There Been [...] Diseases N Hyperthyroidism N Breast Cancer N Hypothyroidism N Lung Disease N COPD N Depression N Defects or Inherited Disease N Anesthesia [...] Recorded Time Tdap 8 completed Not Available Pending sale to [facility] 01/27/2014 13:31:33 Influenza, split virus, trivalent, preservative 2 completed Not Available Pending sale to [facility] 01/27/2014 13:31:33 Influenza, split virus, trivalent, PF 4 completed Not Available Pending sale to [facility] 08/02/2019 02:21:57 Past Encounters Encounter ID Performer Location Encounter Start Date Encounter Closed Date Diagnosis/Indication Diagnosis SNOMED-CT Code Diagnosis ICD10 Code Diagnosis Note [id number] autoEComm erce [address] [facility] [place] [address] 11/14/2006 00:00:00 [id number] autoEComm erce [address] [facility] [place] [address] 03/31/2008 00:00:00 [id number] [place] [address] 07/14/2008 00:00:00 [id number] [place] [address] 09/23/2008 00:00:00 [id number] [address] [place] [address] 10/09/2008 00:00:00 [id number] [address] [place] [address] 10/29/2008 00:00:00 [id number] autoEComm erce [address] [facility] [address] [place] [address] 12/24/2008 00:00:00 [id number] autoEComm erce [address] [facility] [place] [address] 02/01/2009 00:00:00 [id number] autoEComm erce [address] [facility] [place] [address] 05/20/2009 00:00:00 [id number] autoEComm erce [address] [facility] [place] [address] 08/26/2009 00:00:00 [id number] autoEComm erce [address] [facility] [place] [address] 09/30/2009 00:00:00 [id number] autoEComm erce [address] [facility] [place] [address] 12/22/2009 00:00:00 [id number] autoEComm erce [address] [facility] [place] [address] 01/24/2010 00:00:00 [id number] autoEComm erce [address] [facility] [address] [place] [address] 06/07/2010 00:00:00 [id number] autoEComm erce [address] [facility] [place] [address] 08/30/2010 00:00:00 [id number] autoEComm erce [address] [facility] [place] [address] 11/21/2011 00:00:00 [id number] autoEComm erce [address] [facility] [address] [place] [address] 03/19/2012 00:00:00 [id number] autoEComm erce [address] [facility] [place] [address] 04/23/2012 00:00:00 [id number] autoEComm erce [address] [facility] [place] [address] 06/18/2012 00:00:00 [id number] autoEComm erce [address] [facility] [place] [address] 08/19/2012 00:00:00 [id number] autoEComm erce [address] [facility] [place] [address] 11/25/2012 00:00:00 [id number] autoEComm erce [address] [facility] [place] [address] 01/09/2014 00:00:00 [id number] Main Office [address] [address] LUISANA MENDEZ, [place] [address] 05/12/2014 08:03:54 05/12/2014 09:32:08 Adult health examination 264136667 Needs infl uenza immunization 474121132 Body mass index 30+ - obesity 700141655 Tobacco de pendence syndrome 26159727 Essential hypertension 38885996 Low back pain 069547478 Hyperlipidemia 58907236 [id number] Ryan Bustos MD Main Office [address] [address] LUISA[place] MENDEZ, [place] [address] 11/02/2014 09:42:42 11/02/2014 10:19:22 Diverticulitis of colon 251839622 symptomati c improvemen t on abx, complete course of antibiotic [id number] Ryan Bustos MD Main Office [address] [address] LUISANA MENDEZ, [place] [address] 05/28/2015 16:19:08 05/28/2015 16:57:55 Diverticulitis of colon 134015799 K57.32 Patient w/ hx diverticul itis via [...] plan. Screening for malignant neoplasm of colon 486314282 Z12.11 [id number] Ryan Bustos MD Main Office [address] [address] 08/25/2015 09:09:08 08/25/2015 10:14:52 Essential hypertension 28424856 I10 Screening for malignant neoplasm of colon 700050736 Z12.11 Hyperglycemia 17280595 R 73.9 Hyperlipidemia 18021226 E78.5 Malaise and fatigue 2717 61285 R53.83 Tobacco de pendence syndrome 63217032 F17.290 Gastroesop hageal reflux disease 990721757 K21.9 Body mass index 30+ - obesity 872645394 Z68.36 Health Concerns Section Related Observation LastModified by Organization Detai ls LastModified Time None Recorded Concern Status LastModified by Organization Details LastModified Time None Recorded Advance Directives Directive N: Payers Encounter Date Sequence Insurance Name Policy Number Policy Salazar Covered Member ID Salazar Member ID Guarantor Name 05/12/2014 1 [facility] (PP[facility] [id number] Ross Mosley oks [id number] Ross Desai ks 11/02/2014 1 [facility] (PPO) [id number] Rsos Mosley oks [id number] Ross Desai ks 05/28/2015 1 [facility] (PPO) [id number] Ross Chatman-Praful oks [id number] Ross Desai ks 08/25/2015 1 [facility] (O) [id number] Ross Mosley [facility] [id number] Ross Desai ks Notes Date Note Type Note Provider Name and Address Organization Details Recorded Time 11/02/2014 text/html H/o LLQ abdomina l pain started 3 days ago while visiting family in [place], progressively worsened within 2 hours. He went [...] tolerating PO fluids. Ryan Bustos MD [address], [address], [facility] 11/02/2014 12:34:39 08/25/2015 text/html Notes symptoms o [...] of distressing dreams. Ryan Bustos MD [address], [address], [facility] 08/25/2015 22:00:19 08/25/2015 text/html HeadacheReported bypatient.Notes:Notes posterior [...] concerns about weight gain. Ryan Bustos MD [address] [address], [place], [address], [facility] 08/25/2015 22:00:19
--- OUTSIDE RECORDS SUMMARY | 2024-10-20 12:09 | XMS_ITS | Encounter Summary ---
Author Organization [facility] Address [address] [place] [address] Care Team Providers Care Hospital Attendant Name Role Phone Unavailable Primary Care Provider Unavailabl e Encounter Details Date Type Department Care Team ([facility] st Contact Info) Description 11/05/2023 Scanned Document [facility] CARDIOLOGY SCAN Cardiology, Scan Social History [...] on filedocumented in this encounter Care Teams Hospital Attendant Relationship Specialty Start Date End Date Juma Harrington [facility] Pulmonary Medicine 11/23/21 documented as of this encounter
--- OUTSIDE RECORDS SUMMARY | 2024-10-20 12:09 | XMS_ITS | Encounter Summary ---
Author Organization [facility] Address [address] [place] [address] Care Team Providers Care Rock Worker Name Role Phone Orlin Chambers MD Primary Care Provider [phone] Reason for Visit * Reason Comments Medication Refill Encounter Details Date Type Department Care Team (Late st Contact Info) Description 08/04/2019 Refill [facility] [address] [address] Orlin Chambers MD 100 [facility] [address] [place] [address] Insomnia, unspecified type Social History [...] type documented in this encounter Care Teams Rock Worker Relationship Specialty Start Date End Date Orlin Chambers MD [address] [address] PCP - General Family Medicine 01/29/19 08/16/23 Juma Harrington [facility] Pulmonary Medicine 11/23/21 documented as of this encounter
--- OUTSIDE RECORDS SUMMARY | 2024-10-20 12:09 | XMS_ITS | Clinical Summary ---
Author Organization [facility] Address [address] [place] [address] Care Team Providers Care Grinder Needle Tip Name Role Phone Orlin Chambers Primary Care Provider [phone] Allergies No known active allergies Medications Medication [...] age to complete this topic Care Teams Grinder Needle Tip Relationship Specialty Start Date End Date Orlin Chambers DO PCP - General Family Medicine 06/17/18
--- OUTSIDE RECORDS SUMMARY | 2024-10-20 12:09 | XMS_ITS | Encounter Summary ---
Author Organization [facility] Address [address] [place] [address] Care Team Providers Care Treatment Coordinator Name Role Phone Orlin Chambers MD Primary Care Provider [phone] Reason for Visit * Reason Onset Date Comments Medication Refill 11/13/2022 Encounter Details Date Type Department Care Team (Late st Contact Info) Description 11/13/2022 Refill [facility] [address] [place] [address] [address] [place] [address] Orlin Chambers MD 100 [facility] [address] [place], [place] [phone] Insomnia, unspecified type Social History Tobacco Use [...] type documented in this encounter Care Teams Treatment Coordinator Relationship Specialty Start Date End Date Orlin Chambers MD 100 [place] [address] PCP - General Family Medicine 01/29/19 08/16/23 Juma Harrington [facility] Pulmonary Medicine 11/23/21 documented as of this encounter
--- OUTSIDE RECORDS SUMMARY | 2024-10-20 12:09 | XMS_ITS | Encounter Summary ---
Author Organization [facility] Address [address] [place] [address] Care Team Providers Care Party Supply Specialist Name Role Phone Orlin Chambers MD Primary Care Provider [phone] Reason for Visit * Reason Comments Medication Refill Encounter Details Date Type Department Care Team (Late st Contact Info) Description 02/01/2020 Refill [facility] 10 100 [facility] [address] [place] [address] Anayeli Del Rosario, REY 100 [facility] [address] [place], [place] [phone] Anxiety Social History Tobacco Use Types Packs/Day [...] unspecified documented in this encounter Care Teams Party Supply Specialist Relationship Specialty Start Date End Date Orlin Chambers MD [address] [address] PCP - General Family Medicine 01/29/19 08/16/23 Juma Harrington [facility] Pulmonary Medicine 11/23/21 documented as of this encounter
--- OUTSIDE RECORDS SUMMARY | 2024-10-20 12:09 | XMS_ITS | Encounter Summary ---
Author Organization [facility] Address [address] [place] [address] Care Team Providers Care Cad Specialist Name Role Phone Orlin Chambers MD Primary Care Provider Encounter Details Date Type Department Care Team (Late st Contact Info) Description 05/25/2019 Scanned Document [facility] Pulmonary and Critical Care- [address] [address] Kelly Bustillo MD [address] [place] [address] Social History Tobacco Use Types Packs/Day Years [...] on filedocumented in this encounter Care Teams Cad Specialist Relationship Specialty Start Date End Date Orlin Chambers MD [address] [place] [id number] PCP - General Family Medicine 01/29/19 08/16/23 Juma Harrington [facility] Pulmonary Medicine 11/23/21 documented as of this encounter
--- OUTSIDE RECORDS SUMMARY | 2024-10-20 12:09 | XMS_ITS | Encounter Summary ---
Author Organization [facility] Address [address] [place] [address] Care Team Providers Care Wax Pattern Repairer Name Role Phone Orlin Chambers MD Primary Care Provider [phone] Reason for Visit * Reason Comments Medication Refill Encounter Details Date Type Department Care Team (Late st Contact Info) Description 11/04/2019 Refill [facility] 10 100 [facility] 203 [place] [address] Anayeli Del Rosario APRN 100 [facility] [address] [place], [place] [phone] Anxiety Social History Tobacco Use Types Packs/Day [...] unspecified documented in this encounter Care Teams Wax Pattern Repairer Relationship Specialty Start Date End Date Orlin Chambers MD [address] [address] PCP - General Family Medicine 01/29/19 08/16/23 Juma Harrington [facility] Pulmonary Medicine 11/23/21 documented as of this encounter
--- OUTSIDE RECORDS SUMMARY | 2024-10-20 12:09 | XMS_ITS | Encounter Summary ---
Author Organization [facility] Address [address] [place] [address] Care Team Providers Care Route Service Representative Name Role Phone Orlin Chambers MD Primary Care Provider Encounter Details Date Type Department Care Team (Late st Contact Info) Description 12/06/2022 Scanned Document [facility] [address] [place] [address] Cardiology, Scan Social History Tobacco Use [...] on filedocumented in this encounter Care Teams Route Service Representative Relationship Specialty Start Date End Date Orlin Chambers MD [address] [address] PCP - General Family Medicine 01/29/19 08/16/23 Juma Harrington [facility] Pulmonary Medicine 11/23/21 documented as of this encounter
--- OUTSIDE RECORDS SUMMARY | 2024-10-20 12:09 | XMS_ITS | Encounter Summary ---
Author Organization [facility] Address [address] [place] [address] Care Team Providers Care Fruit Grader Name Role Phone Orlin Chambers MD Primary Care Provider [phone] Reason for Visit * Reason Comments Medication Refill Encounter Details Date Type Department Care Team (Late st Contact Info) Description 08/04/2019 Refill [facility] 10 100 [facility] [address] [place] [address] Anayeli Del Rosario, LOCATOR SPECIALIST 100 [facility] [address] [place], [place] [phone] Hyperlipidemia, unspecified hyperlipidemia type Social History Tobacco [...] type documented in this encounter Care Teams Fruit Grader Relationship Specialty Start Date End Date Orlin Chambers MD 100 [place] [address] PCP - General Family Medicine 01/29/19 08/16/23 Juma Harrington [facility] Pulmonary Medicine 11/23/21 documented as of this encounter
--- OUTSIDE RECORDS SUMMARY | 2024-10-20 12:09 | XMS_ITS | Encounter Summary ---
Author Organization [facility] Address [address] [place] [address] Care Team Providers Care Universal Winding Machine Operator Name Role Phone Orlin Chambers MD Primary Care Provider [phone] Encounter Details Date Type Department Care Team (Late st Contact Info) Description 08/24/2020 Scanned Document [facility] [address] [place] [address] Provider, External, [address] [place] [address] Social History Tobacco Use Types Packs/Day Years [...] on filedocumented in this encounter Care Teams Universal Winding Machine Operator Relationship Specialty Start Date End Date Orlin Chambers MD 100 [place] [address] PCP - General Family Medicine 01/29/19 08/16/23 Juma Harrington [facility] Pulmonary Medicine 11/23/21 documented as of this encounter
--- OUTSIDE RECORDS SUMMARY | 2024-10-20 12:09 | XMS_ITS | Encounter Summary ---
Author Organization [facility] Address [address] [place] [address] Care Team Providers Care Drip Pumper Name Role Phone Orlin Chambers MD Primary Care Provider Encounter Details Date Type Department Care Team (Late st Contact Info) Description 01/25/2023 Scanned Document [facility] ORTHO SURGERY SCAN [place] [address] [address] Social History Tobacco Use Types Packs/Day Years [...] on filedocumented in this encounter Care Teams Drip Pumper Relationship Specialty Start Date End Date Orlin Chambers MD [address] [place] [address] 203 [place] [address] PCP - General Family Medicine 01/29/19 08/16/23 Juma Harrington [facility] Pulmonary Medicine 11/23/21 documented as of this encounter
--- OUTSIDE RECORDS SUMMARY | 2024-10-20 12:09 | XMS_ITS | Encounter Summary ---
Author Organization [facility] Address [address] [place] [address] Care Team Providers Care Kraft Mill Operator Name Role Phone Orlin Chambers MD Primary Care Provider Encounter Details Date Type Department Care Team (Late st Contact Info) Description 01/30/2023 Scanned Document [facility] ORTHO SURGERY SCAN [place] [address] [address] Social History Tobacco Use Types Packs/Day Years [...] on filedocumented in this encounter Care Teams Kraft Mill Operator Relationship Specialty Start Date End Date Orlin Chambers MD [address] [place] [address] 203 [place] [address] PCP - General Family Medicine 01/29/19 08/16/23 Juma Harrington [facility] Pulmonary Medicine 11/23/21 documented as of this encounter
--- OUTSIDE RECORDS SUMMARY | 2024-10-20 12:09 | XMS_ITS | Encounter Summary ---
Author Organization [facility] Address [address] [place] [address] Care Team Providers Care Environmental Health Aide Name Role Phone Orlin Chambers MD Primary Care Provider Encounter Details Date Type Department Care Team (Late st Contact Info) Description 06/03/2019 Scanned Document [facility] [address] [address] Provider, Generic Social History Tobacco [...] on filedocumented in this encounter Care Teams Environmental Health Aide Relationship Specialty Start Date End Date Orlin Chambers MD [address] [facility] [address] [place], [place] [phone] PCP - General Family Medicine 01/29/19 08/16/23 Juma Harrington [facility] Pulmonary Medicine 11/23/21 documented as of this encounter
--- OUTSIDE RECORDS SUMMARY | 2024-10-20 12:09 | XMS_ITS | Encounter Summary ---
Author Organization [facility] Address [address] [place] [address] Care Team Providers Care Music Executive Name Role Phone Orlin Chambers MD Primary Care Provider [phone] Encounter Details Date Type Department Care Team (Late st Contact Info) Description 02/27/2023 Scanned Document [facility] EMERGENCY MED SCAN Emergency Medicine, [...] on filedocumented in this encounter Care Teams Music Executive Relationship Specialty Start Date End Date Orlin Chambers MD [address] [place] [address] PCP - General Family Medicine 01/29/19 08/16/23 Juma Harrington [facility] Pulmonary Medicine 11/23/21 documented as of this encounter
--- OUTSIDE RECORDS SUMMARY | 2024-10-20 12:09 | XMS_ITS | Encounter Summary ---
Author Organization [facility] Address [address] [place] [address] Care Team Providers Care Rrt Name Role Phone Orlin Chambers MD Primary Care Provider [phone] Encounter Details Date Type Department Care Team (Late st Contact Info) Description 11/01/[address] [facility] ORTHO SURGERY SCAN Orthopedic Surgery, Scan Social [...] on filedocumented in this encounter Care Teams Rrt Relationship Specialty Start Date End Date Orlin Chambers MD [address] [address] PCP - General Family Medicine 01/29/19 08/16/23 Juma Harrington [facility] Pulmonary Medicine 11/23/21 documented as of this encounter
--- OUTSIDE RECORDS SUMMARY | 2024-10-20 12:09 | XMS_ITS | Clinical Summary ---
Author Organization [facility] Address [address] [place] [address] Care Team Providers Care Admissions Consultant Name Role Phone Pcp, No MD Primary [...] age to complete this topic Care Teams Admissions Consultant Relationship Specialty Start Date End Date PcpVonda MD [address] [place], [place] [id number] PCP - General Internal Medicine 02/21/21
--- OUTSIDE RECORDS SUMMARY | 2024-10-20 12:09 | XMS_ITS | Encounter Summary ---
Author Organization [facility] Address [address] [place] [address] Care Team Providers Care Strategy Associate Name Role Phone Orlin Chambers MD Primary Care Provider [phone] Reason for Visit * Reason Comments Medication Refill Encounter Details Date Type Department Care Team (Late st Contact Info) Description 09/12/2019 Refill [facility] 10 100 [facility] [address] [place] [address] Anayeli Del Rosario, POPULATION GENETICIST 100 [facility] [address] [place], [place] [phone] Anxiety Social History Tobacco Use Types Packs/Day [...] unspecified documented in this encounter Care Teams Strategy Associate Relationship Specialty Start Date End Date Orlin Chambers MD [address] [address] PCP - General Family Medicine 01/29/19 08/16/23 Juma Harrington [facility] Pulmonary Medicine 11/23/21 documented as of this encounter
--- OUTSIDE RECORDS SUMMARY | 2024-10-20 12:09 | XMS_ITS | Encounter Summary ---
Author Organization [facility] Address [address] [place] [address] Care Team Providers Care Label Remover Name Role Phone Orlin Chambers MD Primary Care Provider Encounter Details Date Type Department Care Team (Late st Contact Info) Description 09/08/2020 Scanned Document [facility] [address] [place] [address] Provider, External, [address] [place] [address] Social History Tobacco Use Types Packs/Day Years [...] filedocumented in this encounter Care Teams Label Remover Relationship Specialty Start Date End Date Orlin Chambers MD 100 [place] [address] PCP - General Family Medicine 01/29/19 08/16/23 Juma Harrington [facility] Pulmonary Medicine 11/23/21 documented as of this encounter
== END 2024-10-20 10:23 | disposition home or self-care (01) ==
LOC: HO.HMGCX 10:22
PROVIDERS: PCP Physician Assistant; Visit Provider Physician Assistant
DX: R79.9 Abnormal finding of blood chemistry, unspecified (principal)
CPT/HCPCS: 76775

== ENCOUNTER → 2024-10-20 10:25 | Outpatient (BNV) | payer OTHER, SELFPAY | PROVIDERS: PCP Physician Assistant; Visit Provider Radiology Diagnostic Radiology | DX: R79.9 Abnormal finding of blood chemistry, unspecified (principal) | CPT/HCPCS: 76775 ==

== ENCOUNTER 2024-10-27 08:03 | Outpatient (REF) | payer OTHER, SELFPAY ==
--- OUTSIDE RECORDS SUMMARY | 2024-10-27 08:17 | XMS_ITS | Encounter Summary ---
Author Organization [facility] Address [address] [place] [address] Care Team Providers Care Fabricating Machine Operator Name Role Phone Orlin Chambers MD Primary Care Provider [phone] Reason for Visit * Reason Onset Date Comments Medication Refill 04/10/2023 Encounter Details Date Type Department Care Team (Late st Contact Info) Description 04/10/2023 Refill [facility] [address] [place] [address] 203 [place] [address] Orlin Chambers MD 100 [facility] Liam 203 [place], [place] [phone] Insomnia, unspecified type Social History Tobacco Use [...] type documented in this encounter Care Teams Fabricating Machine Operator Relationship Specialty Start Date End Date Orlin Chambers MD 100 [place] [address] PCP - General Family Medicine 01/29/19 08/16/23 Juma Harrington [facility] Pulmonary Medicine 11/23/21 documented as of this encounter
--- OUTSIDE RECORDS SUMMARY | 2024-10-27 08:17 | XMS_ITS | Encounter Summary ---
Author Organization [facility] Address [address] [place] [address] Care Team Providers Care Healthcare Specialist Name Role Phone Orlin Chambers MD Primary Care Provider [phone] Encounter Details Date Type Department Care Team (Late st Contact Info) Description 02/27/2023 Scanned Document [facility] EMERGENCY MED SCAN Emergency Medicine, Scan [...] on filedocumented in this encounter Care Teams Healthcare Specialist Relationship Specialty Start Date End Date Orlin Chambers MD [address] [place] [address] PCP - General Family Medicine 01/29/19 08/16/23 Juma Harrington [facility] Pulmonary Medicine 11/23/21 documented as of this encounter
--- OUTSIDE RECORDS SUMMARY | 2024-10-27 08:17 | XMS_ITS | Encounter Summary ---
Author Organization [facility] Address [address] [place] [address] Care Team Providers Care Operations Systems Specialist Name Role Phone Orlin Chambers MD Primary Care Provider [phone] Reason for Visit * Reason Onset Date Comments Medication Refill 04/12/2023 Encounter Details Date Type Department Care Team (Late st Contact Info) Description 04/12/2023 Refill [facility] [address] [place] [address] 203 [place] [address] Orlin Chambers MD 100 [facility] Liam 203 [place], [place] [phone] Insomnia, unspecified type Social History Tobacco Use [...] type documented in this encounter Care Teams Operations Systems Specialist Relationship Specialty Start Date End Date Orlin Chambers MD 100 [place] [address] PCP - General Family Medicine 01/29/19 08/16/23 Juma Harrington [facility] Pulmonary Medicine 11/23/21 documented as of this encounter
--- OUTSIDE RECORDS SUMMARY | 2024-10-27 08:17 | XMS_ITS | Encounter Summary ---
Author Organization [facility] Address [address] [place] [address] Care Team Providers Care Solid Waste Analyst Name Role Phone Orlin Chambers MD Primary Care Provider Encounter Details Date Type Department Care Team (Late st Contact Info) Description 08/29/2022 Scanned Document [facility] ORTHO SURGERY SCAN [place] [address] [address] Social History Tobacco Use Types Packs/Day Years [...] on filedocumented in this encounter Care Teams Solid Waste Analyst Relationship Specialty Start Date End Date Orlin Chambers MD [address] [place] [address] 203 [place] [address] PCP - General Family Medicine 01/29/19 08/16/23 Juma Harrington [facility] Pulmonary Medicine 11/23/21 documented as of this encounter
--- OUTSIDE RECORDS SUMMARY | 2024-10-27 08:17 | XMS_ITS | Encounter Summary ---
Author Organization [facility] Address [address] [place] [address] Care Team Providers Care Rag Cutting Machine Operator Name Role Phone Orlin Chambers [...] on filedocumented in this encounter Care Teams Rag Cutting Machine Operator Relationship Specialty Start Date End Date Orlin Chambers MD [address] [place] [address] PCP - General Family Medicine 01/29/19 08/16/23 Juma Harrington [facility] Pulmonary Medicine 11/23/21 documented as of this encounter
--- OUTSIDE RECORDS SUMMARY | 2024-10-27 08:17 | XMS_ITS | Encounter Summary ---
Author Organization [facility] Address [address] [place] [address] Care Team Providers Care Division Service Manager Name Role Phone Orlin Chambers MD Primary Care Provider [phone] Reason for Visit * Reason Comments Medication Refill Encounter Details Date Type Department Care Team (Late st Contact Info) Description 04/10/2023 Refill [facility] [address] [address] Orlin Chambers MD 100 [facility] Liam 203 [place] [address] Insomnia, unspecified type Social History Tobacco Use [...] type documented in this encounter Care Teams Division Service Manager Relationship Specialty Start Date End Date Orlin Chambers MD 100 [place] [address] PCP - General Family Medicine 01/29/19 08/16/23 Juma Harrington [facility] Pulmonary Medicine 11/23/21 documented as of this encounter
--- OUTSIDE RECORDS SUMMARY | 2024-10-27 08:17 | XMS_ITS | Encounter Summary ---
Author Organization [facility] Address [address] [place] [address] Care Team Providers Care Business Banking Manager Name Role Phone Orlin Chambers MD Primary Care Provider Encounter Details Date Type Department Care Team (Late st Contact Info) Description 09/05/2022 Scanned Document [facility] 10 100 [facility] 203 [place] [address] Orlin Chambers MD 100 [facility] 203 [place] [address] Social History Tobacco Use Types Packs/Day Years [...] on filedocumented in this encounter Care Teams Business Banking Manager Relationship Specialty Start Date End Date Orlin Chambers MD [address] [address] PCP - General Family Medicine 01/29/19 08/16/23 Juma Harrington [facility] Pulmonary Medicine 11/23/21 documented as of this encounter
--- OUTSIDE RECORDS SUMMARY | 2024-10-27 08:17 | XMS_ITS | Encounter Summary ---
Author Organization [facility] Address [address] [place] [address] Care Team Providers Care Pinmaker Name Role Phone Orlin Chambers MD Primary Care Provider [phone] Encounter Details Date Type Department Care Team (Late st Contact Info) Description 10/06/2022 Scanned Document [facility] ORTHO SURGERY SCAN [place], [facility] [address] [address] Social History Tobacco Use Types Packs/Day Years [...] on filedocumented in this encounter Care Teams Pinmaker Relationship Specialty Start Date End Date Orlin Chambers MD [address] [place] [address] 203 [place] [address] PCP - General Family Medicine 01/29/19 08/16/23 Juma Harrington [facility] Pulmonary Medicine 11/23/21 documented as of this encounter
--- OUTSIDE RECORDS SUMMARY | 2024-10-27 08:17 | XMS_ITS | Encounter Summary ---
Author Organization [facility] Address [address] [place] [address] Care Team Providers Care Oil Burner Servicer And Installer Name Role Phone Orlin Chambers MD Primary Care Provider Encounter Details Date Type Department Care Team (Late st Contact Info) Description 10/06/2022 Scanned Document [facility] [address] [place] [address] [facility] [address] [address] Social History Tobacco Use Types Packs/Day Years [...] on filedocumented in this encounter Care Teams Oil Burner Servicer And Installer Relationship Specialty Start Date End Date Orlin Chambers MD [address] [address] PCP - General Family Medicine 01/29/19 08/16/23 Juma Harrington [facility] Pulmonary Medicine 11/23/21 documented as of this encounter
--- OUTSIDE RECORDS SUMMARY | 2024-10-27 08:17 | XMS_ITS | Encounter Summary ---
Author Organization [facility] Address [address] [place] [address] Care Team Providers Care Tyre Fitter Name Role Phone Orlin Chambers MD Primary Care Provider [phone] Reason for Visit * Reason Comments Medication Refill Encounter Details Date Type Department Care Team (Late st Contact Info) Description 04/12/2023 Refill [facility] [address] [address] Orlin Chambers MD 100 [facility] Liam 203 [place] [address] Insomnia, unspecified type Social History Tobacco Use [...] type documented in this encounter Care Teams Tyre Fitter Relationship Specialty Start Date End Date Orlin Chambers MD 100 [place] [address] PCP - General Family Medicine 01/29/19 08/16/23 Juma Harrington [facility] Pulmonary Medicine 11/23/21 documented as of this encounter
--- OUTSIDE RECORDS SUMMARY | 2024-10-27 08:17 | XMS_ITS | Encounter Summary ---
Author Organization [facility] Address [address] [place] [address] Care Team Providers Care Chief Meteorologist Name Role Phone Orlin Chambers MD Primary Care Provider [phone] Reason for Visit * Reason Comments Medication Refill Encounter Details Date Type Department Care Team (Late st Contact Info) Description 10/09/2022 Refill [facility] 10 100 [facility] [address] [place] [address] Anayeli Del Rosario APRN 100 [facility] Liam 203 [place], [place] [phone] Anxiety Social History Tobacco Use Types Packs/Day [...] unspecified documented in this encounter Care Teams Chief Meteorologist Relationship Specialty Start Date End Date Orlin Chambers MD [address] [address] PCP - General Family Medicine 01/29/19 08/16/23 Juma Harrington [facility] Pulmonary Medicine 11/23/21 documented as of this encounter
--- OUTSIDE RECORDS SUMMARY | 2024-10-27 08:18 | XMS_ITS | Encounter Summary ---
Author Organization [facility] Address [address] [place] [address] Care Team Providers Care Rail Transportation Tabeler Name Role Phone Unavailable Primary Care Provider Unavailabl e Encounter Details Date Type Department Care Team ([facility] st Contact Info) Description 11/05/2023 Scanned Document [facility] CARDIOLOGY SCAN Cardiology, Scan Social History [...] on filedocumented in this encounter Care Teams Rail Transportation Tabeler Relationship Specialty Start Date End Date Juma Harrington [facility] Pulmonary Medicine 11/23/21 documented as of this encounter
--- OUTSIDE RECORDS SUMMARY | 2024-10-27 08:18 | XMS_ITS | Encounter Summary ---
Author Organization [facility] Address [address] [place] [address] Care Team Providers Care Forestry Support Specialist Name Role Phone Orlin Chambers MD Primary Care Provider [phone] Reason for Visit * Reason Comments Medication Refill Encounter Details Date Type Department Care Team (Late st Contact Info) Description 09/12/2019 Refill [facility] 10 100 [facility] [address] [place] [address] Anayeli Del Rosario, TECHNICAL SERVICES LIBRARIAN 100 [facility] Liam 203 [place], [place] [phone] Anxiety Social History Tobacco Use Types Packs/Day [...] unspecified documented in this encounter Care Teams Forestry Support Specialist Relationship Specialty Start Date End Date Orlin Chambers MD [address] [address] PCP - General Family Medicine 01/29/19 08/16/23 Juma Harrington [facility] Pulmonary Medicine 11/23/21 documented as of this encounter
--- OUTSIDE RECORDS SUMMARY | 2024-10-27 08:18 | XMS_ITS | Clinical Summary ---
Author Organization [facility] Address [address] [place] [address] Care Team Providers Care Tax Compliance Manager Name Role Phone Unavailable Primary Care [...] Random (06/06/2022 8:55 AM EST) Pathologist [facility] Creatinine, Urine, Random 242 20 - 320 mg/dL [facility] Microalbumin, Urine, Random 12.1 See Note: mg/dL [facility] Comment: Reference Range: Reference Range Not established Microalbumin/Creat inine Ratio 50(H) <30 mcg/mg creat [facility] Comment: The ADA defines abnormalities in albumin [...] FASTING: YES Orlin Chambers MD URINE ORDERABLES [facility] [address] [place] [address], [place] [address] * (ABNORMAL) Hemoglobin A1c (06/06/2022 8:55 AM EST) Hemoglobin A1C 6.5(H) <5.7 % of total Hgb [facility] Comment: For someone without known diabetes, a [...] MD LAB BLOOD ORDERABLES Performing Organization Address City/[facility] [address]/ZIP Co de Phone Number [facility] [address] [address] * (ABNORMAL) Basic Metabolic Panel (06/06/2022 8:55 AM EST) Glucose 129(H) 65 - 99 mg/dL [facility] Comment: ? Fasting reference interval For someone without known diabetes, a glucose value >125 mg/dL indicates that they may have diabetes and this should be confirmed with a follow-up test. Blood Urea Nitrogen (BUN) 33(H) 7 - 25 mg/dL [facility] Creatinine 1.49(H) 0.70 - 1.30 mg/dL [facility] Creatinine w/ eGFR 54(L) > OR = 60 mL/min/1.7 3m2 [facility] Comment: The eGFR is based on the CKD-EPI 2020 equation. To calculate the new eGFR from a previous Creatinine or Cystatin C result, go to https://www.kidney.org/professionals/ kdoqi/gfr%5Fcalculator BUN/Creatinine Ratio 22 6 - 22 (calc) [facility] Sodium 139 135 - 146 mmol/L [facility] Potassium 4.1 3.5 - 5.3 mmol/L [facility] Chloride 102 98 - 110 mmol/L [facility] CO2 27 20 - 32 mmol/L [facility] Calcium 9.5 8.6 - 10.3 mg/dL [facility] Blood specimen (specimen) 06/06/2022 8:55 AM EST 06/06/2022 8:55 AM EST Narrative [facility] - 06/07/2022 4:59 PM EST FASTING:YES FASTING: YES Orlin Chambers MD LAB BLOOD ORDERABLES Performing Organization Address City/[facility] [address]/ZIP Co de Phone Number [facility] [address], [place] [address] * (ABNORMAL) Lipid Panel [facility] LDL (12/07/2021 8:13 AM EDT) Cholesterol, Total 191 <200 mg/dL [facility] Cholesterol, HDL 48 > OR = 40 mg/dL [facility] Triglycerides 237(H) <150 mg/dL [facility] Comment: If a non-fasting specimen was collected, consider repeat triglyceride testing on a fasting specimen if clinically indicated. Chris et al. J. of Clin. Lipidol. 2015;9:129-169. LDL Cholesterol 107(H) mg/dL (calc) [facility] Comment: Reference range: <100 Desirable range <100 mg/dL for primary prevention; ?? <70 mg/dL for patients with CHD or diabetic patients with > or = 2 CHD risk factors. LDL-C is now calculated using the Michael-Rosario calculation, which is a validated novel method providing better accuracy than the Friedewald equation in the estimation of LDL-C. Michael SS et al. ELSY. 2013;310(19): 5194-3523 (http://education.Healtheo360/faq/ZGE139) Cholesterol/HDL Ratio 4.0 <5.0 (calc) [facility] Non HDL Chol. (LDL+VLDL) 143(H) <130 mg/dL (calc) [facility] Comment: For patients with diabetes plus 1 major ASCVD risk factor, treating to a non-HDL-C goal of <100 mg/dL (LDL-C of <70 mg/dL) is considered a therapeutic option. Blood specimen (specimen) 12/07/2021 8:13 AM EDT 12/07/2021 8:13 AM EDT Narrative [facility] - 12/08/2021 12:09 AM EDT FASTING:YES FASTING: YES Orlin Chambers MD LAB BLOOD ORDERABLES [facility] [address], [place] [address] * CT Thorax w/o contrast (05/29/2019 9:23 [...] your patient to us, Travis Villarreal MD [id number] (Electronically Signed - 05/29/2019 09:23) Copy: ORLIN CHAMBERS DO [facility] 10 100 [facility] [address] PATIENT , ?? Narrative 05/29/2019 9:23 AM EST EXAMINATION: CT CHEST WITHOUT CONTRAST CLINICAL INFORMATION: Left lower lobe pulmonary nodule. COMPARISON: No relevant prior studies are available for comparison. TECHNIQUE: Multidetector volumetric CT imaging of the chest was done. Axial MIP volume rendering provided. Sagittal and coronal reformatted images were obtained. DLP: 523.69 mGy-cm FINDINGS: SILVER CLEANER: Unremarkable. LUNGS: There is a 3 mm [...] images were obtained. DLP: 523.69 mGy-cm FINDINGS: SILVER CLEANER: Unremarkable. LUNGS: There is a 3 mm nodule medially within the right upper lobe(axial image 151/505). There is an adjacent 1-2 mm nodule (axial [id number]). There is an irregular 0.6 cm nodule [...] interval change. According to the UPDATED 2017 [facility] recommendations, the advised follow up imaging [...] your patient to us, Travis Villarreal MD [id number] (Electronically Signed - 05/29/2019 09:23) Copy: ORLIN CHAMBERS DO [facility] 10 100 [place] [address] PATIENT , Kelly Bustillo MD IMG CT ORDERABLES from Last 3 Months or Most Recently Relevant to Health Maintenance Care Teams Tax Compliance Manager Relationship Specialty Start Date End Date Juma Harrington [facility] Pulmonary Medicine 11/23/21
--- OUTSIDE RECORDS SUMMARY | 2024-10-27 08:18 | XMS_ITS | Encounter Summary ---
Author Organization [facility] Address [address] [place] [address] Care Team Providers Care Perinatal Educator Name Role Phone Orlin Chambers MD Primary Care Provider Reason for Visit * Reason Onset Date Comments Medication Refill 11/13/2022 Encounter Details Date Type Department Care Team (Late st Contact Info) Description 11/13/2022 Refill [facility] [address] [place] [address] 203 [place] [address] Orlin Chambers MD 100 [facility] Liam 203 [place], [place] [phone] Insomnia, unspecified type Social History Tobacco Use [...] type documented in this encounter Care Teams Perinatal Educator Relationship Specialty Start Date End Date Orlin Chambers MD 100 [place] [address] PCP - General Family Medicine 01/29/19 08/16/23 Juma Harrington [facility] Pulmonary Medicine 11/23/21 documented as of this encounter
--- OUTSIDE RECORDS SUMMARY | 2024-10-27 08:18 | XMS_ITS | Encounter Summary ---
Author Organization [facility] Address [address] [place] [address] Care Team Providers Care Lead Press Operator Name Role Phone Orlin Chambers MD Primary Care Provider [phone] Reason for Visit * Reason Comments Medication Refill Encounter Details Date Type Department Care Team (Late st Contact Info) Description 08/04/2019 Refill [facility] 10 100 [facility] [address] [place] [address] Anayeli Del Rosario, WAITSTAFF 100 [facility] Liam 203 [place], [place] [phone] Hyperlipidemia, unspecified hyperlipidemia type Social History Tobacco [...] type documented in this encounter Care Teams Lead Press Operator Relationship Specialty Start Date End Date Orlin Chambers MD 100 [place] [address] PCP - General Family Medicine 01/29/19 08/16/23 Juma Harrington [facility] Pulmonary Medicine 11/23/21 documented as of this encounter
--- OUTSIDE RECORDS SUMMARY | 2024-10-27 08:18 | XMS_ITS | Encounter Summary ---
Author Organization [facility] Address [address] [place] [address] Care Team Providers Care Voice Engineer Name Role Phone Orlin Chambers MD Primary Care Provider [phone] Reason for Visit * Reason Comments Medication Refill Encounter Details Date Type Department Care Team (Late st Contact Info) Description 08/04/2019 Refill [facility] [address] [address] Orlin Chambers MD 100 [facility] Liam 203 [place] [address] Insomnia, unspecified type Social History [...] type documented in this encounter Care Teams Voice Engineer Relationship Specialty Start Date End Date Orlin Chambers MD [address] [address] PCP - General Family Medicine 01/29/19 08/16/23 Juma Harrington [facility] Pulmonary Medicine 11/23/21 documented as of this encounter
--- OUTSIDE RECORDS SUMMARY | 2024-10-27 08:18 | XMS_ITS | Encounter Summary ---
Author Organization [facility] Address [address] [place] [address] Care Team Providers Care Pattern Worker Name Role Phone Orlin Chambers MD Primary Care Provider [phone] Reason for Visit * Reason Comments Medication Refill Encounter Details Date Type Department Care Team (Late st Contact Info) Description 11/04/2019 Refill [facility] 10 100 [facility] 203 [place] [address] Anayeli Del Rosario APRN 100 [facility] Liam 203 [place], [place] [phone] Anxiety Social History Tobacco Use Types Packs/Day [...] unspecified documented in this encounter Care Teams Pattern Worker Relationship Specialty Start Date End Date Orlin Chambers MD [address] [address] PCP - General Family Medicine 01/29/19 08/16/23 Juma Harrington [facility] Pulmonary Medicine 11/23/21 documented as of this encounter
--- OUTSIDE RECORDS SUMMARY | 2024-10-27 08:18 | XMS_ITS | Encounter Summary ---
Author Organization [facility] Address [address] [place] [address] Care Team Providers Care Home Security Professional Name Role Phone Orlin Chambers MD Primary Care Provider Encounter Details Date Type Department Care Team (Late st Contact Info) Description 06/03/2019 Scanned Document [facility] [address] [address] Provider, Generic Social History Tobacco [...] filedocumented in this encounter Care Teams Home Security Professional Relationship Specialty Start Date End Date Orlin Chambers MD 100 [facility] Liam 203 [place], [place] [phone] PCP - General Family Medicine 01/29/19 08/16/23 Juma Harrington [facility] Pulmonary Medicine 11/23/21 documented as of this encounter
--- OUTSIDE RECORDS SUMMARY | 2024-10-27 08:18 | XMS_ITS | Clinical Summary ---
Author Organization [facility] Address [address] [place] [address] Care Team Providers Care Door Cutter Name Role Phone Pcp, No MD Primary [...] age to complete this topic Care Teams Door Cutter Relationship Specialty Start Date End Date PcpVonda MD [address] [place], [place] [id number] PCP - General Internal Medicine 02/21/21
--- OUTSIDE RECORDS SUMMARY | 2024-10-27 08:18 | XMS_ITS | Encounter Summary ---
Author Organization [facility] Address [address] [place] [address] Care Team Providers Care Mime Artist Name Role Phone Orlin Chambers MD Primary Care Provider [phone] Reason for Visit * Reason Onset Date Comments Medication Refill 11/10/2022 Encounter Details Date Type Department Care Team (Late st Contact Info) Description 11/10/2022 Refill [facility] [address] [place] [address] [address] [place] [address] Orlin Chambers MD [address] [facility] [address] [place], [place] [phone] Insomnia, unspecified type Social History Tobacco Use [...] type documented in this encounter Care Teams Mime Artist Relationship Specialty Start Date End Date Orlin Chambers MD [address] [place] [address] PCP - General Family Medicine 01/29/19 08/16/23 Juma Harrington [facility] Pulmonary Medicine 11/23/21 documented as of this encounter
--- OUTSIDE RECORDS SUMMARY | 2024-10-27 08:19 | XMS_ITS | Encounter Summary ---
Author Organization [facility] Address [address] [place] [id number] Care Team Providers Care Administrative Law Judge Name Role Phone Orlin Chambers MD Primary Care Provider [phone] Encounter Details Date Type Department Care Team (Late st Contact Info) Description 01/25/2023 Scanned Document [facility] [address] [address] Social History Tobacco Use Types Packs/Day Years [...] filedocumented in this encounter Care Teams Administrative Law Judge Relationship Specialty Start Date End Date Orlin Chambers MD [address] [place] [address] [address] [place] [address] PCP - General Family Medicine 01/29/19 08/16/23 Juma Harrington [facility] Pulmonary Medicine 11/23/21 documented as of this encounter
--- OUTSIDE RECORDS SUMMARY | 2024-10-27 08:19 | XMS_ITS | Data Portability ---
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 Name Role Phone RYAN BUSTOS Primary Care Provider [phone] Assessment Encounter Date Assessment Date Assessment LastModified [...] BMP, serum or plasm a 2013 014 [facility] Not available 4 19:52:00 Referral gastr marjorie fong ist refer ral 2015 016 jourdan [facility], [address] [place], [address], 6 11:02:[address]/di etiti an refer ral 2015 016 [facility] Not available 6 21:59:[address]/di etiti an refer ral 2013 014 [facility] Not available 4 19:52:00 Procedures colon oscop y scree farhana (PROC ) - Due for scree nign colon oscop y and has had diver tic x 2 in last 6 month s. 2014 [email or web address] [address] [place] [address], [address], 6 11:22:40 Surgeries None recor ded. Imaging elect arvin lópez am 2015 016 [facility] In-Office Order, Internal Use Only DO Not Attach Compendium DO Not Attach Compendium, Do Not Delete/merge, [id number] 6 21:59:57 Medication Orders bupro pion HCl XL 300 mg 24 hr table t, exten ded relea se 2015 016 [id number], [address], [place], [address], 6 21:59:58 omepr azole 20 mg table t,bryan ny relea se 2015 016 [id number], [address] [place], [address], 6 21:59:57 simva stati n 80 mg table t 2015 016 [id number], [address] [place], [address], 6 21:59:57 chlor thali done 25 mg table t 2015 016 [id number], [address] [place], [address], 6 21:59:57 Cipro 500 mg table t 2014 015 [email or web address] os [id number], [address] [place], [address], 6 09:13:40 metro nidaz ole 500 mg table t 2014 015 [email or web address] os [id number], [address] [place], [address], 6 09:13:40 Patient Targets Encounter Date Encounter Id Patient Goals Patient Target Last Modified By Organization Details Last Modified Time 05/12/2014 [id number] Ongoing of Microalbumin/Cr eatinine Ratio yearly Not [...] Bring meter and/or readings to your appointments [facility] Not available 05/14/2014 19:51:49 08/25/2015 [id number] skilled nursing goal of Blood Pressure 140 / 90 Not available Not available Not available 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 [facility] Not available 08/25/2015 21:59:58 Patient Instructions Encounter Date Encounter Id Patient Instructions Last Modified By Organization Details Last Modified Time 05/12/2014 [id number] deciding about u sing medicines to quit smoking phelmuth Not available 05/14/2014 19:52:00 Quitting Tobacco : [facility] Not [facility] 05/14/2014 19:52:00 low back pain: exercises pheuth Not available 05/14/2014 19:52:00 exercise program : getting started pheuth Not available 05/14/2014 19:52:00 high blood press ure: care instructions [facility] Not available 05/14/2014 19:52:00 learning about h igh blood pressure [facility] Not available 05/14/2014 19:52:00 starting a weigh t loss plan: care instructions [facility] Not available 05/14/2014 19:52:00 Nutrition Referr al and Weight Management Follow-up Information [facility] Not available 05/14/2014 19:52:00 Medications were reviewed at this visit and reconciled. Changes in the active medications are reflected in the current medication list and discussed with patient (or caregiver) with instructions for follow up as needed. Printed medication list provided to the patient as part of the visit summary. [facility] Not available 05/14/2014 19:51:49 11/02/2014 [id number] diverticulitis: care instructions [email or web address] Not available 11/02/2014 10:30:33 learning about diverticulosis and diverticulitis [email or web address] Not available 11/02/2014 10:30:33 PT to FU with PC P in 1 month, beforehand if persistent of worsening pain, fever, vomiting, bloody/black stool.? ? ? [email or web address] Not available 11/02/2014 10:30:02 05/28/2015 [id number] Colon Cancer Screening [facility] [email or web address] Not available 05/31/2015 15:33:50 learning about c olon cancer phelmuth Not available 05/29/2015 12:23:20 To call or retur n for worsening or concerns [email or web address] Not available 05/28/2015 16:41:03 Go to ER if worsening abdominal pain, fever or persistent vomiting. I have reviewed the note and agree with the assessment and plan of care. phelm[facility] Not available 05/29/2015 12:23:21 08/25/2015 [id number] deciding about u sing medicines to quit smoking phelm[facility] Not available 08/25/2015 21:59:57 Quitting Tobacco : Care Instructions p[facility] Not available 08/25/2015 21:59:58 gastroesophageal reflux disease (GERD): care [facility] Not available 08/25/2015 21:59:57 learning about h igh blood sugar phelm[facility] Not available 08/25/2015 21:59:57 fatigue: care instructions [facility] issaquahlmuth Not available 08/25/2015 21:59:57 Colon Cancer Screening [facility] phelmuth Not available 08/25/2015 21:59:57 learning about c olon cancer phelmuth Not available 08/25/2015 21:59:57 high blood press ure: care instructions [facility] Not available 08/25/2015 21:59:57 learning about h igh blood pressure phelmuth Not available 08/25/2015 21:59:57 starting a weigh t loss plan: care instructions [facility] Not available 08/25/2015 21:59:57 Nutrition Referr al and Weight Management Follow-up Information [facility] Not available 08/25/2015 21:59:57 Continue to emi tor home blood pressures and bring to next appointment. [facility] Not available 08/25/2015 10:11:42 Medications were reviewed at this visit and reconciled. Changes in the active medications are reflected in the current medication list and discussed with patient (or caregiver) with instructions for follow up as needed. Printed medication list provided to the patient as part of the visit summary. [facility] Not available 08/25/2015 10:11:42 Reason for Referral Joint Filler/dietitian Refer ral for Body mass index 30+ - obesity Referring Physician: Ryan Bustos, Internal Medicine, Encounter Date: 05/12/2014 Referring Physician: Ryan dean, Internal Medicine, Encounter Date: 08/25/2015 Joint Filler/dietitian Refer ral for Body mass index 30+ [...] DO Not Attach Compendium, Do Not Delete/merge, [id number] 08/25/2015 09:20:03 08/25/19 16 08/25/2015 elect rocar diogr am QRS Not Available In-Office Order Internal Use Only DO Not Attach Compendium DO Not Attach Compendium, Do Not Delete/merge, [id number] 08/25/2015 09:20:03 08/25/19 16 08/25/2015 elect rocar diogr am OK Interval Not Available In-Off ice Order Internal Use Only DO Not Attach Compendium DO Not Attach Compendium, Do Not Delete/merge, [id number] 08/25/2015 09:20:03 08/25/19 16 08/25/2015 elect rocar diogr am QRS Duration Not Available In-Of fice Order Internal Use Only DO Not Attach Compendium DO Not Attach Compendium, Do Not Delete/merge, [id number] 08/25/2015 09:20:03 08/25/19 16 08/25/2015 elect rocar diogr am QT Interval Not Available In-Off ice Order Internal Use Only DO Not Attach Compendium DO Not Attach Compendium, Do Not Delete/merge, [id number] 08/25/2015 09:20:03 05/12/20 14 05/12/2014 lipid panel , serum cholesterol, total 154 mg/dL (<200) Not Available [facility] (Centralized Electronic Ordering - All Locations) Patient Can Go To The Location Of Their Choice, [id number] 05/25/2014 15:11:14 05/12/20 14 05/12/2014 lipid panel , serum triglyceride 118 mg/dL (<150) Not Available [facility] (Centralized Electronic Ordering - All Locations) Patient Can Go To The Location Of Their Choice, [id number] 05/25/2014 15:11:14 05/12/20 14 05/12/2014 lipid panel , serum HDL chol 45 mg/dL (>39) Not Available [facility] (Centralized Electronic Ordering - All Locations) Patient Can Go To The Location Of Their Choice, [id number] 05/25/2014 15:11:14 05/12/20 14 05/12/2014 lipid panel , serum LDL cholesterol, calculated 85 mg/dL (0-130 ) Not Available [facility] (Centralized Electronic Ordering - All Locations) Patient Can Go To The Location Of Their Choice, [id number] 05/25/2014 15:11:14 05/12/20 14 05/12/2014 lipid panel , serum non HDL cholesterol (calc) 109 mg/dL (<160) Not Available [facility] (Centralized Electronic Ordering - All Locations) Patient Can Go To The Location Of Their Choice, [id number] 05/25/2014 15:11:14 05/12/20 14 05/12/2014 BMP, serum or plasm a glucose 89 mg/dL (70-99 ) Not Available [facility] (Centralized Electronic Ordering - All Locations) Patient Can Go To The Location Of Their Choice, [id number] 05/25/2014 15:11:13 05/12/20 14 05/12/2014 BMP, serum or plasm a BUN 21 mg/dL (6-20) high Not Available [facility] (Centralized Electronic Ordering - All Locations) Patient Can Go To The Location Of Their Choice, [id number] 05/25/2014 15:11:13 05/12/20 14 05/12/2014 BMP, serum or plasm a creatinine 1.1 mg/dL (0.7-1 .2) Not Available [facility] (Centralized Electronic Ordering - All Locations) Patient Can Go To The Location Of Their Choice, [id number] 05/25/2014 15:11:13 05/12/20 14 05/12/2014 BMP, serum or plasm a sodium 140 mmol/ L (133-1 45) Not Available [facility] (Centralized Electronic Ordering - All Locations) Patient Can Go To The Location Of Their Choice, [id number] 05/25/2014 15:11:13 05/12/20 14 05/12/2014 BMP, serum or plasm a potassium 4.3 mmol/ L (3.6-5 .2) Not Available [facility] (Centralized Electronic Ordering - All Locations) Patient Can Go To The Location Of Their Choice, [id number] 05/25/2014 15:11:13 05/12/20 14 05/12/2014 BMP, serum or plasm a chloride 99 mmol/ L (98-10 7) Not Available [facility] (Centralized Electronic Ordering - All Locations) Patient Can Go To The Location Of Their Choice, [id number] 05/25/2014 15:11:13 05/12/20 14 05/12/2014 BMP, serum or plasm a bicarbonate 30 mmol/ L (22-29 ) high Not Available [facility] (Centralized Electronic Ordering - All Locations) Patient Can Go To The Location Of Their Choice, [id number] 05/25/2014 15:11:13 05/12/20 14 05/12/2014 BMP, serum or plasm a anion gap 11 (4-17) Not Available [facility] (Centralized Electronic Ordering - All Locations) Patient Can Go To The Location Of Their Choice, [id number] 05/25/2014 15:11:13 05/12/20 14 05/12/2014 BMP, serum or plasm a calcium 9.9 mg/dL (8.6-1 0.5) Not Available [facility] (Centralized Electronic Ordering - All Locations) Patient Can Go To The Location Of Their Choice, [id number] 05/25/2014 15:11:13 05/12/20 14 05/12/2014 BMP, serum [...] Go To The Location Of Their Choice, [id number] 05/25/2014 15:11:13 05/12/20 14 05/12/2014 BMP, serum [...] Go To The Location Of Their Choice, [id number] 05/28/2015 19:59:07 05/28/2005/28/2015 CBC w/ auto diff [...] resul t No observ ation record ed. [facility] Not Available 2015 09:50:37 08/25/19 16 carol lópez am No observ ation record ed. [facility] Not Available 2015 09:41:39 Result Notes None recorded. Problems Name Problem SNOMED Code Status Onset Date Resolution Date Notes Provider Name and Address Organization Details Recorded Time Sprains and strains of joints and adjacent muscles Completed 201102/19/2014 RECORDED 04/23/20 12 9:33AM BY DIXON HOLLAND MA, ANNOTATI ON/ADDEN DUM BLAYNE Hurtado, [facility] 6 09:33:55 Bicipita l tenosyno vitis 15712217 Completed 201202/19/2014 IMPRESSI ON: AT ATTACHME NT AT ELBOW. CONTINUE ALEVE; RECORDED 10/24/19 13 10:00AM BY HIEN MANNING MA, ANNOTATI ON/ADDEN DUM BLAYNE Hurtado, [facility] 6 09:33:55 Carpal tunnel syndrome 52340696 Active 2013 BLAYNE Hurtado, [facility] 6 09:33:55 Chest pain 09133234 Completed 201102/19/2014 RECORDED 04/23/20 12 9:33AM BY DIXON HOLLAND MA, ANNOTATI ON/ADDEN DUM BLAYNE Hurtado, [facility] 6 09:33:55 Closed fracture of lower end of radius AND ulna 48001295 Completed 200802/19/2014 RECORDED 05/20/20 09 8:20AM BY RYAN BUSTOS MD, ANNOTATI ON/ADDEN DUM BLAYNE Hurtado, [facility] 6 09:33:55 Disorder of kidney and/or ureter 547395607 Completed 200802/19/2014 IMPRESSI ON: CREATINI NE 1.4 (11/2006) ; RECORDED 05/20/20 09 8:20AM BY RYAN BUSTOS MD, ANNOTJEANNIE ON/ADDEN DUM BLAYNE Hurtado, [facility] 6 09:33:55 Edema 295882281 Completed 200802/19/2014 RECORDED 05/20/20 09 7:44AM BY HIEN MANNING MA, ANNOTATI ON/ADDEN DUM BLAYNE Hurtado, [facility] 6 09:33:55 Influenz a vaccine needed [id number] 06 Completed 201102/19/2014 RECORDED 03/19/20 12 8:37AM BY NADYA CAMILO, OFFICE VISIT BLAYNE Hurtado, [facility] 6 09:33:55 Follow-u p encounte r Completed 201102/19/2014 RECORDED 03/19/20 12 8:24AM BY LETTY LUNA ON/ADDEN DUM BLAYNE Hurtado, [facility] 6 09:33:55 Adult health examinat ion Completed 201102/19/2014 RECORDED 04/23/20 12 9:33AM BY DIXON HOLLAND MA, ANNOTATI ON/ADDEN DUM BLAYNE Hurtado, [facility] 6 09:33:55 General examinat ion of patient Completed 200702/19/2014 RECORDED 07/14/20 08 7:03AM BY LETTY FU ON/ADDEN DUM BLAYNE Hurtado, [facility] 6 09:33:55 Hypercho lesterol emia 50413064 Completed 201202/19/2014 RECORDED 11/26/19 13 1:46PM BY DIXON HOLLAND MA ANNOTJEANNIE ON/ADDEN DUM HienBLAYNE Sloan [facility] 6 09:33:54 Hypersom donis 80946075 Completed 201102/19/2014 RECORDED 06/18/20 12 7:23AM BY LETTY BERNAL ON/[facility] 09:[facility] Epidermo id cyst of skin 147494874 Completed 201102/19/2014 RECORDED 03/19/20 12 8:24AM BY [...] [facility] 6 09:33:55 Hyperhid rosis 168234717 Completed 201102/19/2014 RECORDED 04/23/20 12 9:33AM BY DIXON HOLLAND MA, LETTY ON/ADDEN DUM [facility] 6 09:33:[facility] Tobacco user [id number] Completed 201102/19/2014 RECORDED 03/19/20 12 8:24AM BY LETTY LUNA ON/ADDEN DUM BLAYNE Hurtado, [facility] 6 09:33:55 Sprain of foot 06358706 Completed 201102/19/2014 RECORDED 03/19/20 12 8:24AM BY LETTY LUNA ON/ADDEN [facility] 6 09:33:55 Sprains and strains of joints and adjacent muscles Completed 201102/20/2014 RECORDED 04/23/20 12 9:33AM BY DIXON HOLLAND MA, LETTY ON/ADDEN DUM BLAYNE Hurtado, [facility] 6 09:33:55 Bicipita l tenosyno vitis 45657342 Completed 201202/20/2014 IMPRESSI ON: AT ATTACHME NT AT ELBOW. CONTINUE ALEVE; RECORDED 10/24/19 13 10:00AM BY HIEN MANNING MA, LETTY ON/ADDEN DUM BLAYNE Hurtado, [facility] 6 09:33:55 Chest pain 10856527 Completed 201102/20/2014 RECORDED 04/23/20 12 9:33AM BY DIXON HOLLAND MA, LETTY ON/ADDEN DUM [facility] 6 09:33:55 Closed fracture of lower end of radius AND ulna 60704434 Completed 200802/20/2014 RECORDED 05/20/20 09 8:20AM BY RYAN BUSTOS MD, LETTY ON/ADDEN DUM BLAYNE Hurtado, [facility] 6 09:33:55 Disorder of kidney and/or ureter 686288966 Completed 200802/20/2014 IMPRESSI ON: CREATINI NE 1.4 (11/2006) ; RECORDED 05/20/20 09 8:20AM BY RYAN BUSTOS MD, ANNOTJEANNIE ON/ADDEN DUM BLAYNE Hurtado, [facility] 6 09:33:55 Edema 951086562 Completed 200802/20/2014 RECORDED 05/20/20 09 7:44AM BY HIEN MANNING MA, ANNOTATI ON/ADDEN DUM Hien Nicole-M BLAYNE rico, [facility] 6 09:33:55 Influenz a vaccine needed [id number] 06 Completed 201102/20/2014 RECORDED 03/19/20 12 8:37AM BY NADYA CAMILO, OFFICE VISIT BLAYNE Hurtado, [facility] 6 09:33:55 Follow-u p encounte r [...] LETTY FU ON/ADDEN DUM Hien Nicole-BLAYNE Humphrey, [facility] 6 09:33:55 Hypercho lesterol emia 78033618 Completed 201202/20/2014 RECORDED 11/26/19 13 1:46PM BY DIXON HOLLAND MA, ANNOTATI ON/ADDEN DUM Hien Nicole[facility] 6 09:33:54 Hypersom donis 75060798 Completed 201102/20/2014 RECORDED 06/18/20 12 7:23AM BY LETTY BERNAL ON/ADDBLAYNE Neri, [facility] 6 09:33:55 Epidermo id cyst of skin 451991062 Completed 201102/20/2014 RECORDED 03/19/20 12 8:24AM BY LETTY LUNA ON/ADDEN DUM BLAYNE Hurtado, [facility] 6 09:33:55 Renewal of prescrip tion Completed 201202/20/2014 RECORDED 11/26/19 13 1:46PM BY DIXON HOLLAND MA, LETTY ON/ADDEN DUM BLAYNE Hurtado, [facility] 6 09:33:55 Administ ration of bacteria l and viral vaccine Completed 200702/20/2014 RECORDED 03/31/20 08 7:18AM BY HIEN MANNING MA, OFFICE VISIT BLAYNE Hurtado, [facility] 6 09:33:55 Hyperhid rosis 809075122 Completed 201102/20/2014 RECORDED 04/23/20 12 9:33AM BY DIXON HOLLAND MA, LETTY ON/ADDEN [facility] 09:33:[facility] Tobacco user [id number] Completed 201102/20/2014 RECORDED 03/19/20 12 8:24AM BY LETTY LUNA ON/ADDEN DUM BLAYNE Hurtado, [facility] 6 09:33:55 Sprain of foot 21829628 Completed 201102/20/2014 RECORDED 03/19/20 12 8:24AM BY LETTY LUNA ON/ADDEN DUM BLAYNE Hurtado, [facility] 6 09:33:55 Body mass index 30+ - obesity 522819368 Active BLAYNE Hurtado, [facility] 6 09:33:55 Low back pain 344951180 Active Hien rico BLAYNE nagel, [facility] 6 09:33:55 Divertic ulitis of colon 606178124 Active Hien rico BLAYNE nagel, [facility] 6 09:33:55 Fatigue 32711289 Active Hienlynette rico BLAYNE nagel, [facility] 6 09:33:55 Hypergly cemia 45906061 Active Hien rico BLAYNE shona, [facility] 6 09:33:55 Sprains and strains of joints and adjacent muscles Completed 201101/27/2014 RECORDED 04/23/20 12 9:33AM BY DIXON HOLLAND MA, ANNOTATI ON/ADDEN DUM Hien rico BLAYNE shona, [facility] 6 09:33:55 Acute prostati tis 78789281 Active 2013 IMPRESSI ON: WE DISCUSSE D [...] HIEN MANNING MA, OFFICE VISIT BLAYNE Hurtado, [facility] 6 09:33:55 Bicipita l nonaosyno vitis 41515068 Completed 201201/27/2014 IMPRESSI ON: AT ATTACHME NT AT ELBOW. CONTINUE ALEVE; RECORDED 10/24/19 13 10:00AM BY HIEN MANNING MA, ANNOTATI ON/ADDEN DUM BLYANE Hurtado, [facility] 6 09:33:55 Biliuria 10995510 Active 2013 BLAYNE Hurtado, [facility] 6 09:33:55 Carpal tunnel syndrome 89324151 Completed 200801/27/2014 RECORDED 05/20/20 09 8:20AM BY RYAN BUSTOS MD, ANNOTATI ON/ADDEN DUM BLAYNE Hurtado, [facility] 6 09:33:55 Chest pain 10183162 Completed 201101/27/2014 RECORDED 04/23/20 12 9:33AM BY DIXON HOLLAND MA, ANNOTATI ON/ADDEN DUM BLAYNE Hurtado, [facility] 6 09:33:55 Chronic tension- type headache 578466295 Active 2013 BLAYNE Hurtado, [facility] 6 09:33:55 Closed fracture of lower end of radius AND ulna 19084831 Completed 200801/27/2014 RECORDED 05/20/20 09 8:20AM BY RYAN BUSTOS MD, ANNOTATI ON/ADDEN DUM BLAYNE Hurtado, [facility] 6 09:33:55 Depressi ve disorder 48076337 Active 2013 BLAYNE Hurtado, [facility] 6 09:33:55 Disorder of kidney and/or ureter 518012753 Completed 200801/27/2014 IMPRESSI ON: CREATINI NE 1.4 (11/2006) ; RECORDED 05/20/20 09 8:20AM BY RYAN BUSTOS MD, ANNOTATI ON/ADDEN DUM BLAYNE Hurtado, [facility] 6 09:33:55 Edema 721805589 Completed 200801/27/2014 RECORDED 05/20/20 09 7:44AM BY HIEN MANNING MA, LETTY ON/ADDEN DUM BLAYNE Hurtado, [facility] 6 09:33:55 Gastroes ophageal reflux disease 088343747 Active 2013 BLAYNE Hurtado, [facility] 6 09:33:55 Malaise and fatigue 859250719 Active 2013 BLAYNE Hurtado, [facility] 6 09:33:55 Influenz a vaccine needed 75085302631 06 Completed 201101/27/2014 RECORDED 03/19/20 12 8:37AM BY NADYA CAMILO, OFFICE VISIT BLAYNE Hurtado, [facility] 6 09:33:55 Follow-u p encounte r Completed 201101/27/2014 RECORDED 03/19/20 12 8:24AM BY LETTY LUNA ON/ADDEN DUM [facility] Adult health examinat ion Completed 201101/27/2014 RECORDED 04/23/20 12 9:33AM BY DIXON HOLLAND MA, ANNOTATI ON/ADDEN DUM BLAYNE Hurtado, [facility] 6 09:33:55 General examinat ion of patient Completed 200701/27/2014 RECORDED 07/14/20 08 7:03AM BY LETTY FU ON/ADDEN DUM BLAYNE Hurtado, [facility] 6 09:33:55 Hypercho lesterol emia 88537013 Completed 201201/27/2014 RECORDED 11/26/19 13 1:46PM BY DIXON HOLLAND MA, ANNOTATI ON/ADDEN DUM BLAYNE Hurtado, [facility] 6 09:33:54 Hyperlip idemia 41705649 Active 2013 BLAYNE Hurtado, [facility] 6 09:33:54 Hypersom donis 79018811 Completed 201101/27/2014 RECORDED 06/18/20 12 7:23AM BY LETTY BERNAL ON/ADDEN DUM BLAYNE Hurtado, [facility] 6 09:33:55 Essentia l hyperten duglas 66231096 Active 2013 BLAYNE Hurtado, [facility] 6 09:33:55 Epidermo id cyst of skin 162025915 Completed 201101/27/2014 RECORDED 03/19/20 12 8:24AM BY LETTY LUNA ON/ADDEN DUM BLAYNE Hurtado, [facility] 6 09:33:55 Insomnia 497048859 Active 2013 BLAYNE Hurtado, [facility] 6 09:33:55 Renewal of prescrip tion Completed 201201/27/2014 RECORDED 11/26/19 13 1:46PM BY DIXON HOLLAND MA, LETTY ON/ADDEN DUM BLAYNE Hurtado, [facility] 6 09:33:55 Fibromyo sitis 92666027 Active 2013 BLAYNE Hurtado, [facility] 6 09:33:55 Administ ration of bacteria l and viral vaccine Completed 200701/27/2014 RECORDED 03/31/20 08 7:18AM BY HIEN MANNING MA, OFFICE VISIT BLAYNE Hurtado, [facility] 6 09:33:55 Hyperhid rosis 984679701 Completed 201101/27/2014 RECORDED 04/23/20 12 9:33AM BY DIXON HOLLAND MA, ANNOTATI ON/ADDEN DUM BLAYNE Hurtado, [facility] 6 09:33:55 Obesity 159759955 Active 2013 STORY: RECENT INCREASE IN HIS WEIGHT.; RECORDED 01/10/20 14 1:21PM BY HIEN MANNING MA, OFFICE VISIT BLAYNE Hurtado, [facility] 6 09:33:55 Tobacco user [id number] Completed 201101/27/2014 RECORDED 03/19/20 12 8:24AM BY LETTY LUNA ON/ADDEN DUM BLAYNE Hurtado, [facility] 6 09:33:55 History of clinical finding in subject 060793539 Active 2011 BLAYNE Hurtado, [facility] 6 09:33:55 Proteinu brandon 03574139 Active 2013 BLAYNE Hurtado, [facility] 6 09:33:55 Psychose xual dysfunct ion associat ed with inhibite d libido 383425537 Active 2013 BLAYNE Hurtado, [facility] 6 09:33:55 Sprain of foot 67182996 Completed 201101/27/2014 RECORDED 03/19/20 12 8:24AM BY LETTY LUNA ON/ADDEN DUM BLAYNE Hurtado, [facility] 6 09:33:55 Tobacco dependen ce syndrome 67294726 Active 2013 Hien rico MA null, [facility] 6 09:33:55 Problem Notes None recorded. Procedures Surgical History Date Name Laterality Status Provider Name and Address Organization Details Recorded Time 6 Colonoscopy completed Analisa Degutis [facility] 12/06/2015 16:58:34 3 Vasectomy completed [facility] 05/12/2014 08:16:32 5 Circumcision completed [facility] 05/12/2014 08:16:32 Imaging Results Imaging Date Name Status LastModified by Organization Details LastModified Time 10/30/2014 imaging/diagnostic result completed [facility] Information not available 08/25/2015 09:50:37 08/25/2015 electrocardiogram completed [facility] Informa tion not available 08/25/2015 09:41:39 Procedure Notes None recorded. Medical Equipment None Reported. Allergies Allergen ID Allergen Name Allergen Category Reaction Reaction Severity Criticality Documentation Date Start Date Code Code System Note Provider Name and Address Organization Details Recorded Time 1997 aspirin medicatio n nausea Not available Not available 01/27/2014 1191 Rx[facility] DANIS Bah [address] [address], [place], [address] [place] [address] 5 16:39:27 Medications Name Sig Start Date [...] Updated DateTime 4 97 % 97 % 45529.6 5874 g 98.1 [degF] 64 /min 31.2 kg/m2 171.45 cm 115 mm[Hg] 74 mm[Hg] Dixon Rockt [facility] 4 08:21:21 Date Recorded Oxygen saturation Oxygen saturation in Arterial blood by Pulse oximetry Body weight Heart rate Body mass index (BMI) Body height Body temperature Systolic blood pressure Diastolic blood pressure Provider Name and Address Organization Details Last Updated DateTime 5 96 % 96 % 458194. 11075 g 80 /min 36.1 kg/m2 171.45 cm 97.9 [degF] 110 mm[Hg] 70 mm[Hg] Elsa Conrad MA [facility] 5 09:52:32 Date Recorded Body weight Oxygen saturation Oxygen saturation in Arterial blood by Pulse oximetry Body height Body mass index (BMI) Body temperature Heart rate Systolic blood pressure Diastolic blood pressure Provider Name and Address Organization Details Last Updated DateTime 5 935760. 67613 g 96 % 96 % 171.45 cm 36.7 kg/m2 96.3 [degF] 98 /min 117 mm[Hg] 80 mm[Hg] Elsa Conrad MA [facility] 5 16:28:18 Date Recorded Body height Body mass index (BMI) Body weight Oxygen saturation Oxygen saturation in Arterial blood by Pulse oximetry Heart rate Body temperature Systolic blood pressure Diastolic blood pressure Provider Name and Address Organization Details Last Updated DateTime 6 171.45 cm 36.3 kg/m2 030356. 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 Information not available 08/25/2015 Have There Been [...] Problems Y Arthritis N Head Injury/Concussion N Infertility N Polyps N Congenital Anomalies N Acid Reflux (GERD) [...] Recorded Time Tdap 8 completed Not Available [facility] 01/27/2014 13:31:33 Influenza, split virus, trivalent, preservative 2 completed Not Available [facility] 01/27/2014 13:31:33 Influenza, split virus, trivalent, PF 4 completed Not Available [facility] 08/02/2019 02:21:57 Past Encounters Encounter ID Performer Location Encounter Start Date Encounter Closed Date Diagnosis/Indication Diagnosis SNOMED-CT Code Diagnosis ICD10 Code Diagnosis Note [id number] autoEComm erce [address] [facility] [place] [address] 11/14/2006 00:00:00 [id number] autoEComm erce [address] [facility] [place] [address] 03/31/2008 00:00:[id number] [place] [address] 07/14/2008 00:00:00 [id number] [address]Comm [address] [place] [address] 09/23/2008 00:00:00 [id number] auto[address]Comm erce [address] [place] [address] 10/09/2008 00:00:00 [id number] autoEComm erce [address] [place] [address] 10/29/2008 00:00:00 [id number] autoEComm erce [address] [facility] [address] [place] [address] 12/24/2008 00:00:00 [id number] autoEComm erce [address] [facility] [place] [address] 02/01/2009 00:00:00 [id number] autoEComm erce [address] [facility] [place] [address] 05/20/2009 00:00:00 [id number] autoEComm erce [address] [facility] [place] [address] 08/26/2009 00:00:00 [id number] autoEComm erce [address] [facility] [place] [address] 09/30/2009 00:00:00 [id number] autoEComm erce [address] [facility] [place] [address] 12/22/2009 00:00:00 [id number] autoEComm erce [address] [facility] [place] [address] 01/24/2010 00:00:00 [id number] autoEComm erce [address] [facility] [address] [place] [address] 06/07/2010 00:00:00 [id number] autoEComm erce [address] [facility] [place] [address] 08/30/2010 00:00:00 [id number] autoEComm erce [address] [facility] [place] [address] 11/21/2011 00:00:00 [id number] autoEComm erce [address] [facility] [address] [place] [address] 03/19/2012 00:00:00 [id number] autoEComm erce [address] [facility] [place] [address] 04/23/2012 00:00:00 [id number] autoEComm erce [address] [facility] [place] [address] 06/18/2012 00:00:00 [id number] autoEComm erce [address] [facility] [place] [address] 08/19/2012 00:00:00 [id number] autoEComm erce [address] [facility] [place] [address] 11/25/2012 00:00:00 [id number] autoEComm erce [address] [facility] [place] [address] 01/09/2014 00:00:00 [id number] Main Office [address] [address] LUISANA MENDEZ, BLAYNE [address] 05/12/2014 08:03:54 05/12/2014 09:32:08 Adult health examination 055234015 Needs infl uenza immunization 463466874 Body mass index 30+ - obesity 116018990 Tobacco de pendence syndrome 17628798 Essential hypertension 34178485 Low back pain 731955293 Hyperlipidemia 33012213 [id number] Ryan Bustos MD Main Office [address] [address] LUISANA MENDEZ, BLAY[place] [address] 11/02/2014 09:42:42 11/02/2014 10:19:22 Diverticulitis of colon 024249200 symptomati c improvemen t on abx, complete course of antibiotic [id number] Ryan Bustos MD Main Office [address] [address] LUISANA MENDEZ, BLAYNE [address] 05/28/2015 16:19:08 05/28/2015 16:57:55 Diverticulitis of colon 955349775 K57.32 Patient w/ hx diverticul itis via [...] plan. Screening for malignant neoplasm of colon 903338881 Z12.11 [id number] Ryan Bustos MD Main Office [address] [address] 08/25/2015 09:09:08 08/25/2015 10:14:52 Essential hypertension 52054130 I10 Screening for malignant neoplasm of colon 231283845 Z12.11 Hyperglycemia 82399326 R 73.9 Hyperlipidemia 91432843 E78.5 Malaise and fatigue 2717 74781 R53.83 Tobacco de pendence syndrome 66168611 F17.290 Gastroesop hageal reflux disease 344224401 K21.9 Body mass index 30+ - obesity 896163970 Z68.36 Health Concerns Section Related Observation LastModified by Organization Detai ls LastModified Time None Recorded Concern Status LastModified by Organization Details LastModified Time None Recorded Advance Directives Directive N: Payers Encounter Date Sequence Insurance Name Policy Number Policy Salazar Covered Member ID Salazar Member ID Guarantor Name 05/12/2014 1 [facility] [id number] Ross Mosley oks [id number] Ross Desai ks 11/02/2014 1 [facility] (PPO[facility] [id number] Ross Mosley oks [id number] Ross Desai ks 05/28/2015 1 [facility] (PPO) [id number] Ross Chatman-Praful oks [id number] Ross Desai ks 08/25/2015 1 [facility] (O) [id number] Ross Mosley [facility] [id number] Ross Desai ks Notes Date Note Type [...] PO fluids. Ryan Bustos MD [address], [address], [facility] 11/02/2014 12:34:39 08/25/2015 text/html Notes symptoms o [...] distressing dreams. Ryan Bustos MD [address], [address], [facility] 08/25/2015 22:00:19 08/25/2015 text/html HeadacheReported bypatient.Notes:Notes posterior [...] concerns about weight gain. Ryan Bustos MD [address] [address], [place], [address], [facility] 08/25/2015 22:00:19
--- OUTSIDE RECORDS SUMMARY | 2024-10-27 08:19 | XMS_ITS | Encounter Summary ---
Author Organization [facility] Address [address] [place] [address] Care Team Providers Care Rn Trauma Name Role Phone Orlin Chambers MD Primary Care Provider [phone] Encounter Details Date Type Department Care Team [...] filedocumented in this encounter Care Teams Rn Trauma Relationship Specialty Start Date End Date Orlin Chambers MD [address] [place] [address] PCP - General Family Medicine 01/29/19 08/16/23 Juma Harrington [facility] Pulmonary Medicine 11/23/21 documented as of this encounter
--- OUTSIDE RECORDS SUMMARY | 2024-10-27 08:19 | XMS_ITS | Encounter Summary ---
Author Organization [facility] Address [address] [place] [address] Care Team Providers Care Sales And Service Advisor Name Role Phone Orlin Chambers MD Primary Care Provider [phone] Encounter Details Date Type Department Care Team (Late st Contact Info) Description 01/29/2019 Scanned Document [facility] [place] 10 100 [facility] [address] [place] [address] Provider, Hortencia, [address] [place] [address] Social History Tobacco Use Types Packs/Day Years [...] on filedocumented in this encounter Care Teams Sales And Service Advisor Relationship Specialty Start Date End Date Orlin Chambers MD 100 [facility] [address] [place], [place] [phone] PCP - General Family Medicine 01/29/19 08/16/23 Juma Harrington [facility] Pulmonary Medicine 11/23/21 documented as of this encounter
--- OUTSIDE RECORDS SUMMARY | 2024-10-27 08:19 | XMS_ITS | Encounter Summary ---
Author Organization [facility] Address [address] [place] [address] Care Team Providers Care General Office Clerk Name Role Phone Orlin Chambers MD Primary Care Provider Encounter Details Date Type Department Care Team (Late st Contact Info) Description 01/30/2023 Scanned Document [facility] ORTHO SURGERY SCAN [facility] [address] [address] Social History Tobacco Use Types Packs/Day Years [...] on filedocumented in this encounter Care Teams General Office Clerk Relationship Specialty Start Date End Date Orlin Chambers MD [address] [place] [address] 203 [place] [address] PCP - General Family Medicine 01/29/19 08/16/23 Juma Harrington [facility] Pulmonary Medicine 11/23/21 documented as of this encounter
--- OUTSIDE RECORDS SUMMARY | 2024-10-27 08:20 | XMS_ITS | Encounter Summary ---
Author Organization [facility] Address [address] [place] [address] Care Team Providers Care Director Of Manufacturing Operations Name Role Phone Orlin Chambers MD Primary Care Provider [phone] Encounter Details Date Type Department Care Team (Late st Contact Info) Description 09/08/2020 Scanned Document [facility] [address] [place] [address] Provider, External, [address] [place] [address] Social History Tobacco Use Types Packs/Day Years [...] in this encounter Care Teams Director Of Manufacturing Operations Relationship Specialty Start Date End Date Orlin Chambers MD 100 [place] [address] PCP - General Family Medicine 01/29/19 08/16/23 Juma Harrington [facility] Pulmonary Medicine 11/23/21 documented as of this encounter
--- OUTSIDE RECORDS SUMMARY | 2024-10-27 08:20 | XMS_ITS | Encounter Summary ---
Author Organization [facility] Address [address] [place] [address] Care Team Providers Care Vaccine Key Customer Leader Name Role Phone Orlin Chambers MD Primary Care Provider [phone] Encounter Details Date Type Department Care Team (Late st Contact Info) Description 12/06/2022 Scanned Document [facility] [address] [place] [address] Cardiology, Scan Social History Tobacco Use [...] on filedocumented in this encounter Care Teams Vaccine Key Customer Leader Relationship Specialty Start Date End Date Orlin Chambers MD [address] [address] PCP - General Family Medicine 01/29/19 08/16/23 Juma Harrington [facility] Pulmonary Medicine 11/23/21 documented as of this encounter
--- OUTSIDE RECORDS SUMMARY | 2024-10-27 08:20 | XMS_ITS | Encounter Summary ---
Author Organization [facility] Address [address] [place] [address] Care Team Providers Care Group President Name Role Phone Orlin Chambers MD Primary Care Provider [phone] Reason for Visit * Reason Comments Medication Refill Encounter Details Date Type Department Care Team (Late st Contact Info) Description 02/01/2020 Refill [facility] 10 100 [facility] [address] [place] [address] Anayeli Del Rosario, REY 100 [facility] [address] [place], [place] [phone] Anxiety Social History Tobacco Use Types Packs/Day [...] unspecified documented in this encounter Care Teams Group President Relationship Specialty Start Date End Date Orlin Chambers MD [address] [address] PCP - General Family Medicine 01/29/19 08/16/23 Juma Harrington [facility] Pulmonary Medicine 11/23/21 documented as of this encounter
--- OUTSIDE RECORDS SUMMARY | 2024-10-27 08:20 | XMS_ITS | Clinical Summary ---
Author Organization [employer] [facility] Address [address] [place] [address] Care Team Providers Care Ostomy Rn Name Role Phone Orlin Chambers DO Primary Care Provider [phone] Surgical History Surgery Date Site/Laterality Comments WISDOM TOOTH EXTRACTION PROCEDURE:WISDOM TOOTH EXTRACTION KNEE ARTHROSCOPY 06/03/2019 Left PROCEDURE:KNEE ARTHROSCOPY;COMMENT:Procedure: LEFT KNEE ARTHROSCOPY, PARTIAL MEDIAL MENISCECTOMY; Surgeon: David Pack MD; Location: [facility] AMBULATORY SURGERY; Service: [facility]; Laterality: [...] season) 2024 Influenza Vaccine (Season Ended) 2025 RSV Immunization Adult Patie nts (1 - [...] age to complete this topic Meningococcal B Vaccine Aged Out No l onger eligible based on patient's age to complete [...] age to complete this topic Care Teams Ostomy Rn Relationship Specialty Start Date End Date Orlin Chambers DO [address] [place] [address] PCP - General Family Medicine 06/17/18
--- OUTSIDE RECORDS SUMMARY | 2024-10-27 08:20 | XMS_ITS | Encounter Summary ---
Author Organization [facility] Address [address] [place] [address] Care Team Providers Care Master Craftsman Name Role Phone Orlin Chambers MD Primary Care Provider Encounter Details Date Type Department Care Team (Late st Contact Info) Description 08/24/2020 Scanned Document [facility] [address] [place] [address] Provider, External, [address] [place] [address] Social History Tobacco Use Types Packs/Day Years [...] on filedocumented in this encounter Care Teams Master Craftsman Relationship Specialty Start Date End Date Orlin Chambers MD 100 [place] [address] PCP - General Family Medicine 01/29/19 08/16/23 Juma Harrington [facility] Pulmonary Medicine 11/23/21 documented as of this encounter
--- OUTSIDE RECORDS SUMMARY | 2024-10-27 08:20 | XMS_ITS | Clinical Summary ---
Author Organization [facility] Address [address] [place] [address] Care Team Providers Care Paper Cone Machine Operator Name Role Phone Orlin Chambers Primary Care Provider [phone] Allergies No known active allergies Medications Medication [...] age to complete this topic Care Teams Paper Cone Machine Operator Relationship Specialty Start Date End Date Orlin Chambers DO PCP - General Family Medicine 06/17/18
--- OUTSIDE RECORDS SUMMARY | 2024-10-27 08:20 | XMS_ITS | Encounter Summary ---
Author Organization [facility] Address [address] [place] [address] Care Team Providers Care Slinger Sequins Name Role Phone Orlin Chambers MD Primary Care Provider Encounter Details Date Type Department Care Team (Late st Contact Info) Description 10/18/2020 Scanned Document [facility] [place] 10 100 [facility] 203 [place] [address] Michael Sweeney MD [address] [place] [address] 201 [place] [address] Social History Tobacco Use Types Packs/Day Years [...] on filedocumented in this encounter Care Teams Slinger Sequins Relationship Specialty Start Date End Date Orlin Chambers MD 100 [facility] [address] [place], [place] [phone] PCP - General Family Medicine 01/29/19 08/16/23 Juma Harrington [facility] Pulmonary Medicine 11/23/21 documented as of this encounter
--- OUTSIDE RECORDS SUMMARY | 2024-10-27 08:20 | XMS_ITS | Encounter Summary ---
Author Organization [facility] Address [address] [place] [address] Care Team Providers Care Health Care Liaison Name Role Phone Orlin Chambers MD Primary Care Provider [phone] Encounter Details Date Type Department Care Team (Late st Contact Info) Description 11/01/2020 Scanned Document [facility] ORTHO SURGERY SCAN Orthopedic Surgery, Scan [...] on filedocumented in this encounter Care Teams Health Care Liaison Relationship Specialty Start Date End Date Orlin Chambers MD [address] [address] PCP - General Family Medicine 01/29/19 08/16/23 Juma Harrington [facility] Pulmonary Medicine 11/23/21 documented as of this encounter
--- OUTSIDE RECORDS SUMMARY | 2024-10-27 08:20 | XMS_ITS | Encounter Summary ---
Author Organization [facility] Address [address] [place] [address] Care Team Providers Care Gun Stock Maker Name Role Phone Orlin Chambers MD Primary Care Provider [phone] Encounter Details Date Type Department Care Team (Late st Contact Info) Description 05/25/2019 Scanned Document [facility] Pulmonary and Critical Care- [address] [address] Kelly Bustillo MD [address] [place] [address] Social History Tobacco Use Types Packs/Day Years [...] on filedocumented in this encounter Care Teams Gun Stock Maker Relationship Specialty Start Date End Date Orlin Chambers MD [address] [place] [id number] PCP - General Family Medicine 01/29/19 08/16/23 Juma Harrington [facility] Pulmonary Medicine 11/23/21 documented as of this encounter
[2024-10-27 09:26] LABS: Anion Gap 14 (12-20); Blood Urea Nitrogen 30 mg/dL (9-16); Carbon Dioxide 26 mmol/L (22-29); Chloride 102 mmol/L (96-108); Estimated Glomerular Filt Rate 55; Phosphorus 2.6 mg/dL (2.7-4.5); Sodium 138 mmol/L (135-145)
[2024-10-27 09:43] LABS: Vitamin D 25-OH Total 19.6 ng/mL (>30)
[2024-10-27 09:59] LABS: Creatinine, mg/dL 180.97
[2024-10-27 10:03] LABS: Parathyroid Hormone Intact 57.2 pg/mL (8.7-77.1)
[2024-10-27 10:52] LABS: Creatinine (CrCl) 1.34 mg/dL (0.5-1.4); Creatinine Clearance 84.4 mL/min (85-125); Creatinine, 24Hr Urine 1.6 G/Day (1.0-2.0); Total Volume 24 Hour Urine 900 mL
== END 2024-10-27 08:04 | disposition home or self-care (01) ==
LOC: HO.LAB 08:03
PROVIDERS: PCP Physician Assistant; Visit Provider Internal Medicine Nephrology
DX: N18.31 Chronic kidney disease, stage 3a (principal)
CPT/HCPCS: 36415; 80051; 82306; 82565; 82575; 83970; 84100; 84520

== ENCOUNTER 2024-11-14 15:02 | Outpatient (AMB) | payer OTHER, SELFPAY ==
--- NOTE | 2024-11-14 15:10 | HO.NEPHOV ---
Vital Signs 11/14/24 15:11 Height 5 ft 7 in Weight 241 lb BMI 37.7 BP 115/70 Blood Pressure Location Lt brachial Position Sitting Pulse 96 Pulse Source Pulse Oximeter Pulse Oximetry (%) 96 Oxygen Delivery Method Room Air Intake Visit Reasons: 1 MO FU-[facility] Clinical Research Physician Required: No Accompanied by: Self / Same As Patient Allergies No Known Allergies [No Known Allergies*] Allergy (Verified 11/14/24 15:13) Do you need a note to return to daycare/school/sports/work: No HPI Comments Details: Dejuan who is a 59-year-old male was seen in follow up for CKD,hypertension and proteinuria. He has high BMI as well as ТАТЬЯНА. He had higher HbA1c which has improved. He is on GLP 1 agonist as well as metformin. His serum creatinine had been fluctuant. His BUN also has been high. He is on losartan and his BP has been at goal. He denies retinopathy, CAD, CVA, CHF, PAD, carotid stenosis or GARTH. His brother has CKD 3 and is in [place]. He does not take excessive NSAID's. He has no new bone or back pain, epistaxis, recurrent sinusitis, sore throat, skin rashes or infections. He denies using drugs and does not have any hepatitis or HIV. He maintains good hydration. He has no H/O cancer but has H/O pulmonary nodules. He denies any prostatic issues. His renal USS showed mild bilateral renal cortical thinning. His serum creatinine is 1.34 now [facility] Medical History Lower extremity edema Dyspnea ТАТЬЯНА (obstructive sleep apnea) Pulmonary nodules Obese Personal history of nicotine dependence Erectile dysfunction HLD (hyperlipidemia) Type 2 diabetes mellitus HTN (hypertension) Surgical History History of repair of right rotator cuff History of left knee surgery History of colonoscopy Family History Mother Lung cancer Father Diabetes Bladder cancer Heart attack Brother Hypertension Diabetes Maternal Grandmother Hypertension Arthritis Maternal Aunt Family history of malignant neoplasm of female breast Social History Household Members: Family Housing: House Do you presently have visiting nurse or other home services: No Alcohol intake: never Patient Tobacco Use Status: Former Tobacco user Years Smoked: (onset 16yo, 1.5ppd x 35yrs, 50pyh, quit 2015) e-Cigarette/Vaping Use: Never Used service: No Current occupational status: employed Cognitive needs: No Hearing needs: No Vision needs: Yes Review of Systems Const All systems reviewed & are unremarkable except as noted in HPI and below Physical Exam Vital Signs: Last Vital Signs Pulse 96 11/14/24 15:11 BP 115/70 11/14/24 15:11 Pulse Ox 96 11/14/24 15:11 Oxygen Delivery Method Room Air 11/14/24 15:11 BMI result Body Mass Index 37.7 Const General: comfortable and no acute distress Orientation/consciousness: patient oriented x3 HEENT Head: Yes normocephalic Mouth: Normal oral and palatal mucosa present Eyes EOM: EOMs intact bilaterally Neck Neck: Yes supple Resp Auscultation: clear to auscultation bilaterally Cardio Jugular venous distension: no JVD Rate: regular rate GI Palpation (GI): Soft to palpation Auscultation: normal bowel sounds General: Yes no CVA tenderness Back/Spine/Pelvis Back: no CVA tenderness Skin General skin exam: no rashes or lesions noted Neuro General: patient oriented x3 and moves all extremities Extrem General: Yes no pedal edema Results Reviewed Nephrology Results: Sodium 138 mmol/L (135-145) 10/27/24 Potassium 4.0 mmol/L (3.3-5.1) 10/27/24 Chloride 102 mmol/L (96-108) 10/27/24 Carbon Dioxide 26 mmol/L (22-29) 10/27/24 BUN 30 mg/dL (9-16) H 10/27/24 Creatinine 1.34 mg/dL (0.5-1.4) 10/27/24 Calcium 10.1 mg/dL (8.4-10.2) 09/12/24 Phosphorus 2.6 mg/dL (2.7-4.5) L 10/27/24 PTH Intact 57.2 pg/mL (8.7-77.1) 10/27/24 Renal US 10/20/24 Assessment & Plan Assessment & Plan (1) CKD stage 3a, GFR 45-59 ml/min: Code(s): N18.31 - Chronic kidney disease, stage 3a Category: Medical (2) HTN (hypertension): Code(s): I10 - Essential (primary) hypertension Category: Medical Qualifiers: Hypertension type: primary hypertension Qualified Code(s): I10 - Essential (primary) hypertension Plan 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 His brother has CKD 3. His renal functions are currently stable. His BP is at goal. He has proteinuria. He is on ARB. He does not take excess NSAID's and maintains good hydration. His renal USS showed B/L cortical thinning. All the work up including 24 hour urine for cr clearance was reviewd . I shall consider switching his metformin to Jardiance at the next visit . I did not make any medication changes today. Answered all questions. F/U given Orders: Orders Creatinine 6 Months N18.31 - Chronic kidney disease, stage 3a Blood Urea Nitrogen 6 Months N18.31 - Chronic kidney disease, stage 3a Electrolytes 6 Months N18.31 - Chronic kidney disease, stage 3a Hemoglobin A1c 6 Months N18.31 - Chronic kidney disease, stage 3a Calcium 6 Months N18.31 - Chronic kidney disease, stage 3a Coding Level of Care Code Est Pt Level 4 (41326) Diagnoses CKD stage 3a, GFR 45-59 ml/min N18.31 Primary hypertension I10 Hypertension type: primary hypertension
[2024-11-14 15:11] VITALS: BP 115/70; PULSE 96; O2SAT 96; BMI 37.7
== END 2024-11-14 15:43 | disposition home or self-care (01) ==
LOC: HO.HKA 15:03
PROVIDERS: PCP Physician Assistant; Visit Provider Internal Medicine Nephrology
DX: N18.31 Chronic kidney disease, stage 3a (principal); I10 Essential (primary) hypertension
CPT/HCPCS: 99214

== ENCOUNTER 2024-11-18 07:55 | Outpatient (AMB) | payer OTHER, SELFPAY ==
--- OUTSIDE RECORDS SUMMARY | 2024-11-18 07:57 | XMS_ITS | Clinical Summary ---
Author Organization Replaced by [facility] Address [address] [place] [address] Care Team Providers Care Licensed Journeyman Electrician Name Role Phone Pcp, No MD Primary [...] age to complete this topic Care Teams Licensed Journeyman Electrician Relationship Specialty Start Date End Date PcpVonda MD [address] [place], [place] [id number] PCP - General Internal Medicine 02/21/21
--- OUTSIDE RECORDS SUMMARY | 2024-11-18 07:57 | XMS_ITS | Encounter Summary ---
Author Organization [facility] Address [address] [place] [address] Care Team Providers Care Rope Machine Setter Name Role Phone Orlin Chambers MD Primary Care Provider [phone] Reason for Visit * Reason Onset Date Comments Medication Refill 04/12/2023 Encounter Details Date Type Department Care Team (Late st Contact Info) Description 04/12/2023 [facility] [address] [place] [address] 203 [place] [address] Orlin Chambers MD 100 [facility] Liam 203 [place], [place] [phone] Insomnia, unspecified type Social History Tobacco Use Types Packs/Day Years Used Date Smoking Tobacco: Former Cigarettes 1.5 30 0 04/06/1985 - 04/06/2015 Smokeless Tobacco: Never Alcohol Use Standard Drinks/Week Comments Not Currently 0 (1 standard drink = 0.6 oz pur e alcohol) Sex and Gender Information Value Date Recorded Sex Assigned at Not on file Legal Sex Male 1:50 PM EDT Gender Identity Male 06/07/2021 6:00 PM EST Sexual Orientation Homosexual (lesbian or chopra) 0 07/17/2021 6:18 PM EST documented as of this encounter Plan of Treatment Not on file documented as of this encounter Visit Diagnoses Diagnosis Insomnia, unspecified type documented in this encounter Care Teams Rope Machine Setter Relationship Specialty Start Date End Date Orlin Chambers MD 100 [place] [address] PCP - General Family Medicine 01/29/19 08/16/23 Juma Harrington [facility] Pulmonary Medicine 11/23/21 documented as of this encounter
--- OUTSIDE RECORDS SUMMARY | 2024-11-18 07:57 | XMS_ITS | Encounter Summary ---
Author Organization [facility] Address [address] [place] [address] Care Team Providers Care Fisher Clam Name Role Phone Orlin Chambers MD Primary Care Provider [phone] Reason for Visit * Reason Onset Date Comments Medication Refill 11/13/2022 Encounter Details Date Type Department Care Team (Late st Contact Info) Description 11/13/2022 Refill [facility] [address] [place] [address] 203 [place] [address] Orlin Chambers MD 100 [facility] Liam 203 [place], [place] [phone] Insomnia, unspecified type Social History Tobacco Use [...] type documented in this encounter Care Teams Fisher Clam Relationship Specialty Start Date End Date Orlin Chambers MD 100 [place] [address] PCP - General Family Medicine 01/29/19 08/16/23 Juma Harrington [facility] Pulmonary Medicine 11/23/21 documented as of this encounter
--- OUTSIDE RECORDS SUMMARY | 2024-11-18 07:57 | XMS_ITS | Encounter Summary ---
Author Organization [facility] Address [address] [place] [address] Care Team Providers Care Veneer Jointer Offbearer Name Role Phone Orlin Chambers MD Primary Care Provider Encounter Details Date Type Department Care Team (Late st Contact Info) Description 09/05/[address] [facility] 10 100 [facility] 203 [place] [address] Orlin Chambers MD 100 [facility] Liam 203 [place] [address] Social History Tobacco Use Types Packs/Day Years [...] on filedocumented in this encounter Care Teams Veneer Jointer Offbearer Relationship Specialty Start Date End Date Orlin Chambers MD [address] [address] PCP - General Family Medicine 01/29/19 08/16/23 Juma Harrington [facility] Pulmonary Medicine 11/23/21 documented as of this encounter
--- OUTSIDE RECORDS SUMMARY | 2024-11-18 07:57 | XMS_ITS | Encounter Summary ---
Author Organization [facility] Address [address] [place] [address] Care Team Providers Care Rubber Goods Tester Name Role Phone Orlin Chambers MD Primary Care Provider [phone] Reason for Visit * Reason Onset Date Comments Medication Refill 04/10/2023 Encounter Details Date Type Department Care Team (Late st Contact Info) Description 04/10/2023 Refill [facility] [address] [place] [address] [address] [place] [address] Orlin Chambers MD 100 [facility] Liam 203 [place], [place] [phone] Insomnia, unspecified type Social History Tobacco Use [...] type documented in this encounter Care Teams Rubber Goods Tester Relationship Specialty Start Date End Date Orlin Chambers MD 100 [place] [address] PCP - General Family Medicine 01/29/19 08/16/23 Juma Harrington [facility] Pulmonary Medicine 11/23/21 documented as of this encounter
--- OUTSIDE RECORDS SUMMARY | 2024-11-18 07:57 | XMS_ITS | Encounter Summary ---
Author Organization [facility] Address [address] [place] [address] Care Team Providers Care Adobe Layer Name Role Phone Orlin Chambers MD Primary Care Provider Encounter Details Date Type Department Care Team (Late st Contact Info) Description 06/03/[address] [facility] [address] [address] Provider, Generic Social History Tobacco [...] on filedocumented in this encounter Care Teams Adobe Layer Relationship Specialty Start Date End Date Orlin Chambers MD 100 [facility] Liam 203 [place], [place] [phone] PCP - General Family Medicine 01/29/19 08/16/23 Juma Harrington [facility] Pulmonary Medicine 11/23/21 documented as of this encounter
--- OUTSIDE RECORDS SUMMARY | 2024-11-18 07:57 | XMS_ITS | Encounter Summary ---
Author Organization [facility] Address [address] [place] [address] Care Team Providers Care Cloth Feeder Name Role Phone Orlin Chambers MD Primary Care Provider [phone] Reason for Visit * Reason Onset Date Comments Medication Refill 11/10/2022 Encounter Details Date Type Department Care Team (Late st Contact Info) Description 11/10/2022 Refill [facility] [address] [place] [address] 203 [place] [address] Orlin Chambers MD 100 [facility] Liam 203 [place], [place] [phone] Insomnia, unspecified type Social History Tobacco Use [...] type documented in this encounter Care Teams Cloth Feeder Relationship Specialty Start Date End Date Orlin Chambers MD 100 [place] [address] PCP - General Family Medicine 01/29/19 08/16/23 Juma Harrington [facility] Pulmonary Medicine 11/23/21 documented as of this encounter
--- OUTSIDE RECORDS SUMMARY | 2024-11-18 07:57 | XMS_ITS | Encounter Summary ---
Author Organization [facility] Address [address] [place] [address] Care Team Providers Care Rewind Operator Name Role Phone Orlin Chambers MD Primary Care Provider [phone] Reason for Visit * Reason Comments Medication Refill Encounter Details Date Type Department Care Team (Late st Contact Info) Description 04/10/2023 Refill [facility] [address] [address] Orlin Chambers MD 100 [facility] Liam [address] [place], [place] [phone] Insomnia, unspecified type Social History Tobacco Use [...] type documented in this encounter Care Teams Rewind Operator Relationship Specialty Start Date End Date Orlin Chambers MD 100 [place] [address] PCP - General Family Medicine 01/29/19 08/16/23 Juma Harrington [facility] Pulmonary Medicine 11/23/21 documented as of this encounter
--- OUTSIDE RECORDS SUMMARY | 2024-11-18 07:57 | XMS_ITS | Encounter Summary ---
Author Organization [facility] Address [address] [place] [address] Care Team Providers Care Payroll And Benefits Specialist Name Role Phone Orlin Chambers MD Primary Care Provider Reason for Visit * Reason Comments Medication Refill Encounter Details Date Type Department Care Team (Late st Contact Info) Description 10/09/2022 Refill [facility] 10 100 [facility] [address] [place] [address] Anayeli Del Rosario APRN 100 [facility] Liam 203 [place], [place] [phone] Anxiety Social History Tobacco Use Types Packs/Day [...] unspecified documented in this encounter Care Teams Payroll And Benefits Specialist Relationship Specialty Start Date End Date Orlin Chambers MD 100 [place] [address] PCP - General Family Medicine 01/29/19 08/16/23 Juma Harrington [facility] Pulmonary Medicine 11/23/21 documented as of this encounter
--- OUTSIDE RECORDS SUMMARY | 2024-11-18 07:57 | XMS_ITS | Encounter Summary ---
Author Organization [facility] Address [address] [place] [address] Care Team Providers Care Director Prison Name Role Phone Orlin Chambers MD Primary Care Provider [phone] Encounter Details Date Type Department Care Team (Late st Contact Info) Description 02/27/2023 Scanned Document [facility] EMERGENCY MED SCAN Emergency Medicine, Scan Social [...] filedocumented in this encounter Care Teams Director Prison Relationship Specialty Start Date End Date Orlin Chambers MD [address] [place] [address] PCP - General Family Medicine 01/29/19 08/16/23 Juma Harrington [facility] Pulmonary Medicine 11/23/21 documented as of this encounter
--- OUTSIDE RECORDS SUMMARY | 2024-11-18 07:57 | XMS_ITS | Encounter Summary ---
Author Organization [facility] Address [address] [place] [address] Care Team Providers Care House Officer Name Role Phone Orlin Chambers MD Primary Care Provider Reason for Visit * Reason Comments Medication Refill Encounter Details Date Type Department Care Team (Late st Contact Info) Description 08/04/2019 Refill [facility] 10 100 [facility] [address] [place] [address] Anayeli Del Rosario, JUNIOR SALES ASSISTANT 100 [facility] Liam 203 [place], [place] [phone] Hyperlipidemia, unspecified hyperlipidemia type Social History Tobacco [...] type documented in this encounter Care Teams House Officer Relationship Specialty Start Date End Date Orlin Chambers MD 100 [place] [address] PCP - General Family Medicine 01/29/19 08/16/23 Juma Harrington [facility] Pulmonary Medicine 11/23/21 documented as of this encounter
--- OUTSIDE RECORDS SUMMARY | 2024-11-18 07:57 | XMS_ITS | Encounter Summary ---
Author Organization [facility] Address [address] [place] [address] Care Team Providers Care Manager Transition Name Role Phone Orlin Chambers MD Primary Care Provider [phone] Reason for Visit * Reason Comments Medication Refill Encounter Details Date Type Department Care Team (Late st Contact Info) Description 04/12/2023 Refill [facility] [address] [address] Orlin Chambers MD 100 [facility] Liam 203 [place], [place] [phone] Insomnia, unspecified type Social History Tobacco Use [...] documented in this encounter Care Teams Manager Transition Relationship Specialty Start Date End Date Orlin Chambers MD 100 [place] [address] PCP - General Family Medicine 01/29/19 08/16/23 Juma Harrington [facility] Pulmonary Medicine 11/23/21 documented as of this encounter
--- OUTSIDE RECORDS SUMMARY | 2024-11-18 07:57 | XMS_ITS | Encounter Summary ---
Author Organization [facility] Address [address] [place] [address] Care Team Providers Care Senior Solutions Engineer Name Role Phone Orlin Chambers MD Primary Care Provider [phone] Encounter Details Date Type Department Care Team (Late st Contact Info) Description 10/06/2022 Scanned Document [facility] ORTHO SURGERY SCAN [place] 31 [place] [address] Social History Tobacco Use Types Packs/Day Years [...] filedocumented in this encounter Care Teams Senior Solutions Engineer Relationship Specialty Start Date End Date Orlin Chambers MD [address] [place] [address] PCP - General Family Medicine 01/29/19 08/16/23 Juma Harrington [facility] Pulmonary Medicine 11/23/21 documented as of this encounter
--- OUTSIDE RECORDS SUMMARY | 2024-11-18 07:57 | XMS_ITS | Encounter Summary ---
Author Organization [facility] Address [address] [place] [address] Care Team Providers Care Utilization Review Rn Name Role Phone Orlin Chambesr MD Primary Care Provider [phone] Encounter Details Date Type Department Care Team (Late st Contact Info) Description 08/29/2022 Scanned Document [facility] ORTHO SURGERY SCAN [place], [facility] 31 [place] [address] Social History Tobacco Use Types Packs/Day Years [...] on filedocumented in this encounter Care Teams Utilization Review Rn Relationship Specialty Start Date End Date Orlin Chambers MD [address] [place] [address] PCP - General Family Medicine 01/29/19 08/16/23 Juma Harrington [facility] Pulmonary Medicine 11/23/21 documented as of this encounter
--- OUTSIDE RECORDS SUMMARY | 2024-11-18 07:57 | XMS_ITS | Encounter Summary ---
Author Organization [facility] Address [address] [place] [address] Care Team Providers Care Medicaid Service Coordinator Name Role Phone Unavailable Primary Care Provider Unavailabl e Encounter Details Date Type Department Care Team ([facility] st Contact Info) Description 11/05/[address] [facility] CARDIOLOGY SCAN Cardiology, Scan Social History [...] on filedocumented in this encounter Care Teams Medicaid Service Coordinator Relationship Specialty Start Date End Date Juma Harrington [facility] Pulmonary Medicine 11/23/21 documented as of this encounter
--- OUTSIDE RECORDS SUMMARY | 2024-11-18 07:57 | XMS_ITS | Encounter Summary ---
Author Organization [facility] Address [address] [place] [address] Care Team Providers Care Tow Motor Driver Name Role Phone Orlin Chambers MD Primary Care Provider [phone] Reason for Visit * Reason Comments Medication Refill Encounter Details Date Type Department Care Team (Late st Contact Info) Description 09/12/2019 Refill [facility] 10 100 [facility] [address] [place] [address] Anayeli Del Rosario, TRANSMITTER TESTER 100 [facility] Liam 203 [place], [place] [phone] Anxiety Social History Tobacco Use Types Packs/Day [...] unspecified documented in this encounter Care Teams Tow Motor Driver Relationship Specialty Start Date End Date Orlin Chambers MD 100 [place] [address] PCP - General Family Medicine 01/29/19 08/16/23 Juma Harrington [facility] Pulmonary Medicine 11/23/21 documented as of this encounter
--- OUTSIDE RECORDS SUMMARY | 2024-11-18 07:57 | XMS_ITS | Encounter Summary ---
Author Organization [facility] Address [address] [place] [address] Care Team Providers Care Product Support Representative Name Role Phone Orlin Chambers MD Primary Care Provider [phone] Reason for Visit * Reason Comments Medication Refill Encounter Details Date Type Department Care Team (Late st Contact Info) Description 11/04/2019 Refill [facility] 10 100 [facility] [address] [place] [address] Anayeli Del Rosario, SPRING REPAIRER HELPER HAND 100 [facility] Liam 203 [place], [place] [phone] Anxiety Social History Tobacco Use Types Packs/Day [...] unspecified documented in this encounter Care Teams Product Support Representative Relationship Specialty Start Date End Date Orlin Chambers MD [address] [address] PCP - General Family Medicine 01/29/19 08/16/23 Juma Harrington [facility] Pulmonary Medicine 11/23/21 documented as of this encounter
--- OUTSIDE RECORDS SUMMARY | 2024-11-18 07:57 | XMS_ITS | Encounter Summary ---
Author Organization [facility] Address [address] [place] [address] Care Team Providers Care Manufacturing Maintenance Mechanic Name Role Phone Orlin Chambers MD Primary Care Provider Encounter Details Date Type Department Care Team (Late st Contact Info) Description 10/06/2022 Scanned Document [facility] [address] [place] [address] [facility] [address] [address] Social History Tobacco Use Types Packs/Day Years [...] on filedocumented in this encounter Care Teams Manufacturing Maintenance Mechanic Relationship Specialty Start Date End Date Orlin Chambers MD [address] [address] PCP - General Family Medicine 01/29/19 08/16/23 Juma Harrington [facility] Pulmonary Medicine 11/23/21 documented as of this encounter
--- OUTSIDE RECORDS SUMMARY | 2024-11-18 07:57 | XMS_ITS | Encounter Summary ---
Author Organization [facility] Address [address] [place] [address] Care Team Providers Care Dyer And Washer Name Role Phone Orlin Chambers MD Primary Care Provider [phone] Encounter Details Date Type Department Care Team (Late st Contact Info) Description 02/27/2023 Scanned Document [facility] EMERGENCY MED SCAN Emergency Medicine, Scan [...] on filedocumented in this encounter Care Teams Dyer And Washer Relationship Specialty Start Date End Date Orlin Chambers MD [address] [place] [address] PCP - General Family Medicine 01/29/19 08/16/23 Juma Harrington [facility] Pulmonary Medicine 11/23/21 documented as of this encounter
--- OUTSIDE RECORDS SUMMARY | 2024-11-18 07:58 | XMS_ITS | Encounter Summary ---
Author Organization [facility] Address [address] [place] [address] Care Team Providers Care Distillery Worker Name Role Phone Orlin Chambers MD Primary Care Provider Reason for Visit * Reason Comments Medication Refill Encounter Details Date Type Department Care Team (Late st Contact Info) Description 02/01/2020 Refill [facility] 10 100 [facility] [address] [place] [address] Anayeli Del Rosario, HOUSING QUALITY STANDARD INSPECTOR 100 [facility] Liam 203 [place], [place] [phone] Anxiety Social History Tobacco Use Types Packs/Day [...] unspecified documented in this encounter Care Teams Distillery Worker Relationship Specialty Start Date End Date Orlin Chambers MD 100 [place] [address] PCP - General Family Medicine 01/29/19 08/16/23 Juma Harrington [facility] Pulmonary Medicine 11/23/21 documented as of this encounter
--- OUTSIDE RECORDS SUMMARY | 2024-11-18 07:58 | XMS_ITS | Data Portability ---
Author Organization [facility], Main Office Address [address] [place] [address] Care Team Providers Care Manager Customer Name Role Phone RYAN BUSTOS Primary Care Provider [phone] Assessment Encounter Date Assessment Date Assessment LastModified [...] serum or plasm a [address] [facility] Not available 4 19:52:00 Referral gastr marjorie fong ist refer ral 2015 016 jourdan [facility], [address] [place], [address], 6 11:02:[address]/di etiti an refer ral [address] [facility] Not available 6 21:59:[address]/di etiti an refer ral [address] [facility] Not available 4 19:52:00 Procedures colon oscop y scree farhana (PROC ) - Due for scree nign colon oscop y and has had diver tic x 2 in last 6 month s. 2014 [email or web address] [address] [place] [address], [address], 6 11:22:40 Surgeries None recor ded. Imaging elect arvin lópez am [address] [facility] In-Office Order, Internal Use Only DO Not Attach Compendium DO Not Attach Compendium, Do Not Delete/merge, [id number] 6 21:59:57 Medication Orders bupro pion HCl XL 300 mg 24 hr table t, exten ded relea se [address] [id number], [address], [place], [address], 6 21:59:58 omepr azole 20 mg table t,bryan ny relea se [address] [id number], [address] [place], [address], 6 21:59:57 simva stati n 80 mg table t [address] [id number], [address] [place], [address], 6 21:59:57 chlor thali done 25 mg table t [address] [id number], [address] [place], [address], 6 21:59:57 Cipro 500 mg table t 2014 015 [email or web address] os [id number], [address] [place], [address], 6 09:13:40 metro nidaz ole 500 mg table t 2014 015 [email or web address] os [id number], [address] [place], [address], 6 09:13:40 Patient Targets Encounter Date Encounter Id Patient Goals Patient Target Last Modified By Organization Details Last Modified Time 05/12/2014 [id number] Ongoing of Microalbumin/Cr eatinine Ratio yearly Not [...] meter and/or readings to your appointments 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 [facility] Not available 08/25/2015 21:59:58 Patient Instructions Encounter Date Encounter Id Patient Instructions Last Modified By Organization Details Last Modified Time 05/12/2014 [id number] deciding about u sing medicines to quit smoking phelmuth Not available 05/14/2014 19:52:00 Quitting Tobacco : [facility] 05/14/2014 19:52:00 low back pain: exercises pheuth Not available 05/14/2014 19:52:00 exercise program : getting started pheuth Not available 05/14/2014 19:52:00 high blood press ure: care instructions [facility] Not available 05/14/2014 19:52:00 learning about h igh blood pressure [facility] Not available 05/14/2014 19:52:00 starting a weigh t loss plan: care instructions [facility] Not available 05/14/2014 19:52:00 Nutrition Referr al and Weight Management Follow-up Information [facility] Not available 05/14/2014 19:52:00 Medications were reviewed at this visit and reconciled. Changes in the active medications are reflected in the current medication list and discussed with patient (or caregiver) with instructions for follow up as needed. Printed medication list provided to the patient as part of the visit summary. [facility] Not available 05/14/2014 19:51:49 11/02/2014 [id number] diverticulitis: care instructions [email or web address] Not available 11/02/2014 10:30:33 learning about diverticulosis and diverticulitis Not available 11/02/2014 10:30:33 PT to FU with PC P in 1 month, beforehand if persistent of worsening pain, fever, vomiting, bloody/black stool.? ? ? Not available 11/02/2014 10:30:02 05/28/2015 [id number] Colon Cancer Screening [facility] [email or web address] Not available 05/31/2015 15:33:50 learning about c olon cancer phelmuth Not available 05/29/2015 12:23:20 To call or retur n for worsening or concerns [email or web address] Not available 05/28/2015 16:41:03 Go to ER if worsening abdominal pain, fever or persistent vomiting. I have reviewed the note and agree with the assessment and plan of care. p[facility] Not available 05/29/2015 12:23:21 08/25/2015 [id number] deciding about u sing medicines to quit smoking phelm[facility] Not available 08/25/2015 21:59:57 Quitting Tobacco : Care Instructions [facility] Not available 08/25/2015 21:59:58 gastroesophageal reflux disease (GERD): care [facility] Not available 08/25/2015 21:59:57 learning about h igh blood sugar [facility] Not available 08/25/2015 21:59:57 fatigue: [facility] 08/25/2015 21:59:57 Colon Cancer Screening [facility] Not available 08/25/2015 21:59:57 learning about c olon cancer phelm[facility] Not available 08/25/2015 21:59:57 high blood press ure: care instructions [facility] Not available 08/25/2015 21:59:57 learning about h igh blood pressure [facility] Not available 08/25/2015 21:59:57 starting a weigh t loss plan: care instructions [facility] Not available 08/25/2015 21:59:57 Nutrition Referr al and Weight Management Follow-up Information [facility] Not available 08/25/2015 21:59:57 Continue to emi tor home blood pressures and bring to next appointment. [facility] Not available 08/25/2015 10:11:42 Medications were reviewed at this visit and reconciled. Changes in the active medications are reflected in the current medication list and discussed with patient (or caregiver) with instructions for follow up as needed. Printed medication list provided to the patient as part of the visit summary. 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 Body mass index 30+ - obesity Referring Physician: Ryan Bustos, Internal Medicine, Encounter Date: 05/12/2014 Referring Physician: Ryan dean, Internal Medicine, Encounter Date: 08/25/2015 Marine Steward/dietitian Refer ral for Body mass index 30+ [...] DO Not Attach Compendium, Do Not Delete/merge, [id number] 08/25/2015 09:20:03 08/25/19 16 08/25/2015 elect rocar diogr am QRS Not Available In-Office Order Internal Use Only DO Not Attach Compendium DO Not Attach Compendium, Do Not Delete/merge, [id number] 08/25/2015 09:20:03 08/25/19 16 08/25/2015 elect rocar diogr am LA Interval Not Available In-Off ice Order Internal Use Only DO Not Attach Compendium DO Not Attach Compendium, Do Not Delete/merge, [id number] 08/25/2015 09:20:03 08/25/19 16 08/25/2015 elect rocar diogr am QRS Duration Not Available In-Of fice Order Internal Use Only DO Not Attach Compendium DO Not Attach Compendium, Do Not Delete/merge, [id number] 08/25/2015 09:20:03 08/25/19 16 08/25/2015 elect rocar diogr am QT Interval Not Available In-Off ice Order Internal Use Only DO Not Attach Compendium DO Not Attach Compendium, Do Not Delete/merge, [id number] 08/25/2015 09:20:03 05/12/20 14 05/12/2014 lipid panel , serum cholesterol, total 154 mg/dL (<200) Not Available [facility] (Centralized Electronic Ordering - All Locations) Patient Can Go To The Location Of Their Choice, [id number] 05/25/2014 15:11:14 05/12/20 14 05/12/2014 lipid panel , serum triglyceride 118 mg/dL (<150) Not Available [facility] (Centralized Electronic Ordering - All Locations) Patient Can Go To The Location Of Their Choice, [id number] 05/25/2014 15:11:14 05/12/20 14 05/12/2014 lipid panel , serum HDL chol 45 mg/dL (>39) Not Available [facility] (Centralized Electronic Ordering - All Locations) Patient Can Go To The Location Of Their Choice, [id number] 05/25/2014 15:11:14 05/12/20 14 05/12/2014 lipid panel , serum LDL cholesterol, calculated 85 mg/dL (0-130 ) Not Available [facility] (Centralized Electronic Ordering - All Locations) Patient Can Go To The Location Of Their Choice, [id number] 05/25/2014 15:11:14 05/12/20 14 05/12/2014 lipid panel , serum non HDL cholesterol (calc) 109 mg/dL (<160) Not Available [facility] (Centralized Electronic Ordering - All Locations) Patient Can Go To The Location Of Their Choice, [id number] 05/25/2014 15:11:14 05/12/20 14 05/12/2014 BMP, serum or plasm a glucose 89 mg/dL (70-99 ) Not Available [facility] (Centralized Electronic Ordering - All Locations) Patient Can Go To The Location Of Their Choice, [id number] 05/25/2014 15:11:13 05/12/20 14 05/12/2014 BMP, serum or plasm a BUN 21 mg/dL (6-20) high Not Available [facility] (Centralized Electronic Ordering - All Locations) Patient Can Go To The Location Of Their Choice, [id number] 05/25/2014 15:11:13 05/12/20 14 05/12/2014 BMP, serum or plasm a creatinine 1.1 mg/dL (0.7-1 .2) Not Available [facility] (Centralized Electronic Ordering - All Locations) Patient Can Go To The Location Of Their Choice, [id number] 05/25/2014 15:11:13 05/12/20 14 05/12/2014 BMP, serum or plasm a sodium 140 mmol/ L (133-1 45) Not Available [facility] (Centralized Electronic Ordering - All Locations) Patient Can Go To The Location Of Their Choice, [id number] 05/25/2014 15:11:13 05/12/20 14 05/12/2014 BMP, serum or plasm a potassium 4.3 mmol/ L (3.6-5 .2) Not Available [facility] (Centralized Electronic Ordering - All Locations) Patient Can Go To The Location Of Their Choice, [id number] 05/25/2014 15:11:13 05/12/20 14 05/12/2014 BMP, serum or plasm a chloride 99 mmol/ L (98-10 7) Not Available [facility] (Centralized Electronic Ordering - All Locations) Patient Can Go To The Location Of Their Choice, [id number] 05/25/2014 15:11:13 05/12/20 14 05/12/2014 BMP, serum or plasm a bicarbonate 30 mmol/ L (22-29 ) high Not Available [facility] (Centralized Electronic Ordering - All Locations) Patient Can Go To The Location Of Their Choice, [id number] 05/25/2014 15:11:13 05/12/20 14 05/12/2014 BMP, serum or plasm a anion gap 11 (4-17) Not Available [facility] (Centralized Electronic Ordering - All Locations) Patient Can Go To The Location Of Their Choice, [id number] 05/25/2014 15:11:13 05/12/20 14 05/12/2014 BMP, serum or plasm a calcium 9.9 mg/dL (8.6-1 0.5) Not Available [facility] (Centralized Electronic Ordering - All Locations) Patient Can Go To The Location Of Their Choice, [id number] 05/25/2014 15:11:13 05/12/20 14 05/12/2014 BMP, serum [...] Go To The Location Of Their Choice, [id number] 05/25/2014 15:11:13 05/12/20 14 05/12/2014 BMP, serum [...] Go To The Location Of Their Choice, [id number] 05/28/2015 19:59:07 05/28/2005/28/2015 CBC w/ auto diff [...] t No observ ation record ed. [facility] Not Available 2015 09:50:37 08/25/19 16 carol lópez am No observ ation record ed. [facility] Not Available 2015 09:41:39 Result Notes None recorded. Problems Name Problem SNOMED Code Status Onset Date Resolution Date Notes Provider Name and Address Organization Details Recorded Time Sprains and strains of joints and adjacent muscles Completed 201102/19/2014 RECORDED 04/23/20 12 9:33AM BY DIXON HOLLAND MA, ANNOTATI ON/ADDEN DUM BLAYNE Hurtado, [facility] 6 09:33:55 Bicipita l tenosyno vitis [id number] Completed 201202/19/2014 IMPRESSI ON: AT ATTACHME NT AT ELBOW. CONTINUE ALEVE; RECORDED 10/24/19 13 10:00AM BY HIEN MANNING MA, ANNOTATI ON/ADDEN DUM BLAYNE Hurtado, [facility] 6 09:33:55 Carpal tunnel syndrome 39937879 Active 2013 BLAYNE Hurtado, [facility] 6 09:33:55 Chest pain 44724694 Completed 201102/19/2014 RECORDED 04/23/20 12 9:33AM BY DIXON HOLLAND MA, ANNOTATI ON/ADDEN DUM BLAYNE Hurtado, [facility] 6 09:33:55 Closed fracture of lower end of radius AND ulna 44903995 Completed 200802/19/2014 RECORDED 05/20/20 09 8:20AM BY RYAN BUSTOS MD, ANNOTATI ON/ADDEN DUM BLAYNE Hurtado, [facility] 6 09:33:55 Disorder of kidney and/or ureter 656546710 Completed 200802/19/2014 IMPRESSI ON: CREATINI NE 1.4 (11/2006) ; RECORDED 05/20/20 09 8:20AM BY RYAN BUSTOS MD, ANNOTJEANNIE ON/ADDEN DUM BLAYNE Hurtado, [facility] 6 09:33:55 Edema 607751509 Completed 200802/19/2014 RECORDED 05/20/20 09 7:44AM BY HIEN MANNING MA, ANNOTATI ON/ADDEN DUM BLAYNE Hurtado, [facility] 6 09:33:55 Influenz a vaccine needed [id number] 06 Completed 201102/19/2014 RECORDED 03/19/20 12 8:37AM BY NADYA CAMILO, OFFICE VISIT BLAYNE Hurtado, [facility] 6 09:33:55 Follow-u p encounte r Completed 201102/19/2014 RECORDED 03/19/20 12 8:24AM BY LETTY LUNA ON/ADDEN DUM BLAYNE Hurtado, [facility] 6 09:33:55 Adult health examinat ion Completed 201102/19/2014 RECORDED 04/23/20 12 9:33AM BY DIXON HOLLAND MA, ANNOTATI ON/ADDEN DUM BLAYNE Hurtado, [facility] 6 09:33:55 General examinat ion of patient Completed 200702/19/2014 RECORDED 07/14/20 08 7:03AM BY LETTY FU ON/ADDEN DUM BLAYNE Hurtado, [facility] 6 09:33:55 Hypercho lesterol emia 06304762 Completed 201202/19/2014 RECORDED 11/26/19 13 1:46PM BY DIXON HOLLAND MA ANNOTJEANNIE ON/ADDEN DUM HienBLAYNE Sloan [facility] 6 09:33:54 Hypersom donis 47371296 Completed 201102/19/2014 RECORDED 06/18/20 12 7:23AM BY LETTY BERNAL ON/[facility] 6 09:33:55 Epidermo id cyst of skin 011439941 Completed 201102/19/2014 RECORDED 03/19/20 12 8:24AM BY LETTY LUNA ON/ADDEN [facility] 6 09:33:55 Renewal of prescrip tion Completed 201202/19/2014 RECORDED 11/26/19 13 1:46PM BY DIXON HOLLAND MA, LETTY ON/ADDEN [facility]UM [facility] 6 09:33:55 Administ ration of bacteria l and viral vaccine Completed 200702/19/2014 RECORDED 03/31/20 08 7:18AM BY HIEN MANNING MA, OFFICE VISIT [facility] 6 09:33:55 Hyperhid rosis 466811934 Completed 201102/19/2014 RECORDED 04/23/20 12 9:33AM BY DIXON HOLLAND MA, LETTY ON/ADDEN DUM [facility] 6 09:33:55 Tobacco user [id number] Completed 201102/19/2014 RECORDED 03/19/20 12 8:24AM BY LETTY LUNA ON/ADDEN DUM BLAYNE Hurtado, [facility] 6 09:33:55 Sprain of foot 42586741 Completed 201102/19/2014 RECORDED 03/19/20 12 8:24AM BY LETTY LUNA ON/ADDEN [facility] 6 09:33:55 Sprains and strains of joints and adjacent muscles Completed 201102/20/2014 RECORDED 04/23/20 12 9:33AM BY DIXON HOLLAND MA, LETTY ON/ADDEN DUM BLAYNE Hurtado, [facility] 6 09:33:55 Bicipita l tenosyno vitis 25924037 Completed 201202/20/2014 IMPRESSI ON: AT ATTACHME NT AT ELBOW. CONTINUE ALEVE; RECORDED 10/24/19 13 10:00AM BY HIEN MANNING MA, LETTY ON/ADDEN DUM BLAYNE Hurtado, [facility] 6 09:33:55 Chest pain 40004956 Completed 201102/20/2014 RECORDED 04/23/20 12 9:33AM BY DIXON HOLLAND MA, LETTY ON/ADDEN [facility] 6 09:33:55 Closed fracture of lower end of radius AND ulna 49852900 Completed 200802/20/2014 RECORDED 05/20/20 09 8:20AM BY RYAN BUSTOS MD, LETTY ON/ADDEN DUM BLAYNE Hurtado, [facility] 6 09:33:55 Disorder of kidney and/or ureter 311618323 Completed 200802/20/2014 IMPRESSI ON: CREATINI NE 1.4 (11/2006) ; RECORDED 05/20/20 09 8:20AM BY RYAN BUSTOS MD, ANNOTJEANNIE ON/ADDEN DUM BLAYNE Hurtado, [facility] 6 09:33:55 Edema 887765714 Completed 200802/20/2014 RECORDED 05/20/20 09 7:44AM BY HIEN MANNING MA, ANNOTATI ON/ADDEN DUM Hien Nicole-M BLAYNE rico, [facility] 6 09:33:55 Influenz a vaccine needed [id number] 06 Completed 201102/20/2014 RECORDED 03/19/20 12 8:37AM BY NADYA CAMILO, OFFICE VISIT BALYNE Hurtado, [facility] 6 09:33:55 Follow-u p encounte r Completed 201102/20/2014 RECORDED 03/19/20 12 8:24AM BY LETTY LUNA ON/ADDEN DUM [facility]ien [facility] 6 09:33:55 Adult health examinat ion Completed 201102/20/2014 RECORDED 04/23/20 12 9:33AM BY DIXON HOLLAND MA, ANNOTATI ON/ADDEN DUM [facility] 6 09:33:55 General examinat ion of patient Completed 200702/20/2014 RECORDED 07/14/20 08 7:03AM BY LETTY FU ON/ADDEN DUM Hien Nicole-BLAYNE Humphrey, [facility] 6 09:33:55 Hypercho lesterol emia 71360906 Completed 201202/20/2014 RECORDED 11/26/19 13 1:46PM BY DIXON HOLLAND MA, ANNOTATI ON/ADDEN DUM [facility]ien [facility] 6 09:33:54 Hypersom donis 74242420 Completed 201102/20/2014 RECORDED 06/18/20 12 7:23AM BY LETTY BERNAL ON/ADDBLAYNE Neri, [facility] 6 09:33:55 Epidermo id cyst of skin 163160565 Completed 201102/20/2014 RECORDED 03/19/20 12 8:24AM BY LETTY LUNA ON/ADDEN DUM BLAYNE Hurtado, [facility] 6 09:33:55 Renewal of prescrip tion Completed 201202/20/2014 RECORDED 11/26/19 13 1:46PM BY DIXON HOLLAND MA, LETTY ON/ADDEN DUM BLAYNE Hurtado, [facility] 6 09:33:55 Administ ration of bacteria l and viral vaccine Completed 200702/20/2014 RECORDED 03/31/20 08 7:18AM BY HIEN MANNING MA, OFFICE VISIT BLAYNE Hurtado, [facility] 6 09:33:55 Hyperhid rosis 102942037 Completed 201102/20/2014 RECORDED 04/23/20 12 9:33AM BY DIXON HOLLAND MA, LETTY ON/ADDEN DUM [facility] 6 09:33:55 Tobacco user [id number] Completed 201102/20/2014 RECORDED 03/19/20 12 8:24AM BY LETTY LUNA ON/ADDEN DUM BLAYNE Hurtado, [facility] 6 09:33:55 Sprain of foot 25246442 Completed 201102/20/2014 RECORDED 03/19/20 12 8:24AM BY LETTY LUNA ON/ADDEN DUM BLAYNE Hurtado, [facility] 6 09:33:55 Body mass index 30+ - obesity 378930571 Active BLAYNE Hurtado, [facility] 6 09:33:55 Low back pain 006528354 Active Hien rico BLAYNE nagel, [facility] 6 09:33:55 Divertic ulitis of colon 129609658 Active Hien rico BLAYNE nagel, [facility] 6 09:33:55 Fatigue 23059104 Active Hienlynette rico BLAYNE nagel, [facility] 6 09:33:55 Hypergly cemia 99232775 Active Hien rico BLAYNE shona, [facility] 6 09:33:55 Sprains and strains of joints and adjacent muscles Completed 201101/27/2014 RECORDED 04/23/20 12 9:33AM BY DIXON HOLLAND MA, ANNOTATI ON/ADDEN DUM Hien rico BLAYNE shona, [facility] 6 09:33:55 Acute prostati tis 33360400 Active 2013 IMPRESSI ON: WE DISCUSSE D [...] HIEN MANNING MA, OFFICE VISIT BLAYNE Hurtado, [facility] 6 09:33:55 Bicipita l nonaosyno vitis 62138833 Completed 201201/27/2014 IMPRESSI ON: AT ATTACHME NT AT ELBOW. CONTINUE ALEVE; RECORDED 10/24/19 13 10:00AM BY HIEN MANNING MA, ANNOTATI ON/ADDEN DUM BLAYNE Hurtado, [facility] 6 09:33:55 Biliuria 00110176 Active 2013 BLAYNE Hurtado, [facility] 6 09:33:55 Carpal tunnel syndrome 47622496 Completed 200801/27/2014 RECORDED 05/20/20 09 8:20AM BY RYAN BUSTOS MD, ANNOTATI ON/ADDEN DUM BLAYNE Hurtado, [facility] 6 09:33:55 Chest pain 33864502 Completed 201101/27/2014 RECORDED 04/23/20 12 9:33AM BY DIXON HOLLAND MA, ANNOTATI ON/ADDEN DUM BLAYNE Hurtado, [facility] 6 09:33:55 Chronic tension- type headache 365473016 Active 2013 BLAYNE Hurtado, [facility] 6 09:33:55 Closed fracture of lower end of radius AND ulna 75717496 Completed 200801/27/2014 RECORDED 05/20/20 09 8:20AM BY RYAN BUSTOS MD, ANNOTATI ON/ADDEN DUM BLAYNE Hurtado, [facility] 6 09:33:55 Depressi ve disorder 01762800 Active 2013 BLAYNE Hurtado, [facility] 6 09:33:55 Disorder of kidney and/or ureter 995273377 Completed 200801/27/2014 IMPRESSI ON: CREATINI NE 1.4 (11/2006) ; RECORDED 05/20/20 09 8:20AM BY RYAN BUSTOS MD, ANNOTATI ON/ADDEN DUM BLAYNE Hurtado, [facility] 6 09:33:55 Edema 096268394 Completed 200801/27/2014 RECORDED 05/20/20 09 7:44AM BY HIEN MANNING MA, LETTY ON/ADDEN DUM BLAYNE Hurtado, [facility] 6 09:33:55 Gastroes ophageal reflux disease 852605535 Active 2013 BLAYNE Hurtado, [facility] 6 09:33:55 Malaise and fatigue 763961705 Active 2013 BLAYNE Hurtado, [facility] 6 09:33:55 Influenz a vaccine needed 14662610339 06 Completed 201101/27/2014 RECORDED 03/19/20 12 8:37AM BY NADYA CAMILO, OFFICE VISIT BLAYNE Hurtado, [facility] 6 09:33:55 Follow-u p encounte r Completed 201101/27/2014 RECORDED 03/19/20 12 8:24AM BY LETTY LUNA ON/ADDEN DUM [facility] 6 09:33:55 Adult health examinat ion Completed 201101/27/2014 RECORDED 04/23/20 12 9:33AM BY DIXON HOLLAND MA, ANNOTATI ON/ADDEN DUM BLAYNE Hurtado, [facility] 6 09:33:55 General examinat ion of patient Completed 200701/27/2014 RECORDED 07/14/20 08 7:03AM BY LETTY FU ON/ADDEN DUM BLAYNE Hurtado, [facility] 6 09:33:55 Hypercho lesterol emia 10563843 Completed 201201/27/2014 RECORDED 11/26/19 13 1:46PM BY DIXON HOLLAND MA, ANNOTATI ON/ADDEN DUM BLAYNE Hurtado, [facility] 6 09:33:54 Hyperlip idemia 91498308 Active 2013 BLAYNE Hurtado, [facility] 6 09:33:54 Hypersom donis 95778464 Completed 201101/27/2014 RECORDED 06/18/20 12 7:23AM BY LETTY BERNAL ON/ADDEN DUM BLAYNE Hurtado, [facility] 6 09:33:55 Essentia l hyperten duglas 81049927 Active 2013 BLAYNE Hurtado, [facility] 6 09:33:55 Epidermo id cyst of skin 017195135 Completed 201101/27/2014 RECORDED 03/19/20 12 8:24AM BY LETTY LUNA ON/ADDEN DUM BLAYNE Hurtado, [facility] 6 09:33:55 Insomnia 756287877 Active 2013 BLAYNE Hurtado, [facility] 6 09:33:55 Renewal of prescrip tion Completed 201201/27/2014 RECORDED 11/26/19 13 1:46PM BY DIXON HOLLAND MA, LETTY ON/ADDEN DUM BLAYNE Hurtado, [facility] 6 09:33:55 Fibromyo sitis 30983640 Active 2013 BLAYNE Hurtado, [facility] 6 09:33:55 Administ ration of bacteria l and viral vaccine Completed 200701/27/2014 RECORDED 03/31/20 08 7:18AM BY HIEN MANNING MA, OFFICE VISIT BLAYNE Hurtado, [facility] 6 09:33:55 Hyperhid rosis 304173865 Completed 201101/27/2014 RECORDED 04/23/20 12 9:33AM BY DIXON HOLLAND MA, ANNOTATI ON/ADDEN DUM BLAYNE Hurtado, [facility] 6 09:33:55 Obesity 487148378 Active 2013 STORY: RECENT INCREASE IN HIS WEIGHT.; RECORDED 01/10/20 14 1:21PM BY HIEN MANNING MA, OFFICE VISIT BLAYNE Hurtado, [facility] 6 09:33:55 Tobacco user [id number] Completed 201101/27/2014 RECORDED 03/19/20 12 8:24AM BY LETTY LUNA ON/ADDEN DUM BLAYNE Hurtado, [facility] 6 09:33:55 History of clinical finding in subject 409592181 Active 2011 BLAYNE Hurtado, [facility] 6 09:33:55 Proteinu brandon 66851018 Active 2013 BLAYNE Hurtado, [facility] 6 09:33:55 Psychose xual dysfunct ion associat ed with inhibite d libido 516674731 Active 2013 BLYANE Hurtado, [facility] 6 09:33:55 Sprain of foot 39542608 Completed 201101/27/2014 RECORDED 03/19/20 12 8:24AM BY LETTY LUNA ON/ADDEN DUM BLAYNE Hurtado, [facility] 6 09:33:55 Tobacco dependen ce syndrome 34439908 Active 2013 Hien rico MA null, [facility] 6 09:33:55 Problem Notes None recorded. Procedures Surgical History Date Name Laterality Status Provider Name and Address Organization Details Recorded Time 6 Colonoscopy completed Analisa Degutis [facility] 12/06/2015 16:58:34 3 Vasectomy completed [facility] 05/12/2014 08:16:32 5 Circumcision completed [facility] 05/12/2014 08:16:32 Imaging Results Imaging Date Name Status LastModified by Organization Details LastModified Time 10/30/2014 imaging/diagnostic result completed [facility] Information not available 08/25/2015 09:50:37 08/25/[address] [facility] Informa tion not available 08/25/2015 09:41:39 Procedure Notes None recorded. Medical Equipment None Reported. Allergies Allergen ID Allergen Name Allergen Category Reaction Reaction Severity Criticality Documentation Date Start Date Code Code System Note Provider Name and Address Organization Details Recorded Time 1997 aspirin medicatio n nausea Not available Not available 01/27/2014 1191 RxNorm DANIS Bah [address] [address], [place], [address] [place] [address] 5 16:39:27 Medications Name Sig Start Date [...] Updated DateTime 4 97 % 97 % 82482.6 5874 g 98.1 [degF] 64 /min 31.2 kg/m2 171.45 cm 115 mm[Hg] 74 mm[Hg] Dixon [facility] 4 08:21:21 Date Recorded Oxygen saturation Oxygen saturation in Arterial blood by Pulse oximetry Body weight Heart rate Body mass index (BMI) Body height Body temperature Systolic blood pressure Diastolic blood pressure Provider Name and Address Organization Details Last Updated DateTime 5 96 % 96 % 983036. 41635 g 80 /min 36.1 kg/m2 171.45 cm 97.9 [degF] 110 mm[Hg] 70 mm[Hg] Elsa Conrad MA [facility] 5 09:52:32 Date Recorded Body weight Oxygen saturation Oxygen saturation in Arterial blood by Pulse oximetry Body height Body mass index (BMI) Body temperature Heart rate Systolic blood pressure Diastolic blood pressure Provider Name and Address Organization Details Last Updated DateTime 5 058825. 38086 g 96 % 96 % 171.45 cm 36.7 kg/m2 96.3 [degF] 98 /min 117 mm[Hg] 80 mm[Hg] Elsa Conrad MA [facility] 5 16:28:18 Date Recorded Body height Body mass index (BMI) Body weight Oxygen saturation Oxygen saturation in Arterial blood by Pulse oximetry Heart rate Body temperature Systolic blood pressure Diastolic blood pressure Provider Name and Address Organization Details Last Updated DateTime 6 171.45 cm 36.3 kg/m2 883755. 31713 g 97 % 97 % 88 /min 98.1 [degF] 134 mm[Hg] 82 mm[Hg] Hien rico MA [facility] 6 09:20:03 Social History Question Answer Notes LastModified by Organizat ion Details LastModified Time Tobacco Smoking Status Current Every Day Smoker Dixon [facility] 05/12/2014 08:16:25 Do You Have An [...] not available 05/12/2014 What Is Your Occupation? [employer] Information not available 08/25/2015 Have There Been [...] LastModified by Organization Details LastModified Time Son Harmful pattern of use of alcohol 17 abolcun Not available 2014 16:28:18 Son Substance abuse 17 abolcun Not available 2014 16:28:18 Mother Malignant neoplasm of lung 58 59 abolcun Not available 2014 09:55:52 Father Diabetes mellitus 60 73 abolcun Not available 2014 09:55:52 Father Heart disease abolcun Not available 2014 16:28:18 Brother Diabetes mellitus 40 abolcun Not available 2014 16:28:18 Brother Allergy abolcun Not available 05/28/2015 16:28:18 Medical History Condition Response Other N Gout N Blood Diseases N Kidney Stones N Hyperthyroidism N Breast Cancer N Hypothyroidism N Lung Disease N Depression N COPD N Defects or Inherited Disease N Anesthesia [...] Recorded Time Tdap 8 completed Not Available [facility] 01/27/2014 13:31:33 Influenza, split virus, trivalent, preservative 2 completed Not Available [facility] 01/27/2014 13:31:33 Influenza, split virus, trivalent, PF 4 completed Not Available [facility] 08/02/2019 02:21:57 Past Encounters Encounter ID Performer Location Encounter Start Date Encounter Closed Date Diagnosis/Indication Diagnosis SNOMED-CT Code Diagnosis ICD10 Code Diagnosis Note [id number] autoEComm erce [address] [facility] [facility] [place] [address] 11/14/2006 00:00:00 [id number] autoEComm erce [address] [facility], [address] [place] [address] 03/31/2008 00:00:00 [id number] [place] [address] 07/14/2008 00:00:00 [id number] [place] [address] 09/23/2008 00:00:00 [id number] [address] [place] [address] 10/09/2008 00:00:00 [id number] [address] [place] [address] 10/29/2008 00:00:00 [id number] [address] [place] [address] 12/24/2008 00:00:00 [id number] autoEComm erce [address] [facility],[address] [place] [address] 02/01/2009 00:00:00 [id number] autoEComm erce [address] [facility] [address] [place] [address] 05/20/2009 00:00:00 [id number] autoEComm erce [address] [facility] [address] [place] [address] 08/26/2009 00:00:00 [id number] autoEComm erce [address] [facility],[address] [place] [address] 09/30/2009 00:00:00 [id number] autoEComm erce [address] [facility] [address] [place] [address] 12/22/2009 00:00:00 [id number] autoEComm erce [address] [place] [address] 01/24/2010 00:00:00 [id number] autoEComm erce [address] [facility] [address] [place] [address] 06/07/2010 00:00:00 [id number] auto[address]Comm erce [address] [place] [address] 08/30/2010 00:00:00 [id number] autoEComm erce [address] [facility],[address] [place] [address] 11/21/2011 00:00:00 [id number] auto[address]Comm erce [address] [place] [address] 03/19/2012 00:00:00 [id number] autoEComm erce [address] [facility] [address] [place] [address] 04/23/2012 00:00:00 [id number] autoEComm erce [address] [facility],[address] [place] [address] 06/18/2012 00:00:00 [id number] autoEComm erce [address] [facility] [address] [place] [address] 08/19/2012 00:00:00 [id number] autoEComm erce [address] [facility],[address] [place] [address] 11/25/2012 00:00:00 [id number] autoEComm erce [address] [facility],[address] [place] [address] 01/09/2014 00:00:00 [id number] Ryan Bustos MD Main Office [address] [facility] [address] [place], [place] [address] 05/12/2014 08:03:54 05/12/2014 09:32:08 Adult health examination 302233226 Needs infl uenza immunization 464520911 Body mass index 30+ - obesity 148917304 Tobacco de pendence syndrome 75999022 Essential hypertension 18575418 Low back pain 137288899 Hyperlipidemia 45060044 [id number] DANIS Leger Main Office [address] [facility] [address] [place] [address] 11/02/2014 09:42:42 11/02/2014 10:19:22 Diverticulitis of colon 254383041 symptomati c improvemen t on abx, complete course of antibiotic [id number] DANIS Bah Main Office [address] [address] [place] [address] 05/28/2015 16:19:08 05/28/2015 16:57:55 Diverticulitis of colon 629841276 K57.32 Patient w/ hx diverticul itis via [...] plan. Screening for malignant neoplasm of colon 251550819 Z12.11 [id number] Ryan Bustos MD Main Office [address] [address] 08/25/2015 09:09:08 08/25/2015 10:14:52 Essential hypertension 07082145 I10 Screening for malignant neoplasm of colon 698323643 Z12.11 Hyperglycemia 48967232 R 73.9 Hyperlipidemia 95409618 E78.5 Malaise and fatigue 2717 35544 R53.83 Tobacco de pendence syndrome 41920038 F17.290 Gastroesop hageal reflux disease 678909706 K21.9 Body mass index 30+ - obesity 321565908 Z68.36 Health Concerns Section Related Observation LastModified by Organization Detai ls LastModified Time None Recorded Concern Status LastModified by Organization Details LastModified Time None Recorded Advance Directives Directive N: Payers Encounter Date Sequence Insurance Name Policy Number Policy Salazar Covered Member ID Salazar Member ID Guarantor Name 05/12/2014 1 [facility] (PPO) [id number] Ross Mosley oks [id number] Ross Desai ks 11/02/2014 1 [facility] (PPO) [id number] Ross Mosley oks [id number] Ross stacy 05/28/2015 1 [facility] (PPO) [id number] Ross Mosley oks [id number] Ross stacy 08/25/2015 1 [facility] (O) [id number] Ross Mosley [facility] [id number] Ross Desai tn Notes Date Note Type Note Provider Name and Address Organization Details Recorded Time 11/02/2014 text/html H/o LLQ abdomina l pain started 3 days ago while visiting family in [place], progressively worsened within 2 hours. He went [...] tolerating PO fluids. Ryan Bustos MD [address], [address], [facility] 11/02/2014 12:34:39 08/25/2015 text/html Notes symptoms o [...] of distressing dreams. Ryan Bustos MD [address], [address], [facility] 08/25/2015 22:00:19 08/25/2015 text/html HeadacheReported bypatient.Notes:Notes posterior [...] concerns about weight gain. Ryan Bustos MD [address] [address], [place], [address], [facility] 08/25/2015 22:00:19
--- OUTSIDE RECORDS SUMMARY | 2024-11-18 07:58 | XMS_ITS | Clinical Summary ---
Author Organization [facility] Address [address] [place] [address] Care Team Providers Care Armor Reconnaissance Vehicle Driver Name Role Phone Orlin Chambers Primary Care Provider [phone] Allergies No known active allergies Medications Medication [...] age to complete this topic Care Teams Armor Reconnaissance Vehicle Driver Relationship Specialty Start Date End Date Orlin Chambers DO PCP - General Family Medicine 06/17/18
--- OUTSIDE RECORDS SUMMARY | 2024-11-18 07:58 | XMS_ITS | Encounter Summary ---
Author Organization [facility] Address [address] [place] [address] Care Team Providers Care Boring Machine Operator Horizontal Name Role Phone Orlin Chambers MD Primary Care Provider Encounter Details Date Type Department Care Team (Late st Contact Info) Description 08/24/2020 Scanned Document [facility] [address] [place] [address] Provider, External, [address] [place] [address] Social History Tobacco Use Types Packs/Day Years [...] on filedocumented in this encounter Care Teams Boring Machine Operator Horizontal Relationship Specialty Start Date End Date Orlin Chambers MD [address] [place] [address] PCP - General Family Medicine 01/29/19 08/16/23 Juma Harrington [facility] Pulmonary Medicine 11/23/21 documented as of this encounter
--- OUTSIDE RECORDS SUMMARY | 2024-11-18 07:58 | XMS_ITS | Encounter Summary ---
Author Organization [facility] Address [address] [place] [address] Care Team Providers Care Peoplesoft Functional Analyst Name Role Phone Orlin Chambers MD Primary Care Provider [phone] Reason for Visit * Reason Comments Medication Refill Encounter Details Date Type Department Care Team (Late st Contact Info) Description 08/04/2019 Refill [facility] [address] [address] Orlin Chambers MD 100 [facility] [address] [place], [place] [id number] Insomnia, unspecified type Social History Tobacco Use [...] type documented in this encounter Care Teams Peoplesoft Functional Analyst Relationship Specialty Start Date End Date Orlin Chambers MD 100 [place] [address] PCP - General Family Medicine 01/29/19 08/16/23 Juma Harrington [facility] Pulmonary Medicine 11/23/21 documented as of this encounter
--- OUTSIDE RECORDS SUMMARY | 2024-11-18 07:58 | XMS_ITS | Encounter Summary ---
Author Organization [facility] Address [address] [place] [address] Care Team Providers Care Band Tacker Name Role Phone Orlin Chambers MD Primary Care Provider Encounter Details Date Type Department Care Team (Late st Contact Info) Description 09/08/2020 Scanned Document [facility] [address] [place] [address] Provider, External, [address] [place] [address] Social History Tobacco Use Types Packs/Day Years [...] on filedocumented in this encounter Care Teams Band Tacker Relationship Specialty Start Date End Date Orlin Chambers MD [address] [place] [address] PCP - General Family Medicine 01/29/19 08/16/23 Juma Harrington [facility] Pulmonary Medicine 11/23/21 documented as of this encounter
--- OUTSIDE RECORDS SUMMARY | 2024-11-18 07:58 | XMS_ITS | Encounter Summary ---
Author Organization [facility] Address [address] [place] [address] Care Team Providers Care Family And Marriage Counsellor Name Role Phone Orlin Chambers MD Primary Care Provider [phone] Encounter Details Date Type Department Care Team (Late st Contact Info) Description 11/01/2020 Scanned Document [facility]TH[facility] SURG[facility] SCAN Orthopedic Surgery, [...] on filedocumented in this encounter Care Teams Family And Marriage Counsellor Relationship Specialty Start Date End Date Orlin Chambers MD [address] [place] [address] PCP - General Family Medicine 01/29/19 08/16/23 Juma Harrington [facility] Pulmonary Medicine 11/23/21 documented as of this encounter
--- OUTSIDE RECORDS SUMMARY | 2024-11-18 07:58 | XMS_ITS | Encounter Summary ---
Author Organization [facility] Address [address] [place] [address] Care Team Providers Care Door Person Name Role Phone Orlin Chambers MD Primary Care Provider [phone] Encounter Details Date Type Department Care Team (Late st Contact Info) Description 10/18/2020 Scanned Document [facility] [address] [facility] [address] [place] [address] Michael Sweeney MD [address] [place] [address] Social History Tobacco Use Types Packs/Day Years [...] on filedocumented in this encounter Care Teams Door Person Relationship Specialty Start Date End Date Orlin Chambers MD [address] [address] PCP - General Family Medicine 01/29/19 08/16/23 Juma Harrington [facility] Pulmonary Medicine 11/23/21 documented as of this encounter
--- OUTSIDE RECORDS SUMMARY | 2024-11-18 07:58 | XMS_ITS | Encounter Summary ---
Author Organization [facility] Address [address] [place] [address] Care Team Providers Care Power Press Tender Name Role Phone Orlin Chambers MD Primary Care Provider [phone] Encounter Details Date Type Department Care Team (Late st Contact Info) Description 05/25/2019 Scanned Document [facility] Pulmonary and Critical Care- [address] [address] Kelly Bustillo MD [address] [place] [address] Social History Tobacco Use Types Packs/Day Years [...] on filedocumented in this encounter Care Teams Power Press Tender Relationship Specialty Start Date End Date Orlin Chambers MD [address] [place] [address] PCP - General Family Medicine 01/29/19 08/16/23 Juma Harrington [facility] Pulmonary Medicine 11/23/21 documented as of this encounter
--- OUTSIDE RECORDS SUMMARY | 2024-11-18 07:58 | XMS_ITS | Encounter Summary ---
Author Organization [facility] Address [address] [place] [address] Care Team Providers Care Driller'S Assistant Name Role Phone Orlin Chambers MD Primary Care Provider [phone] Encounter Details Date Type Department Care Team (Late st Contact Info) Description 01/25/2023 Scanned Document [facility] [place] [address] [place] [address] Social History Tobacco Use Types Packs/Day Years [...] on filedocumented in this encounter Care Teams Driller'S Assistant Relationship Specialty Start Date End Date Orlin Chambers MD [address] [place] [address] PCP - General Family Medicine 01/29/19 08/16/23 Juma Harrington [facility] Pulmonary Medicine 11/23/21 documented as of this encounter
--- OUTSIDE RECORDS SUMMARY | 2024-11-18 07:58 | XMS_ITS | Clinical Summary ---
Author Organization [facility] Address [address] [place] [address] Care Team Providers Care Otr Company Truck Driver Name Role Phone Unavailable Primary Care Provider Unavailabl e Allergies Active Allergy Reactions Criticality Noted Date Comments Aspirin GI Intolerance/Nausea/Vomiting Low 05/01 Medications metFORMIN (GLUCOPHAGE) 500 MG tabletIndications: Type 2 diabetes mellitus without complication, without long-term current use of insulin (HCC) TAKE 1 TABLET BY MOUTH TWICE A DAY WITH MEALS 180 tablet 1 3 Active chlorthalidone (HYGROTON) 25 MG tabletIndications: Essential hypertension Take 1 tablet (25 mg total) by mouth daily. 90 tablet 1 3 Active amoxicillin-clavul anate (AUGMENTIN) 875-125 MG per tabletIndications: LLQ pain Take 1 tablet by mouth 2 (two) times a day. 20 tablet 3 Active calcium gluconate 9.3 mg/mL Ca++ Take 1 capsule by mouth daily. Active buPROPion (WELLBUTRIN XL) 300 MG 24 hr tabletIndications: Anxiety Take 1 tablet (300 mg total) by mouth every morning. Swallow whole; do not crush, chew, or divide. 90 tablet 1 3 Active simvastatin (ZOCOR) 80 MG tabletIndications: Hyperlipidemia, unspecified hyperlipidemia type TAKE 1 TABLET BY MOUTH EVERY NIGHT 90 tablet 3 3 Active LORazepam (ATIVAN) 2 MG tabletIndications: Insomnia, unspecified type TAKE 1 TABLET BY MOUTH AT 8PM FOR SLEEP. THEN TAKE A SECOND TABLET NEEDED UPON AWAKENING AT 1AM 60 tablet 3 Active sildenafil (VIAGRA) 50 MG tabletIndications: Erectile dysfunction, unspecified erectile dysfunction type TAKE 1 TABLET BY MOUTH DAILY NEEDED FOR ERECTILE DYSFUNCTION. 10 tablet 1 3 Active losartan (COZAAR) 50 MG tabletIndications: Hypertension, unspecified type TAKE 1 TABLET BY MOUTH EVERY DAY 90 tablet 1 4 Active Active Problems Problem Noted Date Diagnosed [...] is to monitor no active medications Immunizations Immunization Administration Dates Next Due Covid-19 MRNA Vaccine [...] Done Comments Hepatitis C Virus Screening 1965 Foot Exam 1975 Ophthalmology Exam 1975 HIV [...] exists Microalbumin/Creatinine Rati o Urine 06/06/2023 06/06/2022 COVID-19 Vaccine (2023-2 5 season) 2024 07/18/2021, 10/20/2020, 09/29/2020 Influenza Vaccine 02/13/2025 07/18/2021, , 03/19/2012 Procedures Procedure Name Priority Date/Time Associated Diagnosis [...] Creatinine, Urine, Random (06/06/2022 8:55 AM EST) Creatinine, Urine, Random 242 20 - 320 mg/dL [facility] Microalbumin, Urine, Random 12.1 See Note: mg/dL [facility] Comment: Reference Range: Reference Range Not established Microalbumin/Creat inine Ratio 50(H) <30 mcg/mg creat [facility] Comment: The ADA defines abnormalities in albumin [...] 06/07/2022 4:59 PM EST FASTING:YES FASTING: YES us Orlin Chambers MD URINE ORDERABLES Final Result [employer] [address] [place] [address], [place] [address] * (ABNORMAL) Hemoglobin A1c (06/06/2022 8:55 AM EST) Hemoglobin A1C 6.5(H) <5.7 % of total Hgb [facility] Comment: For someone without known diabetes, a [...] 06/07/2022 4:59 PM EST FASTING:YES FASTING: YES us Orlin Chambers MD LAB BLOOD ORDERABLES Final Re sult Performing Organization Address [facility]/ZIP Co de Phone Number [employer] [address], [place] [address] * (ABNORMAL) Basic Metabolic Panel (06/06/2022 8:55 AM EST) Glucose 129(H) 65 - 99 mg/dL [facility] Comment: ? Fasting reference interval For someone without known diabetes, a glucose value >125 mg/dL indicates that they may have diabetes and this should be confirmed with a follow-up test. Blood Urea Nitrogen (BUN) 33(H) 7 - 25 mg/dL [facility] Creatinine 1.49(H) 0.70 - 1.30 mg/dL [facility] Creatinine w/ eGFR 54(L) > OR = 60 mL/min/1.7 3m2 [facility] Comment: The eGFR is based on the CKD-EPI 2020 equation. To calculate the new eGFR from a previous Creatinine or Cystatin C result, go to https://www.kidney.org/professionals/ kdoqi/gfr%5Fcalculator BUN/Creatinine Ratio 22 6 - 22 (calc) [facility] Sodium 139 135 - 146 mmol/L [facility] Potassium 4.1 3.5 - 5.3 mmol/L [facility] Chloride 102 98 - 110 mmol/L [facility] CO2 27 20 - 32 mmol/L [facility] Calcium 9.5 8.6 - 10.3 mg/dL [facility] Blood specimen (specimen) 06/06/2022 8:55 AM EST 06/06/2022 8:55 AM EST Narrative [facility] - 06/07/2022 4:59 PM EST FASTING:YES FASTING: YES Orlin Chambers MD LAB BLOOD ORDERABLES Final Re sult Performing Organization Address [facility]/ZIP Co de Phone Number [employer] [address], [place] [address] * (ABNORMAL) Lipid Panel Reflex Direct LDL (12/07/2021 8:13 AM EDT) Cholesterol, Total 191 <200 mg/dL [facility] Cholesterol, HDL 48 > OR = 40 mg/dL [facility] Triglycerides 237(H) <150 mg/dL [facility] Comment: If a non-fasting specimen was collected, consider repeat triglyceride testing on a fasting specimen if clinically indicated. Chris et al. J. of Clin. Lipidol. 2015;9:129-169. LDL Cholesterol 107(H) mg/dL (calc) [facility] Comment: Reference range: <100 Desirable range <100 mg/dL for primary prevention; ?? <70 mg/dL for patients with CHD or diabetic patients with > or = 2 CHD risk factors. LDL-C is now calculated using the Michael-Rosario calculation, which is a validated novel method providing better accuracy than the Friedewald equation in the estimation of LDL-C. Michael SS et al. ELSY. 2013;310(19): 4738-1000 (http://education.Fieldglass/faq/NGD640) Cholesterol/HDL Ratio 4.0 <5.0 (calc) [facility] Non HDL Chol. (LDL+VLDL) 143(H) <130 mg/dL (calc) [facility] Comment: For patients with diabetes plus 1 major ASCVD risk factor, treating to a non-HDL-C goal of <100 mg/dL (LDL-C of <70 mg/dL) is considered a therapeutic option. Blood specimen (specimen) 12/07/2021 8:13 AM EDT 12/07/2021 8:13 AM EDT Narrative [facility] - 12/08/2021 12:09 AM EDT FASTING:YES FASTING: YES us Orlin Chambers MD LAB BLOOD ORDERABLES Final Re sult [employer] [address], [place] [address] * CT Thorax w/o contrast (05/29/2019 9:23 [...] your patient to us, Travis Villarreal MD [phone] (Electronically Signed - 05/29/2019 09:23) Copy: ORLIN CHAMBERS DO [facility] 10 100 [place] [address] PATIENT , ?? Narrative 05/29/2019 9:23 AM EST EXAMINATION: CT CHEST WITHOUT CONTRAST CLINICAL INFORMATION: Left lower lobe pulmonary nodule. COMPARISON: No relevant prior studies are available for comparison. TECHNIQUE: Multidetector volumetric CT imaging of the chest was done. Axial MIP volume rendering provided. Sagittal and coronal reformatted images were obtained. DLP: 523.69 mGy-cm FINDINGS: EXCAVATING MACHINE OPERATOR: Unremarkable. LUNGS: There is a 3 mm [...] images were obtained. DLP: 523.69 mGy-cm FINDINGS: EXCAVATING MACHINE OPERATOR: Unremarkable. LUNGS: There is a 3 mm [...] interval change. According to the UPDATED 2017 [facility] recommendations, the advised follow up imaging [...] your patient to us, Travis Villarreal MD [id number] (Electronically Signed - 05/29/2019 09:23) Copy: ORLIN CHAMBERS DO [facility] 10 100 [place] [address] PATIENT , Kelly Bustillo MD IMG CT ORDERABLES Final Result from Last 3 Months or Most Recently Relevant to Health Maintenance Insurance [employer] MEDICARE Care Teams Otr Company Truck Driver Relationship Specialty Start Date End Date [facility] 11/23/21
--- OUTSIDE RECORDS SUMMARY | 2024-11-18 07:58 | XMS_ITS | Encounter Summary ---
Author Organization [facility] Address [address] [place] [address] Care Team Providers Care Tafe Registrar Name Role Phone Orlin Chambers MD Primary Care Provider Encounter Details Date Type Department Care Team (Late st Contact Info) Description 01/30/2023 Scanned Document [facility] ORTHO SURGERY SCAN [place] [address] [place] [address] Social History Tobacco Use Types Packs/Day Years [...] on filedocumented in this encounter Care Teams Tafe Registrar Relationship Specialty Start Date End Date Orlin Chambers MD [address] [place] [address] PCP - General Family Medicine 01/29/19 08/16/23 Juma Harrington [facility] Pulmonary Medicine 11/23/21 documented as of this encounter
--- OUTSIDE RECORDS SUMMARY | 2024-11-18 07:58 | XMS_ITS | Encounter Summary ---
Author Organization [facility] Address [address] [place] [address] Care Team Providers Care Wheel Presser Name Role Phone Orlin Chambers MD Primary Care Provider [phone] Encounter Details Date Type Department Care Team [...] on filedocumented in this encounter Care Teams Wheel Presser Relationship Specialty Start Date End Date Orlin Chambers MD [address] [place] [address] PCP - General Family Medicine 01/29/19 08/16/23 Juma Harrington [facility] Pulmonary Medicine 11/23/21 documented as of this encounter
--- OUTSIDE RECORDS SUMMARY | 2024-11-18 07:58 | XMS_ITS | Clinical Summary ---
Author Organization [facility] [email or web address] [facility] Address [address] [place] [address] Care Team Providers Care Section Weaver Name Role Phone Orlin Chambers DO Primary Care Provider [phone] Surgical History Surgery Date Site/Laterality Comments WISDOM TOOTH EXTRACTION PROCEDURE:WISDOM TOOTH EXTRACTION KNEE ARTHROSCOPY 06/03/2019 Left PROCEDURE:KNEE ARTHROSCOPY;COMMENT:Procedure: LEFT KNEE ARTHROSCOPY, PARTIAL MEDIAL MENISCECTOMY; Surgeon: David Pack MD; Location: [facility] AMBUL[facility]ORY SURGERY; Service: [facility]; Laterality: Left; [...] age to complete this topic Care Teams Section Weaver Relationship Specialty Start Date End Date Orlin Chambers DO [address] [place] [address] PCP - General Family Medicine 06/17/18
--- OUTSIDE RECORDS SUMMARY | 2024-11-18 07:58 | XMS_ITS | Encounter Summary ---
Author Organization [facility] Address [address] [place] [address] Care Team Providers Care Orchestra Director Name Role Phone Orlin Chambers MD Primary Care Provider [phone] Encounter Details Date Type Department Care Team (Late st Contact Info) Description 12/06/2022 Scanned Document [facility] [address] [address] Cardiology, Scan Social History Tobacco Use [...] on filedocumented in this encounter Care Teams Orchestra Director Relationship Specialty Start Date End Date Orlin Chambers MD [address] [place] [address] PCP - General Family Medicine 01/29/19 08/16/23 Juma Harrington [facility] Pulmonary Medicine 11/23/21 documented as of this encounter
--- OUTSIDE RECORDS SUMMARY | 2024-11-18 07:58 | XMS_ITS | Encounter Summary ---
Author Organization [facility] Address [address] [place] [address] Care Team Providers Care Curator Of Collections Name Role Phone Orlin Chambers MD Primary Care Provider Encounter Details Date Type Department Care Team (Late st Contact Info) Description 01/29/2019 Scanned Document [facility] 10 100 [facility] [address] [place] [address] Provider, Hortencia, [address] [place] [address] Social History Tobacco Use Types Packs/Day Years [...] on filedocumented in this encounter Care Teams Curator Of Collections Relationship Specialty Start Date End Date Orlin Chambers MD 100 [facility] [address] [place], [place] [id number] PCP - General Family Medicine 01/29/19 08/16/23 Juma Harrington [facility] Pulmonary Medicine 11/23/21 documented as of this encounter
[2024-11-18 08:06] VITALS: BP 126/82; PULSE 80; O2SAT 94
--- NOTE | 2024-11-18 08:06 | MHC.OFFWIV ---
Intake Vital Signs 11/18/24 08:06 Weight 240 lb BP 126/82 Blood Pressure Location Rt brachial Position Sitting Pulse 80 Pulse Source Pulse Oximeter Pulse Oximetry (%) 94 Oxygen Delivery Method Room Air Intake Visit Reasons: EP severe LT hip pain going down toward ankle Intake Note: Patient here for left hip pain that radiates down the leg and making it difficult to walk or sleep. Patient Tobacco Use Status: Former Tobacco user Allergies No Known Allergies [No Known Allergies*] Allergy (Verified 11/18/24 08:08) Do you need a note to return to daycare/school/sports/work: No HPI HPI Comments History of Present Illness Details This is a 59-year-old male with a past medical history of uqk-wophghj-dhaiyckqa diabetes, hypertension and hyperlipidemia presenting for evaluation of pain radiating from his left hip to his left ankle. Patient states that he woke up with his pain on Sunday morning and denies any injury or trauma preceding the onset of his symptoms. Patient states lying or sitting down improves the pain and he has been taking ibuprofen and Tylenol. Patient describes the pain as a dull and sharp like pain and denies any low back pain, numbness or tingling. [facility] Medical History Lower extremity edema Dyspnea ТАТЬЯНА (obstructive sleep apnea) Pulmonary nodules Obese Personal history of nicotine dependence Erectile dysfunction HLD (hyperlipidemia) Type 2 diabetes mellitus HTN (hypertension) Surgical History History of repair of right rotator cuff History of left knee surgery History of colonoscopy Family History Mother Lung cancer Father Diabetes Bladder cancer Heart attack Brother Hypertension Diabetes Maternal Grandmother Hypertension Arthritis Maternal Aunt Family history of malignant neoplasm of female breast Social History Household Members: Family Housing: House Do you presently have visiting nurse or other home services: No Alcohol intake: never Patient Tobacco Use Status: Former Tobacco user Years Smoked: (onset 16yo, 1.5ppd x 35yrs, 50pyh, quit 2015) e-Cigarette/Vaping Use: Never Used service: No Current occupational status: employed Cognitive needs: No Hearing needs: No Vision needs: Yes Review of Systems Const All systems reviewed & are unremarkable except as noted in HPI and below Reports no additional complaints and Denies weakness Eyes Reports no additional complaints ENT Reports no additional complaints and Denies disequilibrium Card Reports no additional complaints Resp Reports no additional complaints GI Reports no additional complaints Reports no additional complaints Musc Reports as per HPI, Denies abnormal gait, Denies back pain, Denies arthralgias, Denies numbness, Denies tingling and Reports other (Pain radiating down left lower extremity) Skin/Breast Reports system reviewed and no additional complaints, except as documented Neuro Reports no additional complaints, Denies abnormal gait, Denies lack of coordination, Denies focal weakness, Denies numbness, Reports radicular pain, Denies tingling, Denies disequilibrium and Denies weakness Psych Reports as per HPI Endo Reports as per HPI Awais/Lymph Reports as per HPI Aller/Immun Reports as per HPI Physical Exam Const General: cooperative, healthy appearing, comfortable, no acute distress, well developed, alert, awake and Physically active Nutritional Appearance: well nourished Orientation/consciousness: patient oriented x3 Limitations: no limitations General: Yes no CVA tenderness Back/Spine/Pelvis Back: no CVA tenderness and back tenderness (Left lumbar paraspinous tenderness) Thoracic/Lumbar Spine: thoracic and lumbar spine normal to inspection, thoraco-lumbar ROM normal, paraspinal muscle tenderness (lumbar) on the left in the mid lumbar, No thoracic spinal tenderness, No lumbar spinal tenderness and No straight leg raise positive Sacroiliac joints: on the left nontender Sacrum: no ecchymosis Skin General skin exam: no rashes or lesions noted Neuro General: patient oriented x3 Motor exam (neuro): 5/5 motor strength present throughout, Normal motor muscle tone present throughout and strength normal Extrem Other: Patient ambulating independently, no ataxia, there is pain to palpation of the left paraspinous mid lumbar musculature, no midline tenderness, no sciatic notch tenderness, 5/5 strength with dorsiflexion and plantar flexion of the feet bilaterally Psych Appearance: grossly normal Mental Status: mental status grossly normal Insight: Good insight present (Psych) Judgement: Good judgement present (Psych) Assessment & Plan Assessment & Plan (1) Lumbar radiculopathy, acute: Comment: Patient's history coupled with his examination is consistent with a left lumbar radiculopathy. Patient will be discharged home with anti-inflammatories and muscle relaxants. Code(s): M54.16 - Radiculopathy, lumbar region Plan: Naprosyn 500 mg b.i.d., methocarbamol 750 q.8 hours PRN. Patient will follow up with his primary care provider in 7-10 days if his symptoms persist to obtain a referral for physical therapy consultation. Medications: New naproxen (EC-Naprosyn) 500 mg PO BID 20 tabs 0RF methocarbamol 750 mg PO Q8H 20 tabs 0RF Coding Level of Care Code Est Pt Level 4 (34785) Diagnoses Lumbar radiculopathy, acute M54.16 Time Spent (min) 20
== END 2024-11-18 08:45 | disposition home or self-care (01) ==
PROVIDERS: PCP Physician Assistant; Visit Provider Physician Assistant
DX: M54.16 Radiculopathy, lumbar region (principal)

== ENCOUNTER → 2024-11-18 07:55 | Outpatient (BNVA) | payer OTHER, SELFPAY | PROVIDERS: PCP Physician Assistant; Visit Provider Physician Assistant ==

== ENCOUNTER 2024-11-26 06:42 | Outpatient (REF) | payer OTHER, SELFPAY ==
--- NOTE | ~2024-11-26 | XR_ITS ---
EXAMINATION: Lumbar spine 4 views. CLINICAL INDICATION: Lumbar radiculopathy. COMPARISON: MRI lumbar spine 08/20/2020. FINDINGS: There is normal lumbar lordosis. There is mild levoscoliosis. The vertebral heights and alignment is normal. There are degenerative disc changes with spondylosis throughout lumbar spine. No visible acute fracture, dislocation or subluxation seen. SI joints are symmetrical and normal. No aggressive lytic or sclerotic process seen. XR/XR lumbar spine 4V min IMPRESSION: Degenerative disc changes throughout lumbar spine with ventral spondylosis. No visible acute fracture or dislocation seen. Electronically signed by: Valeriy Goodman MD 11/26/2024 08:06 AM EDT
--- OUTSIDE RECORDS SUMMARY | 2024-11-26 06:45 | XMS_ITS | Encounter Summary ---
Author Organization [facility] Address [address] [place] [address] Care Team Providers Care Cartridge Filler Name Role Phone Orlin Chambers MD Primary Care Provider Encounter Details Date Type Department Care Team (Late st Contact Info) Description 02/27/2023 Scanned Document [facility] EMERGENCY MED SCAN Emergency Medicine, [...] on filedocumented in this encounter Care Teams Cartridge Filler Relationship Specialty Start Date End Date Orlin Chambers MD [address] [place] [address] PCP - General Family Medicine 01/29/19 08/16/23 Juma Harrington [facility] Pulmonary Medicine 11/23/21 documented as of this encounter
--- OUTSIDE RECORDS SUMMARY | 2024-11-26 06:45 | XMS_ITS | Encounter Summary ---
Author Organization [facility] Address [address] [place] [address] Care Team Providers Care Materials Planning Analyst Name Role Phone Orlin Chambers MD Primary Care Provider Encounter Details Date Type Department Care Team (Late st Contact Info) Description 09/08/2020 Scanned Document [facility] [address] [place] [address] Provider, External, [address] [place] [address] Social History Tobacco Use Types Packs/Day Years [...] on filedocumented in this encounter Care Teams Materials Planning Analyst Relationship Specialty Start Date End Date Orlin Chambers MD 100 [place] [address] PCP - General Family Medicine 01/29/19 08/16/23 Juma Harrington [facility] Pulmonary Medicine 11/23/21 documented as of this encounter
--- OUTSIDE RECORDS SUMMARY | 2024-11-26 06:45 | XMS_ITS | Encounter Summary ---
Author Organization [facility] Address [address] [place] [address] Care Team Providers Care Test Architect Name Role Phone Orlin Chambers MD Primary Care Provider [phone] Encounter Details Date Type Department Care Team (Late st Contact Info) Description 12/06/2022 Scanned Document [facility] [address] [address] Cardiology, Scan Social History Tobacco [...] on filedocumented in this encounter Care Teams Test Architect Relationship Specialty Start Date End Date Orlin Chambers MD [address] [place] [address] PCP - General Family Medicine 01/29/19 08/16/23 Juma Harrington [facility] Pulmonary Medicine 11/23/21 documented as of this encounter
--- OUTSIDE RECORDS SUMMARY | 2024-11-26 06:45 | XMS_ITS | Data Portability ---
Author Organization [facility], Main Office Address [address] [place] [address] Care Team Providers Care Floral Decorator Name Role Phone RYAN BUSTOS Primary Care [...] or plasm a [address] [facility] Not available 4 19:52:00 Referral gastr marjorie fong ist refer ral 2015 016 jourdan [facility], [address] [place], [address], 6 11:02:[address]/di etiti an refer ral [address] [facility] Not available 6 21:59:[address]/di etiti an refer ral [address] [facility] Not available 4 19:52:00 Procedures colon oscop y scree farhana (PROC ) - Due for scree nign colon oscop y and has had diver tic x 2 in last 6 month s. 2014 [email or web address] [address] [place] [address], [address], 6 11:22:40 Surgeries None recor ded. Imaging elect arvin lópez am [address] [facility] In-Office Order, Internal Use Only DO Not Attach Compendium DO Not Attach Compendium, Do Not Delete/merge, [id number] 6 21:59:57 Medication Orders bupro pion HCl XL 300 mg 24 hr table t, exten ded relea se [address] [id number], [address], [place], [address], 6 21:59:58 omepr azole 20 mg table t,bryan ny relea se [address] [id number], [address] [place], [address], 6 21:59:57 simva stati n 80 mg table t [address] [id number], [address] [place], [address], 6 21:59:57 chlor thali done 25 mg table t [address] [id number], [address] [place], [address], 6 21:59:57 Cipro 500 mg table t 2014 015 [email or web address] os [id number], [address] [place], [address], 6 09:13:40 metro nidaz ole 500 mg table t 2014 015 [email or web address] os [id number], [address] [place], [address], 6 09:13:40 Patient Targets Encounter Date Encounter Id Patient Goals Patient Target Last Modified By Organization Details Last Modified Time 05/12/2014 [id number] Ongoing of Microalbumin/Cr eatinine Ratio yearly Not [...] and/or readings to your appointments 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 [facility] Not available 08/25/2015 21:59:58 Patient Instructions Encounter Date Encounter Id Patient Instructions Last Modified By Organization Details Last Modified Time 05/12/2014 [id number] deciding about u sing medicines to quit smoking phelmuth Not available 05/14/2014 19:52:00 Quitting Tobacco : [facility] 05/14/2014 19:52:00 low back pain: exercises pheuth Not available 05/14/2014 19:52:00 exercise program : getting started pheuth Not available 05/14/2014 19:52:00 high blood press ure: care instructions [facility] Not available 05/14/2014 19:52:00 learning about h igh blood pressure [facility] Not available 05/14/2014 19:52:00 starting a weigh t loss plan: care instructions [facility] Not available 05/14/2014 19:52:00 Nutrition Referr al and Weight Management Follow-up Information [facility] Not available 05/14/2014 19:52:00 Medications were reviewed at this visit and reconciled. Changes in the active medications are reflected in the current medication list and discussed with patient (or caregiver) with instructions for follow up as needed. Printed medication list provided to the patient as part of the visit summary. [facility] Not available 05/14/2014 19:51:49 11/02/2014 [id number] diverticulitis: care instructions [email or web address] Not available 11/02/2014 10:30:33 learning about diverticulosis and diverticulitis [email or web address] Not available 11/02/2014 10:30:33 PT to FU with PC P in 1 month, beforehand if persistent of worsening pain, fever, vomiting, bloody/black stool.? ? ? [email or web address] Not available 11/02/2014 10:30:02 05/28/2015 [id number] Colon Cancer Screening [facility] [email or web address] Not available 05/31/2015 15:33:50 learning about c olon cancer phelmuth Not available 05/29/2015 12:23:20 To call or retur n for worsening or concerns [email or web address] Not available 05/28/2015 16:41:03 Go to ER if worsening abdominal pain, fever or persistent vomiting. I have reviewed the note and agree with the assessment and plan of care. phelmuth Not available 05/29/2015 12:23:21 08/25/2015 [id number] deciding about u sing medicines to quit smoking phelmuth Not available 08/25/2015 21:59:57 Quitting Tobacco : Care Instructions [facility] Not available 08/25/2015 21:59:58 gastroesophageal reflux disease (GERD): [facility] Not available 08/25/2015 21:59:57 learning about h igh blood sugar phelm[facility] Not available 08/25/2015 21:59:57 fatigue: [facility] Not available 08/25/2015 21:59:57 Colon Cancer Screening [facility] Not available 08/25/2015 21:59:57 learning about c olon cancer phelmuth Not available 08/25/2015 21:59:57 high blood press ure: [facility] Not available 08/25/2015 21:59:57 learning about h igh blood pressure phelmuth Not available 08/25/2015 21:59:57 starting a weigh t loss plan: [facility] Not available 08/25/2015 21:59:57 Nutrition Referr al and Weight Management Follow-up Information [facility] Not available 08/25/2015 21:59:57 Continue to emi tor home blood pressures and bring to next appointment. [facility] Not available 08/25/2015 10:11:42 Medications were reviewed at this visit and reconciled. Changes in the active medications are reflected in the current medication list and discussed with patient (or caregiver) with instructions for follow up as needed. Printed medication list provided to the patient as part of the visit summary. [facility] Not available 08/25/2015 10:11:42 Reason for Referral Supervisor Wet Room/dietitian Refer ral for Body mass index 30+ - obesity Referring Physician: Ryan Bustos, Internal Medicine, Encounter Date: 05/12/2014 Referring Physician: Ryan dean, Internal Medicine, Encounter Date: 08/25/2015 Supervisor Wet Room/dietitian Refer ral for Body mass index 30+ [...] DO Not Attach Compendium, Do Not Delete/merge, [id number] 08/25/2015 09:20:03 08/25/19 16 08/25/2015 elect rocar diogr am QRS Not Available In-Office Order Internal Use Only DO Not Attach Compendium DO Not Attach Compendium, Do Not Delete/merge, [id number] 08/25/2015 09:20:03 08/25/19 16 08/25/2015 elect rocar diogr am MD Interval Not Available In-Off ice Order Internal Use Only DO Not Attach Compendium DO Not Attach Compendium, Do Not Delete/merge, [id number] 08/25/2015 09:20:03 08/25/19 16 08/25/2015 elect rocar diogr am QRS Duration Not Available In-Of fice Order Internal Use Only DO Not Attach Compendium DO Not Attach Compendium, Do Not Delete/merge, [id number] 08/25/2015 09:20:03 08/25/19 16 08/25/2015 elect rocar diogr am QT Interval Not Available In-Off ice Order Internal Use Only DO Not Attach Compendium DO Not Attach Compendium, Do Not Delete/merge, [id number] 08/25/2015 09:20:03 05/12/20 14 05/12/2014 lipid panel , serum cholesterol, total 154 mg/dL (<200) Not Available [facility] (Centralized Electronic Ordering - All Locations) Patient Can Go To The Location Of Their Choice, [id number] 05/25/2014 15:11:14 05/12/20 14 05/12/2014 lipid panel , serum triglyceride 118 mg/dL (<150) Not Available [facility] (Centralized Electronic Ordering - All Locations) Patient Can Go To The Location Of Their Choice, [id number] 05/25/2014 15:11:14 05/12/20 14 05/12/2014 lipid panel , serum HDL chol 45 mg/dL (>39) Not Available [facility] (Centralized Electronic Ordering - All Locations) Patient Can Go To The Location Of Their Choice, [id number] 05/25/2014 15:11:14 05/12/20 14 05/12/2014 lipid panel , serum LDL cholesterol, calculated 85 mg/dL (0-130 ) Not Available [facility] (Centralized Electronic Ordering - All Locations) Patient Can Go To The Location Of Their Choice, [id number] 05/25/2014 15:11:14 05/12/20 14 05/12/2014 lipid panel , serum non HDL cholesterol (calc) 109 mg/dL (<160) Not Available [facility] (Centralized Electronic Ordering - All Locations) Patient Can Go To The Location Of Their Choice, [id number] 05/25/2014 15:11:14 05/12/20 14 05/12/2014 BMP, serum or plasm a glucose 89 mg/dL (70-99 ) Not Available [facility] (Centralized Electronic Ordering - All Locations) Patient Can Go To The Location Of Their Choice, [id number] 05/25/2014 15:11:13 05/12/20 14 05/12/2014 BMP, serum or plasm a BUN 21 mg/dL (6-20) high Not Available [facility] (Centralized Electronic Ordering - All Locations) Patient Can Go To The Location Of Their Choice, [id number] 05/25/2014 15:11:13 05/12/20 14 05/12/2014 BMP, serum or plasm a creatinine 1.1 mg/dL (0.7-1 .2) Not Available [facility] (Centralized Electronic Ordering - All Locations) Patient Can Go To The Location Of Their Choice, [id number] 05/25/2014 15:11:13 05/12/20 14 05/12/2014 BMP, serum or plasm a sodium 140 mmol/ L (133-1 45) Not Available [facility] (Centralized Electronic Ordering - All Locations) Patient Can Go To The Location Of Their Choice, [id number] 05/25/2014 15:11:13 05/12/20 14 05/12/2014 BMP, serum or plasm a potassium 4.3 mmol/ L (3.6-5 .2) Not Available [facility] (Centralized Electronic Ordering - All Locations) Patient Can Go To The Location Of Their Choice, [id number] 05/25/2014 15:11:13 05/12/20 14 05/12/2014 BMP, serum or plasm a chloride 99 mmol/ L (98-10 7) Not Available [facility] (Centralized Electronic Ordering - All Locations) Patient Can Go To The Location Of Their Choice, [id number] 05/25/2014 15:11:13 05/12/20 14 05/12/2014 BMP, serum or plasm a bicarbonate 30 mmol/ L (22-29 ) high Not Available [facility] (Centralized Electronic Ordering - All Locations) Patient Can Go To The Location Of Their Choice, [id number] 05/25/2014 15:11:13 05/12/20 14 05/12/2014 BMP, serum or plasm a anion gap 11 (4-17) Not Available [facility] (Centralized Electronic Ordering - All Locations) Patient Can Go To The Location Of Their Choice, [id number] 05/25/2014 15:11:13 05/12/20 14 05/12/2014 BMP, serum or plasm a calcium 9.9 mg/dL (8.6-1 0.5) Not Available [facility] (Centralized Electronic Ordering - All Locations) Patient Can Go To The Location Of Their Choice, [id number] 05/25/2014 15:11:13 05/12/20 14 05/12/2014 BMP, serum [...] Go To The Location Of Their Choice, [id number] 05/25/2014 15:11:13 05/12/20 14 05/12/2014 BMP, serum [...] Go To The Location Of Their Choice, [id number] 05/28/2015 19:59:07 05/28/2005/28/2015 CBC w/ auto diff [...] No observ ation record ed. [facility] Not Available 2015 09:50:37 08/25/19 16 carol lópez am No observ ation record ed. [facility] Not Available 2015 09:41:39 Result Notes None recorded. Problems Name Problem SNOMED Code Status Onset Date Resolution Date Notes Provider Name and Address Organization Details Recorded Time Sprains and strains of joints and adjacent muscles Completed 201102/19/2014 RECORDED 04/23/20 12 9:33AM BY DIXON [place], ANNOTATI ON/ADDEN DUM BLAYNE Hurtado, [facility] 6 09:33:55 Bicipita l tenosyno vitis 90287563 Completed 201202/19/2014 IMPRESSI ON: AT ATTACHME NT AT ELBOW. CONTINUE ALEVE; RECORDED 10/24/19 13 10:00AM BY HIEN MANNING MA, ANNOTATI ON/ADDEN DUM BLAYNE Hurtado, [facility] 6 09:33:55 Carpal tunnel syndrome 63499210 Active 2013 BLAYNE Hurtado, [facility] 6 09:33:55 Chest pain 81320540 Completed 201102/19/2014 RECORDED 04/23/20 12 9:33AM BY DIXON [place] MA, ANNOTATI ON/ADDEN DUM BLAYNE Hurtado, [facility] 6 09:33:55 Closed fracture of lower end of radius AND ulna 47006272 Completed 200802/19/2014 RECORDED 05/20/20 09 8:20AM BY RYAN BUSTOS MD, ANNOTATI ON/ADDEN DUM BLAYNE Hurtado, [facility] 6 09:33:55 Disorder of kidney and/or ureter 853512992 Completed 200802/19/2014 IMPRESSI ON: CREATINI NE 1.4 (11/2006) ; RECORDED 05/20/20 09 8:20AM BY RYAN BUSTOS MD, ANNOTJEANNIE ON/ADDEN DUM BLAYNE Hurtado, [facility] 6 09:33:55 Edema 137395827 Completed 200802/19/2014 RECORDED 05/20/20 09 7:44AM BY HIEN MANNING MA, ANNOTATI ON/ADDEN DUM BLAYNE Hurtado, [facility] 6 09:33:55 Influenz a vaccine needed [id number] 06 Completed 201102/19/2014 RECORDED 03/19/20 12 8:37AM BY NADYA CAMILO, OFFICE VISIT BLAYNE Hurtado, [facility] 6 09:33:55 Follow-u p encounte r Completed 201102/19/2014 RECORDED 03/19/20 12 8:24AM BY LETTY LUNA ON/ADDEN DUM BLAYNE [place], [facility] 6 09:33:55 Adult health examinat ion Completed 201102/19/2014 RECORDED 04/23/20 12 9:33AM BY DIXON [place] MA, ANNOTATI ON/ADDEN DUM BLAYNE Hurtado, [facility] 6 09:33:55 General examinat ion of patient Completed 200702/19/2014 RECORDED 07/14/20 08 7:03AM BY LETTY FU ON/ADDEN DUM BLAYNE Hurtado, [facility] 6 09:33:55 Hypercho lesterol emia 76288769 Completed 201202/19/2014 RECORDED 11/26/19 13 1:46PM BY DIXON [place] ANNOTJEANNIE ON/ADDEN DUM HienBLAYNE Sloan [facility] 6 09:33:54 Hypersom donis 45307061 Completed 201102/19/2014 RECORDED 06/18/20 12 7:23AM BY LETTY BERNAL ON/[facility] 6 09:[facility] Epidermo id cyst of skin 118423896 Completed 201102/19/2014 RECORDED 03/19/20 12 8:24AM BY LETTY LUNA ON/ADDEN DUM [facility] 6 09:33:55 Renewal of prescrip tion Completed 201202/19/2014 RECORDED 11/26/19 13 1:46PM BY DIXON [place] MA, LETTY ON/ADDEN DUM [facility] 6 09:33:55 Administ ration of bacteria l and viral vaccine Completed 200702/19/2014 RECORDED 03/31/20 08 7:18AM BY HIEN MANNING MA, OFFICE VISIT [facility] 6 09:33:55 Hyperhid rosis 414014712 Completed 201102/19/2014 RECORDED 04/23/20 12 9:33AM BY DIXON [place] MA, LETTY ON/ADDEN DUM [facility] 6 09:33:55 Tobacco user [id number] Completed 201102/19/2014 RECORDED 03/19/20 12 8:24AM BY LETTY LUNA ON/ADDEN DUM BLAYNE Hurtado, [facility] 6 09:33:55 Sprain of foot 97269691 Completed 201102/19/2014 RECORDED 03/19/20 12 8:24AM BY LETTY LUNA ON/ADDEN DUM [facility] 6 09:33:55 Sprains and strains of joints and adjacent muscles Completed 201102/20/2014 RECORDED 04/23/20 12 9:33AM BY DIXON [place] MA, LETTY ON/ADDEN DUM BLAYNE Hurtado, [facility] 6 09:33:55 Bicipita l tenosyno vitis 44646901 Completed 201202/20/2014 IMPRESSI ON: AT ATTACHME NT AT ELBOW. CONTINUE ALEVE; RECORDED 10/24/19 13 10:00AM BY HIEN MANNING MA, LETTY ON/ADDEN DUM BLAYNE Hurtado, [facility] 6 09:33:55 Chest pain 43208965 Completed 201102/20/2014 RECORDED 04/23/20 12 9:33AM BY DIXON [place] MA, ELTTY ON/ADDEN DUM [facility] 6 09:33:55 Closed fracture of lower end of radius AND ulna 16685545 Completed 200802/20/2014 RECORDED 05/20/20 09 8:20AM BY RYAN BUSTOS MD, LETTY ON/ADDEN DUM BLAYNE Hurtado, [facility] 6 09:33:55 Disorder of kidney and/or ureter 628206661 Completed 200802/20/2014 IMPRESSI ON: CREATINI NE 1.4 (11/2006) ; RECORDED 05/20/20 09 8:20AM BY RYAN BUSTOS MD, ANNOTJEANNIE ON/ADDEN DUM BLAYNE Hurtado, [facility] 6 09:33:55 Edema 381613622 Completed 200802/20/2014 RECORDED 05/20/20 09 7:44AM BY HIEN MANNING MA, ANNOTATI ON/ADDEN DUM Hien Nicole-M BLAYNE rico, [facility] 6 09:33:55 Influenz a vaccine needed [id number] 06 Completed 201102/20/2014 RECORDED 03/19/20 12 8:37AM BY NADYA CAMILO, OFFICE VISIT BLAYNE Hurtado, [facility] 6 09:33:55 Follow-u p encounte r Completed 201102/20/2014 RECORDED 03/19/20 12 8:24AM BY LETTY LUNA ON/ADDEN DUM Hien Rivera[facility] 6 09:33:55 Adult health examinat ion Completed 201102/20/2014 RECORDED 04/23/20 12 9:33AM BY DIXON [place] MA, ANNOTATI ON/ADDEN DUM [facility] 6 09:33:55 General examinat ion of patient Completed 200702/20/2014 RECORDED 07/14/20 08 7:03AM BY LETTY FU ON/ADDEN DUM Hien Nicole-BLAYNE Humphrey, [facility] 6 09:33:55 Hypercho lesterol emia 12449232 Completed 201202/20/2014 RECORDED 11/26/19 13 1:46PM BY DIXON [place] MA, ANNOTATI ON/ADDEN DUM Hien Nicole[facility] 6 09:33:54 Hypersom donis 98531171 Completed 201102/20/2014 RECORDED 06/18/20 12 7:23AM BY LETTY BERNAL ON/ADDBLAYNE Neri, [facility] 6 09:33:55 Epidermo id cyst of skin 542311179 Completed 201102/20/2014 RECORDED 03/19/20 12 8:24AM BY LETTY LUNA ON/ADDEN DUM BLAYNE Hurtado, [facility] 6 09:33:55 Renewal of prescrip tion Completed 201202/20/2014 RECORDED 11/26/19 13 1:46PM BY DIXON [place] MA, LETTY ON/ADDEN DUM BLAYNE Hurtado, [facility] 6 09:33:55 Administ ration of bacteria l and viral vaccine Completed 200702/20/2014 RECORDED 03/31/20 08 7:18AM BY HIEN MANNING MA, OFFICE VISIT BLAYNE Hurtado, [facility] 6 09:33:55 Hyperhid rosis 648229286 Completed 201102/20/2014 RECORDED 04/23/20 12 9:33AM BY DIXON [place] MA, LETTY ON/ADDEN DUM [facility] 6 09:33:55 Tobacco user [id number] Completed 201102/20/2014 RECORDED 03/19/20 12 8:24AM BY LETTY LUNA ON/ADDEN DUM BLAYNE Hurtado, [facility] 6 09:33:55 Sprain of foot 59037030 Completed 201102/20/2014 RECORDED 03/19/20 12 8:24AM BY LETTY LUNA ON/ADDEN DUM BLAYNE Hurtado, [facility] 6 09:33:55 Body mass index 30+ - obesity 105913421 Active BLAYNE Hurtado, [facility] 6 09:33:55 Low back pain 432989579 Active Hien rico BLAYNE nagel, [facility] 6 09:33:55 Divertic ulitis of colon 501887595 Active Hien rico BLAYNE nagel, [facility] 6 09:33:55 Fatigue 60603613 Active Hienlynette rico BLAYNE nagel, [facility] 6 09:33:55 Hypergly cemia 29285814 Active Hien rico BLAYNE shona, [facility] 6 09:33:55 Sprains and strains of joints and adjacent muscles Completed 201101/27/2014 RECORDED 04/23/20 12 9:33AM BY DIXON [place] MA, ANNOTATI ON/ADDEN DUM Hien rico BLAYNE shona, [facility] 6 09:33:55 Acute prostati tis 85361225 Active 2013 IMPRESSI ON: WE DISCUSSE D [...] HIEN MANNING MA, OFFICE VISIT BLAYNE Hurtado, [facility] 6 09:33:55 Bicipita l nonaosyno vitis 63947134 Completed 201201/27/2014 IMPRESSI ON: AT ATTACHME NT AT ELBOW. CONTINUE ALEVE; RECORDED 10/24/19 13 10:00AM BY HIEN MANNING MA, ANNOTATI ON/ADDEN DUM BLAYNE Hurtado, [facility] 6 09:33:55 Biliuria 48142659 Active 2013 BLAYNE Hurtado, [facility] 6 09:33:55 Carpal tunnel syndrome 75871807 Completed 200801/27/2014 RECORDED 05/20/20 09 8:20AM BY RYAN BUSTOS MD, ANNOTATI ON/ADDEN DUM BLAYNE Hurtado, [facility] 6 09:33:55 Chest pain 33965928 Completed 201101/27/2014 RECORDED 04/23/20 12 9:33AM BY DIXON [place] MA, ANNOTATI ON/ADDEN DUM BLAYNE Hurtado, [facility] 6 09:33:55 Chronic tension- type headache 848179976 Active 2013 BLAYNE Hurtado, [facility] 6 09:33:55 Closed fracture of lower end of radius AND ulna 84771001 Completed 200801/27/2014 RECORDED 05/20/20 09 8:20AM BY RYAN BUSTOS MD, ANNOTATI ON/ADDEN DUM BLAYNE Hurtado, [facility] 6 09:33:55 Depressi ve disorder 59145869 Active 2013 BLAYNE Hurtado, [facility] 6 09:33:55 Disorder of kidney and/or ureter 823753853 Completed 200801/27/2014 IMPRESSI ON: CREATINI NE 1.4 (11/2006) ; RECORDED 05/20/20 09 8:20AM BY RYAN BUSTOS MD, ANNOTATI ON/ADDEN DUM BLAYNE Hurtado, [facility] 6 09:33:55 Edema 305984866 Completed 200801/27/2014 RECORDED 05/20/20 09 7:44AM BY HIEN MANNING MA, LETTY ON/ADDEN DUM BLAYNE Hurtado, [facility] 6 09:33:55 Gastroes ophageal reflux disease 574275760 Active 2013 BLAYNE Hurtado, [facility] 6 09:33:55 Malaise and fatigue 799319424 Active 2013 BLAYNE Hurtado, [facility] 6 09:33:55 Influenz a vaccine needed 87217286983 06 Completed 201101/27/2014 RECORDED 03/19/20 12 8:37AM BY NADYA CAMILO, OFFICE VISIT BLAYNE Hurtado, [facility] 6 09:33:55 Follow-u p encounte r Completed 201101/27/2014 RECORDED 03/19/20 12 8:24AM BY LETTY LUNA ON/ADDEN DUM [facility] 6 09:33:55 Adult health examinat ion Completed 201101/27/2014 RECORDED 04/23/20 12 9:33AM BY DIXON [place] MA, ANNOTATI ON/ADDEN DUM BLAYNE Hurtado, [facility] 6 09:33:55 General examinat ion of patient Completed 200701/27/2014 RECORDED 07/14/20 08 7:03AM BY LETTY FU ON/ADDEN DUM BLAYNE Hurtado, [facility] 6 09:33:55 Hypercho lesterol emia 34610268 Completed 201201/27/2014 RECORDED 11/26/19 13 1:46PM BY DIXON [place] MA, ANNOTATI ON/ADDEN DUM BLAYNE Hurtado, [facility] 6 09:33:54 Hyperlip idemia 15960266 Active 2013 BLAYNE Hurtado, [facility] 6 09:33:54 Hypersom donis 17716413 Completed 201101/27/2014 RECORDED 06/18/20 12 7:23AM BY LETTY BERNAL ON/ADDEN DUM BLAYNE Hurtado, [facility] 6 09:33:55 Essentia l hyperten duglas 93924494 Active 2013 BLAYNE Hurtado, [facility] 6 09:33:55 Epidermo id cyst of skin 178323796 Completed 201101/27/2014 RECORDED 03/19/20 12 8:24AM BY LETTY LUNA ON/ADDEN DUM BLAYNE Hurtado, [facility] 6 09:33:55 Insomnia 381853884 Active 2013 BLAYNE Hurtado, [facility] 6 09:33:55 Renewal of prescrip tion Completed 201201/27/2014 RECORDED 11/26/19 13 1:46PM BY DIXON HOLLAND MA, LETTY ON/ADDEN DUM BLAYNE Hurtado, [facility] 6 09:33:55 Fibromyo sitis 89402217 Active 2013 BLAYNE Hurtado, [facility] 6 09:33:55 Administ ration of bacteria l and viral vaccine Completed 200701/27/2014 RECORDED 03/31/20 08 7:18AM BY HIEN MANNING MA, OFFICE VISIT BLAYNE Hurtado, [facility] 6 09:33:55 Hyperhid rosis 991737531 Completed 201101/27/2014 RECORDED 04/23/20 12 9:33AM BY DIXON HOLLAND MA, ANNOTATI ON/ADDEN DUM BLAYNE Hurtado, [facility] 6 09:33:55 Obesity 675462356 Active 2013 STORY: RECENT INCREASE IN HIS WEIGHT.; RECORDED 01/10/20 14 1:21PM BY HIEN MANNING MA, OFFICE VISIT BLAYNE Hurtado, [facility] 6 09:33:55 Tobacco user [id number] Completed 201101/27/2014 RECORDED 03/19/20 12 8:24AM BY LETTY LUNA ON/ADDEN DUM BLAYNE Hurtado, [facility] 6 09:33:55 History of clinical finding in subject 379480249 Active 2011 BLAYNE Hurtado, [facility] 6 09:33:55 Proteinu brandon 44578513 Active 2013 BLAYNE Hurtado, [facility] 6 09:33:55 Psychose xual dysfunct ion associat ed with inhibite d libido 511842117 Active 2013 BLAYNE Hurtado, [facility] 6 09:33:55 Sprain of foot 56944212 Completed 201101/27/2014 RECORDED 03/19/20 12 8:24AM BY LETTY LUNA ON/ADDEN DUM BLAYNE Hurtado, [facility] 6 09:33:55 Tobacco dependen ce syndrome 93152549 Active 2013 Hien rico MA null, [facility] 6 09:33:55 Problem Notes None recorded. Procedures Surgical History Date Name Laterality Status Provider Name and Address Organization Details Recorded Time 6 Colonoscopy completed Analisa Degutis [facility] 12/06/2015 16:58:34 3 Vasectomy completed [facility] [facility] 05/12/2014 08:16:32 5 Circumcision completed [facility] 05/12/2014 08:16:32 Imaging Results Imaging Date Name Status LastModified by Organization Details LastModified Time 10/30/2014 imaging/diagnostic result completed [facility] Information not available 08/25/2015 09:50:37 08/25/[address] [facility] Informa tion not available 08/25/2015 09:41:39 Procedure Notes None recorded. Medical Equipment None Reported. Allergies Allergen ID Allergen Name Allergen Category Reaction Reaction Severity Criticality Documentation Date Start Date Code Code System Note Provider Name and Address Organization Details Recorded Time 1997 aspirin medicatio n nausea Not available Not available 01/27/2014 1191 RxNorm DANIS Bah [address] [address], [place], [address] [place] [address] 5 16:39:27 Medications Name Sig Start Date [...] Updated DateTime 4 97 % 97 % 70538.6 5874 g 98.1 [degF] 64 /min 31.2 kg/m2 171.45 cm 115 mm[Hg] 74 mm[Hg] [place] Rockt [facility] 4 08:21:21 Date Recorded Oxygen saturation Oxygen saturation in Arterial blood by Pulse oximetry Body weight Heart rate Body mass index (BMI) Body height Body temperature Systolic blood pressure Diastolic blood pressure Provider Name and Address Organization Details Last Updated DateTime 5 96 % 96 % 990058. 88492 g 80 /min 36.1 kg/m2 171.45 cm 97.9 [degF] 110 mm[Hg] 70 mm[Hg] Elsa Conrad MA [facility] 5 09:52:32 Date Recorded Body weight Oxygen saturation Oxygen saturation in Arterial blood by Pulse oximetry Body height Body mass index (BMI) Body temperature Heart rate Systolic blood pressure Diastolic blood pressure Provider Name and Address Organization Details Last Updated DateTime 5 481929. 76295 g 96 % 96 % 171.45 cm 36.7 kg/m2 96.3 [degF] 98 /min 117 mm[Hg] 80 mm[Hg] Elsa Conrad MA [facility] 5 16:28:18 Date Recorded Body height Body mass index (BMI) Body weight Oxygen saturation Oxygen saturation in Arterial blood by Pulse oximetry Heart rate Body temperature Systolic blood pressure Diastolic blood pressure Provider Name and Address Organization Details Last Updated DateTime 6 171.45 cm 36.3 kg/m2 393005. 88751 g 97 % 97 % 88 /min 98.1 [degF] 134 mm[Hg] 82 mm[Hg] Hien rico MA [facility] 6 09:20:03 Social History Question Answer Notes LastModified by Organizat ion Details LastModified Time Tobacco Smoking Status Current Every Day Smoker [place] [facility] 05/12/2014 08:16:25 Do You Have An Advance Directive? No Information not available 05/12/2014 Animal Exposure? Yes Informat ion not available 05/12/2014 Is Blood Transfusion Acceptable In An Emergency? Yes Information not available 05/12/2014 What Is Your Level Of Caffeine Consumption? Moderate Information not available 05/12/2014 How Much Tobacco Do You Chew? None Information not available 05/12/2014 What Type Of Diet Are You Following? REGULAR Information not available 05/12/2014 Which Illicit Or Recreational Drugs Have You Used? None Information not available 08/25/2015 Education 2 Year College Information not available 05/12/2014 Have There Been Any Changes To Your [...] Information not available 08/25/2015 Do You Use Sunscreen Routinely? No Information not available 05/12/2014 How Many Years Have You Smoked Tobacco? 34 Information not available 08/25/2015 Do You Have Difficulty Walking Or Climbing Stairs? No Information not available 05/12/2014 Sex: Unknown Functional Status Question Answer Note LastModified by Organizat ion Details LastModified Time Do you use any illicit or recreational drugs? No Information not available 05/12/2014 What is your level of alcohol consumption? Occasional Information not available 05/12/2014 Are you currently employed? Yes Information not available 05/12/2014 Diff[address]y [address] at night? Yes Information no t available 05/12/2014 Are you able to care for yourself? 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 [...] Stones N Hyperthyroidism N Breast Cancer N Lung Disease N Hypothyroidism N Depression N COPD N Defects or [...] Problems N GI Problems N Acne N Skin Problems N Eating Disorder N Anemia N Constipation N Bladder Problems N Mental Illness N Ovarian Cancer N Diabetes N Blood Transfusions N Seizures/Epilepsy N Tuberculosis N AIDS/HIV N Congestive Heart Failure (CHF) N Eczema N Diverticulitis N Abuse/Domestic Violence N Asthma N Allergies N Reflux/GERD N Hepatitis N Pulmonary Embolism N Hypertension Y Osteoporosis N Chicken Pox N Autism Spectrum Disorder (ASD) N Immunizations Vaccine Type Date Status Note Provider Nam e and Address Organization Details Recorded Time Tdap 8 completed Not Available [facility] 01/27/2014 13:31:33 Influenza, split virus, trivalent, preservative 2 completed Not Available [facility] 01/27/2014 13:31:33 Influenza, split virus, trivalent, PF 4 completed Not Available [facility] 08/02/2019 02:21:57 Past Encounters Encounter ID Performer Location Encounter Start Date Encounter Closed Date Diagnosis/Indication Diagnosis SNOMED-CT Code Diagnosis ICD10 Code Diagnosis Note [id number] autoEComm erce [address] [facility] [place] [address] 11/14/2006 00:00:00 [id number] autoEComm erce [address] [facility] [place] [address] 03/31/2008 00:00:[id number] [place] [address] 07/14/2008 00:00:00 [id number] [address] [place] [address] 09/23/2008 00:00:00 [id number] [address] [place] [address] 10/09/2008 00:00:00 [id number] [address]Comm [address] [place] [address] 10/29/2008 00:00:00 [id number] auto[address]Comm er[address] [place] [address] 12/24/2008 00:00:00 [id number] autoEComm erce [address] [facility] [address] [place] [address] 02/01/2009 00:00:00 [id number] autoEComm erce [address] [facility] [address] [place] [address] 05/20/2009 00:00:00 [id number] autoEComm erce [address] [facility] [address] [place] [address] 08/26/2009 00:00:00 [id number] autoEComm erce [address] [facility] [place] [address] 09/30/2009 00:00:00 [id number] [address]Comm er[address] [place] [address] 12/22/2009 00:00:00 [id number] auto[address]Comm erce [address] [place] [address] 01/24/2010 00:00:00 [id number] autoEComm erce [address] [facility] [address] [place] [address] 06/07/2010 00:00:00 [id number] autoEComm erce [address] [place] [address] 08/30/2010 00:00:00 [id number] autoEComm erce [address] [facility] [place] [address] 11/21/2011 00:00:00 [id number] autoEComm erce [address] [facility] [address] [place] [address] 03/19/2012 00:00:00 [id number] autoEComm erce [address] [facility] [address] [place] [address] 04/23/2012 00:00:00 [id number] autoEComm erce [address] [facility] [place] [address] 06/18/2012 00:00:00 [id number] autoEComm erce [address] [facility] [address] [place] [address] 08/19/2012 00:00:00 [id number] autoEComm erce [address] [facility] [place] [address] 11/25/2012 00:00:00 [id number] autoEComm erce [address] [facility] [place] [address] 01/09/2014 00:00:00 [id number] Ryan Bustos MD Main Office [address] [facility] [address] [place] [place], [place] [address] 05/12/2014 08:03:54 05/12/2014 09:32:08 Adult health examination 149425697 Needs infl uenza immunization 773690406 Body mass index 30+ - obesity 720731957 Tobacco de pendence syndrome 88816577 Essential hypertension 09211417 Low back pain 651600870 Hyperlipidemia 74653593 [id number] DANIS Leger Main Office [address] [facility] [address] [place] [place], [place] [address] 11/02/2014 09:42:42 11/02/2014 10:19:22 Diverticulitis of colon 488477006 symptomati c improvemen t on abx, complete course of antibiotic [id number] DANIS Bah Main Office [address] [facility] [address] [place] [address] 05/28/2015 16:19:08 05/28/2015 16:57:55 Diverticulitis of colon 220111312 K57.32 Patient w/ hx diverticul itis via [...] plan. Screening for malignant neoplasm of colon 965829996 Z12.11 [id number] Ryan Bustos MD Main Office [address] [address] 08/25/2015 09:09:08 08/25/2015 10:14:52 Essential hypertension 75094364 I10 Screening for malignant neoplasm of colon 004160041 Z12.11 Hyperglycemia 81627033 R 73.9 Hyperlipidemia 58698885 E78.5 Malaise and fatigue 2717 41108 R53.83 Tobacco de pendence syndrome 24082899 F17.290 Gastroesop hageal reflux disease 136778856 K21.9 Body mass index 30+ - obesity 016218499 Z68.36 Health Concerns Section Related Observation LastModified by Organization Detai ls LastModified Time None Recorded Concern Status LastModified by Organization Details LastModified Time None Recorded Advance Directives Directive N: Payers Encounter Date Sequence Insurance Name Policy Number Policy Salazar Covered Member ID Salazar Member ID Guarantor Name 05/12/2014 1 [facility] (PPO) [id number] Ross Mosley oks [id number] Ross Desai ks 11/02/2014 1 [facility] (PP[facility]) [id number] Ross Mosley oks [id number] Ross Desai ks 05/28/2015 1 [facility] (PPO) [id number] Ross Mosley oks [id number] Ross Desai ks 08/25/2015 1 [facility] (O) [id number] Ross Mosley [facility] [id number] Ross Desai sc Notes Date Note Type Note Provider Name and Address Organization Details Recorded Time 11/02/2014 text/html H/o LLQ abdomina l pain started 3 days ago while visiting family in [place], progressively worsened within 2 hours. He went [...] tolerating PO fluids. Ryan Bustos MD [address], [address], [facility] 11/02/2014 12:34:39 08/25/2015 text/html Notes symptoms [...] of distressing dreams. Ryan Bustos MD [address] [address], [place], [address], [facility] 08/25/2015 22:00:19 08/25/2015 text/html HeadacheReported bypatient.Notes:Notes [...] concerns about weight gain. Ryan Bustos MD [address] [address], [place], [address], [facility] 08/25/2015 22:00:19
--- OUTSIDE RECORDS SUMMARY | 2024-11-26 06:45 | XMS_ITS | Encounter Summary ---
Author Organization [facility] Address [address] [place] [address] Care Team Providers Care Pit Supervisor Name Role Phone Orlin Chambers MD Primary Care Provider Encounter Details Date Type Department Care Team (Late st Contact Info) Description 10/06/2022 Scanned Document [facility] [address] [place] [address] [facility] [address] [address] Social History Tobacco Use Types Packs/Day Years [...] on filedocumented in this encounter Care Teams Pit Supervisor Relationship Specialty Start Date End Date Orlin Chambers MD [address] [address] PCP - General Family Medicine 01/29/19 08/16/23 Juma Harrington [facility] Pulmonary Medicine 11/23/21 documented as of this encounter
--- OUTSIDE RECORDS SUMMARY | 2024-11-26 06:45 | XMS_ITS | Encounter Summary ---
Author Organization [facility] Address [address] [place] [address] Care Team Providers Care Maintenance Mechanic Engine Name Role Phone Orlin Chambers MD Primary Care Provider Reason for Visit * Reason Comments Medication Refill Encounter Details Date Type Department Care Team (Late st Contact Info) Description 08/04/2019 Refill [facility] [address] [address] Orlin Chambers MD 100 [facility] [address] [place], [place] [phone] Insomnia, unspecified type Social History Tobacco Use [...] type documented in this encounter Care Teams Maintenance Mechanic Engine Relationship Specialty Start Date End Date Orlin Chambers MD 100 [place] [address] PCP - General Family Medicine 01/29/19 08/16/23 Juma Harrington [facility] Pulmonary Medicine 11/23/21 documented as of this encounter
--- OUTSIDE RECORDS SUMMARY | 2024-11-26 06:45 | XMS_ITS | Encounter Summary ---
Author Organization [facility] Address [address] [place] [address] Care Team Providers Care Textile Designs Sales Representative Name Role Phone Orlin Chambers MD Primary Care Provider [phone] Reason for Visit * Reason Comments Medication Refill Encounter Details Date Type Department Care Team (Late st Contact Info) Description 10/09/2022 Refill [facility] 10 100 [facility] [address] [place] [address] Anayeli Del Rosario APRN 100 [facility] [address] [place], [place] [phone] Anxiety Social History Tobacco Use Types Packs/Day [...] unspecified documented in this encounter Care Teams Textile Designs Sales Representative Relationship Specialty Start Date End Date Orlin Chambers MD 100 [place] [address] PCP - General Family Medicine 01/29/19 08/16/23 Juma Harrington [facility] Pulmonary Medicine 11/23/21 documented as of this encounter
--- OUTSIDE RECORDS SUMMARY | 2024-11-26 06:45 | XMS_ITS | Encounter Summary ---
Author Organization [facility] Address [address] [place] [address] Care Team Providers Care Valve Liner Rubber Name Role Phone Unavailable Primary Care Provider Unavailabl e Encounter Details Date Type Department Care Team ([facility] st Contact Info) Description 11/05/2023 Scanned Document [facility] CARDIOLOGY SCAN Cardiology, Scan Social History [...] on filedocumented in this encounter Care Teams Valve Liner Rubber Relationship Specialty Start Date End Date Juma Harrington [facility] Pulmonary Medicine 11/23/21 documented as of this encounter
--- OUTSIDE RECORDS SUMMARY | 2024-11-26 06:45 | XMS_ITS | Encounter Summary ---
Author Organization [facility] Address [address] [place] [address] Care Team Providers Care Veterinary Attendant Name Role Phone Orlin Chambers MD Primary Care Provider [phone] Encounter Details Date Type Department Care Team (Late st Contact Info) Description 10/06/2022 Scanned Document [facility] ORTHO SURGERY SCAN [place], [facility] 31 [place] [address] Social History Tobacco Use Types Packs/Day Years [...] on filedocumented in this encounter Care Teams Veterinary Attendant Relationship Specialty Start Date End Date Orlin Chambers MD [address] [place] [address] PCP - General Family Medicine 01/29/19 08/16/23 Juma Harrington [facility] Pulmonary Medicine 11/23/21 documented as of this encounter
--- OUTSIDE RECORDS SUMMARY | 2024-11-26 06:45 | XMS_ITS | Encounter Summary ---
Author Organization [facility] Address [address] [place] [address] Care Team Providers Care Certified Pedorthotist Name Role Phone Orlin Chambers MD Primary Care Provider [phone] Encounter Details Date Type Department Care Team (Late st Contact Info) Description 05/25/2019 Scanned Document [facility] Pulmonary and Critical Care- [address] [address] Kelly Bustillo MD [address] [place] [address] Social History Tobacco Use Types Packs/Day Years [...] on filedocumented in this encounter Care Teams Certified Pedorthotist Relationship Specialty Start Date End Date Orlin Chambers MD [address] [place] [address] PCP - General Family Medicine 01/29/19 08/16/23 Juma Harrington [facility] Pulmonary Medicine 11/23/21 documented as of this encounter
--- OUTSIDE RECORDS SUMMARY | 2024-11-26 06:45 | XMS_ITS | Encounter Summary ---
Author Organization [facility] Address [address] [place] [address] Care Team Providers Care Boots And Shoes Supervisor Name Role Phone Orlin Chambers MD Primary Care Provider [phone] Encounter Details Date Type Department Care Team (Late st Contact Info) Description 08/29/2022 Scanned Document [facility] ORTHO SURGERY SCAN [place], [facility] 31 [place] [address] Social History Tobacco Use Types Packs/Day Years [...] on filedocumented in this encounter Care Teams Boots And Shoes Supervisor Relationship Specialty Start Date End Date Orlin Chambers MD [address] [place] [address] PCP - General Family Medicine 01/29/19 08/16/23 Juma Harrington [facility] Pulmonary Medicine 11/23/21 documented as of this encounter
--- OUTSIDE RECORDS SUMMARY | 2024-11-26 06:45 | XMS_ITS | Encounter Summary ---
Author Organization [facility] Address [address] [place] [address] Care Team Providers Care Police Magistrate Name Role Phone Orlin Chambers MD Primary Care Provider [phone] Reason for Visit * Reason Comments Medication Refill Encounter Details Date Type Department Care Team (Late st Contact Info) Description 08/04/2019 Refill [facility] 10 100 [facility] [address] [place] [address] Anayeli Del Rosario, TIRE BALANCER 100 [facility] [address] [place], [place] [phone] Hyperlipidemia, unspecified hyperlipidemia type Social History Tobacco [...] type documented in this encounter Care Teams Police Magistrate Relationship Specialty Start Date End Date Orlin Chambers MD 100 [place] [address] PCP - General Family Medicine 01/29/19 08/16/23 Juma Harrington [facility] Pulmonary Medicine 11/23/21 documented as of this encounter
--- OUTSIDE RECORDS SUMMARY | 2024-11-26 06:45 | XMS_ITS | Clinical Summary ---
Author Organization [facility] Address [address] [place] [address] Care Team Providers Care Online Editor Name Role Phone Orlin Chambers Primary Care Provider [phone] Allergies No known active allergies Medications Medication [...] age to complete this topic Care Teams Online Editor Relationship Specialty Start Date End Date Orlin Chambers DO PCP - General Family Medicine 06/17/18
--- OUTSIDE RECORDS SUMMARY | 2024-11-26 06:45 | XMS_ITS | Encounter Summary ---
Author Organization [facility] Address [address] [place] [address] Care Team Providers Care Filenet Developer Name Role Phone Orlin Chambers MD Primary Care Provider [phone] Reason for Visit * Reason Comments Medication Refill Encounter Details Date Type Department Care Team (Late st Contact Info) Description 11/04/2019 Refill [facility] 10 100 [facility] [address] [place] [address] Anayeli Del Rosario, HEAVY MACHINERY OPERATOR 100 [facility] [address] [place], [place] [phone] Anxiety Social History Tobacco Use Types Packs/Day [...] unspecified documented in this encounter Care Teams Filenet Developer Relationship Specialty Start Date End Date Orlin Chambers MD [address] [address] PCP - General Family Medicine 01/29/19 08/16/23 Juma Harrington [facility] Pulmonary Medicine 11/23/21 documented as of this encounter
--- OUTSIDE RECORDS SUMMARY | 2024-11-26 06:45 | XMS_ITS | Encounter Summary ---
Author Organization [facility] Address [address] [place] [address] Care Team Providers Care Plant Supervisor Name Role Phone Orlin Chambers MD Primary Care Provider Encounter Details Date Type Department Care Team (Late st Contact Info) Description 01/29/2019 Scanned Document [facility] 10 100 [facility] [address] [place] [address] Provider, Hortencia, [address] [place] [address] Social History Tobacco Use Types Packs/Day Years [...] on filedocumented in this encounter Care Teams Plant Supervisor Relationship Specialty Start Date End Date Orlin Chambers MD 100 [facility] [address] [place], [place] [phone] PCP - General Family Medicine 01/29/19 08/16/23 Juma Harrington [facility] Pulmonary Medicine 11/23/21 documented as of this encounter
--- OUTSIDE RECORDS SUMMARY | 2024-11-26 06:45 | XMS_ITS | Encounter Summary ---
Author Organization [facility] Address [address] [place] [address] Care Team Providers Care Hospice Executive Director Name Role Phone Orlin Chambers MD Primary Care Provider Encounter Details Date Type Department Care Team (Late st Contact Info) Description 09/05/2022 Scanned Document [facility] 10 100 [facility] 203 [place] [address] Orlin Chambers MD 100 [facility] [address] [place] [address] Social History Tobacco Use Types Packs/Day Years [...] on filedocumented in this encounter Care Teams Hospice Executive Director Relationship Specialty Start Date End Date Orlin Chambers MD [address] [address] PCP - General Family Medicine 01/29/19 08/16/23 Juma Harrington [facility] Pulmonary Medicine 11/23/21 documented as of this encounter
--- OUTSIDE RECORDS SUMMARY | 2024-11-26 06:45 | XMS_ITS | Clinical Summary ---
Author Organization [facility] Address [address] [place] [address] Care Team Providers Care Pbx Supervisor Name Role Phone Unavailable Primary Care Provider [...] Urine, Random 242 20 - 320 mg/dL [employer] Microalbumin, Urine, Random 12.1 See Note: mg/dL [employer] Comment: Reference Range: Reference Range Not established Microalbumin/Creat inine Ratio 50(H) <30 mcg/mg creat [employer] Comment: The ADA defines abnormalities in albumin [...] Orlin Chambers MD URINE ORDERABLES Final Result [facility] [address] [place] [address], [place] [address] * (ABNORMAL) Hemoglobin A1c (06/06/2022 8:55 AM EST) Hemoglobin A1C 6.5(H) <5.7 % of total Hgb [employer] Comment: For someone without known diabetes, a [...] ORDERABLES Final Re sult Performing Organization Address [facility]/ZIP Co de Phone Number [facility] [address], [place] [address] * (ABNORMAL) Basic Metabolic Panel (06/06/2022 8:55 AM EST) Glucose 129(H) 65 - 99 mg/dL [employer] Comment: ? Fasting reference interval For someone without known diabetes, a glucose value >125 mg/dL indicates that they may have diabetes and this should be confirmed with a follow-up test. Blood Urea Nitrogen (BUN) 33(H) 7 - 25 mg/dL [employer] Creatinine 1.49(H) 0.70 - 1.30 mg/dL [employer] Creatinine w/ eGFR 54(L) > OR = 60 mL/min/1.7 3m2 [employer] Comment: The eGFR is based on the CKD-EPI 2020 equation. To calculate the new eGFR from a previous Creatinine or Cystatin C result, go to https://www.kidney.org/professionals/ kdoqi/gfr%5Fcalculator BUN/Creatinine Ratio 22 6 - 22 (calc) [employer] Sodium 139 135 - 146 mmol/L [employer] Potassium 4.1 3.5 - 5.3 mmol/L [employer] Chloride 102 98 - 110 mmol/L [employer] CO2 27 20 - 32 mmol/L [employer] Calcium 9.5 8.6 - 10.3 mg/dL [employer] Blood specimen (specimen) 06/06/2022 8:55 AM EST 06/06/2022 8:55 AM EST Narrative [facility] - 06/07/2022 4:59 PM EST FASTING:YES FASTING: YES Orlin Chambers MD LAB BLOOD ORDERABLES Final Re sult Performing Organization Address [facility]/ZIP Co de Phone Number [facility] [address], [place] [address] * (ABNORMAL) Lipid Panel Reflex Direct LDL (12/07/2021 8:13 AM EDT) Cholesterol, Total 191 <200 mg/dL [employer] Cholesterol, HDL 48 > OR = 40 mg/dL [employer] Triglycerides 237(H) <150 mg/dL [employer] Comment: If a non-fasting specimen was collected, consider repeat triglyceride testing on a fasting specimen if clinically indicated. Chris et al. J. of Clin. Lipidol. 2015;9:129-169. LDL Cholesterol 107(H) mg/dL (calc) [employer] Comment: Reference range: <100 Desirable range <100 mg/dL for primary prevention; ?? <70 mg/dL for patients with CHD or diabetic patients with > or = 2 CHD risk factors. LDL-C is now calculated using the Michael-Rosario calculation, which is a validated novel method providing better accuracy than the Friedewald equation in the estimation of LDL-C. Michael SS et al. ELSY. 2013;310(19): 7075-0698 (http://education.[employer]/faq/APR490) Cholesterol/HDL Ratio 4.0 <5.0 (calc) [employer] Non HDL Chol. (LDL+VLDL) 143(H) <130 mg/dL (calc) [employer]. Comment: For patients with diabetes plus 1 major ASCVD risk factor, treating to a non-HDL-C goal of <100 mg/dL (LDL-C of <70 mg/dL) is considered a therapeutic option. Blood specimen (specimen) 12/07/2021 8:13 AM EDT 12/07/2021 8:13 AM EDT Narrative [facility] - 12/08/2021 12:09 AM EDT FASTING:YES FASTING: YES us Orlin Chambers MD LAB BLOOD ORDERABLES Final Re sult [facility] [address], [place] [address] * CT Thorax w/o contrast (05/29/2019 9:23 [...] your patient to us, Travis Villarreal MD [id number] (Electronically Signed - 05/29/2019 09:23) Copy: ORLIN CHAMBERS DO [facility] 10 100 [place] [address] PATIENT , ?? Narrative 05/29/2019 9:23 AM EST EXAMINATION: CT CHEST WITHOUT CONTRAST CLINICAL INFORMATION: Left lower lobe pulmonary nodule. COMPARISON: No relevant prior studies are available for comparison. TECHNIQUE: Multidetector volumetric CT imaging of the chest was done. Axial MIP volume rendering provided. Sagittal and coronal reformatted images were obtained. DLP: 523.69 mGy-cm FINDINGS: [employer] HR DEVELOPER: Unremarkable. LUNGS: There is a 3 mm [...] images were obtained. DLP: 523.69 mGy-cm FINDINGS: [employer] HR DEVELOPER: Unremarkable. LUNGS: There is a 3 mm [...] interval change. According to the UPDATED 2017 [facility] recommendations, the advised follow up imaging [...] your patient to us, Travis Villarreal MD [id number] (Electronically Signed - 05/29/2019 09:23) Copy: ORLIN CHAMBERS DO [facility] 10 100 [facility] [place] [address] PATIENT , Kelly Bustillo MD IMG CT ORDERABLES Final Result from Last 3 Months or Most Recently Relevant to Health Maintenance Insurance [employer] MEDICARE Care Teams Pbx Supervisor Relationship Specialty Start Date End Date [facility] 11/23/21
--- OUTSIDE RECORDS SUMMARY | 2024-11-26 06:45 | XMS_ITS | Encounter Summary ---
Author Organization [facility] Address [address] [place] [address] Care Team Providers Care Cryptographic Center Specialist Name Role Phone Orlin Chambers MD Primary Care Provider [phone] Encounter Details Date Type Department Care Team (Late st Contact Info) Description 01/30/2023 Scanned Document [facility] OR[facility] SURGERY SCAN [place] [address] [place] [address] Social History Tobacco Use Types Packs/Day Years [...] on filedocumented in this encounter Care Teams Cryptographic Center Specialist Relationship Specialty Start Date End Date Orlin Chambers MD [address] [place] [address] PCP - General Family Medicine 01/29/19 08/16/23 Juma Harrington [facility] Pulmonary Medicine 11/23/21 documented as of this encounter
--- OUTSIDE RECORDS SUMMARY | 2024-11-26 06:45 | XMS_ITS | Encounter Summary ---
Author Organization [facility] Address [address] [place] [address] Care Team Providers Care Computer Support Technician Name Role Phone Orlin Chambers MD Primary Care Provider [phone] Reason for Visit * Reason Comments Medication Refill Encounter Details Date Type Department Care Team (Late st Contact Info) Description 04/10/2023 Refill [facility] [address] [address] Orlin Chambers MD 100 [facility] Liam 203 [place], [place] [phone] Insomnia, unspecified type Social History Tobacco Use [...] type documented in this encounter Care Teams Computer Support Technician Relationship Specialty Start Date End Date Orlin Chambers MD 100 [place] [address] PCP - General Family Medicine 01/29/19 08/16/23 Juma Harrington [facility] Pulmonary Medicine 11/23/21 documented as of this encounter
--- OUTSIDE RECORDS SUMMARY | 2024-11-26 06:45 | XMS_ITS | Encounter Summary ---
Author Organization [facility] Address [address] [place] [address] Care Team Providers Care Otr Van Cdl Truck Driver Name Role Phone Orlin Chambers MD Primary Care Provider [phone] Encounter Details Date Type Department Care Team (Late st Contact Info) Description 02/27/2023 Scanned Document [facility] EMERGENCY MED SCAN Emergency Medicine, Scan Social [...] on filedocumented in this encounter Care Teams Otr Van Cdl Truck Driver Relationship Specialty Start Date End Date Orlin Chambers MD [address] [place] [address] PCP - General Family Medicine 01/29/19 08/16/23 Juma Harrington [facility] Pulmonary Medicine 11/23/21 documented as of this encounter
--- OUTSIDE RECORDS SUMMARY | 2024-11-26 06:45 | XMS_ITS | Encounter Summary ---
Author Organization [facility] Address [address] [place] [address] Care Team Providers Care Pattern Chain Maker Supervisor Name Role Phone Orlin Chambers MD Primary Care Provider Encounter Details Date Type Department Care Team (Late st Contact Info) Description 06/03/2019 Scanned Document [facility] [address] [address] Provider, Generic Social History Tobacco [...] on filedocumented in this encounter Care Teams Pattern Chain Maker Supervisor Relationship Specialty Start Date End Date Orlin Chambers MD 100 [facility] Liam 203 [place], [place] [phone] PCP - General Family Medicine 01/29/19 08/16/23 Juma Harrington [facility] Pulmonary Medicine 11/23/21 documented as of this encounter
--- OUTSIDE RECORDS SUMMARY | 2024-11-26 06:45 | XMS_ITS | Encounter Summary ---
Author Organization [facility] Address [address] [place] [address] Care Team Providers Care Desulphurizer Operator Name Role Phone Orlin Chambers MD Primary Care Provider [phone] Encounter Details Date Type Department Care Team (Late st Contact Info) Description 02/27/2023 Scanned Document [facility] EMERGENCY MED SCAN Emergency Medicine, Scan [...] on filedocumented in this encounter Care Teams Desulphurizer Operator Relationship Specialty Start Date End Date Orlin Chambers MD [address] [place] [address] PCP - General Family Medicine 01/29/19 08/16/23 Juma Harrington [facility] Pulmonary Medicine 11/23/21 documented as of this encounter
--- OUTSIDE RECORDS SUMMARY | 2024-11-26 06:45 | XMS_ITS | Encounter Summary ---
Author Organization [facility] Address [address] [place] [address] Care Team Providers Care Rubber Covering Machine Operator Name Role Phone Orlin Chambers MD Primary Care Provider Encounter Details Date Type Department Care Team (Late st Contact Info) Description 08/24/2020 Scanned Document [facility] [address] [place] [address] Provider, External, [address] [place] [address] Social History Tobacco Use Types Packs/Day Years [...] on filedocumented in this encounter Care Teams Rubber Covering Machine Operator Relationship Specialty Start Date End Date Orlin Chambers MD 100 [place] [address] PCP - General Family Medicine 01/29/19 08/16/23 Juma Harrington [facility] Pulmonary Medicine 11/23/21 documented as of this encounter
--- OUTSIDE RECORDS SUMMARY | 2024-11-26 06:45 | XMS_ITS | Encounter Summary ---
Author Organization [facility] Address [address] [place] [address] Care Team Providers Care Director Style Name Role Phone Orlin Chambers MD Primary Care Provider Reason for Visit * Reason Comments Medication Refill Encounter Details Date Type Department Care Team (Late st Contact Info) Description 02/01/2020 Refill [facility] 10 100 [facility] [address] [place] [address] Anayeli Del Rosario, PUTTY MIXER AND APPLIER 100 [facility] Liam 203 [place], [place] [phone] Anxiety Social History Tobacco Use Types Packs/Day [...] unspecified documented in this encounter Care Teams Director Style Relationship Specialty Start Date End Date Orlin Chambers MD 100 [place] [address] PCP - General Family Medicine 01/29/19 08/16/23 Juma Harrington [facility] Pulmonary Medicine 11/23/21 documented as of this encounter
--- OUTSIDE RECORDS SUMMARY | 2024-11-26 06:45 | XMS_ITS | Encounter Summary ---
Author Organization [facility] Address [address] [place] [address] Care Team Providers Care Hazardous Waste Technician Name Role Phone Orlin Chambers MD Primary Care Provider [phone] Reason for Visit * Reason Comments Medication Refill Encounter Details Date Type Department Care Team (Late st Contact Info) Description 04/12/2023 Refill [facility] [address] [address] Orlin Chambers MD 100 [facility] Liam 203 [place], [place] [phone] Insomnia, unspecified type Social History Tobacco Use [...] type documented in this encounter Care Teams Hazardous Waste Technician Relationship Specialty Start Date End Date Orlin Chambers MD 100 [place] [address] PCP - General Family Medicine 01/29/19 08/16/23 Juma Harrington [facility] Pulmonary Medicine 11/23/21 documented as of this encounter
--- OUTSIDE RECORDS SUMMARY | 2024-11-26 06:45 | XMS_ITS | Encounter Summary ---
Author Organization [facility] Address [address] [place] [address] Care Team Providers Care Corporate Banking Officer Name Role Phone Orlin Chambers MD Primary Care Provider [phone] Reason for Visit * Reason Onset Date Comments Medication Refill 11/10/2022 Encounter Details Date Type Department Care Team (Late st Contact Info) Description 11/10/2022 Refill [facility] [address] [place] [address] 203 [place] [address] Orlin Chambers MD 100 [facility] Liam 203 [place], [place] [phone] Insomnia, unspecified type Social History Tobacco Use [...] type documented in this encounter Care Teams Corporate Banking Officer Relationship Specialty Start Date End Date Orlin Chambers MD 100 [place] [address] PCP - General Family Medicine 01/29/19 08/16/23 Juma Harrington [facility] Pulmonary Medicine 11/23/21 documented as of this encounter
--- OUTSIDE RECORDS SUMMARY | 2024-11-26 06:45 | XMS_ITS | Encounter Summary ---
Author Organization [facility] Address [address] [place] [address] Care Team Providers Care Lab Clerk Name Role Phone Orlin Chambers MD Primary Care Provider Encounter Details Date Type Department Care Team (Late st Contact Info) Description 01/25/2023 Scanned Document [facility] ORTHO SURGERY SCAN [place] [address] [place] [address] Social History Tobacco Use Types Packs/Day Years [...] on filedocumented in this encounter Care Teams Lab Clerk Relationship Specialty Start Date End Date Orlin Chambers MD [address] [place] [address] PCP - General Family Medicine 01/29/19 08/16/23 Juma Harrington [facility] Pulmonary Medicine 11/23/21 documented as of this encounter
--- OUTSIDE RECORDS SUMMARY | 2024-11-26 06:45 | XMS_ITS | Encounter Summary ---
Author Organization [facility] Address [address] [place] [address] Care Team Providers Care Office Cleaner Name Role Phone Orlin Chambers MD Primary Care Provider [phone] Reason for Visit * Reason Onset Date Comments Medication Refill 04/10/2023 Encounter Details Date Type Department Care Team (Late st Contact Info) Description 04/10/2023 Refill [facility] [address] [place] [address] 203 [place] [address] Orlin Chambers MD 100 [facility] Liam [address] [place], [place] [phone] Insomnia, unspecified type Social History Tobacco Use [...] type documented in this encounter Care Teams Office Cleaner Relationship Specialty Start Date End Date Orlin Chambers MD 100 [place] [address] PCP - General Family Medicine 01/29/19 08/16/23 Juma Harrington [facility] Pulmonary Medicine 11/23/21 documented as of this encounter
--- OUTSIDE RECORDS SUMMARY | 2024-11-26 06:45 | XMS_ITS | Clinical Summary ---
Author Organization [facility] Address [address] [place] [address] Care Team Providers Care Installment Agent Name Role Phone Pcp, No MD Primary [...] age to complete this topic Care Teams Installment Agent Relationship Specialty Start Date End Date PcpVonda MD [address] [place], [place] [id number] PCP - General Internal Medicine 02/21/21
--- OUTSIDE RECORDS SUMMARY | 2024-11-26 06:45 | XMS_ITS | Encounter Summary ---
Author Organization [facility] Address [address] [place] [address] Care Team Providers Care Blog Writer Name Role Phone Orlin Chambers MD Primary Care Provider [phone] Reason for Visit * Reason Onset Date Comments Medication Refill 04/12/2023 Encounter Details Date Type Department Care Team (Late st Contact Info) Description 04/12/2023 Refill [facility] [address] [place] [address] 203 [place] [address] Orlin Chambers MD 100 [facility] Liam [address] [place], [place] [phone] Insomnia, unspecified type Social History Tobacco Use [...] type documented in this encounter Care Teams Blog Writer Relationship Specialty Start Date End Date Orlin Chambers MD 100 [place] [address] PCP - General Family Medicine 01/29/19 08/16/23 Juma Harrington [facility] Pulmonary Medicine 11/23/21 documented as of this encounter
--- OUTSIDE RECORDS SUMMARY | 2024-11-26 06:45 | XMS_ITS | Encounter Summary ---
Author Organization [facility] Address [address] [place] [address] Care Team Providers Care Fuel Oil Truck Driver Name Role Phone Orlin Chambers MD Primary Care Provider Reason for Visit * Reason Onset Date Comments Medication Refill 11/13/2022 Encounter Details Date Type Department Care Team (Late st Contact Info) Description 11/13/2022 Refill [facility] [address] [place] [address] 203 [place] [address] Orlin Chambers MD 100 [facility] Liam [address] [place], [place] [phone] Insomnia, unspecified type Social History Tobacco Use [...] type documented in this encounter Care Teams Fuel Oil Truck Driver Relationship Specialty Start Date End Date Orlin Chambers MD 100 [place] [address] PCP - General Family Medicine 01/29/19 08/16/23 Juma Harrington [facility] Pulmonary Medicine 11/23/21 documented as of this encounter
--- OUTSIDE RECORDS SUMMARY | 2024-11-26 06:45 | XMS_ITS | Encounter Summary ---
Author Organization [facility] Address [address] [place] [address] Care Team Providers Care Principal Trainer Name Role Phone Orlin Chambers MD Primary Care Provider [phone] Reason for Visit * Reason Comments Medication Refill Encounter Details Date Type Department Care Team (Late st Contact Info) Description 09/12/2019 Refill [facility] 10 100 [facility] [address] [place] [address] Anayeli Del Rosario, STEAM PLANT OPERATOR 100 [facility] Liam 203 [place], [place] [phone] Anxiety Social History Tobacco Use Types Packs/Day [...] unspecified documented in this encounter Care Teams Principal Trainer Relationship Specialty Start Date End Date Orlin Chambers MD 100 [place] [address] PCP - General Family Medicine 01/29/19 08/16/23 Juma Harrington [facility] Pulmonary Medicine 11/23/21 documented as of this encounter
--- OUTSIDE RECORDS SUMMARY | 2024-11-26 06:46 | XMS_ITS | Encounter Summary ---
Author Organization [facility] Address [address] [place] [address] Care Team Providers Care Health Information Director Name Role Phone Orlin Chambers MD Primary Care Provider [phone] Encounter Details Date Type Department Care Team (Late st Contact Info) Description 11/01/2020 Scanned Document [facility] ORTHO SURGERY SCAN Orthopedic Surgery, Scan [...] filedocumented in this encounter Care Teams Health Information Director Relationship Specialty Start Date End Date Orlin Chambers MD [address] [place] [address] PCP - General Family Medicine 01/29/19 08/16/23 Juma Harrington [facility] Pulmonary Medicine 11/23/21 documented as of this encounter
--- OUTSIDE RECORDS SUMMARY | 2024-11-26 06:46 | XMS_ITS | Clinical Summary ---
Author Organization [facility] Address [address] [place] [address] Care Team Providers Care Marble Worker Name Role Phone Orlin Chambers DO Primary Care Provider [phone] Surgical History Surgery Date Site/Laterality Comments WISDOM TOOTH EXTRACTION PROCEDURE:WISDOM TOOTH EXTRACTION KNEE ARTHROSCOPY 06/03/2019 Left PROCEDURE:KNEE ARTHROSCOPY;COMMENT:Procedure: LEFT KNEE ARTHROSCOPY, PARTIAL MEDIAL MENISCECTOMY; Surgeon: David Pack MD; Location: [facility] AMBUL[facility]ORY SURGERY; Service: [facility]; Laterality: [...] age to complete this topic Care Teams Marble Worker Relationship Specialty Start Date End Date Orlin Chambers DO [address] [place] [address] PCP - General Family Medicine 06/17/18
--- OUTSIDE RECORDS SUMMARY | 2024-11-26 06:46 | XMS_ITS | Encounter Summary ---
Author Organization [facility] Address [address] [place] [address] Care Team Providers Care Therapy Administrative Assistant Name Role Phone Orlin Chambers MD Primary Care Provider [phone] Encounter Details Date Type Department Care Team (Late st Contact Info) Description 10/18/2020 Scanned Document [facility] [place] 10 100 [facility] 203 [place] [address] Michael Sweeney MD [address] [place] [address] Social History Tobacco Use Types Packs/Day Years [...] on filedocumented in this encounter Care Teams Therapy Administrative Assistant Relationship Specialty Start Date End Date Orlin Chambers MD [address] [address] PCP - General Family Medicine 01/29/19 08/16/23 Juma Harrington [facility] Pulmonary Medicine 11/23/21 documented as of this encounter
== END 2024-11-26 06:43 | disposition home or self-care (01) ==
LOC: HO.XRAY 06:42
PROVIDERS: PCP Physician Assistant; Visit Provider Physician Assistant
DX: M54.16 Radiculopathy, lumbar region (principal)
CPT/HCPCS: 72110

== ENCOUNTER → 2024-11-26 06:46 | Outpatient (BNV) | payer OTHER, SELFPAY | PROVIDERS: PCP Physician Assistant; Visit Provider Radiology Diagnostic Radiology | DX: M54.50 Low back pain, unspecified (principal) | CPT/HCPCS: 72110 ==

== ENCOUNTER 2024-12-06 19:28 | Outpatient (REF) | payer OTHER, SELFPAY ==
--- NOTE | ~2024-12-06 | MR_ITS ---
CLINICAL HISTORY: M54.16 - Radiculopathy, lumbar region --- Additional Notes or Special Instructions: Patient with three-week history lower lumbar spine pain not resolving with MR lumbar spine without gadolinium Comparison: CR/SR - XR LUMBAR SPINE 4V MIN - 11/26/24 06:49 EDT Findings: No scoliosis or spondylolisthesis. No acute fracture or pathologic bone lesion. There is an hemangioma within the T12 vertebral body. There are degenerative type endplate marrow changes. Cauda equina and conus medullaris within normal limits. T11-T12: 6 mm central and left paracentral disc protrusion with moderate thecal sac effacement. Overall, no significant central canal stenosis. No significant narrowing of neural foramina. T12-L1: Moderate broad-based disc bulge with mild thecal sac effacement. No significant neural foraminal narrowing. L1-L2: Moderate broad-based disc bulge with mild thecal sac effacement. No significant neural foraminal narrowing. L2-L3: Moderate broad-based disc bulge and mild facet osteoarthritis with mild effacement of the anterior and posterolateral margins of the thecal sac. Moderate stenosis of the right neural foramen. No significant narrowing of the left neural foramen. L3-L4: Moderate broad-based disc bulge and mild facet osteoarthritis with mild central canal stenosis. Mild stenosis of bilateral neural foramina. L4-L5: Moderate broad-based disc bulge and mild osteoarthritis of the left facet joint with mild central canal stenosis. Moderate stenosis of the left neural foramen. Mild narrowing of the right neural foramen. L5-S1: Mild broad-based disc bulge with mild thecal sac effacement. Moderate osteoarthritis of the facet joints. Moderate stenosis of the left neural foramen. No significant stenosis of the right neural foramen. Paraspinous musculature intact. IMPRESSION: Multilevel spondylosis and facet osteoarthritis as described. This document has been electronically signed by: Sade Salcido MD on 12/09/2024 14:06:49
== END 2024-12-06 19:29 | disposition home or self-care (01) ==
LOC: HO.MRI 19:28
PROVIDERS: PCP Physician Assistant; Visit Provider Physician Assistant
DX: M54.16 Radiculopathy, lumbar region (principal)
CPT/HCPCS: 72148

== ENCOUNTER → 2024-12-06 19:39 | Outpatient (BNV) | payer OTHER, SELFPAY | PROVIDERS: PCP Physician Assistant; Visit Provider Radiology Diagnostic Radiology | DX: M47.26 Other spondylosis with radiculopathy, lumbar region (principal) | CPT/HCPCS: 72148 ==

== ENCOUNTER 2024-12-30 06:53 | Outpatient (REF) | payer OTHER, SELFPAY ==
--- NOTE | ~2024-12-30 | CT_ITS ---
CLINICAL HISTORY: Z87.891 - Personal history of nicotine dependence --- Additional Notes or Special I nstructions: 6m repeat LDCT - 06 10 LD Lung RADS 3 CT lung cancer screening (LDCT) Comparison: CT/MN/SR - CT LUNG SCREENING - 06/10/24 17:07 EST Technique: Axial CT images of the chest using low-dose technique. Referring provider counseled the patient on shared decision-making for LDCT screening. Additional counseling was provided on smoking cessation. Effective radiation dose total: DLP 58 mGycm, CTDIvol 2 mGy. Findings: Lung: No emphysema. No acute process. No suspicious pleural disease. Right upper lobe stable 4 mm nodule on image 35. Right lower lobe calcified granulomata, for example on image 108, stable 4 mm nodule on image 56. Left upper lobe previously seen 5 mm nodule is not visualized. Left lower lobe stable 6 mm nodule on image 100. Additional several pulmonary micronodules are also stable. No new pulmonary nodule. Coronary artery calcifications: Stable mild Limited upper abdomen: Hepatic steatosis. Other: None Impression: LungRADS 2 - Benign Appearance: Continue annual screening with low dose Chest CT in 12 months. ##L2## Category 1: Normal; continue annual screening Category 2: Benign appearance or behavior, continue annual screening Category 3: Probably benign, [address] recommended Category 4A: Suspicious, [address] recommended; may consider PET/CT Category 4B: Suspicious, Additional diagnostics and/or tissue sampling recommended Category 4X: Suspicious, Additional diagnostics and/or tissue sampling recommended Category 0: Recalls (incomplete screen due to Incomplete coverage, Noise, Respiratory motion, Expiration, Obscured by acute abnormality) This document has been electronically signed by: Alondra Callahan MD on 12/30/2024 14:04:07
[2024-12-30 07:39] LABS: Hematocrit 40.5 % (42.0-52.0); Hemoglobin 13.8 g/dl (14.0-18.0); Mean Corpuscular HGB Conc 34.1 g/dl (31.0-36.0); Mean Corpuscular Hemoglobin 28.6 pg (27.0-33.0); Mean Platelet Volume 10.3 fL (9.4-12.4); Platelet Count 198 X10*3/uL (160-400); Red Blood Count 4.82 X10*6/uL (4.60-5.80); Red Cell Distribution Width 12.8 % (11.0-16.0)
[2024-12-30 07:56] LABS: Alanine Aminotransferase 37 U/L (0-40); Albumin Level 4.7 g/dL (3.5-5.0); Alkaline Phosphatase 71 U/L (39-117); Anion Gap 16 (12-20); Aspartate Amino Transferase 28 U/L (5-37); Blood Urea Nitrogen 32 mg/dL (9-16); Carbon Dioxide 27 mmol/L (22-29); Chloride 101 mmol/L (96-108); Cholesterol 187 mg/dL (<200); Estimated Glomerular Filt Rate 51; Glucose Fasting 129 mg/dL (60-99); Glucose Random 129 mg/dL (60-115); HDL Cholesterol 41 mg/dL (>40); LDL Cholesterol Calculated 96 mg/dL (<100); Potassium 3.9 mmol/L (3.3-5.1); Sodium 140 mmol/L (135-145); Total Protein 7.5 g/dL (6.5-8.0); Triglycerides 253 mg/dL (<150)
== END 2024-12-30 06:54 | disposition home or self-care (01) ==
LOC: HO.CT 06:53
PROVIDERS: Absent Provider Physician Assistant; PCP Physician Assistant; Visit Provider Physician Assistant Medical
DX: R91.8 Other nonspecific abnormal finding of lung field (principal); Z87.891 Personal history of nicotine dependence; I10 Essential (primary) hypertension; R79.89 Other specified abnormal findings of blood chemistry; E78.2 Mixed hyperlipidemia
CPT/HCPCS: 36415; 71250; 80048; 80053; 80061; 85027

== ENCOUNTER → 2024-12-30 07:02 | Outpatient (BNV) | payer OTHER, SELFPAY | PROVIDERS: Absent Provider Physician Assistant; PCP Physician Assistant; Visit Provider Radiology Diagnostic Radiology | DX: R91.8 Other nonspecific abnormal finding of lung field (principal) | CPT/HCPCS: 71250 ==

== ENCOUNTER 2024-12-31 07:59 | Outpatient (AMB) | payer OTHER, SELFPAY ==
[2024-12-31 08:05] VITALS: BP 108/72; PULSE 93; RESP 16; TEMP 36.2; O2SAT 96; BMI 36.6
--- NOTE | 2024-12-31 08:05 | MHC.PC.OV ---
Vital Signs 12/31/24 08:05 Height 5 ft 7 in Weight 234 lb BMI 36.6 BP 108/72 Blood Pressure Location Lt brachial Position Sitting Respiration 16 Pulse 93 Pulse Source Pulse Oximeter Temp 97.1 F Temp Source Temporal Artery Scan Pulse Oximetry (%) 96 Oxygen Delivery Method Room Air Intake Visit Reasons: 3mth f/u Fast Food Delivery Driver Required: No Accompanied by: Self / Same As Patient Allergies No Known Allergies (No Known Allergies*) Allergy (Verified 12/31/24 08:19) Medication List - Last Reconciled 12/31/24 by Jas Byrd PA-C chlorthalidone 25 mg PO BEDTIME 90 days Held on 04/10/24. Instructions: Doctor's Order clonazepam 0.5 mg PO DAILY 14 days CPAP (CPAP Machine/Device) As directed hydrochlorothiazide 12.5 mg PO DAILY hydroxyzine HCl 25 mg PO BEDTIME 30 days lorazepam 0.5 mg PO BID 30 days Held on 10/16/24. Instructions: Doctor's Order losartan 50 mg PO BEDTIME metformin 500 mg PO DAILY omeprazole 20 mg PO DAILY 90 days semaglutide (Ozempic) 1 mg (0.75 mL) subcut QWEEK 4 weeks sildenafil 50 mg PO DAILY PRN simvastatin 80 mg PO BEDTIME trazodone 50 mg PO BEDTIME 90 days Tobacco use date assessed: 12/31/24 Dental Screening Dental Screen Date: 12/31/24 Did you have a dental visit in the last 12 months?: No Did you have a dental problem in the last 6 months where you did not have access to dental care?: No Was dental information given to patient?: Patient has dentist HPI 3mth f/u HPI Details Patient is a 59-year-old male here today for a follow-up visit Patient has a past medical history significant for hypertension, obesity, anxiety hyperlipidemia, diverticulosis ТАТЬЯНА type 2 diabetes. Concern--> he does report continuing to have memory disturbance to which we did get an MRI did showing microvascular ischemic basal disease likely related to his diabetes and hypertension. We also discussed that benzodiazepine may be causing a side effect or memory impairment. He also reports having a dull ache over his bilateral lower extremities which may be related to his statin. Will stopped simvastatin 80 mg and start new statin therpy atorvastatin 20 mg .. Anxiety: Has drastically reduce the amount of lorazepam using. Has tried buspirone 5 mg b.i.d. though had side effect of sleeping disturbance. He has transitioned to clonazepam to which he uses and feels his anxiety is much better, still having trouble sleeping which clonazepam does help him sleep. He plans on weaning off of clonazepam as well. .. Type 2 diabetes: Patient continues on metformin 500 b.i.d.. Today's A1c is over 7. We have increased his Ozempic to 1 mg which seems to have offered him better glycemic control. He has been able to lose weight since last office visit. He wonders about changing his GLP 1 to Mounjaro for better glycemic control and weight loss. Noted microalbuminuria- will follow in 6 months. Most recent labs do show a small increase in his creatinine. .. Hypertension: Patient's blood pressure acceptable today in office. Continues on losartan 50 mg daily. He has been making lifestyle modifications has been able to lose weight. He continues with hydrochlorothiazide and losartan 50 mg. Does have slight elevation in his creatinine to which he is followed by Nephrology. He will try to capture better control of his blood sugars .. Class 2 Obesity: Has lost weight since last office visit. He is not on a vegetarian diet anymore. He does understand he needs to work on lifestyle modifications to reduce his weight. PLAN: Will try to transitioned to an alternative GLP 1 to help with weight loss-- > Mounjaro [facility] Medical History Lower extremity edema Dyspnea ТАТЬЯНА (obstructive sleep apnea) Pulmonary nodules Obese Personal history of nicotine dependence Erectile dysfunction HLD (hyperlipidemia) Type 2 diabetes mellitus HTN (hypertension) Surgical History History of repair of right rotator cuff History of left knee surgery History of colonoscopy Family History Mother Lung cancer Father Diabetes Bladder cancer Heart attack Brother Hypertension Diabetes Maternal Grandmother Hypertension Arthritis Maternal Aunt Family history of malignant neoplasm of female breast Social History Household Members: Family Housing: House Do you presently have visiting nurse or other home services: No Alcohol intake: never Patient Tobacco Use Status: Former Tobacco user Years Smoked: (onset 16yo, 1.5ppd x 35yrs, 50pyh, quit 2016) e-Cigarette/Vaping Use: Never Used service: No Current occupational status: employed Cognitive needs: No Hearing needs: No Vision needs: Yes (Reading glasses) Questionnaire PHQ-9 Over the last 2 weeks, how often have you been bothered by any of the following problems? 1. Little interest or pleasure in doing things: not at all 2. Feeling down, depressed, or hopeless: not at all 3. Trouble falling or staying asleep, or sleeping too much: not at all 4. Feeling tired or having little energy: not at all 5. Poor appetite or overeating: not at all 6. Feeling bad about yourself - or that you are a failure or have let yourself or your family down: not at all 7. Trouble concentrating on things, such as reading the newspaper or watching television: not at all 8. Moving or speaking so slowly that other people could have noticed. Or the opposite - being so fidgety or restless that you have been moving around a lot more than usual: not at all 9. Thoughts that you would be better off or of hurting yourself in some way: not at all Total score: 0 Depression Screening Interpretation: Negative Depression Screening Done: Yes 27093 - PHQ-9 Billing: Yes Source: Developed by Drs. Hoang Sheffield, Samantha Barreto, Ben Niño and colleagues, with an educational salomon from [employer]. Thrive Questionnaire Date Thrive assessed: 12/31/24 I am a: Patient What is your living situation today?: I have a steady place to live Within the past 12 months, did the food you bought not last and you didn't have the money to get more?: Never true Within the past 12 months, did you worry whether your food would run out before you got money to buy more?: Never true Do you have trouble paying for medicines?: No Do you have trouble getting transportation to medical appointments?: No Do you have trouble paying your heating and electricity bill?: No Do you have trouble taking care of your child, family member or friend?: No Do you have trouble with day-to-day activities such as bathing, preparing meals, shopping, managing finances, etc.?: No Are you currently unemployed and looking for a job?: No Are you interested in more education?: No Please select the resources that you would like help with: None Currently or been in a relationship where the following occur: I choose not to answer THRIVE Score: 0 AUDIT C Alcohol Use Questionnaire (AUDIT-C) 1. How often do you have a drink containing alcohol?: Never Total Score: 0 Score Reviewed/Action Taken: No ELIJAH-7 AMB Questionnaire ELIJAH-7 Date ELIJAH - 7 assessed: 12/31/24 Feeling nervous, anxious, or on edge: 0 = Not at all Not being able to stop or control worryin = Not at all Worrying too much about different things: 0 = Not at all Trouble relaxin = Not at all Being so restless that it is hard to sit still: 0 = Not at all Becoming easily annoyed or irritable: 0 = Not at all Feeling afraid as if something awful might happen: 0 = Not at all Total ELIJAH-7 score (0-4 normal; 5-9 mild; 10-14 moderate; 15-21 severe): 0 Source: Developed by Drs. Hoang Sheffield, Samantha Barreto, Ben Niño and colleagues, with an educational salomon from [employer]. ELIJAH-7 Assessment Billing ELIJAH-7 Assessment Tool: ELIJAH-7 Assessment 84204 Review of Systems Const Denies headache(s) Eyes Denies loss of vision ENT Denies vertigo, Denies dizziness, Denies headache(s) and Denies sore throat Card Denies chest pain, Denies leg edema and Denies lightheadedness Resp Denies cough, Denies hemoptysis and Denies wheezing GI Denies abdominal pain, Denies melena, Denies constipation, Denies diarrhea and Denies vomiting Denies dysuria, Denies urinary frequency and Denies urinary urgency Musc Denies arthralgias, Denies joint swelling, Denies numbness and Denies tingling Neuro Denies Abnormal speech present, Denies behavioral changes, Denies vertigo, Denies dizziness, Denies headache(s), Denies loss of vision, Denies memory loss, Denies numbness and Denies tingling Psych Denies anxiety, Denies behavioral changes, Denies depression, Denies memory loss and Denies panic attacks Awais/Lymph Denies easy bleeding and Denies easy bruising Aller/Immun Denies wheezing Physical exam (Primary Care) Vital Signs: Last Vital Signs Temp 97.1 F 12/31/24 08:05 Pulse 93 12/31/24 08:05 Resp 16 12/31/24 08:05 BP 108/72 12/31/24 08:05 Pulse Ox 96 12/31/24 08:05 Oxygen Delivery Method Room Air 12/31/24 08:05 BMI result Body Mass Index 36.6 BMI Assessment/Plan discussion: High BMI High, discussed plan: lifestyle, weight reduction, dietary and physical activity Tobacco/Smoking Status: Tobacco use Status Tobacco use date assessed 12/31/24 12/31/24 08:08 Patient Tobacco Use Status Former Tobacco user 12/31/24 08:08 Tobacco use type 05/01/24 10:06 e-Cigarette/Vaping Use Never Used 12/31/24 08:08 PHQ-9: PHQ-9 Score PHQ-9: Total score 0 12/31/24 08:22 Depression Screening Interpretation: Negative Thrive Assessment: Date of Thrive Assessment Date Thrive assessed 12/31/24 12/31/24 08:08 Currently or been in a relationship where the following occur: I choose not to answer Const General: healthy appearing, no acute distress, alert and awake Nutritional Appearance: well nourished Orientation/consciousness: oriented to person, oriented to place and oriented to time HENMT Ears: TM's normal bilaterally General nose exam: Normal nasal mucous membranes and turbinates present Eyes Conjunctivae: conjunctivae normal Sclerae: sclerae normal Pupils: Equal, round and reactive pupils present Neck Neck: Yes no lymphadenopathy and Yes no JVD Thyroid: Thyroid normal Carotids: no bruits Resp Effort & Inspection: normal respiratory effort and not tachypneic Auscultation: no crackles, no rales, no rhonchi and no wheezes Cardio Rate: regular rate Rhythm: regular rhythm Heart sounds: no murmurs and normal S1 and S2 GI Palpation (GI): Soft to palpation, nontender, no hepatomegaly and no splenomegaly Auscultation: normal bowel sounds Skin General skin exam: no rashes or lesions noted and dry skin Neuro General: oriented to person, oriented to place and oriented to time Cranial nerves: Yes Equal, round and reactive pupils present Speech: No Abnormal speech present Gait exam (Neuro): Normal gait present Motor exam (neuro): no tremor noted Extrem Right upper extremity: full ROM Left upper extremity: full ROM Right lower extremity: full ROM; no edema Left lower extremity: full ROM; no edema Psych Mental Status: mental status grossly normal Speech and movement: Normal speech and movement present Affect: normal affect Attitude: cooperative Thought process: Normal thought process present Results AMB Hemoglobin A1c AMB Hemoglobin A1c 7.6 % Last Edit by Jaycee Black CMA on 12/31/24 08:19 Results Reviewed Results Reviewed: Laboratory Last Values Hgb A1c (Clinic) 7.6 % (4.0-6.0) H 12/31/24 08:18 Coding Level of Care Code Est Pt Level 4 (74487) Diagnoses Type 2 diabetes mellitus with hyperglycemia, without long-term current use of insulin E11.65 Diabetes mellitus complication status: with hyperglycemia Diabetes mellitus terminal manager insulin use: without terminal manager use Mixed hyperlipidemia E78.2 Hyperlipidemia type: mixed hyperlipidemia Primary hypertension I10 Hypertension type: primary hypertension Class 2 obesity E66.812 ELIJAH (generalized anxiety disorder) F41.1 Additional Codes ELIJAH-7 Assessment Billing - ELIJAH-7 Assessment Tool: ELIJAH-7 Assessment 81997 ([id number]) PHQ-9 - 43299 - PHQ-9 Billing: Yes ([id number]) Assessment & Plan Assessment & Plan (1) Type 2 diabetes mellitus: Code(s): E11.9 - Type 2 diabetes mellitus without complications Category: Medical Qualifiers: Diabetes mellitus complication status: with hyperglycemia Diabetes mellitus terminal manager insulin use: without terminal manager use Qualified Code(s): E11.65 - Type 2 diabetes mellitus with hyperglycemia Plan: Patient's type 2 diabetes suboptimally controlled with an A1c today is 6.9 from 7.5. Will transitioned to an alternative GLP 1 for better glycemic control and weight loss, will transitioned to Mounjaro and up titrate per response. Goal A1c is to remain below 7.0 (2) HLD (hyperlipidemia): Code(s): E78.5 - Hyperlipidemia, unspecified Category: Medical Qualifiers: Hyperlipidemia type: mixed hyperlipidemia Qualified Code(s): E78.2 - Mixed hyperlipidemia Plan: Most recent lipid panel showing excellent control of her total cholesterol and LDL. He continues on high dose of simvastatin though reports myalgias in his lower extremities. Will transitioned to atorvastatin 20 to see if his myalgias relief.. He will continue working on lifestyle and dietary modifications. Goal LDL to be below 100 (3) HTN (hypertension): Code(s): I10 - Essential (primary) hypertension Category: Medical Qualifiers: Hypertension type: primary hypertension Qualified Code(s): I10 - Essential (primary) hypertension Plan: Patient's blood pressure acceptable today in office will continue on current dose of hydrochlorothiazide and losartan. Due to his chronic elevated BUN will try to set him up with a roller skate assembler for further evaluation of a kidney disease. Goal blood pressures to remain below 140/90 (4) Class 2 obesity: Code(s): E66.812 - Obesity, class 2 Category: Medical Plan: Has gained weight since last office visit Patient does understand his BMI is over 35 and will work on being more physically active and adapting to better eating habits to reduce his weight (5) ELIJAH (generalized anxiety disorder): Code(s): F41.1 - Generalized anxiety disorder Category: Medical Plan: Has changed has been so that has been to a longer-acting form of clonazepam and feels his anxiety has a bit better. Still having sleeping issues in still use clonazepam on nearly a daily basis. We did discuss the habit-forming nature clonazepam/benzodiazepine and does understand. He would like to wean his dose of clonazepam over some time. Orders: Orders AMB Hemoglobin A1c Today E11.65 - Type 2 diabetes mellitus with hyperglycemia Medications: New tirzepatide (Mounjaro) for 4 weeks 2.5 mg (0.5 mL) subcut QWEEK 2 mL 0RF 4 weeks E11.65 - Type 2 diabetes mellitus with hyperglycemia atorvastatin (Lipitor) 20 mg PO DAILY 90 tabs 1RF 90 days E78.2 - Mixed hyperlipidemia Changed From hydrochlorothiazide 12.5 mg PO DAILY 90 tabs 0RF I10 - Essential (primary) hypertension To hydrochlorothiazide 12.5 mg PO DAILY 90 tabs 1RF 90 days I10 - Essential (primary) hypertension Discontinued simvastatin Discontinued Reason: Doctor's Order 80 mg PO BEDTIME 90 tabs 3RF On Hold semaglutide (Ozempic) Hold Comment: Doctor's Order 1 mg (0.75 mL) subcut QWEEK 4 weeks 3 mL 3RF E11.65 - Type 2 diabetes mellitus with hyperglycemia
--- OUTSIDE RECORDS SUMMARY | 2024-12-31 08:09 | XMS_ITS | Encounter Summary ---
Author Organization [facility] Address [address] [place] [id number] Care Team Providers Care Manufacturing Planner Name Role Phone Orlin Chambers MD Primary Care Provider Encounter Details Date Type Department Care Team (Late st Contact Info) Description 02/27/2023 Scanned Document [facility] EMERGENCY MED SCAN Emergency Medicine, Scan [...] filedocumented in this encounter Care Teams Manufacturing Planner Relationship Specialty Start Date End Date Orlin Chambers MD [address] [place] [id number] PCP - General Family Medicine 01/29/19 08/16/23 Juma Harrington [facility] Pulmonary Disease 11/23/21 documented as of this encounter
== END 2024-12-31 08:42 | disposition home or self-care (01) ==
LOC: HO.HMCH 08:00
PROVIDERS: PCP Physician Assistant; Visit Provider Physician Assistant
DX: E11.65 Type 2 diabetes mellitus with hyperglycemia (principal); E78.2 Mixed hyperlipidemia; E66.812 Obesity, class 2; Z68.36 Body mass index [BMI] 36.0-36.9, adult; I10 Essential (primary) hypertension; F41.1 Generalized anxiety disorder

== ENCOUNTER → 2024-12-31 07:59 | Outpatient (BNVA) | payer OTHER, SELFPAY | PROVIDERS: PCP Physician Assistant; Visit Provider Physician Assistant | DX: I10 Essential (primary) hypertension (principal); F41.9 Anxiety disorder, unspecified; K57.90 Diverticulosis of intestine, part unspecified, without perforation or abscess without bleeding; G47.33 Obstructive sleep apnea (adult) (pediatric); E66.812 Obesity, class 2; E78.2 Mixed hyperlipidemia; E11.65 Type 2 diabetes mellitus with hyperglycemia; F41.1 Generalized anxiety disorder; Z68.36 Body mass index [BMI] 36.0-36.9, adult | CPT/HCPCS: 83036; 96127 ==

== ENCOUNTER 2025-01-07 08:03 | Outpatient (REF) | payer OTHER, SELFPAY ==
--- NOTE | ~2025-01-07 | XR_ITS ---
CLINICAL HISTORY: M79.671 - Pain in right foot Right foot three views Comparison: None provided Findings: No acute fracture or dislocation identified. No acute focal bony abnormality. No radiopaque foreign body noted. Impression: No acute bony abnormality This document has been electronically signed by: Aaron Weinberg MD on 01/07/2025 19:49:27
== END 2025-01-07 08:04 | disposition home or self-care (01) ==
LOC: HO.HMGCX 08:03
PROVIDERS: PCP Physician Assistant; Visit Provider Physician Assistant Medical
DX: M79.671 Pain in right foot (principal)
CPT/HCPCS: 73630

== ENCOUNTER 2025-01-07 08:03 | Outpatient (AMB) | payer OTHER, SELFPAY ==
--- OUTSIDE RECORDS SUMMARY | 2025-01-07 08:14 | XMS_ITS | Encounter Summary ---
Author Organization [facility] Address [address] [place] [id number] Care Team Providers Care Interpretative Dancer Name Role Phone Orlin Chambers MD Primary Care Provider [phone] Encounter Details Date Type Department Care Team (Late st Contact Info) Description 02/27/2023 Scanned Document [facility] EMERGENCY MED SCAN Emergency Medicine, Scan [...] on filedocumented in this encounter Care Teams Interpretative Dancer Relationship Specialty Start Date End Date Orlin Chambers MD [address] [place] [id number] PCP - General Family Medicine 01/29/19 08/16/23 Juma Harrington [facility] Pulmonary Disease 11/23/21 documented as of this encounter
[2025-01-07 08:36] VITALS: BP 118/76; PULSE 84; TEMP 36.6; O2SAT 95; BMI 35.9
--- NOTE | 2025-01-07 08:36 | MHC.OFFWIV ---
Intake Vital Signs 01/07/25 08:36 Height 5 ft 7 in Weight 229 lb 8 oz BMI 35.9 BP 118/76 Blood Pressure Location Lt brachial Position Sitting Pulse 84 Pulse Source Pulse Oximeter Temp 97.8 F Temp Source Oral Pulse Oximetry (%) 95 Oxygen Delivery Method Room Air Intake Visit Reasons: EP RT ankle injury Patient Tobacco Use Status: Former Tobacco user Materials Coordinator Required: No Allergies No Known Allergies (No Known Allergies*) Allergy (Verified 01/07/25 08:38) Do you need a note to return to daycare/school/sports/work: No HPI HPI Comments History of Present Illness Details History of Present Illness - The patient is a 59-year-old male presenting with heel pain. - Approximately two weeks ago, the patient experienced trauma to the heel, resulting in ongoing pain and tenderness. - He hit the heel on something and then developed pain. - Pain is aggravated by weight-bearing activities and stair descent, with some relief during rest. 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 - Pain has gotten worse over the past 2 weeks. - He denies numbness, tingling, swelling, bruising, foot pain, calf pain, knee pain, or falls. Physical Exam General: Cooperative, healthy appearing, comfortable, no acute distress and well developed Respiratory: Normal respiratory effort and able to speak in complete sentences. Clear to auscultation bilaterally Cardiovascular: Regular rate and rhythm. Normal S1 and S2 Skin: No rashes or lesions noted. Musculoskeletal: No swelling or deformity noted of the right foot or ankle. FROM of the ankle and digits on the right foot. No TTP of the medial or lateral malleolus. TTP of the calcaneous and Achilles tendon on the right, no plantar fascia tenderness noted. DTR are 1+ on the LE. Ambulates with a steady gait. Strength is 5/5 on the LE bilaterally. Neuro: Sensation is intact on the LE bilaterally. [facility] Medical History Lower extremity edema Dyspnea ТАТЬЯНА (obstructive sleep apnea) Pulmonary nodules Obese Personal history of nicotine dependence Erectile dysfunction HLD (hyperlipidemia) Type 2 diabetes mellitus HTN (hypertension) Surgical History History of repair of right rotator cuff History of left knee surgery History of colonoscopy Family History Mother Lung cancer Father Diabetes Bladder cancer Heart attack Brother Hypertension Diabetes Maternal Grandmother Hypertension Arthritis Maternal Aunt Family history of malignant neoplasm of female breast Social History Household Members: Family Housing: House Do you presently have visiting nurse or other home services: No Alcohol intake: never Patient Tobacco Use Status: Former Tobacco user Years Smoked: (onset 16yo, 1.5ppd x 35yrs, 50pyh, quit 2016) e-Cigarette/Vaping Use: Never Used service: No Current occupational status: employed Cognitive needs: No Hearing needs: No Vision needs: Yes (Reading glasses) Review of Systems Const All systems reviewed & are unremarkable except as noted in HPI and below Physical Exam Vital Signs: Last Vital Signs Temp 97.8 F 01/07/25 08:36 Pulse 84 01/07/25 08:36 BP 118/76 01/07/25 08:36 Pulse Ox 95 01/07/25 08:36 Oxygen Delivery Method Room Air 01/07/25 08:36 BMI result Body Mass Index 35.9 Assessment & Plan Assessment & Plan (1) Right foot pain: Code(s): M79.671 - Pain in right foot Plan: reviewed the foot xray in the office- calcaneal spur noted Plan Most likely strain vs calcaneal spur vs achillis tendonitis vs contusion right foot x-ray in the office today Plan - will order an x-ray - rest, ice, elevation - will refer him to ortho - f/u with his PCP Orders: Orders XR foot RT min 3V Today M79.671 - Pain in right foot Coding Level of Care Code Est Pt Level 4 (10886) Diagnoses Right foot pain M79.671
== END 2025-01-07 13:36 | disposition home or self-care (01) ==
PROVIDERS: PCP Physician Assistant; Visit Provider Physician Assistant Medical
DX: M79.671 Pain in right foot (principal)

== ENCOUNTER → 2025-01-07 09:11 | Outpatient (BNV) | payer OTHER, SELFPAY | PROVIDERS: PCP Physician Assistant; Visit Provider Radiology Diagnostic Radiology | DX: M79.671 Pain in right foot (principal) | CPT/HCPCS: 73630 ==

== ENCOUNTER 2025-02-24 08:20 | Outpatient (AMB) | payer OTHER, SELFPAY ==
--- NOTE | 2025-02-24 08:24 | A.OFFVIS_ITS ---
Vital Signs 02/24/25 08:25 Height 5 ft 7 in Weight 207 lb 3.752 oz BMI 32.5 BP 110/70 Blood Pressure Location Lt brachial Position Sitting Pulse 80 Pulse Source Pulse Oximeter Pulse Oximetry (%) 97 Oxygen Delivery Method Room Air Intake Visit Reasons: Obstructive sleep apnea Crimping Press Operator Required: No Allergies No Known Allergies (No Known Allergies*) Allergy (Verified 02/24/25 08:28) HPI Comments Details: The patient is a 60-year-old gentleman former smoker who presents for evaluation of underlying pulmonary nodules and sleep apnea. Apparently the patient quit smoking many years ago. He has been taking part in the lung cancer screening program. Initially started at [place] and then ultimately moved to [facility]. We did look at his CT scan from 2021 and also from [facility] reason April 2023. He does have multiple pulmonary nodules some that I calcified. The largest nodule measuring 67 mm in size appears to be a granuloma. He also has granulomas in the spleen. He does have a history of living in [place] and therefore is at risk for endemic fungal infections such as histoplasmosis. He also should get tested for tuberculosis. The patient is doing well denies any respiratory complaints. He does not use any inhalers. The patient does have daytime drowsiness. He was diagnosed sleep apnea in the past and had a CPAP machine that he has not difficulty with. Therefore he stopped using it. Subsequently after that he has had some weight loss after lifestyle changes. He is lost about 10 lb. He also underwent shoulder surgery and has been sleeping on his side and avoiding sleeping on his back because of the shoulder discomfort and has also been helping his snoring. Although, he still wakes up tired and he still wakes up snoring and his Pentwater score is elevated 10/24. Therefore, we did talk about different alternative therapy such as mandibular device positiona l therapy but at the end he does need to have a sleep study. We have him get a home sleep study at this time. The patient also undergo blood work to assess for histoplasmosis serology and also T spot. As far as his CT scans he is scheduled to the lung cancer screening program at [facility] would wishes to move it to [place]. Therefore refer him to the lung cancer screening program here at [place] in order for him to get the CT scan next at our facility. 11/15/2023 the patient is here for a pulmonary follow-up visit. He continues to have daytime drowsiness. His Pentwater score still elevated 11/24. The patient did have a sleep study done which we reviewed in the office. His AHI is about 15 he did desaturate down to 77%. In addition to that he had episodes of tachycardia. The patient definitely needs to start CPAP therapy as soon as possible. Will go ahead and arranged with local [employer] company. In the meantime the patient did have his blood work done is T spot was negative and also the histoplasmosis serology was negative for any exposure. Therefore the etiology of the pulmonary nodules at this point is unclear. He will continue participating in the lung cancer screening program. His next CT scans going to be April 2024. the patient does have some mild crackles on examination primarily at the bases. Looking at the imaging studies last CT scan did have some slight atelectasis at the bases likely corresponding to the findings. Will plan to follow-up in 4 months. The patient will start using CPAP if he has any difficulties with the he will call for an earlier assessment. 02/01/2024 the patient is here for a pulmonary follow-up visit. He still struggling with the CPAP some. He does want to use it he does feel better when he uses it. But he struggles with the pressure. He did try different mask currently has an N30 I mask. He feels like it fits better and he can sleep more comfortably with it. Although he has a significant air leakage because of the mouth being open. We did talk about chinstrap. I will order 1 from the [employer]. May also consider buying 1. The patient will start using it regularly. If he can not get used to the chinstrap that he may need to consider other alternatives such as mouth tape or just going back to the fullface mask. He did very well with a fullface mask as far as the pressures he has needed a pressure of 8-9 cm where with the nasal mask he needs a pressure of 12 cm. Likely from opening his mouth. The patient will be switched over to just a CPAP setting of 9 cm to minimize on the pressure and he will try this setting. He will call me a week or 2 to adjust the pressures accordingly. As far as his CT scan he is due for CAT scan soon. He is participating in the lung cancer screening program will arrange that for him. His respiratory exam is better he did have some crackles before but I do not appreciate any at this time. 05/01/2024 the patient is here for a pulmonary follow-up visit. He has been having issues with CPAP. He has been having hard time using specially since she had a sick family member. His dog is been sick with seizures. Been keeping him up at nighttime. Hopefully we can start using the CPAP soon. He has been noticing some increased weight gain to increased daytime drowsiness with an Pentwater elevated Pentwater score of 12/24. In addition to that he has been noticing increasing tachycardia and lower extremity edema. This left lower extremity also has some area of tenderness over the medial lower part of the ankle. He does have some pitting edema. He has not had a cardiac workup in some time. The patient does take cardioprotective medications. I explained to him the importance of using CPAP specially if there is a cardiac issue going on. He is going to start using it. In addition to that he is waiting for the lung cancer screening CT scan. Scheduled for April. He has a 0.5 cm pulmonary nodule that needs follow-up. Will again call his insurance company to make sure his approve in order to order it. Once he gets it done will compare. The patient also has been developing shortness of breath with activity. Moderate severity. Will plan to do pulmonary function studies prior to the next visit. In addition to that the patient is going to work on weight management. And again the cardiac workup would be helpful. 09/02/2024 the patient is here for a pulmonary follow-up visit. Overall he is doing okay. He has not been able to tolerate CPAP and actually returned it. He can not tolerate multiple masks and he just can not get used to it. He is trying positional therapy. We did talk about oral mandibular device. He is going to talk to his dentist. In the meantime we did repeat his sleep study and he did have significant hypoxia. Once he continues to lose weight and considers different alternative therapies for sleep apnea we can consider perform an overnight oximetry to make sure that he is not as hypoxic. Patient already has significant cardiovascular risk factors with diabetes and hypertension. The patient also had a CT scan of the chest to the lung cancer screening program. He had multiple pulmonary nodules. Largest 1 6 mm in size. It was consider rests 3 is going to have a CT scan sometime in September. He is also scheduled for PFTs coming up. The patient quit smoking which is reassuring. He is going to work on lifestyle changes. Will follow-up in 6 months. If any issues arise prior to that he will call for an earlier assessment. 02/24/2025 the patient is here for a pulmonary follow-up visit. Overall he is doing very well. He continues to make lifestyle changes and has had significant weight loss. He has been smoke-free for about 9 years. The patient is still participating in the lung cancer screening program. He had been a rads 3 but recently his December 2024 CT scan was a rads 2. This is reassuring he has pulmonary nodules are stable. I did personally review the CAT scan and I did compare to the 1 from May 2024 demonstrating stability of the nodular densities. The patient will get another CAT scan in a year's time. In regards to the sleep apnea with the weight loss he is doing a lot better. He is not having significant snoring. He is waking up rested with an Pentwater score which is within normal range. He did talk to the dentist about a oral appliance but he is going to think about that especially if his snoring is not any worse. The patient is otherwise doing well he is not using inhalers. He will follow-up in a year's time if he has any issues prior to this he will call for further recommendations. [facility] Medical History Lower extremity edema Dyspnea ТАТЬНЯА (obstructive sleep apnea) Pulmonary nodules Obese Personal history of nicotine dependence Erectile dysfunction HLD (hyperlipidemia) Type 2 diabetes mellitus HTN (hypertension) Surgical History History of repair of right rotator cuff History of left knee surgery History of colonoscopy Family History Mother Lung cancer Father Diabetes Bladder cancer Heart attack Brother Hypertension Diabetes Maternal Grandmother Hypertension Arthritis Maternal Aunt Family history of malignant neoplasm of female breast Social History Household Members: Family Housing: House Do you presently have visiting nurse or other home services: No Alcohol intake: never Patient Tobacco Use Status: Former Tobacco user Years Smoked: (onset 16yo, 1.5ppd x 35yrs, 50pyh, quit 2016) e-Cigarette/Vaping Use: Never Used service: No Current occupational status: employed Cognitive needs: No Hearing needs: No Vision needs: Yes (Reading glasses) Review of Systems Const Denies daytime sleepiness, Denies snoring and Reports weight loss ENT Denies nasal congestion Card Denies chest pain Resp Denies snoring and Denies wheezing GI Reports no additional complaints Musc Reports no additional complaints Skin/Breast Denies rash Neuro Reports no additional complaints Endo Reports no additional complaints Awais/Lymph Denies lymphadenopathy Aller/Immun Denies wheezing Physical Exam Vital Signs: Last Vital Signs Pulse 80 02/24/25 08:25 BP 110/70 02/24/25 08:25 Pulse Ox 97 02/24/25 08:25 Oxygen Delivery Method Room Air 02/24/25 08:25 BMI result Body Mass Index 32.5 Const General: comfortable HEENT Head: Yes normocephalic Neck Neck: Yes supple Chest Chest palpation & inspection: normal inspection of the chest Resp Effort & Inspection: normal respiratory effort Auscultation: clear to auscultation bilaterally and no rales Cardio Heart sounds: S1 normal heart sound present and S2 normal heart sound present GI Palpation (GI): Soft to palpation Skin General skin exam: no rashes or lesions noted Extrem General: Yes no clubbing, cyanosis or edema Assessment & Plan Assessment & Plan (1) Pulmonary nodule: Comment: (calcified and non calcified nodules; former smoker +family hx lung ca mom) Code(s): R91.1 - Solitary pulmonary nodule Category: Medical (2) ТАТЬЯНА (obstructive sleep apnea): Comment: (not tolerating CPAP) Code(s): G47.33 - Obstructive sleep apnea (adult) (pediatric) Category: Medical (3) Screening for lung cancer: Code(s): Z12.2 - Encounter for screening for malignant neoplasm of respiratory organs Category: Medical (4) Dyspnea: Code(s): R06.00 - Dyspnea, unspecified Category: Medical Qualifiers: Dyspnea type: dyspnea on exertion Qualified Code(s): R06.09 - Other forms of dyspnea Plan stopped APAP, [place]itoinal [place] [facility] 3[place]2, CT chest in the Spring 2025 F/U 12 months Coding Level of Care Code Est Pt Level 4 (49208) Diagnoses Pulmonary nodule R91.1 ТАТЬЯНА (obstructive sleep apnea) G47.33 Screening for lung cancer Z12.2 Dyspnea on exertion R06.09 Dyspnea type: dyspnea on exertion Time Spent (min) 16
[2025-02-24 08:25] VITALS: BP 110/70; PULSE 80; O2SAT 97; BMI 32.5
--- OUTSIDE RECORDS SUMMARY | 2025-02-24 08:33 | XMS_ITS | Clinical Summary ---
Author Organization [facility] Address [address] [place] [address] Phone Care Team Providers Care Costume Cutter Name Role Phone Jas Byrd Primary Care Provider Surgical History Surgery Date Site/Laterality Comments WISDOM TOOTH EXTRACTION PROCEDURE:WISDOM TOOTH EXTRACTION KNEE ARTHROSCOPY 06/03/2019 Left PROCEDURE:KNEE ARTHROSCOPY;COMMENT:Procedure: LEFT KNEE ARTHROSCOPY, PARTIAL MEDIAL MENISCECTOMY; Surgeon: David Pack MD; Location: [facility]; [facility]; Laterality: Left; Medical History Medical History Date [...] DTaP,Tdap,and Td Vaccines (1 - Tdap) 02/16/1984 Pneumococcal Vaccine: 50+ Ye ars (1 of 1 - PCV) 2015 Zoster Vaccines (1 of 2) 2015 COVID-19 Vaccine ( - 2023-2 5 season) 2024 Depression Screening 07/16/2024 Influenza Vaccine (#1) 2025 RSV Immunization Adult Patie nts (1 - 1-dose 75+ series) 02/16/2040 HIB Vaccines Aged Out No longer eligi ble based on patient's age to complete this topic HPV Vaccines Aged Out No longer eligi ble based on patient's age to complete this topic Hepatitis A Vaccines Aged Out No long er eligible based on patient's age to complete this topic Hepatitis B Vaccines Aged Out No long er eligible [...] age to complete this topic Care Teams Costume Cutter Relationship Specialty Start Date End Date Jas Byrd PA [address] [place] [address] PCP - General Physician Fireworks Display Specialist 01/13/25
--- OUTSIDE RECORDS SUMMARY | 2025-02-24 08:33 | XMS_ITS | Encounter Summary ---
Author Organization [facility] Address [address] [place] [address] Care Team Providers Care District Sales Representative Name Role Phone Orlin Chambers MD Primary Care Provider Encounter Details Date Type Department Care Team (Late st Contact Info) Description 02/27/2023 Scanned Document [facility] EMERGENCY MED SCAN Emergency Medicine, Scan Social [...] on filedocumented in this encounter Care Teams District Sales Representative Relationship Specialty Start Date End Date Orlin Chambers MD [address] [place] [id number] PCP - General Family Medicine 01/29/19 08/16/23 Juma Harrington [facility] Pulmonary Disease 11/23/21 documented as of this encounter
--- OUTSIDE RECORDS SUMMARY | 2025-02-24 08:33 | XMS_ITS ---
Author Name [facility] Unknown History of Medication Use Medication Directions Dispensed Refills Start Date End Date Stat us amoxicillin-clavulanat e (AUGMENTIN) 875-125 MG per tablet Take 1 tablet by mouth 2 (two) times a day. 02/27/2023 active losartan (COZAAR) 50 MG tablet Take 1 tablet (50 mg total) by mouth daily. 01/18/2023 active chlorthalidone (HYGROTON) 25 MG tablet Take 1 tablet (25 mg total) by mouth daily. 10/12/2022 active metFORMIN (GLUCOPHAGE) 500 MG tablet TAKE 1 TABLET BY MOUTH TWICE A DAY WITH MEALS 10/10/2022 active simvastatin (ZOCOR) 80 MG tablet TAKE 1 TABLET BY MOUTH EVERY DAY EVERY NIGHT 03/21/2022 active mometasone (ELOCON) 0.1 % lotion APPLY TO AFFECTED AREAS ON SCALP TWICE DAILY FOR 2 WEEKS, BREAK 1 WEEK AND REPEAT NEEDED 11/02/2021 active calcium gluconate 9.3 mg/mL Ca++ Take 1 capsule by mouth daily. active Allergies Allergen Reaction Severity Comment Documented Date Source Statu s ASPIRIN GI INTOLERANCE/NAUSEA/VOMITING 05/01/2016 [facility] active Problems Problem Status Onset Date Problem Type Date of Resoluti on Source Type 2 diabetes mellitus without complication, without long-term current use of insulin active 2022-06-09 ProblemAct [facility] Nocturia active 2021-06-08 ProblemAct [facility] Erectile dysfunction active 2021-07-18 ProblemAct [facility] Lung nodule active 2019-05-21 ProblemAct [facility] Elevated serum creatinine active 2022-06-09 ProblemAct [facility] Insomnia active 2019-04-07 ProblemAct [facility] Hypertension active 2021-06-08 ProblemAct [facility] ТАТЬЯНА (obstructive sleep apnea) active 2019-03-13 ProblemAct [facility] Chronic pain of left knee active 2019-04-07 [facility] COPD (chronic obstructive pulmonary disease) active 2019-05-21 ProblemAct [facility] Lumbar radiculopathy active 2020-08-23 ProblemAct [facility] BMI 36.0-36.9,adult active 2022-06-09 ProblemAct [facility] Immunizations Vaccine Date Source Lot Number Status Covid-19 MRNA Vaccine - Pfiz er 12+ (Purple Cap) 07/18/2021 [facility] [id number] completed Influenza Inactivated/Split Preservative Free IM 07/18/2021 [facility] [id number] completed Covid-19 MRNA Vaccine - Pfiz er 12+ (Purple Cap) 10/20/2020 [facility] [id number] completed Covid-19 MRNA Vaccine - Pfiz er 12+ (Purple Cap) 09/29/2020 [facility] [id number] completed Influenza (AFLURIA/FLUZONE) Inactivated/Split Quadrivalent with Preservative IM 03/19/2012 [facility] [id number] completed Tdap 03/31/2008 [facility] completed Encounters Encounter Type Encounter Reason Primary Diagnosis Location Date Ambulatory Persons encountering health services in other specified circumstances Persons encountering health services in other specified circumstances [facility] Ambulatory Abnormal electrocardiogram (ECG) (EKG) [facility] Ambulatory Other specified abnormal findings of blood chemistry [facility] 2 Ambulatory Essential (prima ry) hypertension [facility] 2 Ambulatory [facility] 2 Ambulatory Encounter for ge neral adult medical examination without abnormal findings [facility], [facility] Organization Name Specialty Phone Email Start Date End Da te [facility] 11/05/2023 [facility] 11[facility]/2023 [facility] 06/07/2022 [facility] Orlin Bermudez [facility] 06/08/2021 11/24/19
--- OUTSIDE RECORDS SUMMARY | 2025-02-24 08:33 | XMS_ITS | Clinical Summary ---
Author Organization [facility] Address [address] [place] [address] Care Team Providers Care Paperhanger Name Role Phone Orlin Chambers Primary Care Provider [phone] Allergies No known active allergies Medications Medication [...] 73 06/03/2019 10:18 AM EST Temperature 36.1 C (97 F) 06/03/2019 10:00 AM EST Respiratory Rate 14 06/03/2019 10:18 AM EST Oxygen Saturation 97% 06/03/2019 10:18 AM EST Inhaled Oxygen Concentration - - Weight 99.8 kg (220 lb) 05/29/2019 4:15 PM EST Height 171.5 cm (5' 7.5 ) 05/29/2019 4:15 PM EST Body Mass Index 33.95 05/29/2019 4:15 PM EST Plan of Treatment Health Maintenance Due Date Last Done Comments Hepatitis C Screening 1965 COVID-19 Vaccine (#1) 1965 Depression Screening 1977 BMI Counseling 1983 Preventative Health Evaluation 1983 Colon Cancer Screening (Colonoscopy) 2010 Shingrix-Zoster Vaccine (1 of 2) 2015 DTap / Tdap / Td (2 - Td or Tdap) 03/31/2018 008 Influenza Vaccine (#1) 2025 03/19/2012 RSV Adult > 60+ Yrs or Pregn ant (1 - 1-dose 75+ series) 02/16/2040 Hepatitis B Vaccines Aged Out No long er eligible based on patient's age to complete this topic Pneumococcal Vaccine Aged Out No long er eligible based on patient's age to complete this topic RSV Ped < 20 months Aged Out No longe r eligible based on patient's age to complete this topic Care Teams Paperhanger Relationship Specialty Start Date End Date Orlin Chambers DO PCP - General Family Medicine 06/17/18
--- OUTSIDE RECORDS SUMMARY | 2025-02-24 08:33 | XMS_ITS | Clinical Summary ---
Author Organization [facility] Address [address] [place] [address] Care Team Providers Care Survival Specialist Name Role Phone Pcp, No MD Primary [...] Sigmoidoscopy - 5y 1965 HIV Screening 1965 Pneumococcal Vaccine, 50+ Ye ars (1 of 1 - PCV) 2015 Zoster Vaccines (1 of 2) 2015 COVID-19 Vaccine ( - 2023-2 5 season) 2024 Influenza Vaccine (#1) 2025 07/18/2021 DTaP,Tdap,and Td Vaccines (2 - Td [...] age to complete this topic Care Teams Survival Specialist Relationship Specialty Start Date End Date PcpVonda MD [address] [place] [address] PCP - General Internal Medicine 02/21/21
== END 2025-02-24 08:43 | disposition home or self-care (01) ==
LOC: HO.HPS 08:21
PROVIDERS: PCP Physician Assistant; Visit Provider Hospitalist
DX: R91.1 Solitary pulmonary nodule (principal); G47.33 Obstructive sleep apnea (adult) (pediatric); Z12.2 Encounter for screening for malignant neoplasm of respiratory organs; R06.09 Other forms of dyspnea
CPT/HCPCS: 99214

== ENCOUNTER 2025-03-06 01:18 | Emergency (ER) | payer OTHER, SELFPAY ==
--- NOTE | ~2025-03-06 | CT_ITS ---
CLINICAL HISTORY: LLQ pain, diverticulitis? CT abdomen and pelvis with contrast Comparison: CT/AR/SR - CT ABDOMEN PELVIS WITH IV CONTRAST - 02/27/23 07:52 EDT Findings: The lung bases are clear. The gallbladder and solid organs are within normal limits. No renal stones. Sigmoid diverticula are present with mild adjacent fat stranding or inflammatory change. Visualized appendix is normal. The bones are intact. IMPRESSION: Sigmoid diverticulitis. This document has been electronically signed by: Ivan Cali MD, PHD on 03/06/2025 03:10:57
[2025-03-06 01:30] VITALS: BP 130/81; PULSE 86; RESP 18; TEMP 36.7; O2SAT 97; BMI 31.5
[2025-03-06 01:59] LABS: MANUAL DIFF FLAG NO
[2025-03-06 02:00] VITALS: BP 116/72; PULSE 78; RESP 18; TEMP 36.6; O2SAT 96
[2025-03-06 02:00] LABS: Hematocrit 38.6 % (42.0-52.0); Hemoglobin 13.0 g/dl (14.0-18.0); Imm Gran Abs Auto 0.04 X10*3/uL (0.00-0.03); Imm Gran Pct Auto 0.4 % (0.0-0.4); Lymphocytes Absolute Auto 1.5 X10*3/uL (1.2-4.9); Mean Corpuscular HGB Conc 33.7 g/dl (31.0-36.0); Mean Corpuscular Hemoglobin 28.4 pg (27.0-33.0); Mean Corpuscular Volume 84.5 fL (80.0-98.0); NRBC Abs Auto 0.000 X10*3/uL (0.0-0.012); NRBC Pct Auto 0.0 /100WBC (0.0-0.2); Platelet Count 208 X10*3/uL (160-400); Red Blood Count 4.57 X10*6/uL (4.60-5.80); White Blood Count 9.6 X10*3/uL (4.8-10.8)
--- NOTE | 2025-03-06 02:01 | PC.NURSE ---
pt change into hospital attire, labs collected and sent. pt awaiting CT Scan.
[2025-03-06 02:19] LABS: Alanine Aminotransferase 28 U/L (0-40); Albumin Level 4.3 g/dL (3.5-5.0); Alkaline Phosphatase 83 U/L (39-117); Anion Gap 17 (12-20); Aspartate Amino Transferase 23 U/L (5-37); Blood Urea Nitrogen 29 mg/dL (9-16); Calcium 9.8 mg/dL (8.4-10.2); Carbon Dioxide 22 mmol/L (22-29); Chloride 106 mmol/L (96-108); Creatinine Clr Calc Pharmacy 71.0; Estimated Glomerular Filt Rate > 60; Lipase 20 U/L (8-78); Magnesium 1.9 mg/dL (1.6-2.6); Potassium 4.4 mmol/L (3.3-5.1); Sodium 141 mmol/L (135-145); Total Protein 7.3 g/dL (6.5-8.0)
[2025-03-06] MEDS: iohexoL 350 MG/ML 100 ML INFUS..BTL 85 ML IV (02:30)
--- NOTE | 2025-03-06 03:03 | ED.ABDPAIN ---
HPI - Abdominal Pain General Chief Complaint: Abdominal Pain Stated Complaint: abd pain Time Seen by Provider: 03/06/25 01:31 Source: patient Limitations: no limitations History of Present Illness ED Provider: Odessa Leslie PA-C HPI narrative: 60-year-old male with a history of diabetes, chronic kidney disease, hyperlipidemia, hypertension, GERD, diverticulitis who presents with abdominal pain times 2 days. Patient states he has been having intermittent left lower abdominal discomfort. The pain fluctuates in intensity, becoming severe at times. Overnight, his discomfort increased in severity and woken from sleep. Denies nausea vomiting diarrhea or fever. Denies dysuria, hematuria or history of kidney stones. Related Data Home Medications ?Medication ?Instructions ?Recorded ?Confirmed CPAP (CPAP Machine/Device) 02/01/24 12/31/24 Previous Rx's ?Medication ?Instructions ?Recorded sildenafil 50 mg tablet 50 mg PO DAILY PRN intercourse #30 12/17/23 tabs chlorthalidone 25 mg tablet 25 mg PO BEDTIME 90 days #90 tabs 02/20/24 Held on 04/10/24. Instructions: Doctor's Order hydroxyzine HCl 25 mg tablet 25 mg PO BEDTIME 30 days #30 tabs 04/10/24 losartan 50 mg tablet 50 mg PO BEDTIME #90 tabs 07/19/24 lorazepam 0.5 mg tablet 0.5 mg PO BID anxiety 30 days #60 09/17/24 Held on 10/16/24. tabs Instructions: Doctor's Order trazodone 50 mg tablet 50 mg PO BEDTIME 90 days #90 tabs 12/15/24 atorvastatin 20 mg tablet (Lipitor) 20 mg PO DAILY 90 days #90 tabs 12/31/24 hydrochlorothiazide 12.5 mg tablet 12.5 mg PO DAILY 90 days #90 tabs 12/31/24 tirzepatide 5 mg/0.5 mL 5 mg (0.5 mL) subcut QWEEK 4 weeks 01/19/25 subcutaneous pen injector #2 mL (Goyo) clonazepam 0.5 mg tablet 0.5 mg PO DAILY 14 days #14 tabs 01/22/25 metformin 500 mg tablet 500 mg PO DAILY #90 tabs 01/29/25 levofloxacin 750 mg tablet 750 mg PO DAILY #6 tabs 03/06/25 metronidazole 500 mg tablet 500 mg PO Q8H 7 days #21 tabs 03/06/25 ondansetron HCl 4 mg tablet 4 mg PO Q8H PRN nausea and 03/06/25 vomiting #10 tabs oxycodone 5 mg tablet 5 mg PO Q8H PRN pain #12 tabs 03/06/25 Allergies Allergy/AdvReac Type Severity Reaction Status Date / Time No Known Allergies (No Known Allergy Verified 03/06/25 01:32 Allergies*) Review of Systems Review of Systems Yes all other systems are reviewed and are negative Constitutional: Denies fatigue and Denies fever(s) Cardiovascular: Denies chest pain and Denies dyspnea Respiratory: Denies cough and Denies dyspnea Gastrointestinal: Reports abdominal pain, Denies constipation, Denies diarrhea, Denies nausea and Denies vomiting Genitourinary: Denies hematuria, Denies dysuria and Denies flank pain Endocrine: Denies fatigue PMFSH Past Medical History Attestation statement: The following information was validated with the patient. Medical History Lower extremity edema Dyspnea ТАТЬЯНА (obstructive sleep apnea) Pulmonary nodules Obese Personal history of nicotine dependence Erectile dysfunction HLD (hyperlipidemia) Type 2 diabetes mellitus HTN (hypertension) Surgical History History of repair of right rotator cuff History of left knee surgery History of colonoscopy Family History Family History Mother Lung cancer Father Diabetes Bladder cancer Heart attack Brother Hypertension Diabetes Maternal Grandmother Hypertension Arthritis Maternal Aunt Family history of malignant neoplasm of female breast Social History Social History Household Members: Family Housing: House Do you presently have visiting nurse or other home services: No Alcohol intake: never Patient Tobacco Use Status: Former Tobacco user Years Smoked: (onset 16yo, 1.5ppd x 35yrs, 50pyh, quit 2015) Smoked in Last 30 Days: No e-Cigarette/Vaping Use: Never Used Use of substances other than those prescribed or required for medical reasons: No Advance Directives: No service: No Current occupational status: employed Cognitive needs: No Hearing needs: No Vision needs: Yes (Reading glasses) Physical Exam ED Vital Signs: Vital Signs - 24 hr 03/06/25 01:30 03/06/25 02:00 Temperature 98.1 F 97.9 F Pulse Rate 86 78 Respiratory Rate 18 18 Blood Pressure 130/81 116/72 Pulse Oximetry 97 96 Oxygen Delivery Method Room Air Room Air BMI result Body Mass Index 31.5 Const Other: Alert Orientation/consciousness: patient oriented x3 Resp Effort & Inspection: normal respiratory effort Cardio Other: Normal peripheral perfusion GI Other: Abdomen is soft, nondistended, moderate tenderness over left lower quadrant with a mild to moderate involuntary guarding General: Yes no CVA tenderness Back/Spine/Pelvis Back: no CVA tenderness Skin Other: Warm dry no rash Neuro General: patient oriented x3, gait normal, no focal motor deficits and CN's II-XI intact bilaterally Psych Other: Calm cooperative Medical Decision Making Medical Decision Making MDM Narrative: 60-year-old male with a history of diabetes, chronic kidney disease, hyperlipidemia, hypertension, GERD, diverticulitis who presents with abdominal pain times 2 days. Patient states he has been having intermittent left lower abdominal discomfort. The pain fluctuates in intensity, becoming severe at times. Overnight, his discomfort increased in severity and woken from sleep. Denies nausea vomiting diarrhea or fever. Denies dysuria, hematuria or history of kidney stones. Problem: Age, diabetes, chronic kidney disease, known diverticulitis History: Per patient I have considered the following differential diagnoses: Diverticulitis, UTI, renal colic, abdominal wall strain Plan: The patient has focal left lower quadrant discomfort on exam, he has a history of diverticulitis, this is my greatest concern. We will obtain a CT scan. Ordering screening labs and a urinalysis. Thought about renal colic, however he has no history, he has no you related symptoms. Likewise, thought about pyelonephritis, however he has no CVA tenderness, is afebrile. He has no mechanism of injury to support abdominal wall strain. I have independently reviewed the following tests: Labs: No leukocytosis, not anemic, no electrolyte abnormality noted CT abdomen and pelvis:Findings: The lung bases are clear. The gallbladder and solid organs are within normal limits. No renal stones. Sigmoid diverticula are present with mild adjacent fat stranding or inflammatory change. Visualized appendix is normal. The bones are intact. IMPRESSION: Sigmoid diverticulitis. Treating the patient with Levaquin and metronidazole. To note, it does say the patient has chronic kidney disease, however his creatinine clearance is 71, he does not require renal dosing Lab Data 03/06/25 01:55 03/06/25 01:55 Labs: Lab Results 03/06/25 Range/Units 01:55 WBC 9.6 (4.8-10.8) X10*3/uL RBC 4.57 L (4.60-5.80) X10*6/uL Hgb 13.0 L (14.0-18.0) g/dl Hct 38.6 L (42.0-52.0) % MCV 84.5 (80.0-98.0) fL MCH 28.4 (27.0-33.0) pg MCHC 33.7 (31.0-36.0) g/dl RDW 12.9 (11.0-16.0) % Plt Count 208 (160-400) X10*3/uL MPV 10.3 (9.4-12.4) fL Immature Gran % (Auto) 0.4 (0.0-0.4) % Neut % (Auto) 70.8 (45-73) % Lymph % (Auto) 15.6 L (20-40) % [place] % (Auto) 10.6 (2-11) % Eos % (Auto) 2.2 (0-4) % Baso % (Auto) 0.4 (0-2) % Lymph # (Auto) 1.5 (1.2-4.9) X10*3/uL [place] # (Auto) 1.0 (0.1-1.2) X10*3/uL Eos # (Auto) 0.2 (0.0-0.4) X10*3/uL Baso # (Auto) 0.0 (0.0-0.2) X10*3/uL Abs Immat Gran (auto) 0.04 H (0.00-0.03) X10*3/uL Absolute Neuts (auto) 6.8 (2.0-8.3) x10*3/uL Absolute Nucleated RBC 0.000 (0.0-0.012) X10*3/uL Nucleated RBC % (auto) 0.0 (0.0-0.2) /100WBC Sodium 141 (135-145) mmol/L Potassium 4.4 (3.3-5.1) mmol/L Chloride 106 (96-108) mmol/L Carbon Dioxide 22 (22-29) mmol/L Anion Gap 17 (12-20) BUN 29 H (9-16) mg/dL Creatinine 1.19 (0.5-1.4) mg/dL Estim Creat Clear Calc 71.0 Estimated GFR > 60 Random Glucose 101 (60-115) mg/dL Calcium 9.8 (8.4-10.2) mg/dL Magnesium 1.9 (1.6-2.6) mg/dL Total Bilirubin 0.4 (0.0-1.0) mg/dL AST 23 (5-37) U/L ALT 28 (0-40) U/L Alkaline Phosphatase 83 (39-117) U/L Total Protein 7.3 (6.5-8.0) g/dL Albumin 4.3 (3.5-5.0) g/dL Lipase 20 (8-78) U/L Medications Administered Discontinued Medications Generic Name Dose Route Start Last Admin Trade Name Freq PRN Reason Stop Dose Admin Sodium Chloride 1,000 mls @ 999 mls/hr 03/06/25 01:45 03/06/25 03:01 Ns IV 03/06/25 02:45 Infused .Q1H1M ERASTO Infusion Iohexol 85 ml 03/06/25 02:30 03/06/25 02:30 Iohexol 350 Mg/Ml 100 Ml Infus..Btl IV 03/06/25 02:31 85 ml ONCE ONE Administration Levofloxacin 750 mg 03/06/25 03:19 03/06/25 03:25 Levofloxacin 750 Mg Tablet PO 03/06/25 03:20 750 mg ONCE ONE Administration Metronidazole 500 mg 03/06/25 03:19 03/06/25 03:25 Metronidazole 500 Mg Tablet PO 03/06/25 03:20 500 mg ONCE ONE Administration Morphine Sulfate 4 mg 03/06/25 01:38 03/06/25 01:59 Morphine Sulfate 4 Mg/Ml Cartridge IVPUSH 03/06/25 01:39 4 mg ONCE ONE Administration Protocol Discharge Plan Discharge Clinical Impression: Diverticulitis of sigmoid colon Patient Disposition: Home, Self-Care Instructions: Diverticulitis (ED), Diverticulitis Diet (ED) Additional Instructions: You were found to have diverticulitis. See home care instructions. Take the levofloxacin as directed, take the Flagyl as directed. Use the oxycodone as needed for pain. This medication can be constipating, you may require [id number] stool softener such as Colace. Uses Zofran as needed for nausea if you develop it. Follow up with your primary care provider as needed. Prescriptions: New levofloxacin 750 mg tablet 750 mg PO DAILY Qty: 6 0RF metronidazole 500 mg tablet 500 mg PO Q8H 7 Days Qty: 21 0RF ondansetron HCl 4 mg tablet 4 mg PO Q8H PRN (Reason: nausea and vomiting) Qty: 10 0RF oxycodone 5 mg tablet 5 mg PO Q8H PRN (Reason: pain) Qty: 12 0RF Rx Instructions: Partial Fill upon patient request. No Action sildenafil 50 mg tablet 50 mg PO DAILY PRN (Reason: intercourse) Qty: 30 1RF chlorthalidone 25 mg tablet 25 mg PO BEDTIME 90 Days Qty: 90 1RF losartan 50 mg tablet 50 mg PO BEDTIME Qty: 90 2RF lorazepam 0.5 mg tablet 0.5 mg PO BID 30 Days Qty: 60 1RF trazodone 50 mg tablet 50 mg PO BEDTIME 90 Days Qty: 90 2RF Mounjaro 5 mg/0.5 mL pen injector 5 mg subcut QWEEK 28 Days Qty: 2 2RF clonazepam 0.5 mg tablet 0.5 mg PO DAILY 14 Days Qty: 14 2RF metformin 500 mg tablet 500 mg PO DAILY Qty: 90 0RF hydroxyzine HCl 25 mg tablet 25 mg PO BEDTIME 30 Days Qty: 30 0RF (DME) CPAP Machine/Device Device See Rx Instructions .Route Rx Instructions: As directed hydrochlorothiazide 12.5 mg tablet 12.5 mg PO DAILY 90 Days Qty: 90 1RF atorvastatin [Lipitor] 20 mg tablet 20 mg PO DAILY 90 Days Qty: 90 1RF Print Language: Cambodian
--- NOTE | 2025-03-06 03:30 | PC.NURSE ---
medicated per mar.
[2025-03-06] MEDS: oxyCODONE HCl Immed Release 5 MG TABLET 10 MG PO (03:47)
[2025-03-06 03:49] VITALS: BP 116/72; PULSE 78; RESP 18; TEMP 36.6; O2SAT 96
--- NOTE | 2025-03-06 03:49 | PC.NURSE ---
medicated per sep. reviewed discharge instructions with pt. pt verbalized understanding, no sign of distress.
== END 2025-03-06 03:50 | disposition home or self-care (01) ==
PROVIDERS: Physician Assistant Medical; Emergency Provider Emergency Medicine; PCP Physician Assistant
DX: K57.32 Diverticulitis of large intestine without perforation or abscess without bleeding (principal); R10.32 Left lower quadrant pain; R11.0 Nausea; Z87.891 Personal history of nicotine dependence; Z79.899 Other long term (current) drug therapy
CPT/HCPCS: 36415; 74177; 80053; 83690; 83735; 85025; 96361; 96374; 99284; 99285; J2270; Q9967

== ENCOUNTER → 2025-03-06 01:38 | Outpatient (BNV) | payer OTHER, SELFPAY | PROVIDERS: Emergency Provider Emergency Medicine; PCP Physician Assistant; Visit Provider General Practice | DX: K57.32 Diverticulitis of large intestine without perforation or abscess without bleeding (principal) | CPT/HCPCS: 74177 ==

== ENCOUNTER 2025-04-02 07:32 | Outpatient (REF) | payer OTHER, SELFPAY ==
--- OUTSIDE RECORDS SUMMARY | 2025-04-02 07:35 | XMS_ITS | Encounter Summary ---
Author Organization [facility] Address [address] [place] [address] Care Team Providers Care Correction Officer Head Name Role Phone Orlin Chambres MD Primary Care Provider [phone] Reason for Visit * Reason Comments Medication Refill Encounter Details Date Type Department Care Team (Late st Contact Info) Description 04/12/2023 Refill [facility] [address] [address] Orlin Chambers MD 100 [facility] [address] [place], [place] [phone] Insomnia, unspecified type Social History Tobacco Use [...] type documented in this encounter Care Teams Correction Officer Head Relationship Specialty Start Date End Date Orlin Chambers MD 100 [place] [address] PCP - General Family Medicine 01/29/19 08/16/23 Juma Harrington [facility] Pulmonary Disease 11/23/21 documented as of this encounter
--- OUTSIDE RECORDS SUMMARY | 2025-04-02 07:35 | XMS_ITS | Encounter Summary ---
Author Organization [facility] Address [address] [place] [address] Care Team Providers Care Cst Name Role Phone Orlin Chambers MD Primary Care Provider [phone] Reason for Visit * Reason Onset Date Comments Medication Refill 04/12/2023 Encounter Details Date Type Department Care Team (Late st Contact Info) Description 04/12/2023 Refill [facility] [address] [place] [address] [address] [place] [address] Orlin Chambers MD 100 [facility] [address] [place], [place] [id number] Insomnia, unspecified type Social History Tobacco Use [...] type documented in this encounter Care Teams Cst Relationship Specialty Start Date End Date Orlin Chambers MD 100 [place] [address] PCP - General Family Medicine 01/29/19 08/16/23 Juma Harrington [facility] Pulmonary Disease 11/23/21 documented as of this encounter
--- OUTSIDE RECORDS SUMMARY | 2025-04-02 07:35 | XMS_ITS | Encounter Summary ---
Author Organization [facility] Address [address] [place] [address] Care Team Providers Care Customer Service Leader Name Role Phone Orlin Chambers MD Primary Care Provider [phone] Encounter Details Date Type Department Care Team (Late st Contact Info) Description 02/27/2023 Scanned Document [facility] EMERGENCY MED SCAN Emergency Medicine, [...] on filedocumented in this encounter Care Teams Customer Service Leader Relationship Specialty Start Date End Date Orlin Chambers MD [address] [place] [address] PCP - General Family Medicine 01/29/19 08/16/23 Juma Harrington [facility] Pulmonary Disease 11/23/21 documented as of this encounter
--- OUTSIDE RECORDS SUMMARY | 2025-04-02 07:35 | XMS_ITS | Encounter Summary ---
Author Organization [facility] Address [address] [place] [address] Care Team Providers Care Mine Utility Operator Name Role Phone Orlin Chambers MD Primary Care Provider [phone] Encounter Details Date Type Department Care Team (Late st Contact Info) Description 02/27/2023 Scanned Document [facility] EMERGENCY MED SCAN Emergency [...] on filedocumented in this encounter Care Teams Mine Utility Operator Relationship Specialty Start Date End Date Orlin Chambers MD [address] [place] [address] PCP - General Family Medicine 01/29/19 08/16/23 Juma Harrington [facility] Pulmonary Disease 11/23/21 documented as of this encounter
--- OUTSIDE RECORDS SUMMARY | 2025-04-02 07:35 | XMS_ITS | Encounter Summary ---
Author Organization [facility] Address [address] [place] [address] Care Team Providers Care Dressing Room Attendant Name Role Phone Orlin Chambers MD Primary Care Provider [phone] Reason for Visit * Reason Comments Medication Refill Encounter Details Date Type Department Care Team (Late st Contact Info) Description 04/10/2023 Refill [facility] [address] [address] Orlin Chambers MD 100 [facility] [address] [place], [place] [phone] Insomnia, unspecified type Social History Tobacco Use [...] type documented in this encounter Care Teams Dressing Room Attendant Relationship Specialty Start Date End Date Orlin Chambers MD 100 [place] [address] PCP - General Family Medicine 01/29/19 08/16/23 Juma Harrington [facility] Pulmonary Disease 11/23/21 documented as of this encounter
--- OUTSIDE RECORDS SUMMARY | 2025-04-02 07:35 | XMS_ITS | Clinical Summary ---
Author Organization [facility] Address [address] [place] [address] Care Team Providers Care Boom Supervisor Name Role Phone Pcp, No MD Primary [...] Vaccines (1 of 2) 2015 COVID-19 Vaccine (1 - 2023-2 5 season) 2025 Influenza Vaccine (#1) 2025 07/18/2021 DTaP,Tdap,and Td [...] age to complete this topic Care Teams Boom Supervisor Relationship Specialty Start Date End Date PcpVonda MD [address] [place] [address] PCP - General Internal Medicine 02/21/21
--- OUTSIDE RECORDS SUMMARY | 2025-04-02 07:35 | XMS_ITS | Encounter Summary ---
Author Organization [facility] Address [address] [place] [address] Care Team Providers Care Lock Fitter Name Role Phone Orlin Chambers MD Primary Care Provider [phone] Encounter Details Date Type Department Care Team (Late st Contact Info) Description 01/30/2023 Scanned Document [facility] ORTHO SURGERY SCAN [place] [address] [place] [address] Social History Tobacco Use Types Packs/Day Years [...] on filedocumented in this encounter Care Teams Lock Fitter Relationship Specialty Start Date End Date Orlin Chambers MD [address] [place] [address] PCP - General Family Medicine 01/29/19 08/16/23 Juma Harrington [facility] Pulmonary Disease 11/23/21 documented as of this encounter
--- OUTSIDE RECORDS SUMMARY | 2025-04-02 07:35 | XMS_ITS | Encounter Summary ---
Author Organization [facility] Address [address] [place] [address] Care Team Providers Care Wooden Box Maker Name Role Phone Orlin Chambers MD Primary Care Provider [phone] Reason for Visit * Reason Comments Medication Refill Encounter Details Date Type Department Care Team (Late st Contact Info) Description 09/12/2019 Refill [facility] 10 100 [facility] [address] [place] [address] Anayeli Del Rosario, CIVIL STRUCTURAL ENGINEER 100 [facility] [address] [place], [place] [phone] Anxiety Social History Tobacco Use Types Packs/Day [...] unspecified documented in this encounter Care Teams Wooden Box Maker Relationship Specialty Start Date End Date Orlin Chambers MD 100 [place] [address] PCP - General Family Medicine 01/29/19 08/16/23 Juma Harringotn [facility] Pulmonary Disease 11/23/21 documented as of this encounter
--- OUTSIDE RECORDS SUMMARY | 2025-04-02 07:35 | XMS_ITS | Encounter Summary ---
Author Organization [facility] Address [address] [place] [address] Care Team Providers Care Knit Goods Washer Name Role Phone Orlin Chambers MD Primary Care Provider [phone] Encounter Details Date Type Department Care Team (Late st Contact Info) Description 02/27/2023 Scanned Document [facility] EMERGENCY MED SCAN Emergency Medicine, [...] on filedocumented in this encounter Care Teams Knit Goods Washer Relationship Specialty Start Date End Date Orlin Chambers MD [address] [place] [address] PCP - General Family Medicine 01/29/19 08/16/23 Juma Harrington [facility] Pulmonary Disease 11/23/21 documented as of this encounter
--- OUTSIDE RECORDS SUMMARY | 2025-04-02 07:35 | XMS_ITS | Encounter Summary ---
Author Organization [facility] Address [address] [place] [address] Care Team Providers Care Asbestos Removal Supervisor Name Role Phone Orlin Chambers MD Primary Care Provider [phone] Reason for Visit * Reason Comments Medication Refill Encounter Details Date Type Department Care Team (Late st Contact Info) Description 08/04/2019 Refill [facility] 10 100 [facility] [address] [place] [address] Anayeli Del Rosario, ENTRY LEVEL JAVA DEVELOPER 100 [facility] [address] [place], [place] [phone] Hyperlipidemia, unspecified hyperlipidemia type Social History Tobacco [...] type documented in this encounter Care Teams Asbestos Removal Supervisor Relationship Specialty Start Date End Date Orlin Chambers MD 100 [place] [address] PCP - General Family Medicine 01/29/19 08/16/23 Juma Harrington [facility] Pulmonary Disease 11/23/21 documented as of this encounter
--- OUTSIDE RECORDS SUMMARY | 2025-04-02 07:35 | XMS_ITS | Encounter Summary ---
Author Organization [facility] Address [address] [place] [address] Care Team Providers Care Medical Customer Service Representative Name Role Phone Orlin Chambers MD Primary Care Provider [phone] Encounter Details Date Type Department Care Team (Late st Contact Info) Description 01/25/2023 Scanned Document [facility] ORTHO SURGERY SCAN [place], [facility] [address] [place] [address] Social History Tobacco Use Types Packs/Day Years [...] on filedocumented in this encounter Care Teams Medical Customer Service Representative Relationship Specialty Start Date End Date Orlin Chambers MD [address] [place] [address] PCP - General Family Medicine 01/29/19 08/16/23 Juma Harrington [facility] Pulmonary Disease 11/23/21 documented as of this encounter
--- OUTSIDE RECORDS SUMMARY | 2025-04-02 07:35 | XMS_ITS | Encounter Summary ---
Author Organization [facility] Address [address] [place] [address] Care Team Providers Care Talent Acquisition Consultant Name Role Phone Orlin Chambers MD Primary Care Provider Reason for Visit * Reason Onset Date Comments Medication Refill 11/13/2022 Encounter Details Date Type Department Care Team (Late st Contact Info) Description 11/13/2022 Refill [facility] [address] [place] [address] [address] [place] [address] Orlin Chambers MD 100 [facility] [address] [place], [place] [phone] Insomnia, unspecified type Social History Tobacco Use [...] type documented in this encounter Care Teams Talent Acquisition Consultant Relationship Specialty Start Date End Date Orlin Chambesr MD 100 [place] [address] PCP - General Family Medicine 01/29/19 08/16/23 Juma Harrington [facility] Pulmonary Disease 11/23/21 documented as of this encounter
--- OUTSIDE RECORDS SUMMARY | 2025-04-02 07:35 | XMS_ITS | Encounter Summary ---
Author Organization [facility] Address [address] [place] [address] Care Team Providers Care Customer Solutions Supervisor Name Role Phone Orlin Chambers MD Primary Care Provider [phone] Encounter Details Date Type Department Care Team (Late st Contact Info) Description 10/06/2022 Scanned Document [facility] [address] [place] [address] [facility] [address] [address] Social History Tobacco Use Types Packs/Day Years [...] filedocumented in this encounter Care Teams Customer Solutions Supervisor Relationship Specialty Start Date End Date Orlin Chambers MD [address] [address] PCP - General Family Medicine 01/29/19 08/16/23 Juma Harrington [facility] Pulmonary Disease 11/23/21 documented as of this encounter
--- OUTSIDE RECORDS SUMMARY | 2025-04-02 07:35 | XMS_ITS | Clinical Summary ---
Author Organization [facility] Address [address] [place] [address] Care Team Providers Care Street Department Dispatcher Name Role Phone Unavailable Primary Care Provider [...] 93 03/08/2023 8:34 AM EDT Temperature 36.2 C (97.2 F) 03/08/2023 8:34 AM EDT Respiratory Rate 16 03/08/2023 8:34 AM EDT [...] 1975 Ophthalmology Exam 1975 HIV Screening 1978 Pneumococcal Vaccines 50+ (1 of 2 - PCV) 02/16/1984 Colonoscopy 2010 Zoster (Shingles) Vaccine (1 of 2) 2015 DTaP/Tdap/Td Vaccines (2 - Td or Tdap) 03/31/2018 03/31/2008 Lung Cancer Screening (LDCT) 05/29/2020 05/29/2019, 05/28/2019 Hemoglobin A1C 12/04/2022 06/06/2022, 12/07/2021 Lipid Panel 12/07/2022 12/07/2021, 07/16, 07/02/2020 Creatinine with GFR 06/06/2023 06/06/2022, 12/07/2021, 07/29/2021, Additional history exists Microalbumin/Creatinine Ratio Urine 06/06/2023 06/06/2022 Influenza Vaccine 02/13/2025 07/18/2021, , 03/19/2012 RSV Vaccine 60 years and older and Patients (1 - Risk 60-74 years 1-dose series) 2025 COVID-19 Vaccine ( season) 2025 07/18/2021, 10/20/2020, 09/29/2020 Hepatitis B Vaccines Aged Out No long er eligible based on patient's age to complete this topic Procedures Procedure Name Priority Date/Time Associated Diagnosis [...] Urine, Random (06/06/2022 8:55 AM EST) Pathologist [facility] Creatinine, Urine, Random 242 20 - 320 mg/dL [facility] [facility] Microalbumin, Urine, Random 12.1 See Note: mg/dL [employer] Comment: Reference Range: Reference Range Not established Microalbumin/Creat inine Ratio 50(H) <30 mcg/mg creat [employer] Comment: The ADA defines abnormalities in albumin excretion as follows: Albuminuria Category Result (mcg/mg creatinine) Normal to Mildly increased <30 Moderately increased 30-299 Severely increased > OR = 300 The ADA recommends that at least two of three specimens collected within a 3-6 month period be abnormal before considering a patient to be within a diagnostic category. Urine 06/06/2022 8:55 AM EST 06/06/2022 8:55 AM EST Narrative [facility] - 06/07/2022 4:59 PM EST FASTING:YES FASTING: YES us Orlin Chambers MD URINE ORDERABLES Final Result Performing Organization Address [facility] Co de Phone Number [employer] [address] [place] [address], [place] [address] * (ABNORMAL) Hemoglobin A1c (06/06/2022 8:55 AM EST) Hemoglobin A1C 6.5(H) <5.7 % of total Hgb [employer] Comment: For someone without known diabetes, a [...] A1c for diagnosis of diabetes for children. Blood specimen (specimen) Blood specimen / Unknown 06/06/2022 8:55 AM EST 06/06/2022 8:55 AM EST Narrative [facility] - 06/07/2022 4:59 PM EST FASTING:YES FASTING: YES us Orlin Chambers MD LAB BLOOD ORDERABLES Final Re sult [employer] [address], [place] [address] * (ABNORMAL) Basic Metabolic Panel (06/06/2022 8:55 AM EST) Glucose 129(H) 65 - 99 mg/dL [employer] Comment: Fasting reference interval For someone without known diabetes, a glucose value >125 mg/dL indicates that they may have diabetes and this should be confirmed with a follow-up test. Blood Urea Nitrogen (BUN) 33(H) 7 - 25 mg/dL [employer] Creatinine 1.49(H) 0.70 - 1.30 mg/dL [employer] Creatinine w/ eGFR 54(L) > OR = 60 mL/min/1.7 3m2 [employer] Comment: The eGFR is based on the CKD-EPI 2020 equation. To calculate the new eGFR from a previous Creatinine or Cystatin C result, go to https://www.kidney.org/professionals/ kdoqi/gfr%5Fcalculator BUN/Creatinine Ratio 22 6 - 22 (calc) [employer] Sodium 139 135 - 146 mmol/L [employer] Potassium 4.1 3.5 - 5.3 mmol/L [employer] Chloride 102 98 - 110 mmol/L [employer] CO2 27 20 - 32 mmol/L [employer] Calcium 9.5 8.6 - 10.3 mg/dL [employer] Blood specimen (specimen) 06/06/2022 8:55 AM EST 06/06/2022 8:55 AM EST Narrative [facility] - 06/07/2022 4:59 PM EST FASTING:YES FASTING: YES us Orlin Chambers MD LAB BLOOD ORDERABLES Final Re sult [employer] [address] [place] [address], [place] [address] * (ABNORMAL) Lipid Panel [facility] [employer] LDL (12/07/2021 8:13 AM EDT) Cholesterol, Total 191 <200 mg/dL [employer] Cholesterol, HDL 48 > OR = 40 mg/dL [employer] Triglycerides 237(H) <150 mg/dL [employer] Comment: If a non-fasting specimen was collected, consider repeat triglyceride testing on a fasting specimen if clinically indicated. Chris et al. J. of Clin. Lipidol. 2015;9:129-169. LDL Cholesterol 107(H) mg/dL (calc) [employer] Comment: Reference range: <100 Desirable range <100 mg/dL for primary prevention; <70 mg/dL for patients with CHD or diabetic patients with > or = 2 CHD risk factors. LDL-C is now calculated using the Michael-Rosario calculation, which is a validated novel method providing better accuracy than the Friedewald equation in the estimation of LDL-C. Michael SS et al. ELSY. 2013;310(19): 0174-4449 (http://education.RadMit/faq/RMW897) Cholesterol/HDL Ratio 4.0 <5.0 (calc) [employer] Non HDL Chol. (LDL+VLDL) 143(H) <130 mg/dL (calc) [employer] Comment: For patients with diabetes plus 1 major ASCVD risk factor, treating to a non-HDL-C goal of <100 mg/dL (LDL-C of <70 mg/dL) is considered a therapeutic option. Blood specimen (specimen) 12/07/2021 8:13 AM EDT 12/07/2021 8:13 AM EDT Narrative [facility] - 12/08/2021 12:09 AM EDT FASTING:YES FASTING: YES us Orlin Chambers MD LAB BLOOD ORDERABLES Final Re sult [employer] [address], [place] [address] * CT Thorax w/o contrast (05/29/2019 9:23 [...] your patient to us, Travis Villarreal MD [id number] (Electronically Signed - 05/29/2019 09:23) Copy: ORLIN CHAMBERS DO [facility] 10 [address] [place] [address] PATIENT , Narrative 05/29/2019 9:23 AM EST EXAMINATION: CT CHEST WITHOUT CONTRAST CLINICAL INFORMATION: Left lower lobe pulmonary nodule. COMPARISON: No relevant prior studies are available for comparison. TECHNIQUE: Multidetector volumetric CT imaging of the chest was done. Axial MIP volume rendering provided. Sagittal and coronal reformatted images were obtained. DLP: 523.69 mGy-cm FINDINGS: BLUEPRINT REPRODUCER: Unremarkable. LUNGS: There is a 3 mm [...] the visualized upper abdominal structures are unremarkable. OSSEOUS STRUCTURES: No lytic or blastic osseous lesion. Procedure Note Travis Villarreal MD - 05/29/2019 EXAMINATION: CT CHEST WITHOUT CONTRAST CLINICAL INFORMATION: Left lower lobe pulmonary nodule. COMPARISON: No relevant prior studies are available for comparison. TECHNIQUE: Multidetector volumetric CT imaging of the chest was done. Axial MIPvolume rendering provided. Sagittal and coronal reformatted images were obtained. DLP: 523.69 mGy-cm FINDINGS: BLUEPRINT REPRODUCER: Unremarkable. LUNGS: There is a 3 mm nodule medially within the right upper lobe(axial image 151/505). There is an adjacent 1-2 mm nodule (axial [id number]). There is an irregular 0.6 cm nodule [...] interval change. According to the UPDATED 2017 [facility] recommendations, the advised follow up imaging [...] your patient to us, Travis Villarreal MD [id number] (Electronically Signed - 05/29/2019 09:23) Copy: ORLIN CHAMBERS DO [facility] 10 100 [facility] [place] [address] PATIENT , Kelly Bustillo MD IMG CT ORDERABLES Final Result from Last 3 Months or Most Recently Relevant to Health Maintenance Insurance [employer] [place] [employer] MEDICARE Care Teams Street Department Dispatcher Relationship Specialty Start Date End Date Juma Harrington [facility] Pulmonary Disease 11/23/21
--- OUTSIDE RECORDS SUMMARY | 2025-04-02 07:35 | XMS_ITS | Encounter Summary ---
Author Organization [facility] Address [address] [place] [address] Care Team Providers Care Resin Mixer Name Role Phone Orlin Chambers MD Primary Care Provider [phone] Reason for Visit * Reason Onset Date Comments Medication Refill 11/10/2022 Encounter Details Date Type Department Care Team (Late st Contact Info) Description 11/10/2022 Refill [facility] [address] [place] [address] [address] [place] [address] Orlin Chambers MD 100 [facility] Liam [address] [place], [place] [id number] Insomnia, unspecified type Social History Tobacco Use [...] type documented in this encounter Care Teams Resin Mixer Relationship Specialty Start Date End Date Orlin Chambers MD 100 [place] [address] PCP - General Family Medicine 01/29/19 08/16/23 Juma Harrington [facility] Pulmonary Disease 11/23/21 documented as of this encounter
--- OUTSIDE RECORDS SUMMARY | 2025-04-02 07:35 | XMS_ITS | Encounter Summary ---
Author Organization [facility] Address [address] [place] [address] Care Team Providers Care Foil Spooler Name Role Phone Orlin Chambers MD Primary Care Provider [phone] Encounter Details Date Type Department Care Team (Late st Contact Info) Description 09/05/2022 Scanned Document [facility] 10 100 [facility] 203 [place] [address] Orlin Chambers MD 100 [facility] Liam [address] [place] [address] Social History Tobacco Use Types Packs/Day Years [...] on filedocumented in this encounter Care Teams Foil Spooler Relationship Specialty Start Date End Date Orlin Chambers MD [address] [address] PCP - General Family Medicine 01/29/19 08/16/23 Juma Harrington [facility] Pulmonary Disease 11/23/21 documented as of this encounter
--- OUTSIDE RECORDS SUMMARY | 2025-04-02 07:35 | XMS_ITS | Clinical Summary ---
Author Organization [facility] Address [address] [place] [address] Care Team Providers Care Supervisor Asbestos Removal Name Role Phone Orlin Chambers Primary Care Provider [phone] Allergies No known active allergies Medications Medication [...] age to complete this topic Care Teams Supervisor Asbestos Removal Relationship Specialty Start Date End Date Orlin Chambers DO PCP - General Family Medicine 06/17/18
--- OUTSIDE RECORDS SUMMARY | 2025-04-02 07:35 | XMS_ITS | Encounter Summary ---
Author Organization [facility] Address [address] [place] [address] Care Team Providers Care Steel Rule Die Maker Apprentice Name Role Phone Orlin Chambers MD Primary Care Provider [phone] Reason for Visit * Reason Onset Date Comments Medication Refill 04/10/2023 Encounter Details Date Type Department Care Team (Late st Contact Info) Description 04/10/2023 Refill [facility] [address] [place] [address] [address] [place] [address] Orlin Chambers MD [address] [facility] Liam [address] [place], [place] [phone] Insomnia, unspecified type Social History Tobacco Use [...] type documented in this encounter Care Teams Steel Rule Die Maker Apprentice Relationship Specialty Start Date End Date Orlin Chambers MD 100 [place] [address] PCP - General Family Medicine 01/29/19 08/16/23 Juma Harrington [facility] Pulmonary Disease 11/23/21 documented as of this encounter
--- OUTSIDE RECORDS SUMMARY | 2025-04-02 07:35 | XMS_ITS | Encounter Summary ---
Author Organization [facility] Address [address] [place] [address] Care Team Providers Care Motorcycle Sales Associate Name Role Phone Orlin Chambers MD Primary Care Provider [phone] Encounter Details Date Type Department Care Team (Late st Contact Info) Description 10/06/2022 Scanned Document [facility] ORTHO SURGERY SCAN [facility] [address] [place] [address] Social History Tobacco Use Types Packs/Day Years [...] on filedocumented in this encounter Care Teams Motorcycle Sales Associate Relationship Specialty Start Date End Date Orlin Chambers MD [address] [place] [address] PCP - General Family Medicine 01/29/19 08/16/23 Juma Harrington [facility] Pulmonary Disease 11/23/21 documented as of this encounter
--- OUTSIDE RECORDS SUMMARY | 2025-04-02 07:35 | XMS_ITS | Encounter Summary ---
Author Organization [facility] Address [address] [place] [address] Care Team Providers Care Visiting Nurse Name Role Phone Orlin Chambers MD Primary Care Provider [phone] Encounter Details Date Type Department Care Team (Late st Contact Info) Description 06/03/2019 Scanned Document [facility] [place] [address] [address] Provider, Generic Social History Tobacco [...] on filedocumented in this encounter Care Teams Visiting Nurse Relationship Specialty Start Date End Date Orlin Chambers MD 100 [facility] Liam [address] [place], [place] [phone] PCP - General Family Medicine 01/29/19 08/16/23 Juma Harrington [facility] Pulmonary Disease 11/23/21 documented as of this encounter
--- OUTSIDE RECORDS SUMMARY | 2025-04-02 07:35 | XMS_ITS | Encounter Summary ---
Author Organization [facility] Address [address] [place] [address] Care Team Providers Care Template Inspector Name Role Phone Orlin Chambers MD Primary Care Provider [phone] Encounter Details Date Type Department Care Team (Late st Contact Info) Description 08/29/2022 Scanned Document [facility] ORTHO SURGERY SCAN [place] 31 [place] [address] Social History Tobacco Use Types Packs/Day Years [...] on filedocumented in this encounter Care Teams Template Inspector Relationship Specialty Start Date End Date Orlin Chambers MD [address] [place] [address] PCP - General Family Medicine 01/29/19 08/16/23 Juma Harrington [facility] Pulmonary Disease 11/23/21 documented as of this encounter
--- OUTSIDE RECORDS SUMMARY | 2025-04-02 07:35 | XMS_ITS | Encounter Summary ---
Author Organization [facility] Address [address] [place] [address] Care Team Providers Care Vp Account Director Name Role Phone Orlin Chambers MD Primary Care Provider Reason for Visit * Reason Comments Medication Refill Encounter Details Date Type Department Care Team (Late st Contact Info) Description 11/04/2019 Refill [facility] 10 100 [facility] [address] [place] [address] Anayeli Del Rosario, ANTHROPOLOGY LECTURER 100 [facility] Liam [address] [place], [place] [phone] Anxiety Social History Tobacco Use Types Packs/Day [...] unspecified documented in this encounter Care Teams Vp Account Director Relationship Specialty Start Date End Date Orlin Chambers MD [address] [address] PCP - General Family Medicine 01/29/19 08/16/23 Juma Harrington [facility] Pulmonary Disease 11/23/21 documented as of this encounter
--- OUTSIDE RECORDS SUMMARY | 2025-04-02 07:35 | XMS_ITS | Encounter Summary ---
Author Organization [facility] Address [address] [place] [address] Care Team Providers Care Campaign Associate Name Role Phone Unavailable Primary Care Provider Unavailabl e Encounter Details Date Type Department Care Team ([facility] st Contact Info) Description 11/05/2023 Scanned Document [facility] CARDIOLOGY SCAN Cardiology, Scan Social [...] on filedocumented in this encounter Care Teams Campaign Associate Relationship Specialty Start Date End Date Juma Harrington [facility] Pulmonary Disease 11/23/21 documented as of this encounter
--- OUTSIDE RECORDS SUMMARY | 2025-04-02 07:35 | XMS_ITS | Encounter Summary ---
Author Organization [facility] Address [address] [place] [address] Care Team Providers Care Chainer Name Role Phone Orlin Chambers MD Primary Care Provider [phone] Reason for Visit * Reason Comments Medication Refill Encounter Details Date Type Department Care Team (Late st Contact Info) Description 10/09/2022 Refill [facility] [address] [facility] [address] [place] [address] Anayeli Del Rosario APRN 100 [facility] Liam [address] [place], [place] [phone] Anxiety Social History Tobacco Use Types Packs/Day [...] unspecified documented in this encounter Care Teams Chainer Relationship Specialty Start Date End Date Orlin Chambers MD 100 [place] [address] PCP - General Family Medicine 01/29/19 08/16/23 Juma Harrington [facility] Pulmonary Disease 11/23/21 documented as of this encounter
--- OUTSIDE RECORDS SUMMARY | 2025-04-02 07:35 | XMS_ITS | Encounter Summary ---
Author Organization [facility] Address [address] [place] [address] Care Team Providers Care Global Marketing Operations Manager Name Role Phone Orlin Chambers MD Primary Care Provider Encounter Details Date Type Department Care Team (Late st Contact Info) Description 12/06/2022 Scanned Document [facility] [address] [address] Cardiology, Scan Social History Tobacco [...] on filedocumented in this encounter Care Teams Global Marketing Operations Manager Relationship Specialty Start Date End Date Orlin Chambers MD 100 [place] [address] PCP - General Family Medicine 01/29/19 08/16/23 Juma Harrington [facility] Pulmonary Disease 11/23/21 documented as of this encounter
--- OUTSIDE RECORDS SUMMARY | 2025-04-02 07:35 | XMS_ITS | Encounter Summary ---
Author Organization [facility] Address [address] [place] [address] Care Team Providers Care Rink Rat Name Role Phone Orlin Chambers MD Primary Care Provider [phone] Encounter Details Date Type Department Care Team (Late st Contact Info) Description 01/29/2019 Scanned Document [facility] 10 100 [facility] [address] [place] [address] Provider, Hortencia, [address] [place] [address] Social History Tobacco Use Types Packs/Day Years [...] on filedocumented in this encounter Care Teams Rink Rat Relationship Specialty Start Date End Date Orlin Chambers MD 100 [facility] [address] [place], [place] [phone] PCP - General Family Medicine 01/29/19 08/16/23 Juma Harrington [facility] Pulmonary Disease 11/23/21 documented as of this encounter
--- OUTSIDE RECORDS SUMMARY | 2025-04-02 07:35 | XMS_ITS | Encounter Summary ---
Author Organization [facility] Address [address] [place] [address] Care Team Providers Care Tie Binder Name Role Phone Orlin Chambers MD Primary Care Provider Reason for Visit * Reason Comments Medication Refill Encounter Details Date Type Department Care Team (Late st Contact Info) Description 02/01/2020 Refill [facility] 10 100 [facility] [address] [place] [address] Anayeli Del Rosario, FUNERAL ASSISTANT 100 [facility] Liam [address] [place], [place] [phone] Anxiety Social History Tobacco Use Types Packs/Day [...] unspecified documented in this encounter Care Teams Tie Binder Relationship Specialty Start Date End Date Orlin Chambers MD 100 [place] [address] PCP - General Family Medicine 01/29/19 08/16/23 Juma Harrington [facility] Pulmonary Disease 11/23/21 documented as of this encounter
--- OUTSIDE RECORDS SUMMARY | 2025-04-02 07:35 | XMS_ITS | Encounter Summary ---
Author Organization [facility] Address [address] [place] [address] Care Team Providers Care Auditing Manager Name Role Phone Orlin Chambers MD Primary Care Provider Reason for Visit * Reason Comments Medication Refill Encounter Details Date Type Department Care Team (Late st Contact Info) Description 08/04/2019 Refill [facility] [address] [address] Orlin Chambers MD 100 [facility] Liam 203 [place], [place] [phone] Insomnia, unspecified type Social History Tobacco Use [...] type documented in this encounter Care Teams Auditing Manager Relationship Specialty Start Date End Date Orlin Chambers MD 100 [place] [address] PCP - General Family Medicine 01/29/19 08/16/23 Juma Harrington [facility] Pulmonary Disease 11/23/21 documented as of this encounter
--- OUTSIDE RECORDS SUMMARY | 2025-04-02 07:36 | XMS_ITS | Encounter Summary ---
Author Organization [facility] Address [address] [place] [address] Care Team Providers Care Sheeter Helper Name Role Phone Orlin Chambers MD Primary Care Provider [phone] Encounter Details Date Type Department Care Team (Late st Contact Info) Description 05/25/2019 Scanned Document [facility] Pulmonary and Critical Care- [address] [address] Kelly Bustillo MD [address] [place] [address] Social History Tobacco Use Types Packs/Day Years [...] on filedocumented in this encounter Care Teams Sheeter Helper Relationship Specialty Start Date End Date Orlin Chambers MD [address] [place] [address] PCP - General Family Medicine 01/29/19 08/16/23 Juma Harrington [facility] Pulmonary Disease 11/23/21 documented as of this encounter
--- OUTSIDE RECORDS SUMMARY | 2025-04-02 07:36 | XMS_ITS | Clinical Summary ---
Author Organization [facility] Address [address] [place] [address] Phone Care Team Providers Care Refrigerating Engineer Name Role Phone Jas Byrd Primary Care Provider Surgical History Surgery Date Site/Laterality Comments WISDOM TOOTH EXTRACTION PROCEDURE:WISDOM TOOTH EXTRACTION KNEE ARTHROSCOPY 06/03/2019 Left PROCEDURE:KNEE ARTHROSCOPY;COMMENT:Procedure: LEFT KNEE ARTHROSCOPY, PARTIAL MEDIAL MENISCECTOMY; Surgeon: David Pack MD; Location: [facility]; [facility]; Laterality: Left; Medical History Medical History Date [...] 2015 Zoster Vaccines (1 of 2) 2015 Depression Screening 07/16/2024 COVID-19 Vaccine (1 - 2023-2 5 season) 2025 Influenza Vaccine (#1) 2025 RSV Immunization Adult [...] age to complete this topic Care Teams Refrigerating Engineer Relationship Specialty Start Date End Date Jas Byrd PA [address] [place] [address] PCP - General Physician Service Desk Manager 01/13/25
--- OUTSIDE RECORDS SUMMARY | 2025-04-02 07:36 | XMS_ITS | Encounter Summary ---
Author Organization [facility] Address [address] [place] [address] Care Team Providers Care Wax Pumper Name Role Phone Orlin Chambers MD Primary Care Provider [phone] Encounter Details Date Type Department Care Team (Late st Contact Info) Description 10/18/[address] [facility] [place] 10 100 [facility] 203 [place] [address] Michael Sweeney MD [address] [place] [address] Social History Tobacco Use Types Packs/Day Years [...] filedocumented in this encounter Care Teams Wax Pumper Relationship Specialty Start Date End Date Orlin Chambers MD [address] [address] PCP - General Family Medicine 01/29/19 08/16/23 Juma Harrington [facility] Pulmonary Disease 11/23/21 documented as of this encounter
--- OUTSIDE RECORDS SUMMARY | 2025-04-02 07:36 | XMS_ITS | Encounter Summary ---
Author Organization [facility] Address [address] [place] [address] Care Team Providers Care Cementing Machine Operator Name Role Phone Orlin Chambers MD Primary Care Provider [phone] Encounter Details Date Type Department Care Team (Late st Contact Info) Description 09/08/2020 Scanned Document [facility] [address] [place] [id number] Provider, External, [address] [place] [id number] Social History Tobacco Use Types Packs/Day Years [...] on filedocumented in this encounter Care Teams Cementing Machine Operator Relationship Specialty Start Date End Date Orlin Chambers MD [address] [place] [address] PCP - General Family Medicine 01/29/19 08/16/23 Juma Harrington [facility] Pulmonary Disease 11/23/21 documented as of this encounter
--- OUTSIDE RECORDS SUMMARY | 2025-04-02 07:36 | XMS_ITS | Encounter Summary ---
Author Organization [facility] Address [address] [place] [address] Care Team Providers Care Metal Base Blocker Name Role Phone Orlin Chambers MD Primary Care Provider Encounter Details Date Type Department Care Team (Late st Contact Info) Description 08/24/[address] [facility] [address] [place] [id number] Provider, External, [address] [place] [id number] Social History Tobacco Use Types Packs/Day Years [...] filedocumented in this encounter Care Teams Metal Base Blocker Relationship Specialty Start Date End Date Orlin Chambers MD [address] [place] [address] PCP - General Family Medicine 01/29/19 08/16/23 Juma Harrington [facility] Pulmonary Disease 11/23/21 documented as of this encounter
--- OUTSIDE RECORDS SUMMARY | 2025-04-02 07:36 | XMS_ITS | Encounter Summary ---
Author Organization [facility] Address [address] [place] [address] Care Team Providers Care Maintenance Construction Helper Name Role Phone Orlin Chambers MD Primary Care Provider Encounter Details Date Type Department Care Team (Late st Contact Info) Description 11/01/2020 Scanned Document [facility] ORTHO SURGERY SCAN Orthopedic Surgery, Scan [...] filedocumented in this encounter Care Teams Maintenance Construction Helper Relationship Specialty Start Date End Date Orlin Chambers MD [address] [place] [id number] PCP - General Family Medicine 01/29/19 08/16/23 Juma Harrington [facility] Pulmonary Disease 11/23/21 documented as of this encounter
[2025-04-02 08:39] LABS: Hematocrit 39.5 % (42.0-52.0); Hemoglobin 13.3 g/dl (14.0-18.0); Mean Corpuscular HGB Conc 33.7 g/dl (31.0-36.0); Mean Corpuscular Hemoglobin 28.4 pg (27.0-33.0); Mean Corpuscular Volume 84.2 fL (80.0-98.0); NRBC Abs Auto 0.000 X10*3/uL (0.0-0.012); NRBC Pct Auto 0.0 /100WBC (0.0-0.2); Platelet Count 182 X10*3/uL (160-400); Red Blood Count 4.69 X10*6/uL (4.60-5.80); White Blood Count 6.8 X10*3/uL (4.8-10.8)
[2025-04-02 09:20] LABS: Alanine Aminotransferase 32 U/L (0-40); Albumin Level 4.6 g/dL (3.5-5.0); Alkaline Phosphatase 72 U/L (39-117); Anion Gap 10 (12-20); Aspartate Amino Transferase 27 U/L (5-37); Blood Urea Nitrogen 36 mg/dL (9-16); Calcium 9.5 mg/dL (8.4-10.2); Carbon Dioxide 23 mmol/L (22-29); Chloride 109 mmol/L (96-108); Cholesterol 175 mg/dL (<200); Estimated Glomerular Filt Rate > 60; HDL Cholesterol 52 mg/dL (>40); Potassium 3.9 mmol/L (3.3-5.1); Sodium 138 mmol/L (135-145); Total Protein 7.2 g/dL (6.5-8.0); Triglycerides 64 mg/dL (<150)
[2025-04-02 09:27] LABS: Hemoglobin A1C 128.0736 umol/L; Total Hemoglobin (HGBA1C) 3445.4599 umol/L
== END 2025-04-02 07:33 | disposition home or self-care (01) ==
LOC: HO.LAB 07:32
PROVIDERS: PCP Physician Assistant; Visit Provider Physician Assistant
DX: I10 Essential (primary) hypertension (principal); E11.65 Type 2 diabetes mellitus with hyperglycemia; E78.2 Mixed hyperlipidemia
CPT/HCPCS: 36415; 80053; 80061; 83036; 85027

== ENCOUNTER 2025-04-08 08:14 | Outpatient (AMB) | payer OTHER, SELFPAY ==
[2025-04-08 08:23] VITALS: BP 122/68; PULSE 69; O2SAT 98; BMI 28.8
--- NOTE | 2025-04-08 08:23 | MHC.PC.OV ---
Vital Signs 04/08/25 08:23 Height 5 ft 7 in Weight 184 lb BMI 28.8 BP 122/68 Blood Pressure Location Lt brachial Position Sitting Pulse 69 Pulse Source Pulse Oximeter Pulse Oximetry (%) 98 Oxygen Delivery Method Room Air Intake Visit Reasons: 3mth f/u Allergies No Known Allergies (No Known Allergies*) Allergy (Verified 04/08/25 08:32) Medication List - Last Reconciled 04/08/25 by Jas Byrd PA-C atorvastatin (Lipitor) 20 mg PO DAILY 90 days chlorthalidone 25 mg PO BEDTIME 90 days Held on 04/10/24. Instructions: Doctor's Order clonazepam 0.5 mg PO DAILY 14 days CPAP (CPAP Machine/Device) As directed hydrochlorothiazide 12.5 mg PO DAILY 90 days hydroxyzine HCl 25 mg PO BEDTIME 30 days lorazepam 0.5 mg PO BID 30 days Held on 10/16/24. Instructions: Doctor's Order losartan 50 mg PO BEDTIME metformin 500 mg PO DAILY sildenafil 50 mg PO DAILY PRN tirzepatide (Mounjaro) 5 mg (0.5 mL) subcut QWEEK 4 weeks trazodone 50 mg PO BEDTIME 90 days Tobacco use date assessed: 12/31/24 Dental Screening Dental Screen Date: 12/31/24 HPI 3mth f/u HPI Details Patient is a 60-year-old male here today for a follow-up visit Patient has a past medical history significant for hypertension, obesity, anxiety hyperlipidemia, diverticulosis, ТАТЬЯНА type 2 diabetes. Concern--> The patient reports muscle cramps, particularly in the ankles, which may be related to dehydration or the use of chlorthalidone. He experiences these cramps twice a night, causing significant discomfort and sleep disturbance. .. Anxiety: Has drastically reduce the amount of lorazepam using. Has tried buspirone 5 mg b.i.d. though had side effect of sleeping disturbance. He has transitioned to clonazepam to which he uses and feels his anxiety is much better, still having trouble sleeping which clonazepam does help him sleep. He plans on weaning off of clonazepam as well. .. Type 2 diabetes: Patient continues on metformin 500 b.i.d.. Most recently A1c significantly improved now 5.7. Patient has lost significant amount of weight since changing his GLP 1 to Mounjaro. BMI today at 28. PLAN: Will discontinue metformin and continue on 5 mg GLP1 weekly .. Hypertension: Patient's blood pressure acceptable today in office. Continues on losartan 50 mg daily. He has been making lifestyle modifications has been able to lose weight. He continues with hydrochlorothiazide and losartan 50 mg. Has followed up with Nephrology about his elevated BUN. PLAN: Will discontinue thiazide due to his significant weight loss and continue monitoring blood pressure .. Anemia of chronic disease: For anemia of chronic disease, monitoring of hemoglobin levels will continue, and dietary adjustments may be considered to address potential deficiencies contributing to easy bruising. .. BMI 28 (history of class 2 obesity): Has lost weight a significant amount of weight since transitioning to [place]. He is not on a vegetarian diet anymore. He does understand he needs to work on lifestyle modifications to reduce his weight. .. History of diverticulitis: The patient will be provided with a prescription for antibiotics to manage potential future diverticulitis attacks, reducing the need for emergency room visits Laboratory Tests 03/02/23 09/20/23 09/20/23 05:06 09:05 09:19 RBC Hgb 12.8 L BUN 26 H Creatinine 1.03 Random Glucose Fasting Glucose Hgb A1c (Clinic) Hemoglobin A1c % Triglycerides LDL Cholesterol, C alc Urine Microalbumin 150.0 03/10/24 04/10/24 04/10/24 13:31 08:44 10:08 RBC Hgb BUN 36 H 38 H Creatinine 1.49 H 1.43 H Random Glucose Fasting Glucose Hgb A1c (Clinic) 7.2 H Hemoglobin A1c % Triglycerides LDL Cholesterol, C alc Urine Microalbumin 09/12/24 10/27/24 12/30/24 08:57 08:19 07:01 RBC Hgb 13.8 L BUN 33 H Creatinine 1.19 1.34 1.41 H Random Glucose 126 H Fasting Glucose 129 H Hgb A1c (Clinic) Hemoglobin A1c % Triglycerides 253 H LDL Cholesterol, C alc 96 Urine Microalbumin 12/31/24 03/06/25 04/02/25 08:18 01:55 07:45 RBC 4.69 Hgb 13.3 L BUN 36 H Creatinine 1.19 1.14 Random Glucose Fasting Glucose 101 H Hgb A1c (Clinic) 7.6 H Hemoglobin A1c % 5.6 Triglycerides LDL Cholesterol, C alc 111 H Urine Microalbumin [facility] Medical History Lower extremity edema Dyspnea ТАТЬЯНА (obstructive sleep apnea) Pulmonary nodules Obese Personal history of nicotine dependence Erectile dysfunction HLD (hyperlipidemia) Type 2 diabetes mellitus HTN (hypertension) Surgical History History of repair of right rotator cuff History of left knee surgery History of colonoscopy Family History Mother Lung cancer Father Diabetes Bladder cancer Heart attack Brother Hypertension Diabetes Maternal Grandmother Hypertension Arthritis Maternal Aunt Family history of malignant neoplasm of female breast Social History Household Members: Family Housing: House Do you presently have visiting nurse or other home services: No Alcohol intake: never Patient Tobacco Use Status: Former Tobacco user Tobacco use type: Cigarette Years Smoked: (onset 16yo, 1.5ppd x 35yrs, 50pyh, quit 2015) e-Cigarette/Vaping Use: Never Used Second Hand Smoke Exposure: No service: No Current occupational status: employed Cognitive needs: No Hearing needs: No Vision needs: Yes (Reading glasses) Questionnaire Thrive Questionnaire Date Thrive assessed: 12/31/24 I am a: Patient What is your living situation today?: I have a steady place to live Within the past 12 months, did the food you bought not last and you didn't have the money to get more?: Never true Within the past 12 months, did you worry whether your food would run out before you got money to buy more?: Never true Do you have trouble paying for medicines?: No Do you have trouble getting transportation to medical appointments?: No Do you have trouble paying your heating and electricity bill?: No Do you have trouble taking care of your child, family member or friend?: No Do you have trouble with day-to-day activities such as bathing, preparing meals, shopping, managing finances, etc.?: No Are you currently unemployed and looking for a job?: No Are you interested in more education?: No Please select the resources that you would like help with: None Currently or been in a relationship where the following occur: I choose not to answer THRIVE Score: 0 AUDIT C Alcohol Use Questionnaire (AUDIT-C) 1. How often do you have a drink containing alcohol?: Monthly or less 2. How many drinks containing alcohol do you have on a typical day when you are drinking?: 1 or 2 3. How often do you have six or more drinks on one occasion?: Never Total Score: 1 ELIJAH-7 AMB Questionnaire ELIJAH-7 Date ELIJAH - 7 assessed: 12/31/24 Source: Developed by Drs. Hoang Sheffield, Samantha Barreto, Ben Niño and colleagues, with an educational salomon from [employer]. Review of Systems Const Denies headache(s) Eyes Denies loss of vision ENT Denies vertigo, Denies dizziness, Denies headache(s) and Denies sore throat Card Denies chest pain, Denies leg edema and Denies lightheadedness Resp Denies cough, Denies hemoptysis and Denies wheezing GI Denies abdominal pain, Denies melena, Denies constipation, Denies diarrhea and Denies vomiting Denies dysuria, Denies urinary frequency and Denies urinary urgency Musc Denies arthralgias, Denies joint swelling, Denies numbness and Denies tingling Neuro Denies Abnormal speech present, Denies behavioral changes, Denies vertigo, Denies dizziness, Denies headache(s), Denies loss of vision, Denies memory loss, Denies numbness and Denies tingling Psych Denies anxiety, Denies behavioral changes, Denies depression, Denies memory loss and Denies panic attacks Awais/Lymph Denies easy bleeding and Denies easy bruising Aller/Immun Denies wheezing Physical exam (Primary Care) Vital Signs: Last Vital Signs Pulse 69 04/08/25 08:23 BP 122/68 04/08/25 08:23 Pulse Ox 98 04/08/25 08:23 Oxygen Delivery Method Room Air 04/08/25 08:23 BMI result Body Mass Index 28.8 Tobacco/Smoking Status: Tobacco use Status Tobacco use date assessed 12/31/24 04/08/25 08:29 Patient Tobacco Use Status Former Tobacco user 04/08/25 08:29 Tobacco use type Cigarette 04/08/25 08:29 e-Cigarette/Vaping Use Never Used 04/08/25 08:29 Thrive Assessment: Date of Thrive Assessment Date Thrive assessed 12/31/24 04/08/25 08:29 Currently or been in a relationship where the following occur: I choose not to answer Const General: healthy appearing, no acute distress, alert and awake Nutritional Appearance: well nourished Orientation/consciousness: oriented to person, oriented to place and oriented to time HENMT Ears: TM's normal bilaterally General nose exam: Normal nasal mucous membranes and turbinates present Eyes Conjunctivae: conjunctivae normal Sclerae: sclerae normal Pupils: Equal, round and reactive pupils present Neck Neck: Yes no lymphadenopathy and Yes no JVD Thyroid: Thyroid normal Carotids: no bruits Resp Effort & Inspection: normal respiratory effort and not tachypneic Auscultation: no crackles, no rales, no rhonchi and no wheezes Cardio Rate: regular rate Rhythm: regular rhythm Heart sounds: no murmurs and normal S1 and S2 GI Palpation (GI): Soft to palpation, nontender, no hepatomegaly and no splenomegaly Auscultation: normal bowel sounds Skin General skin exam: no rashes or lesions noted and dry skin Neuro General: oriented to person, oriented to place and oriented to time Cranial nerves: Yes Equal, round and reactive pupils present Speech: No Abnormal speech present Gait exam (Neuro): Normal gait present Motor exam (neuro): no tremor noted Extrem Right upper extremity: full ROM Left upper extremity: full ROM Right lower extremity: full ROM; no edema Left lower extremity: full ROM; no edema Psych Mental Status: mental status grossly normal Speech and movement: Normal speech and movement present Affect: normal affect Attitude: cooperative Thought process: Normal thought process present Coding Level of Care Code Est Pt Level 4 (08928) Diagnoses Type 2 diabetes mellitus with hyperglycemia, without long-term current use of insulin E11.65 Diabetes mellitus complication status: with hyperglycemia Diabetes mellitus retirement insulin use: without traveling freight agent use Mixed hyperlipidemia E78.2 Hyperlipidemia type: mixed hyperlipidemia Primary hypertension I10 Hypertension type: primary hypertension ELIJAH (generalized anxiety disorder) F41.1 Colitis K52.9 Acute bilateral ankle pain M25.571; M25.572 Chronicity: acute Assessment & Plan Assessment & Plan (1) Type 2 diabetes mellitus: Code(s): E11.9 - Type 2 diabetes mellitus without complications Category: Medical Qualifiers: Diabetes mellitus complication status: with hyperglycemia Diabetes mellitus retirement insulin use: without traveling freight agent use Qualified Code(s): E11.65 - Type 2 diabetes mellitus with hyperglycemia Plan: Patient's type 2 diabetes now well controlled with an A1c of 5.6. He continues on Mounjaro and daily metformin. Will discontinue metformin as his glycemic control has been much better since he has been on a keto diet.. Goal A1c is to remain below 7.0 (2) HLD (hyperlipidemia): Code(s): E78.5 - Hyperlipidemia, unspecified Category: Medical Qualifiers: Hyperlipidemia type: mixed hyperlipidemia Qualified Code(s): E78.2 - Mixed hyperlipidemia Plan: Most recent lipid panel showing excellent control of her total cholesterol . Patient's LDL slightly elevated at 111 though this could be related to his keto diet.. He will continue working on lifestyle and dietary modifications. Goal LDL to be below 100 (3) HTN (hypertension): Code(s): I10 - Essential (primary) hypertension Category: Medical Qualifiers: Hypertension type: primary hypertension Qualified Code(s): I10 - Essential (primary) hypertension Plan: Patient's blood pressure acceptable today in office. Will hold off on his HCTZ for now and he will continue monitoring his blood pressure Due to his chronic elevated BUN and has followed up with a bobbin drier whom will continue to monitor. Goal blood pressures to remain below 140/90 (4) ELIJAH (generalized anxiety disorder): Code(s): F41.1 - Generalized anxiety disorder Category: Medical Plan: Has changed has been so that has been to a longer-acting form of clonazepam and feels his anxiety has a bit better. Still having sleeping issues in still use clonazepam on nearly a daily basis. We did discuss the habit-forming nature clonazepam/benzodiazepine and does understand. He would like to wean his dose of clonazepam over some time. (5) Colitis: Code(s): K52.9 - Noninfective gastroenteritis and colitis, unspecified Category: Medical Plan: Patient has a history of colitis flares, did recently have a flare requiring antibiotics. Will supply patient with an antibiotic to hold onto in case of a another colitis flare. (6) Bilateral ankle pain: Code(s): M25.571 - Pain in right ankle and joints of right foot; M25.572 - Pain in left ankle and joints of left foot Category: Medical Qualifiers: Chronicity: acute Qualified Code(s): M25.571 - Pain in right ankle and joints of right foot; M25.572 - Pain in left ankle and joints of left foot Plan: For muscle cramps, the patient is advised to ensure adequate hydration and consider magnesium supplementation, while monitoring the need for chlorthalidone. Orders: Orders Microalbumin, Random (w Creat) 04/08/25 R80.9 - Proteinuria, unspecified Prostate Specific Antigen Scr 04/08/25 E78.2 - Mixed hyperlipidemia, Z12.5 - Encounter for screening for malignant neoplasm of prostate Vitamin D 25-OH Total 04/08/25 D64.9 - Anemia, unspecified Comprehensive [place]. Panel Fast 04/08/25 E11.65 - Type 2 diabetes mellitus with hyperglycemia Complete Blood Count no Diff 04/08/25 E11.65 - Type 2 diabetes mellitus with hyperglycemia Lipid Panel 04/08/25 E78.2 - Mixed hyperlipidemia Medications: New ciprofloxacin HCl 500 mg PO BID 20 tabs 0RF 10 days K52.9 - Noninfective gastroenteritis and colitis, unspecified metronidazole 500 mg PO BID 20 tabs 0RF 10 days K52.9 - Noninfective gastroenteritis and colitis, unspecified Discontinued metformin Discontinued Reason: Doctor's Order 500 mg PO DAILY 90 tabs 0RF E11.65 - Type 2 diabetes mellitus with hyperglycemia
--- OUTSIDE RECORDS SUMMARY | 2025-04-08 08:53 | XMS_ITS | Encounter Summary ---
Author Organization [facility] Address [address] [place] [address] Care Team Providers Care Vice President [employer] Name Role Phone Orlin Chambers MD Primary Care Provider [phone] Encounter Details Date Type Department Care Team (Late st Contact Info) Description 10/06/2022 Scanned Document [facility] SURG[facility] SC[facility] [place] [address] [place] [address] Social History Tobacco Use Types Packs/Day Years [...] on filedocumented in this encounter Care Teams Vice President [employer] Relationship Specialty Start Date End Date Orlin Chambers MD [address] [place] [address] PCP - General Family Medicine 01/29/19 08/16/23 Juma Harrington [facility] Pulmonary Disease 11/23/21 documented as of this encounter
--- OUTSIDE RECORDS SUMMARY | 2025-04-08 08:53 | XMS_ITS | Encounter Summary ---
Author Organization [facility] Address [address] [place] [address] Care Team Providers Care Mechanical Engineering Teacher Name Role Phone Orlin Chambers MD Primary Care Provider [phone] Encounter Details Date Type Department Care Team (Late st Contact Info) Description 01/25/2023 Scanned Document [facility] ORTHO SURGERY SCAN [place] [address] [place] [address] Social History Tobacco Use Types Packs/Day Years [...] on filedocumented in this encounter Care Teams Mechanical Engineering Teacher Relationship Specialty Start Date End Date Orlin Chambers MD [address] [place] [id number] PCP - General Family Medicine 01/29/19 08/16/23 Juma Harrington [facility] Pulmonary Disease 11/23/21 documented as of this encounter
--- OUTSIDE RECORDS SUMMARY | 2025-04-08 08:53 | XMS_ITS | Clinical Summary ---
Author Organization Formerly [facility] Address [address] [place] [address] Care Team Providers Care Top Lift Nailer Name Role Phone Unavailable Primary Care Provider [...] Urine, Random (06/06/2022 8:55 AM EST) Pathologist [facility] Creatinine, Urine, Random 242 20 - 320 mg/dL [facility] Microalbumin, Urine, Random 12.1 See Note: mg/dL [facility] Comment: Reference Range: Reference Range Not established Microalbumin/Creat inine Ratio 50(H) <30 mcg/mg creat [facility] Comment: The ADA defines abnormalities in [...] URINE ORDERABLES Final Result Performing Organization Address [facility] Co de Phone Number [facility] [address] [place] [address], [place] [address] * (ABNORMAL) Hemoglobin A1c (06/06/2022 8:55 AM EST) Hemoglobin A1C 6.5(H) <5.7 % of total Hgb [facility] Comment: For someone without known diabetes, [...] MD LAB BLOOD ORDERABLES Final Re sult [facility] [address], [place] [address] * (ABNORMAL) Basic Metabolic Panel (06/06/2022 8:55 AM EST) Glucose 129(H) 65 - 99 mg/dL [facility] Comment: Fasting reference interval For someone without known diabetes, a glucose value >125 mg/dL indicates that they may have diabetes and this should be confirmed with a follow-up test. Blood Urea Nitrogen (BUN) 33(H) 7 - 25 mg/dL [facility] Creatinine 1.49(H) 0.70 - 1.30 mg/dL [facility] Creatinine w/ eGFR 54(L) > OR = 60 mL/min/1.7 3m2 [facility] Comment: The eGFR is based on the CKD-EPI 2020 equation. To calculate the new eGFR from a previous Creatinine or Cystatin C result, go to https://www.kidney.org/professionals/ kdoqi/gfr%5Fcalculator BUN/Creatinine Ratio 22 6 - 22 (calc) [facility] Sodium 139 135 - 146 mmol/L [facility] Potassium 4.1 3.5 - 5.3 mmol/L [facility] Chloride 102 98 - 110 mmol/L [facility] CO2 27 20 - 32 mmol/L [facility] Calcium 9.5 8.6 - 10.3 mg/dL [facility] Blood specimen (specimen) 06/06/2022 8:55 AM EST 06/06/2022 8:55 AM EST Narrative [facility] - 06/07/2022 4:59 PM EST FASTING:YES FASTING: YES us Orlin Chambers MD LAB BLOOD ORDERABLES Final Re sult [facility] [address] [place] [address], [place] [address] * (ABNORMAL) Lipid Panel [facility] LDL (12/07/2021 8:13 AM EDT) Cholesterol, Total 191 <200 mg/dL [facility] Cholesterol, HDL 48 > OR = 40 mg/dL [facility] Triglycerides 237(H) <150 mg/dL [facility] Comment: If a non-fasting specimen was collected, consider repeat triglyceride testing on a fasting specimen if clinically indicated. Chris et al. J. of Clin. Lipidol. 2015;9:129-169. LDL Cholesterol 107(H) mg/dL (calc) [facility] Comment: Reference range: <100 Desirable range <100 mg/dL for primary prevention; <70 mg/dL for patients with CHD or diabetic patients with > or = 2 CHD risk factors. LDL-C is now calculated using the Michael-Rosario calculation, which is a validated novel method providing better accuracy than the Friedewald equation in the estimation of LDL-C. Michael SS et al. ELSY. 2013;310(19): 1766-7890 (http://education.Nimbic (formerly Physware)/faq/PBE404) Cholesterol/HDL Ratio 4.0 <5.0 (calc) [facility] Non HDL Chol. (LDL+VLDL) 143(H) <130 mg/dL (calc) [facility] Comment: For patients with diabetes plus 1 major ASCVD risk factor, treating to a non-HDL-C goal of <100 mg/dL (LDL-C of <70 mg/dL) is considered a therapeutic option. Blood specimen (specimen) 12/07/2021 8:13 AM EDT 12/07/2021 8:13 AM EDT Narrative [facility] - 12/08/2021 12:09 AM EDT FASTING:YES FASTING: YES us Orlin Chambers MD LAB BLOOD ORDERABLES Final Re sult [facility] [address], [place] [address] * CT Thorax w/o contrast (05/29/2019 9:23 [...] your patient to us, Travis Villarreal MD [id number] (Electronically Signed - 05/29/2019 09:23) Copy: ORLIN CHAMBERS DO [facility] 10 [address] [place] [address] PATIENT , Narrative 05/29/2019 9:23 AM EST EXAMINATION: CT CHEST WITHOUT CONTRAST CLINICAL INFORMATION: Left lower lobe pulmonary nodule. COMPARISON: No relevant prior studies are available for comparison. TECHNIQUE: Multidetector volumetric CT imaging of the chest was done. Axial MIP volume rendering provided. Sagittal and coronal reformatted images were obtained. DLP: 523.69 mGy-cm FINDINGS: GEOMAGNETICIAN: Unremarkable. LUNGS: There is a 3 mm [...] images were obtained. DLP: 523.69 mGy-cm FINDINGS: GEOMAGNETICIAN: Unremarkable. LUNGS: There is a 3 mm nodule medially within the right upper lobe(axial image 151/505). There is an adjacent 1-2 mm nodule (axial [id number]). There is an irregular 0.6 cm nodule [...] interval change. According to the UPDATED 2017 [facility] recommendations, the advised follow up imaging for [...] your patient to us, Travis Villarreal MD [id number] (Electronically Signed - 05/29/2019 09:23) Copy: ORLIN CHAMBERS DO [facility] 10 [address] [facility] [place] [address] PATIENT , Kelly Bustillo MD IMG CT ORDERABLES Final Result from Last 3 Months or Most Recently Relevant to Health Maintenance Insurance [employer] [place] MGD MEDICARE Care Teams Top Lift Nailer Relationship Specialty Start Date End Date Juma Harrington [facility] Pulmonary Disease 11/23/21
--- OUTSIDE RECORDS SUMMARY | 2025-04-08 08:53 | XMS_ITS | Encounter Summary ---
Author Organization [facility] Address [address] [place] [address] Care Team Providers Care Registered Travel Nurse Name Role Phone Orlin Chambers MD Primary Care Provider [phone] Reason for Visit * Reason Onset Date Comments Medication Refill 11/10/2022 Encounter Details Date Type Department Care Team (Late st Contact Info) Description 11/10/2022 Refill [facility] [address] [place] [address] [address] [place] [address] Orlin Chambers MD 100 [facility] [address] [place], [place] [phone] Insomnia, unspecified type Social History Tobacco Use [...] type documented in this encounter Care Teams Registered Travel Nurse Relationship Specialty Start Date End Date Orlin Chambers MD [address] [place] [address] PCP - General Family Medicine 01/29/19 08/16/23 Juma Harrington [facility] Pulmonary Disease 11/23/21 documented as of this encounter
--- OUTSIDE RECORDS SUMMARY | 2025-04-08 08:53 | XMS_ITS | Encounter Summary ---
Author Organization [facility] Address [address] [place] [address] Care Team Providers Care Scaling Machine Operator Name Role Phone Orlin Chambers MD Primary Care Provider [phone] Reason for Visit * Reason Comments Medication Refill Encounter Details Date Type Department Care Team (Late st Contact Info) Description 04/10/2023 Refill [facility] [address] [address] Orlin Chambers MD 100 [facility] [address] [place], [place] [id number] Insomnia, unspecified type Social History Tobacco Use [...] type documented in this encounter Care Teams Scaling Machine Operator Relationship Specialty Start Date End Date Orlin Chambers MD 100 [place] [address] PCP - General Family Medicine 01/29/19 08/16/23 Juma Harrington [facility] Pulmonary Disease 11/23/21 documented as of this encounter
--- OUTSIDE RECORDS SUMMARY | 2025-04-08 08:53 | XMS_ITS | Encounter Summary ---
Author Organization [facility] Address [address] [place] [address] Care Team Providers Care Crusher Feeder Name Role Phone Orlin Chambers MD Primary Care Provider [phone] Encounter Details Date Type Department Care Team (Late st Contact Info) Description 06/03/2019 Scanned Document [facility] [address] [address] Provider, Generic Social History Tobacco [...] on filedocumented in this encounter Care Teams Crusher Feeder Relationship Specialty Start Date End Date Orlin Chambers MD 100 [facility] [address] [place], [place] [phone] PCP - General Family Medicine 01/29/19 08/16/23 Juma Harrington [facility] Pulmonary Disease 11/23/21 documented as of this encounter
--- OUTSIDE RECORDS SUMMARY | 2025-04-08 08:53 | XMS_ITS | Encounter Summary ---
Author Organization [facility] Address [address] [place] [address] Care Team Providers Care Slitting Machine Operator Name Role Phone Orlin Chambers MD Primary Care Provider Reason for Visit * Reason Comments Medication Refill Encounter Details Date Type Department Care Team (Late st Contact Info) Description 02/01/2020 Refill [facility] 10 100 [facility] [address] [place] [address] Anayeli Del Rosario, PUBLIC RELATIONS DIRECTOR 100 [facility] [address] [place], [place] [phone] Anxiety Social History Tobacco Use Types Packs/Day [...] unspecified documented in this encounter Care Teams Slitting Machine Operator Relationship Specialty Start Date End Date Orlin Chambers MD 100 [place] [address] PCP - General Family Medicine 01/29/19 08/16/23 Juma Harrington [facility] Pulmonary Disease 11/23/21 documented as of this encounter
--- OUTSIDE RECORDS SUMMARY | 2025-04-08 08:53 | XMS_ITS | Encounter Summary ---
Author Organization [facility] Address [address] [place] [address] Care Team Providers Care Criminal Justice Department Chair Name Role Phone Orlin Chambers MD Primary Care Provider [phone] Reason for Visit * Reason Comments Medication Refill Encounter Details Date Type Department Care Team (Late st Contact Info) Description 09/12/2019 Refill [facility] [address] [facility] [address] [place] [address] Anayeli Del Rosario, STRING CUTTER 100 [facility] [address] [place], [place] [phone] Anxiety Social History Tobacco Use Types Packs/Day [...] unspecified documented in this encounter Care Teams Criminal Justice Department Chair Relationship Specialty Start Date End Date Orlin Chambers MD 100 [place] [address] PCP - General Family Medicine 01/29/19 08/16/23 Juma Harrington [facility] Pulmonary Disease 11/23/21 documented as of this encounter
--- OUTSIDE RECORDS SUMMARY | 2025-04-08 08:53 | XMS_ITS | Clinical Summary ---
Author Organization [facility] Address [address] [place] [address] Care Team Providers Care Rawhide Bone Roller Name Role Phone Pcp, No MD Primary [...] age to complete this topic Care Teams Rawhide Bone Roller Relationship Specialty Start Date End Date PcpVonda MD [address] [place] [address] PCP - General Internal Medicine 02/21/21
--- OUTSIDE RECORDS SUMMARY | 2025-04-08 08:53 | XMS_ITS | Encounter Summary ---
Author Organization [facility] Address [address] [place] [address] Care Team Providers Care Pressure Tester Name Role Phone Orlin Chambers MD Primary Care Provider [phone] Encounter Details Date Type Department Care Team (Late st Contact Info) Description 02/27/2023 Scanned Document [facility] EMERGENCY MED SCAN Emergency Medicine, [...] on filedocumented in this encounter Care Teams Pressure Tester Relationship Specialty Start Date End Date Orlin Chambers MD [address] [place] [address] PCP - General Family Medicine 01/29/19 08/16/23 Juma Harrington [facility] Pulmonary Disease 11/23/21 documented as of this encounter
--- OUTSIDE RECORDS SUMMARY | 2025-04-08 08:53 | XMS_ITS | Encounter Summary ---
Author Organization [facility] Address [address] [place] [address] Care Team Providers Care Emergency Vehicle Technician Name Role Phone Orlin Chambers MD Primary Care Provider [phone] Encounter Details Date Type Department Care Team (Late st Contact Info) Description 08/29/2022 Scanned Document [facility] ORTHO SURGERY SCAN [place] [address] [place] [address] Social History Tobacco Use Types Packs/Day Years [...] on filedocumented in this encounter Care Teams Emergency Vehicle Technician Relationship Specialty Start Date End Date Orlin Chambers MD [address] [place] [address] PCP - General Family Medicine 01/29/19 08/16/23 Juma Harrington [facility] Pulmonary Disease 11/23/21 documented as of this encounter
--- OUTSIDE RECORDS SUMMARY | 2025-04-08 08:53 | XMS_ITS | Encounter Summary ---
Author Organization [facility] Address [address] [place] [address] Care Team Providers Care Organic Chemistry Teacher Name Role Phone Orlin Chambers MD Primary Care Provider [phone] Reason for Visit * Reason Comments Medication Refill Encounter Details Date Type Department Care Team (Late st Contact Info) Description 08/04/[address] [facility] [place] [address] [facility] [address] [place] [address] Anayeli Del Rosario, PUBLISHING EDITOR 100 [facility] Liam [address] [place], [place] [phone] Hyperlipidemia, unspecified hyperlipidemia type Social History Tobacco [...] type documented in this encounter Care Teams Organic Chemistry Teacher Relationship Specialty Start Date End Date Orlin Chambers MD 100 [place] [address] PCP - General Family Medicine 01/29/19 08/16/23 Juma Harrington [facility] Pulmonary Disease 11/23/21 documented as of this encounter
--- OUTSIDE RECORDS SUMMARY | 2025-04-08 08:53 | XMS_ITS | Encounter Summary ---
Author Organization [facility] Address [address] [place] [address] Care Team Providers Care Coordinate Measuring Machine Programmer Name Role Phone Unavailable Primary Care Provider Unavailabl e Encounter Details Date Type Department Care Team ([facility] st Contact Info) Description 11/05/2023 Scanned Document [facility] CARDIOLOGY SCAN Cardiology, Scan [...] on filedocumented in this encounter Care Teams Coordinate Measuring Machine Programmer Relationship Specialty Start Date End Date Juma Harrington [facility] Pulmonary Disease 11/23/21 documented as of this encounter
--- OUTSIDE RECORDS SUMMARY | 2025-04-08 08:53 | XMS_ITS | Continuity of Care Document ---
Author Organization [employer] Address [address] [facility] [address] [place] [address] Insurance Providers Payer Plan Claims Address Claims Phone Policy Number Group Number Relation Employer Guarantor Name Guarantor Guarantor Address Guarantor Phone [employer] [address] [employer] [address], [place] [id number] tel:[phone] [facility] [place] [address] [facility] [address], [place] [address] tel: [phone] [phone] [facility] [place] MED[place] RE [facility] [place] [address] [id number] Problems Condition ICD9 code ICD10 code SNOMED code Start Date End Date S tatus Encounter for screening for other metabolic disorders Z13.228 Results Test Result Date/Time Value / Unit Interp. Refere nme Range Comp. Metabolic Panel (14)[3 28024] Collected: 12/16/2024 03:10 PM Specimen Received: 12/16/2024 05:00 AM Source: [facility] Glucose [[id number]] 12/17/2024 07:06 AM 174 mg/dL H 70-99 mg/dL BUN [[id number]] 12/17/2024 07:05 AM 26 mg/dL H 6-2 4 mg/dL Creatinine [702552] 12/17/2024 07:07 AM 1.25 mg/dL 0.76-1.27 mg/dL eGFR [163802] 12/17/2024 07:07 AM 66 mL/min/1.73 >59 mL/min/1.73 BUN/Creatinine Ratio [216001] 12/17/2024 07:07 AM 21 H 9-20 Sodium [050370] 12/17/2024 07:09 AM 140 mmol/L 134-144 mmol/L Potassium [820773] 12/17/2024 07:10 AM 4.8 mmol/L 3.5-5.2 mmol/L Chloride [551926] 12/17/2024 07:09 AM 100 mmol/L 96-106 mmol/L Carbon Dioxide, Total [233724] 12/17/2024 07:05 AM 22 mmol/L 20-29 mmol/L Calcium [233081] 12/17/2024 07:05 AM 9.7 mg/dL 8.7-10.2 mg/dL Protein, Total [642433] 12/17/2024 07:07 AM 7.2 g/dL 6.0-8.5 g/dL Albumin [401824] 12/17/2024 07:04 AM 4.6 g/dL 3.8-4.9 g/dL Globulin, Total [744651] 12/17/2024 07:07 AM 2.6 g/dL 1.5-4.5 g/dL Bilirubin, Total [448910] 12/17/2024 07:05 AM 0.6 mg/dL 0.0-1.2 mg/dL Alkaline Phosphatase [477951] 12/17/2024 07:06 AM 95 IU/L 44-121 IU/L AST (SGOT) [223517] 12/17/2024 07:06 AM 19 IU/L 0-40 IU/L ALT (SGPT) [983690] 12/17/2024 07:05 AM 32 IU/L 0-44 IU/L Lipid Panel[743708] Collected: 12/16/2024 03:10 PM Specimen Received: 12/16/2024 05:00 AM Source: [facility] Cholesterol, Total [[id number]] 12/17/2024 07:10 AM 184 mg/dL 100-199 mg/d L Triglycerides [329106] 12/17/2024 07:12 AM 243 mg/dL H 0-149 mg/dL HDL Cholesterol [225969] 12/17/2024 07:15 AM 48 mg/dL >39 mg/dL VLDL Cholesterol Jose [407954] 12/17/2024 07:15 AM 41 mg/dL H 5-40 mg/dL LDL Chol Calc ([facility]) [532280] 12/17/2024 07:15 AM 95 mg/dL 0-99 mg/dL Albumin/Creatinine Ratio,Uri ne[940942] Collected: 12/16/2024 03:10 PM Specimen Received: 12/16/2024 05:00 AM Source: [facility] Creatinine, Urine [279493] 12/17/2024 07:02 PM 187.7 mg/dL Not Estab. m g/dL Albumin, Urine [059178] 12/17/2024 07:00 PM 145.3 ug/mL Not Estab. ug/mL Alb/Creat Ratio [623648] 12/17/2024 07:02 PM 77 mg/g creat H 0-29 mg/g creat Normal: 0 - 29 Moderately in creased: 30 - 300 Severely increased: >300 Hemoglobin A1c[311193] Collected: 12/16/2024 03:10 PM Specimen Received: 12/16/2024 05:00 AM Source: [facility] Hemoglobin A1c [[id number]] 12/17/2024 03:40 AM 8.1 % H 4.8-5.6 % . Prediabetes: 5.7 - 6.4 Di abetes: >6.4 Glycemic control for adults with diabetes: 7.0 Allergies, adverse reactions, alerts No known allergies and adverse reactions Medications No administered medications reported Vital Signs No vital signs reported Social History No smoking Hx information available
--- OUTSIDE RECORDS SUMMARY | 2025-04-08 08:53 | XMS_ITS | Encounter Summary ---
Author Organization [facility] Address [address] [place] [address] Care Team Providers Care Developer Analyst Name Role Phone Orlin Chambers MD Primary Care Provider [phone] Reason for Visit * Reason Comments Medication Refill Encounter Details Date Type Department Care Team (Late st Contact Info) Description 04/12/2023 Refill [facility] [address] [address] Orlin Chambers MD 100 [facility] [address] [place], [place] [phone] Insomnia, unspecified type Social History Tobacco Use [...] type documented in this encounter Care Teams Developer Analyst Relationship Specialty Start Date End Date Orlin Chambers MD 100 [place] [address] PCP - General Family Medicine 01/29/19 08/16/23 Juma Harrington [facility] Pulmonary Disease 11/23/21 documented as of this encounter
--- OUTSIDE RECORDS SUMMARY | 2025-04-08 08:53 | XMS_ITS | Encounter Summary ---
Author Organization [facility] Address [address] [place] [address] Care Team Providers Care Hand Knitter Name Role Phone Orlin Chambers MD Primary Care Provider [phone] Encounter Details Date Type Department Care Team (Late st Contact Info) Description 11/01/2020 Scanned Document [facility] ORTHO SURGERY SCAN Orthopedic Surgery, [...] on filedocumented in this encounter Care Teams Hand Knitter Relationship Specialty Start Date End Date Orlin Chambers MD [address] [place] [address] PCP - General Family Medicine 01/29/19 08/16/23 Juma Harrington [facility] Pulmonary Disease 11/23/21 documented as of this encounter
--- OUTSIDE RECORDS SUMMARY | 2025-04-08 08:53 | XMS_ITS | Clinical Summary ---
Author Organization [address] [facility] Address [address] [place] [address] Phone Care Team Providers Care Bi Report Developer Name Role Phone Jas Byrd Primary Care Provider Surgical History Surgery Date Site/Laterality Comments WISDOM TOOTH EXTRACTION PROCEDURE:WISDOM TOOTH EXTRACTION KNEE ARTHROSCOPY 06/03/2019 Left PROCEDURE:KNEE ARTHROSCOPY;COMMENT:Procedure: LEFT KNEE ARTHROSCOPY, PARTIAL MEDIAL MENISCECTOMY; Surgeon: David Pack MD; [facility] AM[facility]; [facility]; Laterality: Left; Medical History Medical History Date [...] age to complete this topic Care Teams Bi Report Developer Relationship Specialty Start Date End Date Jas Byrd PA [address] [place] [address] PCP - General Physician Rail Splitter 01/13/25
--- OUTSIDE RECORDS SUMMARY | 2025-04-08 08:53 | XMS_ITS | Encounter Summary ---
Author Organization [facility] Address [address] [place] [address] Care Team Providers Care Chief Safety Officer Name Role Phone Orlin Chambers MD Primary Care Provider [phone] Encounter Details Date Type Department Care Team (Late st Contact Info) Description 12/06/2022 Scanned Document [facility] [place] [address] [address] Cardiology, Scan Social History Tobacco [...] filedocumented in this encounter Care Teams Chief Safety Officer Relationship Specialty Start Date End Date Orlin Chambers MD 100 [place] [address] PCP - General Family Medicine 01/29/19 08/16/23 Juma Harrington [facility] Pulmonary Disease 11/23/21 documented as of this encounter
--- OUTSIDE RECORDS SUMMARY | 2025-04-08 08:53 | XMS_ITS | Encounter Summary ---
Author Organization [facility] Address [address] [place] [address] Care Team Providers Care Renderer Name Role Phone Orlin Chabmers MD Primary Care Provider Encounter Details Date Type Department Care Team (Late st Contact Info) Description 08/24/2020 Scanned Document [facility] [address] [place] [address] Provider, External, [address] [place] [address] Social History Tobacco Use Types Packs/Day Years [...] on filedocumented in this encounter Care Teams Renderer Relationship Specialty Start Date End Date Orlin Chambers MD 100 [place] [address] PCP - General Family Medicine 01/29/19 08/16/23 Juma Harrington [facility] Pulmonary Disease 11/23/21 documented as of this encounter
--- OUTSIDE RECORDS SUMMARY | 2025-04-08 08:53 | XMS_ITS | Encounter Summary ---
Author Organization [facility] Address [address] [place] [address] Care Team Providers Care Top Frame Fitter Name Role Phone Orlin Chambers MD Primary Care Provider [phone] Encounter Details Date Type Department Care Team (Late st Contact Info) Description 01/30/2023 Scanned Document [facility] ORTHO SURGERY SCAN [place] [address] [place] [address] Social History Tobacco Use Types Packs/Day Years [...] on filedocumented in this encounter Care Teams Top Frame Fitter Relationship Specialty Start Date End Date Orlin Chambers MD [address] [place] [address] PCP - General Family Medicine 01/29/19 08/16/23 Juma Harrington [facility] Pulmonary Disease 11/23/21 documented as of this encounter
--- OUTSIDE RECORDS SUMMARY | 2025-04-08 08:53 | XMS_ITS | Clinical Summary ---
Author Organization [facility] Address [address] [place] [address] Care Team Providers Care Digital Proofing And Platemaker Name Role Phone Orlin Chambers Primary Care Provider [phone] Allergies No known active allergies Medications Medication [...] age to complete this topic Care Teams Digital Proofing And Platemaker Relationship Specialty Start Date End Date Orlin Chambers DO PCP - General Family Medicine 06/17/18
--- OUTSIDE RECORDS SUMMARY | 2025-04-08 08:53 | XMS_ITS | Encounter Summary ---
Author Organization [facility] Address [address] [place] [address] Care Team Providers Care Repulping Supervisor Name Role Phone Orlin Chambers MD Primary Care Provider [phone] Encounter Details Date Type Department Care Team (Late st Contact Info) Description 02/27/2023 Scanned Document [facility] EMERGENCY MED SCAN Emergency Medicine, Scan [...] on filedocumented in this encounter Care Teams Repulping Supervisor Relationship Specialty Start Date End Date Orlin Chambers MD [address] [place] [address] PCP - General Family Medicine 01/29/19 08/16/23 Juma Harrington [facility] Pulmonary Disease 11/23/21 documented as of this encounter
--- OUTSIDE RECORDS SUMMARY | 2025-04-08 08:53 | XMS_ITS | Encounter Summary ---
Author Organization [facility] Address [address] [place] [address] Care Team Providers Care Embroidery Operator Name Role Phone Orlin Chambers MD Primary Care Provider [phone] Reason for Visit * Reason Comments Medication Refill Encounter Details Date Type Department Care Team (Late st Contact Info) Description 11/04/2019 Refill [facility] 10 100 [facility] [address] [place] [address] Anayeli Del Rosario, CARDING UTILITY TENDER 100 [facility] [address] [place], [place] [address] Anxiety Social History Tobacco Use Types Packs/Day [...] unspecified documented in this encounter Care Teams Embroidery Operator Relationship Specialty Start Date End Date Orlin Chambers MD [address] [address] PCP - General Family Medicine 01/29/19 08/16/23 Juma Harrington [facility] Pulmonary Disease 11/23/21 documented as of this encounter
--- OUTSIDE RECORDS SUMMARY | 2025-04-08 08:53 | XMS_ITS | Encounter Summary ---
Author Organization [facility] Address [address] [place] [address] Care Team Providers Care Glass Cutting Machine Operator Name Role Phone Orlin Chambers MD Primary Care Provider [phone] Reason for Visit * Reason Onset Date Comments Medication Refill 04/12/2023 Encounter Details Date Type Department Care Team (Late st Contact Info) Description 04/12/2023 Refill [facility] [address] [place] [address] 203 [place] [address] Orlin Chambers MD 100 [facility] [address] 203 [place], [place] [phone] Insomnia, unspecified type Social History Tobacco Use [...] type documented in this encounter Care Teams Glass Cutting Machine Operator Relationship Specialty Start Date End Date Orlin Chambers MD 100 [place] [address] PCP - General Family Medicine 01/29/19 08/16/23 Juma Harrington [facility] Pulmonary Disease 11/23/21 documented as of this encounter
--- OUTSIDE RECORDS SUMMARY | 2025-04-08 08:53 | XMS_ITS | Encounter Summary ---
Author Organization [facility] Address [address] [place] [address] Care Team Providers Care Curriculum Facilitator Name Role Phone Orlin Chambers MD Primary Care Provider [phone] Reason for Visit * Reason Comments Medication Refill Encounter Details Date Type Department Care Team (Late st Contact Info) Description 08/04/2019 Refill [facility] [address] [address] Orlin Chambers MD 100 [facility] Liam 203 [place], [place] [id number] Insomnia, unspecified type Social History Tobacco Use [...] type documented in this encounter Care Teams Curriculum Facilitator Relationship Specialty Start Date End Date Orlin Chambers MD 100 [place] [address] PCP - General Family Medicine 01/29/19 08/16/23 Juma Harrington [facility] Pulmonary Disease 11/23/21 documented as of this encounter
--- OUTSIDE RECORDS SUMMARY | 2025-04-08 08:53 | XMS_ITS | Encounter Summary ---
Author Organization [facility] Address [address] [place] [address] Care Team Providers Care Office Administrative Assistant Name Role Phone Orlin Chambers MD Primary Care Provider Encounter Details Date Type Department Care Team (Late st Contact Info) Description 09/08/2020 Scanned Document [facility] [address] [place] [address] Provider, External, [address] [place] [address] Social History Tobacco Use Types Packs/Day Years [...] on filedocumented in this encounter Care Teams Office Administrative Assistant Relationship Specialty Start Date End Date Orlin Chambers MD 100 [place] [address] PCP - General Family Medicine 01/29/19 08/16/23 Juma Harrington [facility] Pulmonary Disease 11/23/21 documented as of this encounter
--- OUTSIDE RECORDS SUMMARY | 2025-04-08 08:53 | XMS_ITS | Encounter Summary ---
Author Organization [facility] Address [address] [place] [address] Care Team Providers Care Visual Basic Programmer Name Role Phone Orlin Chambers MD Primary Care Provider [phone] Reason for Visit * Reason Onset Date Comments Medication Refill 11/13/2022 Encounter Details Date Type Department Care Team (Late st Contact Info) Description 11/13/2022 Refill [facility] [address] [place] [address] 203 [place] [address] Orlin Chambers MD 100 [facility] Liam 203 [place], [place] [phone] Insomnia, unspecified type Social History Tobacco Use [...] type documented in this encounter Care Teams Visual Basic Programmer Relationship Specialty Start Date End Date Orlin Chambers MD 100 [place] [address] PCP - General Family Medicine 01/29/19 08/16/23 Juma Harrington [facility] Pulmonary Disease 11/23/21 documented as of this encounter
--- OUTSIDE RECORDS SUMMARY | 2025-04-08 08:53 | XMS_ITS | Encounter Summary ---
Author Organization [facility] Address [address] [place] [address] Care Team Providers Care Commercial Drone Software Developer Name Role Phone Orlin Chambers MD Primary Care Provider [phone] Reason for Visit * Reason Comments Medication Refill Encounter Details Date Type Department Care Team (Late st Contact Info) Description 10/09/2022 Refill [facility] 10 100 [facility] [address] [place] [address] Anayeli Del Rosario APRN 100 [facility] Liam 203 [place], [place] [phone] Anxiety Social History Tobacco Use Types Packs/Day [...] unspecified documented in this encounter Care Teams Commercial Drone Software Developer Relationship Specialty Start Date End Date Orlin Chambers MD 100 [place] [address] PCP - General Family Medicine 01/29/19 08/16/23 Juma Harrington [facility] Pulmonary Disease 11/23/21 documented as of this encounter
--- OUTSIDE RECORDS SUMMARY | 2025-04-08 08:53 | XMS_ITS | Encounter Summary ---
Author Organization [facility] Address [address] [place] [address] Care Team Providers Care Heel Turner Name Role Phone Orlin Chambers MD Primary Care Provider [phone] Encounter Details Date Type Department Care Team (Late st Contact Info) Description 02/27/2023 Scanned Document [facility] EMERGENCY MED SCAN Emergency Medicine, [...] on filedocumented in this encounter Care Teams Heel Turner Relationship Specialty Start Date End Date Orlin Chambers MD [address] [place] [address] PCP - General Family Medicine 01/29/19 08/16/23 Juma Harrington [facility] Pulmonary Disease 11/23/21 documented as of this encounter
--- OUTSIDE RECORDS SUMMARY | 2025-04-08 08:53 | XMS_ITS | Encounter Summary ---
Author Organization [facility] Address [address] [place] [address] Care Team Providers Care Riprap Worker Name Role Phone Orlin Chambers MD Primary Care Provider [phone] Encounter Details Date Type Department Care Team (Late st Contact Info) Description 10/06/2022 Scanned Document [facility] [address] [place] [address] [facility] [address] [address] Social History Tobacco Use Types Packs/Day Years [...] on filedocumented in this encounter Care Teams Riprap Worker Relationship Specialty Start Date End Date Orlin Chambers MD [address] [address] PCP - General Family Medicine 01/29/19 08/16/23 Juma Harrington [facility] Pulmonary Disease 11/23/21 documented as of this encounter
--- OUTSIDE RECORDS SUMMARY | 2025-04-08 08:53 | XMS_ITS | Encounter Summary ---
Author Organization [facility] Address [address] [place] [address] Care Team Providers Care Storage Battery Inspector Name Role Phone Orlin Chambers MD Primary Care Provider [phone] Encounter Details Date Type Department Care Team (Late st Contact Info) Description 09/05/2022 Scanned Document [facility] 10 100 [facility] 203 [place] [address] Orlin Chambers MD 100 [facility] Liam [address] [place] [address] Social History Tobacco Use Types Packs/Day Years [...] on filedocumented in this encounter Care Teams Storage Battery Inspector Relationship Specialty Start Date End Date Orlin Chambers MD [address] [address] PCP - General Family Medicine 01/29/19 08/16/23 Juma Harrington [facility] Pulmonary Disease 11/23/21 documented as of this encounter
--- OUTSIDE RECORDS SUMMARY | 2025-04-08 08:53 | XMS_ITS | Encounter Summary ---
Author Organization [facility] Address [address] [place] [address] Care Team Providers Care Axle Bearing Polisher Name Role Phone Orlin Chambers MD Primary Care Provider [phone] Encounter Details Date Type Department Care Team (Late st Contact Info) Description 10/18/2020 Scanned Document [facility] 10 100 [facility] 203 [place] [address] Michael Sweeney MD [address] [place] [address] Social History Tobacco Use Types Packs/Day Years [...] on filedocumented in this encounter Care Teams Axle Bearing Polisher Relationship Specialty Start Date End Date Orlin Chambers MD [address] [address] PCP - General Family Medicine 01/29/19 08/16/23 Juma Harrington [facility] Pulmonary Disease 11/23/21 documented as of this encounter
--- OUTSIDE RECORDS SUMMARY | 2025-04-08 08:53 | XMS_ITS | Encounter Summary ---
Author Organization [facility] Address [address] [place] [address] Care Team Providers Care Wire Coating Operator Metal Name Role Phone Orlin Chambers MD Primary Care Provider [phone] Encounter Details Date Type Department Care Team (Late st Contact Info) Description 05/25/2019 Scanned Document [facility] Pulmonary and Critical Care- [address] [address] Kelly Bustillo MD [address] [place] [address] Social History Tobacco Use Types Packs/Day Years [...] on filedocumented in this encounter Care Teams Wire Coating Operator Metal Relationship Specialty Start Date End Date Orlin Chambers MD [address] [place] [address] PCP - General Family Medicine 01/29/19 08/16/23 Juma Harrington [facility] Pulmonary Disease 11/23/21 documented as of this encounter
--- OUTSIDE RECORDS SUMMARY | 2025-04-08 08:53 | XMS_ITS | Encounter Summary ---
Author Organization [facility] Address [address] [place] [address] Care Team Providers Care Supply Aide Name Role Phone Orlin Chambers MD Primary Care Provider [phone] Reason for Visit * Reason Onset Date Comments Medication Refill 04/10/2023 Encounter Details Date Type Department Care Team (Late st Contact Info) Description 04/10/2023 Refill [facility] [address] [place] [address] 203 [place] [address] Orlin Chambers MD 100 [facility] Liam 203 [place], [place] [phone] Insomnia, unspecified type Social History Tobacco Use [...] type documented in this encounter Care Teams Supply Aide Relationship Specialty Start Date End Date Orlin Chambers MD 100 [place] [address] PCP - General Family Medicine 01/29/19 08/16/23 Juma Harrington [facility] Pulmonary Disease 11/23/21 documented as of this encounter
== END 2025-04-08 09:04 | disposition home or self-care (01) ==
LOC: HO.HMCH 08:14
PROVIDERS: PCP Physician Assistant; Visit Provider Physician Assistant
DX: E11.65 Type 2 diabetes mellitus with hyperglycemia (principal); E78.2 Mixed hyperlipidemia; I10 Essential (primary) hypertension; F41.1 Generalized anxiety disorder; K52.9 Noninfective gastroenteritis and colitis, unspecified; M25.571 Pain in right ankle and joints of right foot; M25.572 Pain in left ankle and joints of left foot

== ENCOUNTER 2025-05-12 07:26 | Outpatient (REF) | payer OTHER, SELFPAY ==
--- OUTSIDE RECORDS SUMMARY | 2025-05-12 07:29 | XMS_ITS | Encounter Summary ---
Author Organization [facility] Address [address] [place] [address] Care Team Providers Care Resort Host Name Role Phone Orlin Chambers MD Primary Care Provider Encounter Details Date Type Department Care Team (Late st Contact Info) Description 11/01/2020 Scanned Document [facility] ORTHO SURGERY SCAN Orthopedic Surgery, Scan [...] on filedocumented in this encounter Care Teams Resort Host Relationship Specialty Start Date End Date Orlin Chambers MD [address] [place] [address] PCP - General Family Medicine 01/29/19 08/16/23 Juma Harrington [facility] Pulmonary Disease 11/23/21 documented as of this encounter
--- OUTSIDE RECORDS SUMMARY | 2025-05-12 07:29 | XMS_ITS | Encounter Summary ---
Author Organization [facility] Address [address] [place] [address] Care Team Providers Care Fluid Power Mechanic Name Role Phone Orlin Chambers MD Primary Care Provider [phone] Encounter Details Date Type Department Care Team (Late st Contact Info) Description 10/18/2020 Scanned Document [facility] 10 100 [facility] 203 [place] [address] Michael Sweeney MD [address] [place] [address] Social History Tobacco Use Types Packs/Day Years [...] on filedocumented in this encounter Care Teams Fluid Power Mechanic Relationship Specialty Start Date End Date Orlin Chambers MD [address] [address] PCP - General Family Medicine 01/29/19 08/16/23 Juma Harrington [facility] Pulmonary Disease 11/23/21 documented as of this encounter
--- OUTSIDE RECORDS SUMMARY | 2025-05-12 07:29 | XMS_ITS | Clinical Summary ---
Author Organization [facility] Address [address] [place] [address] Care Team Providers Care Logistics Coordinator Name Role Phone Orlin Chambers Primary Care Provider [phone] Allergies No known active allergies Medications Medication [...] age to complete this topic Care Teams Logistics Coordinator Relationship Specialty Start Date End Date Orlin Chambers DO PCP - General Family Medicine 06/17/18
--- OUTSIDE RECORDS SUMMARY | 2025-05-12 07:29 | XMS_ITS | Clinical Summary ---
Author Organization [facility] Address [address] [place] [address] Care Team Providers Care Protective Clothing Issuer Name Role Phone Unavailable Primary Care Provider [...] of 2 - PCV) 02/16/1984 Colonoscopy 2010 RSV Vaccine 50 years and older and Patients (1 - Risk 50-74 years 1-dose series) 2015 Zoster (Shingles) Vaccine (1 of 2) 2015 DTaP/Tdap/Td Vaccines (2 - Td or Tdap) 03/31/2018 03/31/2008 Lung Cancer Screening (LDCT) 05/29/2020 05/29/2019, 05/28/2019 Hemoglobin A1C 12/04/2022 06/06/2022, 12/07/2021 Lipid Panel 12/07/2022 12/07/2021, 07/16, 07/02/2020 Creatinine with GFR 06/06/2023 06/06/2022, 12/07/2021, 07/29/2021, Additional history exists Microalbumin/Creatinine Ratio Urine 06/06/2023 06/06/2022 Influenza Vaccine 02/13/2025 07/18/2021, , 03/19/2012 COVID-19 Vaccine ( season) 2025 07/18/2021, 10/20/2020, [...] Urine, Random 242 20 - 320 mg/dL [facility] [email or web address] Microalbumin, Urine, Random 12.1 See Note: mg/dL [facility] Comment: Reference Range: Reference Range Not established Microalbumin/Creat inine Ratio 50(H) <30 mcg/mg creat [facility] Comment: The ADA defines abnormalities in albumin [...] URINE ORDERABLES Final Result Performing Organization Address [facility] de Phone Number [facility] [address] [place] [address], [place] [address] * (ABNORMAL) Hemoglobin A1c (06/06/2022 8:55 AM EST) Hemoglobin A1C 6.5(H) <5.7 % of total Hgb [facility] Comment: For someone without known diabetes, a [...] MD LAB BLOOD ORDERABLES Final Re sult [facility] [address], [place] [address] * (ABNORMAL) Basic Metabolic Panel (06/06/2022 8:55 AM EST) Glucose 129(H) 65 - 99 mg/dL [facility] Comment: Fasting reference interval For someone without known diabetes, a glucose value >125 mg/dL indicates that they may have diabetes and this should be confirmed with a follow-up test. Blood Urea Nitrogen (BUN) 33(H) 7 - 25 mg/dL [facility] Creatinine 1.49(H) 0.70 - 1.30 mg/dL [facility] Creatinine w/ eGFR 54(L) > OR = 60 mL/min/1.7 3m2 [facility] Comment: The eGFR is based on the CKD-EPI 2020 equation. To calculate the new eGFR from a previous Creatinine or Cystatin C result, go to https://www.kidney.org/professionals/ kdoqi/gfr%5Fcalculator BUN/Creatinine Ratio 22 6 - 22 (calc) [facility] Sodium 139 135 - 146 mmol/L [facility] Potassium 4.1 3.5 - 5.3 mmol/L [facility] Chloride 102 98 - 110 mmol/L [facility] CO2 27 20 - 32 mmol/L [facility] Calcium 9.5 8.6 - 10.3 mg/dL [facility] Blood specimen (specimen) 06/06/2022 8:55 AM EST 06/06/2022 8:55 AM EST Narrative [facility] - 06/07/2022 4:59 PM EST FASTING:YES FASTING: YES us Orlin Chambers MD LAB BLOOD ORDERABLES Final Re sult [facility] [address], [place] [address] * (ABNORMAL) Lipid Panel [facility] LDL (12/07/2021 8:13 AM EDT) Cholesterol, Total 191 <200 mg/dL [facility] Cholesterol, HDL 48 > OR = 40 mg/dL [facility] Triglycerides 237(H) <150 mg/dL [facility] Comment: If a non-fasting specimen was collected, consider repeat triglyceride testing on a fasting specimen if clinically indicated. Chris et al. J. of Clin. Lipidol. 2015;9:129-169. LDL Cholesterol 107(H) mg/dL (calc) [facility] Comment: Reference range: <100 Desirable range <100 mg/dL for primary prevention; <70 mg/dL for patients with CHD or diabetic patients with > or = 2 CHD risk factors. LDL-C is now calculated using the Michael-Rosario calculation, which is a validated novel method providing better accuracy than the Friedewald equation in the estimation of LDL-C. Michael SS et al. ELSY. 2013;310(19): 5476-0919 (http://education.Iconicfuture/faq/DBJ536) Cholesterol/HDL Ratio 4.0 <5.0 (calc) [facility] Non HDL Chol. (LDL+VLDL) 143(H) <130 mg/dL (calc) [facility] Comment: For patients with diabetes plus 1 major ASCVD risk factor, treating to a non-HDL-C goal of <100 mg/dL (LDL-C of <70 mg/dL) is considered a therapeutic option. Blood specimen (specimen) 12/07/2021 8:13 AM EDT 12/07/2021 8:13 AM EDT Narrative [facility] - 12/08/2021 12:09 AM EDT FASTING:YES FASTING: YES us Orlin Chambers MD LAB BLOOD ORDERABLES Final Re sult [facility] [address], [place] [address] * CT Thorax w/o contrast (05/29/2019 9:23 [...] your patient to us, Travis Villarreal MD [id number] (Electronically Signed - 05/29/2019 09:23) Copy: ORLIN CHAMBERS DO [facility] 10 100 [place], [place] [id number] PATIENT , Narrative 05/29/2019 9:23 AM EST EXAMINATION: CT CHEST WITHOUT CONTRAST CLINICAL INFORMATION: Left lower lobe pulmonary nodule. COMPARISON: No relevant prior studies are available for comparison. TECHNIQUE: Multidetector volumetric CT imaging of the chest was done. Axial MIP volume rendering provided. Sagittal and coronal reformatted images were obtained. DLP: 523.69 mGy-cm FINDINGS: CHUCK WAGON COOK: Unremarkable. LUNGS: There is a 3 mm [...] images were obtained. DLP: 523.69 mGy-cm FINDINGS: CHUCK WAGON COOK: Unremarkable. LUNGS: There is a 3 mm nodule medially within the right upper lobe(axial image 151/505). There is an adjacent 1-2 mm nodule (axial [id number]). There is an irregular 0.6 cm nodule [...] interval change. According to the UPDATED 2017 [facility] recommendations, the advised follow up imaging [...] your patient to us, Travis Villarreal MD [id number] (Electronically Signed - 05/29/2019 09:23) Copy: ORLIN CHAMBERS DO [facility] 10 100 [place] [address] PATIENT , Kelly Bustillo MD IMG CT ORDERABLES Final Result from Last 3 Months or Most Recently Relevant to Health Maintenance Insurance [employer] [place] MGD MEDICARE Care Teams Protective Clothing Issuer Relationship Specialty Start Date End Date Juma Harrington [facility] Pulmonary Disease 11/23/21
--- OUTSIDE RECORDS SUMMARY | 2025-05-12 07:29 | XMS_ITS | Encounter Summary ---
Author Organization [facility] Address [address] [place] [address] Care Team Providers Care Face And Fill Packer Name Role Phone Orlin Chambers MD Primary Care Provider [phone] Encounter Details Date Type Department Care Team (Late st Contact Info) Description 02/27/2023 Scanned Document [facility] EMERGENCY MED SCAN Emergency Medicine, Scan Social [...] on filedocumented in this encounter Care Teams Face And Fill Packer Relationship Specialty Start Date End Date Orlin Chambers MD [address] [place] [address] PCP - General Family Medicine 01/29/19 08/16/23 Juma Harrington [facility] Pulmonary Disease 11/23/21 documented as of this encounter
--- OUTSIDE RECORDS SUMMARY | 2025-05-12 07:29 | XMS_ITS | Encounter Summary ---
Author Organization [facility] Address [address] [place] [address] Care Team Providers Care Simulation Analyst Name Role Phone Orlin Chambers MD Primary Care Provider [phone] Reason for Visit * Reason Comments Medication Refill Encounter Details Date Type Department Care Team (Late st Contact Info) Description 08/04/2019 Refill [facility] [address] [address] Orlin Chambers MD 100 [facility] Liam 203 [place], [place] [phone] Insomnia, unspecified type Social History Tobacco Use [...] type documented in this encounter Care Teams Simulation Analyst Relationship Specialty Start Date End Date Orlin Chambers MD 100 [place] [address] PCP - General Family Medicine 01/29/19 08/16/23 Juma Harrington [facility] Pulmonary Disease 11/23/21 documented as of this encounter
--- OUTSIDE RECORDS SUMMARY | 2025-05-12 07:29 | XMS_ITS | Encounter Summary ---
Author Organization [facility] Address [address] [place] [address] Care Team Providers Care Strong Nitric Operator Name Role Phone Unavailable Primary Care Provider Unavailabl e Encounter Details Date Type Department Care Team ([facility] st Contact Info) Description 11/05/2023 Scanned Document [facility] CARDIOLOGY SCAN Cardiology, Scan Social [...] on filedocumented in this encounter Care Teams Strong Nitric Operator Relationship Specialty Start Date End Date Juma Harrington [facility] Pulmonary Disease 11/23/21 documented as of this encounter
--- OUTSIDE RECORDS SUMMARY | 2025-05-12 07:29 | XMS_ITS | Encounter Summary ---
Author Organization [facility] Address [address] [place] [address] Care Team Providers Care Powertrain Design Engineer Name Role Phone Orlin Chambers MD Primary Care Provider [phone] Encounter Details Date Type Department Care Team (Late st Contact Info) Description 01/25/2023 Scanned Document [facility]THO SURGERY SC[facility] [place] [address] [place] [address] Social History Tobacco Use Types Packs/Day Years [...] on filedocumented in this encounter Care Teams Powertrain Design Engineer Relationship Specialty Start Date End Date Orlin Chambers MD [address] [place] [address] PCP - General Family Medicine 01/29/19 08/16/23 Juma Harrington [facility] Pulmonary Disease 11/23/21 documented as of this encounter
--- OUTSIDE RECORDS SUMMARY | 2025-05-12 07:29 | XMS_ITS | Encounter Summary ---
Author Organization [facility] Address [address] [place] [address] Care Team Providers Care Insurance Account Executive Name Role Phone Orlin Chambers MD Primary Care Provider [phone] Reason for Visit * Reason Comments Medication Refill Encounter Details Date Type Department Care Team (Late st Contact Info) Description 09/12/2019 Refill [facility] 10 100 [facility] [address] [place] [address] Anayeli Del Rosario, COMPUTER SYSTEMS ENGINEER 100 [facility] [address] [place], [place] [id number] Anxiety Social History Tobacco Use Types Packs/Day [...] unspecified documented in this encounter Care Teams Insurance Account Executive Relationship Specialty Start Date End Date Orlin Chambers MD 100 [place] [address] PCP - General Family Medicine 01/29/19 08/16/23 Juma Harrington [facility] Pulmonary Disease 11/23/21 documented as of this encounter
--- OUTSIDE RECORDS SUMMARY | 2025-05-12 07:29 | XMS_ITS | Encounter Summary ---
Author Organization [facility] Address [address] [place] [address] Care Team Providers Care Medical Researcher Name Role Phone Orlin Chambers MD Primary Care Provider Encounter Details Date Type Department Care Team (Late st Contact Info) Description 01/29/2019 Scanned Document [facility] 10 100 [facility] [address] [place] [address] Provider, Hortencia, [address] [place] [address] Social History Tobacco Use Types Packs/Day Years [...] filedocumented in this encounter Care Teams Medical Researcher Relationship Specialty Start Date End Date Orlin Chambers MD 100 [facility] [address] [place], [place] [phone] PCP - General Family Medicine 01/29/19 08/16/23 Juma Harrington [facility] Pulmonary Disease 11/23/21 documented as of this encounter
--- OUTSIDE RECORDS SUMMARY | 2025-05-12 07:29 | XMS_ITS | Encounter Summary ---
Author Organization [facility] Address [address] [place] [address] Care Team Providers Care Crisis Mental Health Therapist Name Role Phone Orlin Chambers MD Primary Care Provider Encounter Details Date Type Department Care Team (Late st Contact Info) Description 09/05/[address] [facility] 10 100 [facility] 203 [place] [address] Orlin Chambers MD 100 [facility] [address] [place] [address] Social History Tobacco Use Types Packs/Day Years [...] on filedocumented in this encounter Care Teams Crisis Mental Health Therapist Relationship Specialty Start Date End Date Orlin Chambers MD [address] [address] PCP - General Family Medicine 01/29/19 08/16/23 Juma Harrington [facility] Pulmonary Disease 11/23/21 documented as of this encounter
--- OUTSIDE RECORDS SUMMARY | 2025-05-12 07:29 | XMS_ITS | Clinical Summary ---
Author Organization [facility] Address [address] [place] [address] Care Team Providers Care Truck Body Builder Name Role Phone Pcp, No MD Primary [...] age to complete this topic Care Teams Truck Body Builder Relationship Specialty Start Date End Date PcpVonda MD [address] [place] [address] PCP - General Internal Medicine 02/21/21
--- OUTSIDE RECORDS SUMMARY | 2025-05-12 07:29 | XMS_ITS | Encounter Summary ---
Author Organization [facility] Address [address] [place] [address] Care Team Providers Care Health Spa Manager Name Role Phone Orlin Chambers MD Primary Care Provider [phone] Reason for Visit * Reason Onset Date Comments Medication Refill 04/10/2023 Encounter Details Date Type Department Care Team (Late st Contact Info) Description 04/10/2023 Refill [facility] [address] [place] [address] 203 [place] [address] Orlin Chambers MD 100 [facility] [address] [place], [place] [phone] Insomnia, unspecified type Social History Tobacco Use [...] type documented in this encounter Care Teams Health Spa Manager Relationship Specialty Start Date End Date Orlin Chambers MD 100 [place] [address] PCP - General Family Medicine 01/29/19 08/16/23 Juma Harrington [facility] Pulmonary Disease 11/23/21 documented as of this encounter
--- OUTSIDE RECORDS SUMMARY | 2025-05-12 07:29 | XMS_ITS | Encounter Summary ---
Author Organization [facility] Address [address] [place] [address] Care Team Providers Care Board Filler Name Role Phone Orlin Chambers MD Primary Care Provider Encounter Details Date Type Department Care Team (Late st Contact Info) Description 08/24/2020 Scanned Document [facility] [address] [place] [address] Provider, External, [address] [place] [address] Social History Tobacco Use Types Packs/Day Years [...] on filedocumented in this encounter Care Teams Board Filler Relationship Specialty Start Date End Date Orlin Chambers MD 100 [place] [address] PCP - General Family Medicine 01/29/19 08/16/23 Juma Harrington [facility] Pulmonary Disease 11/23/21 documented as of this encounter
--- OUTSIDE RECORDS SUMMARY | 2025-05-12 07:29 | XMS_ITS | Encounter Summary ---
Author Organization [facility] Address [address] [place] [address] Care Team Providers Care Health Unit Clerk Name Role Phone Orlin Chambers MD Primary Care Provider Encounter Details Date Type Department Care Team (Late st Contact Info) Description 10/06/2022 Scanned Document [facility] [address] [place] [address] [facility] [address] [address] Social History Tobacco Use Types Packs/Day Years [...] filedocumented in this encounter Care Teams Health Unit Clerk Relationship Specialty Start Date End Date Orlin Chambers MD [address] [address] PCP - General Family Medicine 01/29/19 08/16/23 Juma Harrington [facility] Pulmonary Disease 11/23/21 documented as of this encounter
--- OUTSIDE RECORDS SUMMARY | 2025-05-12 07:29 | XMS_ITS | Encounter Summary ---
Author Organization [facility] Address [address] [place] [address] Care Team Providers Care Base Brander Name Role Phone Orlin Chambers MD Primary Care Provider [phone] Encounter Details Date Type Department Care Team (Late st Contact Info) Description 05/25/2019 Scanned Document [facility] Pulmonary and Critical Care- [address] [address] Kelly Bustillo MD [address] [place] [address] Social History Tobacco Use Types Packs/Day Years [...] on filedocumented in this encounter Care Teams Base Brander Relationship Specialty Start Date End Date Orlin Chambers MD [address] [place] [address] PCP - General Family Medicine 01/29/19 08/16/23 Juma Harrington [facility] Pulmonary Disease 11/23/21 documented as of this encounter
--- OUTSIDE RECORDS SUMMARY | 2025-05-12 07:29 | XMS_ITS | Encounter Summary ---
Author Organization [facility] Address [address] [place] [address] Care Team Providers Care Dip Filler Name Role Phone Orlin Chambers MD Primary Care Provider Reason for Visit * Reason Comments Medication Refill Encounter Details Date Type Department Care Team (Late st Contact Info) Description 04/10/2023 Refill [facility] [address] [address] Orlin Chambers MD 100 [facility] Liam [address] [place], [place] [phone] Insomnia, unspecified type Social History Tobacco Use [...] type documented in this encounter Care Teams Dip Filler Relationship Specialty Start Date End Date Orlin Chambers MD 100 [place] [address] PCP - General Family Medicine 01/29/19 08/16/23 Juma Harrington [facility] Pulmonary Disease 11/23/21 documented as of this encounter
--- OUTSIDE RECORDS SUMMARY | 2025-05-12 07:29 | XMS_ITS | Encounter Summary ---
Author Organization [facility] Address [address] [place] [address] Care Team Providers Care Skelp Processor Name Role Phone Orlin Chambers MD Primary Care Provider Encounter Details Date Type Department Care Team (Late st Contact Info) Description 12/06/2022 Scanned Document [facility] Estrellita [address] [address] Cardiology, Scan Social History Tobacco [...] on filedocumented in this encounter Care Teams Skelp Processor Relationship Specialty Start Date End Date Orlin Chambers MD 100 [place] [address] PCP - General Family Medicine 01/29/19 08/16/23 Juma Harrington [facility] Pulmonary Disease 11/23/21 documented as of this encounter
--- OUTSIDE RECORDS SUMMARY | 2025-05-12 07:29 | XMS_ITS | Data Portability ---
Author Organization [facility], Main Office Address [address] [facility] [address] [place] [id number] Care Team Providers Care Ambulatory Care Coordinator Name Role Phone COLLINSRYAN Primary Care Provider Assessment Encounter Date Assessment Date Assessment LastModified by Organization Details LastModified Time 05/12/2014 05/12/2014 Obesity and smoking remain most concerning risks. phelmuth Not available 05/14/2014 19:51:49 08/25/2015 08/25/2015 Reviewed concerns about CV risk. will repeat labs as ordered and have him follow home BP. Return with BP readings in 3 mos. phelmuth Not available 08/25/2015 21:59:58 Plan of [...] serum or plasm a 2013 014 [facility] Not available 4 19:52:00 Referral gastr marjorie fong ist refer ral 2015 016 jourdan [facility], [address] [place], [address], 6 11:02:[address]/di etiti an refer ral 2015 016 [facility] Not available 6 21:59:[address]/di etiti an refer ral 2013 014 [facility] Not available 4 19:52:00 Procedures colon oscop y scree farhana (PROC ) - Due for scree nign colon oscop y and has had diver tic x 2 in last 6 month s. 2014 [facility] [address] [place] [address], [address], 6 11:22:40 Surgeries None recor ded. Imaging elect arvin lópez am 2015 016 [facility] In-Office Order, Internal Use Only DO Not Attach Compendium DO Not Attach Compendium, Do Not Delete/merge, [id number] 6 21:59:57 Medication Orders bupro pion HCl XL 300 mg 24 hr table t, exten ded relea se 2015 016 [id number], [address] [facility], [place], [address], 6 21:59:58 omepr azole 20 mg table t,bryan ny relea se 2015 016 [id number], [address] [place], [address], 6 21:59:57 simva stati n 80 mg table t 2015 016 [id number], [address] [place], [address], 6 21:59:57 chlor thali done 25 mg table t 2015 016 [id number], [address] [place], [address], 6 21:59:57 Cipro 500 mg table t 2014 015 [email or web address] os [id number], [address] [place], [address], 6 09:13:40 metro nidaz ole 500 mg table t 2014 015 [email or web address] os [id number], [address] [place], [address], 6 09:13:40 Patient Targets Encounter Date Encounter Id Patient Goals Patient Target Last Modified By Organization Details Last Modified Time 05/12/2014 [id number] Ongoing of Microalbumin/Cr eatinine Ratio yearly Not available Not available Not available Ongoing of Blood Pressure 140 / 90 Not available Not available Not available Ongoing of Hemoglobin A1C 2 times per yr Not available Not available Not available Ongoing of Hemoglobin A1C <7 Not available Not available Not available Ongoing of LDL Direct < 100 Not available Not available Not available 05/12/2014 [id number] Pt advised and agrees to weekly aerobic exercise of 150 minutes to lower blood glucose, decrease carbohydrate intake to no more than 25 % of total carbs per day adopt the plate method of eating , and monitor blood glucose as directed Bring meter and/or readings to your appointments [facility] Not available 05/14/2014 19:51:49 08/25/2015 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 and to monitor dietary sodium. Will monitor home blood pressures and bring readings to appointments. [facility] 08/25/2015 21:59:58 Patient Instructions Encounter Date Encounter Id Patient Instructions Last Modified By Organization Details Last Modified Time 05/12/2014 [id number] deciding about u sing medicines to quit smoking phelmuth Not available 05/14/2014 19:52:00 Quitting Tobacco : [facility] available 05/14/2014 19:52:00 low back pain: exercises phelmuth Not available 05/14/2014 19:52:00 exercise program : getting started phelmuth Not available 05/14/2014 19:52:00 high blood press ure: care instructions [facility] Not available 05/14/2014 19:52:00 learning about h igh blood pressure phelmuth Not available 05/14/2014 19:52:00 Starting a Weight-Loss Plan: Care [facility]ructions [facility] Not available 05/14/2014 19:52:00 Nutrition Referr al and Weight Management Follow-up Information [facility] Not available 05/14/2014 19:52:00 Medications were reviewed at this visit and reconciled. Changes in the active medications are reflected in the current medication list and discussed with patient (or caregiver) with instructions for follow up as needed. Printed medication list provided to the patient as part of the visit summary. phelmuth Not available 05/14/2014 19:51:49 11/02/2014 [id number] diverticulitis: care instructions [email or web address] Not available 11/02/2014 10:30:33 learning about diverticulosis and diverticulitis [email or web address] Not available 11/02/2014 10:30:33 PT to FU with PC P in 1 month, beforehand if persistent of worsening pain, fever, vomiting, bloody/black stool. [email or web address] Not available 11/02/2014 10:30:02 05/28/2015 [id number] Colon Cancer Screening [facility] [email or web address] Not available 05/31/2015 15:33:50 learning about c olon cancer [facility] Not available 05/29/2015 12:23:20 To call or retur n for worsening or concerns [email or web address] Not available 05/28/2015 16:41:03 Go to ER if worsening abdominal pain, fever or persistent vomiting. I have reviewed the note and agree with the assessment and plan of care. [facility] Not available 05/29/2015 12:23:21 08/25/2015 [id number] deciding about u sing medicines to quit smoking pheuth Not available 08/25/2015 21:59:57 Quitting Tobacco : Care Instructions [facility] Not available 08/25/2015 21:59:58 gastroesophageal reflux disease (GERD): care instructions [facility] Not available 08/25/2015 21:59:57 learning about h igh blood sugar pheuth Not available 08/25/2015 21:59:57 fatigue: care instructions [facility] Not available 08/25/2015 21:59:57 Colon Cancer Screening [facility] Not available 08/25/2015 21:59:57 learning about c olon cancer pheuth Not available 08/25/2015 21:59:57 high blood press ure: care instructions [facility] Not available 08/25/2015 21:59:57 learning about h igh blood pressure [facility] Not available 08/25/2015 21:59:57 Starting a Weight-Loss Plan: Care Instructions [facility] Not available 08/25/2015 21:59:57 Nutrition Referr al and Weight Management Follow-up Information [facility] Not available 08/25/2015 21:59:57 Continue to emi tor home blood pressures and bring to next appointment. [facility] Not available 08/25/2015 10:11:42 Medications were reviewed at this visit and reconciled. Changes in the active medications are reflected in the current medication list and discussed with patient (or caregiver) with instructions for follow up as needed. Printed medication list provided to the patient as part of the visit summary. [facility] Not available 08/25/2015 10:11:42 Reason for Referral Machine Guide Base Winder/dietitian Refer ral for Body mass index 30+ - obesity Referring Physician: Ryan Bustos, Internal Medicine, Encounter Date: 05/12/2014 Referring Physician: Ryan dean, Internal Medicine, Encounter Date: 08/25/2015 Machine Guide Base Winder/dietitian Refer ral for Body mass index 30+ [...] DO Not Attach Compendium, Do Not Delete/merge, [id number] 08/25/2015 09:20:03 08/25/19 16 08/25/2015 elect rocar diogr am QRS Not Available In-Office Order Internal Use Only DO Not Attach Compendium DO Not Attach Compendium, Do Not Delete/merge, [id number] 08/25/2015 09:20:03 08/25/19 16 08/25/2015 elect rocar diogr am MA Interval Not Available In-Off ice Order Internal Use Only DO Not Attach Compendium DO Not Attach Compendium, Do Not Delete/merge, [id number] 08/25/2015 09:20:03 08/25/19 16 08/25/2015 elect rocar diogr am QRS Duration Not Available In-Of fice Order Internal Use Only DO Not Attach Compendium DO Not Attach Compendium, Do Not Delete/merge, [id number] 08/25/2015 09:20:03 08/25/19 16 08/25/2015 elect rocar diogr am QT Interval Not Available In-Off ice Order Internal Use Only DO Not Attach Compendium DO Not Attach Compendium, Do Not Delete/merge, [id number] 08/25/2015 09:20:03 05/12/20 14 05/12/2014 lipid panel , serum cholesterol, total 154 mg/dL (<200) Not Available [facility] (Centralized Electronic Ordering - All Locations) Patient Can Go To The Location Of Their Choice, [id number] 05/25/2014 15:11:14 05/12/20 14 05/12/2014 lipid panel , serum triglyceride 118 mg/dL (<150) Not Available [facility] (Centralized Electronic Ordering - All Locations) Patient Can Go To The Location Of Their Choice, [id number] 05/25/2014 15:11:14 05/12/20 14 05/12/2014 lipid panel , serum HDL chol 45 mg/dL (>39) Not Available [facility] (Centralized Electronic Ordering - All Locations) Patient Can Go To The Location Of Their Choice, [id number] 05/25/2014 15:11:14 05/12/20 14 05/12/2014 lipid panel , serum LDL cholesterol, calculated 85 mg/dL (0-130 ) Not Available [facility] (Centralized Electronic Ordering - All Locations) Patient Can Go To The Location Of Their Choice, [id number] 05/25/2014 15:11:14 05/12/20 14 05/12/2014 lipid panel , serum non HDL cholesterol (calc) 109 mg/dL (<160) Not Available [facility] (Centralized Electronic Ordering - All Locations) Patient Can Go To The Location Of Their Choice, [id number] 05/25/2014 15:11:14 05/12/20 14 05/12/2014 BMP, serum or plasm a glucose 89 mg/dL (70-99 ) Not Available [facility] (Centralized Electronic Ordering - All Locations) Patient Can Go To The Location Of Their Choice, [id number] 05/25/2014 15:11:13 05/12/20 14 05/12/2014 BMP, serum or plasm a BUN 21 mg/dL (6-20) high Not Available [facility] (Centralized Electronic Ordering - All Locations) Patient Can Go To The Location Of Their Choice, [id number] 05/25/2014 15:11:13 05/12/20 14 05/12/2014 BMP, serum or plasm a creatinine 1.1 mg/dL (0.7-1 .2) Not Available [facility] (Centralized Electronic Ordering - All Locations) Patient Can Go To The Location Of Their Choice, [id number] 05/25/2014 15:11:13 05/12/20 14 05/12/2014 BMP, serum or plasm a sodium 140 mmol/ L (133-1 45) Not Available [facility] (Centralized Electronic Ordering - All Locations) Patient Can Go To The Location Of Their Choice, [id number] 05/25/2014 15:11:13 05/12/20 14 05/12/2014 BMP, serum or plasm a potassium 4.3 mmol/ L (3.6-5 .2) Not Available [facility] (Centralized Electronic Ordering - All Locations) Patient Can Go To The Location Of Their Choice, [id number] 05/25/2014 15:11:13 05/12/20 14 05/12/2014 BMP, serum or plasm a chloride 99 mmol/ L (98-10 7) Not Available [facility] (Centralized Electronic Ordering - All Locations) Patient Can Go To The Location Of Their Choice, [id number] 05/25/2014 15:11:13 05/12/20 14 05/12/2014 BMP, serum or plasm a bicarbonate 30 mmol/ L (22-29 ) high Not Available [facility] (Centralized Electronic Ordering - All Locations) Patient Can Go To The Location Of Their Choice, [id number] 05/25/2014 15:11:13 05/12/20 14 05/12/2014 BMP, serum or plasm a anion gap 11 (4-17) Not Available [facility] (Centralized Electronic Ordering - All Locations) Patient Can Go To The Location Of Their Choice, [id number] 05/25/2014 15:11:13 05/12/20 14 05/12/2014 BMP, serum or plasm a calcium 9.9 mg/dL (8.6-1 0.5) Not Available [facility] (Centralized Electronic Ordering - All Locations) Patient Can Go To The Location Of Their Choice, [id number] 05/25/2014 15:11:13 05/12/20 14 05/12/2014 BMP, serum [...] Go To The Location Of Their Choice, [id number] 05/25/2014 15:11:13 05/12/20 14 05/12/2014 BMP, serum or plasm a est GFR >60 mL/mi n/1.7 3_M2 THE MDRD STUDY 'S ESTIM ATED GFR EQUAT ION HAS NOT BEEN VALID ATED IN CHILD MOOSE (<18 YRS), PREGN ANT WOMEN , THE ELDER LY (AGE >70 YRS), RACIA L OR ETHNI C SUBGR OUPS OTHER THAN VENKATESH TRACY AND AFRIC COLE DAVIDSON CANS. Not Available [facility] (Centralized Electronic Ordering [...] 05/28/2015 19:59:07 05/28/2005/28/2015 CBC w/ auto diff MCHC 34.4 % [...] Their Choice, 05/28/2015 19:59:07 05/28/20 15 05/28/2015 CMP, serum [...] 20:18:24 05/28/2005/28/2015 CMP, serum or plasm a alk phos 63 U/L (40-12 9) Not Available [facility] (Centralized Electronic Ordering - All Locations) Patient Can Go To The Location Of Their Choice, 05/28/2015 20:18:24 05/28/2005/28/2015 CMP, serum or plasm a ALT 28 [...] resul t No observ ation record ed. pheuth Not Available 2015 09:50:37 08/25/19 16 carol lópez am No observ ation record ed. [facility] Not Available 2015 09:41:39 Result Notes None recorded. Problems Name Problem SNOMED Code Status Onset Date Resolution Date Notes Provider Name and Address Organization Details Recorded Time Body mass index 30+ - obesity 651625139 [facility] Low back pain 579782833 [facility] 09:[facility] Divertic ulitis of colon 538210832 [facility] 09:33:55 Fatigue 98990581 [facility] 09:33:[facility] Hypergly cemia 85512175 [facility] 09:[facility] Administ ration of bacteria l and viral vaccine Completed 200702/19/2014 RECORDED 03/31/20 08 7:18AM BY HIEN MANNING MA, OFFICE VISIT [facility] 09:[facility] Administ ration of bacteria l and viral vaccine Completed 200702/20/2014 RECORDED 03/31/20 08 7:18AM BY HIEN MANNING MA, [facility] 09:[facility] Administ ration of bacteria l and viral vaccine Completed 200701/27/2014 RECORDED 03/31/20 08 7:18AM BY HIEN MANNING MA, OFFICE VISIT BLAYNE Hurtado, [facility] 6 09:33:55 General examinat ion of patient Completed 200702/19/2014 RECORDED 07/14/20 08 7:03AM BY LETTY FU ON/ADDEN DUM BLAYNE Hurtado, [facility] 6 09:33:55 General examinat ion of patient Completed 200702/20/2014 RECORDED 07/14/20 08 7:03AM BY LETTY FU ON/ADDEN DUM Hien Rivera-BLAYNE Humphrey, [facility] 6 09:33:55 General examinat ion of patient Completed 200701/27/2014 RECORDED 07/14/20 08 7:03AM BY LETTY FU ON/ADDEN DUM BLAYNE Hurtado, [facility] 6 09:33:55 Closed fracture of lower end of radius AND ulna 95663378 Completed 200802/19/2014 RECORDED 05/20/20 09 8:20AM BY RYAN BUSTOS MD, ANNOTJEANNIE ON/ADDEN DUM [facility] 09:[facility] Disorder of kidney and/or ureter 260861481 Completed 200802/19/2014 IMPRESSI ON: CREATINI NE 1.4 (11/2006) ; RECORDED 05/20/20 09 8:20AM BY RYAN BUSTOS MD, ANNOTATI ON/ADDEN DUM BLAYNE Hurtado, [facility] 6 09:33:55 Edema 862811329 Completed 200802/19/2014 RECORDED 05/20/20 09 7:44AM BY HIEN MANNING MA, ANNOTATI ON/ADDEN DUM Hien BLAYNE Talbot, [facility] 6 09:33:55 Closed fracture of lower end of radius AND ulna 57256426 Completed 200802/20/2014 RECORDED 05/20/20 09 8:20AM BY RYAN BUSTOS MD, ANNOTATI ON/ADDEN DUM Hien Rivera-BLAYNE Humphrey, [facility] 6 09:33:55 Disorder of kidney and/or ureter 249785718 Completed 200802/20/2014 IMPRESSI ON: CREATINI NE 1.4 (11/2006) ; RECORDED 05/20/20 09 8:20AM BY RYAN BUSTOS MD, ANNOTATI ON/ADDEN DUM [facility] 09:33:[facility] Edema 663044513 Completed 200802/20/2014 RECORDED 05/20/20 09 7:44AM BY HIEN MANNING MA, ANNOTATI ON/ADDEN DUM [facility] 6 09:33:55 Carpal tunnel syndrome 24293106 Completed 200801/27/2014 RECORDED 05/20/20 09 8:20AM BY RYAN BUSTOS MD, ANNOTATI ON/ADDEN DUM [facility] 09:33:[facility] Closed fracture of lower end of radius AND ulna 45328417 Completed 200801/27/2014 RECORDED 05/20/20 09 8:20AM BY RYAN BUSTOS MD, ANNOTATI ON/ADDEN DUM [facility] 6 09:33:[facility] Disorder of kidney and/or ureter 497808327 Completed 200801/27/2014 IMPRESSI ON: CREATINI NE 1.4 (11/2006) ; RECORDED 05/20/20 09 8:20AM BY RYAN BUSTOS MD, ANNOTATI ON/ADDEN DUM BLAYNE Hurtado, [facility] 6 09:33:55 Edema 663860751 Completed 200801/27/2014 RECORDED 05/20/20 09 7:44AM BY HIEN MANNING MA, ANNOTJEANNIE ON/ADDEN DUM BLAYNE Hurtado, [facility] 6 09:33:55 Influenz a vaccine needed [id number] 06 Completed 201102/19/2014 RECORDED 03/19/20 12 8:37AM BY NADYA CAMILO, OFFICE VISIT BLAYNE Huratdo, [facility] 6 09:33:55 Follow-u p encounte r Completed 201102/19/2014 RECORDED 03/19/20 12 8:24AM BY LETTY LUNA ON/ADDEN DUM BLAYNE Hurtado, [facility] 6 09:33:55 Epidermo id cyst of skin 713210330 Completed 201102/19/2014 RECORDED 03/19/20 12 8:24AM BY LETTY LUNA ON/ADDEN DUM BLAYNE Hurtado, [facility] 6 09:33:55 Tobacco user [id number] Completed 201102/19/2014 RECORDED 03/19/20 12 8:24AM BY LETTY LUNA/ADDEN DUM BLAYNE Hurtado, [facility] 6 09:33:55 Sprain of foot 86331219 Completed 201102/19/2014 RECORDED 03/19/20 12 8:24AM BY LETTY LUNA ON/ADDEN DUM BLAYNE Hurtado, [facility] 6 09:33:55 Influenz a vaccine needed [id number] 06 Completed 201102/20/2014 RECORDED 03/19/20 12 8:37AM BY NADYA CAMILO, OFFICE VISIT BLAYNE Hurtado, [facility] 6 09:33:55 Follow-u p encounte r Completed 201102/20/2014 RECORDED 03/19/20 12 8:24AM BY LETTY LUNA ON/ADDEN DUM BLAYNE Hurtado, [facility] 6 09:33:55 Epidermo id cyst of skin 496635141 Completed 201102/20/2014 RECORDED 03/19/20 12 8:24AM BY LETTY LUNA ON/ADDEN DUM BLAYNE Hurtado, [facility] 6 09:33:55 Tobacco user [id number] Completed 201102/20/2014 RECORDED 03/19/20 12 8:24AM BY LETTY LUNA ON/ADDEN DUM BLAYNE Hurtado, [facility] 6 09:33:55 Sprain of foot 78502088 Completed 201102/20/2014 RECORDED 03/19/20 12 8:24AM BY LETTY LUNA ON/ADDEN DUM BLAYNE Hurtado, [facility] 6 09:33:55 Influenz a vaccine needed 10326623425 06 Completed 201101/27/2014 RECORDED 03/19/20 12 8:37AM BY NADYA CAMILO, OFFICE VISIT BLAYNE Hurtado, [facility] 6 09:33:55 Follow-u p encounte r Completed 201101/27/2014 RECORDED 03/19/20 12 8:24AM BY LETTY LUNA ON/ADDEN DUM BLAYNE Hurtado, [facility] 6 09:33:55 Epidermo id cyst of skin 766453660 Completed 201101/27/2014 RECORDED 03/19/20 12 8:24AM BY LETTY LUNA ON/ADDEN DUM BLAYNE Hurtado, [facility] 6 09:33:55 Tobacco user [id number] Completed 201101/27/2014 RECORDED 03/19/20 12 8:24AM BY LETTY LUNA ON/ADDEN DUM BLAYNE Hurtado, [facility] 6 09:33:55 History of clinical finding in subject 743816714 Active 2011 BLAYNE Hurtado, [facility] 6 09:33:55 Sprain of foot 17906767 Completed 201101/27/2014 RECORDED 03/19/20 12 8:24AM BY LETTY LUNA ON/ADDEN DUM BLAYNE Hurtado, [facility] 6 09:33:55 Sprains and strains of joints and adjacent muscles Completed 201102/19/2014 RECORDED 04/23/20 12 9:33AM BY DIXON HOLLAND MA, LETTY ON/ADDEN DUM BLAYNE Hurtado, [facility] 6 09:33:55 Chest pain 81567434 Completed 201102/19/2014 RECORDED 04/23/20 12 9:33AM BY DIXON HOLLAND MA, LETTY ON/ADDEN DUM BLAYNE Hurtado, [facility] 6 09:33:55 Adult health examinat ion Completed 201102/19/2014 RECORDED 04/23/20 12 9:33AM BY DIXON HOLLAND MA, ANNOTATI ON/ADDEN DUM BLAYNE Hurtado, [facility] 6 09:33:55 Hyperhid rosis 465550067 Completed 201102/19/2014 RECORDED 04/23/20 12 9:33AM BY DIXON HOLLAND MA, ANNOTATI ON/ADDEN DUM Hien Nicole-M BLAYNE rico null, [facility] 6 09:33:55 Sprains and strains of joints and adjacent muscles Completed 201102/20/2014 RECORDED 04/23/20 12 9:33AM BY DIXON HOLLAND MA, ANNOTJEANNIE ON/ADDEN DUM Hien Nicole-M BLAYNE rico, [facility] 6 09:33:55 Chest pain 79367931 Completed 201102/20/2014 RECORDED 04/23/20 12 9:33AM BY DIXON HOLLAND MA, ANNOTJEANNIE ON/ADDEN DUM Hien Nicole-M BLAYNE rico, [facility] 6 09:33:55 Adult health examinat ion Completed 201102/20/2014 RECORDED 04/23/20 12 9:33AM BY DIXON HOLLAND MA, ANNOTJEANNIE ON/ADDEN DUM Hien Nicole-M BLAYNE rico, [facility] 6 09:33:55 Hyperhid tomis 635427865 Completed 201102/20/2014 RECORDED 04/23/20 12 9:33AM BY DIXON HOLLAND MA, ANNOTJEANNIE ON/ADDEN DUM Hien Nicole-M BLAYNE rico, [facility] 6 09:33:55 Sprains and strains of joints and adjacent muscles Completed 201101/27/2014 RECORDED 04/23/20 12 9:33AM BY DIXON HOLLAND MA, ANNOTJEANNIE ON/ADDEN DUM Hien Nicole-M BLAYNE rico, [facility] 6 09:33:55 Chest pain 33945590 Completed 201101/27/2014 RECORDED 04/23/20 12 9:33AM BY DIXON HOLLAND MA, ANNOTATI ON/ADDEN DUM Hien Nicole-M BLAYNE rico, [facility] 6 09:33:55 Adult health examinat ion Completed 201101/27/2014 RECORDED 04/23/20 12 9:33AM BY DIXON HOLLAND MA, ANNOTATI ON/ADDEN DUM Hien Nicole-M BLAYNE rico, [facility] 6 09:33:55 Hyperhid rosis 188427250 Completed 201101/27/2014 RECORDED 04/23/20 12 9:33AM BY DIXON HOLLAND MA, ANNOTATI ON/ADDEN DUM Hien Nicole-M BLAYNE rico, [facility] 6 09:33:55 Hypersom donis 27376561 Completed 201102/19/2014 RECORDED 06/18/20 12 7:23AM BY JERAMIE MUNIZ I, ANNOTATI ON/ADDEN DUM Hien Nicole-M BLAYNE rico, [facility] 6 09:33:55 Hypersom donis 02109411 Completed 201102/20/2014 RECORDED 06/18/20 12 7:23AM BY JERAMIE MUNIZ I ANNOTATI ON/ADDEN DUM Hien Nicole-M BLAYNE rico, [facility] 6 09:33:55 Hypersom donis 38190559 Completed 201101/27/2014 RECORDED 06/18/20 12 7:23AM BY JERAMIE MUNIZ I, ANNOTATI ON/ADDEN DUM Hien Nicole-M BLAYNE rico, [facility] 6 09:33:55 Bicipita l tenosyno vitis 97910674 Completed 201202/19/2014 IMPRESSI ON: AT ATTACHME NT AT ELBOW. CONTINUE ALEVE; RECORDED 10/24/19 13 10:00AM BY HIEN MANNING MA, ANNOTATI ON/ADDEN DUM Hien BLAYNE Talbot, [facility] 6 09:33:55 Bicipita l tenosyno vitis 24870291 Completed 201202/20/2014 IMPRESSI ON: AT ATTACHME NT AT ELBOW. CONTINUE ALEVE; RECORDED 10/24/19 13 10:00AM BY HIEN MANNING MA, ANNOTJEANNIE ON/ADDEN DUM BLAYNE Hurtado, [facility] 6 09:33:55 Bicipita l tenosyno vitis 82945537 Completed 201201/27/2014 IMPRESSI ON: AT ATTACHME NT AT ELBOW. CONTINUE ALEVE; RECORDED 10/24/19 13 10:00AM BY HIEN MANNING MA, ANNOTJEANNIE ON/ADDEN DUM Hien BLAYNE Talbot, [facility] 6 09:33:55 Hypercho lesterol emia 13917812 Completed 201202/19/2014 RECORDED 11/26/19 13 1:46PM BY DIXON HOLLAND MA, ANNOTATI ON/ADDEN DUM Hien BLAYNE Talbot, [facility] 6 09:33:54 Renewal of prescrip tion Completed 201202/19/2014 RECORDED 11/26/19 13 1:46PM BY DIXON HOLLAND MA, ANNOTATI ON/ADDEN DUM Hien BLAYNE Talbot, [facility] 6 09:33:55 Hypercho lesterol emia 82790213 Completed 201202/20/2014 RECORDED 11/26/19 13 1:46PM BY DIXON HOLLAND MA, ANNOTJEANNIE ON/ADDEN DUM Hien BLAYNE Talbot, [facility] 6 09:33:54 Renewal of prescrip tion Completed 201202/20/2014 RECORDED 11/26/19 13 1:46PM BY DIXON HOLLAND MA, ANNOTATI ON/ADDEN DUM BLAYNE Hurtado, [facility] 6 09:33:55 Hypercho lesterol emia 03266265 Completed 201201/27/2014 RECORDED 11/26/19 13 1:46PM BY DIXON HOLLAND MA, ANNOTATI ON/ADDEN DUM BLAYNE Hurtado, [facility] 6 09:33:54 Renewal of prescrip tion Completed 201201/27/2014 RECORDED 11/26/19 13 1:46PM BY DIXON HOLLAND MA, ANNOTATI ON/ADDEN DUM BLAYNE Hurtado, [facility] 6 09:33:55 Carpal tunnel syndrome 99343400 Active 2013 BLAYNE Hurtado, [facility] 6 09:33:55 Acute prostati tis 14711094 Active 2013 IMPRESSI ON: WE DISCUSSE D [...] HIEN MANNING MA, OFFICE VISIT BLAYNE Hurtado, [facility] 6 09:33:55 Biliuria 43817516 Active 2013 BLAYNE Hurtado, [facility] 6 09:33:55 Chronic tension- type headache 626179260 Active 2013 BLAYNE Hurtado, [facility] 6 09:33:55 Depressi ve disorder 86404610 Active 2013 BLAYNE Hurtado, [facility] 6 09:33:55 Gastroes ophageal reflux disease 991711009 Active 2013 BLAYNE Hurtado, [facility] 6 09:33:55 Malaise and fatigue 587462977 Active 2013 BLAYNE Hurtado, [facility] 6 09:33:55 Hyperlip idemia 37535200 Active 2013 BLAYNE Hurtado, [facility] 6 09:33:54 Essentia l hyperten duglas 92688454 Active 2013 BLAYNE Hurtado, [facility] 6 09:33:55 Insomnia 909588130 Active 2013 BLAYNE Hurtado, [facility] 6 09:33:55 Fibromyo sitis 03870183 Active 2013 BLAYNE Hurtado, [facility] 6 09:33:55 Obesity 128974114 Active 2013 STORY: RECENT INCREASE IN HIS WEIGHT.; RECORDED 01/10/20 14 1:21PM BY HIEN MANNING MA, OFFICE VISIT BLAYNE Hurtado, [facility] 6 09:33:55 Proteinu brandon 77025315 Active 2013 BLAYNE Hurtado, [facility] 6 09:33:55 Psychose xual dysfunct ion associat ed with inhibite d libido 205019477 Active 2013 BLAYNE Hurtado, [facility] 6 09:33:55 Tobacco dependen ce syndrome 76625763 Active 2013 BLAYNE Hurtado, [facility] 6 09:33:55 Problem Notes None recorded. Procedures Surgical History Date Name Laterality Status Provider Name and Address Organization Details Recorded Time 6 Colonoscopy completed Analisa Jamesutmona [facility] 12/06/2015 16:58:34 3 Vasectomy completed [facility] 05/12/2014 08:16:32 5 Circumcision completed [facility] 05/12/2014 08:16:32 Imaging Results None recorded. Procedure Notes None recorded. Medical Equipment None Reported. Allergies Allergen ID Allergen Name Allergen Category Reaction Reaction Severity Criticality Documentation Date Start Date Code Code System Note Provider Name and Address Organization Details Recorded Time 1997 aspirin medicatio n nausea Not available Not available 01/27/2014 1191 RxNorm Pat Lem[facility], [facility] [address], [place], [address], [facility] 5 16:39:27 Medications Name Sig Start Date [...] 12 9:02AM BY RYAN BUSTOS MD, ANNOTATI ON/ROSA DUM; Not Available Not Available Not Available cephalexi n 500 mg tablet THREE TIMES DAILY 12/29 completed RECORDED 01/07/20 10 10:46AM BY LESA CORRAL PA-C, MEDICATI ON AUTO-KAMLESH CTIVATIO N; Not [...] Available Not Available Elastic Wrist Splint Support [facility], DX: CARPAL TUNNEL SYNDROME 12/19 completed RECORDED 12/23/19 10 8:48AM BY HIEN MANNING MA, MEDICATI ON AUTO-KAMLESH CTIVATIO N; Not Available Not Available Not Available omeprazol e 20 mg tablet,de layed release Take 1 tablet every day by oral route for 90 days. 2015 active Not Available Not Available Not Avai lable Vitals Date Recorded Body height Body mass index (BMI) Body weight Oxygen saturation Oxygen saturation in Arterial blood by Pulse oximetry Heart rate Body temperature Systolic And Diastolic Provider Name and Address Organization Details Last Updated DateTime 6 171.45 cm 36.3 kg/m2 471376. 97948 g 97 % 97 % 88 /min 98.1 [degF] 134/82 mm[Hg] Hien rico MA [facility] 6 09:20:03 Date Recorded Oxygen saturation Oxygen saturation in Arterial blood by Pulse oximetry Body weight Heart rate Body mass index (BMI) Body height Body temperature Systolic And Diastolic Provider Name and Address Organization Details Last Updated DateTime 5 96 % 96 % 989338. 61280 g 80 /min 36.1 kg/m2 171.45 cm 97.9 [degF] 110/70 mm[Hg] Elsa Conrad [facility] 5 09:52:32 Date Recorded Oxygen saturation Oxygen saturation in Arterial blood by Pulse oximetry Body weight Body temperature Heart rate Body mass index (BMI) Body height Systolic And Diastolic Provider Name and Address Organization Details Last Updated DateTime 4 97 % 97 % 61270.6 5874 g 98.1 [degF] 64 /min 31.2 kg/m2 171.45 cm 115/74 mm[Hg] Dixon Holland [facility] 4 08:21:21 Date Recorded Body weight Oxygen saturation Oxygen saturation in Arterial blood by Pulse oximetry Body height Body mass index (BMI) Body temperature Heart rate Systolic And Diastolic Provider Name and Address Organization Details Last Updated DateTime 5 911305. 65251 g 96 % 96 % 171.45 cm 36.7 kg/m2 96.3 [degF] 98 /min 117/80 mm[Hg] Elsa Conrad MA [facility] 5 16:28:18 Social History Question Answer Notes LastModified by Organizat ion Details LastModified Time Tobacco Smoking Status Current Every Day Smoker Dixon nagel [facility] 05/12/2014 08:16:25 Do You Have An Advance [...] 05/12/2014 Are you able to care for yourself independently? 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 No Information not available 05/12/2014 What is [...] Recorded Time Tdap 8 completed Not Available [facility] 01/27/2014 13:31:33 Influenza, split virus, trivalent, preservative 2 completed Not Available [facility] 01/27/2014 13:31:33 Influenza, split virus, trivalent, PF 4 completed Not Available [facility] 08/02/2019 02:21:57 Past Encounters Encounter ID Performer Location Encounter Start Date Encounter Closed Date Diagnosis/Indication Diagnosis SNOMED-CT Code Diagnosis ICD10 Code Diagnosis IMO Codes Diagnosis Note [id number] autoEComm erce [address] [facility] [place] [address] 11/14/2006 00:00:00 [id number] autoEComm erce [address] [facility] [place] [address] 03/31/2008 00:00:00 [id number] autoEComm erce [address] [facility] [address] [place] [address] 07/14/2008 00:00:00 [id number] autoEComm erce [address] [facility],[address] [place] [address] 09/23/2008 00:00:00 [id number] [place] [address] 10/09/2008 00:00:00 [id number] [address] [place] [address] 10/29/2008 00:00:00 [id number] [address] [place] [address] 12/24/2008 00:00:00 [id number] [address]Comm erce [address] [place] [address] 02/01/2009 00:00:00 [id number] [address] [place] [address] 05/20/2009 00:00:00 [id number] autoEComm erce [address] [facility] [address] [place] [address] 08/26/2009 00:00:00 [id number] autoEComm erce [address] [facility],[address] [place] [address] 09/30/2009 00:00:00 [id number] autoEComm erce [address] [facility] [address] [place] [address] 12/22/2009 00:00:00 [id number] autoEComm erce [address] [facility] [address] [place] [address] 01/24/2010 00:00:00 [id number] auto[address]Comm erce [address] [place] [address] 06/07/2010 00:00:00 [id number] auto[address]Comm erce [address] [place] [address] 08/30/2010 00:00:00 [id number] autoEComm erce [address] [place] [address] 11/21/2011 00:00:00 [id number] auto[address]Comm erce [address] [place] [address] 03/19/2012 00:00:00 [id number] autoEComm erce [address] [facility] [place], [place] [address] 04/23/2012 00:00:00 [id number] autoEComm erce [address] [facility] [place], [place] [address] 06/18/2012 00:00:00 [id number] autoEComm erce [address] [facility] [place], [place] [address] 08/19/2012 00:00:00 [id number] autoEComm erce [address] [facility] [place], [place] [address] 11/25/2012 00:00:00 [id number] autoEComm erce [address] [facility] [place], [place] [address] 01/09/2014 00:00:00 [id number] Ryan Bustos MD Main Office [address] [address] [place], [place] [address] 05/12/2014 08:03:54 05/12/2014 09:32:08 Adult health examination 630765491 Needs infl uenza immunization 579803602 Body mass index 30+ - obesity 791886197 Tobacco de pendence syndrome 72125221 Essential hypertension 29938970 Low back pain 086441550 Hyperlipidemia 49444059 [id number] [facility] Cor[facility] Main Office [address] [address] [place], [place] [address] 11/02/2014 09:42:42 11/02/2014 10:19:22 Diverticulitis of colon 482065510 symptomati c improvemen t on abx, complete course of antibiotic [id number] DANIS Bah Main Office [address] [address] [place], [place] [address] 05/28/2015 16:19:08 05/28/2015 16:57:55 Diverticulitis of colon 821861089 K57.32 Patient w/ hx diverticul itis via [...] plan. Screening for malignant neoplasm of colon 850490629 Z12.11 [id number] Ryan Bustos MD Main Office [address] [facility] [address] [place] [address] 08/25/2015 09:09:08 08/25/2015 10:14:52 Essential hypertension 24275415 I10 Screening for malignant neoplasm of colon 423606671 Z12.11 Hyperglycemia 62329062 R 73.9 Hyperlipidemia 07447284 E78.5 Malaise and fatigue 2717 25047 R53.83 Tobacco de pendence syndrome 90940429 F17.290 Gastroesop hageal reflux disease 896266110 K21.9 Body mass index 30+ - obesity 789698608 Z68.36 Health Concerns Section Related Observation LastModified by Organization Detai ls LastModified Time None Recorded Concern Status LastModified by Organization Details LastModified Time None Recorded Advance Directives Directive N: Payers Insurance Date Sequence Insurance Name Policy Number Policy Salazar Covered Member ID Salazar Member ID Guarantor Name 06/07/2021 1 [facility] [id number] Ross Morel [facility] [id number] Ross stacy 10/07/2021 1 [facility] ([facility] [id number] Ross Briggs [id number] Ross stacy Notes Date Note Type Note Provider Name and Address Organization Details Recorded Time 05/12/2014 text/html Hypertension F/UReported by PatientHPIFor associated symptoms, patient reportsno dizziness,no lightheadedness,no chest pain,no shortness of breath,no palpitations,no edema, andno calf pain with exertion. For lifestyle, patient reportsregular exerciseandlimiting/av oiding salt. For medications, patient reportstaking medications as directedandno side effects from medication. Back PainReported by PatientHPIFor aggravating factors, patient reportsmovement/positi oning. For location, patient reportspain is not radiating. For severity, patient reportsimproving. For associated symptoms, patient reportsno fever,no weak limbs, andno numbness of the legs/feet. HyperlipidemiaReported by PatientHPIFor type of hyperlipidemia, patient reportshypercholestero lemia. For duration, patient reportschronic. For control, patient reportsusually well controlledandat goal. For current therapy, patient reportscurrently taking: (simvastatin). For complications, patient reportsno coronary artery disease,no peripheral artery disease, andno cardiovascular disease. Ryan Bustos MD [address], [place], [address], [facility] 05/14/2014 19:52:01 11/02/2014 text/html H/o LLQ abdominal pain started 3 days ago while visiting [...] tolerating PO fluids. Ryan Bustos MD [address], [place], [address], [facility] 11/02/2014 12:34:39 05/28/2015 text/html Abdominal PainRe ported by PatientAbdominal PainFor quality, patient reportsdullandsharp. For onset/timing, patient reportsworse. For location, patient reportsllq. For severity, patient reportsmoderate. For duration, patient reportsconstant. For modifying factors, patient reportsmovement. For associated symptoms, patient reportsno fever,no chills,no heartburn, andno shortness of breath.Patient was diagnosed with diverticulitis in November diagnosed by CT scan, he dd not have GI follow-up. He denies Diarrhea or constipation, fever, chills, just having LLG, he has been eatingyogurt with fruit on the bottom the last few day- strawberries, had chili last night but tried to pick out corn. He states this feels exactly like his previous bout of divertic. Ryan Bustos MD [address] [address], [place], [address], [facility] 05/29/2015 12:23:22 08/25/2015 text/html Hypertension F/UReported by PatientHPIFor lifestyle, patient reportsnot exercising regularlybut reportslimiting/avoidi ng salt. For associated symptoms, patient reportsno dizziness,no lightheadedness,no chest pain,no shortness of breath,no palpitations,no edema, andno calf pain with exertion. For medications, patient reportstaking medications as directedandno side effects from medication.Not following home BP. Reports good medication adherence. Reviewed concerns about weight gain. HeadacheReported by PatientNotes posterior headaches without aura approx 2 times per week. Respond to OTC NSAIDs. Notes symptoms of chest pain over the last day. no [...] because of distressing dreams. Ryan Bustos MD [address], [place], [address], [facility] 08/25/2015 22:00:19
--- OUTSIDE RECORDS SUMMARY | 2025-05-12 07:29 | XMS_ITS | Encounter Summary ---
Author Organization [facility] Address [address] [place] [address] Care Team Providers Care Card Tape Converter Operator Name Role Phone Orlin Chambers MD Primary Care Provider [phone] Reason for Visit * Reason Onset Date Comments Medication Refill 11/10/2022 Encounter Details Date Type Department Care Team (Late st Contact Info) Description 11/10/2022 Refill [facility] [address] [place] [address] [address] [place] [address] Orlin Chambers MD 100 [facility] Liam [address] [place], [place] [phone] Insomnia, unspecified type Social History Tobacco Use [...] type documented in this encounter Care Teams Card Tape Converter Operator Relationship Specialty Start Date End Date Orlin Chambers MD 100 [place] [address] PCP - General Family Medicine 01/29/19 08/16/23 Juma Harrington [facility] Pulmonary Disease 11/23/21 documented as of this encounter
--- OUTSIDE RECORDS SUMMARY | 2025-05-12 07:29 | XMS_ITS | Encounter Summary ---
Author Organization [facility] Address [address] [place] [address] Care Team Providers Care Auto Mechanics Teacher Name Role Phone Orlin Chambers MD Primary Care Provider [phone] Encounter Details Date Type Department Care Team (Late st Contact Info) Description 10/06/2022 Scanned Document [facility] ORTHO SURGERY SCAN [place], [facility] [address] [place] [address] Social History Tobacco Use Types Packs/Day Years [...] on filedocumented in this encounter Care Teams Auto Mechanics Teacher Relationship Specialty Start Date End Date Orlin Chambers MD [address] [place] [address] PCP - General Family Medicine 01/29/19 08/16/23 Juma Harrington [facility] Pulmonary Disease 11/23/21 documented as of this encounter
--- OUTSIDE RECORDS SUMMARY | 2025-05-12 07:29 | XMS_ITS | Encounter Summary ---
Author Organization [facility] Address [address] [place] [address] Care Team Providers Care Potato Chip Maker Name Role Phone Orlin Chambers MD Primary Care Provider [phone] Reason for Visit * Reason Comments Medication Refill Encounter Details Date Type Department Care Team (Late st Contact Info) Description 04/12/2023 Refill [facility] [address] [address] Orlin Chambers MD 100 [facility] Liam 203 [place], [place] [phone] Insomnia, unspecified type Social History Tobacco Use [...] type documented in this encounter Care Teams Potato Chip Maker Relationship Specialty Start Date End Date Orlin Chambers MD 100 [place] [address] PCP - General Family Medicine 01/29/19 08/16/23 Juma Harrington [facility] Pulmonary Disease 11/23/21 documented as of this encounter
--- OUTSIDE RECORDS SUMMARY | 2025-05-12 07:29 | XMS_ITS | Encounter Summary ---
Author Organization [facility] Address [address] [place] [address] Care Team Providers Care Cellars Supervisor Name Role Phone Orlin Chambers MD Primary Care Provider Reason for Visit * Reason Onset Date Comments Medication Refill 04/12/2023 Encounter Details Date Type Department Care Team (Late st Contact Info) Description 04/12/2023 Refill [facility] [address] [place] [address] 203 [place] [address] Orlin Chambers MD 100 [facility] Liam 203 [place], [place] [phone] Insomnia, unspecified type Social History Tobacco Use [...] type documented in this encounter Care Teams Cellars Supervisor Relationship Specialty Start Date End Date Orlin Chambers MD 100 [place] [address] PCP - General Family Medicine 01/29/19 08/16/23 Juma Harrington [facility] Pulmonary Disease 11/23/21 documented as of this encounter
--- OUTSIDE RECORDS SUMMARY | 2025-05-12 07:29 | XMS_ITS | Encounter Summary ---
Author Organization [facility] Address [address] [place] [address] Care Team Providers Care Customer Service Security Officer Name Role Phone Orlin Chambers MD Primary Care Provider [phone] Reason for Visit * Reason Comments Medication Refill Encounter Details Date Type Department Care Team (Late st Contact Info) Description 02/01/2020 Refill [facility] 10 100 [facility] [address] [place] [address] Anayeli Del Rosario, RECORDING ARTIST 100 [facility] Liam [address] [place], [place] [phone] Anxiety Social History Tobacco Use Types Packs/Day [...] unspecified documented in this encounter Care Teams Customer Service Security Officer Relationship Specialty Start Date End Date Orlin Chambers MD 100 [place] [address] PCP - General Family Medicine 01/29/19 08/16/23 Juma Harrington [facility] Pulmonary Disease 11/23/21 documented as of this encounter
--- OUTSIDE RECORDS SUMMARY | 2025-05-12 07:29 | XMS_ITS | Encounter Summary ---
Author Organization [facility] Address [address] [place] [address] Care Team Providers Care Suction Plate Carrier Cleaner Name Role Phone Orlin Chambers MD Primary Care Provider [phone] Encounter Details Date Type Department Care Team (Late st Contact Info) Description 08/29/2022 Scanned Document [facility] ORTHO SURGERY SCAN [place], [facility] [address] [place] [address] Social History Tobacco Use Types Packs/Day Years [...] on filedocumented in this encounter Care Teams Suction Plate Carrier Cleaner Relationship Specialty Start Date End Date Orlin Chambers MD [address] [place] [address] PCP - General Family Medicine 01/29/19 08/16/23 Juma Harrington [facility] Pulmonary Disease 11/23/21 documented as of this encounter
--- OUTSIDE RECORDS SUMMARY | 2025-05-12 07:29 | XMS_ITS | Encounter Summary ---
Author Organization [facility] Address [address] [place] [address] Care Team Providers Care Medical Transport Specialist Name Role Phone Orlin Chambers MD Primary Care Provider [phone] Reason for Visit * Reason Comments Medication Refill Encounter Details Date Type Department Care Team (Late st Contact Info) Description 11/04/2019 Refill [facility] 10 100 [facility] [address] [place] [address] Anayeli Del Rosario, SERVICE ENGINEER 100 [facility] Liam 203 [place], [place] [phone] Anxiety Social History Tobacco Use Types Packs/Day [...] unspecified documented in this encounter Care Teams Medical Transport Specialist Relationship Specialty Start Date End Date Orlin Chambers MD [address] [address] PCP - General Family Medicine 01/29/19 08/16/23 Juma Harrington [facility] Pulmonary Disease 11/23/21 documented as of this encounter
--- OUTSIDE RECORDS SUMMARY | 2025-05-12 07:29 | XMS_ITS | Encounter Summary ---
Author Organization [facility] Address [address] [place] [address] Care Team Providers Care Plisse Machine Operator Name Role Phone Orlin Chambers MD Primary Care Provider [phone] Reason for Visit * Reason Comments Medication Refill Encounter Details Date Type Department Care Team (Late st Contact Info) Description 08/04/2019 Refill [facility] [address] [facility] [address] [place] [address] Anayeli Del Rosario, MANAGER BUSINESS SYSTEMS 100 [facility] Liam [address] [place], [place] [phone] Hyperlipidemia, unspecified hyperlipidemia type Social History Tobacco [...] type documented in this encounter Care Teams Plisse Machine Operator Relationship Specialty Start Date End Date Orlin Chambers MD 100 [place] [address] PCP - General Family Medicine 01/29/19 08/16/23 Juma Harrington [facility] Pulmonary Disease 11/23/21 documented as of this encounter
--- OUTSIDE RECORDS SUMMARY | 2025-05-12 07:29 | XMS_ITS | Encounter Summary ---
Author Organization [facility] Address [address] [place] [address] Care Team Providers Care Farm Service Adviser Name Role Phone Orlin Chambers MD Primary Care Provider [phone] Reason for Visit * Reason Onset Date Comments Medication Refill 11/13/2022 Encounter Details Date Type Department Care Team (Late st Contact Info) Description 11/13/2022 Refill [facility] [address] [place] [address] [address] [place] [address] Orlin Chambers MD 100 [facility] Liam [address] [place], [place] [phone] Insomnia, unspecified type Social History Tobacco Use [...] type documented in this encounter Care Teams Farm Service Adviser Relationship Specialty Start Date End Date Orlin Chambers MD 100 [place] [address] PCP - General Family Medicine 01/29/19 08/16/23 Juma Harrington [facility] Pulmonary Disease 11/23/21 documented as of this encounter
--- OUTSIDE RECORDS SUMMARY | 2025-05-12 07:29 | XMS_ITS | Encounter Summary ---
Author Organization [facility] Address [address] [place] [address] Care Team Providers Care Orthopedic Shoes Salesperson Name Role Phone Orlin Chambers MD Primary Care Provider [phone] Encounter Details Date Type Department Care Team (Late st Contact Info) Description 02/27/2023 Scanned Document [facility] EMERGENCY MED SCAN Emergency Medicine, [...] on filedocumented in this encounter Care Teams Orthopedic Shoes Salesperson Relationship Specialty Start Date End Date Orlin Chambers MD [address] [place] [address] PCP - General Family Medicine 01/29/19 08/16/23 Juma Harrington [facility] Pulmonary Disease 11/23/21 documented as of this encounter
--- OUTSIDE RECORDS SUMMARY | 2025-05-12 07:29 | XMS_ITS | Encounter Summary ---
Author Organization [facility] Address [address] [place] [id number] Care Team Providers Care Electric Detector Operator Name Role Phone Orlin Chambers MD Primary Care Provider [phone] Reason for Visit * Reason Comments Medication Refill Encounter Details Date Type Department Care Team (Late st Contact Info) Description 10/09/2022 Refill [facility] 10 100 [facility] [address] [place] [address] Anayeli Del Rosario APRN 100 [facility] [address] [place], [place] [phone] Anxiety Social History Tobacco Use Types Packs/Day [...] unspecified documented in this encounter Care Teams Electric Detector Operator Relationship Specialty Start Date End Date Orlin Chambers MD 100 [place] [address] PCP - General Family Medicine 01/29/19 08/16/[address] [facility] Pulmonary Disease 11/23/21 documented as of this encounter
--- OUTSIDE RECORDS SUMMARY | 2025-05-12 07:29 | XMS_ITS | Encounter Summary ---
Author Organization [facility] Address [address] [place] [address] Care Team Providers Care Deburring Machine Operator Name Role Phone Orlin Chambers MD Primary Care Provider Encounter Details Date Type Department Care Team (Late st Contact Info) Description 09/08/2020 Scanned Document [facility] [address] [place] [id number] Provider, External, [address] [place] [address] Social History Tobacco Use Types Packs/Day Years [...] on filedocumented in this encounter Care Teams Deburring Machine Operator Relationship Specialty Start Date End Date Orlin Chambers MD [address] [place] [address] PCP - General Family Medicine 01/29/19 08/16/23 Juma Harrington [facility] Pulmonary Disease 11/23/21 documented as of this encounter
--- OUTSIDE RECORDS SUMMARY | 2025-05-12 07:29 | XMS_ITS | Encounter Summary ---
Author Organization [facility] Address [address] [place] [address] Care Team Providers Care Supply Chain Systems Manager Name Role Phone Orlin Chambers MD Primary Care Provider Encounter Details Date Type Department Care Team (Late st Contact Info) Description 06/03/2019 Scanned Document [facility] [address] [address] Provider, Generic Social History Tobacco [...] on filedocumented in this encounter Care Teams Supply Chain Systems Manager Relationship Specialty Start Date End Date Orlin Chambers MD 100 [facility] [address] [place], [place] [phone] PCP - General Family Medicine 01/29/19 08/16/23 Juma Harrington [facility] Pulmonary Disease 11/23/21 documented as of this encounter
--- OUTSIDE RECORDS SUMMARY | 2025-05-12 07:29 | XMS_ITS | Clinical Summary ---
Author Organization [facility] Address [address] [place] [address] Phone Care Team Providers Care Web Press Jogger Name Role Phone Jas Byrd Primary Care Provider Surgical History Surgery Date Site/Laterality Comments WISDOM TOOTH EXTRACTION PROCEDURE:WISDOM TOOTH EXTRACTION KNEE ARTHROSCOPY 06/03/2019 Left PROCEDURE:KNEE ARTHROSCOPY;COMMENT:Procedure: LEFT KNEE ARTHROSCOPY, PARTIAL MEDIAL MENISCECTOMY; Surgeon: David Pack MD; Location: [facility]; [facility]; Laterality: Left; Medical History Medical History [...] age to complete this topic Care Teams Web Press Jogger Relationship Specialty Start Date End Date Jas Byrd PA [address] [place] [address] PCP - General Physician [employer] Senior Sergeant 01/13/25
--- OUTSIDE RECORDS SUMMARY | 2025-05-12 07:29 | XMS_ITS | Encounter Summary ---
Author Organization [facility] Address [address] [place] [address] Care Team Providers Care Photo Printer Name Role Phone Orlin Chambers MD Primary Care Provider [phone] Encounter Details Date Type Department Care Team (Late st Contact Info) Description 01/30/[address] [facility] [place] [address] [place] [address] Social History Tobacco Use Types Packs/Day Years [...] on filedocumented in this encounter Care Teams Photo Printer Relationship Specialty Start Date End Date Orlin Chambers MD [address] [place] [address] PCP - General Family Medicine 01/29/19 08/16/23 Juma Harrington [facility] Pulmonary Disease 11/23/21 documented as of this encounter
--- OUTSIDE RECORDS SUMMARY | 2025-05-12 07:29 | XMS_ITS | Encounter Summary ---
Author Organization [facility] Address [address] [place] [address] Care Team Providers Care Channel Lip Wetter Name Role Phone Orlin Chambers MD Primary Care Provider [phone] Encounter Details Date Type Department Care Team [...] on filedocumented in this encounter Care Teams Channel Lip Wetter Relationship Specialty Start Date End Date Orlin Chambers MD [address] [place] [address] PCP - General Family Medicine 01/29/19 08/16/23 Juma Harrington [facility] Pulmonary Disease 11/23/21 documented as of this encounter
[2025-05-12 08:13] LABS: Anion Gap 13 (12-20); Blood Urea Nitrogen 32 mg/dL (9-16); Calcium 9.6 mg/dL (8.4-10.2); Carbon Dioxide 24 mmol/L (22-29); Chloride 105 mmol/L (96-108); Estimated Glomerular Filt Rate > 60; Potassium 4.0 mmol/L (3.3-5.1); Sodium 138 mmol/L (135-145)
== END 2025-05-12 07:27 | disposition home or self-care (01) ==
LOC: HO.LAB 07:26
PROVIDERS: PCP Physician Assistant; Visit Provider Internal Medicine Nephrology
DX: N18.31 Chronic kidney disease, stage 3a (principal); Z13.1 Encounter for screening for diabetes mellitus
CPT/HCPCS: 36415; 80051; 82310; 82565; 83036; 84520

== ENCOUNTER 2025-05-15 10:02 | Outpatient (AMB) | payer OTHER, SELFPAY ==
--- NOTE | 2025-05-15 10:22 | HO.NEPHOV ---
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 He had high BMI as well as ТАТЬЯНА which has improved with weight loss. He had higher HbA1c which has improved. He is on GLP 1 agonist as well as metformin. His serum creatinine is stable . His BUN also has been high. He is on losartan and his BP has been at goal. He denies retinopathy, CAD, CVA, CHF, PAD, carotid stenosis or GARTH. His brother has CKD 3 and is in [place]. He does not take excessive NSAID's. He has no new bone or back pain, epistaxis, recurrent sinusitis, sore throat, skin rashes or infections. He denies using drugs and does not have any hepatitis or HIV. He maintains good hydration. He has no H/O cancer but has H/O pulmonary nodules. He denies any prostatic issues. His renal USS showed mild bilateral renal cortical thinning. [facility] Medical History Lower extremity edema Dyspnea ТАТЬЯНА (obstructive sleep apnea) Pulmonary nodules Obese Personal history of nicotine dependence Erectile dysfunction HLD (hyperlipidemia) Type 2 diabetes mellitus HTN (hypertension) Surgical History History of repair of right rotator cuff History of left knee surgery History of colonoscopy Family History Mother Lung cancer Father Diabetes Bladder cancer Heart attack Brother Hypertension Diabetes Maternal Grandmother Hypertension Arthritis Maternal Aunt Family history of malignant neoplasm of female breast Social History Household Members: Family Housing: House Do you presently have visiting nurse or other home services: No Alcohol intake: never Patient Tobacco Use Status: Former Tobacco user Tobacco use type: Cigarette Years Smoked: (onset 16yo, 1.5ppd x 35yrs, 50pyh, quit 2016) e-Cigarette/Vaping Use: Never Used Second Hand Smoke Exposure: No service: No Current occupational status: employed Cognitive needs: No Hearing needs: No Vision needs: Yes (Reading glasses) Review of Systems Const All systems reviewed & are unremarkable except as noted in HPI and below Physical Exam Vital Signs: Last Vital Signs Pulse 85 05/15/25 10:24 BP 110/68 05/15/25 10:24 Pulse Ox 97 05/15/25 10:24 Oxygen Delivery Method Room Air 05/15/25 10:24 BMI result Body Mass Index 27.8 Const General: comfortable and no acute distress Orientation/consciousness: patient oriented x3 HEENT Head: Yes normocephalic Mouth: Normal oral and palatal mucosa present Eyes EOM: EOMs intact bilaterally Neck Neck: Yes supple Resp Auscultation: clear to auscultation bilaterally Cardio Jugular venous distension: no JVD Rate: regular rate GI Palpation (GI): Soft to palpation Auscultation: normal bowel sounds General: Yes no CVA tenderness Back/Spine/Pelvis Back: no CVA tenderness Skin General skin exam: no rashes or lesions noted Neuro General: patient oriented x3 and moves all extremities Extrem General: Yes no pedal edema Results Reviewed Nephrology Results: Hgb, (14.0-18.0) 13.3 g/dl L 04/02/25 WBC, (4.8-10.8) 6.8 X10*3/uL 04/02/25 Plt Count, (160-400) 182 X10*3/uL 04/02/25 Sodium, (135-145) 138 mmol/L 05/12/25 Potassium, (3.3-5.1) 4.0 mmol/L 05/12/25 Chloride, (96-108) 105 mmol/L 05/12/25 Carbon Dioxide, (22-29) 24 mmol/L 05/12/25 BUN, (9-16) 32 mg/dL H 05/12/25 Creatinine, (0.5-1.4) 1.16 mg/dL 05/12/25 Calcium, (8.4-10.2) 9.6 mg/dL 05/12/25 Renal US 10/20/24 Assessment & Plan Assessment & Plan (1) HTN (hypertension): Code(s): I10 - Essential (primary) hypertension Category: Medical Qualifiers: Hypertension type: primary hypertension Qualified Code(s): I10 - Essential (primary) hypertension (2) Microalbuminuria: Code(s): R80.9 - Proteinuria, unspecified Category: Medical (3) CKD stage 3a, GFR 45-59 ml/min: Code(s): N18.31 - Chronic kidney disease, stage 3a Category: Medical Plan 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 His brother has CKD 3. His renal functions are currently stable. His BP is at goal. He has proteinuria. He is on ARB. He does not take excess NSAID's and maintains good hydration. His renal USS showed B/L cortical thinning. All the work up including 24 hour urine for cr clearance was reviewed . I shall consider stopping HCTZ at the next visit . Answered all questions. Orders: Orders Electrolytes 8 Months I10 - Essential (primary) hypertension, N18.31 - Chronic kidney disease, stage 3a, R80.9 - Proteinuria, unspecified Creatinine 8 Months I10 - Essential (primary) hypertension, N18.31 - Chronic kidney disease, stage 3a, R80.9 - Proteinuria, unspecified Calcium 8 Months I10 - Essential (primary) hypertension, N18.31 - Chronic kidney disease, stage 3a, R80.9 - Proteinuria, unspecified Blood Urea Nitrogen 8 Months I10 - Essential (primary) hypertension, N18.31 - Chronic kidney disease, stage 3a, R80.9 - Proteinuria, unspecified Protein Creatinine Ratio, Ur 8 Months I10 - Essential (primary) hypertension, N18.31 - Chronic kidney disease, stage 3a, R80.9 - Proteinuria, unspecified Coding Level of Care Code Est Pt Level 4 (34551) Diagnoses Primary hypertension I10 Hypertension type: primary hypertension Microalbuminuria R80.9 CKD stage 3a, GFR 45-59 ml/min N18.31
[2025-05-15 10:24] VITALS: BP 110/68; PULSE 85; O2SAT 97; BMI 27.8
--- OUTSIDE RECORDS SUMMARY | 2025-05-15 11:22 | XMS_ITS | Data Portability ---
Author Organization [facility], Main Office Address [address] [facility] [address] [place] [id number] Care Team Providers Care Tools Programmer Name Role Phone COLLINSRYAN Primary Care Provider [phone] Assessment Encounter Date Assessment Date Assessment LastModified [...] BMP, serum or plasm a 2013 014 [facility] Not available 4 19:52:00 Referral gastr marjorie fong ist refer ral 2015 016 jourdan [facility], [address] [place], [address], 6 11:02:[address]/di etiti an refer ral 2015 016 [facility] Not available 6 21:59:[address]/di etiti an refer ral 2013 014 [facility] Not available 4 19:52:00 Procedures colon oscop y scree farhana (PROC ) - Due for scree nign colon oscop y and has had diver tic x 2 in last 6 month s. 2014 [facility] [address] [place] [address], [address], 6 11:22:40 Surgeries None recor ded. Imaging elect arvin lópez am 2015 016 [facility] In-Office Order, Internal Use Only DO Not Attach Compendium DO Not Attach Compendium, Do Not Delete/merge, [id number] 6 21:59:57 Medication Orders bupro pion HCl XL 300 mg 24 hr table t, exten ded relea se 2015 016 [id number], [address] [facility], [place], [address], 6 21:59:58 omepr azole 20 mg table t,bryan ny relea se 2015 016 [id number], [address] [place], [address], 6 21:59:57 simva stati n 80 mg table t 2015 016 [id number], [address] [place], [address], 6 21:59:57 chlor thali done 25 mg table t 2015 016 [id number], [address] [place], [address], 6 21:59:57 Cipro 500 mg table t 2014 015 [email or web address] os [id number], [address] [place], [address], 6 09:13:40 metro nidaz ole 500 mg table t 2014 015 [email or web address] os [id number], [address] [place], [address], 6 09:13:40 Patient Targets Encounter Date Encounter Id Patient Goals Patient Target Last Modified By Organization Details Last Modified Time 05/12/2014 [id number] Ongoing of Microalbumin/Cr eatinine Ratio yearly Not available Not available Not available Ongoing of Blood Pressure 140 / 90 Not available Not available Not available Ongoing of Hemoglobin A1C 2 times per yr Not available Not available Not available Ongoing of Hemoglobin A1C <7 Not available Not available Not available Ongoing of LDL Direct < 100 Not available Not available Not available 05/12/2014 [id number] Pt advised and agrees to weekly aerobic exercise of 150 minutes to lower blood glucose, decrease carbohydrate intake to no more than 25 % of total carbs per day adopt the plate method of eating , and monitor blood glucose as directed Bring meter and/or readings to your appointments [facility] Not available 05/14/2014 19:51:49 08/25/2015 [id number] superintendent terminal goal of Blood Pressure 140 / 90 Not available Not available Not available superintendent terminal goal of Exercise level Not available Not available Not available prison goal of Tobacco Smoking Status Not available Not available Not available 08/25/2015 [id number] Pt advised and agrees to eat a low salt low fat diet; to do moderate exercise (such as walking) 150 minutes per week; to limit alcohol intake (goal of 2 drinks per day or less for men or 1 for woman). and to monitor dietary sodium. Will monitor home blood pressures and bring readings to appointments. [facility] 08/25/2015 21:59:58 Patient Instructions Encounter Date Encounter Id Patient Instructions Last Modified By Organization Details Last Modified Time 05/12/2014 [id number] deciding about u sing medicines to quit smoking phelmuth Not available 05/14/2014 19:52:00 Quitting Tobacco : [facility] available 05/14/2014 19:52:00 low back pain: exercises phelmuth Not available 05/14/2014 19:52:00 exercise program : getting started phelmuth Not available 05/14/2014 19:52:00 high blood press ure: care [facility] Not available 05/14/2014 19:52:00 learning about h igh blood pressure phelmuth Not available 05/14/2014 19:52:00 Starting a Weight-Loss Plan: Care Instructions [facility] Not available 05/14/2014 19:52:00 Nutrition Referr al and Weight Management Follow-up Information [facility] Not available 05/14/2014 19:52:00 Medications were reviewed at this visit and reconciled. Changes in the active medications are reflected in the current medication list and discussed with patient (or caregiver) with instructions for follow up as needed. Printed medication list provided to the patient as part of the visit summary. phelmuth Not available 05/14/2014 19:51:49 11/02/2014 [id number] diverticulitis: care instructions [email or web address] Not available 11/02/2014 10:30:33 learning about diverticulosis and diverticulitis [email or web address] Not available 11/02/2014 10:30:33 PT to FU with PC P in 1 month, beforehand if persistent of worsening pain, fever, vomiting, bloody/black stool. Not available 11/02/2014 10:30:02 05/28/2015 [id number] Colon Cancer Screening [facility] [email or web address] Not available 05/31/2015 15:33:50 learning about c olon cancer [facility] Not available 05/29/2015 12:23:20 To call or retur n for worsening or concerns [email or web address] Not available 05/28/2015 16:41:03 Go to ER if worsening abdominal pain, fever or persistent vomiting. I have reviewed the note and agree with the assessment and plan of care. [facility] Not available 05/29/2015 12:23:21 08/25/2015 [id number] deciding about u sing medicines to quit smoking pheuth Not available 08/25/2015 21:59:57 Quitting Tobacco : Care Instructions [facility] Not available 08/25/2015 21:59:58 gastroesophageal reflux disease (GERD): care instructions [facility] Not available 08/25/2015 21:59:57 learning about h igh blood sugar pheuth Not available 08/25/2015 21:59:57 fatigue: care instructions [facility] Not available 08/25/2015 21:59:57 [facility] 08/25/2015 21:59:57 learning about c olon cancer pheuth Not available 08/25/2015 21:59:57 high blood press ure: care instructions [facility] Not available 08/25/2015 21:59:57 learning about h igh blood pressure [facility] Not available 08/25/2015 21:59:57 Starting a Weight-Loss Plan: Care Instructions [facility] Not available 08/25/2015 21:59:57 Nutrition Referr al and Weight Management Follow-up Information [facility] Not available 08/25/2015 21:59:57 Continue to emi tor home blood pressures and bring to next appointment. [facility] Not available 08/25/2015 10:11:42 Medications were reviewed at this visit and reconciled. Changes in the active medications are reflected in the current medication list and discussed with patient (or caregiver) with instructions for follow up as needed. Printed medication list provided to the patient as part of the visit summary. 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 for Body mass index 30+ - obesity Referring Physician: Ryan Bustos, Internal Medicine, Encounter Date: 05/12/2014 Referring Physician: Ryan dean, Internal Medicine, Encounter Date: 08/25/2015 Tech Ed/Woodshop Teacher/dietitian Refer ral for Body mass index [...] DO Not Attach Compendium, Do Not Delete/merge, [id number] 08/25/2015 09:20:03 08/25/19 16 08/25/2015 elect rocar diogr am QRS Not Available In-Office Order Internal Use Only DO Not Attach Compendium DO Not Attach Compendium, Do Not Delete/merge, [id number] 08/25/2015 09:20:03 08/25/19 16 08/25/2015 elect rocar diogr am NC Interval Not Available In-Off ice Order Internal Use Only DO Not Attach Compendium DO Not Attach Compendium, Do Not Delete/merge, [id number] 08/25/2015 09:20:03 08/25/19 16 08/25/2015 elect rocar diogr am QRS Duration Not Available In-Of fice Order Internal Use Only DO Not Attach Compendium DO Not Attach Compendium, Do Not Delete/merge, [id number] 08/25/2015 09:20:03 08/25/19 16 08/25/2015 elect rocar diogr am QT Interval Not Available In-Off ice Order Internal Use Only DO Not Attach Compendium DO Not Attach Compendium, Do Not Delete/merge, [id number] 08/25/2015 09:20:03 05/12/20 14 05/12/2014 lipid panel , serum cholesterol, total 154 mg/dL (<200) Not Available [facility] (Centralized Electronic Ordering - All Locations) Patient Can Go To The Location Of Their Choice, [id number] 05/25/2014 15:11:14 05/12/20 14 05/12/2014 lipid panel , serum triglyceride 118 mg/dL (<150) Not Available [facility] (Centralized Electronic Ordering - All Locations) Patient Can Go To The Location Of Their Choice, [id number] 05/25/2014 15:11:14 05/12/20 14 05/12/2014 lipid panel , serum HDL chol 45 mg/dL (>39) Not Available [facility] (Centralized Electronic Ordering - All Locations) Patient Can Go To The Location Of Their Choice, [id number] 05/25/2014 15:11:14 05/12/20 14 05/12/2014 lipid panel , serum LDL cholesterol, calculated 85 mg/dL (0-130 ) Not Available [facility] (Centralized Electronic Ordering - All Locations) Patient Can Go To The Location Of Their Choice, [id number] 05/25/2014 15:11:14 05/12/20 14 05/12/2014 lipid panel , serum non HDL cholesterol (calc) 109 mg/dL (<160) Not Available [facility] (Centralized Electronic Ordering - All Locations) Patient Can Go To The Location Of Their Choice, [id number] 05/25/2014 15:11:14 05/12/20 14 05/12/2014 BMP, serum or plasm a glucose 89 mg/dL (70-99 ) Not Available [facility] (Centralized Electronic Ordering - All Locations) Patient Can Go To The Location Of Their Choice, [id number] 05/25/2014 15:11:13 05/12/20 14 05/12/2014 BMP, serum or plasm a BUN 21 mg/dL (6-20) high Not Available [facility] (Centralized Electronic Ordering - All Locations) Patient Can Go To The Location Of Their Choice, [id number] 05/25/2014 15:11:13 05/12/20 14 05/12/2014 BMP, serum or plasm a creatinine 1.1 mg/dL (0.7-1 .2) Not Available [facility] (Centralized Electronic Ordering - All Locations) Patient Can Go To The Location Of Their Choice, [id number] 05/25/2014 15:11:13 05/12/20 14 05/12/2014 BMP, serum or plasm a sodium 140 mmol/ L (133-1 45) Not Available [facility] (Centralized Electronic Ordering - All Locations) Patient Can Go To The Location Of Their Choice, [id number] 05/25/2014 15:11:13 05/12/20 14 05/12/2014 BMP, serum or plasm a potassium 4.3 mmol/ L (3.6-5 .2) Not Available [facility] (Centralized Electronic Ordering - All Locations) Patient Can Go To The Location Of Their Choice, [id number] 05/25/2014 15:11:13 05/12/20 14 05/12/2014 BMP, serum or plasm a chloride 99 mmol/ L (98-10 7) Not Available [facility] (Centralized Electronic Ordering - All Locations) Patient Can Go To The Location Of Their Choice, [id number] 05/25/2014 15:11:13 05/12/20 14 05/12/2014 BMP, serum or plasm a bicarbonate 30 mmol/ L (22-29 ) high Not Available [facility] (Centralized Electronic Ordering - All Locations) Patient Can Go To The Location Of Their Choice, [id number] 05/25/2014 15:11:13 05/12/20 14 05/12/2014 BMP, serum or plasm a anion gap 11 (4-17) Not Available [facility] (Centralized Electronic Ordering - All Locations) Patient Can Go To The Location Of Their Choice, [id number] 05/25/2014 15:11:13 05/12/20 14 05/12/2014 BMP, serum or plasm a calcium 9.9 mg/dL (8.6-1 0.5) Not Available [facility] (Centralized Electronic Ordering - All Locations) Patient Can Go To The Location Of Their Choice, [id number] 05/25/2014 15:11:13 05/12/20 14 05/12/2014 BMP, serum [...] Go To The Location Of Their Choice, [id number] 05/25/2014 15:11:13 05/12/20 14 05/12/2014 BMP, serum [...] lópez am No observ ation record ed. [facility] Not Available 2015 09:41:39 Result Notes None recorded. Problems Name Problem SNOMED Code Status Onset Date Resolution Date Notes Provider Name and Address Organization Details Recorded Time Body mass index 30+ - obesity 936883041 [facility] Low back pain 978393760 [facility] 09:[facility] Divertic ulitis of colon 272850588 [facility] 09:33:55 Fatigue 72652609 [facility] 6 09:33:[facility] Hypergly cemia 30572691 [facility] 09:[facility] Administ ration of bacteria l and viral vaccine Completed 200702/19/2014 RECORDED 03/31/20 08 7:18AM BY HIEN MANNING MA, OFFICE VISIT [facility] 09:[facility] Administ ration of bacteria l and viral vaccine Completed 200702/20/2014 RECORDED 03/31/20 08 7:18AM BY HIEN MANNING MA, OFFICE VISIT [facility] 6 09[facility]33:[facility] Administ ration of [...] LETTY FU ON/ADDEN DUM Hien Rivera-BLAYNE Humphrey, [facility] 6 09:33:55 General examinat ion of patient Completed 200701/27/2014 RECORDED 07/14/20 08 7:03AM BY LETTY FU ON/ADDEN DUM BLAYNE Hurtado, [facility] 6 09:33:55 Closed fracture of lower end of radius AND ulna 13850400 Completed 200802/19/2014 RECORDED 05/20/20 09 8:20AM BY RYAN BUSTOS MD, ANNOTJEANNIE ON/ADDEN DUM [facility] 6 09:33:[facility] Disorder of kidney and/or ureter 584114997 Completed 200802/19/2014 IMPRESSI ON: CREATINI NE 1.4 (11/2006) ; RECORDED 05/20/20 09 8:20AM BY RYAN BUSTOS MD, ANNOTATI ON/ADDEN DUM BLAYNE Hurtado, [facility] 6 09:33:55 Edema 582761989 Completed 200802/19/2014 RECORDED 05/20/20 09 7:44AM BY HIEN MANNING MA, ANNOTATI ON/ADDEN DUM Hien BLAYNE Talbot, [facility] 6 09:33:55 Closed fracture of lower end of radius AND ulna 66956434 Completed 200802/20/2014 RECORDED 05/20/20 09 8:20AM BY RYAN BUSTOS MD, ANNOTATI ON/ADDEN DUM Hien Rivera-BLAYNE Humphrey, [facility] 6 09:33:55 Disorder of kidney and/or ureter 688720470 Completed 200802/20/2014 IMPRESSI ON: CREATINI NE 1.4 (11/2006) ; RECORDED 05/20/20 09 8:20AM BY RYAN BUSTOS MD, ANNOTATI ON/ADDEN DUM [facility] 09:[facility] Edema 491229586 Completed 200802/20/2014 RECORDED 05/20/20 09 7:44AM BY HIEN MANNING MA, ANNOTATI ON/ADDEN DUM [facility] 6 09:33:55 Carpal tunnel syndrome 32332871 Completed 200801/27/2014 RECORDED 05/20/20 09 8:20AM BY RYAN BUSTOS MD, ANNOTATI ON/ADDEN DUM [facility] 6 09:33:55 Closed fracture of lower end of radius AND ulna 87817718 Completed 200801/27/2014 RECORDED 05/20/20 09 8:20AM BY RYAN BUSTOS MD, ANNOTATI ON/ADDEN DUM [facility] 6 09:33:[facility] Disorder of kidney and/or ureter 835886149 Completed 200801/27/2014 IMPRESSI ON: CREATINI NE 1.4 (11/2006) ; RECORDED 05/20/20 09 8:20AM BY RYAN BUSTOS MD, ANNOTATI ON/ADDEN DUM BLAYNE Hurtado, [facility] 6 09:33:55 Edema 406751903 Completed 200801/27/2014 RECORDED 05/20/20 09 7:44AM BY HIEN MANNING MA, ANNOTJEANNIE ON/ADDEN DUM BLAYNE Hurtado, [facility] 6 09:33:55 Influenz a vaccine needed [id number] 06 Completed 201102/19/2014 RECORDED 03/19/20 12 8:37AM BY NADYA CAMILO, OFFICE VISIT BLAYNE Hurtado, [facility] 6 09:33:55 Follow-u p encounte r Completed 201102/19/2014 RECORDED 03/19/20 12 8:24AM BY LETTY LUNA ON/ADDEN DUM BLAYNE Hurtado, [facility] 6 09:33:55 Epidermo id cyst of skin 845372611 Completed 201102/19/2014 RECORDED 03/19/20 12 8:24AM BY LETTY LUNA ON/ADDEN DUM BLAYNE Hurtado, [facility] 6 09:33:55 Tobacco user [id number] Completed 201102/19/2014 RECORDED 03/19/20 12 8:24AM BY LETTY LUNA/ADDEN DUM BLAYNE Hurtado, [facility] 6 09:33:55 Sprain of foot 98603525 Completed 201102/19/2014 RECORDED 03/19/20 12 8:24AM BY LETTY LUNA ON/ADDEN DUM BLAYNE Hurtado, [facility] 6 09:33:55 Influenz a vaccine needed [id number] 06 Completed 201102/20/2014 RECORDED 03/19/20 12 8:37AM BY NADYA CAMILO, OFFICE VISIT BLAYNE Hurtado, [facility] 6 09:33:55 Follow-u p encounte r Completed 201102/20/2014 RECORDED 03/19/20 12 8:24AM BY LETTY LUNA ON/ADDEN DUM BLAYNE Hurtado, [facility] 6 09:33:55 Epidermo id cyst of skin 672857209 Completed 201102/20/2014 RECORDED 03/19/20 12 8:24AM BY LETTY LUNA ON/ADDEN DUM BLAYNE Hurtado, [facility] 6 09:33:55 Tobacco user [id number] Completed 201102/20/2014 RECORDED 03/19/20 12 8:24AM BY LETTY LUNA ON/ADDEN DUM BLAYNE Hurtado, [facility] 6 09:33:55 Sprain of foot 60101101 Completed 201102/20/2014 RECORDED 03/19/20 12 8:24AM BY LETTY LUNA ON/ADDEN DUM BLAYNE Hurtado, [facility] 6 09:33:55 Influenz a vaccine needed [id number] 06 Completed 201101/27/2014 RECORDED 03/19/20 12 8:37AM BY NADYA CAMILO, OFFICE VISIT BLAYNE Hurtado, [facility] 6 09:33:55 Follow-u p encounte r Completed 201101/27/2014 RECORDED 03/19/20 12 8:24AM BY LETTY LUNA ON/ADDEN DUM BLAYNE Hurtado, [facility] 6 09:33:55 Epidermo id cyst of skin 578146742 Completed 201101/27/2014 RECORDED 03/19/20 12 8:24AM BY LETTY LUNA ON/ADDEN DUM BLAYNE Hurtado, [facility] 6 09:33:55 Tobacco user [id number] Completed 201101/27/2014 RECORDED 03/19/20 12 8:24AM BY LETTY LUNA ON/ADDEN DUM BLAYNE Hurtado, [facility] 6 09:33:55 History of clinical finding in subject 665611806 Active 2011 BLAYNE Hurtado, [facility] 6 09:33:55 Sprain of foot 07394033 Completed 201101/27/2014 RECORDED 03/19/20 12 8:24AM BY LETTY LUNA ON/ADDEN DUM BLAYNE Hurtado, [facility] 6 09:33:55 Sprains and strains of joints and adjacent muscles Completed 201102/19/2014 RECORDED 04/23/20 12 9:33AM BY DIXON HOLLAND MA, LETTY ON/ADDEN DUM BLAYNE Hurtado, [facility] 6 09:33:55 Chest pain 07395989 Completed 201102/19/2014 RECORDED 04/23/20 12 9:33AM BY DIXON HOLLAND MA, LETTY ON/ADDEN DUM BLAYNE Hurtado, [facility] 6 09:33:55 Adult health examinat ion Completed 201102/19/2014 RECORDED 04/23/20 12 9:33AM BY DIXON HOLLAND MA, ANNOTATI ON/ADDEN DUM BLAYNE Hurtado, [facility] 6 09:33:55 Hyperhid rosis 765928056 Completed 201102/19/2014 RECORDED 04/23/20 12 9:33AM BY DIXON HOLLAND MA, ANNOTATI ON/ADDEN DUM Hien Nicole-M BLAYNE rico null, [facility] 6 09:33:55 Sprains and strains of joints and adjacent muscles Completed 201102/20/2014 RECORDED 04/23/20 12 9:33AM BY DIXON HOLLAND MA, ANNOTJEANNIE ON/ADDEN DUM Hien Nicole-M BLAYNE rico, [facility] 6 09:33:55 Chest pain 98974937 Completed 201102/20/2014 RECORDED 04/23/20 12 9:33AM BY DIXON HOLLAND MA, ANNOTJEANNIE ON/ADDEN DUM Hien Nicole-M BLAYNE rico, [facility] 6 09:33:55 Adult health examinat ion Completed 201102/20/2014 RECORDED 04/23/20 12 9:33AM BY DIXON HOLLAND MA, ANNOTJEANNIE ON/ADDEN DUM Hien Nicole-M BLAYNE rico, [facility] 6 09:33:55 Hyperhid tomis 980060467 Completed 201102/20/2014 RECORDED 04/23/20 12 9:33AM BY DIXON HOLLAND MA, ANNOTJEANNIE ON/ADDEN DUM Hien Nicole-M BLAYNE rico, [facility] 6 09:33:55 Sprains and strains of joints and adjacent muscles Completed 201101/27/2014 RECORDED 04/23/20 12 9:33AM BY DIXON HOLLAND MA, ANNOTJEANNIE ON/ADDEN DUM Hien Nicole-M BLAYNE rico, [facility] 6 09:33:55 Chest pain 65086640 Completed 201101/27/2014 RECORDED 04/23/20 12 9:33AM BY DIXON HOLLAND MA, ANNOTATI ON/ADDEN DUM Hien Nicole-M BLAYNE rico, [facility] 6 09:33:55 Adult health examinat ion Completed 201101/27/2014 RECORDED 04/23/20 12 9:33AM BY DIXON HOLLAND MA, ANNOTATI ON/ADDEN DUM Hien Nicole-M BLAYNE rcio, [facility] 6 09:33:55 Hyperhid rosis 993931845 Completed 201101/27/2014 RECORDED 04/23/20 12 9:33AM BY DIXON HOLLAND MA, ANNOTATI ON/ADDEN DUM Hien Nicole-M BLAYNE rico, [facility] 6 09:33:55 Hypersom donis 45280646 Completed 201102/19/2014 RECORDED 06/18/20 12 7:23AM BY JERAMIE MUNIZ I, ANNOTATI ON/ADDEN DUM Hien Nicole-M BLAYNE rico, [facility] 6 09:33:55 Hypersom donis 35160601 Completed 201102/20/2014 RECORDED 06/18/20 12 7:23AM BY JERAMIE MUNIZ I ANNOTATI ON/ADDEN DUM Hien Nicole-M BLAYNE rico, [facility] 6 09:33:55 Hypersom donis 89057136 Completed 201101/27/2014 RECORDED 06/18/20 12 7:23AM BY JERAMIE MUNIZ I, ANNOTATI ON/ADDEN DUM Hien Nicole-M BLAYNE rico, [facility] 6 09:33:55 Bicipita l tenosyno vitis 41957751 Completed 201202/19/2014 IMPRESSI ON: AT ATTACHME NT AT ELBOW. CONTINUE ALEVE; RECORDED 10/24/19 13 10:00AM BY HIEN MANNING MA, ANNOTATI ON/ADDEN DUM Hien BLAYNE Talbot, [facility] 6 09:33:55 Bicipita l tenosyno vitis 57350213 Completed 201202/20/2014 IMPRESSI ON: AT ATTACHME NT AT ELBOW. CONTINUE ALEVE; RECORDED 10/24/19 13 10:00AM BY HIEN MANNING MA, ANNOTJEANNIE ON/ADDEN DUM BLAYNE Hurtado, [facility] 6 09:33:55 Bicipita l tenosyno vitis 45234849 Completed 201201/27/2014 IMPRESSI ON: AT ATTACHME NT AT ELBOW. CONTINUE ALEVE; RECORDED 10/24/19 13 10:00AM BY HIEN MANNING MA, ANNOTJEANNIE ON/ADDEN DUM Hien BLAYNE Talbot, [facility] 6 09:33:55 Hypercho lesterol emia 65322771 Completed 201202/19/2014 RECORDED 11/26/19 13 1:46PM BY DIXON HOLLAND MA, ANNOTATI ON/ADDEN DUM Hien BLAYNE Talbot, [facility] 6 09:33:54 Renewal of prescrip tion Completed 201202/19/2014 RECORDED 11/26/19 13 1:46PM BY DIXON HOLLAND MA, ANNOTATI ON/ADDEN DUM Hien BLAYNE Talbot, [facility] 6 09:33:55 Hypercho lesterol emia 05829024 Completed 201202/20/2014 RECORDED 11/26/19 13 1:46PM BY DIXON HOLLAND MA, ANNOTJEANNIE ON/ADDEN DUM Hien BLAYNE Talbot, [facility] 6 09:33:54 Renewal of prescrip tion Completed 201202/20/2014 RECORDED 11/26/19 13 1:46PM BY DIXON HOLLAND MA, ANNOTATI ON/ADDEN DUM BLAYNE Hurtado, [facility] 6 09:33:55 Hypercho lesterol emia 33564742 Completed 201201/27/2014 RECORDED 11/26/19 13 1:46PM BY DIXON HOLLAND MA, ANNOTATI ON/ADDEN DUM BLAYNE Hurtado, [facility] 6 09:33:54 Renewal of prescrip tion Completed 201201/27/2014 RECORDED 11/26/19 13 1:46PM BY DIXON HOLLAND MA, ANNOTATI ON/ADDEN DUM BLAYNE Hurtado, [facility] 6 09:33:55 Carpal tunnel syndrome 02470986 Active 2013 BLAYNE Hurtado, [facility] 6 09:33:55 Acute prostati tis 04503252 Active 2013 IMPRESSI ON: WE DISCUSSE D [...] Hurtado, [facility] 6 09:33:55 Biliuria 28563061 Active 2013 BLAYNE Hurtado, [facility] 6 09:33:55 Chronic tension- type headache 055722563 Active 2013 BLAYNE Hurtado, [facility] 6 09:33:55 Depressi ve disorder 06775369 Active 2013 BLAYNE Hurtado, [facility] 6 09:33:55 Gastroes ophageal reflux disease 478139813 Active 2013 BLAYNE Hurtado, [facility] 6 09:33:55 Malaise and fatigue 600873009 Active 2013 BLAYNE Hurtado, [facility] 6 09:33:55 Hyperlip idemia 74812927 Active 2013 BLAYNE Hurtado, [facility] 6 09:33:54 Essentia l hyperten duglas 14494545 Active 2013 BLAYNE Hurtado, [facility] 6 09:33:55 Insomnia 369398058 Active 2013 BLAYNE Hurtado, [facility] 6 09:33:55 Fibromyo sitis 25306271 Active 2013 BLAYNE Hurtado, [facility] 6 09:33:55 Obesity 728673340 Active 2013 STORY: RECENT INCREASE IN HIS WEIGHT.; RECORDED 01/10/20 14 1:21PM BY HIEN MANNING MA, OFFICE VISIT BLAYNE Hurtado, [facility] 6 09:33:55 Proteinu brandon 26118084 Active 2013 BLAYNE Hurtado, [facility] 6 09:33:55 Psychose xual dysfunct ion associat ed with inhibite d libido 824577609 Active 2013 BLAYNE Hurtado, [facility] 6 09:33:55 Tobacco dependen ce syndrome 22019981 Active 2013 BLAYNE Hurtado, [facility] 6 09:33:55 Problem Notes None recorded. Procedures Surgical History Date Name Laterality Status Provider Name and Address Organization Details Recorded Time 6 Colonoscopy completed Analisa Jamesutmona [facility] 12/06/2015 16:58:34 3 Vasectomy completed [facility] 05/12/2014 08:16:32 5 Circumcision completed [facility] 05/12/2014 08:16:32 Imaging Results None recorded. Procedure Notes None recorded. Medical Equipment None Reported. Allergies Allergen ID Allergen Name Allergen Category Reaction Reaction Severity Criticality Documentation Date Start Date Code Code System Note Provider Name and Address Organization Details Recorded Time 1997 aspirin medicatio n nausea Not available Not available 01/27/2014 1191 RxNorm Pat Lemos, [place] [address] [facility] [address], [place], [address], [facility] 5 16:39:27 Medications Name Sig Start Date [...] Available Not Available Elastic Wrist Splint Support [facility], DX: CARPAL TUNNEL SYNDROME 12/19 completed RECORDED [...] Updated DateTime 6 171.45 cm 36.3 kg/m2 386257. 35652 g 97 % 97 % 88 /min 98.1 [degF] 134/82 mm[Hg] Hien rico MA [facility] [place] [place] 6 09:20:03 Date Recorded Oxygen saturation Oxygen saturation in Arterial blood by Pulse oximetry Body weight Heart rate Body mass index (BMI) Body height Body temperature Systolic And Diastolic Provider Name and Address Organization Details Last Updated DateTime 5 96 % 96 % 910413. 52603 g 80 /min 36.1 kg/m2 171.45 cm 97.9 [degF] 110/70 mm[Hg] Elsa Conrad [facility] 5 09:52:32 Date Recorded Oxygen saturation Oxygen saturation in Arterial blood by Pulse oximetry Body weight Body temperature Heart rate Body mass index (BMI) Body height Systolic And Diastolic Provider Name and Address Organization Details Last Updated DateTime 4 97 % 97 % 13398.6 5874 g 98.1 [degF] 64 /min 31.2 kg/m2 171.45 cm 115/74 mm[Hg] Dixon Holland [facility] 4 08:21:21 Date Recorded Body weight Oxygen saturation Oxygen saturation in Arterial blood by Pulse oximetry Body height Body mass index (BMI) Body temperature Heart rate Systolic And Diastolic Provider Name and Address Organization Details Last Updated DateTime 5 429335. 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 Information not available 08/25/2015 Do you have [...] Recorded Time Tdap 8 completed Not Available [facility] 01/27/2014 13:31:33 Influenza, split virus, trivalent, preservative 2 completed Not Available [facility] 01/27/2014 13:31:33 Influenza, split virus, trivalent, PF 4 completed Not Available [facility] 08/02/2019 02:21:57 Past Encounters Encounter ID Performer Location Encounter Start Date Encounter Closed Date Diagnosis/Indication Diagnosis SNOMED-CT Code Diagnosis ICD10 Code Diagnosis IMO Codes Diagnosis Note [id number] auto[facility]Comm erce [address] [facility] [place] [address] 11/14/2006 00:00:00 [id number] autoEComm erce [address] [facility] [place] [address] 03/31/2008 00:00:[id number] [facility] [address] [place] [address] 07/14/2008 00:00:00 [id number] autoEComm erce [address] [facility] [place] [address] 09/23/2008 00:00:00 [id number] [place] [address] 10/09/2008 00:00:00 [id number] [place] [address] 10/29/2008 00:00:00 [id number] [address] [place] [address] 12/24/2008 00:00:00 [id number] [place] [address] 02/01/2009 00:00:00 [id number] [address] [place] [address] 05/20/2009 00:00:[id number] [facility] [address] [place] [address] 08/26/2009 00:00:00 [id number] autoEComm erce [address] [facility] [place] [address] 09/30/2009 00:00:[id number] [facility] [address] [place] [address] 12/22/2009 00:00:[id number] [facility] [address] [place] [address] 01/24/2010 00:00:00 [id number] [address]Comm er[address] [place] [address] 06/07/2010 00:00:00 [id number] [address] [place] [address] 08/30/2010 00:00:00 [id number] autoEComm erce [address] [place] [address] 11/21/2011 00:00:00 [id number] [address] [place] [address] 03/19/2012 00:00:00 [id number] autoEComm erce [address] [facility] [place], [place] [address] 04/23/2012 00:00:00 [id number] autoEComm erce [address] [facility] [place], [place] [address] 06/18/2012 00:00:00 [id number] autoEComm erce [address] [facility] [place], [place] [address] 08/19/2012 00:00:00 [id number] autoEComm erce [address] [facility] [place], [place] [address] 11/25/2012 00:00:00 [id number] autoEComm erce [address] [facility] [place], [place] [address] 01/09/2014 00:00:00 [id number] Ryan Bustos MD Main Office [address] [address] [place], [place] [address] 05/12/2014 08:03:54 05/12/2014 09:32:08 Adult health examination 692741384 Needs infl uenza immunization 636636953 Body mass index 30+ - obesity 006363871 Tobacco de pendence syndrome 69309650 Essential hypertension 45844645 Low back pain 975830634 Hyperlipidemia 95754506 [id number] Lesa Corral BANNERALONDRA Main Office [address] [address] [place], [place] [address] 11/02/2014 09:42:42 11/02/2014 10:19:22 Diverticulitis of colon 390075569 symptomati c improvemen t on abx, complete course of antibiotic [id number] DANIS Bah Main Office [address] [address] [place], [place] [address] 05/28/2015 16:19:08 05/28/2015 16:57:55 Diverticulitis of colon 606512374 K57.32 Patient w/ hx diverticul itis via [...] plan. Screening for malignant neoplasm of colon 236497075 Z12.11 [id number] Ryan Bustos MD Main Office [address] [facility] [address] [place] [address] 08/25/2015 09:09:08 08/25/2015 10:14:52 Essential hypertension 18041336 I10 Screening for malignant neoplasm of colon 753541914 Z12.11 Hyperglycemia 36240326 R 73.9 Hyperlipidemia 01427583 E78.5 Malaise and fatigue 2717 41692 R53.83 Tobacco de pendence syndrome 88430903 F17.290 Gastroesop hageal reflux disease 352154818 K21.9 Body mass index 30+ - obesity 812120636 Z68.36 Health Concerns Section Related Observation LastModified by Organization Detai ls LastModified Time None Recorded Concern Status LastModified by Organization Details LastModified Time None Recorded Advance Directives Directive N: Payers Insurance Date Sequence Insurance Name Policy Number Policy Salazar Covered Member ID Salazar Member ID Guarantor Name 06/07/2021 1 [facility] ([facility] [id number] Ross Morel [facility] [id number] Ross stacy 10/07/2021 1 [facility] ([facility] [id number] Ross Briggs [id number] Ross stacy Notes Date Note Type Note [...] andno cardiovascular disease. Ryan Bustos MD [address] [facility] [address], [place], [address], [facility] 05/14/2014 19:52:01 11/02/2014 text/html H/o LLQ abdominal pain started 3 days ago while visiting family in [place], progressively worsened within 2 hours. He went [...] tolerating PO fluids. Ryan Bustos MD [address] [facility] [address], [place], [address], [facility] [place] 11/02/2014 12:34:39 05/28/2015 text/html Abdominal PainRe [...] bout of divertic. Ryan Bustos MD [address] [address], [place], [address], [facility] 05/29/2015 12:23:22 08/25/2015 text/html Hypertension F/UReported by [...] because of distressing dreams. Ryan Bustos MD [address] [facility] [address], [place], [address], [facility] [place] 08/25/2015 22:00:19
--- OUTSIDE RECORDS SUMMARY | 2025-05-15 11:22 | XMS_ITS | Encounter Summary ---
Author Organization [facility] Address [address] [place] [address] Care Team Providers Care Cover Remover Name Role Phone Orlin Chambers MD Primary Care Provider [phone] Reason for Visit * Reason Comments Medication Refill Encounter Details Date Type Department Care Team (Late st Contact Info) Description 04/12/[address] [facility] [address] [address] Orlin Chambers MD 100 [facility] [address] 203 [place], [place] [phone] Insomnia, unspecified type Social History Tobacco Use [...] type documented in this encounter Care Teams Cover Remover Relationship Specialty Start Date End Date Orlin Chambers MD 100 [place] [address] PCP - General Family Medicine 01/29/19 08/16/23 Juma Harrington [facility] Pulmonary Disease 11/23/21 documented as of this encounter
--- OUTSIDE RECORDS SUMMARY | 2025-05-15 11:22 | XMS_ITS | Encounter Summary ---
Author Organization [facility] Address [address] [place] [address] Care Team Providers Care Principal Gifts Officer Name Role Phone Orlin Chambers MD Primary Care Provider [phone] Reason for Visit * Reason Onset Date Comments Medication Refill 04/12/2023 Encounter Details Date Type Department Care Team (Late st Contact Info) Description 04/12/2023 Refill [facility] [address] [place] [address] 203 [place] [address] Orlin Chambers MD 100 [facility] [address] 203 [place], [place] [phone] Insomnia, unspecified type Social History Tobacco Use [...] documented in this encounter Care Teams Principal Gifts Officer Relationship Specialty Start Date End Date Orlin Chambers MD 100 [place] [address] PCP - General Family Medicine 01/29/19 08/16/23 Juma Harrington [facility] Pulmonary Disease 11/23/21 documented as of this encounter
--- OUTSIDE RECORDS SUMMARY | 2025-05-15 11:22 | XMS_ITS | Encounter Summary ---
Author Organization [facility] Address [address] [place] [address] Care Team Providers Care Lay Out Technician Name Role Phone Orlin Chambers MD Primary Care Provider [phone] Encounter Details Date Type Department Care Team [...] on filedocumented in this encounter Care Teams Lay Out Technician Relationship Specialty Start Date End Date Orlin Chambers MD [address] [place] [address] PCP - General Family Medicine 01/29/19 08/16/23 Juma Harrington [facility] Pulmonary Disease 11/23/21 documented as of this encounter
--- OUTSIDE RECORDS SUMMARY | 2025-05-15 11:22 | XMS_ITS | Encounter Summary ---
Author Organization [facility] Address [address] [place] [address] Care Team Providers Care Rheumatology Specialist Name Role Phone Orlin Chambers MD Primary Care Provider [phone] Reason for Visit * Reason Onset Date Comments Medication Refill 11/13/2022 Encounter Details Date Type Department Care Team (Late st Contact Info) Description 11/13/2022 Refill [facility] [address] [place] [address] 203 [place] [address] Orlin Chambers MD 100 [facility] [address] 203 [place], [place] [phone] Insomnia, unspecified type Social History Tobacco Use [...] type documented in this encounter Care Teams Rheumatology Specialist Relationship Specialty Start Date End Date Orlin Chambers MD 100 [place] [address] PCP - General Family Medicine 01/29/19 08/16/23 Juma Harrington [facility] Pulmonary Disease 11/23/21 documented as of this encounter
--- OUTSIDE RECORDS SUMMARY | 2025-05-15 11:22 | XMS_ITS | Encounter Summary ---
Author Organization [facility] Address [address] [place] [address] Care Team Providers Care Hims Clerk Name Role Phone Orlin Chambers MD Primary Care Provider [phone] Reason for Visit * Reason Comments Medication Refill Encounter Details Date Type Department Care Team (Late st Contact Info) Description 10/09/2022 Refill [facility] [place] [facility] 10 100 [facility] [address] [place] [address] Anayeli Del Rosario APRN 100 [facility] [address] [place], [place] [phone] Anxiety Social History Tobacco Use Types Packs/Day [...] unspecified documented in this encounter Care Teams Hims Clerk Relationship Specialty Start Date End Date Orlin Chambers MD 100 [place] [address] PCP - General Family Medicine 01/29/19 08/16/23 Juma Harrintgon [facility] Pulmonary Disease 11/23/21 documented as of this encounter
--- OUTSIDE RECORDS SUMMARY | 2025-05-15 11:22 | XMS_ITS | Encounter Summary ---
Author Organization [facility] Address [address] [place] [address] Care Team Providers Care Helpdesk Administrator Name Role Phone Orlin Chambers MD Primary Care Provider [phone] Encounter Details Date Type Department Care Team (Late st Contact Info) Description 08/29/2022 Scanned Document [facility] ORTHO SURGERY SCAN [place], [facility] [address] [place] [address] Social History Tobacco Use Types Packs/Day Years [...] on filedocumented in this encounter Care Teams Helpdesk Administrator Relationship Specialty Start Date End Date Orlin Chambers MD [address] [place] [address] PCP - General Family Medicine 01/29/19 08/16/23 Juma Harrington [facility] Pulmonary Disease 11/23/21 documented as of this encounter
--- OUTSIDE RECORDS SUMMARY | 2025-05-15 11:22 | XMS_ITS | Encounter Summary ---
Author Organization [facility] Address [address] [place] [address] Care Team Providers Care Wet Press Tender Name Role Phone Orlin Chambers MD Primary Care Provider [phone] Reason for Visit * Reason Comments Medication Refill Encounter Details Date Type Department Care Team (Late st Contact Info) Description 04/10/2023 Refill [facility] [address] [address] Orlin Chambers MD [address] [facility] [address] 203 [place], [place] [phone] Insomnia, unspecified type Social History Tobacco Use [...] type documented in this encounter Care Teams Wet Press Tender Relationship Specialty Start Date End Date Orlin Chambers MD 100 [place] [address] PCP - General Family Medicine 01/29/19 08/16/23 Juma Harrington [facility] Pulmonary Disease 11/23/21 documented as of this encounter
--- OUTSIDE RECORDS SUMMARY | 2025-05-15 11:22 | XMS_ITS | Encounter Summary ---
Author Organization [facility] Address [address] [place] [address] Care Team Providers Care Pipe Fitter Ammonia Name Role Phone Orlin Chambers MD Primary Care Provider [phone] Encounter Details Date Type Department Care Team (Late st Contact Info) Description 10/06/2022 Scanned Document [facility] ORTHO SURGERY SCAN [place], [facility] [address] [place] [address] Social History Tobacco Use Types Packs/Day Years [...] on filedocumented in this encounter Care Teams Pipe Fitter Ammonia Relationship Specialty Start Date End Date Orlin Chambers MD [address] [place] [address] PCP - General Family Medicine 01/29/19 08/16/23 Juma Harrington [facility] Pulmonary Disease 11/23/21 documented as of this encounter
--- OUTSIDE RECORDS SUMMARY | 2025-05-15 11:22 | XMS_ITS | Encounter Summary ---
Author Organization [facility] Address [address] [place] [address] Care Team Providers Care Oil Expeller Operator Name Role Phone Orlin Chambers MD Primary Care Provider Encounter Details Date Type Department Care Team (Late st Contact Info) Description 10/06/2022 Scanned Document [facility] [place] [address] [place] [address] [facility] [address] [address] Social History Tobacco Use Types Packs/Day Years [...] filedocumented in this encounter Care Teams Oil Expeller Operator Relationship Specialty Start Date End Date Orlin Chambers MD [address] [address] PCP - General Family Medicine 01/29/19 08/16/23 Juma Harrington [facility] Pulmonary Disease 11/23/21 documented as of this encounter
--- OUTSIDE RECORDS SUMMARY | 2025-05-15 11:22 | XMS_ITS | Encounter Summary ---
Author Organization [facility] Address [address] [place] [address] Care Team Providers Care Landscape Photographer Name Role Phone Orlin Chambers MD Primary Care Provider [phone] Encounter Details Date Type Department Care Team (Late st Contact Info) Description 09/05/2022 Scanned Document [facility] 10 100 [facility] 203 [place] [address] Orlin Chambers MD 100 [facility] [address] [place] [address] Social History Tobacco Use Types Packs/Day Years [...] on filedocumented in this encounter Care Teams Landscape Photographer Relationship Specialty Start Date End Date Orlin Chambers MD [address] [address] PCP - General Family Medicine 01/29/19 08/16/23 Juma Harrington [facility] Pulmonary Disease 11/23/21 documented as of this encounter
--- OUTSIDE RECORDS SUMMARY | 2025-05-15 11:22 | XMS_ITS | Encounter Summary ---
Author Organization [facility] Address [address] [place] [address] Care Team Providers Care Wet Washer Machine Name Role Phone Orlin Chambers MD Primary Care Provider [phone] Encounter Details Date Type Department Care Team (Late st Contact Info) Description 02/27/2023 Scanned Document [facility] EMERGENCY MED SCAN Emergency Medicine, [...] on filedocumented in this encounter Care Teams Wet Washer Machine Relationship Specialty Start Date End Date Orlin Chambers MD [address] [place] [address] PCP - General Family Medicine 01/29/19 08/16/23 Juma Harrington [facility] Pulmonary Disease 11/23/21 documented as of this encounter
--- OUTSIDE RECORDS SUMMARY | 2025-05-15 11:22 | XMS_ITS | Encounter Summary ---
Author Organization [facility] Address [address] [place] [address] Care Team Providers Care Skin Tanner Name Role Phone Orlin Chambers MD Primary Care Provider [phone] Reason for Visit * Reason Onset Date Comments Medication Refill 04/10/2023 Encounter Details Date Type Department Care Team (Late st Contact Info) Description 04/10/2023 Refill [facility] [address] [place] [address] 203 [place] [address] Orlin Chambers MD 100 [facility] [address] [place], [place] [phone] Insomnia, unspecified type Social History Tobacco Use [...] type documented in this encounter Care Teams Skin Tanner Relationship Specialty Start Date End Date Orlin Chambers MD 100 [place] [address] PCP - General Family Medicine 01/29/19 08/16/23 Juma [facility]ring[facility] Pulmonary Disease 11/23/21 documented as of this encounter
--- OUTSIDE RECORDS SUMMARY | 2025-05-15 11:23 | XMS_ITS | Clinical Summary ---
Author Organization [facility] Address [address] [place] [address] Care Team Providers Care Senior Internet Sales Consultant Name Role Phone Pcp, No MD [...] age to complete this topic Care Teams Senior Internet Sales Consultant Relationship Specialty Start Date End Date PcpVonda MD 263 [place] [address] PCP - General Internal Medicine 02/21/21
--- OUTSIDE RECORDS SUMMARY | 2025-05-15 11:23 | XMS_ITS | Encounter Summary ---
Author Organization [facility] Address [address] [place] [address] Care Team Providers Care Dial Marker Name Role Phone Orlin Chambers MD Primary Care Provider Encounter Details Date Type Department Care Team (Late st Contact Info) Description 06/03/2019 Scanned Document [facility] [address] [address] Provider, Generic Social History Tobacco [...] on filedocumented in this encounter Care Teams Dial Marker Relationship Specialty Start Date End Date Orlin Chambers MD 100 [facility] [address] [place], [place] [phone] PCP - General Family Medicine 01/29/19 08/16/23 Juma Harrington [facility] Pulmonary Disease 11/23/21 documented as of this encounter
--- OUTSIDE RECORDS SUMMARY | 2025-05-15 11:23 | XMS_ITS | Encounter Summary ---
Author Organization [facility] Address [address] [place] [address] Care Team Providers Care Pack Changer Name Role Phone Orlin Chambers MD Primary Care Provider [phone] Reason for Visit * Reason Comments Medication Refill Encounter Details Date Type Department Care Team (Late st Contact Info) Description 08/04/2019 Refill [facility] [address] [address] Orlin Chambers MD 100 [facility] [address] 203 [place], [place] [phone] Insomnia, unspecified type Social History Tobacco Use [...] type documented in this encounter Care Teams Pack Changer Relationship Specialty Start Date End Date Orlin Chambers MD 100 [place] [address] PCP - General Family Medicine 01/29/19 08/16/23 Juma Harrington [facility] Pulmonary Disease 11/23/21 documented as of this encounter
--- OUTSIDE RECORDS SUMMARY | 2025-05-15 11:23 | XMS_ITS | Encounter Summary ---
Author Organization [facility] Address [address] [place] [address] Care Team Providers Care Professor Computer Science Name Role Phone Orlin Chambers MD Primary Care Provider Reason for Visit * Reason Comments Medication Refill Encounter Details Date Type Department Care Team (Late st Contact Info) Description 02/01/2020 Refill [facility] 10 100 [facility] [address] [place] [address] Anayeli Del Rosario, RECREATION ACTIVITIES COORDINATOR 100 [facility] 203 [place], [place] [phone] Anxiety Social History Tobacco Use Types Packs/Day [...] unspecified documented in this encounter Care Teams Professor Computer Science Relationship Specialty Start Date End Date Orlin Chambers MD 100 [place] [address] PCP - General Family Medicine 01/29/19 08/16/23 Juma Harrington [facility] Pulmonary Disease 11/23/21 documented as of this encounter
--- OUTSIDE RECORDS SUMMARY | 2025-05-15 11:23 | XMS_ITS | Encounter Summary ---
Author Organization [facility] Address [address] [place] [address] Care Team Providers Care Stamping Bench Die Maker Name Role Phone Orlin Chambers MD Primary Care Provider [phone] Reason for Visit * Reason Comments Medication Refill Encounter Details Date Type Department Care Team (Late st Contact Info) Description 09/12/2019 Refill [facility] 10 100 [facility] [address] [place] [address] Anayeli Del Rosario, CELL TUBER MACHINE 100 [facility] [address] [place], [place] [phone] Anxiety Social History Tobacco Use Types Packs/Day [...] unspecified documented in this encounter Care Teams Stamping Bench Die Maker Relationship Specialty Start Date End Date Orlin Chabmers MD 100 [place] [address] PCP - General Family Medicine 01/29/19 08/16/23 Juma Harrington [facility] Pulmonary Disease 11/23/21 documented as of this encounter
--- OUTSIDE RECORDS SUMMARY | 2025-05-15 11:23 | XMS_ITS | Encounter Summary ---
Author Organization [facility] Address [address] [place] [address] Care Team Providers Care Pit Recorder Name Role Phone Orlin Chambers MD Primary Care Provider Encounter Details Date Type Department Care Team (Late st Contact Info) Description 05/25/2019 Scanned Document [facility] Pulmonary and Critical Care- [address] [address] Kelly Bustillo MD [address] [place] [address] Social History Tobacco Use Types Packs/Day Years [...] filedocumented in this encounter Care Teams Pit Recorder Relationship Specialty Start Date End Date Orlin Chambers MD [address] [place] [address] PCP - General Family Medicine 01/29/19 08/16/23 Juma Harrington [facility] Pulmonary Disease 11/23/21 documented as of this encounter
--- OUTSIDE RECORDS SUMMARY | 2025-05-15 11:23 | XMS_ITS | Encounter Summary ---
Author Organization [facility] Address [address] [place] [address] Care Team Providers Care Solidworks Drafter Name Role Phone Orlin Chambers MD Primary Care Provider [phone] Encounter Details Date Type Department Care Team (Late st Contact Info) Description 09/08/2020 Scanned Document [facility] [address] [place] [address] Provider, External, [address] [place] [address] Social History Tobacco Use Types Packs/Day Years [...] on filedocumented in this encounter Care Teams Solidworks Drafter Relationship Specialty Start Date End Date Orlin Chambers MD 100 [place] [address] PCP - General Family Medicine 01/29/19 08/16/23 Juma Harrington [facility] Pulmonary Disease 11/23/21 documented as of this encounter
--- OUTSIDE RECORDS SUMMARY | 2025-05-15 11:23 | XMS_ITS | Encounter Summary ---
Author Organization [facility] Address [address] [place] [address] Care Team Providers Care Marketing Data Specialist Name Role Phone Orlin Chambers MD Primary Care Provider [phone] Encounter Details Date Type Department Care Team (Late st Contact Info) Description 01/30/2023 Scanned Document [facility] ORTHO SURGERY SCAN [place] [address] [place] [address] Social History Tobacco Use Types Packs/Day Years [...] on filedocumented in this encounter Care Teams Marketing Data Specialist Relationship Specialty Start Date End Date Orlin Chambers MD [address] [place] [address] PCP - General Family Medicine 01/29/19 08/16/23 Juma Harrington [facility] Pulmonary Disease 11/23/21 documented as of this encounter
--- OUTSIDE RECORDS SUMMARY | 2025-05-15 11:23 | XMS_ITS | Encounter Summary ---
Author Organization [facility] Address [address] [place] [address] Care Team Providers Care Refrigeration Technician Name Role Phone Orlin Chambers MD Primary Care Provider [phone] Reason for Visit * Reason Comments Medication Refill Encounter Details Date Type Department Care Team (Late st Contact Info) Description 11/04/2019 Refill [facility] 10 100 [facility] [address] [place] [address] Anayeli Del Rosario, PEN RULER OPERATOR 100 [facility] Liam [address] [place], [place] [id number] Anxiety Social History Tobacco Use Types Packs/Day [...] unspecified documented in this encounter Care Teams Refrigeration Technician Relationship Specialty Start Date End Date Orlin Chambers MD [address] [address] PCP - General Family Medicine 01/29/19 08/16/23 Juma Harrington [facility] Pulmonary Disease 11/23/21 documented as of this encounter
--- OUTSIDE RECORDS SUMMARY | 2025-05-15 11:23 | XMS_ITS | Clinical Summary ---
Author Organization [facility] Address [address] [place] [address] Care Team Providers Care Milieu Manager Name Role Phone Unavailable Primary Care [...] Urine, Random 242 20 - 320 mg/dL [facility] Microalbumin, Urine, Random 12.1 See Note: mg/dL [facility] Comment: Reference Range: Reference Range Not established Microalbumin/Creat inine Ratio 50(H) <30 mcg/mg creat [facility] Comment: The ADA defines abnormalities in [...] URINE ORDERABLES Final Result Performing Organization Address [facility] de Phone Number [facility] [address] [place] [address], [place] [address] * (ABNORMAL) Hemoglobin A1c (06/06/2022 8:55 AM EST) Hemoglobin A1C 6.5(H) <5.7 % of total Hgb [facility] Comment: For someone without known diabetes, [...] MD LAB BLOOD ORDERABLES Final Re sult [facility] [address], [place] [address] * (ABNORMAL) Basic Metabolic Panel (06/06/2022 8:55 AM EST) Glucose 129(H) 65 - 99 mg/dL [facility] Comment: Fasting reference interval For someone without known diabetes, a glucose value >125 mg/dL indicates that they may have diabetes and this should be confirmed with a follow-up test. Blood Urea Nitrogen (BUN) 33(H) 7 - 25 mg/dL [facility] Creatinine 1.49(H) 0.70 - 1.30 mg/dL [facility] Creatinine w/ eGFR 54(L) > OR = 60 mL/min/1.7 3m2 [facility] Comment: The eGFR is based on the CKD-EPI 2020 equation. To calculate the new eGFR from a previous Creatinine or Cystatin C result, go to https://www.kidney.org/professionals/ kdoqi/gfr%5Fcalculator BUN/Creatinine Ratio 22 6 - 22 (calc) [facility] Sodium 139 135 - 146 mmol/L [facility] Potassium 4.1 3.5 - 5.3 mmol/L [facility] Chloride 102 98 - 110 mmol/L [facility] CO2 27 20 - 32 mmol/L [facility] Calcium 9.5 8.6 - 10.3 mg/dL [facility] Blood specimen (specimen) 06/06/2022 8:55 AM EST 06/06/2022 8:55 AM EST Narrative [facility] - 06/07/2022 4:59 PM EST FASTING:YES FASTING: YES us Orlin Chambers MD LAB BLOOD ORDERABLES Final Re sult [facility] [address], [place] [address] * (ABNORMAL) Lipid Panel [facility] LDL (12/07/2021 8:13 AM EDT) Cholesterol, Total 191 <200 mg/dL [facility] Cholesterol, HDL 48 > OR = 40 mg/dL [facility] Triglycerides 237(H) <150 mg/dL [facility] Comment: If a non-fasting specimen was collected, consider repeat triglyceride testing on a fasting specimen if clinically indicated. Chris et al. J. of Clin. Lipidol. 2015;9:129-169. LDL Cholesterol 107(H) mg/dL (calc) [facility] Comment: Reference range: <100 Desirable range <100 mg/dL for primary prevention; <70 mg/dL for patients with CHD or diabetic patients with > or = 2 CHD risk factors. LDL-C is now calculated using the Michael-Rosario calculation, which is a validated novel method providing better accuracy than the Friedewald equation in the estimation of LDL-C. Michael SS et al. ELSY. 2013;310(19): 6879-4030 (http://education.Baidu/faq/IBK255) Cholesterol/HDL Ratio 4.0 <5.0 (calc) [facility] Non HDL Chol. (LDL+VLDL) 143(H) <130 mg/dL (calc) [facility] Comment: For patients with diabetes plus 1 major ASCVD risk factor, treating to a non-HDL-C goal of <100 mg/dL (LDL-C of <70 mg/dL) is considered a therapeutic option. Blood specimen (specimen) 12/07/2021 8:13 AM EDT 12/07/2021 8:13 AM EDT Narrative [facility] - 12/08/2021 12:09 AM EDT FASTING:YES FASTING: YES us Orlin Chambers MD LAB BLOOD ORDERABLES Final Re sult [facility] [address], [place] [address] * CT Thorax w/o contrast (05/29/2019 9:23 [...] your patient to us, Travis Villarreal MD [id number] (Electronically Signed - 05/29/2019 09:23) Copy: ORLIN CHAMBERS DO [facility] 10 100 [place], [place] [id number] PATIENT , Narrative 05/29/2019 9:23 AM EST EXAMINATION: CT CHEST WITHOUT CONTRAST CLINICAL INFORMATION: Left lower lobe pulmonary nodule. COMPARISON: No relevant prior studies are available for comparison. TECHNIQUE: Multidetector volumetric CT imaging of the chest was done. Axial MIP volume rendering provided. Sagittal and coronal reformatted images were obtained. DLP: 523.69 mGy-cm FINDINGS: MOBILE PET GROOMER: Unremarkable. LUNGS: There is a 3 mm [...] images were obtained. DLP: 523.69 mGy-cm FINDINGS: MOBILE PET GROOMER: Unremarkable. LUNGS: There is a 3 mm nodule medially within the right upper lobe(axial image 151/505). There is an adjacent 1-2 mm nodule (axial [id number]). There is an irregular 0.6 cm nodule [...] interval change. According to the UPDATED 2017 [facility] recommendations, the advised follow up imaging [...] your patient to us, Travis Villarreal MD [id number] (Electronically Signed - 05/29/2019 09:23) Copy: ORLIN CHAMBERS DO [facility] 10 100 [place] [place] [address] PATIENT , Kelly Bustillo MD IMG CT ORDERABLES Final Result from Last 3 Months or Most Recently Relevant to Health Maintenance Insurance [employer] [place] [employer] MEDICARE Care Teams Milieu Manager Relationship Specialty Start Date End Date Juma Harrington [facility] Pulmonary Disease 11/23/21
--- OUTSIDE RECORDS SUMMARY | 2025-05-15 11:23 | XMS_ITS | Encounter Summary ---
Author Organization [facility] Address [address] [place] [address] Care Team Providers Care Hand Mold Maker Name Role Phone Unavailable Primary Care Provider Unavailabl e Encounter Details Date Type Department Care Team ([facility] st Contact Info) Description 11/05/2023 Scanned Document [facility] CARDI[facility] SCAN Cardiology, Scan Social History Tobacco [...] filedocumented in this encounter Care Teams Hand Mold Maker Relationship Specialty Start Date End Date Juma Harrington [facility] Pulmonary Disease 11/23/21 documented as of this encounter
--- OUTSIDE RECORDS SUMMARY | 2025-05-15 11:23 | XMS_ITS | Clinical Summary ---
Author Organization [facility] Address [address] [place] [address] Care Team Providers Care Water Quality Assistant Name Role Phone Orlin Chambers Primary Care Provider [phone] Allergies No known active allergies Medications Medication [...] age to complete this topic Care Teams Water Quality Assistant Relationship Specialty Start Date End Date Orlin Chambers DO PCP - General Family Medicine 06/17/18
--- OUTSIDE RECORDS SUMMARY | 2025-05-15 11:23 | XMS_ITS | Clinical Summary ---
Author Organization [facility] Address [address] [place] [address] Phone Care Team Providers Care Geriatric Aide Name Role Phone Jas Byrd Primary Care Provider Surgical History Surgery Date Site/Laterality Comments WISDOM TOOTH EXTRACTION PROCEDURE:WISDOM TOOTH EXTRACTION KNEE ARTHROSCOPY 06/03/2019 Left PROCEDURE:KNEE ARTHROSCOPY;COMMENT:Procedure: LEFT KNEE ARTHROSCOPY, PARTIAL MEDIAL MENISCECTOMY; Surgeon: David Pack MD; Location: [facility]; [facility]; Laterality: Left; Medical History Medical History Date [...] age to complete this topic Care Teams Geriatric Aide Relationship Specialty Start Date End Date Jas Byrd PA [address] [place] [address] PCP - General Physician Corporate Services Manager 01/13/25
--- OUTSIDE RECORDS SUMMARY | 2025-05-15 11:23 | XMS_ITS | Encounter Summary ---
Author Organization [facility] Address [address] [place] [address] Care Team Providers Care Organ Grinder Name Role Phone Orlin Chambers MD Primary Care Provider [phone] Reason for Visit * Reason Onset Date Comments Medication Refill 11/10/2022 Encounter Details Date Type Department Care Team (Late st Contact Info) Description 11/10/2022 Refill [facility] [address] [place] [address] 203 [place] [address] Olrin Chambers MD 100 [facility] Liam [address] [place], [place] [id number] Insomnia, unspecified type Social History Tobacco Use [...] type documented in this encounter Care Teams Organ Grinder Relationship Specialty Start Date End Date Orlin Chambers MD 100 [place] [address] PCP - General Family Medicine 01/29/19 08/16/23 Juma Harrington [facility] Pulmonary Disease 11/23/21 documented as of this encounter
--- OUTSIDE RECORDS SUMMARY | 2025-05-15 11:23 | XMS_ITS | Encounter Summary ---
Author Organization [facility] Address [address] [place] [address] Care Team Providers Care Retort Load Expediter Name Role Phone Orlin Chambers MD Primary Care Provider [phone] Encounter Details Date Type Department Care Team (Late st Contact Info) Description 02/27/2023 Scanned Document [facility] EMERGENCY MED SCAN Emergency Medicine, [...] on filedocumented in this encounter Care Teams Retort Load Expediter Relationship Specialty Start Date End Date Orlin Chambers MD [address] [place] [address] PCP - General Family Medicine 01/29/19 08/16/23 Juma Harrington [facility] Pulmonary Disease 11/23/21 documented as of this encounter
--- OUTSIDE RECORDS SUMMARY | 2025-05-15 11:23 | XMS_ITS | Encounter Summary ---
Author Organization [facility] Address [address] [place] [address] Care Team Providers Care Veterinary Anatomist Name Role Phone Orlin Chambers MD Primary Care Provider [phone] Encounter Details Date Type Department Care Team (Late st Contact Info) Description 11/01/2020 Scanned Document [facility] ORTHO SURGERY SCAN Orthopedic Surgery, Scan Social [...] filedocumented in this encounter Care Teams Veterinary Anatomist Relationship Specialty Start Date End Date rOlin Chambers MD [address] [place] [address] PCP - General Family Medicine 01/29/19 08/16/23 Juma Harrington [facility] Pulmonary Disease 11/23/21 documented as of this encounter
--- OUTSIDE RECORDS SUMMARY | 2025-05-15 11:23 | XMS_ITS | Encounter Summary ---
Author Organization [facility] Address [address] [place] [address] Care Team Providers Care Church Supervisor Name Role Phone Orlin Chambers MD Primary Care Provider [phone] Encounter Details Date Type Department Care Team (Late st Contact Info) Description 10/18/2020 Scanned Document [facility] 10 100 [facility] 203 [place] [address] Michael Sweeney MD [address] [place] [address] Social History Tobacco Use Types Packs/Day Years [...] on filedocumented in this encounter Care Teams Church Supervisor Relationship Specialty Start Date End Date Orlin Chambers MD [address] [address] PCP - General Family Medicine 01/29/19 08/16/23 Juma Harrington [facility] Pulmonary Disease 11/23/21 documented as of this encounter
--- OUTSIDE RECORDS SUMMARY | 2025-05-15 11:23 | XMS_ITS | Encounter Summary ---
Author Organization [facility] Address [address] [place] [address] Care Team Providers Care Food Demonstrator Name Role Phone Orlin Chambers MD Primary Care Provider Encounter Details Date Type Department Care Team (Late st Contact Info) Description 08/24/2020 Scanned Document [facility] [address] [place] [address] Provider, External, [address] [place] [address] Social History Tobacco Use Types Packs/Day Years [...] on filedocumented in this encounter Care Teams Food Demonstrator Relationship Specialty Start Date End Date Orlin Chambers MD 100 [place] [address] PCP - General Family Medicine 01/29/19 08/16/23 Juma Harrington [facility] Pulmonary Disease 11/23/21 documented as of this encounter
--- OUTSIDE RECORDS SUMMARY | 2025-05-15 11:23 | XMS_ITS | Encounter Summary ---
Author Organization [facility] Address [address] [place] [address] Care Team Providers Care Paradichlorobenzene Machine Operator Name Role Phone Orlin Chambers MD Primary Care Provider [phone] Encounter Details Date Type Department Care Team (Late st Contact Info) Description 01/25/2023 Scanned Document [facility] ORTHO SURGERY SCAN [place] [address] [place] [address] Social History Tobacco Use Types Packs/Day Years [...] on filedocumented in this encounter Care Teams Paradichlorobenzene Machine Operator Relationship Specialty Start Date End Date Orlin Chambers MD [address] [place] [address] PCP - General Family Medicine 01/29/19 08/16/23 Juma Harrington [facility] Pulmonary Disease 11/23/21 documented as of this encounter
--- OUTSIDE RECORDS SUMMARY | 2025-05-15 11:23 | XMS_ITS | Encounter Summary ---
Author Organization [facility] Address [address] [place] [address] Care Team Providers Care Electronic Warfare Technical Name Role Phone Orlin Chambers MD Primary Care Provider [phone] Reason for Visit * Reason Comments Medication Refill Encounter Details Date Type Department Care Team (Late st Contact Info) Description 08/04/2019 Refill [facility] 10 100 [facility] [address] [place] [address] Anayeli Del Rosario, DENTAL ASSISTANT INSTRUCTOR 100 [facility] Liam [address] [place], [place] [phone] Hyperlipidemia, unspecified hyperlipidemia type Social History Tobacco [...] type documented in this encounter Care Teams Electronic Warfare Technical Relationship Specialty Start Date End Date Orlin Chambers MD 100 [place] [address] PCP - General Family Medicine 01/29/19 08/16/23 Juma Harrington [facility] Pulmonary Disease 11/23/21 documented as of this encounter
--- OUTSIDE RECORDS SUMMARY | 2025-05-15 11:23 | XMS_ITS | Encounter Summary ---
Author Organization [facility] Address [address] [place] [address] Care Team Providers Care Med Surg Rn Name Role Phone Orlin Chambers MD Primary Care Provider [phone] Encounter Details Date Type Department Care Team (Late st Contact Info) Description 12/06/2022 Scanned Document [facility] [address] [address] Cardiology, Scan Social History Tobacco [...] on filedocumented in this encounter Care Teams Med Surg Rn Relationship Specialty Start Date End Date Orlin Chambers MD 100 [place] [address] PCP - General Family Medicine 01/29/19 08/16/23 Juma Harrington [facility] Pulmonary Disease 11/23/21 documented as of this encounter
--- OUTSIDE RECORDS SUMMARY | 2025-05-15 11:23 | XMS_ITS | Encounter Summary ---
Author Organization [facility] Address [address] [place] [address] Care Team Providers Care Parlor Chaperone Name Role Phone Orlin Chambers MD Primary Care Provider Encounter Details Date Type Department Care Team (Late st Contact Info) Description 01/29/2019 Scanned Document [facility] 10 100 [facility] [address] [place] [address] Provider, Hortencia, [address] [place] [address] Social History Tobacco Use Types Packs/Day Years [...] on filedocumented in this encounter Care Teams Parlor Chaperone Relationship Specialty Start Date End Date Orlin Chambers MD 100 [facility] Liam [address] [place], [place] [phone] PCP - General Family Medicine 01/29/19 08/16/23 Juma Harrington [facility] Pulmonary Disease 11/23/21 documented as of this encounter
== END 2025-05-15 10:36 | disposition home or self-care (01) ==
LOC: HO.HKA 10:03
PROVIDERS: PCP Physician Assistant; Visit Provider Internal Medicine Nephrology
DX: I10 Essential (primary) hypertension (principal); R80.9 Proteinuria, unspecified; N18.31 Chronic kidney disease, stage 3a
CPT/HCPCS: 99214